=== PATIENT | female | born 1935 | race Caucasian/White ===

== ENCOUNTER 2016-11-07 13:00 | Emergency (ER) | payer MEDICARE, OTHER ==
[~2016-11-07] VITALS: Ht 162.6 cm; Wt 63.5 kg
[~2016-11-07 13:00] MED LIST: ACET-461 PO; ACHYD1T PO; ACTOS15 MG; ASP81CT; ASP81CT PO; ASP81TEC PO; ASPI-892 PO; ATOR10TA; ATOR80TA75; ATOR80TA76 PO; ATR20T PO; CANA100T PO; CLOP75TA PO; CYCL10TA9 PO; DCS100C PO; DICL100G13 TOP; DICL100G18 TP; DOCU-143 PO; DOCU100T7; EST.625T; ESTR0.755 PO; ESTR1.5T4; ESTR42.52 VG; FENO135C PO; FISH1CAP15 PO; HYDR-3720; HYDR-3816; IBP800T PO; INUL2.5T PO; LEVO500T69 PO; LOPE2TAB17 PO; LORA-794; MELA3TAB52 PO; METF500T4 PO; METR500T PO; MTF500T PO; MTP25TSR; NAPR220T66 PO; OMG1KC PO; ONDA4TAB8 PO; ONDAN4ODT PO; OXYB30GE TD; OXYC-197 PO; OXYC-471; PANT20TA2 PO; PANT40TA3 PO; PHEN1SUP3 PR; PNT40TEC PO; PRED20TA PO; PRM25T PO; PSYL575P4 PO; SIMV20TA3 PO; SMV20T PO; TEMA30CA PO; TEMA30CA6 PO; TRAM50TA2 PO; TYLENOL RAPID REL PO; VNL37.5T PO; ZOLP10TA5
--- OUTSIDE RECORDS SUMMARY | 2016-11-07 13:06 | XMS REPORT | Continuity of Care Document ---
Author Author [facility] Organization [facility] Address Unknown Phone Unavailable Support Name Relationship Address Phone JAZMIN ROPER FACPS FAC Caregiver [address] [facility] [place] [address] [place] [address] ALBERTO NAZARIO MD Caregiver [address] [facility] [place] [address] ALLISON GLORIA MD Caregiver [address] [place] [address] MUNIR ROCHE MD Caregiver [address] [place] [address] MICHELET JOHNSON Next Of Kin [address] [place] [id number] Insurance Providers Payer Name Policy Number Subscriber Name Relationship Wps Medicare [id number] Mary Johnson 18 Self / Same As Patient [place] [employer] [id number] Mary Johnson 18 Self / Same As Patient Advance Directives Directive Response Recorded Date/Time Advance Directives Yes 11/05/14 10:00am Health Care Power of Director Of Digital Technology No 11/05/14 10:00am Organ Donor Yes 11/05/14 10:00am Resuscitation Status Full Code 11/05/14 10:00am Problems Medical Problems Problem Onset Date Status Dizziness Unknown Active Vertigo Unknown Active Medications Medication Dose Route Sig Days/Qty Instructions Order Date Discontinued Date Status Pioglitazone HCl 09/18/09 11/20/10 Discontinued Estrogens Conjugated 09/18/09 09/18/09 Discontinued Atorvastatin Calcium 09/18/09 09/18/09 Discontinued Zolpidem Tartrate 09/18/09 09/18/09 Discontinued Lorazepam 09/18/09 11/20/10 Discontinued Aspirin 81 Mg PO DAILY 09/18/09 10/24/11 Discontinued Estropipate 09/18/09 11/21/10 Discontinued Simvastatin 20 Mg PO DAILY 09/18/09 10/11/11 Discontinued Venlafaxine HCl 37.5 Mg PO BEDTIME 09/18/09 Active Temazepam 30 Mg PO BEDTIME 09/18/09 Active Clopidogrel Bisulfate 75 Mg PO DAILY 12/30/09 10/24/11 Discontinued Metoprolol Succinate 12/30/09 11/20/10 Discontinued Docusate Sodium 12/30/09 11/20/10 Discontinued Acetaminophen/Hydrocodone Bitart 12/30/09 11/20/10 Discontinued Aspirin DAILY 11/20/10 11/21/10 Discontinued Metformin HCl (Glucophage) 500 Mg PO TWICE A DAY 11/20/10 08/05/14 Discontinued Fish Oil 1,000 Mg PO TWICE A DAY 11/20/10 08/05/14 Discontinued Estropipate 1.5 Mg PO BEDTIME 11/21/10 10/03/13 Discontinued Simvastatin 20 Mg PO DAILY 01/07/11 10/17/11 Discontinued Promethazine HCl 1 Tab PO FOUR TIMES DAILY 20 Qty 01/07/11 10/11/11 Discontinued Levofloxacin 1 Each PO DAILY 10 Qty FOR INFECTION 01/14/11 10/11/11 Discontinued Fenofibrate 135 Mg PO DAILY 10/11/11 Active Atorvastatin Calcium 1 Each PO DAILY 10/11/11 10/03/13 Discontinued [Tylenol Rapid Rel] 1,000 Mg PO Q6 PRN 10/11/11 10/03/13 Discontinued Atorvastatin Calcium 1 Each PO DAILY 10/17/11 10/17/11 Discontinued Acetaminophen/Hydrocodone Bitart 1 Tab PO Q 4 HOURS NEEDED 04/26/13 Discontinued Ibuprofen 800 Mg PO Q 6 HRS NEEDED 10/19/11 04/26/13 Discontinued Docusate Sodium 100 Mg PO TWICE A DAY 10/19/11 Active Clopidogrel Bisulfate 75 Mg PO DAILY 10/26/11 11/05/14 Discontinued Aspirin 81 Mg PO DAILY 10/26/11 08/05/14 Discontinued Pantoprazole Sodium 1 Tab PO DAILY 30 Qty 12/30/11 04/26/13 Discontinued Ondansetron HCl 4 Mg PO EVERY 4HRS 10 Qty FOR NAUSEA AND VOMITING 04/26/13 Discontinued Levofloxacin 1 Each PO DAILY 10 Qty 12/30/11 04/26/13 Discontinued Loperamide HCl 0 PO DIRECTED 2 CAPS INITIALLY, THEN 1 CAP AFTER 10/03/13 Discontinued Estradiol 1 Gm VG TWICE WEEKLY 10/03/13 Active Oxybutynin Chloride TD NEEDED For LEAVING THE HOUSE 10/03/13 Active Starch 1 Supp.rect [place] DAILY PRN HEMORRHOIDS 10/03/13 Active Fish Oil/Dha/Epa 1,200 Mg PO TWICE A DAY 08/05/14 Active Aspirin 81 Mg PO DAILY 08/05/14 Active Atorvastatin Calcium 20 Mg PO DAILY NIGHT 08/05/14 Active Atorvastatin Calcium 40 Mg PO BEDTIME 08/05/14 Active Acetaminophen 1,000 Mg PO BEDTIME TAKES 2 (500MG) TABLETS 08/05/14 Active Diclofenac Sod 2 Gm TOP FOUR TIMES DAILY 08/05/14 Active Inulin 4 Tab.chew PO DAILY 08/05/14 Active Pantoprazole Sodium 40 Mg PO DAILY 90 Qty 11/05/14 Active Social History Social History Problem Response Recorded Date/Time Alcohol Use Denies Use 10/03/2013 1:20pm Recreational Drug Use No 10/03/2013 1:20pm Recent Foreign Travel No 11/05/2014 10:00am Smoking Status Never a Smoker 11/05/2014 10:00am Query Response Start Date Stop Date Smoking Status Never a Smoker Hospital Discharge Instructions No hospital discharge instructions. Plan of Care No plan of care. Functional Status No functional status results. Allergies, Adverse Reactions, Alerts Allergen Type Severity Reaction Status Last Updated Sulfa (Sulfonamide Antibiotics) ([id number]) Allergy Unknown Active 05/12 Immunizations Name Given Type Date of Pneumonia Vaccine 11/18/09 Historical Date of Influenza Vaccine 08/05/14 Historical Vital Signs Acute Vital Signs Vital Response Date/Time Temperature (Fahrenheit) 97.6 degrees F (97.6 - 99.5) Temperature (Calculated Celsius) 36.50796 degrees C (36.4 - 37.5) Temperature Source Tympanic Pulse Rate (adult) 72 bpm (60 - 90) Respiratory Rate 14 bpm (12 - 24) O2 Sat by Pulse Oximetry 94 % (88 - 100) Blood Pressure 124/63 mm Hg Pain Pain Intensity 0 Height (Feet) 5 feet Height (Inches) 3.00 inches Height (Calculated Centimeters) 160.850820 cm Weight (Pounds) 146 pounds Weight (Calculated Grams) 77785.487 gm Weight (Calculated Kilograms) 66.898163 kilograms Height 5 ft 3 in Weight 146 lb Body Mass Index 25.9 kg/m^2 Results No known relevant diagnostic tests, laboratory data and/or discharge summary. Procedures Procedure Status Date Provider(s) Esophagogastroduodenoscopy (EGD) with dilation completed 11/05/14 ALBERTO NAZARIO MD Encounters Encounter Location Date/Time Registered Surgical Day Care Via [facility] 11/05/14 9:50am Registered Clinic Via [facility] 10/31/14 6:08am
[2016-11-07] MEDS ORDERED: CHOL20003 PO (14:03)
[2016-11-07] MEDS ORDERED: Probiotic (14:03)
--- NOTE | 2016-11-07 14:34 | ED General ---
General Chief Complaint: Cough/Cold/Flu Symptoms Stated Complaint: CONGESTION, WELTS, CONFUSION Nursing Triage Note: Pt c/o sore throat, runny nose, headache, and congestion x 2 weeks. Pt also c/o itchy welts to arms and legs that started throughout the night last night. Nursing Sepsis Screen: No Definite Risk Source of Information: Patient Exam Limitations: No Limitations History of Present Illness Time Seen by Provider: 14:34 Initial Comments 81-year-old female patient presents to the emergency department complaints of nasal congestion, rhinorrhea, sore throat, and headache for 2 weeks. Also complains of welts to the bilateral upper and bilateral lower extremities beginning last night. Patient initially denied any new medications, changes in soaps, new foods, or new lotions. However reviewing medical reconciliation history patient is noted just started metronidazole. Patient states she does have 2-3 days left of the medication. States she is being treated for C. difficile that she may undergo bladder surgery as an outpatient. Timing/Duration: Other (URI x2 wks. Rash x12-16 hours.) Modifying Factors: worse with Other (worse with scratching) Allergies and Home Medications Allergies Coded Allergies: metronidazole (Verified Allergy, Intermediate, hives, 11/07/16) Sulfa (Sulfonamide Antibiotics) (Unverified Allergy, Unknown, 08/05/14) ciprofloxacin (Verified Allergy, Unknown, ITCHING, 09/03/15) Home Medications Acetaminophen 500 Mg Tablet 1,000 MG PO Q6H PRN PRN PAIN (Reported) TAKES 2 (500MG) TABLETS Atorvastatin Calcium 40 Mg Tablet 40 MG PO DAILY (Reported) Cholecalciferol (Vitamin D3) 2,000 Unit Capsule 2,000 UNIT PO BID (Reported) Diphenoxylate HCl/Atropine 1 Each Tablet 1 TAB PO QID PRN PRN DIARRHEA (Reported ) Docusate Sodium 100 Mg Capsule 100 MG PO BID (Reported) Estrogens Conjugated 30 Gm Cr 0.5 GM VG RAJAN,WE (Reported) Famotidine 20 Mg Tablet 20 MG PO BID (Reported) Insulin Aspart 100 Unit/1 Ml Susp 3 UNIT SQ BID WITH MEALS (Reported) TAKES WITH MORNING AND EVENING MEAL Lactobacillus Acidophilus 1 Each Capsule 1 CAP PO BID (Reported) Melatonin 3 Mg Tab.rapdis 6 MG PO HS (Reported) TAKES 2 (3MG) TABLETS Nitrofurantoin Monohyd/M-Cryst 100 Mg Capsule 7Days 100 MG PO BID (Reported) 7 DAY THERAPY FILLED 11-16-16 Phenazopyridine HCl 200 Mg Tablet 200 MG PO TID PRN PRN PAIN (Reported) Temazepam 30 Mg Capsule 30 MG PO HS (Reported) Tramadol HCl 50 Mg Tablet 50 MG PO Q6H PRN PRN PAIN (Reported) Constitutional: No chills, No diaphoresis, No dizziness, No fever, malaise EENTM: see HPI Respiratory: No cough, No dyspnea on exertion, No orthopnea, No short of breath , No stridor, No wheezing Cardiovascular: No chest pain, No edema, No palpitations, No syncope Gastrointestinal: No abdominal pain, No constipation, No diarrhea, No loss of appetite, No nausea, No vomiting Genitourinary: no symptoms reported Musculoskeletal: no symptoms reported Skin: see HPI rash Psychiatric/Neurological: See HPI HeadacheDenies Numbness, Denies Paresthesia , Denies Tingling, Denies Weakness Immunological/Allergic: see HPI All Other Systems Reviewed Negative Unless Noted: Yes (Negative excepted noted.) Past Qbalxam-Dbaezj-Bsgejd Hx Patient Social History Alcohol Use: Denies Use Recreational Drug Use: No Smoking Status: Former Smoker Former Smoker/When Quit: Oct 30, 1999 Recent Foreign Travel: No Contact w/Someone Who Travel: No Recent Infectious Disease Expo: No Physical Abuse Screen: No Sexual Abuse: No Immunizations Up To Date Tetanus Booster (TDap): Unknown PED Vaccines UTD: No Date of Pneumonia Vaccine: May 17, 2016 Date of Influenza Vaccine: Aug 17, 2016 Seasonal Allergies Seasonal Allergies: No Surgeries HX Surgeries: Yes (BACK, HAD TO HAVE 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) Surgeries: Appendectomy, Gallbladder, Hysterectomy Respiratory Hx Respiratory Disorders: Yes (IS TO HAVE A SLEEP STUDY) Respiratory Disorders: Pneumonia Cardiovascular Hx Cardiac Disorders: Yes (STENTS, 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) Neurological Hx Neurological Disorders: No Reproductive System Hx Reproductive Disorders: Yes Sexually Transmitted Disease: No HIV/AIDS: No Female Reproductive Disorders: Denies Genitourinary Hx Genitourinary Disorders: Yes Genitourinary Disorders: Bladder Infection Gastrointestinal Hx Gastrointestinal Disorders: Yes Gastrointestinal Disorders: Gastroesophageal Reflux, Chronic Constipation, Diverticulosis, Hemorrhoids, Polyps Musculoskeletal Hx Musculoskeletal Disorders: Yes Musculoskeletal Disorders: Arthritis, Chronic Back Pain Endocrine Hx Endocrine Disorders: Yes Endocrine Disorders: Diabetes, Non-Insulin dep HEENT HX ENT Disorders: Yes (GLASSES) Loss of Vision: Bilateral Hearing Impairment: Denies Cancer Hx Cancer: No Psychosocial Hx Psychiatric Problems: No (IN THE PAST) Behavioral Health Disorders: Depression Integumentary HX Skin/Integumentary Disorder: Yes (OCCASIONALLY) Skin/Integumentary Disorders: Psoriasis Blood Transfusions Hx Blood Disorders: Yes (ANEMIA-FROM HEMORRHOIDS) Adverse Reaction to a Blood Tr: No (HAS HAD BLOOD TRANSFUSION WITH NO DIFFICULTY) Family Medical History Significant Family History: No Pertinent Family Hx Family Medial History: Cancer of mouth Diabetes mellitus 19 FATHER Dysphasia G8 SISTER FH: thyroid cancer Myocardial infarction 19 FATHER Physical Exam Vital Signs Capillary Refill : Less Than 3 Seconds General Appearance: No Apparent Distress WD/WN HEENT: PERRL/EOMI TMs Normal Pharyngeal ErythemaNo Photophobia, Other ( positive rhinorrhea.) Neck: Full Range of Motion Normal Inspection Non Tender Supple Respiratory: Lungs Clear Normal Breath Sounds No Respiratory Distress Cardiovascular: Regular Rate, Rhythm No Murmur Normal Peripheral Pulses Gastrointestinal: Normal Bowel Sounds Non Tender SoftNo Distended Back: Normal Inspection Extremity: Normal Capillary Refill Non Tender No Calf Tenderness No Pedal Edema Other (positive wheals noted on the bilateral upper and bilateral lower extremities.) Neurologic/Psychiatric: Alert Oriented x3 No Motor/Sensory Deficits Normal Mood/Affect kier pleater II-XII Norm as Tested Skin: Normal Color Warm/DryNo Cool, No Cyanosis, No Diaphoresis, No Jaundice, No Mottled, No Pallor, No Petechia, Rash (positive wheals noted on the bilateral upper and bilateral lower extremities.) Progress/Results/Core Measures Results/Orders Lab Results My Orders Medications Given in ED Vital Signs/I&O Blood Pressure Mean: 89 Departure Communication Progress Notes Laboratory findings discussed with the patient. Patient is noted to have improvement in rash with the medications given in the emergency department. Patient is alert and oriented 3, no acute distress. Lungs are clear to auscultation. Vascular regular rate and rhythm. Proceed with discharge to home. Patient instructed to contact Dr. Loyola and follow-up as an outpatient for recheck. Patient instructed to stop the metronidazole immediately. All return precautions were discussed with the patient as described in the discharge instructions of this report. Patient voices understanding and agrees with the treatment plan. Impression Impression: Primary Impression: Urticaria due to drug allergy Additional Impression: C. difficile diarrhea Disposition: HOME, SELF-CARE Condition: Improved Departure-Patient Inst. Decision time for Depature: 15:48 Referrals: ALLISON LOYOLA MD (PCP/Family) Primary Care Physician Add. Discharge Instructions: All discharge instructions reviewed with patient and/or family. Voiced understanding. Medications as instructed. Claritin over the counter as directed for allergic reaction. Benadryl [id number] as directed for breakthrough rash or itching. Cool compresses. Stop metronidazole immediately. Drink plenty of fluids. Monitor blood sugars closely. Follow-up with Dr. Loyola as an outpatient for recheck. Discuss need for diabetic medication change. Return to the emergency department immediately for worsened hives, swelling, difficulty swallowing, difficulty breathing, vomiting, headache, or any other concerns. NATHAN BAUGH Nov 07, 2016 14:34 Decision time for Depature: 15:48 Referrals: ALLISON LOYOLA MD (PCP/Family) Primary Care Physician Add. Discharge Instructions: All discharge instructions reviewed with patient and/or family. Voiced understanding. Medications as instructed. Claritin over the counter as directed for allergic reaction. Benadryl [id number] as directed for breakthrough rash or itching. Cool compresses. Stop metronidazole immediately. Drink plenty of fluids. Monitor blood sugars closely. Follow-up with Dr. Loyola as an outpatient for recheck. Discuss need for diabetic medication change. Return to the emergency department immediately for worsened hives, swelling, difficulty swallowing, difficulty breathing, vomiting, headache, or any other concerns. Scripts Prednisone 20 Mg Tab20 Mg PO DAILY #3 TAB Ref 0 Prov:NATHAN BAUGH 11/07/16 Famotidine (Pepcid)20 Mg [id number] Mg PO BID #20 TAB Ref 0 Prov:NATHAN BAUGH 11/07/16 NATHAN BAUGH Nov 07, 2016 14:34
[2016-11-07] MEDS ORDERED: methylPREDNISolone 125 MG (Solu-MEDROL) VIAL IV STA (14:54)
[2016-11-07] MEDS ORDERED: NS IV 1000 ML 1,000 ML IV ONE (14:54)
[2016-11-07] MEDS ORDERED: diphenhydrAMINE 50 MG/ML INJ (BENADRYL) IV STA (14:54)
[2016-11-07] MEDS ORDERED: FAMOTIDINE 20MG/2ML IV (PEPCID) IV STA (14:54)
[2016-11-07] MEDS ORDERED: FAMO-119 PO (15:51)
[2016-11-07] MEDS ORDERED: PRD20T PO (15:51)
[2016-11-07 17:26] VITALS: BP 138/63
[2016-11-15] MEDS ORDERED: NOVALOG SQ (12:37)
[2016-11-15] MEDS ORDERED: ATOR40TA70 PO (12:37)
[2016-11-15] MEDS ORDERED: BIFI460C PO (12:37)
== END 2016-11-07 17:26 | disposition home or self-care (01) ==
LOC: EDUNIT# 13:00 → ER 13:01
DX: L50.0 Allergic urticaria (principal); E11.9 Type 2 diabetes mellitus without complications; Z79.82 Long term (current) use of aspirin; Z79.899 Other long term (current) drug therapy
CPT/HCPCS: 82962; 96374; 96375

== ENCOUNTER 2016-11-15 12:40 | Outpatient (CLI) | payer MEDICARE, OTHER ==
--- OUTSIDE RECORDS SUMMARY | 2016-11-14 05:42 | XMS REPORT | Continuity of Care Document ---
Author Author [facility] Organization [facility] Address Unknown Phone Unavailable Support Name Relationship Address Phone JAZMIN ROPER FACPS FAC Caregiver [address] [facility] [address] [place] [address] ALBERTO NAZARIO MD Caregiver [address] [facility] [place] [address] ALLISON GLORIA MD Caregiver [address] [place] [address] MUNIR ROCHE MD Caregiver [address] [place] [address] MICHELET JOHNOSN Next Of Kin [address] [place] [id number] Insurance Providers Payer Name Policy Number Subscriber Name Relationship Wps Medicare [id number] Mary Johnson 18 Self / Same As Patient [place] [employer] [id number] Mary Johnson 18 Self / Same As Patient Advance Directives Directive Response Recorded Date/Time Advance Directives Yes 11/05/14 10:00am Health Care Power of Cane Flume Watcher No 11/05/14 10:00am Organ Donor Yes 11/05/14 [...] THE HOUSE 10/03/13 Active Starch 1 Supp.rect [place] DAILY PRN HEMORRHOIDS 10/03/13 Active Fish Oil/Dha/Epa [...] Reaction Status Last Updated Sulfa (Sulfonamide Antibiotics) ([id number]) Allergy Unknown Active 05/12 Immunizations Name Given Type Date of Pneumonia Vaccine 11/18/09 Historical Date of Influenza Vaccine 08/05/14 Historical Vital Signs Acute Vital Signs Vital Response Date/Time Temperature (Fahrenheit) 97.6 degrees F (97.6 - 99.5) Temperature (Calculated Celsius) 36.88289 degrees C (36.4 - 37.5) Temperature Source Tympanic Pulse Rate (adult) 72 bpm (60 - 90) Respiratory Rate 14 bpm (12 - 24) O2 Sat by Pulse Oximetry 94 % (88 - 100) Blood Pressure 124/63 mm Hg Pain Pain Intensity 0 Height (Feet) 5 feet Height (Inches) 3.00 inches Height (Calculated Centimeters) 160.873422 cm Weight (Pounds) 146 pounds Weight (Calculated Grams) 20301.487 gm Weight (Calculated Kilograms) 66.091971 kilograms Height 5 ft 3 in Weight 146 lb Body Mass Index 25.9 kg/m^2 Results No known relevant diagnostic tests, laboratory data and/or discharge summary. Procedures Procedure Status Date Provider(s) Esophagogastroduodenoscopy (EGD) with dilation completed 11/05/14 ALBERTO NAZARIO MD Encounters Encounter Location Date/Time Registered Surgical Day Care [facility] 11/05/14 9:50am Registered Clinic [facility] 10/31/14 6:08am
[~2016-11-15] VITALS: Ht 162.6 cm; Wt 63.8 kg
[~2016-11-15 12:40] MED LIST changes: +ATOR40TA70 PO; +BIFI460C PO; +CHOL20003 PO; +FAMO-119 PO; +NOVALOG SQ; +PRD20T PO; +Probiotic
--- OUTSIDE RECORDS SUMMARY | 2016-11-15 12:43 | XMS REPORT | Continuity of Care Document ---
Author Author [facility] Organization [facility] Address Unknown Phone Unavailable Support Name Relationship Address Phone JAZMIN ROPER FACPS FAC Caregiver [address] [facility] [place] [address] [place] [address] ALBERTO NAZARIO MD Caregiver [address] [facility] [place] [address] ALLISON GLORIA MD Caregiver [address] [facility] [address] MUNIR ROCHE MD Caregiver [address] [place] [address] MICHELET JOHNSON Next Of Kin [address] [place] [id number] Insurance Providers Payer Name Policy Number Subscriber Name Relationship Wps Medicare [id number] Mary Johnson 18 Self / Same As Patient [place] [employer] [id number] Mary Johnson 18 Self / Same As Patient Advance Directives Directive Response Recorded Date/Time Advance Directives Yes 11/05/14 10:00am Health Care Power of Heavy Cleaner No 11/05/14 10:00am Organ Donor Yes 11/05/14 [...] THE HOUSE 10/03/13 Active Starch 1 Supp.rect [place] DAILY PRN HEMORRHOIDS 10/03/13 Active Fish Oil/Dha/Epa [...] Reaction Status Last Updated Sulfa (Sulfonamide Antibiotics) ([id number]) Allergy Unknown Active 05/12 Immunizations Name Given Type Date of Pneumonia Vaccine 11/18/09 Historical Date of Influenza Vaccine 08/05/14 Historical Vital Signs Acute Vital Signs Vital Response Date/Time Temperature (Fahrenheit) 97.6 degrees F (97.6 - 99.5) Temperature (Calculated Celsius) 36.28340 degrees C (36.4 - 37.5) Temperature Source Tympanic Pulse Rate (adult) 72 bpm (60 - 90) Respiratory Rate 14 bpm (12 - 24) O2 Sat by Pulse Oximetry 94 % (88 - 100) Blood Pressure 124/63 mm Hg Pain Pain Intensity 0 Height (Feet) 5 feet Height (Inches) 3.00 inches Height (Calculated Centimeters) 160.915945 cm Weight (Pounds) 146 pounds Weight (Calculated Grams) 03687.487 gm Weight (Calculated Kilograms) 66.568825 kilograms Height 5 ft 3 in Weight 146 lb Body Mass Index 25.9 kg/m^2 Results No known relevant diagnostic tests, laboratory data and/or discharge summary. Procedures Procedure Status Date Provider(s) Esophagogastroduodenoscopy (EGD) with dilation completed 11/05/14 ALBERTO NAZARIO MD Encounters Encounter Location Date/Time Registered Surgical Day Care [facility] 11/05/14 9:50am Registered Clinic [facility] 10/31/14 6:08am
[2016-11-16] MEDS ORDERED: PHEN-640 PO (08:43)
[2016-11-16] MEDS ORDERED: NITR-68 PO (08:43)
== END 2016-11-15 12:53 ==
LOC: PREOP 12:40
PROVIDERS: ATTEND Urology
DX: Z01.818 Encounter for other preprocedural examination (principal); D49.4 Neoplasm of unspecified behavior of bladder

== ENCOUNTER 2016-11-16 05:58 | Day surgery (SDC) | payer MEDICARE, OTHER ==
[~2016-11-16] VITALS: Ht 162.6 cm; Wt 63.8 kg
--- OUTSIDE RECORDS SUMMARY | 2016-11-16 06:02 | XMS REPORT | Continuity of Care Document ---
Author Author [facility] Organization [facility] Address Unknown Phone Unavailable Care Team Providers Care Nurses Superintendent Name Role Phone ALLISON GLORIA MD PCP Insurance Providers Payer Name Policy Number Subscriber Name Relationship [employer] Medicare [id number] Mary Johnson A 18 Self / Same As Patient [employer] [id number] Mary Johnson A 18 Self / Same As Patient Advance Directives Directive Response Recorded Date/Time Advance Directives No 11/15/16 12:32pm Health Care Power of Cigar Making Supervisor No 11/15/16 12:32pm Organ Donor No 11/15/16 12:32pm Resuscitation Status Full Code 11/15/16 12:32pm Problems Active Problems Medical Problem Onset Date Status Abdominal pain Unknown Acute C. difficile diarrhea Unknown Acute Diarrhea Unknown Acute Dizziness Unknown Acute Lesion of bladder Unknown Acute Muscle strain of left upper back Unknown Acute Muscle strain of left upper back Unknown Acute Nausea vomiting and diarrhea Unknown Acute Urinary tract infection Unknown Acute Urticaria due to drug allergy Unknown Acute Vertigo Unknown Acute anemia, symptomatic hemorrhoids Unknown Acute Medications Current Home Medications Medication Dose Units Route Directions Days/Qty Instructions Start Date Docusate Sodium 100 Mg 100 Mg Oral Twice A Day 10/19/11 Aspirin 81 Mg 81 Mg Oral Daily 08/05/14 Acetaminophen 500 Mg 1,000 Mg Oral Every 6 Hours as needed for Pain TAKES 2 (500MG) TABLETS 08/05/14 Tramadol Hcl 50 Mg 50 Mg Oral Twice A Day as needed for Pain Pantoprazole Sodium 40 Mg 40 Mg Oral Daily 09/03/15 Temazepam 30 Mg 30 Mg Oral Bedtime as needed for Sleep 09/03/15 Melatonin 3 Mg 12 Mg Oral Bedtime as needed for Insomnia TAKES 4 (3MG) TABLETS 09/03/15 Cholecalciferol (Vitamin D3) 2,000 Unit 2,000 Unit Oral Daily Famotidine 20 Mg 20 Mg Oral Twice A Day 20 11/07/16 Atorvastatin Calcium 40 Mg 40 Mg Oral Daily 11/15/16 Bifidobacter. Bifidum/B.longum 460 Mg 460 Mg Oral Daily 11/15/16 [Novalog] 3 Units Sub-Q Twice A Day 11/15/16 Past Home Medications Medication Directions Ordered Status Pioglitazone Hcl 15 Mg Tablet, 09/18/09 Discontinued Estrogens Conjugated 0.625 Mg Tablet, 09/18/09 Discontinued Atorvastatin Calcium 10 Mg Tablet, 09/18/09 Discontinued Zolpidem Tartrate 10 Mg Tablet, 09/18/09 Discontinued Lorazepam 0.5 Mg Tablet, 09/18/09 Discontinued Aspirin 81 Mg Tabec, 81 Mg Oral Daily 09/18/09 Discontinued Estropipate 1.5 Mg Tablet, 09/18/09 Discontinued Simvastatin 20 Mg Tab, 20 Mg Oral Daily 09/18/09 Discontinued Venlafaxine Hcl 37.5 Mg Tablet, 37.5 Mg Oral Bedtime 09/18/09 Discontinued Temazepam 30 Mg Capsule, 30 Mg Oral Bedtime 09/18/09 Discontinued Clopidogrel Bisulfate 75 Mg Tablet, 75 Mg Oral Daily 12/30/09 Discontinued Metoprolol Succinate (Metoprolol Er 25MG) 25 Mg Tab, 12/30/09 Discontinued Docusate Sodium 100 Mg Tablet, 12/30/09 Discontinued Acetaminophen/Hydrocodone Bitart 1 Ea Tab, 12/30/09 Discontinued Aspirin 81 Mg Chew, Daily 11/20/10 Discontinued Metformin Hcl (Glucophage) 500 Mg Tablet, 500 Mg Oral Twice A Day 11/20/10 Discontinued Fish Oil 1,000 Mg Cap, 1000 Mg Oral Twice A Day 11/20/10 Discontinued Estropipate 0.75 Mg Tablet, 1.5 Mg Oral Bedtime 11/21/10 Discontinued Simvastatin 20 Mg Tablet, 20 Mg Oral Daily 01/07/11 Discontinued Promethazine Hcl 25 Mg Tablet, 1 Tab Oral Four Times Daily 01/07/11 Discontinued Levofloxacin 500 Mg Tab, 1 Each Oral Daily 01/14/11 Discontinued Fenofibrate 135 Mg Capsule.dr, 135 Mg Oral Daily 10/11/11 Discontinued Atorvastatin Calcium 20 Mg Tablet, 1 Each Oral Daily 10/11/11 Discontinued [Tylenol Rapid Rel] , 1000 Mg Oral Every 6 Hours as needed 10/11/11 Discontinued Atorvastatin Calcium 20 Mg Tablet, 1 Each Oral Daily 10/17/11 Discontinued Acetaminophen/Hydrocodone Bitart 1 Tab Tablet, 1 Tab Oral Q 4 Hours As Needed 10/19/11 Discontinued Ibuprofen 800 Mg Tab, 800 Mg Oral Q 6 Hrs As Needed 10/19/11 Discontinued Clopidogrel Bisulfate 75 Mg Tablet, 75 Mg Oral Daily 10/26/11 Discontinued Aspirin 81 Mg Chew, 81 Mg Oral Daily 10/26/11 Discontinued Pantoprazole Sodium 40 Mg Tablet.dr, 1 Tab Oral Daily 12/30/11 Discontinued Ondansetron Hcl 4 Mg Tab, 4 Mg Oral Every 4HRS 12/30/11 Discontinued Levofloxacin 500 Mg Tab, 1 Each Oral Daily 12/30/11 Discontinued Loperamide Hcl 2 Mg Tablet, 0 Oral As Directed 04/26/13 Discontinued Estradiol 42.5 Gm Cream.appl, 1 Gm Vaginal Twice Weekly 10/03/13 Discontinued Oxybutynin Chloride 30 Gm Gel.packet, Transderm As Needed for Leaving The House 10/03/13 Discontinued Starch 1 Ea Supp, 1 Supp.rect Rectal Daily as needed for Hemorrhoids Discontinued Fish Oil/Dha/Epa 1 Each Capsule, 1200 Mg Oral Twice A Day 08/05/14 Discontinued Atorvastatin Calcium 20 Mg Tablet, 20 Mg Oral Daily 08/05/14 Discontinued Atorvastatin Calcium 20 Mg Tablet, 40 Mg Oral Bedtime 08/05/14 Discontinued Diclofenac Sod 100 Gm Gel, 2 Gm Topically Four Times Daily 08/05/14 Discontinued Inulin 2.5 Gm Tab.chew, 4 Tab.chew Oral Daily 08/05/14 Discontinued Pantoprazole Sodium 20 Mg Tablet.dr, 40 Mg Oral Daily 11/05/14 Discontinued Atorvastatin Calcium 80 Mg Tablet, 80 03/23/15 Discontinued Hydrocodone Bit/Acetaminophen 1 Tab Tablet, 03/23/15 Discontinued Tramadol Hcl 50 Mg Tablet, 50 Mg Oral Every 4HRS as needed for Pain 03/23/15 Discontinued Cyclobenzaprine Hcl (Flexeril) 10 Mg Tablet, 0.5-1 Each Oral Every 8HRS as needed for Spasms 03/23/15 Discontinued Prednisone 20 Mg Tablet, 40 Mg Oral Daily 03/23/15 Discontinued Tramadol Hcl 50 Mg Tablet, 50 Mg Oral Every 4HRS as needed for Pain 03/23/15 Discontinued Diclofenac Sodium 100 Gm Gel..gram., Topical Daily as needed for Pain 09/03 Discontinued Metformin Hcl 500 Mg Tablet, 500 Mg Oral Twice A Day 09/03/15 Discontinued Oxycodone Hcl/Acetaminophen 1 Each Tablet, 1-2 Each Oral Every 6 Hours Discontinued Atorvastatin Calcium 80 Mg Tablet, 80 Mg Oral Daily 10/08/15 Discontinued Diclofenac Sodium 100 Gm Gel..gram., Topical Four Times Daily as needed for Pain 10/08/15 Discontinued Docusate Sodium 100 Mg Capsule, 100 Mg Oral Twice A Day 10/10/15 Discontinued Oxycodone Hcl/Acetaminophen 1 Each Tablet, as needed for Prn 11/08/15 Discontinued Naproxen Sodium 220 Mg Tablet, 220 Mg Oral Twice A Day as needed for Pain Discontinued Psyllium Seed (With Sugar) 822 Gm Powder, 2 Tbs Oral Daily as needed for Constipation 11/13/15 Discontinued Metronidazole 500 Mg Tablet, 500 Mg Oral Every 8HRS 11/16/15 Discontinued Canagliflozin 100 Mg Tablet, 100 Mg Oral Daily 10/27/16 Discontinued Ondansetron 4 Mg Tab.rapdis, 4 Mg Oral Every 4HRS as needed for Nausea/ Vomiting 10/28/16 Discontinued [Probiotic] , 11/07/16 Discontinued Prednisone 20 Mg Tab, 20 Mg Oral Daily 11/07/16 Discontinued Social History Social History Problem Response Recorded Date/Time Alcohol Use Denies Use 05/19/2016 2:24pm Recreational Drug Use No 05/19/2016 2:24pm Recent Foreign Travel No 11/15/2016 12:30pm Recent Infectious Disease Exposure No 11/15/2016 12:30pm Sexually Transmitted Disease No 11/15/2016 12:32pm HIV/AIDS No 11/15/2016 12:32pm Smoking Status Former Smoker 11/15/2016 12:32pm Do you dip or chew tobacco? No 11/13/2015 3:00pm Recent Hopitalizations EGD 10/14/16, CDIFF 11/15/2016 12:32pm Sexually Transmitted Disease No 11/15/2016 12:32pm Query Response Start Date Stop Date Smoking Status Former Smoker 10/30/1999 Hospital Discharge Instructions No hospital discharge instructions. Plan of Care Discharge Date 11/15/16 12:53pm Prescriptions See Medication Section Functional Status No functional status results. Allergies, Adverse Reactions, Alerts Allergen Type Severity Reaction Status Last Updated Sulfa (Sulfonamide Antibiotics) ([id number]) Allergy Unknown Active 05/12 ciprofloxacin ([id number]) Allergy Unknown ITCHING Active 09/03/15 metronidazole ([id number]) Allergy Intermediate hives Active 11/07/16 Immunizations No immunization records. Vital Signs Acute Vital Signs Vital Response Date/Time Temperature (Fahrenheit) 98.4 degrees F (97.6 - 99.5) 11/07/2016 5:26pm Temperature (Calculated Celsius) 36.88483 degrees C (36.4 - 37.5) 11/07/2016 5:26pm Temperature Source Temporal 11/07/2016 5:26pm Pulse Rate (adult) 84 bpm (60 - 90) 11/07/2016 5:26pm Respiratory Rate 18 bpm (12 - 24) 11/07/2016 5:26pm O2 Sat by Pulse Oximetry 95 % (88 - 100) 11/07/2016 5:26pm Blood Pressure 138/63 mm Hg 11/07/2016 5:26pm Blood Pressure Mean 89 mm Hg 11/07/2016 1:13pm Pain Numeric Pain Scale 4 11/07/2016 5:26pm Pain Intensity 0 10/17/2016 1:15pm Height (Feet) 5 feet 11/15/2016 12:30pm Height (Inches) 4.00 inches 11/15/2016 12:30pm Height (Calculated Centimeters) 162.064876 cm 11/15/2016 12:30pm Weight (Pounds) 140 pounds 11/15/2016 12:30pm Weight (Ounces) 9.6 oz 11/15/2016 12:30pm Weight (Calculated Grams) 10252.09 gm 11/15/2016 12:30pm Weight (Calculated Kilograms) 63.992279 kilograms 11/15/2016 12:30pm Calculated BMI 24.1 11/15/2016 12:30pm Capillary Refill Capillary Refill Less Than 3 Seconds 11/07/2016 1:13pm Results Laboratory Results Test Name Result Units Flags Reference Collection Date/Time Result Date/ Time Comments Glucometer 138 MG/DL H 70-110 10/17/2016 10:40am 10/17/2016 10:49am Pending Laboratory Results Test Name Collection Date/Time Pending Microbiology Results Procedure Source Collection Date/Time Procedures Procedure Status Date Provider(s) EGD BIOPSY SINGLE/MULTIPLE Completed 10/17/16 DIANE PORTILLO MD Encounters Encounter Location Arrival/Admit Date Discharge/Depart Date Attending Provider Registered Clinic [facility] 11/15/16 12:40pm MUNIR ROCHE MD Departed Emergency Room [facility] 11/07/16 1:01pm 11/07 5:26pm NATHAN BAUGH Departed Emergency Room [facility] 10/28/16 10:56am 12:25pm LOPEZ KEE APRN Registered Recurring [facility] 10/28/16 9:43am JOYCE MONAE APRN Departed Emergency Room [facility] 10/27/16 11:12am 2:53pm GRIFFIN FAYE Departed [facility] 10/17/16 9:52am 1:20pm DIANE PORTILLO MD
--- OUTSIDE RECORDS SUMMARY | 2016-11-16 06:03 | XMS REPORT | Continuity of Care Document ---
Author Author [facility] Organization [facility] Address Unknown Phone Unavailable Care Team Providers Care Employment Educational Coord Name Role Phone ALLISON GLORIA MD PCP Insurance Providers Payer Name Policy Number Subscriber Name Relationship Wps Medicare [id number] Mary Johnson A 18 Self / Same As Patient [employer] [id number] Mary Johnson A 18 Self / Same As Patient Advance Directives Directive Response Recorded Date/Time Advance Directives No 11/15/16 12:32pm Health Care Power of Branch Director No 11/15/16 12:32pm Organ Donor No 11/15/16 [...] Reaction Status Last Updated Sulfa (Sulfonamide Antibiotics) ([id number]) Allergy Unknown Active 05/12 ciprofloxacin ([id number]) Allergy Unknown ITCHING Active 09/03/15 metronidazole ([id number]) Allergy Intermediate hives Active 11/07/16 Immunizations No immunization records. Vital Signs Acute Vital Signs Vital Response Date/Time Temperature (Fahrenheit) 98.4 degrees F (97.6 - 99.5) 11/07/2016 5:26pm Temperature (Calculated Celsius) 36.32465 degrees C (36.4 - 37.5) 11/07/2016 5:26pm [...] 4.00 inches 11/15/2016 12:30pm Height (Calculated Centimeters) 162.420550 cm 11/15/2016 12:30pm Weight (Pounds) 140 pounds 11/15/2016 12:30pm Weight (Ounces) 9.6 oz 11/15/2016 12:30pm Weight (Calculated Grams) 32020.09 gm 11/15/2016 12:30pm Weight (Calculated Kilograms) 63.495204 kilograms 11/15/2016 12:30pm Calculated BMI 24.1 11/15/2016 [...] Discharge/Depart Date Attending Provider Registered Clinic [facility] 11/15/16 12:40pm MUNIR ROCHE MD Departed Emergency Room [facility] 11/07/16 1:01pm 11/07 5:26pm NATHAN BAUGH Departed Emergency Room [facility] 10/28/16 10:56am 12:25pm LOPEZ KEE APRN Registered Recurring [facility] 10/28/16 9:43am JOYCE MONAE APRN Departed Emergency Room [facility] 10/27/16 11:12am 2:53pm GRIFFIN FAYE Departed [facility] Day [facility] 10/17/16 9:52am 1:20pm DIANE PORTILLO MD
[2016-11-16 06:30] VITALS: BP 125/79
[2016-11-16] MEDS ORDERED: ONDANSETRON 4 MG/2 ML (SDV) Z0FRAN ONE (06:59)
[2016-11-16] MEDS ORDERED: LACTATED RINGERS 1,000 ML IV ONE (06:59)
[2016-11-16] MEDS ORDERED: LIDOCAINE PF 2% 10 ML (XYLOCAINE) AMP ONE (06:59)
[2016-11-16] MEDS ORDERED: proPOfol 200 MG/20 ML (DIPRIVAN) VIAL IV ONE (06:59)
[2016-11-16] MEDS ORDERED: SEVOFLURANE (ULTANE) 15 ML INHAL SOLN ONE (06:59)
[2016-11-16] MEDS ORDERED: fentaNYL INJECTION 100 MCG/2 ML AMP ONE (07:00)
[2016-11-16] MEDS ORDERED: LACTATED RINGERS 1,000 ML IV PRN (07:00)
[2016-11-16] MEDS ORDERED: FAMOTIDINE 20MG/2ML IV (PEPCID) IV ONE (07:00)
--- NOTE | 2016-11-16 07:04 | Progress Note-Pre Operative ---
Pre-Operative Progress Note H&P Reviewed The H&P was reviewed, patient examined and no changes noted. Date H&P Reviewed: Nov 16, 2016 Time H&P Reviewed: 07:04 Pre-Operative Diagnosis: Bladder Tumor MUNIR ROCHE MD Nov 16, 2016 7:04 am
--- NOTE | 2016-11-16 07:05 | Progress Note-Post Operative ---
Post-Operative Progess Note Pre-Operative Diagnosis Bladder Tumor (small) Post-Operative Diagnosis same Post-Op Procedure Note Date of Procedure: Nov 16, 2016 Name of Procedure: TURBT Anesthesia Type General Specimen(s) collected bladder tumor chips and base MUNIR ROCHE MD Nov 16, 2016 7:05 am
--- NOTE | 2016-11-16 07:06 | Discharge Inst-Urology ---
Discharge Inst-Urology Discharge Medications New, Converted, or Re-newed RX: RX on Chart Patient Instructions/Follow Up Plan Please make appointment to been seen in office in 2 weeks. Increase oral fluids for 48 hours and then as needed. Diet and Activity as tolerated. If questions or concerns contact your physician Or seek help at emergency department. MUNIR ROCHE MD Nov 16, 2016 7:06 am
[2016-11-16] MEDS ORDERED: ROCURONIUM 50 MG/5 ML (ZEMURON) VIAL IV ONE (07:09)
[2016-11-16] MEDS ORDERED: cefTRIAXone 1 GM/NS 50 ML IVPB IV ONE ×2 (07:15)
[2016-11-16] MEDS ORDERED: GLYCOPYRROLATE 0.2 MG/ML (ROBINUL) 2 ML VIAL ONE (07:38)
[2016-11-16] MEDS ORDERED: NEOSTIGMINE (BLOXIVERZ ) 1 MG/1ML 10 ML VIAL ONE (07:38)
[2016-11-16] MEDS ORDERED: morphine INJ 10 MG/ML 1ML (SYR OR VIAL) IVP PRN (08:15)
[2016-11-16] MEDS ORDERED: MEPERIDINE (DEMEROL) INJ 50 MG/ML IVP PRN (08:15)
[2016-11-16] MEDS ORDERED: ONDANSETRON 4 MG/2 ML (SDV) Z0FRAN IVP PRN (08:15)
[2016-11-16] MEDS ORDERED: morphine INJ 10 MG/ML 1ML (SYR OR VIAL) ONE (08:17)
[2016-11-16] MEDS ORDERED: PHEN-640 PO (08:43)
[2016-11-16] MEDS ORDERED: NITR-68 PO (08:43)
[2016-11-16 09:05] VITALS: BP 157/72
[2016-11-16] MEDS ORDERED: KETOROLAC 30 MG/ML VIAL IVP ONE (09:30)
[2016-11-16 09:35] VITALS: BP 153/63
[2016-11-16 10:05] VITALS: BP 137/55
[2016-11-16 11:05] VITALS: BP 141/60
[2016-11-16 12:20] VITALS: BP 145/84
--- NOTE | 2016-11-16 12:51 | OPERATIVE REPORT ---
PROCEDURE PHYSICIAN: MUNIR ROCHE DATE OF PROCEDURE: 11/16/2016 PREOPERATIVE DIAGNOSIS: Bladder tumor. POSTOPERATIVE DIAGNOSIS: Bladder tumor. OPERATION PERFORMED: Transurethral resection of bladder tumor. SURGEON: Lula. ANESTHESIA: General. COMPLICATIONS: None. PROCEDURE: Under satisfactory general anesthesia, the patient in lithotomy position, the genitalia were prepped and draped in usual sterile fashion. Cystoscope was introduced in the bladder. The area and that was visualized at the office to be medium to large in the right posterior wall was much improved and much smaller, hopefully indicated above just inflammatory changes and no active cancer. I went ahead and resected all the abnormal areas incorporating deeper cuts. Bleeders were cauterized and hemostasis was complete. There was no need for catheter. The rest of the bladder looked healthy and normal. The bladder was evacuated and resectoscope was removed. The patient tolerated the procedure and anesthesia well and was sent to recovery room in stable condition. Job ID: [id number] Dictated Date: 11/16/2016 07:59:24 Green Marketer Date: 11/16/2016 12:48:07 / [email or web address]
[2016-11-17] MEDS ORDERED: EST30C VG (09:22)
[2016-11-17] MEDS ORDERED: DIPH1TAB PO (09:22)
[2016-11-17] MEDS ORDERED: CANA100T PO (09:22)
[2016-11-17] MEDS ORDERED: PHEN-640 PO (09:22)
[2016-11-17] MEDS ORDERED: NITR-65 PO (09:22)
[2016-11-17] MEDS ORDERED: LACT1CAP62 PO (09:32)
[2016-11-17] MEDS ORDERED: FAMO-119 PO (09:32)
[2016-11-17] MEDS ORDERED: INSU100V16 SQ (09:38)
== END 2016-11-16 12:30 | disposition home or self-care (01) ==
LOC: SDC 05:58
PROVIDERS: ATTEND Urology
DX: D49.4 Neoplasm of unspecified behavior of bladder (principal); E11.9 Type 2 diabetes mellitus without complications; Z11.2 Encounter for screening for other bacterial diseases
CPT/HCPCS: 82962; 87081; 93005

== ENCOUNTER 2016-11-16 16:54 | Observation (INO) | payer MEDICARE, OTHER ==
[~2016-11-16] VITALS: Ht 162.6 cm; Wt 67.4 kg
[~2016-11-16 16:54] MED LIST changes: +NITR-68 PO; +PHEN-640 PO
--- OUTSIDE RECORDS SUMMARY | 2016-11-16 17:00 | XMS REPORT | Continuity of Care Document ---
Author Author [facility] Organization [facility] Address Unknown Phone Unavailable Care Team Providers Care Relationship Counselor Name Role Phone ALLISON GLORIA MD PCP Insurance Providers Payer Name Policy Number Subscriber Name Relationship Wps Medicare [id number] Mary Johnson A 18 Self / Same As Patient [place] [employer] [id number] Mary Johnson A 18 Self / Same As Patient Advance Directives Directive Response Recorded Date/Time Advance Directives No 11/15/16 12:32pm Health Care Power of Network Specialist No 11/15/16 12:32pm Organ Donor No 11/15/16 [...] Reaction Status Last Updated Sulfa (Sulfonamide Antibiotics) ([id number]) Allergy Unknown Active 05/12 ciprofloxacin ([id number]) Allergy Unknown ITCHING Active 09/03/15 metronidazole ([id number]) Allergy Intermediate hives Active 11/07/16 Immunizations No immunization records. Vital Signs Acute Vital Signs Vital Response Date/Time Temperature (Fahrenheit) 98.4 degrees F (97.6 - 99.5) 11/07/2016 5:26pm Temperature (Calculated Celsius) 36.97478 degrees C (36.4 - 37.5) 11/07/2016 5:26pm [...] 4.00 inches 11/15/2016 12:30pm Height (Calculated Centimeters) 162.943856 cm 11/15/2016 12:30pm Weight (Pounds) 140 pounds 11/15/2016 12:30pm Weight (Ounces) 9.6 oz 11/15/2016 12:30pm Weight (Calculated Grams) 64440.09 gm 11/15/2016 12:30pm Weight (Calculated Kilograms) 63.529429 kilograms 11/15/2016 12:30pm Calculated BMI 24.1 11/15/2016 [...] Discharge/Depart Date Attending Provider Registered Clinic [facility] 11/15/16 12:40pm MUNIR ROCHE MD Departed Emergency Room [facility] 11/07/16 1:01pm 11/07 5:26pm NATHAN BAUGH Departed Emergency Room [facility] 10/28/16 10:56am 12:25pm LOPEZ KEE APRN Registered Recurring [facility] 10/28/16 9:43am JOYCE MONAE APRN Departed Emergency Room [facility] 10/27/16 11:12am 2:53pm GRIFFIN FAYE Departed Surgical Day Care [facility] 10/17/16 9:52am 1:20pm DIANE PORTILLO MD
--- NOTE | 2016-11-16 17:47 | ED GU-Female ---
General Chief Complaint: -Female Stated Complaint: UNABLE TO URINATE Nursing Triage Note: pt had bladder surgery this a.m. pt reports she did not urinate after surgery et hasn't been able to since. c/o severe bladder pain. Nursing Sepsis Screen: No Definite Risk Source: patient Exam Limitations: no limitations History of Present Illness Time seen by provider: 17:37 Initial Comments Here with increasing abdominal pain since bladder surgery earlier today. States that she has not been able to urinate. Requesting in and out catheter per instructions from Dr. Cotton. States that she usually has urinary retention after general anesthesia and she had general anesthesia today. Denies fever or chills. Denies nausea or vomiting. Timing/Duration: this morning Severity/Quality: moderate, severe Location: suprapubic Radiation: other (generalized abdomen) Activities at Onset: none Modifying Factors: Worsens With Breathing, Worsens With Movement Associated Symptoms: abdominal painNo nausea/vomiting Allergies and Home Medications Allergies Coded Allergies: metronidazole (Verified Allergy, Intermediate, hives, 11/07/16) Sulfa (Sulfonamide Antibiotics) (Unverified Allergy, Unknown, 08/05/14) ciprofloxacin (Verified Allergy, Unknown, ITCHING, 09/03/15) Home Medications 3 UNITS SQ BID (Reported) Acetaminophen 500 Mg Tablet 1,000 MG PO Q6H PRN PRN PAIN (Reported) TAKES 2 (500MG) TABLETS Atorvastatin Calcium 40 Mg Tablet 40 MG PO DAILY (Reported) Bifidobacter. Bifidum/B.longum 460 Mg Capsule 460 MG PO DAILY (Reported) Cholecalciferol (Vitamin D3) 2,000 Unit Capsule 2,000 UNIT PO DAILY (Reported) Docusate Sodium 100 Mg Capsule 100 MG PO BID (Reported) Famotidine 20 Mg Tablet #20 20 MG PO BID Prescribed by: NATHAN BAUGH on 11/07/16 1551 Melatonin 3 Mg Tab.rapdis 12 MG PO HS PRN PRN INSOMNIA (Reported) TAKES 4 (3MG) TABLETS Nitrofurantoin Macrocrystal 100 Mg Capsule 7Days 100 MG PO BID Prescribed by: GINGER MCKEE on 11/16/16 0843 Pantoprazole Sodium 40 Mg Tablet.dr 40 MG PO DAILY (Reported) Phenazopyridine HCl 200 Mg Tablet #15 1 TAB PO TID Prescribed by: GINGER MCKEE on 11/16/16 0843 Temazepam 30 Mg Capsule 30 MG PO HS PRN PRN SLEEP (Reported) Tramadol HCl 50 Mg Tablet 50 MG PO BID PRN PRN PAIN (Reported) Constitutional: see HPINo chills, No fever Respiratory: no symptoms reported Cardiovascular: no symptoms reported Gastrointestinal: abdominal painNo nausea, No vomiting Genitourinary: denies pain, other (retention) : No Musculoskeletal: no symptoms reported Skin: no symptoms reported All Other Systemes Reviewed Negative Unless Noted: Yes Past Iuwgzjg-Jwixjc-Hzwqmv Hx Patient Social History Alcohol Use: Denies Use Recreational Drug Use: No Smoking Status: Never a Smoker Former Smoker/When Quit: Oct 30, 1999 Recent Foreign Travel: No Contact w/Someone Who Travel: No Recent Infectious Disease Expo: No Immunizations Up To Date Tetanus Booster (TDap): Unknown PED Vaccines UTD: No Date of Pneumonia Vaccine: May 17, 2016 Date of Influenza Vaccine: Aug 17, 2016 Seasonal Allergies Seasonal Allergies: No Surgeries HX Surgeries: Yes (BACK, HAD TO HAVE 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) Surgeries: Appendectomy, Gallbladder, Hysterectomy Respiratory Hx Respiratory Disorders: Yes (IS TO HAVE A SLEEP STUDY) Respiratory Disorders: Pneumonia Cardiovascular Hx Cardiac Disorders: Yes (STENTS, 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) Neurological Hx Neurological Disorders: No Reproductive System Hx Reproductive Disorders: Yes Sexually Transmitted Disease: No HIV/AIDS: No Female Reproductive Disorders: Denies Genitourinary Hx Genitourinary Disorders: Yes Genitourinary Disorders: Bladder Infection Gastrointestinal Hx Gastrointestinal Disorders: Yes Gastrointestinal Disorders: Gastroesophageal Reflux, Chronic Constipation, Diverticulosis, Hemorrhoids, Polyps Musculoskeletal Hx Musculoskeletal Disorders: Yes Musculoskeletal Disorders: Arthritis, Chronic Back Pain Endocrine Hx Endocrine Disorders: Yes Endocrine Disorders: Diabetes, Non-Insulin dep HEENT HX ENT Disorders: Yes (GLASSES) Loss of Vision: Bilateral Hearing Impairment: Denies Cancer Hx Cancer: No Psychosocial Hx Psychiatric Problems: No (IN THE PAST) Behavioral Health Disorders: Depression Integumentary HX Skin/Integumentary Disorder: Yes (OCCASIONALLY) Skin/Integumentary Disorders: Psoriasis Blood Transfusions Hx Blood Disorders: Yes (ANEMIA-FROM HEMORRHOIDS) Adverse Reaction to a Blood Tr: No (HAS HAD BLOOD TRANSFUSION WITH NO DIFFICULTY) Reviewed Nursing Assessment Reviewed/Agree w Nursing PMH: Yes Family Medical History Significant Family History: No Pertinent Family Hx Family Medial History: Cancer of mouth Diabetes mellitus 19 FATHER Dysphasia G8 SISTER FH: thyroid cancer Myocardial infarction 19 FATHER Physical Exam Vital Signs Vital Sign - Last 12Hours 11/16/16 17:26 Temp 98.2 Pulse 69 Resp 18 B/P 145/62 Pulse Ox 97 O2 Delivery Room Air Capillary Refill : Less Than 3 Seconds General Appearance: WD/WN moderate distress (abdominal pain) HEENT: PERRL/EOMI pharynx normal Neck: full range of motion supple Cardiovascular: regular rate, rhythm no murmur Respiratory: lungs clear normal breath sounds Gastrointestinal: soft distendedNo guarding, No rebound, tenderness Back: normal inspection no CVA tenderness no vertebral tenderness Extremities: non-tender normal inspection Neurologic/Psychiatric: alert oriented x 3 Skin: normal color warm/dry other (scattered areas of red patches noted to the scalp, neck, upper torso and upper arms bilateral. Patient states these are not itchy.) Progress/Results/Core Measures Results/Orders Lab Results Laboratory Tests Test 11/16/16 18:00 11/16/16 18:14 Range/Units Urine Amorphous Sediment MOD SUSSY URATES H /LPF Urine Bacteria FEW H /HPF Urine Bilirubin NEGATIVE NEGATIVE Urine Casts NONE /LPF Urine Clarity SLIGHTLY CLOUDY Urine Color YELLOW Urine Crystals PRESENT H /LPF Urine Culture Indicated YES Urine Glucose (UA) NEGATIVE NEGATIVE Urine Ketones NEGATIVE NEGATIVE Urine Leukocyte Esterase 2+ H NEGATIVE Urine Mucus NEGATIVE /LPF Urine Nitrite NEGATIVE NEGATIVE Urine Protein 2+ H NEGATIVE Urine RBC 5-10 H /HPF Urine RBC (Auto) 5+ H NEGATIVE Urine Specific [place] 1.010 L 1.016-1.022 Urine Squamous Epithelial Cells 0-2 /HPF Urine Urobilinogen NORMAL NORMAL MG/DL Urine WBC 5-10 H /HPF Urine pH 5 5-9 Alanine Aminotransferase (ALT/SGPT) 44 0-55 U/L Albumin 3.9 3.2-4.5 G/DL Alkaline Phosphatase 93 40-136 U/L Anion Gap 12 5-14 MMOL/L Aspartate Amino Transf (AST/SGOT) 47 H 5-34 U/L BUN/Creatinine Ratio 12 Basophils # (Auto) 0.0 0.0-0.1 10^3/uL Basophils (%) (Auto) 0 0-10 % Blood Urea Nitrogen 15 7-18 MG/DL Calcium Level 9.3 8.5-10.1 MG/DL Carbon Dioxide Level 25 21-32 MMOL/L Chloride Level 100 98-107 MMOL/L Creatinine 1.21 0.60-1.30 MG/DL Eosinophils # (Auto) 0.2 0.0-0.3 10^3/uL Eosinophils (%) (Auto) 2 0-10 % Estimat Glomerular Filtration Rate 43 Glucose Level 135 H 70-105 MG/DL Hematocrit 44 35-52 % Hemoglobin 14.5 11.5-16.0 G/DL Lymphocytes # (Auto) 1.6 1.0-4.0 X 10^3 Lymphocytes (%) (Auto) 12 12-44 % Mean Corpuscular Hemoglobin 31 25-34 PG Mean Corpuscular Hemoglobin Concent 33 32-36 G/DL Mean Corpuscular Volume 93 80-99 FL Mean Platelet Volume 9.0 7.4-10.4 FL Monocytes # (Auto) 0.8 0.0-1.0 X 10^3 Monocytes (%) (Auto) 6 0-12 % Neutrophils # (Auto) 10.5 H 1.8-7.8 X 10^3 Neutrophils (%) (Auto) 80 H 42-75 % Platelet Count 298 130-400 10^3/uL Potassium Level 4.5 3.6-5.0 MMOL/L Red Blood Count 4.69 4.35-5.85 10^6/uL Red Cell Distribution Width 12.9 10.0-14.5 % Sodium Level 137 135-145 MMOL/L Total Bilirubin 0.5 0.1-1.0 MG/DL Total Protein 6.6 6.4-8.2 G/DL White Blood Count 13.1 H 4.3-11.0 10^3/uL My Orders Orders-MALLORY TORRES MD Ua Culture If Indicated (11/16/16 17:46) Cbc With Automated Diff (11/16/16 18:02) Comprehensive Metabolic Panel (11/16/16 18:02) Saline Lock/Iv-Start (11/16/16 18:02) Ct Abdomen/Pelvis W (11/16/16 18:05) Ns Iv 500 Ml (Sodium Chloride 0.9%) (11/16/16 18:06) Iohexol Injection (Omnipaque 350 Mg/Ml 1 (11/16/16 18:15) Ns (Ivpb) (Sodium Chloride 0.9% Ivpb Bag (11/16/16 18:15) Urine Culture (11/16/16 18:00) Fentanyl Injection (Sublimaze Injection (11/16/16 19:14) Ceftriaxone Injection (Rocephin Injectio (11/16/16 19:15) Catheter(Urinary) Insert & Ass 03,15 (11/16/16 19:17) Medications Given in ED Current Medications Medications Dose Ordered Sig/Miri Route Start Time Stop Time Status Last Admin Dose Admin Ceftriaxone Sodium/Sodium Chloride 50 ml @ 100 mls/hr ONCE ONCE IV 11/16/16 19:15 11/16/16 19:44 DC 11/16/16 19:40 100 MLS/HR Iohexol 100 ml ONCE ONCE IV 11/16/16 18:15 11/16/16 18:16 DC 11/16/16 18:49 75 ML Sodium Chloride 500 ml @ 0 mls/hr Q0M ONCE IV 11/16/16 18:06 11/16/16 18:07 DC 11/16/16 19:00 0 MLS/HR Sodium Chloride 100 ml 100 ml ONCE ONCE IV 11/16/16 18:15 11/16/16 18:16 DC 11/16/16 18:49 80 ML Vital Signs/I&O Vital Sign - Last 12Hours 11/16/16 17:26 Temp 98.2 Pulse 69 Resp 18 B/P 145/62 Pulse Ox 97 O2 Delivery Room Air Blood Pressure Mean: 89 Progress Note : Progress Note Seen and evaluated. Straight catheter urine in and out with approximately 400 of yellow urine obtained. UA ordered. I did discuss the case with Dr. Cotton at 1743. He recommended that in and out catheter. 180 every discussed the case with Dr. Cotton. Due to persistent pain, we will get labs and CT abdomen and pelvis with contrast. Normal saline 500 mL bolus ordered. Monitor patient. CT abdomen pelvis results noted. I did discuss this with Dr. Cotton at 1904. Patient and family are uncomfortable with going home. Will admit , observation status. Pain meds as needed. We will give 1 g of Rocephin IV now for bacteria noted in urine. This will be continued per Dr. Cotton as needed. Patient was also noted to have some red splotches and has history of different allergies. Decadron 10 mg IV given. Red splotches noted prior to any administration of medications in the ER. Patient and family agree to admission. Diagnostic Imaging Diagonstic Imaging: CT Plain Films/CT/US/NM/MRI: abdomen, pelvis Comments NAME: BORIS GARCIA [facility] REC#: [id number] PT STATUS: REG ER : 1935 PHYSICIAN: MALLORY TORRES MD ADMIT DATE: 11/16/16/ER Signed Date of Exam: 11/16/16 CT ABDOMEN/PELVIS W PROCEDURE: CT abdomen and pelvis with contrast. TECHNIQUE: Multiple contiguous axial images were obtained through the abdomen and pelvis after administration of intravenous contrast. INDICATION: 81-year-old female presents to the ER with bladder surgery with tumor removal. Patient is now unable to urinate. COMPARISONS: 10/27/2006 FINDINGS: Lung bases are clear. Cardiac contour is normal. Liver shows uniform attenuation. There is grade 3 fatty change. There is no intraparenchymal mass or ductal dilatation. The gallbladder is surgically absent. Spleen and GE junction are normal. The stomach contains food stuff and is mildly distended. There is no significant mucosal thickening. The duodenal sweep is unremarkable. Pancreas shows some fatty replacement but sharp margins. Adrenals are normal. Kidneys show age-appropriate cortical thinning. There is symmetrical perfusion and excretion of contrast. Both ureters are seen through their course with no evidence of hydroureter or ureteral calculus. Partially filled bladder shows some luminal irregularity and stranding along the anterior wall possibly a sequela of the recent surgery. Small amount of extra cystic fluid is seen near the dome of the bladder. This measures approximately 4.8 cm in maximum dimension. There is diffuse stranding in the suprapubic pelvis. This is felt to be sequela of the recent surgery. Nonopacified loops of small bowel appear unremarkable. Few shotty benign-appearing central mesenteric nodes are present. Large bowel contains a large quantity of fecal material throughout its course up to the splenic flexure. The descending colon is unremarkable. Trace amount of free pelvic fluid is seen. Nonaneurysmal calcifications are seen in the aorta extending to the iliac and femoral arteries. There is some calcific atherosclerosis seen at the origin of the celiac artery. The SMA origin is widely patent. There is few calcifications at the origin of both renal arteries. Additional nonemergent findings as described above. IMPRESSION: 1. There is diffuse pelvic fat stranding superior to the dome of the bladder. There is a small fluid collection with a maximum dimension of 4.8 cm which slightly indents the dome of the bladder. The anterior wall of the bladder is irregular and thickened with a small pocket of gas and there is diffuse stranding subjacent to the rectus abdominis. These are felt to be sequela of the recent surgery with bladder tumor removal. The thickening of the anterior bladder wall is felt to be a sequela of the recent surgery. Small pockets of gas are seen adjacent to the anterior wall of the bladder. 2. Trace amount of free pelvic fluid seen. 3. Grade 3 fatty change of the liver 4. Fecal colon with a large quantity of fecal material in the ascending and transverse colon. Additional nonemergent findings as described above. Dictated by: Dictated on workstation # [id number] Dict: 11/16/161911 Trans: 11/16/161934 [facility] [id number] Interpreted by: LINDSAY STARR MD Electronically signed by:LINDSAY STARR MD 11/16/161937 Departure Communication Time/Spoke to Admitting Phy: 19:04 Impression Impression: Primary Impression: Postoperative pain Additional Impression: Urinary retention Disposition: ADMITTED INPATIENT Condition: Stable Decision to Admit Reason: Admit from ER (General) Decision to Admit/Date: Nov 16, 2016 Time/Decision to Admit Time: 19:04 Departure-Patient Inst. Referrals: ALLISON GLORIA MD (PCP/Family) Primary Care Physician MALLORY TORRES MD Nov 16, 2016 17:47
[2016-11-16] MEDS ORDERED: NS IV 500 ML 500 ML IV ONE (18:06)
[2016-11-16 18:13] LABS: BILIRUBIN,URINE NEGATIVE (NEGATIVE); KETONES,URINE NEGATIVE (NEGATIVE); LEUKOCYTE ESTERASE ,URINE 2+ (NEGATIVE); NITRITE,URINE NEGATIVE (NEGATIVE); PH,URINE 5 (5-9); PROTEIN,URINE 2+ (NEGATIVE); UROBILINOGEN,URINE NORMAL (NORMAL)
[2016-11-16] MEDS ORDERED: NS 100 ML (IVPB) BAG IV ONE (18:15)
[2016-11-16] MEDS ORDERED: IOHEXOL 350 MG/ML 100 ML (OMNIPAQUE 350) VIAL IV ONE (18:15)
[2016-11-16 18:21] LABS: BASOPHILS % (AUTO) 0 % (0-10); EOSINOPHILS # (AUTO) 0.2 10^3/uL (0.0-0.3); EOSINOPHILS % (AUTO) 2 % (0-10); LYMPHOCYTES # (AUTO) 1.6 X 10^3 (1.0-4.0); LYMPHOCYTES % (AUTO) 12 % (12-44); MEAN CORPUSCULAR HEMOGLOBIN 31 PG (25-34); MEAN CORPUSCULAR HGB CONC 33 G/DL (32-36); MEAN CORPUSCULAR VOLUME 93 FL (80-99); MONOCYTES # (AUTO) 0.8 X 10^3 (0.0-1.0); MONOCYTES % (AUTO) 6 % (0-12); NEUTROPHILS # (AUTO) 10.5 X 10^3 (1.8-7.8); NEUTROPHILS % (AUTO) 80 % (42-75); PLATELET COUNT 298 10^3/uL (130-400); RED BLOOD COUNT 4.69 10^6/uL (4.35-5.85); RED CELL DISTRIBUTION WIDTH 12.9 % (10.0-14.5); WHITE BLOOD COUNT 13.1 10^3/uL (4.3-11.0)
[2016-11-16 18:40] LABS: POTASSIUM 4.5 MMOL/L (3.6-5.0)
[2016-11-16 18:40] LABS: SQUAMOUS EPITHELIAL CELL,UR 0-2 /HPF
[2016-11-16 18:41] LABS: ALBUMIN 3.9 G/DL (3.2-4.5); BILIRUBIN,TOTAL 0.5 MG/DL (0.1-1.0); CALCIUM 9.3 MG/DL (8.5-10.1); CREATININE SERUM 1.21 MG/DL (0.60-1.30); TOTAL PROTEIN 6.6 G/DL (6.4-8.2)
[2016-11-16] MEDS ORDERED: fentaNYL INJECTION 100 MCG/2 ML AMP IVP STA (19:14)
[2016-11-16] MEDS ORDERED: cefTRIAXone INJECTION 1,000 MG in NORMAL SALINE (BAXTER MINI) 50 ML IV ONE (19:15)
--- NOTE | 2016-11-16 19:27 | Diagnostic Imaging Report ---
PROCEDURE: CT abdomen and pelvis with contrast. TECHNIQUE: Multiple contiguous axial images were obtained through the abdomen and pelvis after administration of intravenous contrast. INDICATION: 81-year-old female presents to the ER with bladder surgery with tumor removal. Patient is now unable to urinate. COMPARISONS: 10/27/2006 FINDINGS: Lung bases are clear. Cardiac contour is normal. Liver shows uniform attenuation. There is grade 3 fatty change. There is no intraparenchymal mass or ductal dilatation. The gallbladder is surgically absent. Spleen and GE junction are normal. The stomach contains food stuff and is mildly distended. There is no significant mucosal thickening. The duodenal sweep is unremarkable. Pancreas shows some fatty replacement but sharp margins. Adrenals are normal. Kidneys show age-appropriate cortical thinning. There is symmetrical perfusion and excretion of contrast. Both ureters are seen through their course with no evidence of hydroureter or ureteral calculus. Partially filled bladder shows some luminal irregularity and stranding along the anterior wall possibly a sequela of the recent surgery. Small amount of extra cystic fluid is seen near the dome of the bladder. This measures approximately 4.8 cm in maximum dimension. There is diffuse stranding in the suprapubic pelvis. This is felt to be sequela of the recent surgery. Nonopacified loops of small bowel appear unremarkable. Few shotty benign-appearing central mesenteric nodes are present. Large bowel contains a large quantity of fecal material throughout its course up to the splenic flexure. The descending colon is unremarkable. Trace amount of free pelvic fluid is seen. Nonaneurysmal calcifications are seen in the aorta extending to the iliac and femoral arteries. There is some calcific atherosclerosis seen at the origin of the celiac artery. The SMA origin is widely patent. There is few calcifications at the origin of both renal arteries. Additional nonemergent findings as described above. IMPRESSION: 1. There is diffuse pelvic fat stranding superior to the dome of the bladder. There is a small fluid collection with a maximum dimension of 4.8 cm which slightly indents the dome of the bladder. The anterior wall of the bladder is irregular and thickened with a small pocket of gas and there is diffuse stranding subjacent to the rectus abdominis. These are felt to be sequela of the recent surgery with bladder tumor removal. The thickening of the anterior bladder wall is felt to be a sequela of the recent surgery. Small pockets of gas are seen adjacent to the anterior wall of the bladder. 2. Trace amount of free pelvic fluid seen. 3. Grade 3 fatty change of the liver 4. Fecal colon with a large quantity of fecal material in the ascending and transverse colon. Additional nonemergent findings as described above. Dictated by: Dictated on workstation # [id number]
[2016-11-16] MEDS ORDERED: DEXAMETHASONE PF 10 MG/ML (DECADRON) VIAL IV STA (19:57)
[2016-11-16 20:50] VITALS: BP 139/72
[2016-11-16] MEDS ORDERED: fentaNYL INJECTION 100 MCG/2 ML AMP IV PRN (21:30)
[2016-11-16] MEDS ORDERED: NS IV 1000 ML 1,000 ML IV SCH (21:30)
[2016-11-16] MEDS ORDERED: RT-ALBUTEROL/IPRATROPIUM 3 ML (DUONEB) VIAL INH PRN (23:30)
[2016-11-17] VITALS: BP 144/72
[2016-11-17 04:00] VITALS: BP 144/90
[2016-11-17] MEDS: inSUlin (REGULAR) HUMAN 1 UNIT/0.01 ML (CHARGE PER UNIT) SC SCH ×5 (06:00→21:59)
[2016-11-17 06:09] LABS: BASOPHILS % (AUTO) 0 % (0-10); EOSINOPHILS % (AUTO) 0 % (0-10); LYMPHOCYTES # (AUTO) 1.1 X 10^3 (1.0-4.0); LYMPHOCYTES % (AUTO) 10 % (12-44); MEAN CORPUSCULAR HEMOGLOBIN 31 PG (25-34); MEAN CORPUSCULAR HGB CONC 33 G/DL (32-36); MEAN CORPUSCULAR VOLUME 92 FL (80-99); MEAN PLATELET VOLUME 9.7 FL (7.4-10.4); MONOCYTES # (AUTO) 0.1 X 10^3 (0.0-1.0); MONOCYTES % (AUTO) 1 % (0-12); NEUTROPHILS # (AUTO) 9.7 X 10^3 (1.8-7.8); NEUTROPHILS % (AUTO) 90 % (42-75); PLATELET COUNT 275 10^3/uL (130-400); RED BLOOD COUNT 4.27 10^6/uL (4.35-5.85); RED CELL DISTRIBUTION WIDTH 12.6 % (10.0-14.5); WHITE BLOOD COUNT 10.9 10^3/uL (4.3-11.0)
[2016-11-17 06:37] LABS: ALBUMIN 3.4 G/DL (3.2-4.5); BILIRUBIN,TOTAL 0.3 MG/DL (0.1-1.0); CALCIUM 8.9 MG/DL (8.5-10.1); CREATININE SERUM 1.12 MG/DL (0.60-1.30); POTASSIUM 4.3 MMOL/L (3.6-5.0); TOTAL PROTEIN 5.8 G/DL (6.4-8.2)
[2016-11-17 08:00] VITALS: BP 164/70
[2016-11-17] MEDS ORDERED: CATHETER FLUSH 10 ML SYR IV PRN (08:00)
[2016-11-17] MEDS ORDERED: CANA100T PO (09:22)
[2016-11-17] MEDS ORDERED: DIPH1TAB PO (09:22)
[2016-11-17] MEDS ORDERED: EST30C VG (09:22)
[2016-11-17] MEDS ORDERED: PHEN-640 PO (09:22)
[2016-11-17] MEDS ORDERED: NITR-65 PO (09:22)
[2016-11-17] MEDS ORDERED: FAMO-119 PO (09:32)
[2016-11-17] MEDS ORDERED: LACT1CAP62 PO (09:32)
[2016-11-17] MEDS ORDERED: INSU100V16 SQ (09:38)
--- NOTE | 2016-11-17 10:50 | HISTORY AND PHYSICAL ---
Violet Johnson 17. CHIEF COMPLAINT: Abdominal pain and urinary retention. PRESENT HISTORY: 81-year-old white lady who underwent an uneventful transurethral resection of bladder tumor the morning of her admission. She called my office complaining of inability to void which is usual for after general anesthetic, and some abdominal pain and discomfort. She presented to the emergency room. I asked Dr. Carvajal to straight catheter her and they recovered 400 mL of clear june urine. She continues to have some pelvic discomfort, especially over the suprapubic area. We will obtain a CT scan of the abdomen and pelvis and I do not see any intrapericardial extravasation except some reactive fluid and stranding around the area of resection, which is expected after this kind of surgeries. She looks good. She has no complaints besides some tenderness in the suprapubic area. ABDOMEN: Soft a very mild tenderness on deep palpation and suprapubic area. No rebound. The rest of the physical exam and history unchanged from the preoperative history and physical. IMPRESSION: Urinary retention and abdominal pain after a transurethral resection of the bladder tumor. PLAN: To keep her comfortable and leave the Griffith catheter in. Just in case. Keep her n.p.o. after midnight and we will recheck again in the morning. We will probably leave the catheter for a few days and then remove it maybe in 4 or 5 days. The plan was fully explained to the patient. Job ID: [id number] Dictated Date: 11/16/2016 22:07:00 Synoptic Meteorologist Date: 11/17/2016 10:45:33/abhijeet
--- NOTE | 2016-11-17 11:48 | Progress Note-Urology ---
Progress Note-Urology Progress Notes/Assess & Plan Progress/Assessment & Plan Feeling, looking and doing much better. Abdomen soft much less tender. Urine clear. Observe one more day. Final Diagnosis Abdominal pain. MUNIR ROCHE MD Nov 17, 2016 11:48 am
[2016-11-17] MEDS ORDERED: cefTRIAXone INJECTION 1,000 MG in NORMAL SALINE (BAXTER MINI) 50 ML IV NR (12:00)
[2016-11-17] MEDS ORDERED: ACETAMINOPHEN 500 MG TAB (TYLENOL) ONE (12:13)
[2016-11-17 13:00] VITALS: BP 149/66
[2016-11-17 16:00] VITALS: BP 153/69
[2016-11-17 19:22] VITALS: BP 152/75
[2016-11-18] VITALS: BP 133/66
[2016-11-18 04:00] VITALS: BP 108/71
[2016-11-18] MEDS: inSUlin (REGULAR) HUMAN 1 UNIT/0.01 ML (CHARGE PER UNIT) SC SCH ×2 (05:50→09:30)
[2016-11-18 08:00] VITALS: BP 165/78
--- NOTE | 2016-11-18 09:43 | Progress Note-Urology ---
Progress Note-Urology Progress Notes/Assess & Plan Progress/Assessment & Plan doing great, home with instructions, path no cancer Final Diagnosis abdominal pain MUNIR ROCHE MD Nov 18, 2016 9:43 am
--- NOTE | 2016-11-18 09:45 | Discharge Inst-Urology ---
Discharge Inst-Urology Discharge Medications New, Converted, or Re-newed RX: RX given to Patient/Fam Patient Instructions/Follow Up Plan DC on leg bag day time and large bag night time with instructions Office Monday 9am to DC Griffith and keep F/U appointment with me Keep bowels soft and moving Increase oral fluids for 48 hours and then as needed. Diet and Activity as tolerated. If questions or concerns contact your physician Or seek help at emergency department. MUNIR ROCHE MD Nov 18, 2016 9:45 am
[2016-11-18 10:25] VITALS: BP 165/78
== END 2016-11-18 09:43 | disposition home or self-care (01) ==
LOC: EDUNIT# 16:54 → ER 16:55 → 4TH 20:06 → UNDOADMOB 20:06 → 4TH 20:45 → UNDODISOB 11-18 09:43
PROVIDERS: ADMIT Urology; ATTEND Urology
DX: R33.9 Retention of urine, unspecified (principal)
CPT/HCPCS: 36415; 51701; 51702; 74177; 80053; 81000; 82962; 85025; 87081; 87088; 93005; 96361; 96365; 96375; G0378

== ENCOUNTER 2016-11-28 14:37 | Outpatient (RCR) | payer MEDICARE, OTHER ==
[~2016-11-28 14:37] MED LIST changes: -CHLO473M4 MM; -HYDR-3816 PO; -HYDR-757 PO; -PANT40TA3
== END 2017-01-26 | disposition home or self-care (01) ==
LOC: LAB 14:37
PROVIDERS: ATTEND Nurse Practitioner Family
DX: R19.7 Diarrhea, unspecified (principal); R11.10 Vomiting, unspecified
CPT/HCPCS: 36415; 84436; 84443

== ENCOUNTER → 2016-11-28 | Outpatient (CLI) | payer MEDICARE, OTHER ==
[~2016-11-28] MED LIST changes: +CHLO473M4 MM; +DIPH1TAB PO; +EST30C VG; +HYDR-3816 PO; +HYDR-757 PO; +INSU100V16 SQ; +LACT1CAP62 PO; +NITR-65 PO; +PANT40TA3
--- OUTSIDE RECORDS SUMMARY | 2016-11-28 14:30 | XMS REPORT | Continuity of Care Document ---
Author Author [facility] Organization [facility] Address Unknown Phone Unavailable Care Team Providers Care Manager Rental Name Role Phone ALLISON GLORIA MD PCP Insurance Providers Payer Name Policy Number Subscriber Name Relationship W[employer] [id number] Mary Johnson A 18 Self / Same As Patient [employer] [id number] Mary Johnson A 18 Self / Same As Patient Advance Directives Directive Response Recorded Date/Time Advance Directives No 11/15/16 12:32pm Health Care Power of Patient Attendant No 11/15/16 12:32pm Organ Donor No 11/15/16 [...] Reaction Status Last Updated Sulfa (Sulfonamide Antibiotics) ([id number]) Allergy Unknown Active 05/12 ciprofloxacin ([id number]) Allergy Unknown ITCHING Active 09/03/15 metronidazole ([id number]) Allergy Intermediate hives Active 11/07/16 Immunizations No immunization records. Vital Signs Acute Vital Signs Vital Response Date/Time Temperature (Fahrenheit) 98.4 degrees F (97.6 - 99.5) 11/07/2016 5:26pm Temperature (Calculated Celsius) 36.86146 degrees C (36.4 - 37.5) 11/07/2016 5:26pm [...] 4.00 inches 11/15/2016 12:30pm Height (Calculated Centimeters) 162.204784 cm 11/15/2016 12:30pm Weight (Pounds) 140 pounds 11/15/2016 12:30pm Weight (Ounces) 9.6 oz 11/15/2016 12:30pm Weight (Calculated Grams) 17224.09 gm 11/15/2016 12:30pm Weight (Calculated Kilograms) 63.257480 kilograms 11/15/2016 12:30pm Calculated BMI 24.1 11/15/2016 [...] Discharge/Depart Date Attending Provider Registered Clinic [facility] 11/15/16 12:40pm MUNIR ROCHE MD Departed Emergency Room [facility] 11/07/16 1:01pm 11/07 5:26pm NATHAN BAUGH Departed Emergency Room [facility] 10/28/16 10:56am 12:25pm LOPEZ KEE APRN Registered Recurring [facility] 10/28/16 9:43am JOYCE MONAE APRN Departed Emergency Room [facility] 10/27/16 11:12am 2:53pm GRIFFIN FAYE Departed [facility] 10/17/16 9:52am 1:20pm DIANE PORTILLO MD
== END ==
LOC: LAB 14:24
PROVIDERS: ATTEND Family Medicine
DX: E04.0 Nontoxic diffuse goiter (principal)

== ENCOUNTER → 2016-12-05 | Outpatient (CLI) | payer MEDICARE, OTHER ==
[~2016-12-05] MED LIST changes: +CHLO473M4 MM; +HYDR-3816 PO; +HYDR-757 PO; +PANT40TA3
--- OUTSIDE RECORDS SUMMARY | 2016-12-05 13:43 | XMS REPORT | Continuity of Care Document ---
Author Author [facility] Organization [facility] Address Unknown Phone Unavailable Care Team Providers Care Butadiene Convertor Operator Name Role Phone ALLISON GLORIA MD PCP Insurance Providers Payer Name Policy Number Subscriber Name Relationship [employer] [id number] Mary Johnson A 18 Self / Same As Patient [employer] [id number] Mary Johnson A 18 Self / Same As Patient Advance Directives Directive Response Recorded Date/Time Advance Directives No 11/15/16 12:32pm Health Care Power of Mat Worker No 11/15/16 12:32pm Organ Donor No 11/15/16 [...] Reaction Status Last Updated Sulfa (Sulfonamide Antibiotics) ([id number]) Allergy Unknown Active 05/12 ciprofloxacin ([id number]) Allergy Unknown ITCHING Active 09/03/15 metronidazole ([id number]) Allergy Intermediate hives Active 11/07/16 Immunizations No immunization records. Vital Signs Acute Vital Signs Vital Response Date/Time Temperature (Fahrenheit) 98.4 degrees F (97.6 - 99.5) 11/07/2016 5:26pm Temperature (Calculated Celsius) 36.29562 degrees C (36.4 - 37.5) 11/07/2016 5:26pm [...] 4.00 inches 11/15/2016 12:30pm Height (Calculated Centimeters) 162.653190 cm 11/15/2016 12:30pm Weight (Pounds) 140 pounds 11/15/2016 12:30pm Weight (Ounces) 9.6 oz 11/15/2016 12:30pm Weight (Calculated Grams) 82000.09 gm 11/15/2016 12:30pm Weight (Calculated Kilograms) 63.030073 kilograms 11/15/2016 12:30pm Calculated BMI 24.1 11/15/2016 [...] Discharge/Depart Date Attending Provider Registered Clinic [facility] 11/15/16 12:40pm MUNIR ROCHE MD Departed Emergency Room [facility] 11/07/16 1:01pm 11/07 5:26pm NATHAN BAUGH Departed Emergency Room [facility] 10/28/16 10:56am 12:25pm LOPEZ KEE APRN Registered Recurring [facility] 10/28/16 9:43am JOYCE MONAE APRN Departed Emergency Room [facility] 10/27/16 11:12am 2:53pm GRIFFIN FAYE Departed [facility] 10/17/16 9:52am 1:20pm DIANE PORTILLO MD
--- NOTE | 2016-12-05 15:17 | Diagnostic Imaging Report ---
PROCEDURE: US Thyroid. TECHNIQUE: Multiple real-time grayscale images were obtained of the thyroid in various projections. INDICATION: Goiter on physical exam. COMPARISON: None. DISCUSSION: The thyroid gland is borderline enlarged. The right thyroid measures 4.4 x 1.9 x 1.5 cm. The left thyroid measures 4.5 x 1.6 x 2.0 cm. There are multiple bilateral complex, mixed solid and cystic nodules present measuring up to 2 cm on the right and 2.1 cm on the left. Nodules are indeterminate, though given their symmetrical appearance, findings are most consistent with multinodular goiter. No microcalcifications or internal color Doppler blood flow is identified. Recommend one-year sonographic followup. IMPRESSION: 1. Multinodular goiter as described. Dictated by: Dictated on workstation # [id number]
== END ==
LOC: RAD 13:39
PROVIDERS: ATTEND Family Medicine
DX: E04.0 Nontoxic diffuse goiter (principal)
CPT/HCPCS: 76536

== ENCOUNTER 2017-02-22 20:08 | Emergency (ER) | payer MEDICARE, OTHER ==
[~2017-02-22] VITALS: Ht 162.6 cm; Wt 63.5 kg
[~2017-02-22 20:08] MED LIST changes: -CHLO473M4 MM; -HYDR-3816 PO; -HYDR-757 PO; -PANT40TA3
[2017-02-22] MEDS ORDERED: HYDR-3816 PO (21:09)
[2017-02-22] MEDS ORDERED: PANT40TA3 (21:09)
--- NOTE | 2017-02-22 21:26 | ED EENT ---
History of Present Illness General Chief Complaint: Dental Problems/Pain Stated Complaint: LEFT SIDE FACE PAIN Nursing Triage Note: Pt c/o severe jaw pain that radiates into temporal area. Sx started on Monday evening and patient has declined to be seen till now r/t rainy weather. Pt has a cap on posterior lower back molar. Source: patient Exam Limitations: no limitations History of Present Illness Time seen by provider: 21:24 Initial Comments To ER with pain and left side of the face. Is been going on for 3 days now. She has a filling in one of the lower molars. Denies any swelling. Denies any fevers. She is able to chew as long she puts the food on the right side of her mouth. She cannot tell if the pain is from the upper or lower jaw. Timing/Duration: abrupt Severity: moderate Location: mouth, facial, dental Allergies and Home Medications Allergies Coded Allergies: metronidazole (Verified Allergy, Intermediate, hives, 11/07/16) Sulfa (Sulfonamide Antibiotics) (Unverified Allergy, Unknown, 08/05/14) ciprofloxacin (Verified Allergy, Unknown, ITCHING, 09/03/15) Home Medications Acetaminophen 500 Mg Tablet, 1,000 MG PO Q6H PRN for PAIN, (Reported) TAKES 2 (500MG) TABLETS Atorvastatin Calcium 40 Mg Tablet, 40 MG PO DAILY, (Reported) Cholecalciferol (Vitamin D3) 2,000 Unit Capsule, 2,000 UNIT PO BID, (Reported) Diphenoxylate HCl/Atropine 1 Each Tablet, 1 TAB PO QID PRN for DIARRHEA, ( Reported) Docusate Sodium 100 Mg Capsule, 100 MG PO BID, (Reported) Estrogens Conjugated 30 Gm Cr, 0.5 GM VG RAJAN,WE, (Reported) Famotidine 20 Mg Tablet, 20 MG PO BID, (Reported) Hydrocodone/Acetaminophen 1 Each Tablet, 1 EACH PO, (Reported) Insulin Aspart 100 Unit/1 Ml Susp, 3 UNIT SQ BID WITH MEALS, (Reported) TAKES WITH MORNING AND EVENING MEAL Lactobacillus Acidophilus 1 Each Capsule, 1 CAP PO BID, (Reported) Melatonin 3 Mg Tab.rapdis, 6 MG PO HS, (Reported) TAKES 2 (3MG) TABLETS Pantoprazole Sodium 40 Mg Tablet., #90 (Reported) Temazepam 30 Mg Capsule, 30 MG PO HS, (Reported) Review of Systems Constitutional: see HPI, No chills Eyes: No Symptoms Reported Ears: No Symptoms Reported Nose: no symptoms reported Mouth: see HPI, pain, denies swelling Throat: no symptoms reported Respiratory: no symptoms reported Cardiovascular: no symptoms reported Musculoskeletal: no symptoms reported Skin: no symptoms reported Neurological: No Symptoms Reported Past Qokjenb-Lauyok-Cvsnua Hx Patient Social History Alcohol Use: Denies Use Recreational Drug Use: No Type Used: Cigarettes Former Smoker/When Quit: Oct 30, 1999 2nd Hand Smoke Exposure: No Recent Foreign Travel: No Contact w/Someone Who Travel: No Recent Infectious Disease Expo: No Immunizations Up To Date Tetanus Booster (TDap): Unknown PED Vaccines UTD: No Date of Pneumonia Vaccine: May 17, 2016 Date of Influenza Vaccine: Aug 17, 2016 Seasonal Allergies Seasonal Allergies: No Surgeries HX Surgeries: Yes (BACK, HAD TO HAVE 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) Surgeries: Appendectomy, Bladder Surgery, Gallbladder, Hysterectomy Respiratory Hx Respiratory Disorders: Yes (IS TO HAVE A SLEEP STUDY) Respiratory Disorders: Pneumonia Cardiovascular Hx Cardiac Disorders: Yes (STENTS, 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) Neurological Hx Neurological Disorders: No Reproductive System Hx Reproductive Disorders: Yes Sexually Transmitted Disease: No HIV/AIDS: No Female Reproductive Disorders: Denies Genitourinary Hx Genitourinary Disorders: Yes Genitourinary Disorders: Bladder Infection Gastrointestinal Hx Gastrointestinal Disorders: Yes Gastrointestinal Disorders: Gastroesophageal Reflux, Chronic Constipation, Diverticulosis, Hemorrhoids, Polyps Musculoskeletal Hx Musculoskeletal Disorders: Yes Musculoskeletal Disorders: Arthritis, Chronic Back Pain Endocrine Hx Endocrine Disorders: Yes Endocrine Disorders: Diabetes, Non-Insulin dep HEENT HX ENT Disorders: Yes (GLASSES) Loss of Vision: Bilateral Hearing Impairment: Denies Cancer Hx Cancer: No Psychosocial Hx Psychiatric Problems: No (IN THE PAST) Behavioral Health Disorders: Depression Integumentary HX Skin/Integumentary Disorder: Yes (OCCASIONALLY) Skin/Integumentary Disorders: Psoriasis Blood Transfusions Hx Blood Disorders: Yes (ANEMIA-FROM HEMORRHOIDS) Adverse Reaction to a Blood Tr: No (HAS HAD BLOOD TRANSFUSION WITH NO DIFFICULTY) Family Medical History Significant Family History: No Pertinent Family Hx Family Medial History: Cancer of mouth Diabetes mellitus 19 FATHER Dysphasia G8 SISTER FH: thyroid cancer Myocardial infarction 19 FATHER Physical Exam Vital Signs Vital Sign - Last 12Hours 02/22/17 20:43 Temp 98.9 Pulse 82 Resp 20 B/P (MAP) 185/97 Pulse Ox 96 O2 Delivery Room Air General Appearance: WD/WN, no apparent distress Eyes: bilateral eye EOMI, bilateral eye PERRL, bilateral eye normal inspection Ears: bilateral ear TM normal, bilateral ear auricle normal, bilateral ear canal normal, bilateral ear other (left external ear canal and tympanic membrane appears normal. There is no mastoiditis. There is no tenderness to palpation over the temporal artery) Mouth/Throat: normal mouth inspection, pharynx normal Neck: non-tender, full range of motion Respiratory: no respiratory distress, no accessory muscle use Gastrointestinal: non tender, soft Neurologic/Psychiatric: alert, normal mood/affect, oriented x 3 Skin: normal color, warm/dry No fluctuant dental abscess Progress/Results/Core Measures Results/Orders Lab Results Laboratory Tests Test 02/22/17 21:10 Range/Units White Blood Count 10.6 4.3-11.0 10^3/uL Red Blood Count 4.55 4.35-5.85 10^6/uL Hemoglobin 13.3 11.5-16.0 G/DL Hematocrit 40 35-52 % Mean Corpuscular Volume 89 80-99 FL Mean Corpuscular Hemoglobin 29 25-34 PG Mean Corpuscular Hemoglobin Concent 33 32-36 G/DL Red Cell Distribution Width 13.2 10.0-14.5 % Platelet Count 294 130-400 10^3/uL Mean Platelet Volume 9.3 7.4-10.4 FL Neutrophils (%) (Auto) 63 42-75 % Lymphocytes (%) (Auto) 27 12-44 % Monocytes (%) (Auto) 7 0-12 % Eosinophils (%) (Auto) 3 0-10 % Basophils (%) (Auto) 0 0-10 % Neutrophils # (Auto) 6.7 1.8-7.8 X 10^3 Lymphocytes # (Auto) 2.8 1.0-4.0 X 10^3 Monocytes # (Auto) 0.7 0.0-1.0 X 10^3 Eosinophils # (Auto) 0.3 0.0-0.3 10^3/uL Basophils # (Auto) 0.0 0.0-0.1 10^3/uL Erythrocyte Sedimentation Rate 10 0-30 MM/HR Sodium Level 140 135-145 MMOL/L Potassium Level 4.0 3.6-5.0 MMOL/L Chloride Level 106 98-107 MMOL/L Carbon Dioxide Level 22 21-32 MMOL/L Anion Gap 12 5-14 MMOL/L Blood Urea Nitrogen 16 7-18 MG/DL Creatinine 1.13 0.60-1.30 MG/DL Estimat Glomerular Filtration Rate 46 BUN/Creatinine Ratio 14 Glucose Level 160 H 70-105 MG/DL Calcium Level 10.0 8.5-10.1 MG/DL My Orders Orders - LOPEZ KEE APRN Saline Lock/Iv-Start (02/22/17 21:19) Cbc With Automated Diff (02/22/17 21:19) Basic Metabolic Panel (02/22/17 21:19) Ct Maxillofacial W (02/22/17 21:19) Erythrocyte Sedimentation Rate (02/22/17 21:19) Ns Iv 500 Ml (Sodium Chloride 0.9%) (02/22/17 21:45) Iohexol Injection (Omnipaque 350 Mg/Ml 1 (02/22/17 22:00) Ns (Ivpb) (Sodium Chloride 0.9% Ivpb Bag (02/22/17 22:00) Ketorolac Injection (Toradol Injection) (02/22/17 22:00) Vital Signs/I&O Vital Sign - Last 12Hours 02/22/17 20:43 Temp 98.9 Pulse 82 Resp 20 B/P (MAP) 185/97 Pulse Ox 96 O2 Delivery Room Air Blood Pressure Mean: 126 Departure Communication Progress Notes 4-given the patient's recurrent Clostridium difficile infections and absence of any palpable infection I will withhold antibiotics pending CT report. We'll refer her to her dentist, Dr. Brady. Impression Impression: Primary Impression: Pain, dental Additional Impression: Dental caries Disposition: HOME, SELF-CARE Condition: Stable Departure-Patient Inst. Decision time for Depature: 22:05 Referrals: ALLISON GLORIA MD (PCP/Family) Primary Care Physician Add. Discharge Instructions: 1. Follow-up with your dentist. Call tomorrow to make an appointment 2. Return to ER for any swelling or fevers 3. All discharge instructions reviewed with patient and/or family. Voiced understanding. Scripts Hydrocodone/Acetaminophen (Ames 5-325 Tablet) 1 Each Tablet 1 EACH PO Q4H Y for PAIN-MODERATE TO SEVERE, #10 TAB Prov: LOPEZ KEE APRN 02/22/17 Chlorhexidine Gluconate (Peridex) 473 Ml Mouthwash 30 ML MM BID, #473 ML Prov: LOPEZ KEE APRN 02/22/17 Images Mouth/Nose 1 - Tenderness LOPEZ KEE APRN Feb 22, 2017 21:26
[2017-02-22 21:29] LABS: BASOPHILS % (AUTO) 0 % (0-10); EOSINOPHILS # (AUTO) 0.3 10^3/uL (0.0-0.3); EOSINOPHILS % (AUTO) 3 % (0-10); LYMPHOCYTES # (AUTO) 2.8 X 10^3 (1.0-4.0); LYMPHOCYTES % (AUTO) 27 % (12-44); MEAN CORPUSCULAR HEMOGLOBIN 29 PG (25-34); MEAN CORPUSCULAR HGB CONC 33 G/DL (32-36); MEAN CORPUSCULAR VOLUME 89 FL (80-99); MEAN PLATELET VOLUME 9.3 FL (7.4-10.4); MONOCYTES # (AUTO) 0.7 X 10^3 (0.0-1.0); MONOCYTES % (AUTO) 7 % (0-12); NEUTROPHILS # (AUTO) 6.7 X 10^3 (1.8-7.8); NEUTROPHILS % (AUTO) 63 % (42-75); PLATELET COUNT 294 10^3/uL (130-400); RED BLOOD COUNT 4.55 10^6/uL (4.35-5.85); RED CELL DISTRIBUTION WIDTH 13.2 % (10.0-14.5); WHITE BLOOD COUNT 10.6 10^3/uL (4.3-11.0)
[2017-02-22 21:44] LABS: CREATININE SERUM 1.13 MG/DL (0.60-1.30)
[2017-02-22] MEDS ORDERED: NS IV 500 ML 500 ML IV SCH (21:45)
[2017-02-22 21:47] LABS: ERYTHROCYTE SEDIMENTATION RATE 10 MM/HR (0-30)
[2017-02-22] MEDS ORDERED: IOHEXOL 350 MG/ML 100 ML (OMNIPAQUE 350) VIAL IV ONE (22:00)
[2017-02-22] MEDS ORDERED: NS 100 ML (IVPB) BAG IV ONE (22:00)
[2017-02-22] MEDS ORDERED: KETOROLAC 30 MG/ML VIAL IVP ONE (22:00)
[2017-02-22] MEDS ORDERED: CHLO473M4 MM (22:06)
[2017-02-22] MEDS ORDERED: HYDR-757 PO (22:06)
[2017-02-22] MEDS ORDERED: RX-HYDROCODONE/APAP 5/325 MG #4 TAB PK PO PRN (22:15)
[2017-02-22 23:30] VITALS: BP 170/73
--- NOTE | 2017-02-23 06:03 | Diagnostic Imaging Report ---
Clinical indication: Patient with left-sided face pain x2 days. No history of surgery. EXAM: Axial maxillofacial CT scan performed with 40 cc of Omnipaque 350 IV contrast with coronal reformations. COMPARISON: None. FINDINGS: There is no abnormal IV contrast enhancement seen on this exam. PARANASAL SINUSES: FRONTAL: There is minimal mucosal thickening in the frontal recess region. ETHMOID: Unremarkable. MAXILLARY: There is small amount of mucosal thickening on the floor of the right maxillary sinus and minimal mucosal thickening on the floor of the left maxillary sinus. SPHENOID: Unremarkable. OTHER PARANASAL SINUS FINDINGS: The ostiomeatal unit regions are patent bilaterally. NASAL SEPTUM: There is roughly 4 mm leftward nasal septal deviation. VISUALIZED TEMPORAL BONE STRUCTURES: Unremarkable. BONY STRUCTURES: There are degenerative changes with subchondral cystic changes and spurring of the left TMJ region. There is chronic calcification also seen adjacent to the left TMJ. There is degenerative spurring of the right TMJ. There is no acute fracture or dislocation of the maxillofacial structures. There is degenerative disease of the cervical spine. EXTRACRANIAL SOFT TISSUE/ ORBITS: Unremarkable. There is atherosclerotic disease of the bilateral cavernous carotid arteries. The visualized intracranial structures show no other significant abnormality. IMPRESSION: 1: Mild paranasal sinus disease. 2: Mild leftward nasal septal deviation. 3: Bilateral TMJ disease. Dictated by: Dictated on workstation # [id number]
== END 2017-02-22 23:30 | disposition home or self-care (01) ==
LOC: EDUNIT# 20:08 → ER 20:10
DX: K08.9 Disorder of teeth and supporting structures, unspecified (principal); K02.9 Dental caries, unspecified; E11.9 Type 2 diabetes mellitus without complications; Z79.4 Long term (current) use of insulin
CPT/HCPCS: 36415; 70487; 80048; 85025; 85652; 96374

== ENCOUNTER 2017-03-17 05:50 | Outpatient (CLI) | payer MEDICARE, OTHER ==
[~2017-03-17] VITALS: Ht 162.6 cm; Wt 63.8 kg
[~2017-03-17 05:50] MED LIST changes: +CHLO473M4 MM; +HYDR-3816 PO; +HYDR-757 PO; +PANT40TA3
[2017-03-17] MEDS ORDERED: TRAM50TA2 PO (11:25)
== END 2017-03-17 11:28 ==
LOC: PREOP 05:50
PROVIDERS: ATTEND Surgery
DX: Z01.818 Encounter for other preprocedural examination (principal); K25.9 Gastric ulcer, unspecified as acute or chronic, without hemorrhage or perforation

== ENCOUNTER 2017-03-20 08:41 | Day surgery (SDC) | payer MEDICARE, OTHER ==
[~2017-03-20] VITALS: Ht 162.6 cm; Wt 63.8 kg
[2017-03-20] MEDS ORDERED: NS IV 500 ML 500 ML IV PRN ×2 (08:50→09:00)
[2017-03-20] MEDS ORDERED: FLUMAZENIL (ROMAZICON) 0.1 MG/ML 5 ML VIAL INJ PRN ×2 (09:00→12:15)
[2017-03-20] MEDS ORDERED: HURRICAINE EXT TUBE (BENZOCAINE) XX PRN (09:00)
[2017-03-20] MEDS ORDERED: NALOXONE 0.4 MG/ML 1 ML (NARCAN) VIAL IVP PRN ×2 (09:00→12:15)
[2017-03-20] MEDS ORDERED: NS IV 500 ML 500 ML ONE (09:06)
[2017-03-20 09:18] VITALS: BP 146/70
--- NOTE | 2017-03-20 09:54 | Conscious Sedation/ASA ---
Conscious Sedation Pre-Proced Time Reviewed: 08:59 ASA Class: 2 Airway Mallampati Classification: (brevig mission appropriate class) I. II. III, IV Lungs Heart ASA score ASA 1: a normal healthy patient ASA 2: a patient with a mild systemic disease (mid diabetes, controlled hypertension, obesity ASA 3: a patient with a severe systemic disease that limits activity (angina , COPD, prior Myocardial infarction) ASA 4: a patient with an incapacitating disease that is a constant threat to life (CHF, renal failure) ASA 5: a moribund patient not expected to survive 24 hrs. (ruptured aneurysm) ASA 6: a declared brain patient whose organs are being harvested. For emergent operations, add the letter E after the classification Grade 2 Sedation Plan: Discussed options with patient/fam Note The patient is an appropriate candidate to undergo the planned procedure, sedation, and anesthesia. The patient immediately re-assessed prior to indication. DIANE PORTILLO MD March 20, 2017 9:53 am
--- NOTE | 2017-03-20 10:13 | Conscious Sedation/ASA ---
Conscious Sedation Pre-Proced Time Reviewed: 08:59 ASA Class: 2 Airway Mallampati Classification: (chitina appropriate class) I. II. III, IV Lungs Heart ASA score ASA 1: a normal healthy patient ASA 2: a patient with a mild systemic disease (mid diabetes, controlled hypertension, obesity ASA 3: a patient with a severe systemic disease that limits activity (angina , COPD, prior Myocardial infarction) ASA 4: a patient with an incapacitating disease that is a constant threat to life (CHF, renal failure) ASA 5: a moribund patient not expected to survive 24 hrs. (ruptured aneurysm) ASA 6: a declared brain patient whose organs are being harvested. For emergent operations, add the letter E after the classification Grade 2 Sedation Plan: Discussed options with patient/fam Note The patient is an appropriate candidate to undergo the planned procedure, sedation, and anesthesia. The patient immediately re-assessed prior to indication. DIANE PORTILLO MD March 20, 2017 10:12 am
[2017-03-20] MEDS ORDERED: MIDAZOLAM 2 MG/2 ML (VERSED) VIAL ONE ×2 (10:17)
[2017-03-20] MEDS ORDERED: fentaNYL INJECTION 100 MCG/2 ML AMP ONE (10:17)
[2017-03-20] MEDS ORDERED: HURRICAINE EXT TUBE (BENZOCAINE) ONE (10:17)
[2017-03-20] MEDS: MIDAZOLAM 2 MG/2 ML (VERSED) VIAL IVP PRN ×2 (10:25→10:28)
--- NOTE | 2017-03-20 10:34 | Endoscopy Procedure Report ---
Endoscopy Report Date: March 20, 2017 Preoperative Diagnosis: gastric ulcers Study Performed: Upper Endoscopy Procedure Instrument: Endoscope DIANE PORTILLO MD March 20, 2017 10:34 am
--- NOTE | 2017-03-20 10:35 | Discharge Inst-Simple/Standard ---
Discharge Inst-Standard Discharge Medications New, Converted or Re-Newed RX: Other Patient Instructions/Follow Up Plan of Care/Instructions/FU: follow-up when necessary Activity as Tolerated: Yes Discharge Diet: ADA Diet DIANE PORTILLO MD March 20, 2017 10:35 am
[2017-03-20 11:05] VITALS: BP 132/72
--- NOTE | 2017-03-20 11:17 | OPERATIVE REPORT ---
DATE OF SERVICE: 03/20/2017 PROCEDURE: Upper GI endoscope. INDICATIONS FOR PROCEDURE: In 09/2016, this lady was found to have severe esophagitis and multiple gastric ulcers. She returns today for a followup endoscopy, mainly to assess the response to proton pump inhibitors. Informed consent was obtained after reviewing the procedure in detail. DESCRIPTION OF PROCEDURE: She was placed in left lateral decubitus position and her vital signs were monitored. Conscious sedation was achieved using Versed and fentanyl. The flexible gastroscope was then introduced down the esophagus, past the stomach into the proximal duodenum. FINDINGS: ESOPHAGUS: 1. Quite tortuous which is normal anatomic variation. 2. Previously seen esophagitis has much improved. STOMACH: 1. Multiple scars consistent with healing of previous antral ulcers. 2. In addition, 2 shallow erosions were found at the antrum. 3. Duodenum normal. She tolerated the procedure well and was taken back to nursing area in stable condition. IMPRESSION: Previous gastric ulcers and severe esophagitis, marked improvement with therapy. To continue proton pump inhibitors. Job ID: [id number] DocumentID: [id number] Dictated Date: 03/20/2017 10:32:23 Accounting Professional Date: 03/20/2017 11:16:09 Dictated By: DIANE PORTILLO MD MTDD
[2017-03-20 11:35] VITALS: BP 128/76
[2017-03-20 11:50] VITALS: BP 128/76
[2017-03-20] MEDS ORDERED: fentaNYL INJECTION 100 MCG/2 ML AMP IVP PRN (12:15)
== END 2017-03-20 11:50 | disposition home or self-care (01) ==
LOC: ENDO 08:41
PROVIDERS: ATTEND Surgery
DX: K20.9 Esophagitis, unspecified (principal); K25.9 Gastric ulcer, unspecified as acute or chronic, without hemorrhage or perforation; I10 Essential (primary) hypertension; E11.9 Type 2 diabetes mellitus without complications; I25.10 Atherosclerotic heart disease of native coronary artery without angina pectoris; F32.9 Major depressive disorder, single episode, unspecified
CPT/HCPCS: 82962

== ENCOUNTER 2017-04-27 22:59 | Emergency (ER) | payer MEDICARE, OTHER ==
[~2017-04-27] VITALS: Ht 162.6 cm; Wt 63.8 kg
[2017-04-27] MEDS ORDERED: NS IV 1000 ML 1,000 ML ONE (23:21)
[2017-04-27] MEDS ORDERED: ONDANSETRON 4 MG/2 ML (SDV) Z0FRAN ONE (23:21)
[2017-04-27 23:35] LABS: BASOPHILS % (AUTO) 0 % (0-10); EOSINOPHILS # (AUTO) 0.2 10^3/uL (0.0-0.3); EOSINOPHILS % (AUTO) 1 % (0-10); LYMPHOCYTES # (AUTO) 1.2 X 10^3 (1.0-4.0); LYMPHOCYTES % (AUTO) 10 % (12-44); MEAN CORPUSCULAR HEMOGLOBIN 29 PG (25-34); MEAN CORPUSCULAR HGB CONC 33 G/DL (32-36); MEAN CORPUSCULAR VOLUME 89 FL (80-99); MEAN PLATELET VOLUME 9.4 FL (7.4-10.4); MONOCYTES # (AUTO) 0.9 X 10^3 (0.0-1.0); MONOCYTES % (AUTO) 7 % (0-12); NEUTROPHILS # (AUTO) 9.8 X 10^3 (1.8-7.8); NEUTROPHILS % (AUTO) 81 % (42-75); PLATELET COUNT 292 10^3/uL (130-400); RED BLOOD COUNT 4.86 10^6/uL (4.35-5.85); RED CELL DISTRIBUTION WIDTH 13.6 % (10.0-14.5); WHITE BLOOD COUNT 12.1 10^3/uL (4.3-11.0)
[2017-04-27 23:51] LABS: ALBUMIN 4.2 GM/DL (3.2-4.5); BILIRUBIN,TOTAL 0.4 MG/DL (0.1-1.0); CREATININE SERUM 0.99 MG/DL (0.60-1.30); MAGNESIUM 1.8 MG/DL (1.8-2.4); TOTAL PROTEIN 7.3 GM/DL (6.4-8.2)
[2017-04-28] MEDS ORDERED: fentaNYL INJECTION 100 MCG/2 ML AMP IVP ONE
[2017-04-28] MEDS ORDERED: FAMOTIDINE 20MG/2ML IV (PEPCID) IVP ONE
--- OUTSIDE RECORDS SUMMARY | 2017-04-28 00:46 | XMS REPORT | Continuity of Care Document ---
Author Author [facility] Organization [facility] Address Unknown Phone Unavailable Allergies Active Description Code Type Severity Reaction Onset Reported/Identified Relationship to Patient Clinical Status Yes metronidazole [id number] Drug Allergy Moderate hives 03/20/2017 Yes ciprofloxacin [id number] Drug Allergy Unknown ITCHING 03/20/2017 Yes Sulfa (Sulfonamide Antibiotics) [id number] Drug Allergy Unknown N/A 03/20/2017 Medications Problems Date Dx Coded Attending Type Code Diagnosis Diagnosed By 09/15/2010 Ot 455.0 09/15/2010 Ot 455.5 09/15/2010 Ot 569.0 11/23/2010 Ot 250.00 11/23/2010 Ot 272.4 11/23/2010 Ot 300.4 11/23/2010 Ot 401.9 11/23/2010 Ot 414.01 11/23/2010 Ot 447.9 11/23/2010 Ot 786.59 11/23/2010 Ot V15.82 11/23/2010 Ot V45.82 11/23/2010 Ot V58.63 11/23/2010 Ot V58.66 11/23/2010 Ot V58.69 01/07/2011 Ot 276.50 01/07/2011 Ot 787.03 01/07/2011 Ot 787.91 01/14/2011 Ot 490 01/14/2011 Ot 786.2 10/19/2011 Ot 599.0 URIN TRACT INFECTION NOS 10/19/2011 Ot 618.2 UTEROVAG PROLAPS-INCOMPL 10/19/2011 Ot 618.6 VAGINAL ENTEROCELE 10/19/2011 Ot 625.6 FEM STRESS INCONTINENCE 10/19/2011 Ot 788.20 RETENTION OF URINE NOS 10/26/2011 Ot 250.00 DIAB RAMSES WO COMPL, TYPE II OR UNSPEC TY 10/26/2011 Ot 272.4 HYPERLIPIDEMIA NEC/NOS 10/26/2011 Ot 276.50 VOLUME DEPLETION, UNSPECIFIED 10/26/2011 Ot 311 DEPRESSIVE DISORDER NEC 10/26/2011 Ot 558.9 NONINF GASTROENTERIT NEC 10/26/2011 Ot 788.20 RETENTION OF URINE NOS 10/26/2011 Ot 997.5 SURG COMPL-URINARY TRACT 10/26/2011 Ot E878.8 ABN REACT-SURG PROC NEC 12/30/2011 Ot 535.60 DUODENITIS, WITHOUT MENTION OF HEMORRHAG 12/30/2011 Ot 571.8 CHRONIC LIVER DIS NEC 12/30/2011 Ot 599.0 URIN TRACT INFECTION NOS 12/30/2011 Ot 789.09 ABDOMINAL PAIN, OTHER SPECIFIED SITE 12/30/2011 Ot V58.69 OTH MED,LT,CURRENT USE 10/03/2013 JUDITH HINES MD Ot 250.00 DIAB RAMSES WO COMPL, TYPE II OR UNSPEC TY 10/03/2013 JUDITH HINES MD Ot 780.4 DIZZINESS AND GIDDINESS 10/03/2013 JUDITH HINES MD Ot V58.69 OTH MED,LT,CURRENT USE 01/22/2014 ALBERTO NAZARIO MD Ot 455.0 INT HEMORRHOID W/O COMPL 01/22/2014 ALBERTO NAZARIO MD Ot 455.3 EXT HEMORRHOID W/O COMPL 01/22/2014 ALBERTO NAZARIO MD Ot 562.10 DIVERTICULOSIS COLON (W/O MENT OF HEMORR 01/22/2014 ALBERTO NAZARIO MD Ot V12.72 PERSONAL HISTORY OF COLONIC POLYPS 08/05/2014 JACQUELIN RAHMAN FACC, JAZMIN FACP CCDS Ot 250.00 DIAB RAMSES WO COMPL, TYPE II OR UNSPEC TY 08/05/2014 JACQUELIN RAHMAN FACC, JAZMIN FACP CCDS Ot 272.4 HYPERLIPIDEMIA NEC/NOS 08/05/2014 JACQUELIN RAHMAN FACC, JAZMIN FACP CCDS Ot 300.4 DYSTHYMIC DISORDER 08/05/2014 JAZMIN ROPER MD, FACC FACP CCDS Ot 414.01 CORONARY ATHEROSCLEROSIS OF [place] CORON 08/05/2014 JAZMIN ROPER MD, FACCP CCDS Ot 414.4 CORONARY ATHEROSCLEROSIS DUE TO [place] 08/05/2014 JAZMIN ROPER MD, FACC FACP CCDS Ot 786.09 RESPIRATORY ABNORM NEC 08/05/2014 JAZMIN ROPER MD, FACC FACP CCDS Ot 786.59 CHEST PAIN NEC 08/05/2014 JAZMIN ROPER MD, FACC FACP CCDS Ot V45.82 PERCUTANEOUS TRANSLUM CORON ANGIOPLASTY 08/05/2014 JACQUELIN RAHMAN FACC, ALI FACP CCDS Ot V58.63 LONG-TERM(CURRENT)USE OF ANTIPLATELET/AN 08/05/2014 JACQUELIN RAHMAN FACC, ALI FACP CCDS Ot V58.69 OTH MED,LT,CURRENT USE 11/05/2014 ALBERTO NAZARIO MD Ot 530.11 REFLUX ESOPHAGITIS 11/05/2014 ALBERTO NAZARIO MD Ot 535.50 UNSP GASTRITIS GASTRODUODENITIS W/O ME 11/05/2014 ALBERTO NAZARIO MD Ot 553.3 DIAPHRAGMATIC HERNIA 03/23/2015 NATHAN URIAS Ot 847.1 SPRAIN THORACIC REGION 03/23/2015 NATHAN URIAS Ot 959.19 OTH INJURY OF OTHER SITES OF TRUNK 03/23/2015 NATHAN URIAS Ot E000.8 OTHER EXTERNAL CAUSE STATUS 03/23/2015 NATHAN URIAS Ot E013.9 OTHER HOUSEHOLD MAINTENANCE 03/23/2015 NATHAN URIAS Ot E849.0 ACCIDENT IN HOME 03/23/2015 NATHAN URIAS Ot E928.9 ACCIDENT NOS 04/22/2015 FAIZAN RAHMAN, ALLISON R Ot 593.2 04/22/2015 FAIZAN RAHMAN, ALLISON R Ot 722.52 08/18/2015 Ot 433.10 08/18/2015 Ot V76.12 08/18/2015 Ot 285.9 08/18/2015 Ot 618.6 08/18/2015 Ot 625.6 08/18/2015 Ot V72.63 08/18/2015 Ot V74.8 08/18/2015 Ot 599.0 08/18/2015 NEEMA HENSLEY CELERY WRAPPER Ot 414.00 08/18/2015 NEEMA HENSLEY CELERY WRAPPER Ot 786.09 08/18/2015 KAYLEIGH RAHMAN, FELIBERTO Chow Ot 724.9 08/18/2015 ALBERTO NAZARIO MD Ot V72.84 08/18/2015 ALLISON GLORIA MD R Ot 611.72 08/18/2015 ALLISON GLORIA MD R Ot V76.12 08/18/2015 ALBERTO NAZARIO MD Ot V72.84 08/18/2015 ALLISON GLORIA MD R Ot 593.2 08/18/2015 ALLISON GLORIA MD R Ot 722.52 08/20/2015 JACQUELIN RAHMAN FACC, ALI FACP CCDS Ot E11.9 08/20/2015 JACQUELIN RAHMAN FACC, ALI FACP CCDS Ot E78.5 08/20/2015 JACQUELIN RAHMAN FACC, ALI FACP CCDS Ot I25.10 08/20/2015 JACQUELIN RAHMAN FACC, ALI FACP CCDS Ot I65.29 08/20/2015 JACQUELIN RAHMAN FACC, ALI FACP CCDS Ot I73.9 08/20/2015 JACQUELIN RAHMAN FACC, ALI FACP CCDS Ot I77.9 08/20/2015 JACQUELIN RAHAMN FACC, ALI FACP CCDS Ot M54.9 08/20/2015 JACQUELIN RAHMAN FACC, ALI FACP CCDS Ot R06.09 08/20/2015 JACQEULIN RAHMAN FACC, ALI FACP CCDS Ot R53.83 09/01/2015 ALLISON GLORIA MD R Ot R11.10 09/01/2015 ALLISON GLORIA MD R Ot R19.7 09/07/2015 ALLISON GLORIA MD R Ot D50.0 IRON DEFICIENCY ANEMIA SECONDARY TO BLOO 09/07/2015 ALLISON GLORIA MD Ot E11.9 TYPE 2 DIABETES MELLITUS WITHOUT COMPLIC 09/07/2015 ALLISON GLORIA MD R Ot E78.0 PURE HYPERCHOLESTEROLEMIA 09/07/2015 ALLISON GLORIA MD R Ot I25.10 ATHSCL HEART DISEASE OF [place] CORONARY 09/07/2015 ALLISON GLORIA MD R Ot J18.9 PNEUMONIA, UNSPECIFIED ORGANISM 09/07/2015 ALLISON GLORIA MD R Ot K21.9 GASTRO-ESOPHAGEAL REFLUX DISEASE WITHOUT 09/07/2015 ALLISON GLORIA MD R Ot K44.9 DIAPHRAGMATIC HERNIA WITHOUT OBSTRUCTION 09/07/2015 ALLISON GLORIA MD Ot K57.32 DVTRCLI OF LG INT W/O PERFORATION OR ABS 09/07/2015 ALLISON GLORIA MD Ot K64.2 THIRD DEGREE HEMORRHOIDS 09/07/2015 ALLISON GLORIA MD R Ot T45.515A ADVERSE EFFECT OF ANTICOAGULANTS, INITIA 09/07/2015 ALLISON GLORIA MD R Ot Z23 ENCOUNTER FOR IMMUNIZATION 09/07/2015 FAIZAN RAHMAN, ALLISON R Ot Z86.79 PERSONAL HISTORY OF OTHER DISEASES OF TH 09/07/2015 ALLISON GLORIA MD R Ot Z87.891 PERSONAL HISTORY OF NICOTINE DEPENDENCE 09/07/2015 ALLISON GLORIA MD R Ot Z95.820 PERIPHERAL VASCULAR ANGIOPLASTY STATUS W 09/11/2015 JACQUELIN RAHMAN FACC, ALI FACP CCDS Ot E11.9 09/11/2015 JACQUELIN RAHMAN FACC, ALI FACP CCDS Ot E78.5 09/11/2015 JACQUELIN RAHMAN FACC, ALI FACP CCDS Ot I25.10 09/11/2015 JACQUELIN RAHMAN FACC, ALI FACP CCDS Ot I65.29 09/11/2015 JACQUELIN RAHMAN FACC, ALI FACP CCDS Ot I73.9 09/11/2015 JACQUELIN RAHMAN FACC, ALI FACP CCDS Ot I77.9 09/11/2015 JACQUELIN RAHMAN FACC, ALI FACP CCDS Ot M54.9 09/11/2015 JACQUELIN RAHMAN FACC, ALI FACP CCDS Ot R06.09 09/11/2015 JACQUELIN RAHMAN FACC, ALI FACP CCDS Ot R53.83 09/21/2015 JACQUELIN RAHMAN FACC, ALI FACP CCDS Ot E11.9 09/21/2015 JACQUELIN RAHMAN FACC, ALI FACP CCDS Ot E78.5 09/21/2015 JACQUELIN RAHMAN FACC, ALI FACP CCDS Ot I25.10 09/21/2015 JACQUELIN RAHMAN FACC, ALI FACP CCDS Ot I65.29 09/21/2015 JACQUELIN RAHMAN FACC, ALI FACP CCDS Ot I73.9 09/21/2015 JACQUELIN RAHMAN FACC, ALI FACP CCDS Ot I77.9 09/21/2015 JACQUELIN RAHMAN FACC, ALI FACP CCDS Ot M54.9 09/21/2015 JACQUELIN RAHMAN FACC, ALI FACP CCDS Ot R06.09 09/21/2015 JACQUELIN RAHMAN FACC, ALI FACP CCDS Ot R53.83 09/28/2015 FAIZAN RAHMAN, ALLISON R Ot R11.10 09/28/2015 ALLISON GLORIA MD R Ot R19.7 10/07/2015 ALLISON GLORIA MD R Ot D50.0 10/12/2015 ALLISON GLORIA MD R Ot D50.0 10/12/2015 ALBERTO NAZARIO MD, Ot E11.9 TYPE 2 DIABETES MELLITUS WITHOUT COMPLIC 10/12/2015 ALBERTO NAZARIO MD Ot E78.0 PURE HYPERCHOLESTEROLEMIA 10/12/2015 ALBERTO NAZARIO MD Ot I10 ESSENTIAL (PRIMARY) HYPERTENSION 10/12/2015 ALBERTO NAZARIO MD Ot I25.10 ATHSCL HEART DISEASE OF [place] CORONARY 10/12/2015 ALBERTO NAZARIO MD, Ot K21.9 GASTRO-ESOPHAGEAL REFLUX DISEASE WITHOUT 10/12/2015 ALBERTO NAZARIO MD, Ot K64.2 THIRD DEGREE HEMORRHOIDS 10/12/2015 ALBERTO NAZARIO MD Ot R09.02 HYPOXEMIA 10/12/2015 ALBERTO NAZARIO MD, Ot R33.9 RETENTION OF URINE, UNSPECIFIED 10/12/2015 ALBERTO NAZARIO MD, Ot Z87.891 PERSONAL HISTORY OF NICOTINE DEPENDENCE 10/29/2015 ALBERTO NAZARIO MD, Ot K64.2 10/29/2015 ALBERTO NAZARIO MD Ot Z01.812 10/29/2015 ALBERTO NAZARIO MD, Ot Z11.2 11/08/2015 LIA RAHMAN, CARLTON Padilla Ot K57.90 DVRTCLOS OF INTEST, PART UNSP, W/O PERF 11/08/2015 LIA RAHMAN, CARLTON Padilla Ot R10.31 RIGHT LOWER QUADRANT PAIN 11/16/2015 ALLISON GLORIA MD Ot A04.7 ENTEROCOLITIS DUE TO CLOSTRIDIUM DIFFICI 11/16/2015 ALLISON GLORIA MD R Ot E11.9 TYPE 2 DIABETES MELLITUS WITHOUT COMPLIC 11/16/2015 ALLISON GLORIA MD R Ot E86.9 VOLUME DEPLETION, UNSPECIFIED 11/16/2015 ALLISON GLORIA MD Ot 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, SINGLE EPISOD 11/16/2015 ALLISON GLORIA MD Ot I10 ESSENTIAL (PRIMARY) HYPERTENSION 11/16/2015 ALLISON GLORIA MD Ot K21.9 GASTRO-ESOPHAGEAL REFLUX DISEASE WITHOUT 11/16/2015 ALLISON GLORIA MD Ot Z23 ENCOUNTER FOR IMMUNIZATION 11/19/2015 SEGLIE MD, ALLISON R Ot R11.10 11/19/2015 FAIZAN RAHMAN, ALLISON R Ot R19.7 11/29/2015 FAIZAN RAHMAN, ALLISON R Ot R11.10 VOMITING, UNSPECIFIED 11/29/2015 FAIZAN RAHMAN, ALLISON R Ot R19.7 DIARRHEA, UNSPECIFIED 02/28/2016 FAIZAN RAHMAN, ALLISON R Ot R11.10 VOMITING, UNSPECIFIED 02/28/2016 FAIZAN RAHMAN, ALLISON R Ot R19.7 DIARRHEA, UNSPECIFIED 03/30/2016 FAIZAN RAHMAN, ALLISON R Ot R11.10 VOMITING, UNSPECIFIED 03/30/2016 FAIZAN RAHMAN, ALLISON R Ot R19.7 DIARRHEA, UNSPECIFIED 05/19/2016 DONNY RAHMAN, JUDITH Longoria Ot K59.00 CONSTIPATION, UNSPECIFIED 05/20/2016 DONNY RAHMAN, JUDITH Longoria Ot K59.00 CONSTIPATION, UNSPECIFIED 05/30/2016 FAIZAN RAHMAN, ALLISON R Ot R11.10 VOMITING, UNSPECIFIED 05/30/2016 FAIZAN RAHMAN, ALLISON R Ot R19.7 DIARRHEA, UNSPECIFIED 10/11/2016 Ot V76.12 OTH SCREEN MAMMO-MALIGN NEOPLASM OF [place] 10/11/2016 Ot 285.9 ANEMIA NOS 10/11/2016 Ot 618.6 VAGINAL ENTEROCELE 10/11/2016 Ot 625.6 FEM STRESS INCONTINENCE 10/11/2016 Ot V72.63 PRE-PROCEDURAL LABORATORY EXAMINATION 10/11/2016 Ot V74.8 SCREEN-BACTERIAL DIS NEC 10/11/2016 Ot 599.0 URIN TRACT INFECTION NOS 10/11/2016 NEEMA HENSLEY CELERY WRAPPER Ot 414.00 CORON ATHEROSCLER NOS TYPE VESSEL, NATIV 10/11/2016 NEEMA HENSLEY CELERY WRAPPER Ot 786.09 RESPIRATORY ABNORM NEC 10/11/2016 KAYLEIGH RAHMAN, FELIBERTO Chow Ot 724.9 BACK DISORDER NOS 10/11/2016 ALBERTO NAZARIO MD Ot V72.84 EXAM PRE-OPERATIVE NOS 10/11/2016 FAIZAN RAHMAN, ALLISON Pan Ot 611.72 LUMP OR MASS IN BREAST 10/11/2016 FAIZAN RAHMAN, ALLISON R Ot V76.12 OTH SCREEN MAMMO-MALIGN NEOPLASM OF [place] 10/11/2016 ALBERTO NAZARIO MD Ot V72.84 EXAM PRE-OPERATIVE NOS 10/11/2016 FAIZAN RAHMAN, ALLISON R Ot 593.2 CYST OF KIDNEY, ACQUIRED 10/11/2016 FAIZAN RAHMAN, ALLISON R Ot 722.52 LUMB/LUMBOSAC DISC DEGEN 10/11/2016 JACQUELIN NORWOODC, ALI FACP CCDS Ot E11.9 TYPE 2 DIABETES MELLITUS WITHOUT COMPLIC 10/11/2016 JACQUELIN RAHMAN FACC, ALI FACP CCDS Ot E78.5 HYPERLIPIDEMIA, UNSPECIFIED 10/11/2016 JACQUELIN NORWOODC, ALI FACP CCDS Ot I25.10 ATHSCL HEART DISEASE OF [place] CORONARY 10/11/2016 JACQUELIN RAHMAN FACC, ALI FACP CCDS Ot I65.29 OCCLUSION AND STENOSIS OF UNSPECIFIED CA 10/11/2016 JACQUELIN RAHMAN FACC, ALI FACP CCDS Ot I73.9 PERIPHERAL VASCULAR DISEASE, UNSPECIFIED 10/11/2016 JACQUELIN NORWOODC, ALI FACP CCDS Ot I77.9 DISORDER OF ARTERIES AND ARTERIOLES, UNS 10/11/2016 JACQUELIN RAHMAN FACC, ALI FACP CCDS Ot M54.9 DORSALGIA, UNSPECIFIED 10/11/2016 JACQUELIN RAHMAN FACC, ALI FACP CCDS Ot R06.09 OTHER FORMS OF DYSPNEA 10/11/2016 JACQUELIN RAHMAN FACC, ALI FACP CCDS Ot R53.83 OTHER FATIGUE 10/11/2016 JACQUELIN RAHMAN FACC, ALI FACP CCDS Ot E11.9 TYPE 2 DIABETES MELLITUS WITHOUT COMPLIC 10/11/2016 JACQUELIN RAHMAN FACC, ALI FACP CCDS Ot E78.5 HYPERLIPIDEMIA, UNSPECIFIED 10/11/2016 JACQUELIN RAHMAN FACC, ALI FACP CCDS Ot I25.10 ATHSCL HEART DISEASE OF [place] CORONARY 10/11/2016 JACQUELIN RAHMAN FACC, ALI FACP CCDS Ot I65.29 OCCLUSION AND STENOSIS OF UNSPECIFIED CA 10/11/2016 JACQUELIN RAHMAN FACC, ALI FACP CCDS Ot I73.9 PERIPHERAL VASCULAR DISEASE, UNSPECIFIED 10/11/2016 JACQUELIN RAHMAN FACC, ALI FACP CCDS Ot I77.9 DISORDER OF ARTERIES AND ARTERIOLES, UNS 10/11/2016 JACQUELIN RAHMAN FACC, ALI FACP CCDS Ot M54.9 DORSALGIA, UNSPECIFIED 10/11/2016 JACQUELIN MD FACC, ALI FACP CCDS Ot R06.09 OTHER FORMS OF DYSPNEA 10/11/2016 JACQUELIN RAHMAN FACC, ALI FACP CCDS Ot R53.83 OTHER FATIGUE 10/11/2016 FAIZAN RAHMAN, ALLISON R Ot R11.10 VOMITING, UNSPECIFIED 10/11/2016 FAIZAN RAHMAN, ALLISON R Ot R19.7 DIARRHEA, UNSPECIFIED 10/11/2016 FAIZAN RAHMAN, ALLISON R Ot D50.0 IRON DEFICIENCY ANEMIA SECONDARY TO BLOO 10/11/2016 ALBERTO NAZARIO MD Ot K64.2 THIRD DEGREE HEMORRHOIDS 10/11/2016 ALBERTO NAZARIO MD Ot Z01.812 ENCOUNTER FOR PREPROCEDURAL LABORATORY E 10/11/2016 ALBERTO NAZARIO MD, Ot Z11.2 ENCOUNTER FOR SCREENING FOR OTHER BACTER 10/11/2016 Ot R11.10 VOMITING, UNSPECIFIED 10/11/2016 Ot R19.7 DIARRHEA, UNSPECIFIED 10/12/2016 JACQUELIN RAHMAN FACC, ALI FACP CCDS Ot E78.4 OTHER HYPERLIPIDEMIA 10/12/2016 JACQUELIN RAHMAN FACC, ALI FACP CCDS Ot I25.10 ATHSCL HEART DISEASE OF [place] CORONARY 10/12/2016 JACQUELIN RAHMAN FACC, ALI FACP CCDS Ot 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 10/12/2016 JACQUELIN RAHMAN FACC, ALI FACP CCDS Ot K21.9 GASTRO-ESOPHAGEAL REFLUX DISEASE WITHOUT 10/12/2016 JACQUELIN RAHMAN FACC, ALI FACP CCDS Ot R53.83 OTHER FATIGUE 10/14/2016 LINDSEY ARHMAN, DIANE Alejo Ot R10.13 EPIGASTRIC PAIN 10/14/2016 LINDSEY RAHMAN, DIANE Alejo Ot Z01.818 ENCOUNTER FOR OTHER PREPROCEDURAL EXAMIN 10/17/2016 LINDSEY RAHMAN, DIANE Alejo Ot E11.9 TYPE 2 DIABETES MELLITUS WITHOUT COMPLIC 10/17/2016 DIANE PORTILLO MD Ot K20.9 ESOPHAGITIS, UNSPECIFIED 10/17/2016 DIANE PORTILLO MD Ot K25.9 GASTRIC ULCER, UNSP ACUTE OR CHRONIC, 10/18/2016 DIANE PORTILLO MD Ot E11.9 TYPE 2 DIABETES MELLITUS WITHOUT COMPLIC 10/18/2016 DIANE PORTILLO MD Ot K20.9 ESOPHAGITIS, UNSPECIFIED 10/18/2016 LINDSEY RAHMAN, DIANE Alejo Ot K25.9 GASTRIC ULCER, UNSP ACUTE OR CHRONIC, 10/27/2016 LINDSEY RAHMAN, DIANE Alejo Ot E11.9 TYPE 2 DIABETES MELLITUS WITHOUT COMPLIC 10/27/2016 LINDSEY RAHMAN, DIANE Alejo Ot K20.9 ESOPHAGITIS, UNSPECIFIED 10/27/2016 LINDSEY RAHMAN, DIANE Alejo Ot K25.9 GASTRIC ULCER, UNSP ACUTE OR CHRONIC, 10/27/2016 YUNIER, GRIFFIN CELERY WRAPPER Ot E11.9 TYPE 2 DIABETES MELLITUS WITHOUT COMPLIC 10/27/2016 YUNIER, GRIFFIN CELERY WRAPPER Ot K76.0 FATTY (CHANGE OF) LIVER, NOT ELSEWHERE C 10/27/2016 YUNIER, GRIFFNI CELERY WRAPPER Ot N32.9 BLADDER DISORDER, UNSPECIFIED 10/27/2016 YUNIER, GRIFFIN CELERY WRAPPER Ot R19.7 DIARRHEA, UNSPECIFIED 10/27/2016 YUNIER, GRIFFIN CELERY WRAPPER Ot Z79.82 [employer] MECH[employer]IC (CURRENT) USE OF ASPIRIN 10/27/2016 YUNIER, GRIFFIN CELERY WRAPPER Ot Z79.84 AIR[employer] MECHANIC (CURRENT) USE OF ORAL HYPOGLYC 10/27/2016 YUNIER, GRIFFIN CELERY WRAPPER Ot Z79.899 OTHER ASSISTED (CURRENT) DRUG THERAPY 10/28/2016 YUNIER, GRIFFIN CELERY WRAPPER Ot E11.9 TYPE 2 DIABETES MELLITUS WITHOUT COMPLIC 10/28/2016 YUNIER, GRIFFIN CELERY WRAPPER Ot K76.0 FATTY (CHANGE OF) LIVER, NOT ELSEWHERE C 10/28/2016 YUNIER, GRIFFIN CELERY WRAPPER Ot N32.9 BLADDER DISORDER, UNSPECIFIED 10/28/2016 YUNIER, GRIFFIN CELERY WRAPPER Ot R19.7 DIARRHEA, UNSPECIFIED 10/28/2016 YUNIER, GRIFFIN CELERY WRAPPER Ot Z79.82 ASSISTED (CURRENT) USE OF ASPIRIN 10/28/2016 YUNIER, GRIFFIN CELERY WRAPPER Ot Z79.84 [employer] MECHANIC (CURRENT) USE OF ORAL HYPOGLYC 10/28/2016 YUNIER, GRIFFIN CELERY WRAPPER Ot Z79.899 OTHER AIR[employer] PL[employer] MECHANIC (CURRENT) DRUG THERAPY 10/28/2016 LOPEZ KEE LAST INSERTER Ot E11.9 TYPE 2 DIABETES MELLITUS WITHOUT COMPLIC 10/28/2016 LOPEZ KEE LAST INSERTER Ot N32.9 BLADDER DISORDER, UNSPECIFIED 10/28/2016 LOPEZ KEE LAST INSERTER Ot R11.2 NAUSEA WITH VOMITING, UNSPECIFIED 10/28/2016 LOPEZ KEE APRN Ot R19.7 DIARRHEA, UNSPECIFIED 10/28/2016 LOPEZ KEE LAST INSERTER Ot Z79.82 AIR[employer] MECHANIC (CURRENT) USE OF ASPIRIN 10/28/2016 LOPEZ KEE LAST INSERTER Ot Z79.84 AIR[employer] MECHANIC (CURRENT) USE OF ORAL HYPOGLYC 10/28/2016 LOPEZ KEE LAST INSERTER Ot Z79.899 OTHER ASSISTED (CURRENT) DRUG THERAPY 10/30/2016 GRIFFIN FAYE CELERY WRAPPER Ot E11.9 TYPE 2 DIABETES MELLITUS WITHOUT COMPLIC 10/30/2016 YUNIER GRIFFIN CELERY WRAPPER Ot K76.0 FATTY (CHANGE OF) LIVER, NOT ELSEWHERE C 10/30/2016 YUNIER GRIFFIN CELERY WRAPPER Ot N32.9 BLADDER DISORDER, UNSPECIFIED 10/30/2016 YUNIER GRIFFIN CELERY WRAPPER Ot R19.7 DIARRHEA, UNSPECIFIED 10/30/2016 YUNIER GRIFFIN CELERY WRAPPER Ot Z79.82 AIR[employer] MECHANIC (CURRENT) USE OF ASPIRIN 10/30/2016 YUNIER GRIFFIN CELERY WRAPPER Ot Z79.84 ASSISTED (CURRENT) USE OF ORAL HYPOGLYC 10/30/2016 GRIFFIN FAYE CELERY WRAPPER Ot Z79.899 OTHER ASSISTED (CURRENT) DRUG THERAPY 11/01/2016 LOPEZ KEE APRN Ot E11.9 TYPE 2 DIABETES MELLITUS WITHOUT COMPLIC 11/01/2016 LOPEZ KEE LAST INSERTER Ot N32.9 BLADDER DISORDER, UNSPECIFIED 11/01/2016 LOPEZ KEE LAST INSERTER Ot R11.2 NAUSEA WITH VOMITING, UNSPECIFIED 11/01/2016 LOPEZ KEE LAST INSERTER Ot R19.7 DIARRHEA, UNSPECIFIED 11/01/2016 LOPEZ KEE LAST INSERTER Ot Z79.82 AIR[employer] MECHANIC (CURRENT) USE OF ASPIRIN 11/01/2016 LOPEZ KEE LAST INSERTER Ot Z79.84 [employer] MECHANIC (CURRENT) USE OF ORAL HYPOGLYC 11/01/2016 LOPEZ KEE LAST INSERTER Ot Z79.899 OTHER AIR[employer] PL[employer] MECHANIC (CURRENT) DRUG THERAPY 11/07/2016 JACQUELIN RAHMAN FACC, JAZMIN NORWOODP CCDS Ot E78.4 OTHER HYPERLIPIDEMIA 11/07/2016 JACQUELIN RAHMAN FACC, JAZMIN NORWOODP CCDS Ot I25.10 ATHSCL HEART DISEASE OF [place] CORONARY 11/07/2016 JACQUELIN RAHMAN FACC, JAZMIN NORWOODP CCDS Ot 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 11/07/2016 JACQUELIN RAHMAN [facility], JAZMIN BLANCHARD CCDS Ot K21.9 GASTRO-ESOPHAGEAL REFLUX DISEASE WITHOUT 11/07/2016 JACQUELIN RAHMAN FACC, JAZMIN BLANCHARD CCDS Ot R53.83 OTHER FATIGUE 11/07/2016 Ot R11.10 VOMITING, UNSPECIFIED 11/07/2016 Ot R19.7 DIARRHEA, UNSPECIFIED 11/07/2016 TRESSA URIASEN L Ot E11.9 TYPE 2 DIABETES MELLITUS WITHOUT COMPLIC 11/07/2016 TRESSA URIASEN L Ot 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 11/07/2016 TRESSA URIASEN L Ot L50.9 URTICARIA, UNSPECIFIED 11/07/2016 TRESSA URIASEN L Ot Z79.82 [employer] MECH[employer]IC (CURRENT) USE OF ASPIRIN 11/07/2016 TRESSA URIASEN L Ot Z79.899 OTHER ASSISTED (CURRENT) DRUG THERAPY 11/15/2016 TRESSA URIASEN L Ot 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 11/15/2016 TRESSA URIASEN L Ot L50.9 URTICARIA, UNSPECIFIED 11/15/2016 TRESSA URIASEN L Ot E11.9 TYPE 2 DIABETES MELLITUS WITHOUT COMPLIC 11/15/2016 TRESSA URIASEN L Ot 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 11/15/2016 TRESSA URIASEN L Ot L50.9 URTICARIA, UNSPECIFIED 11/15/2016 TRESSA URIASEN L Ot Z79.82 AIR[employer] MECHANIC (CURRENT) USE OF ASPIRIN 11/15/2016 TRESSA URIASEN L Ot Z79.899 OTHER ASSISTED (CURRENT) DRUG THERAPY 11/15/2016 MUNIR ROCHE MD Ot 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 11/15/2016 MUNIR ROCHE MD Ot Z01.818 ENCOUNTER FOR OTHER PREPROCEDURAL EXAMIN 11/16/2016 MUNIR ROCHE MD Ot 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 11/16/2016 MUNIR ROCHE MD Ot E11.9 TYPE 2 DIABETES MELLITUS WITHOUT COMPLIC 11/16/2016 MUNIR ROCHE MD Ot Z11.2 ENCOUNTER FOR SCREENING FOR OTHER BACTER 11/17/2016 NATHAN URIAS Ot E11.9 TYPE 2 DIABETES MELLITUS WITHOUT COMPLIC 11/17/2016 NATHAN URIAS Ot 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 11/17/2016 NATHAN URIAS Ot L50.9 URTICARIA, UNSPECIFIED 11/17/2016 NATHAN URIAS Ot Z79.82 [employer] (CURRENT) USE OF ASPIRIN 11/17/2016 NATHAN URIAS Ot Z79.899 OTHER [employer] (CURRENT) DRUG THERAPY 11/17/2016 MUNIR ROCHE MD Ot 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 11/17/2016 MUNIR ROCHE MD Ot E11.9 TYPE 2 DIABETES MELLITUS WITHOUT COMPLIC 11/17/2016 MUNIR ROCHE MD Ot Z11.2 ENCOUNTER FOR SCREENING FOR OTHER BACTER 11/18/2016 MUNIR ROCHE MD Ot 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 11/18/2016 MUNIR ROCHE MD Ot E11.9 TYPE 2 DIABETES MELLITUS WITHOUT COMPLIC 11/18/2016 MUNIR ROCHE MD Ot Z11.2 ENCOUNTER FOR SCREENING FOR OTHER BACTER 11/18/2016 MUNIR ROCHE MD Ot R33.9 RETENTION OF URINE, UNSPECIFIED 11/21/2016 MUNIR ROCHE MD Ot 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 11/21/2016 MUNIR ROCHE MD Ot E11.9 TYPE 2 DIABETES MELLITUS WITHOUT COMPLIC 11/21/2016 MUNIR ROCHE MD Ot Z11.2 ENCOUNTER FOR SCREENING FOR OTHER BACTER 11/28/2016 ALLISON GLORIA MD R Ot E04.0 NONTOXIC DIFFUSE GOITER 11/30/2016 CHANDNI GLORIA MDYD R Ot R11.10 VOMITING, UNSPECIFIED 11/30/2016 CHANDNI GLORIA MDYD R Ot R19.7 DIARRHEA, UNSPECIFIED 12/21/2016 MUNIR ROCHE MD Ot 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 12/21/2016 MUNIR ROCHE MD Ot E11.9 TYPE 2 DIABETES MELLITUS WITHOUT COMPLIC 12/21/2016 UMNIR ROCHE MD Ot Z11.2 ENCOUNTER FOR SCREENING FOR OTHER BACTER 12/21/2016 JOYCE MONAE LAST INSERTER Ot R11.10 VOMITING, UNSPECIFIED 12/21/2016 JOYCE MONAE LAST INSERTER Ot R19.7 DIARRHEA, UNSPECIFIED 12/27/2016 FAIZAN RAHMAN, ALLISON R Ot E04.0 NONTOXIC DIFFUSE GOITER 01/26/2017 JOYCE MONAE LAST INSERTER Ot R11.10 VOMITING, UNSPECIFIED 01/26/2017 JOYCE MONAE LAST INSERTER Ot R19.7 DIARRHEA, UNSPECIFIED 01/28/2017 FAIZAN RAHMAN, ALLISON R Ot R11.10 VOMITING, UNSPECIFIED 01/28/2017 FAIZAN RAHMAN, ALLISON R Ot R19.7 DIARRHEA, UNSPECIFIED 02/22/2017 LOPEZ KEE APRN Ot E11.9 TYPE 2 DIABETES MELLITUS WITHOUT COMPLIC 02/22/2017 LOPEZ KEE APRN Ot K02.9 DENTAL CARIES, UNSPECIFIED 02/22/2017 LOPEZ KEE APRN Ot K08.9 DISORDER OF TEETH AND SUPPORTING STRUCTU 02/22/2017 LOPEZ KEE APRN Ot Z79.4 ASSISTED (CURRENT) USE OF INSULIN 02/23/2017 LOPEZ KEE APRN Ot E11.9 TYPE 2 DIABETES MELLITUS WITHOUT COMPLIC 02/23/2017 LOPEZ KEE APRN Ot K02.9 DENTAL CARIES, UNSPECIFIED 02/23/2017 LOPEZ KEE APRN Ot K08.9 DISORDER OF TEETH AND SUPPORTING STRUCTU 02/23/2017 LOPEZ KEE APRN Ot Z79.4 ASSISTED (CURRENT) USE OF INSULIN 03/01/2017 LOPEZ KEE APRN Ot E11.9 TYPE 2 DIABETES MELLITUS WITHOUT COMPLIC 03/01/2017 LOPEZ KEE APRN Ot K02.9 DENTAL CARIES, UNSPECIFIED 03/01/2017 LOPEZ KEE APRN Ot K08.9 DISORDER OF TEETH AND SUPPORTING STRUCTU 03/01/2017 LOPEZ KEE APRN Ot Z79.4 [employer] (CURRENT) USE OF INSULIN 03/17/2017 Ot R11.10 VOMITING, UNSPECIFIED 03/17/2017 Ot R19.7 DIARRHEA, UNSPECIFIED 03/17/2017 JOYCE MONAE LAST INSERTER Ot R11.10 VOMITING, UNSPECIFIED 03/17/2017 JOYCE MONAE LAST INSERTER Ot R19.7 DIARRHEA, UNSPECIFIED 03/17/2017 Ot 285.9 ANEMIA NOS 03/17/2017 Ot 618.6 VAGINAL ENTEROCELE 03/17/2017 Ot 625.6 FEM STRESS INCONTINENCE 03/17/2017 Ot V72.63 PRE-PROCEDURAL LABORATORY EXAMINATION 03/17/2017 Ot V74.8 SCREEN-BACTERIAL DIS NEC 03/17/2017 Ot 599.0 URIN TRACT INFECTION NOS 03/17/2017 NEEMA HENSLEY CELERY WRAPPER Ot 414.00 CORON ATHEROSCLER NOS TYPE VESSEL, NATIV 03/17/2017 NEEMA HENSLEY CELERY WRAPPER Ot 786.09 RESPIRATORY ABNORM NEC 03/17/2017 KAYLEIGH RAHMAN, FELIBERTO Chow Ot 724.9 BACK DISORDER NOS 03/17/2017 ARAVIND RAHMAN, ALBERTO Ot V72.84 EXAM PRE-OPERATIVE NOS 03/17/2017 FAIZAN RAHMAN, ALLISON Pan Ot 611.72 LUMP OR MASS IN BREAST 03/17/2017 ALLISON GLORIA MD R Ot V76.12 OTH SCREEN MAMMO-MALIGN NEOPLASM OF [place] 03/17/2017 ALBERTO NAZARIO MD Ot V72.84 EXAM PRE-OPERATIVE NOS 03/17/2017 ALLISON GLORIA MD R Ot 593.2 CYST OF KIDNEY, ACQUIRED 03/17/2017 ALLISON GLORIA MD R Ot 722.52 LUMB/LUMBOSAC DISC DEGEN 03/17/2017 JACQUELIN RAHMAN FACC, JAZMIN FACP CCDS Ot E11.9 TYPE 2 DIABETES MELLITUS WITHOUT COMPLIC 03/17/2017 JACQUELIN RAHMAN FACC, JAZMIN FACP CCDS Ot E78.5 HYPERLIPIDEMIA, UNSPECIFIED 03/17/2017 JACQUELIN RAHMAN FACC, JAZMIN FACP CCDS Ot I25.10 ATHSCL HEART DISEASE OF [place] CORONARY 03/17/2017 JACQUELIN RAHMAN FACC, ALI FACP CCDS Ot I65.29 OCCLUSION AND STENOSIS OF UNSPECIFIED CA 03/17/2017 JACQUELIN RAHMAN FACC, ALI FACP CCDS Ot I73.9 PERIPHERAL VASCULAR DISEASE, UNSPECIFIED 03/17/2017 JACQUELIN RAHMAN FACC, JAZMIN FACP CCDS Ot I77.9 DISORDER OF ARTERIES AND ARTERIOLES, UNS 03/17/2017 JAZMIN ROPER MD, FACC FACP CCDS Ot M54.9 DORSALGIA, UNSPECIFIED 03/17/2017 JACQUELIN RAHMAN FACC, JAZMIN FACP CCDS Ot R06.09 OTHER FORMS OF DYSPNEA 03/17/2017 JACQUELIN MD FACC, ALI FACP CCDS Ot R53.83 OTHER FATIGUE 03/17/2017 JACQUELIN RAHMAN FACC, ALI FACP CCDS Ot E11.9 TYPE 2 DIABETES MELLITUS WITHOUT COMPLIC 03/17/2017 JACQUELIN RAHMAN FACC, ALI FACP CCDS Ot E78.5 HYPERLIPIDEMIA, UNSPECIFIED 03/17/2017 JACQUELIN RAHMAN FACC, ALI FACP CCDS Ot I25.10 ATHSCL HEART DISEASE OF [place] CORONARY 03/17/2017 JACQUELIN RAHMAN FACC, ALI FACP CCDS Ot I65.29 OCCLUSION AND STENOSIS OF UNSPECIFIED CA 03/17/2017 JACQUELIN RAHMAN FACC, ALI FACP CCDS Ot I73.9 PERIPHERAL VASCULAR DISEASE, UNSPECIFIED 03/17/2017 JACQUELIN RAHMAN FACC, ALI FACP CCDS Ot I77.9 DISORDER OF ARTERIES AND ARTERIOLES, UNS 03/17/2017 JACQUELIN RAHMAN FACC, ALI FACP CCDS Ot M54.9 DORSALGIA, UNSPECIFIED 03/17/2017 JACQUELIN RAHMAN FACC, ALI FACP CCDS Ot R06.09 OTHER FORMS OF DYSPNEA 03/17/2017 JACQUELIN RAHMAN FACC, ALI FACP CCDS Ot R53.83 OTHER FATIGUE 03/17/2017 ALLISON GLORIA MD R Ot R11.10 VOMITING, UNSPECIFIED 03/17/2017 ALLISON GLORIA MD R Ot R19.7 DIARRHEA, UNSPECIFIED 03/17/2017 ALLISON GLORIA MD R Ot D50.0 IRON DEFICIENCY ANEMIA SECONDARY TO BLOO 03/17/2017 ALBERTO NAZARIO MD Ot K64.2 THIRD DEGREE HEMORRHOIDS 03/17/2017 ALBERTO NAZARIO MD Ot Z01.812 ENCOUNTER FOR PREPROCEDURAL LABORATORY E 03/17/2017 ALBERTO NAZARIO MD Ot Z11.2 ENCOUNTER FOR SCREENING FOR OTHER BACTER 03/17/2017 Ot R11.10 VOMITING, UNSPECIFIED 03/17/2017 Ot R19.7 DIARRHEA, UNSPECIFIED 03/17/2017 JACQUELIN RAHMAN FACC, ALI FACP CCDS Ot E78.4 OTHER HYPERLIPIDEMIA 03/17/2017 JACQUELIN RAHMAN FACC, ALI FACP CCDS Ot I25.10 ATHSCL HEART DISEASE OF [place] CORONARY 03/17/2017 JACQUELIN RAHMAN FACC, ALI FACP CCDS Ot 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 03/17/2017 JACQUELIN RAHMAN FAC, ALI CUCOP CCDS Ot K21.9 GASTRO-ESOPHAGEAL REFLUX DISEASE WITHOUT 03/17/2017 JACQUELIN RAHMAN FACEllen, ALI FACP CCDS Ot R53.83 OTHER FATIGUE 03/17/2017 LINDSEY RAHMAN, DIANE Alejo Ot R10.13 EPIGASTRIC PAIN 03/17/2017 LINDSEY RAHMAN, DIANE Alejo Ot Z01.818 ENCOUNTER FOR OTHER PREPROCEDURAL EXAMIN 03/17/2017 FAIZAN RAHMAN, ALLISON R Ot E04.0 NONTOXIC DIFFUSE GOITER 03/17/2017 FAIZAN RAHMAN, ALLISON R Ot E04.0 NONTOXIC DIFFUSE GOITER 03/20/2017 Ot R11.10 VOMITING, UNSPECIFIED 03/20/2017 Ot R19.7 DIARRHEA, UNSPECIFIED 03/20/2017 JOYCE MONAE LAST INSERTER Ot R11.10 VOMITING, UNSPECIFIED 03/20/2017 JOYCE MONAE LAST INSERTER Ot R19.7 DIARRHEA, UNSPECIFIED 03/20/2017 DIANE PORTILLO MD Ot E11.9 TYPE 2 DIABETES MELLITUS WITHOUT COMPLIC 03/20/2017 DIANE PORTILLO MD Ot 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, SINGLE EPISOD 03/20/2017 DIANE PORTILLO MD Ot I10 ESSENTIAL (PRIMARY) HYPERTENSION 03/20/2017 DIANE PORTILLO MD Ot I25.10 ATHSCL HEART DISEASE OF [place] CORONARY 03/20/2017 DIANE PORTILLO MD Ot K20.9 ESOPHAGITIS, UNSPECIFIED 03/20/2017 DIANE PORTILLO MD Ot K25.9 GASTRIC ULCER, UNSP ACUTE OR CHRONIC, 03/22/2017 DIANE PORTILLO MD Ot E11.9 TYPE 2 DIABETES MELLITUS WITHOUT COMPLIC 03/22/2017 DIANE PORTILLO MD Ot 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, SINGLE EPISOD 03/22/2017 DIANE PORTILLO MD Ot I10 ESSENTIAL (PRIMARY) HYPERTENSION 03/22/2017 DIANE PORTILLO MD Ot I25.10 ATHSCL HEART DISEASE OF [place] CORONARY 03/22/2017 DIANE PORTILLO MD Ot K20.9 ESOPHAGITIS, UNSPECIFIED 03/22/2017 DIANE PORTILLO MD Ot K25.9 GASTRIC ULCER, UNSP ACUTE OR CHRONIC, 03/26/2017 IDANE PORTILLO MD, Ot E11.9 TYPE 2 DIABETES MELLITUS WITHOUT COMPLIC 03/26/2017 DIANE PORTILLO MD, Ot 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, SINGLE EPISOD 03/26/2017 DIANE PORTILLO MD, Ot I10 ESSENTIAL (PRIMARY) HYPERTENSION 03/26/2017 DIANE PORTILLO MD, Ot I25.10 ATHSCL HEART DISEASE OF [place] CORONARY 03/26/2017 DIANE PORTILLO MD, Ot K20.9 ESOPHAGITIS, UNSPECIFIED 03/26/2017 DIANE PORTILLO MD, Ot K25.9 GASTRIC ULCER, UNSP ACUTE OR CHRONIC, Procedures Code Description Performed By Performed On 59.79 URIN INCONTIN REPAIR NEC 10/17/2011 70.24 VAGINAL BIOPSY 70.50 CYSTOCEL/RECTOCEL REPAIR 10/17/2011 70.8 VAGINAL VAULT OBLITERAT 10/17/2011 [id number] EXCISION OF HEMORRHOIDAL PLEXUS, OPEN AP 10/08/2015 Results Test Result Range Capillary blood glucose measurement by glucometer (mass/volume) - 10/17/16 10: 40 Capillary blood glucose measurement by glucometer (mass/volume) 138 mg/dL 70-110 Complete blood count (CBC) with automated white blood cell (WBC) differential - 10/27/16 11:25 Blood leukocytes automated count (number/volume) 8.1 10*3/ uL 4.3-11.0 Blood erythrocytes automated count (number/volume) 4.24 10*6 /uL 4.35-5.85 Venous blood hemoglobin measurement (mass/volume) 13.1 g/dL 11.5-16.0 Blood hematocrit (volume fraction) 40 % 35-52 Automated erythrocyte mean corpuscular volume 93 [foz_us] 80-99 Automated erythrocyte mean corpuscular hemoglobin (mass per erythrocyte) 31 pg 25-34 Automated erythrocyte mean corpuscular hemoglobin concentration measurement ( mass/volume) 33 g/dL 32-36 Automated erythrocyte distribution width ratio 13.6 % 10.0-14.5 Automated blood platelet count (count/volume) 277 10*3/uL 130-400 Automated blood platelet mean volume measurement 9.4 [foz_us ] 7.4-10.4 Automated blood neutrophils/100 leukocytes 74 % 42-75 Automated blood lymphocytes/100 leukocytes 18 % 12-44 Blood monocytes/100 leukocytes 5 % 0-12 Automated blood eosinophils/100 leukocytes 3 % 0-10 Automated blood basophils/100 leukocytes 0 % 0-10 Blood neutrophils automated count (number/volume) 6.0 10*3 1.8-7.8 Blood lymphocytes automated count (number/volume) 1.4 10*3 1.0-4.0 Blood monocytes automated count (number/volume) 0.4 10*3 0.0-1.0 Automated eosinophil count 0.3 10*3/uL 0.0-0.3 Automated blood basophil count (count/volume) 0.0 10*3/uL 0.0-0.1 Comprehensive metabolic panel - 10/27/16 11:25 Serum or plasma sodium measurement (moles/volume) 138 mmol/ L 135-145 Serum or plasma potassium measurement (moles/volume) 3.6 mmol/L 3.6-5.0 Serum or plasma chloride measurement (moles/volume) 103 mmol /L 98-107 Carbon dioxide 25 mmol/L 21-32 Serum or plasma anion gap determination (moles/volume) 10 mmol/L 5-14 Serum or plasma urea nitrogen measurement (mass/volume) 15 mg/dL 7-18 Serum or plasma creatinine measurement (mass/volume) 0.95 mg /dL 0.60-1.30 Serum or plasma urea nitrogen/creatinine mass ratio 16 NRG Serum or plasma creatinine measurement with calculation of estimated glomerular filtration rate 56 NRG Serum or plasma glucose measurement (mass/volume) 255 mg/dL 70-105 Serum or plasma calcium measurement (mass/volume) 9.6 mg/dL 8.5-10.1 Serum or plasma total bilirubin measurement (mass/volume) 0.3 mg/dL 0.1-1.0 Serum or plasma alkaline phosphatase measurement (enzymatic activity/volume) 88 U/L 40-136 Serum or plasma aspartate aminotransferase measurement (enzymatic activity/ volume) 35 U/L 5-34 Serum or plasma alanine aminotransferase measurement (enzymatic activity/volume ) 33 U/L 0-55 Serum or plasma protein measurement (mass/volume) 6.2 g/dL 6.4-8.2 Serum or plasma albumin measurement (mass/volume) 3.9 g/dL 3.2-4.5 Serum or plasma amylase measurement (enzymatic activity/volume) - 10/27/16 11: 25 Serum or plasma amylase measurement (enzymatic activity/volume) 44 U/L 25-125 Lipase - 10/27/16 11:25 Lipase 82 U/L 8-78 Complete urinalysis with reflex to culture - 10/27/16 11:25 Urine color determination YELLOW NRG Urine clarity determination SLIGHTLY CLOUDY NRG Urine pH measurement by test strip 5 5- 9 Specific gravity of urine by test strip 1.015 1.016-1.022 Urine protein assay by test strip, semi-quantitative 1+ NEGATIVE Urine glucose detection by automated test strip 4+ NEGATIVE Erythrocytes detection in urine sediment by light microscopy 1+ NEGATIVE Urine ketones detection by automated test strip NEGATIVE NEGATIVE Urine nitrite detection by test strip NEGATIVE NEGATIVE Urine total bilirubin detection by test strip NEGATIVE NEGATIVE Urine urobilinogen measurement by automated test strip (mass/volume) NORMAL NORMAL Urine leukocyte esterase detection by dipstick 2+ NEGATIVE Automated urine sediment erythrocyte count by microscopy (number/high power field) RARE NRG Automated urine sediment leukocyte count by microscopy (number/high power field ) [HPF] NRG Bacteria detection in urine sediment by light microscopy NEGATIVE NRG Squamous epithelial cells detection in urine sediment by light microscopy 2-5 NRG Crystals detection in urine sediment by light microscopy NONE NRG Casts detection in urine sediment by light microscopy NONE NRG Mucus detection in urine sediment by light microscopy NEGATIVE NRG Complete urinalysis with reflex to culture YES NRG Bacterial urine culture - 10/27/16 11:25 Bacterial urine culture NG NRG Clostridium difficile detection - 10/28/16 10:00 C DIFF MOLECULAR RESULT Positive for toxigenic C diff by DNA amplification NRG CALL POSITIVES (F1 HELP) CALLED TO GRIFFIN/ED AT 1508, 2015/KD NRG C DIFFICILE AG + TOXIN A/B. - 10/28/16 10:00 RESULTS INDETERMINANT; MOLECULAR TEST TO FOLLOW NRG Stool bacteria identification by culture - 10/28/16 10:00 FREE TEXT EXTERNAL NO GROWTH OF NORMAL ENTERIC PARTHA NRG QUANTITY OF GROWTH Abundant Growth NRG Stool bacteria identification by culture [id number] NRG NEGATIVE FOR 0157 NEGATIVE FOR E COLI 0157 NRG NEGATIVE FOR CAMPY NEGATIVE FOR CAMPYLOBACTER NRG NEGATIVE FOR SHIGELLA NEGATIVE FOR SHIGELLA NRG NEGATIVE FOR SALMONELLA NEGATIVE FOR SALMONELLA NRG Complete blood count (CBC) with automated white blood cell (WBC) differential - 10/28/16 11:00 Blood leukocytes automated count (number/volume) 8.8 10*3/ uL 4.3-11.0 Blood erythrocytes automated count (number/volume) 4.38 10*6 /uL 4.35-5.85 Venous blood hemoglobin measurement (mass/volume) 13.5 g/dL 11.5-16.0 Blood hematocrit (volume fraction) 41 % 35-52 Automated erythrocyte mean corpuscular volume 93 [foz_us] 80-99 Automated erythrocyte mean corpuscular hemoglobin (mass per erythrocyte) 31 pg 25-34 Automated erythrocyte mean corpuscular hemoglobin concentration measurement ( mass/volume) 33 g/dL 32-36 Automated erythrocyte distribution width ratio 13.5 % 10.0-14.5 Automated blood platelet count (count/volume) 292 10*3/uL 130-400 Automated blood platelet mean volume measurement 8.9 [foz_us ] 7.4-10.4 Automated blood neutrophils/100 leukocytes 68 % 42-75 Automated blood lymphocytes/100 leukocytes 23 % 12-44 Blood monocytes/100 leukocytes 6 % 0-12 Automated blood eosinophils/100 leukocytes 3 % 0-10 Automated blood basophils/100 leukocytes 0 % 0-10 Blood neutrophils automated count (number/volume) 6.0 10*3 1.8-7.8 Blood lymphocytes automated count (number/volume) 2.1 10*3 1.0-4.0 Blood monocytes automated count (number/volume) 0.5 10*3 0.0-1.0 Automated eosinophil count 0.3 10*3/uL 0.0-0.3 Automated blood basophil count (count/volume) 0.0 10*3/uL 0.0-0.1 Comprehensive metabolic panel - 10/28/16 11:00 Serum or plasma sodium measurement (moles/volume) 143 mmol/ L 135-145 Serum or plasma potassium measurement (moles/volume) 3.9 mmol/L 3.6-5.0 Serum or plasma chloride measurement (moles/volume) 107 mmol /L 98-107 Carbon dioxide 22 mmol/L 21-32 Serum or plasma anion gap determination (moles/volume) 14 mmol/L 5-14 Serum or plasma urea nitrogen measurement (mass/volume) 11 mg/dL 7-18 Serum or plasma creatinine measurement (mass/volume) 0.90 mg /dL 0.60-1.30 Serum or plasma urea nitrogen/creatinine mass ratio 12 NRG Serum or plasma creatinine measurement with calculation of estimated glomerular filtration rate 60 NRG Serum or plasma glucose measurement (mass/volume) 137 mg/dL 70-105 Serum or plasma calcium measurement (mass/volume) 9.8 mg/dL 8.5-10.1 Serum or plasma total bilirubin measurement (mass/volume) 0.6 mg/dL 0.1-1.0 Serum or plasma alkaline phosphatase measurement (enzymatic activity/volume) 98 U/L 40-136 Serum or plasma aspartate aminotransferase measurement (enzymatic activity/ volume) 36 U/L 5-34 Serum or plasma alanine aminotransferase measurement (enzymatic activity/volume ) 32 U/L 0-55 Serum or plasma protein measurement (mass/volume) 6.6 g/dL 6.4-8.2 Serum or plasma albumin measurement (mass/volume) 4.1 g/dL 3.2-4.5 Lipase - 10/28/16 11:00 Lipase 31 U/L 8-78 Complete urinalysis with reflex to culture - 10/28/16 12:04 Urine color determination YELLOW NRG Urine clarity determination CLEAR NRG Urine pH measurement by test strip 6.5 5 -9 Specific gravity of urine by test strip 1.010 1.016-1.022 Urine protein assay by test strip, semi-quantitative 1+ NEGATIVE Urine glucose detection by automated test strip 4+ NEGATIVE Erythrocytes detection in urine sediment by light microscopy 1+ NEGATIVE Urine ketones detection by automated test strip 1+ NEGATIVE Urine nitrite detection by test strip POSITIVE NEGATIVE Urine total bilirubin detection by test strip NEGATIVE NEGATIVE Urine urobilinogen measurement by automated test strip (mass/volume) NORMAL NORMAL Urine leukocyte esterase detection by dipstick 2+ NEGATIVE Automated urine sediment erythrocyte count by microscopy (number/high power field) [HPF] NRG Automated urine sediment leukocyte count by microscopy (number/high power field ) [HPF] NRG Bacteria detection in urine sediment by light microscopy NEGATIVE NRG Squamous epithelial cells detection in urine sediment by light microscopy RARE NRG Crystals detection in urine sediment by light microscopy NONE NRG Casts detection in urine sediment by light microscopy NONE NRG Mucus detection in urine sediment by light microscopy NEGATIVE NRG Complete urinalysis with reflex to culture YES NRG Bacterial urine culture - 10/28/16 12:04 Bacterial urine culture NG NRG Capillary blood glucose measurement by glucometer (mass/volume) - 11/07/16 16: 13 Capillary blood glucose measurement by glucometer (mass/volume) 101 mg/dL 70-110 Methicillin resistant Staphylococcus aureus (MRSA) screening culture - 06:14 Methicillin resistant Staphylococcus aureus (MRSA) screening culture NEG NRG Capillary blood glucose measurement by glucometer (mass/volume) - 11/16/16 06: 36 Capillary blood glucose measurement by glucometer (mass/volume) 150 mg/dL 70-110 Capillary blood glucose measurement by glucometer (mass/volume) - 11/16/16 08: 16 Capillary blood glucose measurement by glucometer (mass/volume) 119 mg/dL 70-110 Complete urinalysis with reflex to culture - 11/16/16 18:00 Urine color determination YELLOW NRG Urine clarity determination SLIGHTLY CLOUDY NRG Urine pH measurement by test strip 5 5- 9 Specific gravity of urine by test strip 1.010 1.016-1.022 Urine protein assay by test strip, semi-quantitative 2+ NEGATIVE Urine glucose detection by automated test strip NEGATIVE NEGATIVE Erythrocytes detection in urine sediment by light microscopy 5+ NEGATIVE Urine ketones detection by automated test strip NEGATIVE NEGATIVE Urine nitrite detection by test strip NEGATIVE NEGATIVE Urine total bilirubin detection by test strip NEGATIVE NEGATIVE Urine urobilinogen measurement by automated test strip (mass/volume) NORMAL NORMAL Urine leukocyte esterase detection by dipstick 2+ NEGATIVE Automated urine sediment erythrocyte count by microscopy (number/high power field) [HPF] NRG Automated urine sediment leukocyte count by microscopy (number/high power field ) [HPF] NRG Bacteria detection in urine sediment by light microscopy FEW NRG Squamous epithelial cells detection in urine sediment by light microscopy 0-2 NRG Crystals detection in urine sediment by light microscopy PRESENT NRG Casts detection in urine sediment by light microscopy NONE NRG Mucus detection in urine sediment by light microscopy NEGATIVE NRG Complete urinalysis with reflex to culture YES NRG Amorphous sediment detection in urine sediment by light microscopy MOD SUSSY URATES NRG Bacterial urine culture - 11/16/16 18:00 Bacterial urine culture NG NRG Complete blood count (CBC) with automated white blood cell (WBC) differential - 11/16/16 18:14 Blood leukocytes automated count (number/volume) 13.1 10*3/ uL 4.3-11.0 Blood erythrocytes automated count (number/volume) 4.69 10*6 /uL 4.35-5.85 Venous blood hemoglobin measurement (mass/volume) 14.5 g/dL 11.5-16.0 Blood hematocrit (volume fraction) 44 % 35-52 Automated erythrocyte mean corpuscular volume 93 [foz_us] 80-99 Automated erythrocyte mean corpuscular hemoglobin (mass per erythrocyte) 31 pg 25-34 Automated erythrocyte mean corpuscular hemoglobin concentration measurement ( mass/volume) 33 g/dL 32-36 Automated erythrocyte distribution width ratio 12.9 % 10.0-14.5 Automated blood platelet count (count/volume) 298 10*3/uL 130-400 Automated blood platelet mean volume measurement 9.0 [foz_us ] 7.4-10.4 Automated blood neutrophils/100 leukocytes 80 % 42-75 Automated blood lymphocytes/100 leukocytes 12 % 12-44 Blood monocytes/100 leukocytes 6 % 0-12 Automated blood eosinophils/100 leukocytes 2 % 0-10 Automated blood basophils/100 leukocytes 0 % 0-10 Blood neutrophils automated count (number/volume) 10.5 10*3 1.8-7.8 Blood lymphocytes automated count (number/volume) 1.6 10*3 1.0-4.0 Blood monocytes automated count (number/volume) 0.8 10*3 0.0-1.0 Automated eosinophil count 0.2 10*3/uL 0.0-0.3 Automated blood basophil count (count/volume) 0.0 10*3/uL 0.0-0.1 Comprehensive metabolic panel - 11/16/16 18:14 Serum or plasma sodium measurement (moles/volume) 137 mmol/ L 135-145 Serum or plasma potassium measurement (moles/volume) 4.5 mmol/L 3.6-5.0 Serum or plasma chloride measurement (moles/volume) 100 mmol /L 98-107 Carbon dioxide 25 mmol/L 21-32 Serum or plasma anion gap determination (moles/volume) 12 mmol/L 5-14 Serum or plasma urea nitrogen measurement (mass/volume) 15 mg/dL 7-18 Serum or plasma creatinine measurement (mass/volume) 1.21 mg /dL 0.60-1.30 Serum or plasma urea nitrogen/creatinine mass ratio 12 NRG Serum or plasma creatinine measurement with calculation of estimated glomerular filtration rate 43 NRG Serum or plasma glucose measurement (mass/volume) 135 mg/dL 70-105 Serum or plasma calcium measurement (mass/volume) 9.3 mg/dL 8.5-10.1 Serum or plasma total bilirubin measurement (mass/volume) 0.5 mg/dL 0.1-1.0 Serum or plasma alkaline phosphatase measurement (enzymatic activity/volume) 93 U/L 40-136 Serum or plasma aspartate aminotransferase measurement (enzymatic activity/ volume) 47 U/L 5-34 Serum or plasma alanine aminotransferase measurement (enzymatic activity/volume ) 44 U/L 0-55 Serum or plasma protein measurement (mass/volume) 6.6 g/dL 6.4-8.2 Serum or plasma albumin measurement (mass/volume) 3.9 g/dL 3.2-4.5 Complete blood count (CBC) with automated white blood cell (WBC) differential - 11/17/16 05:32 Blood leukocytes automated count (number/volume) 10.9 10*3/ uL 4.3-11.0 Blood erythrocytes automated count (number/volume) 4.27 10*6 /uL 4.35-5.85 Venous blood hemoglobin measurement (mass/volume) 13.1 g/dL 11.5-16.0 Blood hematocrit (volume fraction) 39 % 35-52 Automated erythrocyte mean corpuscular volume 92 [foz_us] 80-99 Automated erythrocyte mean corpuscular hemoglobin (mass per erythrocyte) 31 pg 25-34 Automated erythrocyte mean corpuscular hemoglobin concentration measurement ( mass/volume) 33 g/dL 32-36 Automated erythrocyte distribution width ratio 12.6 % 10.0-14.5 Automated blood platelet count (count/volume) 275 10*3/uL 130-400 Automated blood platelet mean volume measurement 9.7 [foz_us ] 7.4-10.4 Automated blood neutrophils/100 leukocytes 90 % 42-75 Automated blood lymphocytes/100 leukocytes 10 % 12-44 Blood monocytes/100 leukocytes 1 % 0-12 Automated blood eosinophils/100 leukocytes 0 % 0-10 Automated blood basophils/100 leukocytes 0 % 0-10 Blood neutrophils automated count (number/volume) 9.7 10*3 1.8-7.8 Blood lymphocytes automated count (number/volume) 1.1 10*3 1.0-4.0 Blood monocytes automated count (number/volume) 0.1 10*3 0.0-1.0 Automated eosinophil count 0.0 10*3/uL 0.0-0.3 Automated blood basophil count (count/volume) 0.0 10*3/uL 0.0-0.1 Comprehensive metabolic panel - 11/17/16 05:32 Serum or plasma sodium measurement (moles/volume) 137 mmol/ L 135-145 Serum or plasma potassium measurement (moles/volume) 4.3 mmol/L 3.6-5.0 Serum or plasma chloride measurement (moles/volume) 104 mmol /L 98-107 Carbon dioxide 22 mmol/L 21-32 Serum or plasma anion gap determination (moles/volume) 11 mmol/L 5-14 Serum or plasma urea nitrogen measurement (mass/volume) 15 mg/dL 7-18 Serum or plasma creatinine measurement (mass/volume) 1.12 mg /dL 0.60-1.30 Serum or plasma urea nitrogen/creatinine mass ratio 13 NRG Serum or plasma creatinine measurement with calculation of estimated glomerular filtration rate 47 NRG Serum or plasma glucose measurement (mass/volume) 264 mg/dL 70-105 Serum or plasma calcium measurement (mass/volume) 8.9 mg/dL 8.5-10.1 Serum or plasma total bilirubin measurement (mass/volume) 0.3 mg/dL 0.1-1.0 Serum or plasma alkaline phosphatase measurement (enzymatic activity/volume) 86 U/L 40-136 Serum or plasma aspartate aminotransferase measurement (enzymatic activity/ volume) 28 U/L 5-34 Serum or plasma alanine aminotransferase measurement (enzymatic activity/volume ) 38 U/L 0-55 Serum or plasma protein measurement (mass/volume) 5.8 g/dL 6.4-8.2 Serum or plasma albumin measurement (mass/volume) 3.4 g/dL 3.2-4.5 Capillary blood glucose measurement by glucometer (mass/volume) - 11/17/16 11: 12 Capillary blood glucose measurement by glucometer (mass/volume) 241 mg/dL 70-110 Capillary blood glucose measurement by glucometer (mass/volume) - 11/17/16 16: 42 Capillary blood glucose measurement by glucometer (mass/volume) 244 mg/dL 70-110 Capillary blood glucose measurement by glucometer (mass/volume) - 11/17/16 21: 30 Capillary blood glucose measurement by glucometer (mass/volume) 220 mg/dL 70-110 Capillary blood glucose measurement by glucometer (mass/volume) - 11/18/16 05: 38 Capillary blood glucose measurement by glucometer (mass/volume) 189 mg/dL 70-110 Capillary blood glucose measurement by glucometer (mass/volume) - 11/18/16 09: 57 Capillary blood glucose measurement by glucometer (mass/volume) 156 mg/dL 70-110 THYROID STIMULATING HORMONE - 11/28/16 14:49 THYROID STIMULATING HORMONE 0.70 u[iU]/mL 0.35-4.94 Thyroxine (T4) measurement - 11/28/16 14:49 T4 (thyroxine) 13.9 % 5.5-12.0 Complete blood count (CBC) with automated white blood cell (WBC) differential - 02/22/17 21:10 Blood leukocytes automated count (number/volume) 10.6 10*3/ uL 4.3-11.0 Blood erythrocytes automated count (number/volume) 4.55 10*6 /uL 4.35-5.85 Venous blood hemoglobin measurement (mass/volume) 13.3 g/dL 11.5-16.0 Blood hematocrit (volume fraction) 40 % 35-52 Automated erythrocyte mean corpuscular volume 89 [foz_us] 80-99 Automated erythrocyte mean corpuscular hemoglobin (mass per erythrocyte) 29 pg 25-34 Automated erythrocyte mean corpuscular hemoglobin concentration measurement ( mass/volume) 33 g/dL 32-36 Automated erythrocyte distribution width ratio 13.2 % 10.0-14.5 Automated blood platelet count (count/volume) 294 10*3/uL 130-400 Automated blood platelet mean volume measurement 9.3 [foz_us ] 7.4-10.4 Automated blood neutrophils/100 leukocytes 63 % 42-75 Automated blood lymphocytes/100 leukocytes 27 % 12-44 Blood monocytes/100 leukocytes 7 % 0-12 Automated blood eosinophils/100 leukocytes 3 % 0-10 Automated blood basophils/100 leukocytes 0 % 0-10 Blood neutrophils automated count (number/volume) 6.7 10*3 1.8-7.8 Blood lymphocytes automated count (number/volume) 2.8 10*3 1.0-4.0 Blood monocytes automated count (number/volume) 0.7 10*3 0.0-1.0 Automated eosinophil count 0.3 10*3/uL 0.0-0.3 Automated blood basophil count (count/volume) 0.0 10*3/uL 0.0-0.1 Whole blood basic metabolic panel - 02/22/17 21:10 Serum or plasma sodium measurement (moles/volume) 140 mmol/ L 135-145 Serum or plasma potassium measurement (moles/volume) 4.0 mmol/L 3.6-5.0 Serum or plasma chloride measurement (moles/volume) 106 mmol /L 98-107 Carbon dioxide 22 mmol/L 21-32 Serum or plasma anion gap determination (moles/volume) 12 mmol/L 5-14 Serum or plasma urea nitrogen measurement (mass/volume) 16 mg/dL 7-18 Serum or plasma creatinine measurement (mass/volume) 1.13 mg /dL 0.60-1.30 Serum or plasma urea nitrogen/creatinine mass ratio 14 NRG Serum or plasma creatinine measurement with calculation of estimated glomerular filtration rate 46 NRG Serum or plasma glucose measurement (mass/volume) 160 mg/dL 70-105 Serum or plasma calcium measurement (mass/volume) 10.0 mg/ dL 8.5-10.1 Erythrocyte sedimentation rate by westergren method - 02/22/17 21:10 Erythrocyte sedimentation rate by westergren method 10 mm 0-30 Capillary blood glucose measurement by glucometer (mass/volume) - 03/20/17 09: 14 Capillary blood glucose measurement by glucometer (mass/volume) 134 mg/dL 70-110 Encounters ACCT No. Visit Date/Time Discharge Status Pt. Type Provider Facility Loc./Unit Complaint [id number] 03/20/2017 08:41:00 2016 11:50:00 DIS Outpatient DIANE PORTILLO MD [facility] ENDO ULCER [id number] 03/17/2017 05:50:00 2016 11:28:00 DIS Outpatient DIANE OPRTILLO MD [facility] PREOP ULCERS [id number] 02/22/2017 20:10:00 2016 23:30:00 DIS Emergency LOPEZ KEE LAST INSERTER [facility] ER LEFT SIDE FACE PAIN [id number] 11/28/2016 14:37:00 2016 00:01:00 DIS Outpatient JOYCE MONAE APRN [facility] LAB ACUTE DIARRHEA,VOMITING [id number] 11/16/2016 20:06:00 2016 10:25:00 DIS Inpatient MUNIR ROCHE MD [facility] 4TH POST OP PAIN,BLADDER LEAKAGE EXTRAPERITONEAL [id number] 11/16/2016 05:58:00 2016 12:30:00 DIS Outpatient MUNIR ROCHE MD [facility] BLADDER TUMOR [id number] 11/15/2016 12:40:00 2016 12:53:00 DIS Outpatient MUNIR ROCHE MD [facility] PREOP BLADDER TUMOR [id number] 11/07/2016 13:01:00 2016 17:26:00 DIS Emergency NATHAN URIAS [facility] ER CONGESTION, WELTS, CONFUSION [id number] 10/28/2016 10:56:00 2015 12:25:00 DIS Emergency LOPEZ KEE APRN [facility] ER DIARRHEA [id number] 10/27/2016 11:12:00 2015 14:53:00 DIS Emergency GRIFFIN FAYE [facility] ER DIARRHEA/WEAKNESS [id number] 10/17/2016 09:52:00 2015 13:20:00 DIS Outpatient LINDSEY RAHMAN, DIANE Alejo [facility] UPPER GASTRIC PAIN [id number] 05/19/2016 14:20:00 2015 17:21:00 DIS Emergency JUDITH HINES MD [facility] ER CONSTIPATION/ABD PAIN [id number] 11/13/2015 10:21:00 2015 08:50:00 DIS Inpatient FAIZAN RAHMAN, ALLISON Pan [facility] 4TH Volume Depletion,Vomiting,Diarrhea [id number] 11/08/2015 13:34:00 2015 16:55:00 DIS Emergency LIA RAHMAN, CARLTON Padilla [facility] ER POST OP/DIGESTION ISSUES/VOMITING [id number] 10/11/2015 08:25:00 2014 17:33:00 DIS Inpatient ALBERTO NAZARIO MD [facility] 4TH POST OP HYPOXIA [id number] 09/15/2015 10:36:00 2014 23:59:59 CLS Outpatient ALLISON GLORIA MD [facility] SDC ANEMIA BLOOD LOSS [id number] 09/03/2015 10:18:00 2014 09:00:00 DIS Inpatient ALLISON GLORIA MD [facility] 4TH ABD PAIN,FEVER,ANEMIA [id number] 09/01/2015 12:02:00 2014 23:59:59 CLS Outpatient ALLISON GLORIA MD [facility] RAD PESISTANT DIARRHEA AND VOMITTING [id number] 09/01/2015 11:26:00 2014 23:59:59 CLS Outpatient ALLISON GLORIA MD [facility] LAB PERSISTENT DIARRHEA,VOMITTING [id number] 08/21/2015 10:31:00 2014 23:59:59 CLS Outpatient JACQUELIN RAHMAN FACC, ALI FACP CCDS [facility] CARD CAD,FATIGUE [id number] 08/18/2015 12:05:00 2014 23:59:59 CLS Outpatient JACQUELIN RAHMAN FACEllen, ALI FACP CCDS [facility] CARD CAD,FATIGUE [id number] 04/02/2015 14:52:00 2014 23:59:59 CLS Outpatient ALLISON GLORIA MD [facility] RAD L MID/LOWER BACK PAIN [id number] 03/23/2015 14:00:00 2014 16:59:00 DIS Emergency NATHAN URIAS [facility] ER UPPER LEFT BACK PAIN [id number] 11/05/2014 09:50:00 2014 12:45:00 DIS Outpatient ALBERTO NAZARIO MD [facility] SDC REFLUX [id number] 10/31/2014 06:08:00 2014 23:59:59 CLS Outpatient ALBERTO NAZARIO MD [facility] PREOP REFLUX [id number] 08/05/2014 07:49:00 2013 16:55:00 DIS Outpatient JACQUELIN RAHMAN FACEllen, ALI FACP CCDS [facility] CATH EXERTIONAL DSYPNEA,CAD,DM [id number] 05/16/2014 11:19:00 2013 23:59:59 CLS Outpatient ALLISON GLORIA MD [facility] RAD SCREENING [id number] 01/22/2014 07:30:00 2013 12:00:00 DIS Outpatient ALBERTO NAZARIO MD [facility] SDC HISTORY OF POLYPS [id number] 01/15/2014 07:31:00 2013 23:59:59 CLS Outpatient ALBERTO NAZARIO MD [facility] PREOP HISTORY OF POLYPS [id number] 10/03/2013 13:09:00 2012 16:05:00 DIS Emergency DONNY RAHMAN, JUDITH Longoria [facility] ER WEAKNESS [id number] 05/06/2013 09:21:00 2012 23:59:59 CLS Outpatient NEEMA HENSLEY [facility] CARD CAD,DYSPNEA [id number] 04/18/2013 14:55:00 2012 23:59:59 CLS Outpatient KAYLEIGH RAHMAN, FELIBERTO Chow [facility] RAD LFT SI DSYFUNCTION [id number] 01/27/2017 00:10:00 PEN Preadmit JOYCE MONAE APRN [facility] LAB ACUTE DIARRHEA,VOMITING [id number] 12/05/2016 13:39:00 ACT Outpatient ALLISON GLORIA MD [facility] RAD GOITER DIFFUSE,NON TOXIC [id number] 11/28/2016 14:24:00 ACT Outpatient ALLISON GLORIA MD [facility] LAB GOITER DIFFUSE,NONTOXIC [id number] 10/13/2016 05:56:00 ACT Outpatient LINDSEY RAHMAN, DIANE Alejo [facility] PREOP UPPER GASTRIC PAIN [id number] 10/11/2016 07:58:00 ACT Outpatient JACQUELIN RAHMAN FACCJAZMIN FACP CCDS [facility] CARD CAD,CAROTID ARTERIAL DISEASE,HLP,GERD [id number] 11/30/2015 00:00:00 Document Registration [id number] 10/06/2015 08:41:00 ACT Outpatient ALBERTO NAZARIO MD [facility] PREOP HEMORRHOIDS [id number] 07/26/2012 15:08:00 Document Registration [id number] 12/30/2011 16:49:00 Document Registration [id number] 10/24/2011 21:30:00 Document Registration [id number] 10/17/2011 05:40:00 Document Registration [id number] 10/11/2011 12:19:00 Document Registration [id number] 08/30/2011 08:54:00 Document Registration [id number] 03/24/2011 12:50:00 Document Registration [id number] 01/14/2011 15:04:00 Document Registration [id number] 01/07/2011 10:59:00 Document Registration [id number] 11/20/2010 18:40:00 Document Registration [id number] 09/15/2010 07:20:00 Document Registration
[2017-04-28] MEDS ORDERED: NS 100 ML (IVPB) BAG IV ONE (01:00)
[2017-04-28] MEDS ORDERED: IOHEXOL 350 MG/ML 100 ML (OMNIPAQUE 350) VIAL IV ONE (01:00)
--- NOTE | 2017-04-28 01:08 | ED Abdominal Pain ---
General Chief Complaint: Abdominal/GI Problems Stated Complaint: VOMITTING/WEAKNESS Nursing Triage Note: c/o n/v Sepsis Screen: No Definite Risk Source of Information: Patient Exam Limitations: No Limitations History of Present Illness Time Seen By Provider: 23:03 Initial Comments This 82-year-old woman presents to the emergency room with complaints of abdominal pain and vomiting. She has not been feeling well all day. Around dinnertime at about 17:00 she began vomiting. Her pain extends from the umbilicus up through the lower chest. She rates the pain as 6/10. She reports having frequent mucousy soft stools but no diarrhea or constipation. She feels chilled but has no fever. Dr. Loyola is her primary care provider Dr. Tejeda is her social media director. Allergies and Home Medications Allergies Coded Allergies: metronidazole (Verified Allergy, Intermediate, hives, 03/17/17) Sulfa (Sulfonamide Antibiotics) (Verified Allergy, Unknown, 03/20/17) ciprofloxacin (Verified Allergy, Unknown, ITCHING, 03/17/17) Home Medications Acetaminophen 500 Mg Tablet, 1,000 MG PO Q6H PRN for PAIN, (Reported) TAKES 2 (500MG) TABLETS Atorvastatin Calcium 40 Mg Tablet, 40 MG PO DAILY, (Reported) Cholecalciferol (Vitamin D3) 2,000 Unit Capsule, 2,000 UNIT PO BID, (Reported) Estrogens Conjugated 30 Gm Cr, 0.5 GM VG RAJAN,WE, (Reported) Insulin Aspart 100 Unit/1 Ml Susp, 2 UNIT SQ BID WITH MEALS, (Reported) TAKES WITH MORNING AND EVENING MEAL Lactobacillus Acidophilus 1 Each Capsule, 1 CAP PO BID, (Reported) Melatonin 3 Mg Tab.rapdis, 6 MG PO HS, (Reported) TAKES 2 (3MG) TABLETS Pantoprazole Sodium 40 Mg Tablet., #90 (Reported) Temazepam 30 Mg Capsule, 30 MG PO HS, (Reported) Tramadol HCl 50 Mg Tablet, 50 MG PO PRN, (Reported) Review of Systems Constitutional: see HPI EENTM: No Symptoms Reported Respiratory: No Symptoms Reported Cardiovascular: See HPI Gastrointestinal: See HPI Genitourinary: No Symptoms Reported Musculoskeletal: no symptoms reported Skin: no symptoms reported Psychiatric/Neurological: No Symptoms Reported Endocrine: No Symptoms Reported Hematologic/Lymphatic: No Symptoms Reported Past Jledoqp-Qnkmqk-Etkcoy Hx Patient Social History Alcohol Use: Denies Use Recreational Drug Use: No Smoking Status: Former Smoker Type Used: Cigarettes Former Smoker/When Quit: Oct 30, 1999 2nd Hand Smoke Exposure: No Recent Foreign Travel: No Contact w/Someone Who Travel: No Recent Infectious Disease Expo: No Recent Hopitalizations: No Immunizations Up To Date Tetanus Booster (TDap): Unknown PED Vaccines UTD: No Date of Pneumonia Vaccine: May 17, 2016 Date of Influenza Vaccine: Aug 17, 2016 Seasonal Allergies Seasonal Allergies: No Surgeries HX Surgeries: Yes (BACK, HAD TO HAVE 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) Surgeries: Appendectomy, Bladder Surgery, Coronary Stent, Gallbladder, Hysterectomy, Vascular Surgery Respiratory Hx Respiratory Disorders: Yes (IS TO HAVE A SLEEP STUDY) Respiratory Disorders: Pneumonia Cardiovascular Hx Cardiac Disorders: Yes (STENTS, 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) Cardiac Disorders: Coronary Artery Disease, High Cholesterol, Hypertension, Peripheral Vascular Neurological Hx Neurological Disorders: No Reproductive System Hx Reproductive Disorders: Yes Sexually Transmitted Disease: No HIV/AIDS: No Female Reproductive Disorders: Denies Genitourinary Hx Genitourinary Disorders: Yes Genitourinary Disorders: Bladder Infection, UTI-Chronic Gastrointestinal Hx Gastrointestinal Disorders: Yes Gastrointestinal Disorders: Gastroesophageal Reflux, Chronic Constipation, Diverticulosis, Hemorrhoids, Polyps Musculoskeletal Hx Musculoskeletal Disorders: Yes Musculoskeletal Disorders: Arthritis, Chronic Back Pain Endocrine Hx Endocrine Disorders: Yes (multinodular goiter) Endocrine Disorders: Diabetes, Non-Insulin dep HEENT HX ENT Disorders: Yes (GLASSES) Loss of Vision: Bilateral Hearing Impairment: Denies Cancer Hx Cancer: No Psychosocial Hx Psychiatric Problems: No (IN THE PAST) Behavioral Health Disorders: Depression Integumentary HX Skin/Integumentary Disorder: Yes (OCCASIONALLY) Skin/Integumentary Disorders: Psoriasis Blood Transfusions Hx Blood Disorders: Yes (ANEMIA-FROM HEMORRHOIDS) Adverse Reaction to a Blood Tr: No (HAS HAD BLOOD TRANSFUSION WITH NO DIFFICULTY) Family Medical History Significant Family History: No Pertinent Family Hx Family Medial History: Cancer of mouth Diabetes mellitus 19 FATHER Dysphasia G8 SISTER FH: thyroid cancer Myocardial infarction 19 FATHER Physical Exam Vital Signs VS - Last 72 Hours, by Label 04/27/17 23:11 Temp 98.1 Pulse 85 Resp 27 B/P (MAP) 112/87 Pulse Ox 99 Capillary Refill : Less Than 3 Seconds General Appearance: WD/WN, mild distress HEENT: PERRL/EOMI, normal ENT inspection, pharynx normal Neck: normal inspection Respiratory: lungs clear, normal breath sounds, no respiratory distress, no accessory muscle use Cardiovascular: regular rate, rhythm, no edema, no murmur Gastrointestinal: normal bowel sounds, soft, tenderness (mid abdomen around the umbilicus extending up to the epigastric region) Extremities: normal inspection, no pedal edema Neurologic/Psychiatric: telemetry rn II-XII nml as tested, no motor/sensory deficits, alert, normal mood/affect, oriented x 3 Skin: normal color, warm/dry Progress/Results/Core Measures Results/Orders Lab Results Laboratory Tests Test 04/27/17 01:10 04/27/17 22:30 04/27/17 23:00 Range/Units Urine Color YELLOW Urine Clarity CLEAR Urine pH 6 5-9 Urine Specific [place] 1.005 L 1.016-1.022 Urine Protein 1+ H NEGATIVE Urine Glucose (UA) NEGATIVE NEGATIVE Urine Ketones NEGATIVE NEGATIVE Urine Nitrite NEGATIVE NEGATIVE Urine Bilirubin NEGATIVE NEGATIVE Urine Urobilinogen NORMAL NORMAL MG/DL Urine Leukocyte Esterase NEGATIVE NEGATIVE Urine RBC (Auto) NEGATIVE NEGATIVE Urine RBC NONE /HPF Urine WBC NONE /HPF Urine Squamous Epithelial Cells 5-10 /HPF Urine Crystals NONE /LPF Urine Bacteria NEGATIVE /HPF Urine Casts NONE /LPF Urine Mucus NEGATIVE /LPF Urine Culture Indicated NO Troponin I < 0.30 <0.30 NG/ML White Blood Count 12.1 H 4.3-11.0 10^3/uL Red Blood Count 4.86 4.35-5.85 10^6/uL Hemoglobin 14.3 11.5-16.0 G/DL Hematocrit 43 35-52 % Mean Corpuscular Volume 89 80-99 FL Mean Corpuscular Hemoglobin 29 25-34 PG Mean Corpuscular Hemoglobin Concent 33 32-36 G/DL Red Cell Distribution Width 13.6 10.0-14.5 % Platelet Count 292 130-400 10^3/uL Mean Platelet Volume 9.4 7.4-10.4 FL Neutrophils (%) (Auto) 81 H 42-75 % Lymphocytes (%) (Auto) 10 L 12-44 % Monocytes (%) (Auto) 7 0-12 % Eosinophils (%) (Auto) 1 0-10 % Basophils (%) (Auto) 0 0-10 % Neutrophils # (Auto) 9.8 H 1.8-7.8 X 10^3 Lymphocytes # (Auto) 1.2 1.0-4.0 X 10^3 Monocytes # (Auto) 0.9 0.0-1.0 X 10^3 Eosinophils # (Auto) 0.2 0.0-0.3 10^3/uL Basophils # (Auto) 0.0 0.0-0.1 10^3/uL Sodium Level 141 135-145 MMOL/L Potassium Level 4.0 3.6-5.0 MMOL/L Chloride Level 104 98-107 MMOL/L Carbon Dioxide Level 21 21-32 MMOL/L Anion Gap 16 H 5-14 MMOL/L Blood Urea Nitrogen 16 7-18 MG/DL Creatinine 0.99 0.60-1.30 MG/DL Estimat Glomerular Filtration Rate 54 BUN/Creatinine Ratio 16 Glucose Level 170 H 70-105 MG/DL Calcium Level 10.0 8.5-10.1 MG/DL Magnesium Level 1.8 1.8-2.4 MG/DL Total Bilirubin 0.4 0.1-1.0 MG/DL Aspartate Amino Transf (AST/SGOT) 42 H 5-34 U/L Alanine Aminotransferase (ALT/SGPT) 33 0-55 U/L Alkaline Phosphatase 114 40-136 U/L Total Protein 7.3 6.4-8.2 GM/DL Albumin 4.2 3.2-4.5 GM/DL Lipase 52 8-78 U/L My Orders Orders - NOLVIA GUTIERREZ MD Saline Lock/Iv-Start (04/27/17 23:02) Cbc With Automated Diff (04/27/17 23:02) Comprehensive Metabolic Panel (04/27/17 23:02) Ua Culture If Indicated (04/27/17 23:02) Lipase (04/27/17 23:03) Magnesium (04/27/17 23:03) Ondansetron Injection (Zofran Injectio (04/27/17 23:21) Ns Iv 1000 Ml (Sodium Chloride 0.9%) (04/27/17 23:21) Fentanyl Injection (Sublimaze Injection (04/28/17 00:00) Famotidine Injection (Pepcid Injection) (04/28/17 00:00) Ekg Tracing (04/27/17 23:54) Monitor-Rhythm Ecg Trace Only (04/27/17 23:54) Troponin I (04/27/17 23:54) Ct Chest/Abdomen/Pelvis W (04/28/17 00:10) Iohexol Injection (Omnipaque 350 Mg/Ml 1 (04/28/17 01:00) Ns (Ivpb) (Sodium Chloride 0.9% Ivpb Bag (04/28/17 01:00) Rx-Ondansetron Po (Rx-Zofran Po) (04/28/17 01:49) Medications Given in ED Current Medications Medications Dose Ordered Sig/Miri Route Start Time Stop Time Status Last Admin Dose Admin Famotidine 20 mg ONCE ONCE IVP 04/28/17 00:00 04/28/17 00:01 DC 04/28/17 00:03 20 MG Fentanyl Citrate 25 mcg ONCE ONCE IVP 04/28/17 00:00 04/28/17 00:01 DC 04/28/17 00:03 25 MCG Iohexol 100 ml ONCE ONCE IV 04/28/17 01:00 04/28/17 01:34 DC 04/28/17 00:53 100 ML Ondansetron HCl 4 mg STK-MED ONCE .ROUTE 04/27/17 23:21 04/27/17 23:26 DC 04/27/17 23:26 4 MG Sodium Chloride 80 ml ONCE ONCE IV 04/28/17 01:00 04/28/17 01:34 DC 04/28/17 00:53 80 ML Sodium Chloride 1,000 ml @ STK-MED ONCE .ROUTE 04/27/17 23:21 04/27/17 23:26 DC 04/27/17 23:27 0 MLS/HR Vital Signs/I&O Vital Sign - Last 12Hours 04/27/17 23:11 Temp 98.1 Pulse 85 Resp 27 B/P (MAP) 112/87 Pulse Ox 99 Blood Pressure Mean: 95 Progress Note #1: Time: 01:10 Progress Note Patient received Zofran for nausea. Abdominal pain was treated with fentanyl 25 g IV and Pepcid 20 mg IV. IV fluids are infusing. CT of the abdomen and pelvis was obtained and results are pending. UA results are also pending. Patient is feeling significantly improved at this time other than persistent chills. Progress Note #2: Time: 01:53 Progress Note Patient is feeling much better. There is no significant abnormality on the CT report. We discussed the lung lesion which was also present 2015. Patient is to follow-up with her primary care provider. Patient is being dismissed with a take-home packet of Zofran. ECG Initial ECG Impression Date: Apr 28, 2017 Initial ECG Impression Time: 00:06 Initial ECG Rate: 89 Initial ECG Rhythm: Normal Sinus Initial ECG Intervals: Normal Initial ECG Impression: Normal Comment Normal sinus rhythm with no ST elevation or depression. No abnormal intervals or axis deviation. Diagnostic Imaging Diagonstic Imaging: CT Plain Films/CT/US/NM/MRI: chest, abdomen, pelvis Comments CT chest, abdomen and pelvis viewed by me and [facility] report reviewed there is a right middle lobe 2 cm mass. This was compared with CT from 2015. A similar mass was present at that time. No other significant abnormalities within the chest. Abdomen showed fatty liver and status post cholecystectomy. There is a peripelvic renal cyst. No other acute abnormalities to explain her abdominal pain. Departure Impression Impression: Primary Impression: Nausea and vomiting Qualified Codes: R11.2 - Nausea with vomiting, unspecified Additional Impressions: Generalized abdominal pain Chest pain Qualified Codes: R07.9 - Chest pain, unspecified Lesion of lung Disposition: HOME, SELF-CARE Condition: Improved Departure-Patient Inst. Decision time for Depature: 01:50 Referrals: ALLISON LOYOLA MD (PCP/Family) Primary Care Physician Patient Instructions: Acute Abdomen (Belly Pain), Adult (DC) Add. Discharge Instructions: Drink plenty of clear liquids. Gradually advance your diet with small quantities of bland food as tolerated. You may dissolve Zofran (ondansetron) under the tongue every 4 hours as needed for nausea and vomiting. You may take Tylenol up to 1000 mg every 6 hours as needed for pain. Return to the emergency room if symptoms worsen. Please follow-up with your primary care provider to review results of the CT scan. In particular you should discuss the lung lesion identified in 2015 and again on your CT scan from today. All discharge instructions reviewed with patient and/or family. Voiced understanding. Copy Copies To 1: ALLISON LOYOLA MD, JOSHUA T MD Apr 28, 2017 01:08
[2017-04-28 01:20] LABS: BILIRUBIN,URINE NEGATIVE (NEGATIVE); KETONES,URINE NEGATIVE (NEGATIVE); LEUKOCYTE ESTERASE ,URINE NEGATIVE (NEGATIVE); NITRITE,URINE NEGATIVE (NEGATIVE); PH,URINE 6 (5-9); PROTEIN,URINE 1+ (NEGATIVE); UROBILINOGEN,URINE NORMAL (NORMAL)
[2017-04-28] MEDS ORDERED: RX-ONDANSETRON 4 MG ODT (ZOFRAN) PPK #4 SL STA (01:49)
[2017-04-28 02:03] VITALS: BP 123/63
--- NOTE | 2017-04-28 09:25 | Diagnostic Imaging Report ---
PROCEDURE: CT chest, abdomen, and pelvis with contrast. TECHNIQUE: Multiple contiguous axial images were obtained through the chest, abdomen, and pelvis after the administration of intravenous contrast. INDICATION: Nausea and vomiting. FINDINGS: CT chest: There is a 2.1 cm suspicious pulmonary nodule seen in the posterior upper aspect of the lateral segment of the right middle lobe. This is the abutting the major fissure and is very close to the lateral pleural surface. The appearance is concerning for neoplastic etiology. The same area in September 01, 2015 exam appears to have a nonspecific linear thickening which appears significantly worse at this time. It is uncertain if the pre-existing abnormality was neoplastic based on its morphology, however the current time nodule is suspicious for a neoplasm. There is no other pulmonary nodule, significant consolidation or mass identified. PET/CT evaluation is suggested. The mediastinum demonstrate no mass or significantly enlarged lymph node. No hilar lymphadenopathy. No axillary lymphadenopathy. There is a 1.5 cm hypodense nodule in the left thyroid lobe compared to 1.3 CM and 2015. This is probably a benign nodule suggested on thyroid ultrasound of 12/05/16. The heart size is normal. The thoracic aorta is normal in caliber. There is no pericardial or pleural effusion. The osseous structures demonstrate degenerative changes. CT abdomen and pelvis: There is a hepatic steatosis. The liver is also mildly enlarged. Cholecystectomy clips are present. The spleen isn't enlarged. The pancreas and the adrenals appear unremarkable. The kidneys have symmetric enhancement and contrast excretion. There is no hydronephrosis. The abdominal aorta is normal in caliber. No para-aortic significantly enlarged lymph nodes seen. There is no bowel obstruction. There is suggestion of prior hysterectomy. The supraumbilical aspect of the abdominal wall demonstrates a tiny fat-containing ventral hernia. There is no free fluid or fluid collection of significance in the abdomen. There is a compression fracture of L2 level that appears similar to 11/16/2016 suggestive of chronicity. IMPRESSION: CT chest: Suspicious 2.1 cm right middle lobe pulmonary nodule. Further evaluation with PET/CT is recommended. CT abdomen and pelvis: 1. Enlarged fatty liver with no focal mass. 2. Tiny supraumbilical fat-containing ventral hernia. The findings of a 2.1 cm pulmonary nodule was called to Dr. Judd at 7:30 AM. Based on the notes from Dr. Workman visit with the patient earlier this morning, Dr. Workman has noticed the mass that is also mentioned in the [facility] report and has discussed and informed the patient of this lesion. He recommended followup and further management of the mass with the primary care physician. Dictated by: Dictated on workstation # [id number]
== END 2017-04-28 02:02 | disposition home or self-care (01) ==
LOC: EDUNIT# 22:59 → ER 23:01
DX: R11.2 Nausea with vomiting, unspecified (principal); R10.84 Generalized abdominal pain; R07.9 Chest pain, unspecified; I25.10 Atherosclerotic heart disease of native coronary artery without angina pectoris; E78.00 Pure hypercholesterolemia, unspecified; I10 Essential (primary) hypertension; E11.9 Type 2 diabetes mellitus without complications; I73.9 Peripheral vascular disease, unspecified; K21.9 Gastro-esophageal reflux disease without esophagitis; Z79.4 Long term (current) use of insulin; Z95.820 Peripheral vascular angioplasty status with implants and grafts
CPT/HCPCS: 36415; 71260; 74177; 80053; 81000; 83690; 83735; 84484; 85025; 93041; 96361; 96374; 96375

== ENCOUNTER → 2018-01-02 | Outpatient (CLI) | payer MEDICARE, OTHER ==
[~2018-01-02] MED LIST changes: +HYDR-34 PO; -HYDR-3816 PO
== END ==
LOC: LAB 09:30
PROVIDERS: ATTEND Family Medicine
DX: E01.0 Iodine-deficiency related diffuse (endemic) goiter (principal)

== ENCOUNTER → 2018-01-11 | Outpatient (CLI) | payer MEDICARE, OTHER | LOC: CARD 12:46 | PROVIDERS: ATTEND Internal Medicine Cardiovascular Disease | DX: I25.10 Atherosclerotic heart disease of native coronary artery without angina pectoris (principal); E78.5 Hyperlipidemia, unspecified; E11.9 Type 2 diabetes mellitus without complications | CPT/HCPCS: 93306 ==

== ENCOUNTER → 2018-01-11 | Outpatient (CLI) | payer MEDICARE, OTHER ==
--- NOTE | 2018-01-11 16:08 | Diagnostic Imaging Report ---
PROCEDURE: US Thyroid. TECHNIQUE: Multiple real-time grayscale images were obtained of the thyroid in various projections. INDICATION: Multinodular goiter. FINDINGS: The previous thyroid ultrasound exam performed on 12/05/2016 noted that the thyroid gland was borderline enlarged and that there were multiple nodules in each lobe. This appearance is felt to be most likely secondary to a multinodular goiter. On this study, the thyroid gland remains at the upper limits of normal in size. The right lobe measures 4 x 1.8 x 1.5 cm while the left lobe is estimated to be 4.5 x 2.2 x 1.5 cm (normal gland size 4-5 x 2 x 2 cm or less). As on the previous study, there are multiple hypoechoic nodules within each lobe. Specifically, there is a 1.3 x 1.5 x 0.9 cm nodule in the inferior pole of the right lobe and a 1.4 x 1.4 x 0.9 cm nodule in the superior pole of the left lobe. Both of these nodules measure slightly smaller than on the prior exam. Conversely, there is a 2.1 x 2.7 x 2.0 cm nodule in the inferior pole of the left lobe. On the prior exam, this nodule measured 2.1 x 1.3 x 1.4 cm. In reviewing the images, I do feel that the nodule on today's exam is somewhat over measured when compared to the previous study. I am not convinced there has been a significant change in size of this nodule. Even so, I would recommend that a short-term (three-month) follow-up thyroid ultrasound exam be performed for further study. IMPRESSION: 1. There is a question that the nodule in the inferior pole of the left lobe of the thyroid is somewhat larger than on the prior exam. Recommendations as above. 2. The overall appearance of the thyroid gland has not changed adversely otherwise. Dictated by: Dictated on workstation # [id number]
== END ==
LOC: RAD 12:47
PROVIDERS: ATTEND Family Medicine
DX: E04.2 Nontoxic multinodular goiter (principal)
CPT/HCPCS: 36415; 76536; 84443

== ENCOUNTER 2018-01-16 23:52 | Inpatient (IN) | payer MEDICARE, OTHER ==
[~2018-01-16] VITALS: Ht 162.6 cm; Wt 67.6 kg
[~2018-01-16 23:52] MED LIST changes: -PANT40TA3
--- OUTSIDE RECORDS SUMMARY | 2018-01-17 00:08 | XMS REPORT | Continuity of Care Document ---
Author Author [facility] Organization [facility] Address Unknown Phone Unavailable Allergies Active Description Code Type Severity Reaction Onset Reported/Identified Relationship to Patient Clinical Status Yes metronidazole [id number] Drug Allergy Moderate hives 03/20/2017 Yes ciprofloxacin [id number] Drug Allergy Unknown ITCHING 03/20/2017 Yes Sulfa (Sulfonamide Antibiotics) [id number] Drug Allergy Unknown N/A 2016 Medications There is no data. Problems Date Dx Coded Attending Type Code [...] OF URINE NOS 10/26/2011 Ot 997.5 SURG COMPL- URINARY TRACT 10/26/2011 Ot E878.8 ABN REACT- SURG PROC NEC 12/30/2011 Ot 535.60 DUODENITIS, WITHOUT MENTION OF HEMORRHAG 12/30/2011 Ot 571.8 CHRONIC LIVER DIS NEC 12/30/2011 Ot 599.0 URIN TRACT INFECTION NOS 12/30/2011 Ot 789.09 ABDOMINAL PAIN, OTHER SPECIFIED SITE 12/30/2011 Ot V58.69 OTH MED,LT, CURRENT USE 10/03/2013 JUDITH HINES MD Ot 250.00 [...] FACP CCDS Ot 300.4 DYSTHYMIC DISORDER 08/05/2014 JACQUELIN RAHMAN FACC, JAZMIN FACP CCDS Ot 414.01 CORONARY ATHEROSCLEROSIS OF [place] CORON 08/05/2014 JAZMIN ROPER MD, FACC FACP CCDS Ot 414.4 CORONARY ATHEROSCLEROSIS DUE TO [place]CIF[place] 08/05/2014 JACQUELIN RAHMAN FACC, JAZMIN FACP CCDS Ot 786.09 RESPIRATORY ABNORM NEC 08/05/2014 JACQUELIN RAHMAN FACC, JAZMIN FACP CCDS Ot 786.59 CHEST PAIN NEC 08/05/2014 JAZMIN ROPER MD, FACC FACP CCDS Ot V45.82 PERCUTANEOUS TRANSLUM CORON ANGIOPLASTY 08/05/2014 JACQUELIN RAHMAN FACC, ALI FACP CCDS Ot V58.63 LONG-TERM(CURRENT)USE OF ANTIPLATELET/AN 08/05/2014 JACQUELIN RAHMAN FACC, ALI FACP CCDS Ot V58.69 OTH MED,LT,CURRENT USE 11/05/2014 ARAVIND RAHMAN, ALBERTO Ot 530.11 REFLUX ESOPHAGITIS 11/05/2014 ALBERTO NAZARIO [...] V74.8 08/18/2015 Ot 599.0 08/18/2015 NEEMA HENSLEY MANAGER PATHOLOGY Ot 414.00 08/18/2015 NEEMA HENSLEY MANAGER PATHOLOGY Ot 786.09 08/18/2015 KAYLEIGH RAHMAN, FELIBERTO Chow Ot 724.9 08/18/2015 ALBERTO NAZARIO MD Ot V72.84 08/18/2015 FAIZAN RAHMAN, ALLISON R Ot 611.72 08/18/2015 ALLISON GLORIA MD R Ot V76.12 08/18/2015 ALBERTO NAZARIO MD Ot V72.84 08/18/2015 ALLISON GLORIA MD R Ot 593.2 08/18/2015 FAIZAN RAHMAN ALLISON R Ot 722.52 08/20/2015 JACQUELIN RAHMAN FAC, ALI FACP CCDS Ot E11.9 08/20/2015 JACQUELIN RAHMAN FACC, ALI FACP CCDS Ot E78.5 08/20/2015 JACQUELIN RAHMAN FACC, ALI FACP CCDS Ot I25.10 08/20/2015 JACQUELIN RAHMAN FACC, ALI FACP CCDS Ot I65.29 08/20/2015 JACQUELIN RAHMAN FACC, ALI FACP CCDS Ot I73.9 08/20/2015 JACQUELIN RAHMAN FACC, ALI FACP CCDS Ot I77.9 08/20/2015 JACQUELIN RAHMAN FACC, ALI FACP CCDS Ot M54.9 08/20/2015 JACQUELIN RAHMAN FACC, ALI FACP CCDS Ot R06.09 08/20/2015 JACQUELIN RAHMAN FACC, ALI FACP CCDS Ot R53.83 09/01/2015 ALLISON GLORIA MD R Ot R11.10 09/01/2015 ALLISON GLORIA MD R Ot R19.7 09/07/2015 ALLISON GLORIA MD R Ot D50.0 IRON DEFICIENCY ANEMIA SECONDARY TO BLOO 09/07/2015 ALLISON GLORIA MD R Ot E11.9 TYPE 2 DIABETES MELLITUS WITHOUT COMPLIC 09/07/2015 ALLISON GLORIA MD R Ot E78.0 PURE HYPERCHOLESTEROLEMIA 09/07/2015 ALLISON GLORIA MD R Ot I25.10 ATHSCL HEART DISEASE OF [place] CORONARY 09/07/2015 ALLISON GLORIA MD R Ot J18.9 PNEUMONIA, UNSPECIFIED ORGANISM 09/07/2015 ALLISON GLORIA MD R Ot K21.9 GASTRO-ESOPHAGEAL REFLUX DISEASE WITHOUT 09/07/2015 ALLISON GLORIA MD R Ot K44.9 DIAPHRAGMATIC HERNIA WITHOUT OBSTRUCTION 09/07/2015 ALLISON GLORIA MD Ot K57.32 DVTRCLI OF LG INT W/O PERFORATION OR ABS 09/07/2015 ALLISON GLORIA MD R Ot K64.2 THIRD DEGREE HEMORRHOIDS 09/07/2015 ALLISON GLORIA MD R Ot T45.515A ADVERSE EFFECT OF ANTICOAGULANTS, INITIA 09/07/2015 FAIZAN RAHMAN, ALLISON R Ot Z23 ENCOUNTER FOR IMMUNIZATION 09/07/2015 [...] ALI FACP CCDS Ot R06.09 09/21/2015 JACQUELIN NORWOODC, ALI FACP CCDS Ot R53.83 09/28/2015 ALLISON GLORIA MD R Ot R11.10 09/28/2015 ALLISON GLORIA MD R Ot R19.7 10/07/2015 ALLISON GLORIA MD R Ot D50.0 10/12/2015 FAIZAN RAHMAN, ALLISON R Ot D50.0 10/12/2015 ALBERTO NAZARIO MD Ot E11.9 TYPE 2 DIABETES MELLITUS WITHOUT COMPLIC 10/12/2015 ALBERTO NAZARIO MD Ot E78.0 PURE HYPERCHOLESTEROLEMIA 10/12/2015 ALBERTO NAZARIO MD Ot I10 ESSENTIAL (PRIMARY) HYPERTENSION 10/12/2015 ALBERTO NAZARIO MD Ot I25.10 ATHSCL HEART DISEASE OF [place] CORONARY 10/12/2015 ALBERTO NAZARIO MD Ot K21.9 GASTRO-ESOPHAGEAL REFLUX DISEASE WITHOUT 10/12/2015 ALBERTO NAZARIO MD Ot K64.2 THIRD DEGREE HEMORRHOIDS 10/12/2015 ALBERTO NAZARIO MD Ot R09.02 HYPOXEMIA 10/12/2015 ALBERTO NAZARIO MD Ot R33.9 RETENTION OF URINE, UNSPECIFIED 10/12/2015 ALBERTO NAZARIO MD Ot Z87.891 PERSONAL HISTORY OF NICOTINE DEPENDENCE 10/29/2015 ALBERTO NAZARIO MD Ot K64.2 10/29/2015 ALBERTO NAZARIO MD Ot Z01.812 10/29/2015 ALBERTO NAZARIO MD, Ot Z11.2 11/08/2015 LIA RAHMAN, CARLTON Padilla Ot K57.90 DVRTCLOS OF INTEST, PART UNSP, W/O PERF 11/08/2015 LIA RAHMAN, CARLTON Padilla Ot R10.31 RIGHT LOWER QUADRANT PAIN 11/16/2015 FAIZAN RAHMAN, ALLISON R Ot A04.7 ENTEROCOLITIS DUE TO CLOSTRIDIUM DIFFICI 11/16/2015 FAIZAN RAHMAN, ALLISON R Ot E11.9 TYPE 2 DIABETES MELLITUS WITHOUT COMPLIC 11/16/2015 ALLISON GLORIA MD R Ot E86.9 VOLUME DEPLETION, UNSPECIFIED 11/16/2015 ALLISON GLORIA MD R Ot 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, SINGLE EPISOD 11/16/2015 ALLISON GLORIA MD R Ot I10 ESSENTIAL (PRIMARY) HYPERTENSION 11/16/2015 ALLISON GLORIA MD R Ot K21.9 GASTRO-ESOPHAGEAL REFLUX DISEASE WITHOUT 11/16/2015 ALLISON GLORIA MD R Ot Z23 ENCOUNTER FOR IMMUNIZATION 11/19/2015 FAIZAN RAHMAN, ALLISON R Ot R11.10 11/19/2015 FAIZAN RAHMAN, [...] Ot R11.10 VOMITING, UNSPECIFIED 05/30/2016 FAIZAN RAHMAN, ALILSON R Ot R19.7 DIARRHEA, UNSPECIFIED 10/11/2016 Ot V76.12 OTH SCREEN MAMMO-MALIGN NEOPLASM OF [place] 10/11/2016 Ot 285.9 ANEMIA NOS 10/11/2016 Ot 618.6 VAGINAL ENTEROCELE 10/11/2016 Ot 625.6 FEM STRESS INCONTINENCE 10/11/2016 Ot V72.63 PRE- PROCEDURAL LABORATORY EXAMINATION 10/11/2016 Ot V74.8 SCREEN- BACTERIAL DIS NEC 10/11/2016 Ot 599.0 URIN TRACT INFECTION NOS 10/11/2016 NEEMA HENSLEY MANAGER PATHOLOGY Ot 414.00 CORON ATHEROSCLER NOS TYPE VESSEL, NATIV 10/11/2016 NEEMA HENSLEY MANAGER PATHOLOGY Ot 786.09 RESPIRATORY ABNORM NEC 10/11/2016 KAYLEIGH RAHMAN, FELIBERTO Chow Ot 724.9 BACK DISORDER NOS 10/11/2016 ARAVIND RAHMAN, ALBERTO Ot V72.84 EXAM PRE-OPERATIVE NOS 10/11/2016 FAIZAN RAHMAN, ALLISON Pan Ot 611.72 LUMP OR MASS IN BREAST 10/11/2016 FAIZAN RAHMAN, ALLISON R Ot V76.12 OTH SCREEN MAMMO-MALIGN NEOPLASM OF [place] 10/11/2016 ANN NAZARIO MDAAKI Ot V72.84 EXAM PRE-OPERATIVE NOS 10/11/2016 FAIZAN RAHMAN, ALLISON Pan Ot 593.2 CYST OF KIDNEY, ACQUIRED 10/11/2016 FAIZAN RAHMAN, ALLISON Pan Ot 722.52 LUMB/LUMBOSAC DISC DEGEN 10/11/2016 JACQUELIN NORWOODC, ALI FACP CCDS Ot E11.9 TYPE 2 DIABETES MELLITUS WITHOUT COMPLIC 10/11/2016 JACQUELIN NORWOODC, ALI FACP CCDS Ot E78.5 HYPERLIPIDEMIA, UNSPECIFIED 10/11/2016 JACQUELIN NORWOODC, ALI FACP CCDS Ot I25.10 ATHSCL HEART DISEASE OF [place] CORONARY 10/11/2016 JACQUELIN RAHMAN FACC, ALI FACP [...] CCDS Ot I25.10 ATHSCL HEART DISEASE OF [place] CORONARY 10/11/2016 JACQUELIN NORWOODC, ALI FACP CCDS Ot I65.29 OCCLUSION AND [...] FOR PREPROCEDURAL LABORATORY E 10/11/2016 ALBERTO NAZARIO MD Ot Z11.2 ENCOUNTER FOR SCREENING FOR OTHER BACTER 10/11/2016 Ot R11.10 VOMITING, UNSPECIFIED 10/11/2016 Ot R19.7 DIARRHEA, UNSPECIFIED 10/12/2016 JACQUELIN RAHMAN FACC, ALI FACP CCDS Ot E78.4 OTHER HYPERLIPIDEMIA 10/12/2016 JACQUELIN RAHMAN FACC, ALI FACP CCDS Ot I25.10 ATHSCL HEART DISEASE OF [place] CORONARY 10/12/2016 JACQUELIN RAHMAN FACC, ALI FACP CCDS Ot 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 10/12/2016 JACQUELIN RAHMAN FACC, ALI FACP CCDS Ot K21.9 GASTRO-ESOPHAGEAL REFLUX DISEASE WITHOUT 10/12/2016 JACQUELIN RAHMAN FACC, ALI FACP CCDS Ot R53.83 OTHER FATIGUE 10/14/2016 LINDSEY RAHMAN, DIANE Alejo Ot R10.13 EPIGASTRIC PAIN 10/14/2016 LINDSEY RAHMAN, DIANE Alejo Ot Z01.818 ENCOUNTER FOR OTHER PREPROCEDURAL EXAMIN 10/17/2016 DIANE PORTILLO MD Ot E11.9 TYPE 2 DIABETES MELLITUS WITHOUT COMPLIC 10/17/2016 DIANE PORTILLO MD Ot K20.9 ESOPHAGITIS, UNSPECIFIED 10/17/2016 DIANE PORTILLO MD Ot K25.9 GASTRIC ULCER, UNSP ACUTE OR CHRONIC, 10/18/2016 DIANE PORTILLO MD Ot E11.9 TYPE 2 DIABETES MELLITUS WITHOUT COMPLIC 10/18/2016 LINDSEY RAHMAN, DIANE Alejo Ot K20.9 ESOPHAGITIS, UNSPECIFIED 10/18/2016 LINDSEY RAHMAN, DIANE M Ot K25.9 GASTRIC ULCER, UNSP ACUTE OR CHRONIC, 10/27/2016 LINDSEY RAHMAN, DIANE M Ot E11.9 TYPE 2 DIABETES MELLITUS WITHOUT COMPLIC 10/27/2016 LINDSEY RAHMAN, DIANE Alejo Ot K20.9 ESOPHAGITIS, UNSPECIFIED 10/27/2016 LINDSEY RAHMAN, DIANE M Ot K25.9 GASTRIC ULCER, UNSP ACUTE OR CHRONIC, 10/27/2016 YUNIER, GRIFFIN MANAGER PATHOLOGY Ot E11.9 TYPE 2 DIABETES MELLITUS WITHOUT COMPLIC 10/27/2016 YUNIER, GRIFFIN MANAGER PATHOLOGY Ot K76.0 FATTY (CHANGE OF) LIVER, NOT ELSEWHERE C 10/27/2016 YUNIER, GRIFFIN MANAGER PATHOLOGY Ot N32.9 BLADDER DISORDER, UNSPECIFIED 10/27/2016 YUNIER, GRIFFIN MANAGER PATHOLOGY Ot R19.7 DIARRHEA, UNSPECIFIED 10/27/2016 YUNIER, GRIFFIN MANAGER PATHOLOGY Ot Z79.82 SENIOR CARE (CURRENT) USE OF ASPIRIN 10/27/2016 YUNIER, GRIFFIN MANAGER PATHOLOGY Ot Z79.84 SYSTEMS TEST ENGINEER (CURRENT) USE OF ORAL HYPOGLYC 10/27/2016 YUNIER, GRIFFIN MANAGER PATHOLOGY Ot Z79.899 OTHER SYSTEMS TEST ENGINEER (CURRENT) DRUG THERAPY 10/28/2016 YUNIER, GRIFFIN MANAGER PATHOLOGY Ot E11.9 TYPE 2 DIABETES MELLITUS WITHOUT COMPLIC 10/28/2016 YUNIER, GRIFFIN MANAGER PATHOLOGY Ot K76.0 FATTY (CHANGE OF) LIVER, NOT ELSEWHERE C 10/28/2016 YUNIER, GRIFFIN MANAGER PATHOLOGY Ot N32.9 BLADDER DISORDER, UNSPECIFIED 10/28/2016 YUNIER, GRIFFIN MANAGER PATHOLOGY Ot R19.7 DIARRHEA, UNSPECIFIED 10/28/2016 YUNIER, GRIFFIN MANAGER PATHOLOGY Ot Z79.82 SENIOR CARE (CURRENT) USE OF ASPIRIN 10/28/2016 YUNIER, GRIFFIN MANAGER PATHOLOGY Ot Z79.84 SYSTEMS TEST ENGINEER (CURRENT) USE OF ORAL HYPOGLYC 10/28/2016 YUNIER, GRIFFIN MANAGER PATHOLOGY Ot Z79.899 OTHER SENIOR CARE (CURRENT) DRUG THERAPY 10/28/2016 LOPEZ KEE TREATING PLANT SUPERVISOR Ot E11.9 TYPE 2 DIABETES MELLITUS WITHOUT COMPLIC 10/28/2016 LOPEZ KEE APRN Ot N32.9 BLADDER DISORDER, UNSPECIFIED 10/28/2016 LOPEZ KEE T[employer]ATING PLANT SUPERVISOR Ot R11.2 NAUSEA WITH VOMITING, UNSPECIFIED 10/28/2016 LOPEZ KEE T[employer]ATING PLANT SUPERVISOR Ot R19.7 DIARRHEA, UNSPECIFIED 10/28/2016 LOPEZ KEE TREATING PLANT SUPERVISOR Ot Z79.82 SYSTEMS TEST ENGINEER (CURRENT) USE OF ASPIRIN 10/28/2016 LOPEZ KEE TREATING PLANT SUPERVISOR Ot Z79.84 SENIOR CARE (CURRENT) USE OF ORAL HYPOGLYC 10/28/2016 LOPEZ KEE TREATING PLANT SUPERVISOR Ot Z79.899 OTHER SYSTEMS TEST ENGINEER (CURRENT) DRUG THERAPY 10/30/2016 YUNIER GRIFFIN MANAGER PATHOLOGY Ot E11.9 TYPE 2 DIABETES MELLITUS WITHOUT COMPLIC 10/30/2016 YUNIER GRIFFIN MANAGER PATHOLOGY Ot K76.0 FATTY (CHANGE OF) LIVER, NOT ELSEWHERE C 10/30/2016 YUNIER GRIFFIN MANAGER PATHOLOGY Ot N32.9 BLADDER DISORDER, UNSPECIFIED 10/30/2016 YUNIER GRIFFIN MANAGER PATHOLOGY Ot R19.7 DIARRHEA, UNSPECIFIED 10/30/2016 YUNIER, GRIFFIN MANAGER PATHOLOGY Ot Z79.82 SYSTEMS TEST ENGINEER (CURRENT) USE OF ASPIRIN 10/30/2016 YUNIER GRIFFIN MANAGER PATHOLOGY Ot Z79.84 SYSTEMS TEST ENGINEER (CURRENT) USE OF ORAL HYPOGLYC 10/30/2016 YUNIER GRIFFIN MANAGER PATHOLOGY Ot Z79.899 OTHER SYSTEMS TEST ENGINEER (CURRENT) DRUG THERAPY 11/01/2016 LOPEZ KEE APRN Ot E11.9 TYPE 2 DIABETES MELLITUS WITHOUT COMPLIC 11/01/2016 LOPEZ KEE T[employer]ATING PLANT SUPERVISOR Ot N32.9 BLADDER DISORDER, UNSPECIFIED 11/01/2016 LOPEZ KEE TREATING PLANT SUPERVISOR Ot R11.2 NAUSEA WITH VOMITING, UNSPECIFIED 11/01/2016 LOPEZ KEE TREATING PLANT SUPERVISOR Ot R19.7 DIARRHEA, UNSPECIFIED 11/01/2016 LOPEZ KEE TREATING PLANT SUPERVISOR Ot Z79.82 SYSTEMS TEST ENGINEER (CURRENT) USE OF ASPIRIN 11/01/2016 LOPEZ KEE TREATING PLANT SUPERVISOR Ot Z79.84 SENIOR CARE (CURRENT) USE OF ORAL HYPOGLYC 11/01/2016 LOPEZ KEE TREATING PLANT SUPERVISOR Ot Z79.899 OTHER SENIOR CARE (CURRENT) DRUG THERAPY 11/07/2016 JACQUELIN RAHMAN FACC, JAZMIN FACP CCDS Ot E78.4 OTHER HYPERLIPIDEMIA 11/07/2016 JACQUELIN RAHMAN FACC, JAZMIN FACP CCDS Ot I25.10 ATHSCL HEART DISEASE OF [place] CORONARY 11/07/2016 JACQUELIN RAHMAN FACC, JAZMIN FACP CCDS Ot 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 11/07/2016 JACQUELIN RAHMAN [facility], ALI [facility] CCDS Ot K21.9 GASTRO-ESOPHAGEAL REFLUX DISEASE WITHOUT 11/07/2016 JAQCUELIN RAHMAN [facility], ALI [facility] CCDS Ot R53.83 OTHER FATIGUE 11/07/2016 Ot R11.10 VOMITING, UNSPECIFIED 11/07/2016 Ot R19.7 DIARRHEA, UNSPECIFIED 11/07/2016 NATHAN URIAS Ot E11.9 TYPE 2 DIABETES MELLITUS WITHOUT COMPLIC 11/07/2016 TRESSA URIASEN L Ot 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 11/07/2016 TRESSA URIASEN L Ot L50.9 URTICARIA, UNSPECIFIED 11/07/2016 NATHAN URIAS Ot Z79.82 SYSTEMS TEST ENGINEER (CURRENT) USE OF ASPIRIN 11/07/2016 NATHAN URIAS L Ot Z79.899 OTHER SENIOR CARE (CURRENT) DRUG THERAPY 11/15/2016 TRESSA URIASEN L Ot 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 11/15/2016 TRESSA URIASEN L Ot L50.9 URTICARIA, UNSPECIFIED 11/15/2016 NATHAN URIAS Ot E11.9 TYPE 2 DIABETES MELLITUS WITHOUT COMPLIC 11/15/2016 NATHAN URIAS L Ot 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 11/15/2016 NATHAN URIAS L Ot L50.9 URTICARIA, UNSPECIFIED 11/15/2016 NATHAN URIAS Ot Z79.82 SENIOR CARE (CURRENT) USE OF ASPIRIN 11/15/2016 NATHAN URIAS Ot Z79.899 OTHER SENIOR CARE (CURRENT) DRUG THERAPY 11/15/2016 MUNIR ROCHE MD [...] URTICARIA, UNSPECIFIED 11/17/2016 NATHAN URIAS Ot Z79.82 SENIOR CARE (CURRENT) USE OF ASPIRIN 11/17/2016 NATHAN URIAS Ot Z79.899 OTHER SENIOR CARE (CURRENT) DRUG THERAPY 11/17/2016 MUNIR ROCHE MD [...] R Ot E04.0 NONTOXIC DIFFUSE GOITER 11/30/2016 ALLISON GLORIA MD R Ot R11.10 VOMITING, UNSPECIFIED 11/30/2016 ALLISON GLORIA MD R Ot R19.7 DIARRHEA, UNSPECIFIED 12/21/2016 MUNIR ROCHE MD Ot 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 12/21/2016 MUNIR ROCHE MD Ot E11.9 TYPE 2 DIABETES MELLITUS WITHOUT COMPLIC 12/21/2016 MUNIR ROCHE MD Ot Z11.2 ENCOUNTER FOR SCREENING FOR OTHER BACTER 12/21/2016 DOV, JOYCE R TREATING PLANT SUPERVISOR Ot R11.10 VOMITING, UNSPECIFIED 12/21/2016 DOV JOYCE R TREATING PLANT SUPERVISOR Ot R19.7 DIARRHEA, UNSPECIFIED 12/27/2016 FAIZAN RAHMAN, ALLISON R Ot E04.0 NONTOXIC DIFFUSE GOITER 01/26/2017 JOYCE MONAE R TREATING PLANT SUPERVISOR Ot R11.10 VOMITING, UNSPECIFIED 01/26/2017 DOV, JOYCE R TREATING PLANT SUPERVISOR Ot R19.7 DIARRHEA, UNSPECIFIED 01/28/2017 FAIZAN RAHMAN, ALLISON R Ot R11.10 VOMITING, UNSPECIFIED 01/28/2017 FAIZAN RAHMAN, ALLISON R Ot R19.7 DIARRHEA, UNSPECIFIED 02/22/2017 LOPEZ KEE APRN Ot E11.9 TYPE 2 DIABETES MELLITUS WITHOUT COMPLIC 02/22/2017 LOPEZ KEE APRN Ot K02.9 DENTAL CARIES, UNSPECIFIED 02/22/2017 LOPEZ KEE APRN Ot K08.9 DISORDER OF TEETH AND SUPPORTING STRUCTU 02/22/2017 LOPEZ KEE T[employer]ATING PLANT SUPERVISOR Ot 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 02/23/2017 LOPEZ KEE TREATING PLANT SUPERVISOR Ot E11.9 TYPE 2 DIABETES MELLITUS WITHOUT COMPLIC 02/23/2017 LOPEZ KEE TREATING PLANT SUPERVISOR Ot K02.9 DENTAL CARIES, UNSPECIFIED 02/23/2017 LOPEZ KEE TREATING PLANT SUPERVISOR Ot K08.9 DISORDER OF TEETH AND SUPPORTING STRUCTU 02/23/2017 LOPEZ KEE TREATING PLANT SUPERVISOR Ot Z79.4 SENIOR CARE (CURRENT) USE OF INSULIN 03/01/2017 LOPEZ KEE TREATING PLANT SUPERVISOR Ot E11.9 TYPE 2 DIABETES MELLITUS WITHOUT COMPLIC 03/01/2017 LOPEZ KEE TREATING PLANT SUPERVISOR Ot K02.9 DENTAL CARIES, UNSPECIFIED 03/01/2017 LOPEZ KEE TREATING PLANT SUPERVISOR Ot K08.9 DISORDER OF TEETH AND SUPPORTING STRUCTU 03/01/2017 LOPEZ KEE TREATING PLANT SUPERVISOR Ot Z79.4 SENIOR CARE (CURRENT) USE OF INSULIN 03/17/2017 Ot R11.10 VOMITING, UNSPECIFIED 03/17/2017 Ot R19.7 DIARRHEA, UNSPECIFIED 03/17/2017 JOYCE MONAE R TREATING PLANT SUPERVISOR Ot R11.10 VOMITING, UNSPECIFIED 03/17/2017 JOYCE MONAE TREATING PLANT SUPERVISOR Ot R19.7 DIARRHEA, UNSPECIFIED 03/17/2017 LINDSEY RAHMAN, DIANE Alejo Ot K25.9 GASTRIC ULCER, UNSP ACUTE OR CHRONIC, 03/17/2017 LINDSEY RAHMAN, DIANE Alejo Ot Z01.818 ENCOUNTER FOR OTHER PREPROCEDURAL EXAMIN 03/17/2017 Ot 285.9 ANEMIA NOS 03/17/2017 Ot 618.6 VAGINAL ENTEROCELE 03/17/2017 Ot 625.6 FEM STRESS INCONTINENCE 03/17/2017 Ot V72.63 PRE- PROCEDURAL LABORATORY EXAMINATION 03/17/2017 Ot V74.8 SCREEN- BACTERIAL DIS NEC 03/17/2017 Ot 599.0 URIN TRACT INFECTION NOS 03/17/2017 NEEMA HENSLEY MANAGER PATHOLOGY Ot 414.00 CORON ATHEROSCLER NOS TYPE VESSEL, NATIV 03/17/2017 NEEMA HENSLEY MANAGER PATHOLOGY Ot 786.09 RESPIRATORY ABNORM NEC 03/17/2017 KAYLEIGH RAHMAN, FELIBERTO Chow Ot 724.9 BACK DISORDER NOS 03/17/2017 ARAVIND RAHMAN, LABERTO Ot V72.84 EXAM PRE-OPERATIVE NOS 03/17/2017 FAIZAN RAHMAN, ALLISON R Ot 611.72 LUMP OR MASS IN BREAST 03/17/2017 ALLISON GLORIA MD R Ot V76.12 OTH SCREEN MAMMO-MALIGN NEOPLASM OF [place] 03/17/2017 ARAVIND RAHMAN, ALBERTO Ot V72.84 EXAM PRE-OPERATIVE NOS 03/17/2017 ALLISON [...] CCDS Ot I25.10 ATHSCL HEART DISEASE OF [place] CORONARY 03/17/2017 JACQUELIN RAHMAN FACC, JAZMIN FACP CCDS Ot I65.29 OCCLUSION AND STENOSIS OF UNSPECIFIED CA 03/17/2017 JACQUELIN RAHMAN FACC, JAZMIN FACP CCDS Ot I73.9 PERIPHERAL VASCULAR DISEASE, UNSPECIFIED 03/17/2017 JACQUELIN RAHMAN FACC, ALI FACP CCDS Ot I77.9 DISORDER OF ARTERIES AND ARTERIOLES, UNS 03/17/2017 JACQUELIN NORWOOD, ALI FACP CCDS Ot M54.9 DORSALGIA, UNSPECIFIED 03/17/2017 JACQUELIN RAHMAN FACC, ALI FACP CCDS Ot R06.09 OTHER FORMS OF DYSPNEA 03/17/2017 JACQUELIN NORWOODC, ALI FACP CCDS Ot R53.83 OTHER FATIGUE 03/17/2017 JACQUELIN RAHMAN FACC, ALI FACP CCDS Ot E11.9 TYPE 2 DIABETES MELLITUS WITHOUT COMPLIC 03/17/2017 JACQUELIN RAHMAN FACC, ALI FACP CCDS Ot E78.5 HYPERLIPIDEMIA, UNSPECIFIED 03/17/2017 JACQUELIN NORWOODC, ALI FACP CCDS Ot I25.10 ATHSCL HEART DISEASE OF [place] CORONARY 03/17/2017 JACQUELIN RAHMAN FACC, ALI FACP [...] FACP CCDS Ot R53.83 OTHER FATIGUE 03/17/2017 FAIZAN RAHMAN, ALLISON R Ot R11.10 VOMITING, UNSPECIFIED 03/17/2017 ALLISON GLORIA MD R Ot R19.7 DIARRHEA, UNSPECIFIED 03/17/2017 FAIZAN RAHMAN ALLISON R Ot D50.0 IRON DEFICIENCY ANEMIA SECONDARY TO BLOO 03/17/2017 ALBERTO NAZARIO MD Ot K64.2 THIRD DEGREE HEMORRHOIDS 03/17/2017 ALBERTO NAZARIO MD Ot Z01.812 ENCOUNTER FOR PREPROCEDURAL LABORATORY E 03/17/2017 ALBERTO NAZAROI MD, Ot Z11.2 ENCOUNTER FOR SCREENING FOR OTHER BACTER 03/17/2017 Ot R11.10 VOMITING, UNSPECIFIED 03/17/2017 Ot R19.7 DIARRHEA, UNSPECIFIED 03/17/2017 JACQUELIN RAHMAN FACC, ALI FACP CCDS Ot E78.4 OTHER HYPERLIPIDEMIA 03/17/2017 JACQUELIN RAHMAN [facility], ALI FACP CCDS Ot I25.10 ATHSCL HEART DISEASE OF [place] CORONARY 03/17/2017 JACQUELIN RAHMAN [facility], ALI FACP CCDS Ot 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 03/17/2017 JACQUELIN RAHMAN FACEllen, ALI FACP CCDS Ot K21.9 GASTRO-ESOPHAGEAL REFLUX DISEASE WITHOUT 03/17/2017 JAC[facility]ELIN RAHMAN [facility], ALI FACP CCDS Ot R53.83 OTHER FATIGUE 03/17/2017 LINDSEY RAHMAN, DIANE Alejo Ot R10.13 EPIGASTRIC PAIN 03/17/2017 LINDSEY RAHMAN, DIANE Alejo Ot Z01.818 ENCOUNTER FOR OTHER PREPROCEDURAL EXAMIN 03/17/2017 FAIZAN RAHMAN, ALLISON R Ot E04.0 NONTOXIC DIFFUSE GOITER 03/17/2017 FAIZAN RAHMAN ALLISON R Ot E04.0 NONTOXIC DIFFUSE GOITER 03/20/2017 Ot R11.10 VOMITING, UNSPECIFIED 03/20/2017 Ot R19.7 DIARRHEA, UNSPECIFIED 03/20/2017 JOYCE MONAE R T[employer]ATING PLANT SUPERVISOR Ot R11.10 VOMITING, UNSPECIFIED 03/20/2017 JOYCE MONAE R TREATING PLANT SUPERVISOR Ot R19.7 DIARRHEA, UNSPECIFIED 03/20/2017 DIANE PORTILLO MD Ot E11.9 TYPE 2 DIABETES MELLITUS WITHOUT COMPLIC 03/20/2017 DIANE PORTILLO MD Ot 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, SINGLE EPISOD 03/20/2017 DIANE PORTILLO MD Ot I10 ESSENTIAL (PRIMARY) HYPERTENSION 03/20/2017 DIANE PORTILLO MD Ot I25.10 ATHSCL HEART DISEASE OF [place] CORONARY 03/20/2017 DIANE PORTILLO MD Ot K20.9 ESOPHAGITIS, UNSPECIFIED 03/20/2017 DIANE PORTILLO MD Ot K25.9 GASTRIC ULCER, UNSP ACUTE OR CHRONIC, 03/22/2017 DIANE PORTILLO MD Ot E11.9 TYPE 2 DIABETES MELLITUS WITHOUT COMPLIC 03/22/2017 DIANE PORTILLO MD Ot 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, SINGLE EPISOD 03/22/2017 DIANE PORTILLO MD Ot I10 ESSENTIAL (PRIMARY) HYPERTENSION 03/22/2017 DIANE PORTILLO MD Ot I25.10 ATHSCL HEART DISEASE OF [place] CORONARY 03/22/2017 LINDSEY RAHMAN, DIANE Alejo Ot K20.9 ESOPHAGITIS, UNSPECIFIED 03/22/2017 LINDSEY RAHMAN, DIANE Alejo Ot K25.9 GASTRIC ULCER, UNSP ACUTE OR CHRONIC, 03/26/2017 DIANE PORTILLO MD Ot E11.9 TYPE 2 DIABETES MELLITUS WITHOUT COMPLIC 03/26/2017 DIANE PORTILLO MD Ot 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, SINGLE EPISOD 03/26/2017 DIANE PORTILLO MD Ot I10 ESSENTIAL (PRIMARY) HYPERTENSION 03/26/2017 DIANE PORTILLO MD Ot I25.10 ATHSCL HEART DISEASE OF [place] CORONARY 03/26/2017 DIANE PORTILLO MD Ot K20.9 ESOPHAGITIS, UNSPECIFIED 03/26/2017 DIANE PORTILLO MD Ot K25.9 GASTRIC ULCER, UNSP ACUTE OR CHRONIC, 04/27/2017 Ot 599.0 URIN TRACT INFECTION NOS 04/27/2017 NEEMA HENSLEY MANAGER PATHOLOGY Ot 414.00 CORON ATHEROSCLER NOS TYPE VESSEL, NATIV 04/27/2017 NEEMA HENSLEY MANAGER PATHOLOGY Ot 786.09 RESPIRATORY ABNORM NEC 04/27/2017 KAYLEIGH RAHMAN, FELIBERTO P Ot 724.9 BACK DISORDER NOS 04/27/2017 ALBERTO NAZARIO MD Ot V72.84 EXAM PRE-OPERATIVE NOS 04/27/2017 ALLISON GLORIA MD R Ot 611.72 LUMP OR MASS IN BREAST 04/27/2017 ALLISON GLORIA MD R Ot V76.12 OTH SCREEN MAMMO-MALIGN NEOPLASM OF [place] 04/27/2017 ALBERTO NAZARIO MD Ot V72.84 EXAM PRE-OPERATIVE NOS 04/27/2017 ALLISON GLORIA MD R Ot 593.2 CYST OF KIDNEY, ACQUIRED 04/27/2017 ALLISON GLORIA MD R Ot 722.52 LUMB/LUMBOSAC DISC DEGEN 04/27/2017 JACQUELIN RAHMAN FACC, ALI FACP CCDS Ot E11.9 TYPE 2 DIABETES MELLITUS WITHOUT COMPLIC 04/27/2017 JACQUELIN RAHMAN FACC, ALI FACP CCDS Ot E78.5 HYPERLIPIDEMIA, UNSPECIFIED 04/27/2017 JACQUELIN RAHMAN FACC, ALI FACP CCDS Ot I25.10 ATHSCL HEART DISEASE OF [place] CORONARY 04/27/2017 JACQUELIN RAHMAN FACC, ALI FACP CCDS Ot I65.29 OCCLUSION AND STENOSIS OF UNSPECIFIED CA 04/27/2017 JACQUELIN RAHMAN FACC, ALI FACP CCDS Ot I73.9 PERIPHERAL VASCULAR DISEASE, UNSPECIFIED 04/27/2017 JACQUELIN RAHMAN FACC, ALI FACP CCDS Ot I77.9 DISORDER OF ARTERIES AND ARTERIOLES, UNS 04/27/2017 JACQUELIN RAHMAN FACC, ALI FACP CCDS Ot M54.9 DORSALGIA, UNSPECIFIED 04/27/2017 JACQUELIN RAHMAN FACC, ALI FACP CCDS Ot R06.09 OTHER FORMS OF DYSPNEA 04/27/2017 JACQUELIN RAHMAN FACC, ALI FACP CCDS Ot R53.83 OTHER FATIGUE 04/27/2017 JACQUELIN NORWOODC, ALI FACP CCDS Ot E11.9 TYPE 2 DIABETES MELLITUS WITHOUT COMPLIC 04/27/2017 JACQUELIN RAHMAN FACC, ALI FACP CCDS Ot E78.5 HYPERLIPIDEMIA, UNSPECIFIED 04/27/2017 JACQUELIN RAHMAN FACC, ALI FACP CCDS Ot I25.10 ATHSCL HEART DISEASE OF [place] CORONARY 04/27/2017 JACQUELIN RAHMAN FACC, ALI FACP CCDS Ot I65.29 OCCLUSION AND STENOSIS OF UNSPECIFIED CA 04/27/2017 JACQUELIN RAHMAN FACC, ALI FACP CCDS Ot I73.9 PERIPHERAL VASCULAR DISEASE, UNSPECIFIED 04/27/2017 JACQUELIN RAHMAN FACC, ALI FACP CCDS Ot I77.9 DISORDER OF ARTERIES AND ARTERIOLES, UNS 04/27/2017 JACQUELIN NORWOODC, ALI FACP CCDS Ot M54.9 DORSALGIA, UNSPECIFIED 04/27/2017 JACQUELIN RAHMAN FACC, ALI FACP CCDS Ot R06.09 OTHER FORMS OF DYSPNEA 04/27/2017 JACQUELIN NORWOODC, ALI FACP CCDS Ot R53.83 OTHER FATIGUE 04/27/2017 ALLISON GLORIA MD R Ot R11.10 VOMITING, UNSPECIFIED 04/27/2017 ALLISON GLORIA MD R Ot R19.7 DIARRHEA, UNSPECIFIED 04/27/2017 ALLISON GLORIA MD R Ot D50.0 IRON DEFICIENCY ANEMIA SECONDARY TO BLOO 04/27/2017 ALBERTO NAZARIO MD Ot K64.2 THIRD DEGREE HEMORRHOIDS 04/27/2017 ALBERTO NAZARIO MD Ot Z01.812 ENCOUNTER FOR PREPROCEDURAL LABORATORY E 04/27/2017 ARAVIND RAHMAN, ALBERTO Ot Z11.2 ENCOUNTER FOR SCREENING FOR OTHER BACTER 04/27/2017 Ot R11.10 VOMITING, UNSPECIFIED 04/27/2017 Ot R19.7 DIARRHEA, UNSPECIFIED 04/27/2017 JACQUELIN RAHMAN FAC, ALI FACP CCDS Ot E78.4 OTHER HYPERLIPIDEMIA 04/27/2017 JACQUELIN RAHMAN FAC, ALI FACP CCDS Ot I25.10 ATHSCL HEART DISEASE OF [place] CORONARY 04/27/2017 JACQUELIN RAHMAN FAC, ALI FACP CCDS Ot 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 04/27/2017 JACQUELIN RAHMAN FAC, ALI FACP CCDS Ot K21.9 GASTRO-ESOPHAGEAL REFLUX DISEASE WITHOUT 04/27/2017 JACQUELIN RAHMAN FAC, ALI FACP CCDS Ot R53.83 OTHER FATIGUE 04/27/2017 LINDSEY RAHMAN, DIANE Alejo Ot R10.13 EPIGASTRIC PAIN 04/27/2017 LINDSEY RAHMAN, DIANE Alejo Ot Z01.818 ENCOUNTER FOR OTHER PREPROCEDURAL EXAMIN 04/27/2017 ALLISON GLORIA MD R Ot E04.0 NONTOXIC DIFFUSE GOITER 04/27/2017 ALLISON GLORIA MD R Ot E04.0 NONTOXIC DIFFUSE GOITER 04/28/2017 NOLVIA GUTIERREZ MD Ot E11.9 TYPE 2 DIABETES MELLITUS WITHOUT COMPLIC 04/28/2017 NOLVIA GUTIERREZ MD Ot E78.00 PURE HYPERCHOLESTEROLEMIA, UNSPECIFIED 04/28/2017 NOLVIA GUTIERREZ MD Ot I10 ESSENTIAL (PRIMARY) HYPERTENSION 04/28/2017 NOLVIA GUTIERREZ MD Ot I25.10 ATHSCL HEART DISEASE OF [place] CORONARY 04/28/2017 NOLVIA GUTIERREZ MD Ot I73.9 PERIPHERAL VASCULAR DISEASE, UNSPECIFIED 04/28/2017 NOLVIA GUTIERREZ MD Ot K21.9 GASTRO-ESOPHAGEAL REFLUX DISEASE WITHOUT 04/28/2017 NOLVIA GUTIERREZ MD Ot R07.9 CHEST PAIN, UNSPECIFIED 04/28/2017 NOLVIA GUTIERREZ MD Ot R10.84 GENERALIZED ABDOMINAL PAIN 04/28/2017 NOLVIA GUTIERREZ MD Ot R11.2 NAUSEA WITH VOMITING, UNSPECIFIED 04/28/2017 NOLVIA GUTIERREZ MD Ot 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 04/28/2017 NOLVIA GUTIERREZ MD, Ot Z95.820 PERIPHERAL VASCULAR ANGIOPLASTY STATUS W 04/28/2017 NOLVIA GUTIERREZ MD Ot E11.9 TYPE 2 DIABETES MELLITUS WITHOUT COMPLIC 04/28/2017 NOLVIA GUTIERREZ MD Ot E78.00 PURE HYPERCHOLESTEROLEMIA, UNSPECIFIED 04/28/2017 NOLVIA GUTIERREZ MD Ot I10 ESSENTIAL (PRIMARY) HYPERTENSION 04/28/2017 NOLVIA GUTIERREZ MD Ot I25.10 ATHSCL HEART DISEASE OF [place] CORONARY 04/28/2017 NOLVIA GUTIERREZ MD Ot I73.9 PERIPHERAL VASCULAR DISEASE, UNSPECIFIED 04/28/2017 NOLVIA GUTIERREZ MD Ot K21.9 GASTRO-ESOPHAGEAL REFLUX DISEASE WITHOUT 04/28/2017 NOLVIA GUTIERREZ MD Ot R07.9 CHEST PAIN, UNSPECIFIED 04/28/2017 NOLVIA GUTIERREZ MD Ot R10.84 GENERALIZED ABDOMINAL PAIN 04/28/2017 NOLVIA GUTIERREZ MD Ot R11.2 NAUSEA WITH VOMITING, UNSPECIFIED 04/28/2017 NOLVIA GUTIERREZ MD, Ot 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 04/28/2017 NOLVIA GUTIERREZ MD Ot Z95.820 PERIPHERAL VASCULAR ANGIOPLASTY STATUS W 04/29/2017 ALLISON GLORIA MD R Ot R11.10 VOMITING, UNSPECIFIED 04/29/2017 ALLISON GLORIA MD R Ot R19.7 DIARRHEA, UNSPECIFIED 01/02/2018 Ot 599.0 URIN TRACT INFECTION NOS 01/02/2018 NEEMA HENSLEY MANAGER PATHOLOGY Ot 414.00 CORON ATHEROSCLER NOS TYPE VESSEL, NATIV 01/02/2018 NEEMA HENSLEY MANAGER PATHOLOGY Ot 786.09 RESPIRATORY ABNORM NEC 01/02/2018 KAYLEIGH RAHMAN, FELIBERTO P Ot 724.9 BACK DISORDER NOS 01/02/2018 ARAVIND RAHMAN, ALBERTO Ot V72.84 EXAM PRE-OPERATIVE NOS 01/02/2018 FAIZAN RAHMAN, ALLISON R Ot 611.72 LUMP OR MASS IN BREAST 01/02/2018 FAIZAN RAHMAN, ALLISON R Ot V76.12 OTH SCREEN MAMMO-MALIGN NEOPLASM OF JOESPH 01/02/2018 ARAVIND RAHMAN, ALBERTO Ot V72.84 EXAM PRE-OPERATIVE NOS 01/02/2018 FAIZAN RAHMAN, ALLISON R Ot 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.2 CYST OF KIDNEY, ACQUIRED 01/02/2018 FAIZAN RAHMAN, ALLISON R Ot 722.52 LUMB/LUMBOSAC DISC DEGEN 01/02/2018 JACQUELIN NORWOODC, ALI FACP CCDS Ot E11.9 TYPE 2 DIABETES MELLITUS WITHOUT COMPLIC 01/02/2018 JACQUELIN RAHMAN FACC, ALI FACP CCDS Ot E78.5 HYPERLIPIDEMIA, UNSPECIFIED 01/02/2018 JACQUELIN RAHMAN FACC, ALI FACP CCDS Ot I25.10 ATHSCL HEART DISEASE OF [place] CORONARY 01/02/2018 JACQUELIN NORWOODC, ALI FACP CCDS Ot I65.29 OCCLUSION AND STENOSIS OF UNSPECIFIED CA 01/02/2018 JACQUELIN RAHMAN FACC, ALI FACP CCDS Ot I73.9 PERIPHERAL VASCULAR DISEASE, UNSPECIFIED 01/02/2018 JACQUELIN RAHMAN FACC, ALI FACP CCDS Ot I77.9 DISORDER OF ARTERIES AND ARTERIOLES, UNS 01/02/2018 JACQUELIN RAHMAN FACC, ALI FACP CCDS Ot M54.9 DORSALGIA, UNSPECIFIED 01/02/2018 JACQUELIN RAHMAN FACC, ALI FACP CCDS Ot R06.09 OTHER FORMS OF DYSPNEA 01/02/2018 JACQUELIN RAHMAN FACC, ALI FACP CCDS Ot R53.83 OTHER FATIGUE 01/02/2018 JACQUELIN RAHMAN FACC, ALI FACP CCDS Ot E11.9 TYPE 2 DIABETES MELLITUS WITHOUT COMPLIC 01/02/2018 JACQUELIN NORWOODC, ALI FACP CCDS Ot E78.5 HYPERLIPIDEMIA, UNSPECIFIED 01/02/2018 JACQUELIN RAHMAN FACC, ALI FACP CCDS Ot I25.10 ATHSCL HEART DISEASE OF [place] CORONARY 01/02/2018 JACQUELIN RAHMAN FACC, ALI FACP CCDS Ot I65.29 OCCLUSION AND STENOSIS OF UNSPECIFIED CA 01/02/2018 JACQUELIN RAHMAN FACC, ALI FACP CCDS Ot I73.9 PERIPHERAL VASCULAR DISEASE, UNSPECIFIED 01/02/2018 JACQUELIN MD FACC, ALI FACP CCDS Ot I77.9 DISORDER OF ARTERIES AND ARTERIOLES, UNS 01/02/2018 JACQUELIN RAHMAN FACC, ALI FACP CCDS Ot M54.9 DORSALGIA, UNSPECIFIED 01/02/2018 JACQUELIN RAHMAN FACC, ALI FACP CCDS Ot R06.09 OTHER FORMS OF DYSPNEA 01/02/2018 JACQUELIN RAHMAN FACC, ALI FACP CCDS Ot R53.83 OTHER FATIGUE 01/02/2018 FAIZAN RAHMAN ALLISON R Ot R11.10 VOMITING, UNSPECIFIED 01/02/2018 CHANDNI GLORIA MDYD R Ot R19.7 DIARRHEA, UNSPECIFIED 01/02/2018 ALLISON GLORIA MD R Ot D50.0 IRON DEFICIENCY ANEMIA SECONDARY TO BLOO 01/02/2018 ALBERTO NAZARIO MD Ot K64.2 THIRD DEGREE HEMORRHOIDS 01/02/2018 ALBERTO NAZARIO MD, Ot Z01.812 ENCOUNTER FOR PREPROCEDURAL LABORATORY E 01/02/2018 ALBERTO NAZARIO MD, Ot Z11.2 ENCOUNTER FOR SCREENING FOR OTHER BACTER 01/02/2018 Ot R11.10 VOMITING, UNSPECIFIED 01/02/2018 Ot R19.7 DIARRHEA, UNSPECIFIED 01/02/2018 JACQUELIN RAHMAN FAC, ALI FACP CCDS Ot E78.4 OTHER HYPERLIPIDEMIA 01/02/2018 JACQUELIN RAHMAN FACC, ALI FACP CCDS Ot I25.10 ATHSCL HEART DISEASE OF [place] CORONARY 01/02/2018 JACQUELIN RAHMAN FACC, ALI FACP CCDS Ot 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 01/02/2018 JACQUELIN RAHMAN FACC, ALI FACP CCDS Ot K21.9 GASTRO-ESOPHAGEAL REFLUX DISEASE WITHOUT 01/02/2018 JACQUELIN RAHMAN FACC, ALI FACP CCDS Ot R53.83 OTHER FATIGUE 01/02/2018 DIANE PORTILLO MD Ot R10.13 EPIGASTRIC PAIN 01/02/2018 DIANE PORTILLO MD Ot Z01.818 ENCOUNTER FOR OTHER PREPROCEDURAL EXAMIN 01/02/2018 ALLISON GLORIA MD R Ot E04.0 NONTOXIC DIFFUSE GOITER 01/02/2018 ALLISON GLORIA MD R Ot E04.0 NONTOXIC DIFFUSE GOITER 01/02/2018 SEGLIE MD, ALLISON R Ot E01.0 IODINE-DEFICIENCY RELATED DIFFUSE (ENDEM 01/03/2018 FAIZAN RAHMAN, ALLISON R Ot E01.0 IODINE-DEFICIENCY RELATED DIFFUSE (ENDEM 01/04/2018 FAIZAN RAHMAN, ALLISON R Ot E01.0 IODINE-DEFICIENCY RELATED DIFFUSE (ENDEM 01/10/2018 FAIZAN RAHMAN, ALLISON R Ot E01.0 IODINE-DEFICIENCY RELATED DIFFUSE (ENDEM 01/11/2018 FAIZAN RAHMAN, ALLISON R Ot E01.0 IODINE-DEFICIENCY RELATED DIFFUSE (ENDEM 01/12/2018 FAIZAN RAHMAN, ALLISON R Ot E04.2 NONTOXIC MULTINODULAR GOITER 01/12/2018 JACQUELIN RAHMAN FACC, JAZMIN FACP CCDS Ot E11.9 TYPE 2 DIABETES MELLITUS WITHOUT COMPLIC 01/12/2018 JACQUELIN RAHMAN FACC, ALI FACP CCDS Ot E78.5 HYPERLIPIDEMIA, UNSPECIFIED 01/12/2018 JACQUELIN RAHMAN FACC, JAZMIN FACP CCDS Ot I25.10 ATHSCL HEART DISEASE OF [place] CORONARY Procedures Code Description Performed By Performed On 59.79 URIN INCONTIN REPAIR NEC 10/17/2011 70.24 VAGINAL BIOPSY 10/17/2011 70.50 CYSTOCEL/RECTOCEL REPAIR 10/17/2011 70.8 VAGINAL VAULT OBLITERAT 10/17/2011 [id number] EXCISION OF HEMORRHOIDAL PLEXUS, OPEN AP 10/08/2015 Results Test Result Range Capillary blood glucose measurement by glucometer (mass/volume) - 10/17/16 10: 40 Capillary blood glucose measurement by glucometer (mass/volume) 138 mg/dL 70-110 Complete blood count (CBC) with automated white blood cell (WBC) differential - 10/27/16 11:25 Blood leukocytes automated count (number/volume) 8.1 10*3/uL 4.3-11.0 Blood erythrocytes automated count (number/volume) 4.24 10*6/uL 4.35-5.85 Venous blood hemoglobin measurement (mass/volume) 13.1 [...] Automated blood platelet mean volume measurement 9.4 [foz_us] 7.4-10.4 Automated blood neutrophils/100 leukocytes 74 % [...] Serum or plasma sodium measurement (moles/volume) 138 mmol/L 135-145 Serum or plasma potassium measurement (moles/volume) 3.6 mmol/L 3.6-5.0 Serum or plasma chloride measurement (moles/volume) 103 mmol/L 98-107 Carbon dioxide 25 mmol/L 21-32 Serum or plasma anion gap determination (moles/volume) 10 mmol/L 5-14 Serum or plasma urea nitrogen measurement (mass/volume) 15 mg/dL 7-18 Serum or plasma creatinine measurement (mass/volume) 0.95 mg/dL 0.60-1.30 Serum or plasma urea nitrogen/creatinine mass [...] or plasma amylase measurement (enzymatic activity/volume) 44 U /L 25-125 Lipase - 10/27/16 11:25 Lipase 82 U/L 8-78 Complete urinalysis with reflex to culture - 10/27/16 11:25 Urine color determination YELLOW NRG Urine clarity determination SLIGHTLY CLOUDY NRG Urine pH measurement by test strip 5 5-9 Specific gravity of urine by test strip 1.015 1.016- 1.022 Urine protein assay by test strip, semi-quantitative [...] (F1 HELP) CALLED TO GRIFFIN/ED AT 1508, 10-28-2016/KD NRG C DIFFICILE AG + TOXIN A/B. - 10/28/16 10:00 RESULTS INDETERMINANT; MOLECULAR TEST TO FOLLOW NRG Stool bacteria identification by culture - 10/28/16 10:00 FREE TEXT EXTERNAL NO GROWTH OF NORMAL ENTERIC APRTHA NRG QUANTITY OF GROWTH Abundant Growth NRG Stool bacteria identification by culture [id number] NRG NEGATIVE FOR 0157 NEGATIVE FOR E COLI 0157 NRG NEGATIVE FOR CAMPY NEGATIVE FOR CAMPYLOBACTER NRG NEGATIVE FOR SHIGELLA NEGATIVE FOR SHIGELLA NRG NEGATIVE FOR SALMONELLA NEGATIVE FOR SALMONELLA NRG Complete blood count (CBC) with automated white blood cell (WBC) differential - 10/28/16 11:00 Blood leukocytes automated count (number/volume) 8.8 10*3/uL 4.3-11.0 Blood erythrocytes automated count (number/volume) 4.38 10*6/uL 4.35-5.85 Venous blood hemoglobin measurement (mass/volume) 13.5 [...] Automated blood platelet mean volume measurement 8.9 [foz_us] 7.4-10.4 Automated blood neutrophils/100 leukocytes 68 % [...] Serum or plasma sodium measurement (moles/volume) 143 mmol/L 135-145 Serum or plasma potassium measurement (moles/volume) 3.9 mmol/L 3.6-5.0 Serum or plasma chloride measurement (moles/volume) 107 mmol/L 98-107 Carbon dioxide 22 mmol/L 21-32 Serum or plasma anion gap determination (moles/volume) 14 mmol/L 5-14 Serum or plasma urea nitrogen measurement (mass/volume) 11 mg/dL 7-18 Serum or plasma creatinine measurement (mass/volume) 0.90 mg/dL 0.60-1.30 Serum or plasma urea nitrogen/creatinine mass [...] Urine pH measurement by test strip 6.5 5-9 Specific gravity of urine by test strip 1.010 1.016- 1.022 Urine protein assay by test strip, semi-quantitative [...] Urine pH measurement by test strip 5 5-9 Specific gravity of urine by test strip 1.010 1.016- 1.022 Urine protein assay by test strip, semi-quantitative [...] 18:14 Blood leukocytes automated count (number/volume) 13.1 10*3/uL 4.3-11.0 Blood erythrocytes automated count (number/volume) 4.69 10*6/uL 4.35-5.85 Venous blood hemoglobin measurement (mass/volume) 14.5 [...] Automated blood platelet mean volume measurement 9.0 [foz_us] 7.4-10.4 Automated blood neutrophils/100 leukocytes 80 % [...] Serum or plasma sodium measurement (moles/volume) 137 mmol/L 135-145 Serum or plasma potassium measurement (moles/volume) 4.5 mmol/L 3.6-5.0 Serum or plasma chloride measurement (moles/volume) 100 mmol/L 98-107 Carbon dioxide 25 mmol/L 21-32 Serum or plasma anion gap determination (moles/volume) 12 mmol/L 5-14 Serum or plasma urea nitrogen measurement (mass/volume) 15 mg/dL 7-18 Serum or plasma creatinine measurement (mass/volume) 1.21 mg/dL 0.60-1.30 Serum or plasma urea nitrogen/creatinine mass [...] 05:32 Blood leukocytes automated count (number/volume) 10.9 10*3/uL 4.3-11.0 Blood erythrocytes automated count (number/volume) 4.27 10*6/uL 4.35-5.85 Venous blood hemoglobin measurement (mass/volume) 13.1 [...] Automated blood platelet mean volume measurement 9.7 [foz_us] 7.4-10.4 Automated blood neutrophils/100 leukocytes 90 % [...] Serum or plasma sodium measurement (moles/volume) 137 mmol/L 135-145 Serum or plasma potassium measurement (moles/volume) 4.3 mmol/L 3.6-5.0 Serum or plasma chloride measurement (moles/volume) 104 mmol/L 98-107 Carbon dioxide 22 mmol/L 21-32 Serum or plasma anion gap determination (moles/volume) 11 mmol/L 5-14 Serum or plasma urea nitrogen measurement (mass/volume) 15 mg/dL 7-18 Serum or plasma creatinine measurement (mass/volume) 1.12 mg/dL 0.60-1.30 Serum or plasma urea nitrogen/creatinine mass [...] 21:10 Blood leukocytes automated count (number/volume) 10.6 10*3/uL 4.3-11.0 Blood erythrocytes automated count (number/volume) 4.55 10*6/uL 4.35-5.85 Venous blood hemoglobin measurement (mass/volume) 13.3 [...] Automated blood platelet mean volume measurement 9.3 [foz_us] 7.4-10.4 Automated blood neutrophils/100 leukocytes 63 % [...] Serum or plasma sodium measurement (moles/volume) 140 mmol/L 135-145 Serum or plasma potassium measurement (moles/volume) 4.0 mmol/L 3.6-5.0 Serum or plasma chloride measurement (moles/volume) 106 mmol/L 98-107 Carbon dioxide 22 mmol/L 21-32 Serum or plasma anion gap determination (moles/volume) 12 mmol/L 5-14 Serum or plasma urea nitrogen measurement (mass/volume) 16 mg/dL 7-18 Serum or plasma creatinine measurement (mass/volume) 1.13 mg/dL 0.60-1.30 Serum or plasma urea nitrogen/creatinine mass ratio 14 NRG Serum or plasma creatinine measurement with calculation of estimated glomerular filtration rate 46 NRG Serum or plasma glucose measurement (mass/volume) 160 mg/dL 70-105 Serum or plasma calcium measurement (mass/volume) 10.0 mg/dL 8.5-10.1 Erythrocyte sedimentation rate by westergren method - 02/22/17 21:10 Erythrocyte sedimentation rate by westergren method 10 mm 0-30 Capillary blood glucose measurement by glucometer (mass/volume) - 03/20/17 09: 14 Capillary blood glucose measurement by glucometer (mass/volume) 134 mg/dL 70-110 Complete urinalysis with reflex to culture - 04/27/17 01:10 Urine color determination YELLOW NRG Urine clarity determination CLEAR NRG Urine pH measurement by test strip 6 5-9 Specific gravity of urine by test strip 1.005 1.016- 1.022 Urine protein assay by test strip, semi-quantitative 1+ NEGATIVE Urine glucose detection by automated test strip NEGATIVE NEGATIVE Erythrocytes detection in urine sediment by light microscopy NEGATIVE NEGATIVE Urine ketones detection by automated test strip NEGATIVE NEGATIVE Urine nitrite detection by test strip NEGATIVE NEGATIVE Urine total bilirubin detection by test strip NEGATIVE NEGATIVE Urine urobilinogen measurement by automated test strip (mass/volume) NORMAL NORMAL Urine leukocyte esterase detection by dipstick NEGATIVE NEGATIVE Automated urine sediment erythrocyte count by microscopy (number/high power field) NONE NRG Automated urine sediment leukocyte count by microscopy (number/high power field ) NONE NRG Bacteria detection in urine sediment by light microscopy NEGATIVE NRG Squamous epithelial cells detection in urine sediment by light microscopy 5-10 NRG Crystals detection in urine sediment by light microscopy NONE NRG Casts detection in urine sediment by light microscopy NONE NRG Mucus detection in urine sediment by light microscopy NEGATIVE NRG Complete urinalysis with reflex to culture NO NRG Serum or plasma troponin i.cardiac measurement (mass/volume) - 04/27/17 22:30 Serum or plasma troponin i.cardiac measurement (mass/volume) < ng/ mL <0.30 Complete blood count (CBC) with automated white blood cell (WBC) differential - 04/27/17 23:00 Blood leukocytes automated count (number/volume) 12.1 10*3/uL 4.3-11.0 Blood erythrocytes automated count (number/volume) 4.86 10*6/uL 4.35-5.85 Venous blood hemoglobin measurement (mass/volume) 14.3 g/dL 11.5-16.0 Blood hematocrit (volume fraction) 43 % 35-52 Automated erythrocyte mean corpuscular volume 89 [foz_us] 80-99 Automated erythrocyte mean corpuscular hemoglobin (mass per erythrocyte) 29 pg 25-34 Automated erythrocyte mean corpuscular hemoglobin concentration measurement ( mass/volume) 33 g/dL 32-36 Automated erythrocyte distribution width ratio 13.6 % 10.0-14.5 Automated blood platelet count (count/volume) 292 10*3/uL 130-400 Automated blood platelet mean volume measurement 9.4 [foz_us] 7.4-10.4 Automated blood neutrophils/100 leukocytes 81 % 42-75 Automated blood lymphocytes/100 leukocytes 10 % 12-44 Blood monocytes/100 leukocytes 7 % 0-12 Automated blood eosinophils/100 leukocytes 1 % 0-10 Automated blood basophils/100 leukocytes 0 % 0-10 Blood neutrophils automated count (number/volume) 9.8 10*3 1.8-7.8 Blood lymphocytes automated count (number/volume) 1.2 10*3 1.0-4.0 Blood monocytes automated count (number/volume) 0.9 10*3 0.0-1.0 Automated eosinophil count 0.2 10*3/uL 0.0-0.3 Automated blood basophil count (count/volume) 0.0 10*3/uL 0.0-0.1 Comprehensive metabolic panel - 04/27/17 23:00 Serum or plasma sodium measurement (moles/volume) 141 mmol/L 135-145 Serum or plasma potassium measurement (moles/volume) 4.0 mmol/L 3.6-5.0 Serum or plasma chloride measurement (moles/volume) 104 mmol/L 98-107 Carbon dioxide 21 mmol/L 21-32 Serum or plasma anion gap determination (moles/volume) 16 mmol/L 5-14 Serum or plasma urea nitrogen measurement (mass/volume) 16 mg/dL 7-18 Serum or plasma creatinine measurement (mass/volume) 0.99 mg/dL 0.60-1.30 Serum or plasma urea nitrogen/creatinine mass ratio 16 NRG Serum or plasma creatinine measurement with calculation of estimated glomerular filtration rate 54 NRG Serum or plasma glucose measurement (mass/volume) 170 mg/dL 70-105 Serum or plasma calcium measurement (mass/volume) 10.0 mg/dL 8.5-10.1 Serum or plasma total bilirubin measurement (mass/volume) 0.4 mg/dL 0.1-1.0 Serum or plasma alkaline phosphatase measurement (enzymatic activity/volume) 114 U/L 40-136 Serum or plasma aspartate aminotransferase measurement (enzymatic activity/ volume) 42 U/L 5-34 Serum or plasma alanine aminotransferase measurement (enzymatic activity/volume ) 33 U/L 0-55 Serum or plasma protein measurement (mass/volume) 7.3 g/dL 6.4-8.2 Serum or plasma albumin measurement (mass/volume) 4.2 g/dL 3.2-4.5 Magnesium - 04/27/17 23:00 Magnesium 1.8 mg/dL 1.8-2.4 Lipase - 04/27/17 23:00 Lipase 52 U/L 8-78 THYROID STIMULATING HORMONE - 01/02/18 09:39 THYROID STIMULATING HORMONE 1.18 u[iU]/mL 0.35-4.94 Encounters ACCT No. Visit Date/Time Discharge Status Pt. Type Provider Facility Loc./Unit Complaint [id number] 01/11/2018 12:47:00 01/11/2018 23:59:59 CLS Outpatient FAIZAN RAHMAN, ALLISON [facility] RAD THYROMEGALY [id number] 01/11/2018 12:46:00 01/11/2018 23:59:59 CLS Outpatient JACQUELIN RAHMAN FACC, JAZMIN BLANCHARD CCDS [facility] CARD I25.10 CAD [id number] 01/02/2018 09:30:00 01/02/2018 23:59:59 CLS Outpatient ALLISON GLORIA MD [facility] LAB E01.0 [id number] 04/27/2017 23:01:00 04/28/2017 02:02:00 DIS Emergency BRENDA RAHMAN, NOLVIA Angulo [facility] ER VOMITTING/WEAKNESS [id number] 03/20/2017 08:41:00 03/20/2017 11:50:00 DIS Outpatient DIANE PORTILLO MD [facility] ENDO ULCER [id number] 03/17/2017 05:50:00 03/17/2017 11:28:00 DIS Outpatient DIANE PORTILLO MD [facility] PREOP ULCERS [id number] 02/22/2017 20:10:00 02/22/2017 23:30:00 DIS Emergency LOPEZ KEE [employer]PER[employer] [facility] ER LEFT SIDE FACE PAIN [id number] 01/27/2017 00:10:00 01/27/2017 23:59:59 CLS Preadmit JOYCE MONAE [employer]PER[employer] [facility] LAB ACUTE DIARRHEA,VOMITING [id number] 11/28/2016 14:37:00 01/26/2017 00:01:00 DIS Outpatient JOYCE MONEA [employer]PER[employer] [facility] LAB ACUTE DIARRHEA, VOMITING [id number] 12/05/2016 13:39:00 12/05/2016 23:59:59 CLS Outpatient ALLISON GLORIA MD [facility] RAD GOITER DIFFUSE,NON TOXIC [id number] 11/28/2016 14:24:00 11/28/2016 23:59:59 CLS Outpatient ALLISON GLORIA MD [facility] LAB GOITER DIFFUSE,NONTOXIC [id number] 11/16/2016 20:06:00 11/18/2016 10:25:00 DIS Inpatient MUNIR ROCHE MD [facility] 4TH POST OP PAIN,BLADDER LEAKAGE EXTRAPERITONEAL [id number] 11/16/2016 05:58:00 11/16/2016 12:30:00 DIS Outpatient MUNIR ROCHE MD [facility] BLADDER TUMOR [id number] 11/15/2016 12:40:00 11/15/2016 12:53:00 DIS Outpatient MUNIR ROCHE MD [facility] PREOP BLADDER TUMOR [id number] 11/07/2016 13:01:00 11/07/2016 17:26:00 DIS Emergency NATHAN URIAS [facility] ER CONGESTION, WELTS, CONFUSION [id number] 10/28/2016 10:56:00 10/28/2016 12:25:00 DIS Emergency LOPEZ KEE APRN [facility] ER DIARRHEA [id number] 10/27/2016 11:12:00 10/27/2016 14:53:00 DIS Emergency GRIFFIN FAYE [facility] ER DIARRHEA/WEAKNESS [id number] 10/17/2016 09:52:00 10/17/2016 13:20:00 DIS Outpatient DIANE PORTILLO MD [facility] UPPER GASTRIC PAIN [id number] 10/13/2016 05:56:00 10/13/2016 23:59:59 CLS Outpatient DIANE PORTILLO MD [facility] PREOP UPPER GASTRIC PAIN [id number] 10/11/2016 07:58:00 10/11/2016 23:59:59 CLS Outpatient JACQUELIN ARHMAN FACC, JAZMIN BLANCHARD CCDS [facility] CARD CAD,CAROTID ARTERIAL DISEASE,HLP,GERD [id number] 05/19/2016 14:20:00 05/19/2016 17:21:00 DIS Emergency JUDITH HINES MD [facility] ER CONSTIPATION/ABD PAIN [id number] 11/13/2015 10:21:00 11/16/2015 08:50:00 DIS Inpatient FAIZAN RAHMAN, ALLISON Pan [facility] 4TH Volume Depletion,Vomiting ,Diarrhea [id number] 11/08/2015 13:34:00 11/08/2015 16:55:00 DIS Emergency LIA RAHMAN, CARLTON Padilla [facility] ER POST OP/DIGESTION ISSUES/ VOMITING [id number] 10/11/2015 08:25:00 10/12/2015 17:33:00 DIS Inpatient ALBERTO NAZARIO MD [facility] 4TH POST OP HYPOXIA [id number] 10/06/2015 08:41:00 10/06/2015 23:59:59 CLS Outpatient ALBERTO NAZARIO MD [facility] PREOP HEMORRHOIDS [id number] 09/15/2015 10:36:00 09/15/2015 23:59:59 CLS Outpatient ALLISON GLORIA MD [facility] SDC ANEMIA BLOOD LOSS [id number] 09/03/2015 10:18:00 09/07/2015 09:00:00 DIS Inpatient ALLISON GLORIA MD [facility] 4TH ABD PAIN,FEVER,ANEMIA [id number] 09/01/2015 12:02:00 09/01/2015 23:59:59 CLS Outpatient ALLISON GLORIA MD [facility] RAD PESISTANT DIARRHEA AND VOMITTING [id number] 09/01/2015 11:26:00 09/01/2015 23:59:59 CLS Outpatient ALLISON GLORIA MD [facility] LAB PERSISTENT DIARRHEA, VOMITTING [id number] 08/21/2015 10:31:00 08/21/2015 23:59:59 CLS Outpatient JAZMIN ROEPR MD, FACC, FACP CCDS [facility] CARD CAD,FATIGUE [id number] 08/18/2015 12:05:00 08/18/2015 23:59:59 CLS Outpatient JAZMIN ROPER MD, FACC, FACP CCDS [facility] CARD CAD,FATIGUE [id number] 04/02/2015 14:52:00 04/02/2015 23:59:59 CLS Outpatient ALLISON GLORIA MD [facility] RAD L MID/LOWER BACK PAIN [id number] 03/23/2015 14:00:00 03/23/2015 16:59:00 DIS Emergency NATHAN URIAS [facility] ER UPPER LEFT BACK PAIN [id number] 11/05/2014 09:50:00 11/05/2014 12:45:00 DIS Outpatient ALBERTO NAZARIO MD [facility] SDC REFLUX [id number] 10/31/2014 06:08:00 10/31/2014 23:59:59 CLS Outpatient ALBERTO NAZARIO MD [facility] PREOP REFLUX [id number] 08/05/2014 07:49:00 08/05/2014 16:55:00 DIS Outpatient JACQUELIN RAHMAN FACC, JAZMIN BLANCHARD CCDS [facility] CATH EXERTIONAL DSYPNEA,CAD,DM [id number] 05/16/2014 11:19:00 05/16/2014 23:59:59 CLS Outpatient ALLISON GLORIA MD [facility] RAD SCREENING [id number] 01/22/2014 07:30:00 01/22/2014 12:00:00 DIS Outpatient ALBERTO NAZARIO MD [facility] HISTORY OF POLYPS [id number] 01/15/2014 07:31:00 01/15/2014 23:59:59 CLS Outpatient ALBERTO NAZARIO MD [facility] PREOP HISTORY OF POLYPS [id number] 10/03/2013 13:09:00 10/03/2013 16:05:00 DIS Emergency JUDITH HINES MD [facility] ER WEAKNESS [id number] 05/06/2013 09:21:00 05/06/2013 23:59:59 CLS Outpatient NEEMA HENSLEY [facility] CARD CAD,DYSPNEA [id number] 04/18/2013 14:55:00 04/18/2013 23:59:59 [facility] Out[facility] FELIBERTO VICTOR MD [facility] RAD LFT SI DSYFUNCTION [id number] 11/30/2015 00:00:00 Document Registration [id number] 07/26/2012 15:08:00 Document Registration [id number] 12/30/2011 16:49:00 Document Registration [id number] 10/24/2011 21:30:00 Document Registration [id number] 10/17/2011 05:40:00 Document Registration [id number] 10/11/2011 12:19:00 Document Registration [id number] 08/30/2011 08:54:00 Document Registration [id number] 03/24/2011 12:50:00 Document Registration [id number] 01/14/2011 15:04:00 Document Registration [id number] 01/07/2011 10:59:00 Document Registration [id number] 11/20/2010 18:40:00 Document Registration [id number] 09/15/2010 07:20:00 Document Registration [id number] 04/03/2015 05:24:06 ACT Document Registration
[2018-01-17] MEDS ORDERED: DOXY100C2 PO (00:25)
[2018-01-17] MEDS ORDERED: NS IV 1000 ML 1,000 ML IV SCH (00:39)
[2018-01-17] MEDS ORDERED: NS IV 1000 ML 1,000 ML IV ONE (00:43)
[2018-01-17] MEDS ORDERED: fentaNYL INJECTION 100 MCG/2 ML AMP IVP ONE (00:45)
[2018-01-17] MEDS ORDERED: ONDANSETRON 4 MG/2 ML (SDV) Z0FRAN IVP ONE (00:45)
--- NOTE | 2018-01-17 00:46 | ED Abdominal Pain ---
General Chief Complaint: Abdominal/GI Problems Stated Complaint: VOMITING,BACK PAIN,POSS FEVER Nursing Triage Note: Patient reports not feeling well today. 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 She's having no blood from the emesis. She says her pain is radiating into a back specialist left side. She says Monday, 5 days ago she was diagnosed with a urinary tract infection by Dr. Roche and he prescribed doxycycline for her. 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 She is not sure what her allergic response to all the antibiotics on her allergy list are. She is still having tremendous amount of burning when she urinates as well as pain all over her abdomen. She came to the ER tonight because she felt dehydrated from the vomiting. She has a history of coronary artery disease for which she is followed by Dr. Vázquez and has an appointment in a few weeks but she's not sure what for. She's had no objective fevers but she has had chills. Allergies and Home Medications Allergies Coded Allergies: metronidazole (Verified Allergy, Intermediate, hives, 03/17/17) Sulfa (Sulfonamide Antibiotics) (Verified Allergy, Unknown, 03/20/17) cephalexin (Verified Allergy, Unknown, 01/17/18) ciprofloxacin (Verified Allergy, Unknown, ITCHING, 03/17/17) codeine (Verified Allergy, Unknown, 01/17/18) metoprolol (Verified Allergy, Unknown, 01/17/18) nitrofurantoin (Verified Allergy, Unknown, 01/17/18) Home Medications Acetaminophen 500 Mg Tablet, 1,000 MG PO Q6H PRN for PAIN, (Reported) TAKES 2 (500MG) TABLETS Atorvastatin Calcium 40 Mg Tablet, 40 MG PO DAILY, (Reported) Cholecalciferol (Vitamin D3) 2,000 Unit Capsule, 2,000 UNIT PO BID, (Reported) Estrogens Conjugated 30 Gm Cr, 0.5 GM VG RAJAN,WE, (Reported) Insulin Aspart 100 Unit/1 Ml Susp, 2 UNIT SQ BID WITH MEALS, (Reported) TAKES WITH MORNING AND EVENING MEAL Lactobacillus Acidophilus 1 Each Capsule, 1 CAP PO BID, (Reported) Melatonin 3 Mg Tab.rapdis, 6 MG PO HS, (Reported) TAKES 2 (3MG) TABLETS Temazepam 30 Mg Capsule, 30 MG PO HS, (Reported) Tramadol HCl 50 Mg Tablet, 50 MG PO PRN, (Reported) Patient Home Medication List Home Medication List Reviewed: Yes Review of Systems Constitutional: chills, No diaphoresis, No fever, malaise EENTM: No Blurred Vision, No Double Vision Respiratory: Denies Cough, Denies Shortness of Air Cardiovascular: Denies Chest Pain, Denies Palpitations, Denies Syncope Gastrointestinal: Denies Constipated, Denies Diarrhea, Nausea, Vomiting Genitourinary: Burning, Denies Discharge, Denies Drainage Musculoskeletal: No back pain, No joint pain Skin: No change in color, No dryness, No pruritus, No rash Psychiatric/Neurological: Denies Headache, Denies Numbness Past [id number]-[id number] Hx Patient Social History Alcohol Use: Denies Use Recreational Drug Use: No Type Used: Cigarettes Former Smoker, Quit: Sep 30, 1996 2nd Hand Smoke Exposure: No Recent Foreign Travel: No Contact w/Someone Who Travel: No Recent Infectious Disease Expo: No Recent Hopitalizations: No Immunizations Up To Date Tetanus Booster (TDap): Unknown PED Vaccines UTD: No Date of Pneumonia Vaccine: May 17, 2016 Date of Influenza Vaccine: Aug 17, 2016 Seasonal Allergies Seasonal Allergies: No Surgeries History of Surgeries: Yes (BACK, HAD TO HAVE 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) Surgeries: Appendectomy, Bladder Surgery, Coronary Stent, Gallbladder, Hysterectomy, Vascular Surgery Respiratory History of Respiratory Disorde: Yes (IS TO HAVE A SLEEP STUDY) Respiratory Disorders: Pneumonia Currently Using CPAP: No Currently Using BIPAP: No Cardiovascular History of Cardiac Disorders: Yes (STENTS, 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) Genitourinary Disorders: Bladder Infection, UTI-Chronic Gastrointestinal History of Gastrointestinal Di: Yes Gastrointestinal Disorders: Gastroesophageal Reflux, Chronic Constipation, Diverticulosis, Hemorrhoids, Polyps Musculoskeletal History of Musculoskeletal Dis: Yes Musculoskeletal Disorders: Arthritis, Chronic Back Pain Endocrine History of Endocrine Disorders: Yes (multinodular goiter) Endocrine Disorders: Diabetes, Non-Insulin dep HEENT Loss of Vision: Bilateral Hearing Impairment: Denies Cancer History of Cancer: No Psychosocial History of Psychiatric Problem: No (IN THE PAST) Behavioral Health Disorders: Depression Integumentary History of Skin or Integumenta: Yes (OCCASIONALLY) Skin/Integumentary Disorders: Psoriasis Blood Transfusions 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) Adverse Reaction to a Blood Tr: No (HAS HAD BLOOD TRANSFUSION WITH NO DIFFICULTY) Family Medical History Significant Family History: No Pertinent Family Hx Family Medial History: Cancer of mouth Diabetes mellitus 19 FATHER Dysphasia G8 SISTER FH: thyroid cancer Myocardial infarction 19 FATHER Physical Exam Vital Signs VS - Last 72 Hours, by Label 01/17/18 00:15 Temp 98.2 Pulse 78 Resp 18 B/P (MAP) 132/59 (83) Pulse Ox 92 Capillary Refill : Less Than 3 Seconds General Appearance: WD/WN, mild distress HEENT: PERRL/EOMI, TMs normal, pharynx normal (oral pharynx is dry) Neck: non-tender, normal inspection Respiratory: chest non-tender, lungs clear, normal breath sounds, no respiratory distress, no accessory muscle use Cardiovascular: normal peripheral pulses, regular rate, rhythm, no edema Peripheral Pulses: 2+ Dorsalis Pedis (R), 2+ Left Dors-Pedis (L), 2+ Radial Pulses (R), 2+ Radial Pulses (L) Gastrointestinal: normal bowel sounds, soft, no organomegaly, tenderness ( especially epigastric but all 4 quadrants are tender) Extremities: normal range of motion, non-tender, normal inspection, no pedal edema, no calf tenderness, normal capillary refill Back: normal inspection, no vertebral tenderness, CVA tenderness (R), CVA tenderness (L) (left more than right) Neurologic/Psychiatric: alert, normal mood/affect, oriented x 3 Skin: normal color, warm/dry Focused Exam Evaluation Lactate Level Laboratory Tests 01/17/18 01:50: Lactic Acid Level 1.39 Lactic Acid Level Laboratory Tests Test 01/17/18 01:50 Lactic Acid Level 1.39 MMOL/L (0.50-2.00) Progress/Results/Core Measures Results/Orders Lab Results Laboratory Tests Test 01/17/18 00:20 01/17/18 01:50 01/17/18 01:55 Range/Units White Blood Count 20.2 H 4.3-11.0 10^3/uL Red Blood Count 3.92 L 4.35-5.85 10^6/uL Hemoglobin 11.5 11.5-16.0 G/DL Hematocrit 35 35-52 % Mean Corpuscular Volume 90 80-99 FL Mean Corpuscular Hemoglobin 29 25-34 PG Mean Corpuscular Hemoglobin Concent 33 32-36 G/DL Red Cell Distribution Width 13.7 10.0-14.5 % Platelet Count 304 130-400 10^3/uL Mean Platelet Volume 9.2 7.4-10.4 FL Neutrophils (%) (Auto) 83 H 42-75 % Lymphocytes (%) (Auto) 10 L 12-44 % Monocytes (%) (Auto) 6 0-12 % Eosinophils (%) (Auto) 1 0-10 % Basophils (%) (Auto) 0 0-10 % Neutrophils # (Auto) 16.7 H 1.8-7.8 X 10^3 Lymphocytes # (Auto) 2.0 1.0-4.0 X 10^3 Monocytes # (Auto) 1.2 H 0.0-1.0 X 10^3 Eosinophils # (Auto) 0.2 0.0-0.3 10^3/uL Basophils # (Auto) 0.0 0.0-0.1 10^3/uL Neutrophils % (Manual) 83 % Lymphocytes % (Manual) 10 % Monocytes % (Manual) 4 % Eosinophils % (Manual) 2 % Basophils % (Manual) 0 % Band Neutrophils 1 % Blood Morphology Comment NORMAL Sodium Level 135 135-145 MMOL/L Potassium Level 4.2 3.6-5.0 MMOL/L Chloride Level 104 98-107 MMOL/L Carbon Dioxide Level 18 L 21-32 MMOL/L Anion Gap 13 5-14 MMOL/L Blood Urea Nitrogen 19 H 7-18 MG/DL Creatinine 0.89 0.60-1.30 MG/DL Estimat Glomerular Filtration Rate > 60 BUN/Creatinine Ratio 21 Glucose Level 203 H 70-105 MG/DL Calcium Level 9.6 8.5-10.1 MG/DL Magnesium Level 1.5 L 1.8-2.4 MG/DL Total Bilirubin 0.8 0.1-1.0 MG/DL Aspartate Amino Transf (AST/SGOT) 73 H 5-34 U/L Alanine Aminotransferase (ALT/SGPT) 45 0-55 U/L Alkaline Phosphatase 107 40-136 U/L Total Protein 6.6 6.4-8.2 GM/DL Albumin 3.9 3.2-4.5 GM/DL Lactic Acid Level 1.39 0.50-2.00 MMOL/L Urine Color ORANGE Urine Clarity SLIGHTLY CLOUDY Urine pH 5 5-9 Urine Specific [place] 1.030 H 1.016-1.022 Urine Protein 2+ H NEGATIVE Urine Glucose (UA) NEGATIVE NEGATIVE Urine Ketones NEGATIVE NEGATIVE Urine Nitrite POSITIVE H NEGATIVE Urine Bilirubin 1+ H NEGATIVE Urine Urobilinogen 1 NORMAL MG/DL Urine Leukocyte Esterase 3+ H NEGATIVE Urine RBC (Auto) 2+ H NEGATIVE Urine RBC NONE /HPF Urine WBC >100 H /HPF Urine Squamous Epithelial Cells 10-25 H /HPF Urine Crystals NONE /LPF Urine Bacteria MODERATE H /HPF Urine Casts NONE /LPF Urine Mucus NEGATIVE /LPF Urine Culture Indicated YES My Orders Orders - ANURAG COVINGTON Ua Culture If Indicated (01/17/18 00:01) Ct Abdomen/Pelvis W Wo (01/17/18 00:39) Saline Lock/Iv-Start (01/17/18 00:39) Cbc With Automated Diff (01/17/18 00:39) Comprehensive Metabolic Panel (01/17/18 00:39) Lactic Acid Analyzer (01/17/18 00:39) Magnesium (01/17/18 00:39) Blood Culture (01/17/18 00:39) Saline Lock/Iv-Start (01/17/18 00:39) Ns Iv 1000 Ml (Sodium Chloride 0.9%) (01/17/18 00:39) Ondansetron Injection (Zofran Injectio (01/17/18 00:45) Fentanyl Injection (Sublimaze Injection (01/17/18 00:45) Ns Iv 1000 Ml (Sodium Chloride 0.9%) (01/17/18 00:43) Piperacillin Sodium/Tazobactam (Zosyn Vi (01/17/18 01:00) Manual Differential (01/17/18 00:20) Iohexol Injection (Omnipaque 350 Mg/Ml 1 (01/17/18 01:30) Ns (Ivpb) (Sodium Chloride 0.9%) (01/17/18 01:30) Piperacillin Sodium/Tazobactam (Zosyn Vi (01/17/18 01:53) Ns (Ivpb) (Sodium Chloride 0.9% Ivpb Bag (01/17/18 01:53) Urine Culture (01/17/18 01:55) Lipase (01/17/18 02:41) Medications Given in ED Current Medications Medications Dose Ordered Sig/Miri Route Start Time Stop Time Status Last Admin Dose Admin Fentanyl Citrate 50 mcg ONCE ONCE IVP 01/17/18 00:45 01/17/18 00:46 DC 01/17/18 01:00 50 MCG Iohexol 100 ml ONCE ONCE IV 01/17/18 01:30 01/17/18 01:31 DC 01/17/18 01:30 100 ML Ondansetron HCl 4 mg ONCE ONCE IVP 01/17/18 00:45 01/17/18 00:46 DC 01/17/18 01:00 4 MG Piperacillin Sod/ Tazobactam Sod 4.5 gm/Sodium Chloride 100 ml @ 200 mls/hr ONCE ONCE IV 01/17/18 01:00 01/17/18 01:29 DC 01/17/18 02:11 200 MLS/HR Sodium Chloride 250 ml ONCE ONCE IV 01/17/18 01:30 01/17/18 01:31 DC 01/17/18 01:31 80 ML Sodium Chloride 1,000 ml @ 0 mls/hr Q0M ONCE IV 01/17/18 00:43 01/17/18 00:44 DC 01/17/18 01:00 0 MLS/HR Vital Signs/I&O Vital Sign - Last 12Hours 01/17/18 00:15 Temp 98.2 Pulse 78 Resp 18 B/P (MAP) 132/59 (83) Pulse Ox 92 Blood Pressure Mean: 83 Progress Note : Time: 02:53 Progress Note Likely UTI versus pyelonephritis. CT imaging does demonstrate head of the pancreas with possible mild stranding so we'll add a lipase. More than likely this is reactionary to her recent vomiting. We have selected Zosyn even flexes on her allergy listed unlikely that these allergies are really she can't tell me what they cause. Diagnostic Imaging Diagonstic Imaging: CT (with and without contrast) Plain Films/CT/US/NM/MRI: abdomen, pelvis Comments Head and uncinate process of the pancreas appear edematous with questionable minimal surrounding mesenteric stranding, may suggest early pancreatitis. Please correlate with clinical laboratory findings. Mild wall thickening of the urinary bladder in the anterior right lateral aspect measuring up to 8 mm that may suggest muscle hypertrophy, postoperative changes versus cystitis. Correlate with clinical laboratory findings. Reviewed: Reviewed [place] Study (stat read), Reviewed by Me Departure Communication (Admissions) Time/Spoke to Admitting Phy: 00:[address] Hines: Discussed case lab imaging findings and plans to place inpatient on Zosyn given her many medical allergies and he agrees with this plan. Impression Impression: Primary Impression: Urinary tract infection Qualified Codes: N30.00 - Acute cystitis without hematuria Additional Impression: Pancreatitis Qualified Codes: K85.90 - Acute pancreatitis without necrosis or infection, unspecified Disposition: 09 ADMITTED INPATIENT Condition: Improved Admissions Decision to Admit Reason: Admit from ER (General) Decision to Admit/Date: Jan 17, 2018 Time/Decision to Admit Time: 00:50 Departure-Patient Inst. Referrals: ALLISON GLORIA MD (PCP/Family) Primary Care Physician Copy Copies To 1: JUDITH HINES MD; ALLISON GLORIA MD Copies To 2: MUNIR ROCHE MD, TITUS J Jan 17, 2018 00:46
[2018-01-17 00:49] LABS: BASOPHILS % (AUTO) 0 % (0-10); EOSINOPHILS # (AUTO) 0.2 10^3/uL (0.0-0.3); EOSINOPHILS % (AUTO) 1 % (0-10); HEMATOCRIT 35 % (35-52); HEMOGLOBIN 11.5 G/DL (11.5-16.0); LYMPHOCYTES % (AUTO) 10 % (12-44); MEAN CORPUSCULAR HEMOGLOBIN 29 PG (25-34); MEAN CORPUSCULAR HGB CONC 33 G/DL (32-36); MEAN CORPUSCULAR VOLUME 90 FL (80-99); MEAN PLATELET VOLUME 9.2 FL (7.4-10.4); MONOCYTES # (AUTO) 1.2 X 10^3 (0.0-1.0); MONOCYTES % (AUTO) 6 % (0-12); NEUTROPHILS # (AUTO) 16.7 X 10^3 (1.8-7.8); NEUTROPHILS % (AUTO) 83 % (42-75); PLATELET COUNT 304 10^3/uL (130-400); RED BLOOD COUNT 3.92 10^6/uL (4.35-5.85); RED CELL DISTRIBUTION WIDTH 13.7 % (10.0-14.5); WHITE BLOOD COUNT 20.2 10^3/uL (4.3-11.0)
[2018-01-17] MEDS ORDERED: PIPERACILLIN SODIUM/TAZOBACTAM 4.5 GM in NS (IVPB) 100 ML IV ONE ×2 (01:00→05:00)
[2018-01-17 01:02] LABS: ALANINE AMINOTRANSFERASE 45 U/L (0-55); ALBUMIN 3.9 GM/DL (3.2-4.5); ALKALINE PHOSPHATASE 107 U/L (40-136); BILIRUBIN,TOTAL 0.8 MG/DL (0.1-1.0); BUN/CREATININE RATIO 21; CALCIUM 9.6 MG/DL (8.5-10.1); CARBON DIOXIDE 18 MMOL/L (21-32); CHLORIDE 104 MMOL/L (98-107); CREATININE SERUM 0.89 MG/DL (0.60-1.30); GFR ESTIMATED > 60; GLUCOSE 203 MG/DL (70-105); MAGNESIUM 1.5 MG/DL (1.8-2.4); POTASSIUM 4.2 MMOL/L (3.6-5.0); SODIUM 135 MMOL/L (135-145); TOTAL PROTEIN 6.6 GM/DL (6.4-8.2)
[2018-01-17 01:03] LABS: BAND NEUTROPHILS 1 %; BASOPHILS % (MANUAL) 0 %; EOSINOPHILS % (MANUAL) 2 %; LYMPHOCYTES % (MANUAL) 10 %; MONOCYTES % (MANUAL) 4 %; NEUTROPHILS % (MANUAL) 83 %; RBC MORPH NORMAL
[2018-01-17] MEDS ORDERED: IOHEXOL 350 MG/ML 100 ML (OMNIPAQUE 350) VIAL IV ONE (01:30)
[2018-01-17] MEDS ORDERED: NS 250 ML (IVPB) BAG IV ONE (01:30)
[2018-01-17] MEDS ORDERED: NS (IVPB) 100 ML ONE (01:53)
[2018-01-17] MEDS ORDERED: PIPERACILLIN/TAZO 4.5 GM VIAL (ZOSYN) IV ONE (01:53)
[2018-01-17 02:07] LABS: GLUCOSE, URINE (UA) NEGATIVE (NEGATIVE); KETONES,URINE NEGATIVE (NEGATIVE); LEUKOCYTE ESTERASE ,URINE 3+ (NEGATIVE); NITRITE,URINE POSITIVE (NEGATIVE); PH,URINE 5 (5-9); PROTEIN,URINE 2+ (NEGATIVE); UROBILINOGEN,URINE 1 MG/DL (NORMAL)
[2018-01-17 02:08] LABS: BILIRUBIN,URINE 1+ (NEGATIVE)
[2018-01-17 02:10] LABS: CLARITY,URINE SLIGHTLY CLOUDY
[2018-01-17 02:16] LABS: COLOR,URINE ORANGE
[2018-01-17 02:17] LABS: BACTERIA,URINE MODERATE /HPF; WBC,URINE >100 /HPF
--- OUTSIDE RECORDS SUMMARY | 2018-01-17 03:19 | XMS REPORT | Continuity of Care Document ---
Author Author [facility] Organization [facility] Address Unknown Phone Unavailable Allergies Active Description Code Type Severity Reaction Onset Reported/Identified Relationship to Patient Clinical Status Yes metronidazole [id number] Drug Allergy Moderate hives 03/20/2017 Yes ciprofloxacin [id number] Drug Allergy Unknown ITCHING 03/20/2017 Yes Sulfa (Sulfonamide Antibiotics) [id number] Drug Allergy Unknown N/A 2016 Medications There [...] FACP CCDS Ot 414.01 CORONARY ATHEROSCLEROSIS OF [place] CORON 08/05/2014 JAZMIN ROPER MD, FACC FACP [...] V74.8 08/18/2015 Ot 599.0 08/18/2015 NEEMA HENSLEY CREDIT AND COLLECTIONS ANALYST Ot 414.00 08/18/2015 NEEMA HENSLEY CREDIT AND COLLECTIONS ANALYST Ot 786.09 08/18/2015 KAYLEIGH RAHMAN, FELIBERTO Chow [...] GLORIA MD R Ot R11.10 09/01/2015 ALLISON LGORIA MD R Ot R19.7 09/07/2015 ALLISON GLORIA MD R Ot D50.0 IRON DEFICIENCY ANEMIA SECONDARY TO BLOO 09/07/2015 ALLISON GLORIA MD R Ot E11.9 TYPE 2 DIABETES MELLITUS WITHOUT COMPLIC 09/07/2015 ALLISON GLORIA MD R Ot E78.0 PURE HYPERCHOLESTEROLEMIA 09/07/2015 ALLISON GLORIA MD R Ot I25.10 ATHSCL HEART DISEASE OF [place] CORONARY 09/07/2015 ALLISON GLORIA MD R Ot [...] MD Ot I25.10 ATHSCL HEART DISEASE OF [place] CORONARY 10/12/2015 ALBERTO NAZARIO MD Ot K21.9 [...] URIN TRACT INFECTION NOS 10/11/2016 NEEMA HENSLEY CREDIT AND COLLECTIONS ANALYST Ot 414.00 CORON ATHEROSCLER NOS TYPE VESSEL, NATIV 10/11/2016 NEEMA HENSLEY CREDIT AND COLLECTIONS ANALYST Ot 786.09 RESPIRATORY ABNORM NEC 10/11/2016 KAYLEIGH [...] CCDS Ot I25.10 ATHSCL HEART DISEASE OF [place] CORONARY 10/11/2016 JACQUELIN RAHMAN FACC, ALI FACP [...] CCDS Ot I25.10 ATHSCL HEART DISEASE OF [place] CORONARY 10/11/2016 JACQUELIN NORWOODC, ALI FACP CCDS [...] CCDS Ot I25.10 ATHSCL HEART DISEASE OF [place] CORONARY 10/12/2016 JACQUELIN RAHMAN FACC, ALI FACP [...] UNSP ACUTE OR CHRONIC, 10/27/2016 YUNIER, GRIFFIN CREDIT AND COLLECTIONS ANALYST Ot E11.9 TYPE 2 DIABETES MELLITUS WITHOUT COMPLIC 10/27/2016 YUNIER, GRIFFIN CREDIT AND COLLECTIONS ANALYST Ot K76.0 FATTY (CHANGE OF) LIVER, NOT ELSEWHERE C 10/27/2016 YUNIER, GRIFFIN CREDIT AND COLLECTIONS ANALYST Ot N32.9 BLADDER DISORDER, UNSPECIFIED 10/27/2016 YUNIER, GRIFFIN CREDIT AND COLLECTIONS ANALYST Ot R19.7 DIARRHEA, UNSPECIFIED 10/27/2016 YUNIER, GRIFFIN CREDIT AND COLLECTIONS ANALYST Ot Z79.82 CORRECTION (CURRENT) USE OF ASPIRIN 10/27/2016 YUNIER, GRIFFIN CREDIT AND COLLECTIONS ANALYST Ot Z79.84 FBI INVESTIGATOR (CURRENT) USE OF ORAL HYPOGLYC 10/27/2016 YUNIER, GRIFFIN CREDIT AND COLLECTIONS ANALYST Ot Z79.899 OTHER FBI INVESTIGATOR (CURRENT) DRUG THERAPY 10/28/2016 YUNIER, GRIFFIN CREDIT AND COLLECTIONS ANALYST Ot E11.9 TYPE 2 DIABETES MELLITUS WITHOUT COMPLIC 10/28/2016 YUNIER, GRIFFIN CREDIT AND COLLECTIONS ANALYST Ot K76.0 FATTY (CHANGE OF) LIVER, NOT ELSEWHERE C 10/28/2016 YUNIER, GRIFFIN CREDIT AND COLLECTIONS ANALYST Ot N32.9 BLADDER DISORDER, UNSPECIFIED 10/28/2016 YUNIER, GRIFFIN CREDIT AND COLLECTIONS ANALYST Ot R19.7 DIARRHEA, UNSPECIFIED 10/28/2016 YUNIER, GRIFFIN CREDIT AND COLLECTIONS ANALYST Ot Z79.82 CORRECTION (CURRENT) USE OF ASPIRIN 10/28/2016 YUNIER, GRIFFIN CREDIT AND COLLECTIONS ANALYST Ot Z79.84 FBI INVESTIGATOR (CURRENT) USE OF ORAL HYPOGLYC 10/28/2016 YUNIER, GRIFFIN CREDIT AND COLLECTIONS ANALYST Ot Z79.899 OTHER CORRECTION (CURRENT) DRUG THERAPY 10/28/2016 LOPEZ KEE TEACHER PHYSICALLY IMPAIRED Ot E11.9 TYPE 2 DIABETES MELLITUS WITHOUT COMPLIC 10/28/2016 LOPEZ KEE APRN Ot N32.9 BLADDER DISORDER, UNSPECIFIED 10/28/2016 LOPEZ KEE TEACHER PHYSICALLY IMPAIRED Ot R11.2 NAUSEA WITH VOMITING, UNSPECIFIED 10/28/2016 LOPEZ KEE TEACHER PHYSICALLY IMPAIRED Ot R19.7 DIARRHEA, UNSPECIFIED 10/28/2016 LOPEZ KEE TEACHER PHYSICALLY IMPAIRED Ot Z79.82 FBI INVESTIGATOR (CURRENT) USE OF ASPIRIN 10/28/2016 LOPEZ KEE TEACHER PHYSICALLY IMPAIRED Ot Z79.84 CORRECTION (CURRENT) USE OF ORAL HYPOGLYC 10/28/2016 LOPEZ KEE TEACHER PHYSICALLY IMPAIRED Ot Z79.899 OTHER FBI INVESTIGATOR (CURRENT) DRUG THERAPY 10/30/2016 YUNIER GRIFFIN CREDIT AND COLLECTIONS ANALYST Ot E11.9 TYPE 2 DIABETES MELLITUS WITHOUT COMPLIC 10/30/2016 YUNIER GRIFFIN CREDIT AND COLLECTIONS ANALYST Ot K76.0 FATTY (CHANGE OF) LIVER, NOT ELSEWHERE C 10/30/2016 YUNIER GRIFFIN CREDIT AND COLLECTIONS ANALYST Ot N32.9 BLADDER DISORDER, UNSPECIFIED 10/30/2016 YUNIER GRIFFIN CREDIT AND COLLECTIONS ANALYST Ot R19.7 DIARRHEA, UNSPECIFIED 10/30/2016 YUNIER, GRIFFIN CREDIT AND COLLECTIONS ANALYST Ot Z79.82 FBI INVESTIGATOR (CURRENT) USE OF ASPIRIN 10/30/2016 YUNIER GRIFFIN CREDIT AND COLLECTIONS ANALYST Ot Z79.84 FBI INVESTIGATOR (CURRENT) USE OF ORAL HYPOGLYC 10/30/2016 YUNIER GRIFFIN CREDIT AND COLLECTIONS ANALYST Ot Z79.899 OTHER FBI INVESTIGATOR (CURRENT) DRUG THERAPY 11/01/2016 LOPEZ KEE APRN Ot E11.9 TYPE 2 DIABETES MELLITUS WITHOUT COMPLIC 11/01/2016 LOPEZ KEE TEACHER PHYSICALLY IMPAIRED Ot N32.9 BLADDER DISORDER, UNSPECIFIED 11/01/2016 LOPEZ KEE TEACHER PHYSICALLY IMPAIRED Ot R11.2 NAUSEA WITH VOMITING, UNSPECIFIED 11/01/2016 LOPEZ KEE TEACHER PHYSICALLY IMPAIRED Ot R19.7 DIARRHEA, UNSPECIFIED 11/01/2016 LOPEZ KEE TEACHER PHYSICALLY IMPAIRED Ot Z79.82 FBI INVESTIGATOR (CURRENT) USE OF ASPIRIN 11/01/2016 LOPEZ KEE TEACHER PHYSICALLY IMPAIRED Ot Z79.84 CORRECTION (CURRENT) USE OF ORAL HYPOGLYC 11/01/2016 LOPEZ KEE TEACHER PHYSICALLY IMPAIRED Ot Z79.899 OTHER CORRECTION (CURRENT) DRUG THERAPY 11/07/2016 JACQUELIN RAHMAN FACC, JAZMIN FACP CCDS Ot E78.4 OTHER HYPERLIPIDEMIA 11/07/2016 JACQUELIN RAHMAN FACC, JAZMIN FACP CCDS Ot I25.10 ATHSCL HEART DISEASE OF [place] CORONARY 11/07/2016 JACQUELIN RAHMAN FACC, JAZMIN FACP CCDS Ot 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 11/07/2016 JACQUELIN RAHMAN 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 11/07/2016 TRESSA URIASEN L Ot L50.9 URTICARIA, UNSPECIFIED 11/07/2016 NATHAN URIAS Ot Z79.82 FBI INVESTIGATOR (CURRENT) USE OF ASPIRIN 11/07/2016 NATHAN URIAS L Ot Z79.899 OTHER CORRECTION (CURRENT) DRUG THERAPY 11/15/2016 TRESSA URIASEN L Ot 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 11/15/2016 TRESSA URIASEN L Ot L50.9 URTICARIA, UNSPECIFIED 11/15/2016 NATHAN URIAS Ot E11.9 TYPE 2 DIABETES MELLITUS WITHOUT COMPLIC 11/15/2016 NATHAN URIAS L Ot 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 11/15/2016 NATHAN URIAS L Ot L50.9 URTICARIA, UNSPECIFIED 11/15/2016 NATHAN URIAS Ot Z79.82 CORRECTION (CURRENT) USE OF ASPIRIN 11/15/2016 NATHAN URIAS Ot Z79.899 OTHER CORRECTION (CURRENT) DRUG THERAPY 11/15/2016 MUNIR ROCHE MD Ot 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 11/15/2016 MUNIR ROCHE MD Ot Z01.818 ENCOUNTER FOR OTHER PREPROCEDURAL EXAMIN 11/16/2016 MUNIR ROCHE MD Ot 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 11/16/2016 MUINR ROCHE MD Ot E11.9 TYPE 2 DIABETES MELLITUS WITHOUT COMPLIC 11/16/2016 MUNIR ROCHE MD Ot Z11.2 ENCOUNTER FOR SCREENING FOR OTHER BACTER 11/17/2016 NATHAN URIAS Ot E11.9 TYPE 2 DIABETES MELLITUS WITHOUT COMPLIC 11/17/2016 NATHAN URIAS Ot 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 11/17/2016 NATHAN URIAS Ot L50.9 URTICARIA, UNSPECIFIED 11/17/2016 NATHAN URIAS Ot Z79.82 CORRECTION (CURRENT) USE OF ASPIRIN 11/17/2016 NATHAN URIAS Ot Z79.899 OTHER CORRECTION (CURRENT) DRUG THERAPY 11/17/2016 MUNIR ROCHE MD [...] FOR OTHER BACTER 12/21/2016 DOV, JOYCE R TEACHER PHYSICALLY IMPAIRED Ot R11.10 VOMITING, UNSPECIFIED 12/21/2016 DOV JOYCE R TEACHER PHYSICALLY IMPAIRED Ot R19.7 DIARRHEA, UNSPECIFIED 12/27/2016 FAIZAN RAHMAN, ALLISON R Ot E04.0 NONTOXIC DIFFUSE GOITER 01/26/2017 JOYCE MONAE R TEACHER PHYSICALLY IMPAIRED Ot R11.10 VOMITING, UNSPECIFIED 01/26/2017 DOV, JOYCE R TEACHER PHYSICALLY IMPAIRED Ot R19.7 DIARRHEA, UNSPECIFIED 01/28/2017 FAIZAN RAHMAN, ALLISON R Ot R11.10 VOMITING, UNSPECIFIED 01/28/2017 FAIZAN RAHMAN, ALLISON R Ot R19.7 DIARRHEA, UNSPECIFIED 02/22/2017 LOPEZ KEE APRN Ot E11.9 TYPE 2 DIABETES MELLITUS WITHOUT COMPLIC 02/22/2017 LOPEZ KEE APRN Ot K02.9 DENTAL CARIES, UNSPECIFIED 02/22/2017 LOPEZ KEE APRN Ot K08.9 DISORDER OF TEETH AND SUPPORTING STRUCTU 02/22/2017 LOPEZ KEE TEACHER PHYSICALLY IMPAIRED Ot Z79.4 FBI INVESTIGATOR (CURRENT) USE OF INSULIN 02/23/2017 LOPEZ KEE TEACHER PHYSICALLY IMPAIRED Ot E11.9 TYPE 2 DIABETES MELLITUS WITHOUT COMPLIC 02/23/2017 LOPEZ KEE TEACHER PHYSICALLY IMPAIRED Ot K02.9 DENTAL CARIES, UNSPECIFIED 02/23/2017 LOPEZ KEE TEACHER PHYSICALLY IMPAIRED Ot K08.9 DISORDER OF TEETH AND SUPPORTING STRUCTU 02/23/2017 LOPEZ KEE TEACHER PHYSICALLY IMPAIRED Ot Z79.4 CORRECTION (CURRENT) USE OF INSULIN 03/01/2017 LOPEZ KEE TEACHER PHYSICALLY IMPAIRED Ot E11.9 TYPE 2 DIABETES MELLITUS WITHOUT COMPLIC 03/01/2017 LOPEZ KEE TEACHER PHYSICALLY IMPAIRED Ot K02.9 DENTAL CARIES, UNSPECIFIED 03/01/2017 LOPEZ KEE TEACHER PHYSICALLY IMPAIRED Ot K08.9 DISORDER OF TEETH AND SUPPORTING STRUCTU 03/01/2017 LOPEZ KEE TEACHER PHYSICALLY IMPAIRED Ot Z79.4 CORRECTION (CURRENT) USE OF INSULIN 03/17/2017 Ot R11.10 VOMITING, UNSPECIFIED 03/17/2017 Ot R19.7 DIARRHEA, UNSPECIFIED 03/17/2017 JOYCE MONAE R TEACHER PHYSICALLY IMPAIRED Ot R11.10 VOMITING, UNSPECIFIED 03/17/2017 JOYCE MONAE TEACHER PHYSICALLY IMPAIRED Ot R19.7 DIARRHEA, UNSPECIFIED 03/17/2017 LINDSEY RAHMAN, [...] URIN TRACT INFECTION NOS 03/17/2017 NEEMA HENSLEY CREDIT AND COLLECTIONS ANALYST Ot 414.00 CORON ATHEROSCLER NOS TYPE VESSEL, NATIV 03/17/2017 NEEMA HENSLEY CREDIT AND COLLECTIONS ANALYST Ot 786.09 RESPIRATORY ABNORM NEC 03/17/2017 KAYLEIGH [...] CCDS Ot I25.10 ATHSCL HEART DISEASE OF [place] CORONARY 03/17/2017 JACQUELIN RAHMAN FACC, JAZMIN FACP [...] CCDS Ot I25.10 ATHSCL HEART DISEASE OF [place] CORONARY 03/17/2017 JACQUELIN RAHMAN FACC, ALI FACP [...] FOR PREPROCEDURAL LABORATORY E 03/17/2017 ALBERTO NAZARIO MD, Ot Z11.2 ENCOUNTER FOR SCREENING FOR OTHER BACTER 03/17/2017 Ot R11.10 VOMITING, UNSPECIFIED 03/17/2017 Ot R19.7 DIARRHEA, UNSPECIFIED 03/17/2017 JACQUELIN RAHMAN FACC, ALI FACP CCDS Ot E78.4 OTHER HYPERLIPIDEMIA 03/17/2017 JACQUELIN RAHMAN [facility], ALI FACP CCDS Ot I25.10 ATHSCL HEART DISEASE OF [place] CORONARY 03/17/2017 JACQUELIN RAHMAN [facility], ALI FACP CCDS Ot 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 03/17/2017 JACQUELIN RAHMAN FACEllen, ALI FACP CCDS Ot K21.9 GASTRO-ESOPHAGEAL REFLUX DISEASE WITHOUT 03/17/[address] [facility] FACP CCDS Ot R53.83 OTHER FATIGUE 03/17/2017 LINDSEY RAHMAN, DIANE Alejo Ot R10.13 EPIGASTRIC PAIN 03/17/2017 LINDSEY RAHMAN, DIANE Alejo Ot Z01.818 ENCOUNTER FOR OTHER PREPROCEDURAL EXAMIN 03/17/2017 FAIZAN RAHMAN, ALLISON R Ot E04.0 NONTOXIC DIFFUSE GOITER 03/17/2017 FAIZAN RAHMAN ALLISON R Ot E04.0 NONTOXIC DIFFUSE GOITER 03/20/2017 Ot R11.10 VOMITING, UNSPECIFIED 03/20/2017 Ot R19.7 DIARRHEA, UNSPECIFIED 03/20/2017 JOYCE MONAE R TEACHER PHYSICALLY IMPAIRED Ot R11.10 VOMITING, UNSPECIFIED 03/20/2017 JOYCE MONAE R TEACHER PHYSICALLY IMPAIRED Ot R19.7 DIARRHEA, UNSPECIFIED 03/20/2017 DIANE PORTILLO MD Ot E11.9 TYPE 2 DIABETES MELLITUS WITHOUT COMPLIC 03/20/2017 DIANE PORTILLO MD Ot 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, SINGLE EPISOD 03/20/2017 DIANE PORTILLO MD Ot I10 ESSENTIAL (PRIMARY) HYPERTENSION 03/20/2017 DIANE PORTILLO MD Ot I25.10 ATHSCL HEART DISEASE OF [place] CORONARY 03/20/2017 DIANE PORTILLO MD Ot K20.9 ESOPHAGITIS, UNSPECIFIED 03/20/2017 DIANE PORTILLO MD Ot K25.9 GASTRIC ULCER, UNSP ACUTE OR CHRONIC, 03/22/2017 DIANE PORTILLO MD Ot E11.9 TYPE 2 DIABETES MELLITUS WITHOUT COMPLIC 03/22/2017 DIANE PORTILLO MD Ot 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, SINGLE EPISOD 03/22/2017 DIANE PORTILLO MD Ot I10 ESSENTIAL (PRIMARY) HYPERTENSION 03/22/2017 DIANE PORTILLO MD Ot I25.10 ATHSCL HEART DISEASE OF [place] CORONARY 03/22/2017 LINDSEY RAHMAN, DIANE Alejo Ot [...] MD Ot I25.10 ATHSCL HEART DISEASE OF [place] CORONARY 03/26/2017 DIANE PORTILLO MD Ot K20.9 ESOPHAGITIS, UNSPECIFIED 03/26/2017 DIANE PORTILLO MD Ot K25.9 GASTRIC ULCER, UNSP ACUTE OR CHRONIC, 04/27/2017 Ot 599.0 URIN TRACT INFECTION NOS 04/27/2017 NEEMA HESNLEY CREDIT AND COLLECTIONS ANALYST Ot 414.00 CORON ATHEROSCLER NOS TYPE VESSEL, NATIV 04/27/2017 NEEMA HENSLEY CREDIT AND COLLECTIONS ANALYST Ot 786.09 RESPIRATORY ABNORM NEC 04/27/2017 KAYLEIGH [...] CCDS Ot I25.10 ATHSCL HEART DISEASE OF [place] CORONARY 04/27/2017 JACQUELIN RAHMAN FACC, ALI FACP [...] CCDS Ot I25.10 ATHSCL HEART DISEASE OF [place] CORONARY 04/27/2017 JACQUELIN RAHMAN FACC, ALI FACP [...] CCDS Ot I25.10 ATHSCL HEART DISEASE OF [place] CORONARY 04/27/2017 JACQUELIN RAHMAN FAC, ALI FACP [...] MD Ot I25.10 ATHSCL HEART DISEASE OF [place] CORONARY 04/28/2017 NOLVIA GUTIERREZ MD Ot I73.9 PERIPHERAL VASCULAR DISEASE, UNSPECIFIED 04/28/2017 NOLVIA GUTIERREZ MD Ot K21.9 GASTRO-ESOPHAGEAL REFLUX DISEASE WITHOUT 04/28/2017 NOLVIA GUTIERREZ MD Ot R07.9 CHEST PAIN, UNSPECIFIED 04/28/2017 NOLVIA GUTIERREZ MD Ot R10.84 GENERALIZED ABDOMINAL PAIN 04/28/2017 NOLVIA GUTIERREZ MD Ot R11.2 NAUSEA WITH VOMITING, UNSPECIFIED 04/28/2017 NOLVIA GUTIERREZ MD Ot Z79.4 FBI INVESTIGATOR (CURRENT) USE OF INSULIN 04/28/2017 NOLVIA GUTIERREZ MD, Ot Z95.820 PERIPHERAL VASCULAR ANGIOPLASTY STATUS W 04/28/2017 NOLVIA GUTIERERZ MD Ot E11.9 TYPE 2 DIABETES MELLITUS WITHOUT COMPLIC 04/28/2017 NOLVIA GUTIERREZ MD Ot E78.00 PURE HYPERCHOLESTEROLEMIA, UNSPECIFIED 04/28/2017 NOLVIA GUTIERREZ MD Ot I10 ESSENTIAL (PRIMARY) HYPERTENSION 04/28/2017 NOLVIA GUTIERREZ MD Ot I25.10 ATHSCL HEART DISEASE OF [place] CORONARY 04/28/2017 NOLVIA GUTIERREZ MD Ot I73.9 PERIPHERAL VASCULAR DISEASE, UNSPECIFIED 04/28/2017 NOLVIA GUTIERREZ MD Ot K21.9 GASTRO-ESOPHAGEAL REFLUX DISEASE WITHOUT 04/28/2017 NOLVIA GUTIERREZ MD Ot R07.9 CHEST PAIN, UNSPECIFIED 04/28/2017 NOLVIA GUTIERREZ MD Ot R10.84 GENERALIZED ABDOMINAL PAIN 04/28/2017 NOLVIA GUTIERREZ MD Ot R11.2 NAUSEA WITH VOMITING, UNSPECIFIED 04/28/2017 NOLVIA GUTIERREZ MD, Ot Z79.4 FBI INVESTIGATOR (CURRENT) USE OF INSULIN 04/28/2017 NOLVIA GUTIERREZ MD Ot Z95.820 PERIPHERAL VASCULAR ANGIOPLASTY STATUS W 04/29/2017 ALLISON GLORIA MD R Ot R11.10 VOMITING, UNSPECIFIED 04/29/2017 ALLISON GLORIA MD R Ot R19.7 DIARRHEA, UNSPECIFIED 01/02/2018 Ot 599.0 URIN TRACT INFECTION NOS 01/02/2018 NEEMA HENSLEY CREDIT AND COLLECTIONS ANALYST Ot 414.00 CORON ATHEROSCLER NOS TYPE VESSEL, NATIV 01/02/2018 NEEMA HENSLEY CREDIT AND COLLECTIONS ANALYST Ot 786.09 RESPIRATORY ABNORM NEC 01/02/2018 KAYLEIGH [...] CCDS Ot I25.10 ATHSCL HEART DISEASE OF [place] CORONARY 01/02/2018 JACQUELIN NORWOODC, ALI FACP CCDS [...] CCDS Ot I25.10 ATHSCL HEART DISEASE OF [place] CORONARY 01/02/2018 JACQUELIN RAHMAN FACC, ALI FACP [...] CCDS Ot I25.10 ATHSCL HEART DISEASE OF [place] CORONARY 01/02/2018 JACQUELIN RAHMAN FACC, ALI FACP [...] CCDS Ot I25.10 ATHSCL HEART DISEASE OF [place] CORONARY Procedures Code Description Performed By Performed On 59.79 URIN INCONTIN REPAIR NEC 10/17/2011 70.24 VAGINAL BIOPSY 10/17/2011 70.50 CYSTOCEL/RECTOCEL REPAIR 10/17/2011 70.8 VAGINAL VAULT OBLITERAT 10/17/2011 [id number] EXCISION OF HEMORRHOIDAL PLEXUS, OPEN AP 10/08/2015 [...] Growth NRG Stool bacteria identification by culture [id number] NRG NEGATIVE FOR 0157 NEGATIVE FOR E [...] 09:39 THYROID STIMULATING HORMONE 1.18 u[iU]/mL 0.35-4.94 Complete blood count (CBC) with automated white blood cell (WBC) differential - 01/17/18 00:20 Blood leukocytes automated count (number/volume) 20.2 10*3/uL 4.3-11.0 Blood erythrocytes automated count (number/volume) 3.92 10*6/uL 4.35-5.85 Venous blood hemoglobin measurement (mass/volume) 11.5 g/dL 11.5-16.0 Blood hematocrit (volume fraction) 35 % 35-52 Automated erythrocyte mean corpuscular volume 90 [foz_us] 80-99 Automated erythrocyte mean corpuscular hemoglobin (mass per erythrocyte) 29 pg 25-34 Automated erythrocyte mean corpuscular hemoglobin concentration measurement ( mass/volume) 33 g/dL 32-36 Automated erythrocyte distribution width ratio 13.7 % 10.0-14.5 Automated blood platelet count (count/volume) 304 10*3/uL 130-400 Automated blood platelet mean volume measurement 9.2 [foz_us] 7.4-10.4 Automated blood neutrophils/100 leukocytes 83 % 42-75 Automated blood lymphocytes/100 leukocytes 10 % 12-44 Blood monocytes/100 leukocytes 6 % 0-12 Automated blood eosinophils/100 leukocytes 1 % 0-10 Automated blood basophils/100 leukocytes 0 % 0-10 Blood neutrophils automated count (number/volume) 16.7 10*3 1.8-7.8 Blood lymphocytes automated count (number/volume) 2.0 10*3 1.0-4.0 Blood monocytes automated count (number/volume) 1.2 10*3 0.0-1.0 Automated eosinophil count 0.2 10*3/uL 0.0-0.3 Automated blood basophil count (count/volume) 0.0 10*3/uL 0.0-0.1 Comprehensive metabolic panel - 01/17/18 00:20 Serum or plasma sodium measurement (moles/volume) 135 mmol/L 135-145 Serum or plasma potassium measurement (moles/volume) 4.2 mmol/L 3.6-5.0 Serum or plasma chloride measurement (moles/volume) 104 mmol/L 98-107 Carbon dioxide 18 mmol/L 21-32 Serum or plasma anion gap determination (moles/volume) 13 mmol/L 5-14 Serum or plasma urea nitrogen measurement (mass/volume) 19 mg/dL 7-18 Serum or plasma creatinine measurement (mass/volume) 0.89 mg/dL 0.60-1.30 Serum or plasma urea nitrogen/creatinine mass ratio 21 NRG Serum or plasma creatinine measurement with calculation of estimated glomerular filtration rate > NRG Serum or plasma glucose measurement (mass/volume) 203 mg/dL 70-105 Serum or plasma calcium measurement (mass/volume) 9.6 mg/dL 8.5-10.1 Serum or plasma total bilirubin measurement (mass/volume) 0.8 mg/dL 0.1-1.0 Serum or plasma alkaline phosphatase measurement (enzymatic activity/volume) 107 U/L 40-136 Serum or plasma aspartate aminotransferase measurement (enzymatic activity/ volume) 73 U/L 5-34 Serum or plasma alanine aminotransferase measurement (enzymatic activity/volume ) 45 U/L 0-55 Serum or plasma protein measurement (mass/volume) 6.6 g/dL 6.4-8.2 Serum or plasma albumin measurement (mass/volume) 3.9 g/dL 3.2-4.5 Magnesium - 01/17/18 00:20 Magnesium 1.5 mg/dL 1.8-2.4 Blood manual differential performed detection - 01/17/18 00:20 Blood monocytes/100 leukocytes 4 % NRG Manual blood segmented neutrophils/100 leukocytes 83 % NRG Blood band neutrophils/100 leukocytes 1 % NRG Manual blood lymphocytes/100 leukocytes 10 % NRG Manual eosinophils/100 leukocytes in nose 2 % NRG Manual blood basophils/100 leukocytes 0 % NRG Blood erythrocyte morphology finding identification NORMAL NRG Lipase - 01/17/18 00:20 Lipase 618 U/L 8-78 Blood lactic acid measurement (moles/volume) - 01/17/18 01:50 Blood lactic acid measurement (moles/volume) 1.39 mmol/L 0.50-2.00 Complete urinalysis with reflex to culture - 01/17/18 01:55 Urine color determination ORANGE NRG Urine clarity determination SLIGHTLY CLOUDY NRG Urine pH measurement by test strip 5 5-9 Specific gravity of urine by test strip 1.030 1.016- 1.022 Urine protein assay by test strip, semi-quantitative 2+ NEGATIVE Urine glucose detection by automated test strip NEGATIVE NEGATIVE Erythrocytes detection in urine sediment by light microscopy 2+ NEGATIVE Urine ketones detection by automated test strip NEGATIVE NEGATIVE Urine nitrite detection by test strip POSITIVE NEGATIVE Urine total bilirubin detection by test strip 1+ NEGATIVE Urine urobilinogen measurement by automated test strip (mass/volume) 1 mg/dL NORMAL Urine leukocyte esterase detection by dipstick 3+ NEGATIVE Automated urine sediment erythrocyte count by microscopy (number/high power field) NONE NRG Automated urine sediment leukocyte count by microscopy (number/high power field ) > [HPF] NRG Bacteria detection in urine sediment by light microscopy MODERATE NRG Squamous epithelial cells detection in urine sediment by light microscopy 10-25 NRG Crystals detection in urine sediment by light microscopy NONE NRG Casts detection in urine sediment by light microscopy NONE NRG Mucus detection in urine sediment by light microscopy NEGATIVE NRG Complete urinalysis with reflex to culture YES NRG Encounters ACCT No. Visit Date/Time Discharge Status Pt. Type Provider Facility Loc./Unit Complaint [id number] 01/11/2018 12:47:00 01/11/2018 23:59:59 CLS Outpatient ALLISON GLORIA MD [facility] RAD THYROMEGALY [id number] 01/11/2018 12:46:00 01/11/2018 23:59:59 CLS Outpatient JACQUELIN RAHMAN FACC, JAZMIN BLANCHARD CCDS [facility] CARD I25.10 CAD [id number] 01/02/2018 09:30:00 01/02/2018 23:59:59 CLS Outpatient ALLISON GLORIA MD [facility] LAB E01.0 [id number] 04/27/2017 23:01:00 04/28/2017 02:02:00 DIS Emergency BRENDA RAHMAN, NOLVIA T [facility] ER VOMITTING/WEAKNESS [id number] 03/20/2017 08:41:00 03/20/2017 11:50:00 DIS Outpatient DIANE PORTILLO MD [facility] ENDO ULCER [id number] 03/17/2017 05:50:00 03/17/2017 11:28:00 DIS Outpatient DIANE PORTILLO MD [facility] PREOP ULCERS [id number] 02/22/2017 20:10:00 02/22/2017 23:30:00 DIS Emergency LOPEZ KEE TEACHER PHYSICALLY IMPAIRED [facility] ER LEFT SIDE FACE PAIN [id number] 01/27/2017 00:10:00 01/27/2017 23:59:59 CLS Preadmit JOYCE MONAE TEACHER PHYSICALLY IMPAIRED [facility] LAB ACUTE DIARRHEA,VOMITING [id number] 11/28/2016 14:37:00 01/26/2017 00:01:00 DIS Outpatient JOYCE MONAE TEACHER PHYSICALLY IMPAIRED [facility] LAB ACUTE DIARRHEA, VOMITING [id number] 12/05/2016 13:39:00 12/05/2016 23:59:59 CLS Outpatient ALLISON GLORIA MD [facility] RAD GOITER DIFFUSE,NON TOXIC [id number] 11/28/2016 14:24:00 11/28/2016 23:59:59 CLS Outpatient ALLISON GLORIA MD [facility] LAB GOITER DIFFUSE,NONTOXIC [id number] 11/16/2016 20:06:00 11/18/2016 10:25:00 DIS Inpatient MUNIR ROCHE MD [facility] 4TH POST OP PAIN,BLADDER LEAKAGE EXTRAPERITONEAL [id number] 11/16/2016 05:58:00 11/16/2016 12:30:00 DIS Outpatient MUNIR ROCHE MD [facility] BLADDER TUMOR [id number] 11/15/2016 12:40:00 11/15/2016 12:53:00 DIS Outpatient MUNIR ROCHE MD [facility] PREOP BLADDER TUMOR [id number] 11/07/2016 13:01:00 11/07/2016 17:26:00 DIS Emergency NATHAN URIAS [facility] ER CONGESTION, WELTS, CONFUSION [id number] 10/28/2016 10:56:00 10/28/2016 12:25:00 DIS Emergency LOPEZ KEE APRN [facility] ER DIARRHEA [id number] 10/27/2016 11:12:00 10/27/2016 14:53:00 DIS Emergency GRIFFIN FAYE CREDIT AND COLLECTIONS ANALYST [facility] ER DIARRHEA/WEAKNESS [id number] 10/17/2016 09:52:00 10/17/2016 13:20:00 DIS Outpatient DIANE PORTILLO MD [facility] UPPER GASTRIC PAIN [id number] 10/13/2016 05:56:00 10/13/2016 23:59:59 CLS Outpatient DIANE PORTILLO MD [facility] PREOP UPPER GASTRIC PAIN [id number] 10/11/2016 07:58:00 10/11/2016 23:59:59 CLS Outpatient JACQUELIN RAHMAN FACC, JAZMIN BLANCHARD CCDS [facility] CARD CAD,CAROTID ARTERIAL DISEASE,HLP,GERD [id number] 05/19/2016 14:20:00 05/19/2016 17:21:00 DIS Emergency JUDITH HINES MD [facility] ER CONSTIPATION/ABD PAIN [id number] 11/13/2015 10:21:00 11/16/2015 08:50:00 DIS Inpatient ALLISON GLORIA MD [facility] 4TH Volume Depletion,Vomiting ,Diarrhea [id number] 11/08/2015 13:34:00 11/08/2015 16:55:00 DIS Emergency LIA RAHMAN, CARLTON Padilla [facility] ER POST OP/DIGESTION ISSUES/ VOMITING [id number] 10/11/2015 08:25:00 10/12/2015 17:33:00 DIS Inpatient ALBERTO NAZARIO MD [facility] 4TH POST OP HYPOXIA [id number] 10/06/2015 08:41:00 10/06/2015 23:59:59 CLS Outpatient ALBERTO NAZARIO MD [facility] PREOP HEMORRHOIDS [id number] 09/15/2015 10:36:00 09/15/2015 23:59:59 CLS Outpatient ALLISON GLORIA MD [facility] SDC ANEMIA BLOOD LOSS [id number] 09/03/2015 10:18:00 09/07/2015 09:00:00 DIS Inpatient ALLISON GLORIA MD [facility] 4TH ABD PAIN,FEVER,ANEMIA [id number] 09/01/2015 12:02:00 09/01/2015 23:59:59 CLS Outpatient ALLISON GLORIA MD [facility] RAD PESISTANT DIARRHEA AND VOMITTING [id number] 09/01/2015 11:26:00 09/01/2015 23:59:59 CLS Outpatient ALLISON GLORIA MD [facility] LAB PERSISTENT DIARRHEA, VOMITTING [id number] 08/21/2015 10:31:00 08/21/2015 23:59:59 CLS Outpatient JACQUELIN RAHMAN FACEllen, JAZMIN BLANCHARD CCDS [facility] CARD CAD,FATIGUE [id number] 08/18/2015 12:05:00 08/18/2015 23:59:59 CLS Outpatient JACQUELIN RAHMAN FACEllen, JAZMIN FACGeraldo CCDS [facility] CARD CAD,FATIGUE [id number] 04/02/2015 14:52:00 04/02/2015 23:59:59 CLS Outpatient ALLISON GLORIA MD [facility] RAD L MID/LOWER BACK PAIN [id number] 03/23/2015 14:00:00 03/23/2015 16:59:00 DIS Emergency NATHAN URIAS [facility] ER UPPER LEFT BACK PAIN [id number] 11/05/2014 09:50:00 11/05/2014 12:45:00 DIS Outpatient ALBERTO NAZARIO MD [facility] SDC REFLUX [id number] 10/31/2014 06:08:00 10/31/2014 23:59:59 CLS Outpatient ALBERTO NAZARIO MD [facility] PREOP REFLUX [id number] 08/05/2014 07:49:00 08/05/2014 16:55:00 DIS Outpatient JACQUELIN RAHMAN FACC, JAZMIN BLANCHARD CCDS [facility] CATH EXERTIONAL DSYPNEA,CAD,DM [id number] 05/16/2014 11:19:00 05/16/2014 23:59:59 CLS Outpatient ALLISON GLORIA MD [facility] RAD SCREENING [id number] 01/22/2014 07:30:00 01/22/2014 12:00:00 DIS Outpatient ALBERTO NAZARIO MD [facility] SDC HISTORY OF POLYPS [id number] 01/15/2014 07:31:00 01/15/2014 23:59:59 CLS Outpatient ALBERTO NAZARIO MD [facility] PREOP HISTORY OF POLYPS [id number] 10/03/2013 13:09:00 10/03/2013 16:05:00 DIS Emergency JUDITH HINES MD [facility] ER WEAKNESS [id number] 05/06/2013 09:21:00 05/06/2013 23:59:59 CLS Outpatient NEEMA HENSLEY [facility] CARD CAD,DYSPNEA [id number] 04/18/2013 14:55:00 04/18/2013 23:59:59 CLS Outpatient FELIBERTO VICTOR MD [facility] RAD LFT SI DSYFUNCTION [id number] 01/17/2018 00:49:00 Document Registration [id number] 11/30/2015 00:00:00 Document Registration [id number] 07/26/2012 15:08:00 Document Registration [id number] 12/30/2011 16:49:00 Document Registration [id number] 10/24/2011 21:30:00 Document Registration [id number] 10/17/2011 05:40:00 Document Registration [id number] 10/11/2011 12:19:00 Document Registration [id number] 08/30/2011 08:54:00 Document Registration [id number] 03/24/2011 12:50:00 Document Registration [id number] 01/14/2011 15:04:00 Document Registration [id number] 01/07/2011 10:59:00 Document Registration [id number] 11/20/2010 18:40:00 Document Registration [id number] 09/15/2010 07:20:00 Document Registration [id number] 04/03/2015 05:24:06 ACT Document Registration
[2018-01-17] MEDS ORDERED: NS W/KCL 20 MEQ/L 1,000 ML IV ONE ×2 (03:38→04:15)
[2018-01-17] MEDS: NS W/KCL 20 MEQ/L 1,000 ML IV SCH ×3 (03:40→20:06)
[2018-01-17] MEDS ORDERED: fentaNYL INJECTION 100 MCG/2 ML AMP ONE (03:48)
[2018-01-17] MEDS: fentaNYL INJECTION 100 MCG/2 ML AMP IVP PRN ×4 (03:50→18:24)
[2018-01-17 04:21] VITALS: BP 137/71
[2018-01-17] MEDS ORDERED: CATHETER FLUSH 10 ML SYR IV PRN (05:00)
[2018-01-17] MEDS: CATHETER FLUSH 10 ML SYR IV SCH ×3 (05:02→22:08)
[2018-01-17] MEDS: PIPERACILLIN SODIUM/TAZOBACTAM 4.5 GM in NS (IVPB) 100 ML IV SCH ×3 (06:43→22:14)
[2018-01-17 07:04] LABS: BASOPHILS % (AUTO) 0 % (0-10); EOSINOPHILS % (AUTO) 0 % (0-10); HEMATOCRIT 34 % (35-52); LYMPHOCYTES # (AUTO) 1.6 X 10^3 (1.0-4.0); LYMPHOCYTES % (AUTO) 9 % (12-44); MEAN CORPUSCULAR HEMOGLOBIN 29 PG (25-34); MEAN CORPUSCULAR HGB CONC 32 G/DL (32-36); MEAN CORPUSCULAR VOLUME 91 FL (80-99); MEAN PLATELET VOLUME 8.8 FL (7.4-10.4); MONOCYTES % (AUTO) 6 % (0-12); NEUTROPHILS # (AUTO) 15.4 X 10^3 (1.8-7.8); NEUTROPHILS % (AUTO) 85 % (42-75); PLATELET COUNT 268 10^3/uL (130-400); RED BLOOD COUNT 3.75 10^6/uL (4.35-5.85); RED CELL DISTRIBUTION WIDTH 13.8 % (10.0-14.5)
--- NOTE | 2018-01-17 07:13 | Diagnostic Imaging Report ---
PROCEDURE: CT abdomen and pelvis with and without contrast. TECHNIQUE: Precontrast acquisitions were acquired through the abdomen and pelvis. Multiple contiguous axial images were obtained through the abdomen and pelvis after the administration of intravenous contrast. INDICATION: Nausea and vomiting. Difficulty voiding. History of cholecystectomy, appendectomy, hysterectomy, bowel and bladder surgery. COMPARISON: 04/28/2017. FINDINGS: Lung bases are clear. There is hepatic steatosis with mild hepatomegaly. Gallbladder is absent. Bile ducts are not dilated. The head and uncinate process of pancreas are somewhat full compared with the body and tail of the pancreas. There is also mild hazy pancreatic edema in the mesenteric fat. Pancreatic duct is not dilated. Spleen appears normal. Adrenal glands are normal. The kidneys are normal. There is normal enhancement of the abdominal organs and vessels following IV contrast. Aorta is atherosclerotic without aneurysm. Stomach and small bowel are not distended. The colon shows normal stool and gas pattern. There is no evidence of diverticulitis. Uterus is absent. There are no pelvic masses. Bladder shows mild thickening of bladder wall in the rather uniform fashion more prominent anteriorly. There is no intra-abdominal adenopathy. No free fluid. IMPRESSION: 1. Fullness in the head and uncinate process of pancreas with some peripancreatic edema. These findings likely represent early pancreatitis. Underlying pancreatic mass cannot be excluded. This is a new finding since 04/28/2017. Followup is indicated. 2. Hepatomegaly with hepatic steatosis. 3. Mild diffuse thickening of the bladder wall likely postsurgical in nature. These findings are concordant with the preliminary report. Dictated by: Dictated on workstation # [id number]
[2018-01-17 07:34] LABS: BUN/CREATININE RATIO 18; CALCIUM 8.8 MG/DL (8.5-10.1); CARBON DIOXIDE 22 MMOL/L (21-32); CHLORIDE 107 MMOL/L (98-107); CREATININE SERUM 0.78 MG/DL (0.60-1.30); GFR ESTIMATED > 60; GLUCOSE 215 MG/DL (70-105); POTASSIUM 4.5 MMOL/L (3.6-5.0); SODIUM 136 MMOL/L (135-145)
[2018-01-17 08:00] VITALS: BP 179/84
[2018-01-17] MEDS ORDERED: MELA10CA2 PO (08:50)
[2018-01-17] MEDS ORDERED: INSU100I14 SQ (08:50)
[2018-01-17] MEDS ORDERED: DIPH25CA79 PO (08:50)
[2018-01-17] MEDS ORDERED: ACET-168 PO (08:50)
[2018-01-17] MEDS ORDERED: inSUlin (REGULAR) HUMAN 1 UNIT/0.01 ML (CHARGE PER UNIT) SC SCH (11:00)
--- NOTE | 2018-01-17 11:19 | History & Physical-Hospitalist ---
History of Present Illness HPI/Chief Complaint Pt is an 83yoCF with a PMH of recurrent UTIs, c diff, CAD, and IDDMII who presented to the ER with CC of abd pain, back pain,and vomiting. She states this was prescribed on 01/12. It was not filled until 01/15. She took two pills but developed nausea and vomiting with it. Her pain worsened and she was unable to keep anything down so presented to the ER. She reports she still does not feel well. She ate yogurt this morning and her abd pain worsened. She still has back pain and well and was reluctant to answer further questions due to this as the answers "are in my chart." Date Seen 01/17/18 Time Seen by Provider: 11:00 Attending Physician Richard Judd MD PCP Raul Loyola MD Referring Physician Date of Admission Jan 17, 2018 at 2:55 am Home Medications & Allergies Home Medications Reviewed patient Home Medication Reconciliation performed by pharmacy medication reconciliations advanced manufacturing technician and/or nursing. Patients Allergies have been reviewed. Allergies Allergies Coded Allergies metronidazole (Verified Allergy, Intermediate, hives, 03/17/17) Sulfa (Sulfonamide Antibiotics) (Verified Allergy, Unknown, 03/20/17) cephalexin (Verified Allergy, Unknown, 01/17/18) ciprofloxacin (Verified Allergy, Unknown, ITCHING, 03/17/17) codeine (Verified Allergy, Unknown, 01/17/18) metoprolol (Verified Allergy, Unknown, 01/17/18) nitrofurantoin (Verified Allergy, Unknown, 01/17/18) Past Izdlrxn-Ngpaze-Zojkec Hx Past Med/Social Hx: Reviewed Nursing Past Med/Soc Hx Patient Social History Employed/Student: retired Alcohol Use: Denies Use Recreational Drug Use: No Smoking Status: Never a Smoker Former Smoker, Quit: Sep 30, 1996 Type Used: Cigarettes 2nd Hand Smoke Exposure: No Physical Abuse Screen: No Sexual Abuse: No Recent Foreign Travel: No Contact w/other who traveled: No Recent Hopitalizations: No Recent Infectious Disease Expo: No Immunizations Up To Date Tetanus Booster (TDap): Unknown Pediatric: No Date of Pneumonia Vaccine: May 17, 2016 Date of Influenza Vaccine: Sep 29, 2017 Seasonal Allergies Seasonal Allergies: No Past Medical History Surgeries: Appendectomy, Bladder Surgery, Coronary Stent, Gallbladder, Hysterectomy, Vascular Surgery Currently Using CPAP: No Currently Using BIPAP: No Cardiac: Coronary Artery Disease, High Cholesterol, Hypertension, Peripheral Vascular Reproductive: Yes Sexually Transmitted Disease: No HIV/AIDS: No Female Reproductive Disorders: Denies Genitourinary: Bladder Infection, UTI-Chronic Gastrointestinal: Gastroesophageal Reflux, Chronic Constipation, Diverticulosis , Hemorrhoids, Pancreatitis, Polyps Musculoskeletal: Arthritis, Chronic Back Pain Endocrine: Diabetes, Insulin dep Loss of Vision: Bilateral Hearing Impairment: Denies Psychosocial: Depression Skin/Integumentary: Psoriasis 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) Adverse Reaction to Blood Boyle: No (HAS HAD BLOOD TRANSFUSION WITH NO DIFFICULTY) Family History Cancer of mouth Diabetes mellitus 19 FATHER Dysphasia G8 SISTER FH: thyroid cancer Myocardial infarction 19 FATHER Cancer Review of Systems Constitutional: No chills, No fever EENTM: No blurred vision, No double vision, No nose congestion, No throat pain Respiratory: No cough, No dyspnea on exertion, No short of breath Cardiovascular: No chest pain, No edema, No palpitations Gastrointestinal: see HPI, abdominal pain, No constipation, No diarrhea, No hematemesis, No melena, nausea, vomiting Genitourinary: No dysuria, No frequency Musculoskeletal: back pain (chronic), No joint pain, No muscle pain Skin: No lesions, No rash Psychiatric/Neurological: Denies Headache, Denies Numbness, Denies Tingling Physical Exam Physical Exam Vital Signs Vital Signs - First Documented 01/17/18 01/17/18 01/17/18 00:15 03:26 04:08 Temp 98.2 Pulse 78 Resp 18 B/P (MAP) 132/59 (83) Pulse Ox 92 O2 Delivery Room Air O2 Flow Rate 2.00 Capillary Refill : Less Than 3 Seconds General Appearance: No Apparent Distress, WD/WN, Chronically ill HEENT: PERRL/EOMI, Moist Mucous Membranes Neck: Non Tender, Supple Respiratory: Lungs Clear, No Respiratory Distress Cardiovascular: Regular Rate, Rhythm, No Murmur Gastrointestinal: Normal Bowel Sounds, Soft, Tenderness (diffuse mild tenderness, somewhat worse in epigastrium but no tenderness to palpation from stethoscope during auscultation) Extremity: Normal Capillary Refill, No Calf Tenderness, No Pedal Edema Neurologic/Psychiatric: Alert, Oriented x3, No Motor/Sensory Deficits, Normal Mood/Affect Skin: Normal Color, Warm/Dry Results Results/Procedures Labs Laboratory Tests 01/19/18 08:48 Patient resulted labs reviewed. Imaging: Reviewed Imaging Films, Reviewed Imaging Report Imaging Date of Exam: 01/17/18 CT ABDOMEN/PELVIS W WO PROCEDURE: CT abdomen and pelvis with and without contrast. TECHNIQUE: Precontrast acquisitions were acquired through the abdomen and pelvis. Multiple contiguous axial images were obtained through the abdomen and pelvis after the administration of intravenous contrast. INDICATION: Nausea and vomiting. Difficulty voiding. History of cholecystectomy, appendectomy, hysterectomy, bowel and bladder surgery. COMPARISON: 04/28/2017. FINDINGS: Lung bases are clear. There is hepatic steatosis with mild hepatomegaly. Gallbladder is absent. Bile ducts are not dilated. The head and uncinate process of pancreas are somewhat full compared with the body and tail of the pancreas. There is also mild hazy pancreatic edema in the mesenteric fat. Pancreatic duct is not dilated. Spleen appears normal. Adrenal glands are normal. The kidneys are normal. There is normal enhancement of the abdominal organs and vessels following IV contrast. Aorta is atherosclerotic without aneurysm. Stomach and small bowel are not distended. The colon shows normal stool and gas pattern. There is no evidence of diverticulitis. Uterus is absent. There are no pelvic masses. Bladder shows mild thickening of bladder wall in the rather uniform fashion more prominent anteriorly. There is no intra-abdominal adenopathy. No free fluid. IMPRESSION: 1. Fullness in the head and uncinate process of pancreas with some peripancreatic edema. These findings likely represent early pancreatitis. Underlying pancreatic mass cannot be excluded. This is a new finding since 04/28/2017. Followup is indicated. 2. Hepatomegaly with hepatic steatosis. 3. Mild diffuse thickening of the bladder wall likely postsurgical in nature. Assessment/Plan Admission Diagnosis Sepsis from pyelonephritis Admission Status: Inpatient Order (span 2 midnights) Reason for Inpatient Admission: failed outpatient antibiotics Diagnosis/Problems Diagnosis/Problems (1) Sepsis Status: Resolved Assessment & Plan: UA consistent with UTI Tachycardia and leukocytosis noted Will start on Zosyn given allergies as he is unable to clarify reactions No hypotension or lactic acidosis so no 30cc/kg bolus needed Await cultures that were drawn in ER Qualifiers: Sepsis type: sepsis due to unspecified organism Qualified Codes: A41.9 - Sepsis, unspecified organism (2) Pyelonephritis Status: Acute Assessment & Plan: Abx as above (3) Pancreatitis Status: Resolved Assessment & Plan: very mild or finding may be reactive from vomiting Will keep NPO except sips for bowel rest and continue IVF Qualifiers: Chronicity: acute Pancreatitis type: unspecified pancreatitis type Acute pancreatitis complication: no infection or necrosis Qualified Codes: K85.90 - Acute pancreatitis without necrosis or infection, unspecified (4) Insulin dependent diabetes mellitus Status: Chronic Assessment & Plan: Will start SSI Takes prandial insulin at home but will hold while she is taking poor PO intake Clinical Quality Measures DVT/VTE Risk/Contraindication: Risk Factor Score Per Nursin RFS Level Per Nursing on Admit: 3=High COLIN PENALOZA MD Jan 17, 2018 11:19
[2018-01-17 12:00] VITALS: BP 162/73
[2018-01-17] MEDS: ACETAMINOPHEN 500 MG TAB (TYLENOL) PO PRN (12:47)
--- NOTE | 2018-01-17 15:00 | Occupational Therapy Eval ---
OT Evaluation-General/PLF Medical Diagnosis Admission Date Jan 17, 2018 at 02:55 Medical Diagnosis: sepsis, pyelonephritis, pancreatitis Onset Date: Jan 16, 2018 Therapy Diagnosis Therapy Diagnosis: decr self care, weakness, decr funct mobility Height/Weight Height (Feet): 5 Height (Inches): 4.00 Weight (Pounds): 149 Weight (Ounces): 0.0 Precautions Precautions/Isolations: Fall Prevention, Standard Precautions Safety Interventions: None Referral Physician: Kelsi Referral Reason: Evaluation/Treatment Medical History Pertinent Medical History: Arthritis, CAD, DM, Diverticulitis, GERD, HTN, PVD Additional Medical History Back surgery. Coronary stent. Pneumonia. Bypass in legs. Bladder tumor removal 2017. Chronic UTI. Chronic constipation. Chronic back pain. Goiter Current History Admitted with abdominal pain, vomiting. Sepsis from UTI. Reviewed History: Yes Social History Current Living Status: Spouse ADL-Prior Level of Function ADL PLOF Comments Pt reported that she was previously able to manage all of her basic ADLs as well as tasks around the house. 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 OT Current Status Subjective Pt seen in room, up in bed, agreeable to OT. Described pain in lower abdomen but said that it was intermittent and pain meds helped. Appearance Alert, cooperative. very warm to touch. Mental Status/Objective Attachments: Central Line, IV, Oxygen Current Hand Dominance: Right Upper Extremity ROM Grossly WFL bilat Upper Extremity Strength Grossly 4/5 bilat ADL-Treatment ADL-Current Pt said that she has been able to drink water but not eat anything. She needed miin assist to get up to EOB, CGA to stand and pivot transfer to [facility] [facility] beside bed. She was a little wobbly at times. She was able to get her pants up and down , CGA for standing, but needed a little help to get clean briefs on over feet. She managed hygiene with SBA. She transferred back to EOB with CGA and was able to get her feet into bed without help. O2 in place, SCDs left off per pt request , 4 rails up, all needs met. Functional [place] Measure 0=Not Assessed/NA 4=Minimal Assistance 1=Total Assistance 5=Supervision or Setup 2=Maximal Assistance 6=Modified [place] 3=Moderate Assistance 7=Complete IndependenceIRFPAI Quality Coding Scale 6 Independent with activity with or without an assistive device 5 Patient requires set up or clean up by helper. Patient completes activity by themselves 4 Supervision or touching assist (CGA). Sandy provide cues , steadying assist 3 The helper provides less than half the effort to complete the activity 2 The helper provides more than half the effort to complete the activity 1 Dependent. The helper does all the effort to complete an activity 7 Patient refused to complete or attempt activity 9 The patient did not perform the activity before the current illness or injury 88 Not attempted due to Medical conditions or safety concerns Toileting (FIM): 4 Transfers (B, C, W/C) (FIM): 4 Toilet/Commode Transfer (FIM): 4 Education OT Patient Education: Modified ADL techniques, Purpose of tx/functional activities, Rehab process, Transfer techniques Teaching Recipient: Patient Teaching Methods: Demonstration Response to Teaching: Return Demonstration OT Dolly Pusher Goals Dolly Pusher Goals Time Frame: Jan 24, 2018 Grooming(FIM): 5 Bathing(FIM): 5 Upper Body Dressing(FIM): 5 Lower Body Dressing(FIM): 5 Toileting(FIM): 6 Toilet/Commode Transfer(FIM): 6 Shower Transfer(FIM): 5 Additional Goals: 1-Demonstrate ADL Tasks, 2-Verbalize Understanding, 3- ImproveStrength/Rosanna 1=Demonstrate adherence to instructed precautions during ADL tasks. 2=Patient will verbalize/demonstrate understanding of assistive devices/ modifications for ADL. 3=Patient will improve strength/tolerance for activity to enable patient to perform ADL's. OT Education/Plan Problem List/Assessment Assessment: Decreased Activ Tolerance, Decreased UE Strength, Dependent Transfers, Impaired Funct Balance, Impaired Self-Care Skills Pt would benefit from skilled OT to increase her independence in basic self care to allow her to safely return home and to decrease caregiver burden Discharge Recommendations Plan/Recommendations: Continue POC Treatment Plan/Plan of Care Treatment,Training & Education: Yes Patient would benefit from OT for education, treatment and training to promote independence in ADL's, mobility, safety and/or upper extremity function for ADL' s. Plan of Care: ADL Retraining, Functional Mobility, UE Funct Exercise/Act Treatment Duration: Jan 24, 2018 Frequency: 5 times per week Estimated Hrs Per Day: .25 hour per day (.25 to .5) Agreement: Yes Rehab Potential: Good Time/GCodes Start Time: 14:10 Stop Time: 14:25 Total Time Billed (hr/min): 15 Billed Treatment Time visit, 15 minutes evaluation moderate intensity MARLEY BURGER OT Jan 17, 2018 15:00
--- NOTE | 2018-01-17 15:19 | Physical Therapy Evaluation ---
PT Evaluation-General Medical Diagnosis Admission Date Jan 17, 2018 at 02:55 Medical Diagnosis: sepsis, pyelonephritis, pancreatitis Onset Date: Jan 16, 2018 Therapy Diagnosis Therapy Diagnosis: impaired mobility, strength, endurance Height/Weight Height (Feet): 5 Height (Inches): 4.00 Weight (Pounds): 149 Weight (Ounces): 0.0 Precautions Precautions/Isolations: Fall Prevention, Standard Precautions Weight Bear Status Right Lower Extremity: Right Weight Bearing/Tolerated Left Lower Extremity: Left Weight Bearing/Tolerated Referral Physician: Marii Dolan MD Reason for Referral: Evaluation/Treatment Medical History Pertinent Medical History: Arthritis, CAD, DM, Diverticulitis, GERD, HTN, PVD Additional Medical History high cholesterol, bladder infection, UTI-chronic, chronic constipation, hemorrhoids, pancreatitis, polyps, chronic back pain, depression, psoriasis, surg (appendectomy, bladder, coronary stent, gallbladder, hysterectomy, vascular ) Current History patient went to ER with abdominal pain, back pain, vomiting -> pyelonephritis and pancreatitis Reviewed History: Yes Social History Home: Single Level Current Living Status: Spouse Entry Into Home: Stairs Without Railing PT Steps Into Home: 1 Prior/Core FIM Prior Level of Function Functional [place] Measure 0=Not Assessed/NA 4=Minimal Assistance 1=Total Assistance 5=Supervision or Setup 2=Maximal Assistance 6=Modified [place] 3=Moderate Assistance 7=Complete [place] Bed Mobility: 7 Transfers (B,C,W/C) (FIM): 7 Gait: 7 PT Evaluation-Current Subjective Patient in bed pre tx, agrees to PT, has pain of 7/10 in her back and abdomen. She states she has had pain meds and her pain is much better than it was. Pt/Family Goals "to get stronger, I am weak" Objective Patient Orientation: Person, Place, Situation Attachments: Oxygen, IV 2L of O2 nasal canula ROM/Strength ROM Lower Extremities WNL Strength Lower Extremities 4/5 gross bilateral lower extremities Neuromuscular (Tone, Coordination, Reflexes) NT Sensory Vision: Wears Glasses Hearing: Functional Hand Dominance: Right Sensation Right Lower Extremit: Intact Sensation Left Lower Extremity: Intact Transfers Functional [place] Measure 0=Not Assessed/NA 4=Minimal Assistance 1=Total Assistance 5=Supervision or Setup 2=Maximal Assistance 6=Modified [place] 3=Moderate Assistance 7=Complete [place] Transfers (B, C, W/C) (FIM): 3 Scootin Rollin Supine to/from Sit: 3 Sit to/from Stand: 4 bed t/f WC(FIM only if WC use): 4 CGA for sit to stand and transfers. Supine to sit SBA but mod assist for sit to supine because patient needs assist with both legs. Gait Mode of Locomotion: Walk Anticipated Mode of Locomotion: Walk Gait (FIM): 1 Distance: 40' Gait Level of Assist: 4 Gait Persons Needed: 1 Gait Assistive Device: FWW Comments/Gait Description Patient was unsteady initially but it resolved quickly, slow ambulation Balance Sitting Static: Normal Sitting Dynamic: Fair Standing Static: Fair Standing Dynamic: Fair Treatment supine exercises x15 (AP, HS) Assessment/Needs Patient has impaired mobility, strength, endurance. She needs assist getting legs back into bed. Rehab Potential: Fair PT Short Term Goals Short Term Goals Time Frame: Jan 24, 2018 Transfers (B,C,W/C) (FIM): 5 Gait (FIM): 5 Gait Distance Comment: 150' Gait Level of Assist: 5 Gait Assistive Device: FWW PT Plan Problem List Problem List: Activity Tolerance, Functional Strength, Safety, Balance, Gait, Transfer, Bed Mobility Treatment/Plan Treatment Plan: Continue Plan of Care Treatment Plan: Bed Mobility, Education, Functional Activity Rosanna, Functional Strength, Gait, Safety, Therapeutic Exercise, Transfers Treatment Duration: Jan 24, 2018 Frequency: 6 times per week Estimated Hrs Per Day: .25 hour per day (15-30') Patient and/or Family Agrees t: Yes Safety Risks/Education Patient Education: Gait Training, Transfer Techniques, Correct Positioning, Safety Issues Teaching Recipient: Patient Teaching Methods: Demonstration, Discussion Response to Teaching: Reinforcement Needed Discharge Recommendations Plan Patient will perform bed mobility and transfer training, balance and endurance training, functional strengthening, stair training, gait training, and education , to improve functional mobility and independence at home. Therapy D/C Recommendations: Home w/ Family Support Time/GCodes Time In: 1455 Time Out: 1515 Total Billed Treatment Time: 20 Total Billed Treatment 1 visit MAXIME 20' KATIE HARRIS PT Jan 17, 2018 15:19
[2018-01-17 16:00] VITALS: BP 161/70
[2018-01-17] MEDS: inSUlin ASPART (NovoLOG) 1 UNIT/0.01 ML (CHARGE PER UNIT) SC SCH ×2 (16:22→20:52)
[2018-01-17] MEDS: LACTOBACILLUS Acidoph/Bulgar (LACTINEX/FLORANEX) TAB PO SCH (17:02)
[2018-01-17 19:30] VITALS: BP 189/77
[2018-01-17] MEDS: ONDANSETRON 4 MG/2 ML (SDV) Z0FRAN IV PRN (20:08)
[2018-01-17 21:00] VITALS: BP 180/79
[2018-01-17] MEDS ORDERED: amLODIPine 5 MG (NORVASC) TAB PO ONE (21:15)
[2018-01-18 00:23] VITALS: BP 178/77
[2018-01-18] MEDS: fentaNYL INJECTION 100 MCG/2 ML AMP IVP PRN ×5 (03:31→22:19)
[2018-01-18] MEDS: ONDANSETRON 4 MG/2 ML (SDV) Z0FRAN IV PRN ×3 (03:33→16:20)
[2018-01-18 04:04] VITALS: BP 145/64
[2018-01-18] MEDS: CATHETER FLUSH 10 ML SYR IV SCH ×3 (05:13→21:14)
[2018-01-18] MEDS: inSUlin ASPART (NovoLOG) 1 UNIT/0.01 ML (CHARGE PER UNIT) SC SCH ×4 (05:14→21:14)
[2018-01-18] MEDS: LACTOBACILLUS Acidoph/Bulgar (LACTINEX/FLORANEX) TAB PO SCH ×3 (05:14→16:20)
[2018-01-18] MEDS: NS W/KCL 20 MEQ/L 1,000 ML IV SCH ×2 (05:57→16:23)
[2018-01-18] MEDS: PIPERACILLIN SODIUM/TAZOBACTAM 4.5 GM in NS (IVPB) 100 ML IV SCH ×3 (05:58→22:17)
[2018-01-18 08:00] VITALS: BP 132/58
--- NOTE | 2018-01-18 10:32 | Physical Therapy Daily Note ---
PT Daily Note-Current Subjective Agreeable to PT. Reports she is NPO as eating makes her sick. Reports feeling tired today. No pain reported. Pain Location: No Pain Reported Mental Status Patient Orientation: Person, Place, Time, Situation Attachments: Oxygen, IV Transfers Functional [place] Measure 0=Not Assessed/NA 4=Minimal Assistance 1=Total Assistance 5=Supervision or Setup 2=Maximal Assistance 6=Modified [place] 3=Moderate Assistance 7=Complete IndependenceIRFPAI Quality Coding Scale 6 Independent with activity with or without an assistive device 5 Patient requires set up or clean up by helper. Patient completes activity by themselves 4 Supervision or touching assist (CGA). [place] provide cues , steadying assist 3 The helper provides less than half the effort to complete the activity 2 The helper provides more than half the effort to complete the activity 1 Dependent. The helper does all the effort to complete an activity 7 Patient refused to complete or attempt activity 9 The patient did not perform the activity before the current illness or injury 88 Not attempted due to Medical conditions or safety concerns Transfers (B, C, W/C) (FIM): 4 Supine to/from Sit: 4 Sit to/from Stand: 4 toilet transfer with CGA; CGA for all transfers for safety. Pt did toilet and was indep with liliya care; stood at sink with SBA. Weight Bearing Right Lower Extremity: Right Weight Bearing/Tolerated Left Lower Extremity: Left Weight Bearing/Tolerated Gait Training Gait (FIM): 2 Distance (FIM): 5=647-41 ft Distance: 125 ft Gait Level of Assist: 4 (CGA for safety and skilled cues for posture and use of walker) Gait Assistive Device: FWW Treatments Bed mobility, gait and toileting. Pt in bed post treatment with needs met. Assessment Current Status: Good Progress Tired. limited functional actiity tolerance but seems to be improved from yesterday. PT Short Term Goals Short Term Goals Time Frame: Jan 24, 2018 Transfers (B,C,W/C) (FIM): 5 Gait (FIM): 5 Gait Distance Comment: 150' Gait Level of Assist: 5 Gait Assistive Device: FWW PT Plan Problem List Problem List: Activity Tolerance, Functional Strength, Safety, Gait, Transfer, Bed Mobility Treatment/Plan Treatment Plan: Continue Plan of Care Treatment Plan: Bed Mobility, Education, Functional Activity Rosanna, Functional Strength, Gait, Safety, Therapeutic Exercise, Transfers Treatment Duration: Jan 24, 2018 Frequency: 6 times per week Estimated Hrs Per Day: .25 hour per day (15-30') Patient and/or Family Agrees t: Yes Safety Risks/Education Patient Education: Safety Issues Teaching Recipient: Patient Teaching Methods: Discussion Response to Teaching: Reinforcement Needed Time/GCodes Time In: 930 Time Out: 1000 Total Billed Treatment Time: 30 Total Billed Treatment visit FA 30 BAL WILSON PT Jan 18, 2018 10:32
[2018-01-18 15:45] VITALS: BP 143/66
--- NOTE | 2018-01-18 16:05 | Progress Note-Hospitalist ---
Subjective HPI/CC On Admission Date Seen by Provider: Jan 18, 2018 Time Seen by Provider: 11:40 Pt is an 83yoCF with a PMH of recurrent UTIs, c diff, CAD, and IDDMII who presented to the ER with CC of abd pain, back pain,and vomiting. She states this was prescribed on 01/12. It was not filled until 01/15. She took two pills but developed nausea and vomiting with it. Her pain worsened and she was unable to keep anything down so presented to the ER. She reports she still does not feel well. She ate yogurt this morning and her abd pain worsened. She still has back pain and well and was reluctant to answer further questions due to this as the answers "are in my chart. Subjective/Events-last exam Pt reports she had some abd pain but would like to eat. Otherwise no complaints. Focused Exam Evaluation Lactate Level Laboratory Tests 01/17/18 01:50: Lactic Acid Level 1.39 Objective Exam Vital Signs Vital Signs Date Time Temp Pulse Resp B/P (MAP) Pulse Ox O2 Delivery O2 Flow Rate FiO2 01/17/18 00:15 98.2 78 18 132/59 (83) 92 01/17/18 03:26 2.00 01/17/18 04:08 Room Air Capillary Refill : Less Than 3 Seconds General Appearance: No Apparent Distress, WD/WN Respiratory: Lungs Clear, No Accessory Muscle Use, No Respiratory Distress Cardiovascular: Regular Rate, Rhythm, No Murmur Gastrointestinal: Normal Bowel Sounds, Non Tender, Soft, No Guarding Extremity: No Calf Tenderness, No Pedal Edema Neurologic/Psychiatric: Alert, Oriented x3 Results/Procedures Lab Patient resulted labs reviewed. Imaging: Reviewed Imaging Films, Reviewed Imaging Report Assessment/Plan Assessment and Plan Assess & Plan/Chief Complaint Pyelonephritis Diagnosis/Problems Diagnosis/Problems (1) Sepsis Status: Acute Assessment & Plan: UA consistent with UTI WBC trending down, afebrile Continue Zosyn today- will transition to oral Augmentin tomorrow per sensitivities Blood cultures NGTD Qualifiers: Sepsis type: sepsis due to unspecified organism Qualified Codes: A41.9 - Sepsis, unspecified organism (2) Pyelonephritis Status: Acute Assessment & Plan: Abx as above (3) Pancreatitis Status: Acute Assessment & Plan: very mild or finding may be reactive from vomiting ADAT- tolerated lunch well Qualifiers: Chronicity: acute Pancreatitis type: unspecified pancreatitis type Acute pancreatitis complication: no infection or necrosis Qualified Codes: K85.90 - Acute pancreatitis without necrosis or infection, unspecified (4) Insulin dependent diabetes mellitus Assessment & Plan: Cont SSI Resume Home Novolog with meals (5) Prophylactic measure Assessment & Plan: ADAT NS +20KCL at 100ml/hr Clinical Quality Measures DVT/VTE Risk/Contraindication: Risk Factor Score Per Nursin RFS Level Per Nursing on Admit: 3=High COLIN PENALOZA MD Jan 18, 2018 4:05 pm
--- NOTE | 2018-01-18 16:19 | Occupational Ther Daily Note ---
OT Current Status-Daily Note Subjective Pt seen in room, up in bed, agreeable to OT. No pain mentioned. Mental Status/Objective Functional [place] Measure 0=Not Assessed/NA 4=Minimal Assistance 1=Total Assistance 5=Supervision or Setup 2=Maximal Assistance 6=Modified [place] 3=Moderate Assistance 7=Complete [place] Other Treatment Pt education on three different UE exercises that she can do on her own to strengthen arms to help with transfers and to increase activity tolerance. Exercises focused on shoulders and elbows, as needed to help with getting up and down. She was able to follow verbal and visual instructions and do 10 reps of each exercise. She also recalled two that she was encouraged to do on her own. Pt left up in bed, all needs met. O2 in place Education OT Patient Education: Exercise program, Purpose of tx/functional activities Teaching Recipient: Patient Teaching Methods: Demonstration, Discussion Response to Teaching: Return Demonstration, Reinforcement Needed OT Short Term Goals Short Term Goals Transfers (B,C,W/C) (FIM): 5 1=Demonstrate adherence to instructed precautions during ADL tasks. 2=Patient will verbalize/demonstrate understanding of assistive devices/ modifications for ADL. 3=Patient will improve strength/tolerance for activity to enable patient to perform ADL's. OT Associate Accountant Goals Associate Accountant Goals Time Frame: Jan 24, 2018 Grooming(FIM): 5 Bathing(FIM): 5 Upper Body Dressing(FIM): 5 Lower Body Dressing(FIM): 5 Toileting(FIM): 6 Toilet/Commode Transfer(FIM): 6 Shower Transfer(FIM): 5 Additional Goals: 1-Demonstrate ADL Tasks, 2-Verbalize Understanding, 3- ImproveStrength/Rosanna 1=Demonstrate adherence to instructed precautions during ADL tasks. 2=Patient will verbalize/demonstrate understanding of assistive devices/ modifications for ADL. 3=Patient will improve strength/tolerance for activity to enable patient to perform ADL's. OT Education/Plan Problem List/Assessment Pt would benefit from skilled OT to increase her independence in basic self care to allow her to safely return home and to decrease caregiver burden Discharge Recommendations Plan/Recommendations: Continue POC Treatment Plan/Plan of Care Patient would benefit from OT for education, treatment and training to promote independence in ADL's, mobility, safety and/or upper extremity function for ADL' s. Plan of Care: ADL Retraining, Functional Mobility, UE Funct Exercise/Act Treatment Duration: Jan 24, 2018 Frequency: 5 times per week Estimated Hrs Per Day: .25 hour per day (.25 to .5) Agreement: Yes Rehab Potential: Fair Time/GCodes Start Time: 15:25 Stop Time: 15:35 Total Time Billed (hr/min): 10 Billed Treatment Time visit, 10 minutes exercise MARLEY BURGER OT Jan 18, 2018 16:19
[2018-01-18] MEDS: ACETAMINOPHEN 500 MG TAB (TYLENOL) PO PRN (16:20)
[2018-01-18] MEDS: ENOXAPARIN 40 MG/0.4 ML (LOVENOX) SYR SC SCH (16:26)
[2018-01-18] MEDS ORDERED: MELATONIN 3 MG TABLET PO SCH (21:00)
[2018-01-18] MEDS: inSUlin ASPART (NovoLOG) 1 UNIT/0.01 ML (CHARGE PER UNIT) SQ SCH (21:14)
[2018-01-19] VITALS: BP 137/73
[2018-01-19] MEDS: fentaNYL INJECTION 100 MCG/2 ML AMP IVP PRN ×2 (02:56→09:38)
[2018-01-19] MEDS: NS W/KCL 20 MEQ/L 1,000 ML IV SCH ×2 (02:58→09:36)
[2018-01-19] MEDS: ACETAMINOPHEN 500 MG TAB (TYLENOL) PO PRN ×2 (03:40→17:25)
[2018-01-19] MEDS: LACTOBACILLUS Acidoph/Bulgar (LACTINEX/FLORANEX) TAB PO SCH ×3 (06:45→17:25)
[2018-01-19] MEDS: inSUlin ASPART (NovoLOG) 1 UNIT/0.01 ML (CHARGE PER UNIT) SC SCH ×3 (06:45→17:26)
[2018-01-19] MEDS: PIPERACILLIN SODIUM/TAZOBACTAM 4.5 GM in NS (IVPB) 100 ML IV SCH (06:45)
[2018-01-19] MEDS: CATHETER FLUSH 10 ML SYR IV SCH (06:45)
[2018-01-19 08:00] VITALS: BP 148/70
[2018-01-19] MEDS ORDERED: PANTOPRAZOLE 40 MG (PROTONIX) TAB PO SCH (09:00)
[2018-01-19 09:11] LABS: BASOPHILS % (AUTO) 0 % (0-10); EOSINOPHILS # (AUTO) 0.1 10^3/uL (0.0-0.3); EOSINOPHILS % (AUTO) 1 % (0-10); HEMATOCRIT 30 % (35-52); HEMOGLOBIN 9.4 G/DL (11.5-16.0); LYMPHOCYTES # (AUTO) 1.2 X 10^3 (1.0-4.0); LYMPHOCYTES % (AUTO) 11 % (12-44); MEAN CORPUSCULAR HEMOGLOBIN 29 PG (25-34); MEAN CORPUSCULAR HGB CONC 32 G/DL (32-36); MEAN CORPUSCULAR VOLUME 91 FL (80-99); MEAN PLATELET VOLUME 9.2 FL (7.4-10.4); MONOCYTES # (AUTO) 0.5 X 10^3 (0.0-1.0); MONOCYTES % (AUTO) 5 % (0-12); NEUTROPHILS # (AUTO) 8.7 X 10^3 (1.8-7.8); NEUTROPHILS % (AUTO) 83 % (42-75); PLATELET COUNT 215 10^3/uL (130-400); RED BLOOD COUNT 3.25 10^6/uL (4.35-5.85); RED CELL DISTRIBUTION WIDTH 14.4 % (10.0-14.5); WHITE BLOOD COUNT 10.5 10^3/uL (4.3-11.0)
[2018-01-19] MEDS: inSUlin ASPART (NovoLOG) 1 UNIT/0.01 ML (CHARGE PER UNIT) SQ SCH (09:18)
[2018-01-19 09:20] LABS: CREATININE SERUM 0.92 MG/DL (0.60-1.30)
--- NOTE | 2018-01-19 10:24 | Physical Therapy Daily Note ---
PT Daily Note-Current Subjective Agrees to PT. Likely going home today. Mental Status Patient Orientation: Person, Place, Time, Situation Transfers Functional [place] Measure 0=Not Assessed/NA 4=Minimal Assistance 1=Total Assistance 5=Supervision or Setup 2=Maximal Assistance 6=Modified [place] 3=Moderate Assistance 7=Complete IndependenceIRFPAI Quality Coding Scale 6 Independent with activity with or without an assistive device 5 Patient requires set up or clean up by helper. Patient completes activity by themselves 4 Supervision or touching assist (CGA). [place] provide cues , steadying assist 3 The helper provides less than half the effort to complete the activity 2 The helper provides more than half the effort to complete the activity 1 Dependent. The helper does all the effort to complete an activity 7 Patient refused to complete or attempt activity 9 The patient did not perform the activity before the current illness or injury 88 Not attempted due to Medical conditions or safety concerns Transfers (B, C, W/C) (FIM): 6 Supine to/from Sit: 6 Sit to/from Stand: 6 slow with transfers butr able to complete without assist. Weight Bearing Right Lower Extremity: Right Weight Bearing/Tolerated Left Lower Extremity: Left Weight Bearing/Tolerated Gait Training Gait (FIM): 5 Distance (FIM): 3=150 ft Gait Level of Assist: 5 Gait Assistive Device: FWW slow gait and forward flexed at hips but no noted LOB. Assessment Current Status: Good Progress slow with mobiltiy but more steady today compared to yesterday. Progressing. PT Short Term Goals Short Term Goals Time Frame: Jan 24, 2018 Transfers (B,C,W/C) (FIM): 5 Gait (FIM): 5 Gait Distance Comment: 150' Gait Level of Assist: 5 Gait Assistive Device: FWW PT Plan Problem List Problem List: Activity Tolerance, Functional Strength Treatment/Plan Treatment Plan: Continue Plan of Care (vs dc today) Treatment Plan: Bed Mobility, Education, Functional Activity Rosanna, Functional Strength, Gait, Safety, Therapeutic Exercise, Transfers Treatment Duration: Jan 24, 2018 Frequency: 6 times per week Estimated Hrs Per Day: .25 hour per day (15-30') Patient and/or Family Agrees t: Yes Safety Risks/Education Patient Education: Safety Issues Teaching Recipient: Patient Teaching Methods: Discussion Response to Teaching: Verbalize Understanding Discharge Recommendations Therapy D/C Recommendations: Physical Therapy Home Care Time/GCodes Time In: 1010 Time Out: 1025 Total Billed Treatment Time: 15 Total Billed Treatment visit GT 15 BAL WILSON PT Jan 19, 2018 10:24
--- NOTE | 2018-01-19 10:44 | D/C HH Face to Face Order ---
D/C Face to Face Orders Instructions for Patient Patient Instructions/FollowUp: Please continue to take your medications as written. It is important to finsh your antibiotic even if you begin to feel better. Please follow up with your PCP Dr Loyola next week and with Dr Cotton as scheduled. Physician to follow Patient: Dr Loyola Discharge Diet for Home: ADA Diet Patient Data-Allergies,Ht & Wt Patient Allergies: Coded Allergies: metronidazole (Verified Allergy, Intermediate, hives, 03/17/17) Sulfa (Sulfonamide Antibiotics) (Verified Allergy, Unknown, 03/20/17) cephalexin (Verified Allergy, Unknown, 01/17/18) ciprofloxacin (Verified Allergy, Unknown, ITCHING, 03/17/17) codeine (Verified Allergy, Unknown, 01/17/18) metoprolol (Verified Allergy, Unknown, 01/17/18) nitrofurantoin (Verified Allergy, Unknown, 01/17/18) Height (Feet): 5 Height (Inches): 4.00 Weight (Pounds): 149 Weight (Ounces): 0.0 Home Health Need/Face to Face Date of Face to Face: Jan 19, 2018 Clinical Findings: Generalized weakness and fatigue I have seen Pt [id number]: Yes Discharged To: Home Diagnosis/Conditions: Pyelonephritis, pancreatiis Problems/Diagnosis/Condition: Patient is Homebound due to: Muscle weakness Homebound Status Due to the above stated illness, injury or surgical procedure (medical condition or diagnosis) and associated clinical findings, the patient is homebound because of his/her inability to leave home except with aid of a supportive device and/or person AND leaving the home requires a considerable and taxing effort or is medically contraindicated. Pt req the following assistanc: Aid of another person, Walker Home Health Nursing Orders Home Health Services Order: Nursing Services, Physical Therapy-Evaluate & Treat Home Health Infusion Therapy Line Start Date: Jan 17, 2018 Line Start Time: 0020 Line Type: Peripheral IV Site Location: Forearm Therapy Orders Therapy Orders: Physical Therapy, PT to assess for OT Therapy Specific Orders: Eval assistive deivces, Teach enviro modifications/ safety, Increase strength/endurance Certify Stmt I certify that this patient is under my care and that I, a nurse practitioner or a physician; a accounts receivable assistant working with me, had a face to face encounter that - meets the physician face to face encounter requirements with this patient as dated. COLIN PENALOZA MD Jan 19, 2018 10:44 am
[2018-01-19] MEDS ORDERED: AMOX-358 PO (10:47)
--- NOTE | 2018-01-19 11:57 | Occ Therapy Progress Note ---
Therapy Progress Note Attempted therapy at 1139. Pt resting in bed, states she is going home today. Pt politely declined therapy at this time, states "I think I just want to rest until I go home." Pt has no questions or concerns regarding ADLs or home safety. Pt resting in bed with needs met. 1, visit TA RUIZ OT Jan 19, 2018 11:57
--- NOTE | 2018-01-19 12:36 | Progress Note-Hospitalist ---
Subjective HPI/CC On Admission Date Seen by Provider: Jan 19, 2018 Time Seen by Provider: 09:15 Pt is an 83yoCF with a PMH of recurrent UTIs, c diff, CAD, and IDDMII who presented to the ER with CC of abd pain, back pain,and vomiting. She states this was prescribed on 01/12. It was not filled until 01/15. She took two pills but developed nausea and vomiting with it. Her pain worsened and she was unable to keep anything down so presented to the ER. She reports she still does not feel well. She ate yogurt this morning and her abd pain worsened. She still has back pain and well and was reluctant to answer further questions due to this as the answers "are in my chart. Subjective/Events-last exam Pt reports doing well. Ate dinner without issue. Had some abd pain this morning but doing well now. Discussed plan for discharge with patient who requested another day of admission as she needed her pain treated earlier today. Focused Exam Evaluation Lactate Level Laboratory Tests 01/17/18 01:50: Lactic Acid Level 1.39 Objective Exam Vital Signs Vital Signs Date Time Temp Pulse Resp B/P (MAP) Pulse Ox O2 Delivery O2 Flow Rate FiO2 01/17/18 00:15 98.2 78 18 132/59 (83) 92 01/17/18 03:26 2.00 01/17/18 04:08 Room Air Capillary Refill : Less Than 3 Seconds General Appearance: No Apparent Distress, WD/WN Respiratory: Lungs Clear, No Accessory Muscle Use, No Respiratory Distress Cardiovascular: Regular Rate, Rhythm, No Murmur Gastrointestinal: Normal Bowel Sounds, Non Tender, Soft Extremity: Non Tender, No Calf Tenderness, No Pedal Edema Neurologic/Psychiatric: Alert, Oriented x3, Other Results/Procedures Lab Laboratory Tests 01/19/18 08:48 Patient resulted labs reviewed. Imaging: Reviewed Imaging Films, Reviewed Imaging Report Assessment/Plan Assessment and Plan Assess & Plan/Chief Complaint Pyelonephritis Diagnosis/Problems Diagnosis/Problems (1) Sepsis Status: Resolved Assessment & Plan: UA consistent with UTI Leukocytosis resolved Afebrile for 48 hours Will transition to Augmentin to complete course Blood cultures NGTD Qualifiers: Sepsis type: sepsis due to unspecified organism Qualified Codes: A41.9 - Sepsis, unspecified organism (2) Pyelonephritis Status: Acute Assessment & Plan: Abx as above (3) Pancreatitis Status: Resolved Assessment & Plan: very mild or finding may be reactive from vomiting ADAT- tolerated PO intake well yesterday and ate 100% of breakfast today Qualifiers: Chronicity: acute Pancreatitis type: unspecified pancreatitis type Acute pancreatitis complication: no infection or necrosis Qualified Codes: K85.90 - Acute pancreatitis without necrosis or infection, unspecified (4) Insulin dependent diabetes mellitus Status: Chronic Assessment & Plan: Cont SSI Cont home Novolog with meals (5) Discharge planning issues Status: Acute Assessment & Plan: Called and discussed DC plans with who is out of town and will not be back until 7pm or later tonight He feels she needs 24 hour care upon arrival home and he is unable to provide that PT/OT have evaluated and she is ambulating with walker well Will arrange for home health to continue therapy She has been afebrile for over 48 hours, leukocytosis has resolved, and she tolerating 100% of meals Culture and sensitivities are back and she can be transitioned to appropriate oral antibiotics Discussed the risks with both patient and her about continued hospital stay when not indicated but adamant that she not be discharge Offered ability to appeal discharge and he would like to begin process I discussed this with MIKE, Ms Johnson's RN, and Nurse Flatbed Stitcher of the fourth floor to inform them of process Called back with updated plan for appealing discharge and social work involvement He will not be back to hospital until tomorrow afternoon Total time spent 1207 to 1243. (6) Prophylactic measure Assessment & Plan: Lovenox [place] diet Clinical Quality Measures DVT/VTE Risk/Contraindication: Risk Factor Score Per Nursin RFS Level Per Nursing on Admit: 3=High Copy Copies To 1: ALLISON GLORIA MD, KATELYN M MD Jan 19, 2018 12:36 pm
[2018-01-19 15:45] VITALS: BP 161/70
[2018-01-19] MEDS ORDERED: AUGMENTIN 875 MG TAB (AMOXICILLIN/CLAVULANATE) PO SCH (17:00)
[2018-01-19] MEDS: ENOXAPARIN 40 MG/0.4 ML (LOVENOX) SYR SC SCH (17:25)
[2018-01-19 19:00] VITALS: BP 161/70
--- NOTE | 2018-01-19 19:18 | Discharge Summary-Hospitalist ---
Diagnosis/Chief Complaint Date of Admission Jan 17, 2018 at 2:55 am Date of Discharge Discharge Date: Jan 19, 2018 Admission Diagnosis Sepsis from pyelonephritis Discharge Diagnosis Pyelonephritis (1) Sepsis Status: Resolved Assessment & Plan: UA consistent with UTI Continue on Augmentin to complete course Discussed importance of taking it until it's finished even if she feels better Advised probiotic and yogurt with antibiotic Advised to follow up next week with Dr Loyola. (2) Pyelonephritis Status: Acute Assessment & Plan: Abx as above (3) Pancreatitis Status: Resolved Assessment & Plan: Resolved, tolerated 100% of breakfast (4) Insulin dependent diabetes mellitus Status: Chronic Assessment & Plan: Continue home prandial insulin Discharge Summary Discharge Physical Exam Allergies: Coded Allergies: metronidazole (Verified Allergy, Intermediate, hives, 03/17/17) Sulfa (Sulfonamide Antibiotics) (Verified Allergy, Unknown, 03/20/17) cephalexin (Verified Allergy, Unknown, 01/17/18) ciprofloxacin (Verified Allergy, Unknown, ITCHING, 03/17/17) codeine (Verified Allergy, Unknown, 01/17/18) metoprolol (Verified Allergy, Unknown, 01/17/18) nitrofurantoin (Verified Allergy, Unknown, 01/17/18) Vitals & I&Os Vital Signs Date Time Temp Pulse Resp B/P (MAP) Pulse Ox O2 Delivery O2 Flow Rate FiO2 01/19/18 15:45 99.8 87 18 161/70 (100) 92 Nasal Cannula 2.00 General Appearance: Alert, Oriented X3 Respiratory: Clear to Auscultation, Normal Air Movement Cardiovascular: Regular Rate, No Murmurs Abdominal: Normal Bowel Sounds, Soft, No Tenderness Neuro: Normal Speech Psych/Mental Status: Mental Status NL Hospital Course Pt is an 83yoCM with a PMH of recurrent UTIs who presented to the ER for nausea , vomiting, and back pain and was found to have sepsis from pyelonephritis. She was treated with Zosyn given her allergies and improved. Urine cultures were obtained and grew e coli and enterococcus which were sensitive to Augmentin. She was discharged home on this to complete her course. She was found to have an elevated lipase and possibly mild pancreatitis. She was treated with bowel rest for one day and then resumed a soft bland diet and did well. She was eating 100% of her meals at discharge. At [place] she was afebrile for 48 hours, her leukocytosis had resolved, and she felt well and was originally requesting discharge. Her expressed desire to appeal discharge as he did not feel comfortable bringing her home tonight because he had to work until 7pm. Patient expressed desire to appeal the discharge after she talked with her about his concerns. I reassured that she had Home Health set up to facilitate getting her home and making sure she did well. Her arrived later in the day and she requested discharge. At this time I am unsure if she ever started the appeal but she stated "I feel well and would like to go home." to me this evening. Her was at bedside and comfortable with this plan. I answered all questions and discussed return precautions for fever unresponsive to tylenol or ibuprofen, poor oral intake, feeling worse, confusion, or if she thought her symptoms were getting worse. Labs (last 24 hrs) Laboratory Tests 01/18/18 20:31: Glucometer 186H 01/19/18 06:11: Glucometer 137H 01/19/18 08:48: White Blood Count 10.5, Red Blood Count 3.25L, Hemoglobin 9.4L, Hematocrit 30L, Mean Corpuscular Volume 91, Mean Corpuscular Hemoglobin 29, Mean Corpuscular Hemoglobin Concent 32, Red Cell Distribution Width 14.4, Platelet Count 215, Mean Platelet Volume 9.2, Neutrophils (%) (Auto) 83H, Lymphocytes (%) (Auto) 11L , Monocytes (%) (Auto) 5, Eosinophils (%) (Auto) 1, Basophils (%) (Auto) 0, Neutrophils # (Auto) 8.7H, Lymphocytes # (Auto) 1.2, Monocytes # (Auto) 0.5, Eosinophils # (Auto) 0.1, Basophils # (Auto) 0.0, Sodium Level 138, Potassium Level 4.0, Chloride Level 109H, Carbon Dioxide Level 24, Anion Gap 5, Blood Urea Nitrogen 13, Creatinine 0.92, Estimat Glomerular Filtration Rate 58, BUN/ Creatinine Ratio 14, Glucose Level 208H, Calcium Level 9.0 01/19/18 11:32: Glucometer 107 01/19/18 15:49: Glucometer 156H Microbiology 01/17/18 Blood Culture - Preliminary, Resulted No growth 01/17/18 Urine Culture - Final, Complete Escherichia coli Enterococcus faecalis Patient resulted labs reviewed. Pending Labs Laboratory Tests 01/19/18 11:32: Glucometer 107 01/19/18 15:49: Glucometer 156 Discussion & Recommendations Discharge Planning: >30 minutes discharge planning Discharge Home Medications: Active Scripts Active Augmentin 875-125 Tablet (Amoxicillin/Potassium Clav) 1 Each Tablet 1 Each PO BID Reported Benadryl (Diphenhydramine HCl) 25 Mg Capsule 50 Mg PO HS Novolog Flexpen (Insulin Aspart) 300 Units/3 Ml Solution 3 Units SQ BID Melatonin 10 Mg Capsule 10 Mg PO HS Acetaminophen Extra Strength (Acetaminophen) 500 Mg Tablet 1,000 Mg PO Q6H PRN Doxycycline Hyclate 100 Mg Capsule 100 Mg PO DAILY 10 Days 10 DAY THEARPY FILLED 01-15-18 Tramadol HCl 50 Mg Tablet 50 Mg PO Q6H PRN Pantoprazole Sodium 40 Mg Tablet.dr 40 Mg PO DAILY Probiotic (Lactobacillus Acidophilus) 1 Each Capsule 1 Cap PO HS Atorvastatin Calcium 40 Mg Tablet 40 Mg PO DAILY Vitamin D3 (Cholecalciferol (Vitamin D3)) 2,000 Unit Capsule 2,000 Unit PO BID Temazepam 30 Mg Capsule 30 Mg PO HS Instructions to patient/family Please see electronic discharge instructions given to patient. Clinical Quality Measures DVT/VTE Risk/Contraindication: Risk Factor Score Per Nursin RFS Level Per Nursing on Admit: 3=High Copy Copies To 1: ALLISON LOYOLA MD Problem Qualifiers (1) Sepsis: Sepsis type: sepsis due to unspecified organism Qualified Codes: A41.9 - Sepsis, unspecified organism (2) Pancreatitis: Chronicity: acute Pancreatitis type: unspecified pancreatitis type Acute pancreatitis complication: no infection or necrosis Qualified Codes: K85.90 - Acute pancreatitis without necrosis or infection, unspecified COLIN PENALOZA MD Jan 19, 2018 7:17 pm
== END 2018-01-19 19:00 | disposition home health service (06) | DRG 871 ==
LOC: EDUNIT# 23:52 → ER 23:55 → 4TH 01-17 02:55
PROVIDERS: ADMIT Internal Medicine; ATTEND Internal Medicine
DX: A41.9 Sepsis, unspecified organism (principal); N10 Acute pyelonephritis; K85.90 Acute pancreatitis without necrosis or infection, unspecified; E11.51 Type 2 diabetes mellitus with diabetic peripheral angiopathy without gangrene; I25.10 Atherosclerotic heart disease of native coronary artery without angina pectoris; I10 Essential (primary) hypertension; E78.00 Pure hypercholesterolemia, unspecified; K21.9 Gastro-esophageal reflux disease without esophagitis; F32.9 Major depressive disorder, single episode, unspecified; M19.91 Primary osteoarthritis, unspecified site; Z79.4 Long term (current) use of insulin; Z87.891 Personal history of nicotine dependence; Z95.5 Presence of coronary angioplasty implant and graft; Z95.828 Presence of other vascular implants and grafts; Z87.19 Personal history of other diseases of the digestive system; Z86.010 Personal history of colon polyps
CPT/HCPCS: 36415; 74178; 80048; 80053; 81000; 82962; 83605; 83690; 83735; 85007; 85025; 85027; 87040; 87077; 87088; 87186; 94664; 94761; 96361; 96365; 96375

== ENCOUNTER 2018-01-21 14:30 | Emergency (ER) | payer MEDICARE, OTHER ==
[~2018-01-21] VITALS: Ht 162.6 cm; Wt 67.6 kg
[~2018-01-21 14:30] MED LIST changes: +ACET-168 PO; +AMOX-358 PO; +DIPH25CA79 PO; +DOXY100C2 PO; +INSU100I14 SQ; +MELA10CA2 PO
[2018-01-21 15:58] LABS: BILIRUBIN,URINE NEGATIVE (NEGATIVE); CLARITY,URINE CLEAR; COLOR,URINE YELLOW; GLUCOSE, URINE (UA) NEGATIVE (NEGATIVE); KETONES,URINE NEGATIVE (NEGATIVE); LEUKOCYTE ESTERASE ,URINE 1+ (NEGATIVE); NITRITE,URINE NEGATIVE (NEGATIVE); PH,URINE 5 (5-9); PROTEIN,URINE 2+ (NEGATIVE); UROBILINOGEN,URINE NORMAL (NORMAL)
[2018-01-21 16:15] LABS: RBC,URINE RARE /HPF
[2018-01-21 16:16] LABS: BACTERIA,URINE NEGATIVE /HPF; WBC,URINE 0-2 /HPF
[2018-01-21] MEDS ORDERED: IOHEXOL 350 MG/ML 100 ML (OMNIPAQUE 350) VIAL IV ONE (16:30)
[2018-01-21] MEDS ORDERED: CATHETER FLUSH 10 ML SYR IV PRN (16:30)
[2018-01-21] MEDS ORDERED: NS 250 ML (IVPB) BAG IV ONE (16:30)
[2018-01-21 17:01] LABS: BASOPHILS % (AUTO) 0 % (0-10); EOSINOPHILS # (AUTO) 0.1 10^3/uL (0.0-0.3); EOSINOPHILS % (AUTO) 1 % (0-10); HEMATOCRIT 32 % (35-52); HEMOGLOBIN 10.5 G/DL (11.5-16.0); LYMPHOCYTES # (AUTO) 1.5 X 10^3 (1.0-4.0); LYMPHOCYTES % (AUTO) 14 % (12-44); MEAN CORPUSCULAR HEMOGLOBIN 29 PG (25-34); MEAN CORPUSCULAR HGB CONC 33 G/DL (32-36); MEAN CORPUSCULAR VOLUME 88 FL (80-99); MEAN PLATELET VOLUME 10.1 FL (7.4-10.4); MONOCYTES # (AUTO) 0.8 X 10^3 (0.0-1.0); MONOCYTES % (AUTO) 7 % (0-12); NEUTROPHILS # (AUTO) 8.9 X 10^3 (1.8-7.8); NEUTROPHILS % (AUTO) 79 % (42-75); PLATELET COUNT 291 10^3/uL (130-400); RED BLOOD COUNT 3.59 10^6/uL (4.35-5.85); RED CELL DISTRIBUTION WIDTH 14.9 % (10.0-14.5); WHITE BLOOD COUNT 11.3 10^3/uL (4.3-11.0)
[2018-01-21 17:09] LABS: INR 1.1 (0.8-1.4); PROTHROMBIN TIME PATIENT 13.9 SEC (12.2-14.7)
[2018-01-21 17:21] LABS: ALANINE AMINOTRANSFERASE 111 U/L (0-55); ALBUMIN 3.6 GM/DL (3.2-4.5); ALKALINE PHOSPHATASE 150 U/L (40-136); AMYLASE 75 U/L (25-125); BILIRUBIN,TOTAL 0.9 MG/DL (0.1-1.0); BUN/CREATININE RATIO 15; CALCIUM 10.1 MG/DL (8.5-10.1); CARBON DIOXIDE 25 MMOL/L (21-32); CHLORIDE 102 MMOL/L (98-107); CREATININE SERUM 0.81 MG/DL (0.60-1.30); GFR ESTIMATED > 60; GLUCOSE 121 MG/DL (70-105); LIPASE 272 U/L (8-78); MAGNESIUM 1.4 MG/DL (1.8-2.4); POTASSIUM 3.4 MMOL/L (3.6-5.0); SODIUM 138 MMOL/L (135-145); TOTAL PROTEIN 6.8 GM/DL (6.4-8.2)
--- NOTE | 2018-01-21 17:54 | Diagnostic Imaging Report ---
INDICATION: Pancreatitis. EXAMINATION: Two views of the abdomen were obtained. FINDINGS: Lung bases are clear. Bowel gas pattern is nonspecific. Surgical clips are seen in the right upper quadrant. There are degenerative changes in the spine. IMPRESSION: Nonspecific bowel gas pattern. Dictated by: Dictated on workstation # [id number]
--- NOTE | 2018-01-21 17:56 | Diagnostic Imaging Report ---
INDICATION: Pancreatitis and nausea. Comparison is made with prior examination from 09/05/15. FINDINGS: The heart size is normal. There is a 2.5 cm mass in the right midlung. There is no pleural effusion or pneumothorax. Mediastinum is unremarkable. IMPRESSION: 1. 2.5 cm mass in the right midlung. This was present on the prior CT from 04/28/17. PET scan or biopsy should be considered if this has not already been performed. 2. No other acute cardiopulmonary abnormality. Dictated by: Dictated on workstation # [id number]
--- NOTE | 2018-01-21 18:09 | Diagnostic Imaging Report ---
PROCEDURE: CT abdomen and pelvis with contrast. TECHNIQUE: Multiple contiguous axial images were obtained through the abdomen and pelvis after administration of intravenous contrast. INDICATION: Abdominal pain with nausea and vomiting. Comparison is made with prior examination from 01/17/18. FINDINGS: There are coronary artery calcifications. There are small bilateral pleural effusions. There is minimal right basilar infiltrate. Diffuse fatty infiltration of the liver. The gallbladder is surgically absent. There is no biliary ductal dilatation. Spleen is normal. Some unchanged fullness and edema in the pancreatic head without significant surrounding peripancreatic inflammatory change. The adrenal glands are unremarkable. The kidneys are normal. The abdominal aorta is nonaneurysmal. The bowel gas pattern is nonspecific. There is no free air. There is no ascites. Bladder is normal. There is no pelvic mass or adenopathy. There are degenerative changes in the spine. IMPRESSION: 1. Unchanged fullness and edema in the pancreatic head. This is nonspecific; however, mild pancreatitis cannot be excluded. This is unchanged. 2. Diffuse fatty infiltration of the liver. 3. Mild bladder wall thickening which is also unchanged. 4. Small bilateral pleural effusions and minimal patchy infiltrate in the right lung base. 5. Coronary artery calcifications. Dictated by: Dictated on workstation # [id number]
[2018-01-21] MEDS ORDERED: ONDANSETRON 4 MG (ZOFRAN) ORAL DISSOLVE TAB PO ONE ×2 (18:30→18:45)
[2018-01-21] MEDS ORDERED: ONDA4TAB8 PO (18:38)
[2018-01-21] MEDS ORDERED: HYDR-3990 PO (18:38)
--- NOTE | 2018-01-21 18:39 | ED GI ---
General Chief Complaint: Abdominal/GI Problems Stated Complaint: CANT EAT,FEVER Nursing Triage Note: TO ROOM PATIENT REPORT THEY DISCHARGED HER FROM HOSPITAL 2 DAYS AGO WAS IN WITH DX OF PANCREATITIS. CON'T TO HAVE PAIN WITH NAUSEA UNABLE TO EAT. Sepsis Screen: No Definite Risk Allergies and Home Medications Allergies Coded Allergies: metronidazole (Verified Allergy, Intermediate, hives, 03/17/17) Sulfa (Sulfonamide Antibiotics) (Verified Allergy, Unknown, 03/20/17) cephalexin (Verified Allergy, Unknown, 01/17/18) ciprofloxacin (Verified Allergy, Unknown, ITCHING, 03/17/17) codeine (Verified Allergy, Unknown, 01/17/18) metoprolol (Verified Allergy, Unknown, 01/17/18) nitrofurantoin (Verified Allergy, Unknown, 01/17/18) Home Medications Acetaminophen 500 Mg Tablet, 1,000 MG PO Q6H PRN for PAIN-MILD, (Reported) Amoxicillin/Potassium Clav 1 Each Tablet, 1 EACH PO BID Prescribed by: COLIN PENALOZA on 01/19/18 1047 Atorvastatin Calcium 40 Mg Tablet, 40 MG PO DAILY, (Reported) Cholecalciferol (Vitamin D3) 2,000 Unit Capsule, 2,000 UNIT PO BID, (Reported) Diphenhydramine HCl 25 Mg Capsule, 50 MG PO HS, (Reported) Insulin Aspart 300 Units/3 Ml Solution, 3 UNITS SQ BID, (Reported) Lactobacillus Acidophilus 1 Each Capsule, 1 CAP PO HS, (Reported) Melatonin 10 Mg Capsule, 10 MG PO HS, (Reported) Pantoprazole Sodium 40 Mg Tablet.dr, 40 MG PO DAILY, (Reported) Temazepam 30 Mg Capsule, 30 MG PO HS, (Reported) Tramadol HCl 50 Mg Tablet, 50 MG PO Q6H PRN for PAIN-MODERATE, (Reported) Past Mrakyos-Zaeqos-Rgyoth Hx Patient Social History Type Used: Cigarettes Former Smoker, Quit: Sep 30, 1996 2nd Hand Smoke Exposure: No Recent Foreign Travel: No Contact w/Someone Who Travel: No Recent Infectious Disease Expo: No Recent Hopitalizations: No Immunizations Up To Date Tetanus Booster (TDap): Unknown PED Vaccines UTD: No Date of Pneumonia Vaccine: May 17, 2016 Date of Influenza Vaccine: Sep 29, 2017 Seasonal Allergies Seasonal Allergies: No Surgeries History of Surgeries: Yes (BACK, HAD TO HAVE 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) Surgeries: Appendectomy, Bladder Surgery, Coronary Stent, Gallbladder, Hysterectomy, Vascular Surgery Respiratory History of Respiratory Disorde: Yes Respiratory Disorders: Pneumonia Currently Using CPAP: No Currently Using BIPAP: No Cardiovascular History of Cardiac Disorders: Yes (STENTS, 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 Cotton) Genitourinary Disorders: Bladder Infection, UTI-Chronic Gastrointestinal History of Gastrointestinal Di: Yes Gastrointestinal Disorders: Gastroesophageal Reflux, Chronic Constipation, Diverticulosis, Hemorrhoids, Pancreatitis, Polyps Musculoskeletal History of Musculoskeletal Dis: Yes Musculoskeletal Disorders: Arthritis, Chronic Back Pain Endocrine History of Endocrine Disorders: Yes (multinodular goiter) Endocrine Disorders: Diabetes, Insulin dep HEENT Loss of Vision: Bilateral Hearing Impairment: Denies Cancer History of Cancer: No Psychosocial History of Psychiatric Problem: No (IN THE PAST) Behavioral Health Disorders: Depression Integumentary History of Skin or Integumenta: Yes (OCCASIONALLY) Skin/Integumentary Disorders: Psoriasis Blood Transfusions 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) Adverse Reaction to a Blood Tr: No (HAS HAD BLOOD TRANSFUSION WITH NO DIFFICULTY) Family Medical History Significant Family History: Cancer Family Medial History: Cancer of mouth Diabetes mellitus 19 FATHER Dysphasia G8 SISTER FH: thyroid cancer Myocardial infarction 19 FATHER Physical Exam Vital Signs VS - Last 72 Hours, by Label 01/21/18 15:04 Temp 98.3 Pulse 78 B/P (MAP) 136/56 (82) Pulse Ox 98 O2 Delivery Room Air Capillary Refill : Less Than 3 Seconds Focused Exam Evaluation Lactate Level Laboratory Tests 01/21/18 16:43: Lactic Acid Level 1.62 Lactic Acid Level Laboratory Tests Test 01/21/18 16:43 Lactic Acid Level 1.62 MMOL/L (0.50-2.00) Progress/Results/Core Measures Results/Orders Lab Results Laboratory Tests Test 01/21/18 15:50 01/21/18 16:43 Range/Units Urine Color YELLOW Urine Clarity CLEAR Urine pH 5 5-9 Urine Specific [place] 1.010 L 1.016-1.022 Urine Protein 2+ H NEGATIVE Urine Glucose (UA) NEGATIVE NEGATIVE Urine Ketones NEGATIVE NEGATIVE Urine Nitrite NEGATIVE NEGATIVE Urine Bilirubin NEGATIVE NEGATIVE Urine Urobilinogen NORMAL NORMAL MG/DL Urine Leukocyte Esterase 1+ H NEGATIVE Urine RBC (Auto) 1+ H NEGATIVE Urine RBC RARE /HPF Urine WBC 0-2 /HPF Urine Squamous Epithelial Cells 10-25 H /HPF Urine Crystals NONE /LPF Urine Bacteria NEGATIVE /HPF Urine Casts NONE /LPF Urine Mucus NEGATIVE /LPF Urine Culture Indicated NO White Blood Count 11.3 H 4.3-11.0 10^3/uL Red Blood Count 3.59 L 4.35-5.85 10^6/uL Hemoglobin 10.5 L 11.5-16.0 G/DL Hematocrit 32 L 35-52 % Mean Corpuscular Volume 88 80-99 FL Mean Corpuscular Hemoglobin 29 25-34 PG Mean Corpuscular Hemoglobin Concent 33 32-36 G/DL Red Cell Distribution Width 14.9 H 10.0-14.5 % Platelet Count 291 130-400 10^3/uL Mean Platelet Volume 10.1 7.4-10.4 FL Neutrophils (%) (Auto) 79 H 42-75 % Lymphocytes (%) (Auto) 14 12-44 % Monocytes (%) (Auto) 7 0-12 % Eosinophils (%) (Auto) 1 0-10 % Basophils (%) (Auto) 0 0-10 % Neutrophils # (Auto) 8.9 H 1.8-7.8 X 10^3 Lymphocytes # (Auto) 1.5 1.0-4.0 X 10^3 Monocytes # (Auto) 0.8 0.0-1.0 X 10^3 Eosinophils # (Auto) 0.1 0.0-0.3 10^3/uL Basophils # (Auto) 0.0 0.0-0.1 10^3/uL Prothrombin Time 13.9 12.2-14.7 SEC INR Comment 1.1 0.8-1.4 Activated Partial Thromboplast Time 32 24-35 SEC Sodium Level 138 135-145 MMOL/L Potassium Level 3.4 L 3.6-5.0 MMOL/L Chloride Level 102 98-107 MMOL/L Carbon Dioxide Level 25 21-32 MMOL/L Anion Gap 11 5-14 MMOL/L Blood Urea Nitrogen 12 7-18 MG/DL Creatinine 0.81 0.60-1.30 MG/DL Estimat Glomerular Filtration Rate > 60 BUN/Creatinine Ratio 15 Glucose Level 121 H 70-105 MG/DL Lactic Acid Level 1.62 0.50-2.00 MMOL/L Calcium Level 10.1 8.5-10.1 MG/DL Magnesium Level 1.4 L 1.8-2.4 MG/DL Total Bilirubin 0.9 0.1-1.0 MG/DL Aspartate Amino Transf (AST/SGOT) 37 H 5-34 U/L Alanine Aminotransferase (ALT/SGPT) 111 H 0-55 U/L Alkaline Phosphatase 150 H 40-136 U/L Total Protein 6.8 6.4-8.2 GM/DL Albumin 3.6 3.2-4.5 GM/DL Amylase Level 75 25-125 U/L Lipase 272 H 8-78 U/L My Orders Orders - BRET ZUÑIGA DO Saline Lock/Iv-Start (01/21/18 15:17) Cbc With Automated Diff (01/21/18 15:17) Comprehensive Metabolic Panel (01/21/18 15:17) Lactic Acid Analyzer (01/21/18 15:17) Magnesium (01/21/18 15:17) Protime With Inr (01/21/18 15:17) Partial Thromboplastin Time (01/21/18 15:17) Ua Culture If Indicated (01/21/18 15:17) Blood Culture (01/21/18 15:17) Amylase (01/21/18 15:20) Lipase (01/21/18 15:20) Ct Abdomen/Pelvis W (01/21/18 16:21) Chest Pa/Lat (2 View) (01/21/18 16:21) Abdomen, Flat & Upright/Decub (01/21/18 16:21) Iohexol Injection (Omnipaque 350 Mg/Ml 1 (01/21/18 16:30) Sodium Chloride Flush (Catheter Flush Sy (01/21/18 16:30) Ns (Ivpb) (Sodium Chloride 0.9%) (01/21/18 16:30) Pharmacy Communication (Pharmacy Communi (01/21/18 16:26) Ondansetron Oral Dissolve Tab (Zofran (01/21/18 18:30) Medications Given in ED Current Medications Medications Dose Ordered Sig/Miri Route Start Time Stop Time Status Last Admin Dose Admin Iohexol 100 ml ONCE ONCE IV 01/21/18 16:30 01/21/18 16:31 DC 01/21/18 17:50 100 ML Sodium Chloride 10 ml NEEDED PRN IV 01/21/18 16:30 01/21/18 17:51 10 ML Sodium Chloride 250 ml ONCE ONCE IV 01/21/18 16:30 01/21/18 16:31 DC 01/21/18 17:50 80 ML Vital Signs/I&O Vital Sign - Last 12Hours 01/21/18 15:04 Temp 98.3 Pulse 78 B/P (MAP) 136/56 (82) Pulse Ox 98 O2 Delivery Room Air Blood Pressure Mean: 82 Departure Impression Impression: Primary Impression: Urinary tract infection Additional Impressions: Pancreatitis Pulmonary nodule, right Disposition: 01 HOME, SELF-CARE Condition: Improved Departure-Patient Inst. Referrals: ALLISON GLORIA MD (PCP/Family) Primary Care Physician Patient Instructions: Pancreatitis (DC), Urinary Tract Infection, Adult (DC) Add. Discharge Instructions: TAKE YOUR REGULAR MEDICATIONS PRESCRIBED TAKE AUGMENTIN PRESCRIBED TAKE ACIDOPHILUS 2 PILLS 4 TIMES A DAY WHILE ON ANTIBIOTICS CLEAR LIQUIDS--WATER, BROTH, JELLO, GATORADE WHEN YOUR NAUSEA IS BETTER, ADD BRATS DIET TO CLEAR LIQUIDS--BANANAS, RICE, APPLESAUCE, TOAST, SALTINES FOLLOW UP WITH DR. GLORIA IN 2-3 DAYS FOR FURTHER CARE All discharge instructions reviewed with patient and/or family. Voiced understanding. Scripts Hydrocodone/Ibuprofen (Hydrocodone-Ibuprofen 5-200 mg) 1 Each Tablet 1 EACH PO Q 4 HOURS for Pain, #20 TAB Prov: BRET ZUÑIGA DO 01/21/18 Ondansetron (Zofran Odt) 4 Mg Tab.rapdis 4 MG PO Q4H for Nausea/Vomiting, #10 TAB Prov: BRET ZUÑIGA DO 01/21/18 BRET ZUÑIGA DO Jan 21, 2018 18:39
[2018-01-21] MEDS ORDERED: HYDROcodone/APAP 5 MG/325 MG (LORTAB) TAB PO ONE (18:45)
[2018-01-21 18:54] VITALS: BP 136/62
== END 2018-01-21 18:53 | disposition home or self-care (01) ==
LOC: EDUNIT# 14:30 → ER 14:31
DX: N39.0 Urinary tract infection, site not specified (principal); K85.90 Acute pancreatitis without necrosis or infection, unspecified; R91.1 Solitary pulmonary nodule; I25.10 Atherosclerotic heart disease of native coronary artery without angina pectoris; E78.00 Pure hypercholesterolemia, unspecified; I10 Essential (primary) hypertension; I73.9 Peripheral vascular disease, unspecified; F32.9 Major depressive disorder, single episode, unspecified; K21.9 Gastro-esophageal reflux disease without esophagitis; E11.9 Type 2 diabetes mellitus without complications; Z86.010 Personal history of colon polyps; Z95.820 Peripheral vascular angioplasty status with implants and grafts; Z82.49 Family history of ischemic heart disease and other diseases of the circulatory system; Z80.8 Family history of malignant neoplasm of other organs or systems; Z87.448 Personal history of other diseases of urinary system; Z87.19 Personal history of other diseases of the digestive system; Z88.2 Allergy status to sulfonamides; Z88.1 Allergy status to other antibiotic agents; Z88.5 Allergy status to narcotic agent; Z88.8 Allergy status to other drugs, medicaments and biological substances; Z79.4 Long term (current) use of insulin; Z87.891 Personal history of nicotine dependence; Z90.49 Acquired absence of other specified parts of digestive tract; Z95.5 Presence of coronary angioplasty implant and graft; Z90.710 Acquired absence of both cervix and uterus; Z87.01 Personal history of pneumonia (recurrent)
CPT/HCPCS: 36415; 71046; 74019; 74177; 80053; 81000; 82150; 83605; 83690; 83735; 85025; 85610; 85730; 87040

== ENCOUNTER 2018-01-29 14:39 | Outpatient (CLI) | payer MEDICARE, OTHER ==
[~2018-01-29] VITALS: Ht 162.6 cm; Wt 67.6 kg
[~2018-01-29 14:39] MED LIST changes: +HYDR-3990 PO
[2018-01-29 15:05] VITALS: BP 165/119
[2018-01-29] MEDS ORDERED: NS IV 500 ML 500 ML IV SCH (15:30)
[2018-01-29] MEDS ORDERED: MELA3TAB PO (15:43)
[2018-01-29] MEDS ORDERED: ASPI-586 PO (15:46)
[2018-01-29 16:00] VITALS: BP 134/70
[2018-01-29 16:15] VITALS: BP 150/66
[2018-01-29] MEDS ORDERED: HYDR25SU8 RC (16:30)
[2018-01-29] MEDS ORDERED: DIPH1TAB25 PO (16:30)
[2018-01-29] MEDS ORDERED: DOCU100C37 PO (16:30)
[2018-01-29 18:10] VITALS: BP 152/57
[2018-01-29 18:28] LABS: HEMOGLOBIN 12.4 G/DL (11.5-16.0)
[2018-01-29 18:30] VITALS: BP 152/57
[2018-01-29 18:40] VITALS: BP 152/57
== END 2018-01-29 18:30 | disposition home or self-care (01) ==
LOC: SDC 14:39
PROVIDERS: ATTEND Family Medicine
DX: D63.8 Anemia in other chronic diseases classified elsewhere (principal); R53.83 Other fatigue
CPT/HCPCS: 36415; 36430; 85014; 85018; 86850; 86900; 86901; 86920

== ENCOUNTER 2018-05-01 08:04 | Day surgery (SDC) | payer MEDICARE, OTHER ==
[~2018-05-01] VITALS: Ht 162.6 cm; Wt 60.8 kg
[2018-05-01] VITALS (12 sets, daily range): BP systolic 115–157; BP diastolic 64–80
[~2018-05-01 08:04] MED LIST changes: +ASPI-586 PO; +DIPH1TAB25 PO; +DOCU100C37 PO; +HYDR25SU8 RC; +MELA3TAB PO; -METF500T4 PO; +METF500T5 PO
[2018-05-01] MEDS ORDERED: LIDOCAINE 1% INJ 20 ML 20 ML VIAL ONE (08:14)
[2018-05-01] MEDS ORDERED: NS IV 1000 ML 1,000 ML ONE (08:14)
[2018-05-01] MEDS ORDERED: HEParin (CATH LAB) 2,000 ML IV ONE (08:14)
[2018-05-01] MEDS ORDERED: NS IV 1000 ML 1,000 ML IV SCH ×2 (08:45→10:24)
[2018-05-01 09:00] LABS: HEMOGLOBIN 12.4 G/DL (11.5-16.0); MEAN PLATELET VOLUME 8.7 FL (7.4-10.4); RED BLOOD COUNT 4.12 10^6/uL (4.35-5.85); RED CELL DISTRIBUTION WIDTH 13.8 % (10.0-14.5); WHITE BLOOD COUNT 9.1 10^3/uL (4.3-11.0)
[2018-05-01 09:14] LABS: INR 1.1 (0.8-1.4); PROTHROMBIN TIME PATIENT 13.8 SEC (12.2-14.7)
[2018-05-01] MEDS ORDERED: MELA10CA2 PO (09:19)
[2018-05-01] MEDS ORDERED: MIDAZOLAM 5 MG/5 ML (VERSED) VIAL ONE (09:20)
[2018-05-01] MEDS ORDERED: fentaNYL INJECTION 100 MCG/2 ML AMP ONE (09:20)
[2018-05-01] MEDS ORDERED: diphenhydrAMINE 50 MG/ML INJ (BENADRYL) ONE (09:20)
[2018-05-01 09:21] LABS: ALBUMIN 4.1 GM/DL (3.2-4.5); BILIRUBIN,TOTAL 0.4 MG/DL (0.1-1.0); CREATININE SERUM 1.02 MG/DL (0.60-1.30); POTASSIUM 3.9 MMOL/L (3.6-5.0); TOTAL PROTEIN 6.7 GM/DL (6.4-8.2)
[2018-05-01] MEDS ORDERED: LACT1CAP62 PO (09:21)
[2018-05-01] MEDS ORDERED: SIME80TA16 PO (09:21)
[2018-05-01] MEDS ORDERED: CRAN500C4 PO (09:24)
[2018-05-01] MEDS ORDERED: DIPH25CA6 PO (09:25)
[2018-05-01] MEDS ORDERED: POLY17PO6 PO (09:26)
[2018-05-01] MEDS ORDERED: DOCU100C37 PO (09:26)
[2018-05-01] MEDS ORDERED: PYRI100T2 PO (09:27)
[2018-05-01] MEDS ORDERED: INSU100V SQ (09:29)
[2018-05-01] MEDS ORDERED: HYDR25SU8 RC (09:30)
--- NOTE | 2018-05-01 09:44 | Cardiac Procedure Note-CS/ASA ---
Pre-Procedure Note Pre-Op Procedure Note H&P Reviewed The H&P was reviewed, patient examined and no changes noted. Date H&P Reviewed: May 01, 2018 Time H&P Reviewed: 09:43 Conscious Sedation Pre-Proced Time Reviewed: 09:43 ASA Class: 3 Airway Mallampati Classification: (resighini appropriate class) I. II. III, IV Lungs Heart ASA score ASA 1: a normal healthy patient ASA 2: a patient with a mild systemic disease (mid diabetes, controlled hypertension, obesity ASA 3: a patient with a severe systemic disease that limits activity (angina , COPD, prior Myocardial infarction) ASA 4: a patient with an incapacitating disease that is a constant threat to life (CHF, renal failure) ASA 5: a moribund patient not expected to survive 24 hrs. (ruptured aneurysm) ASA 6: a declared brain patient whose organs are being harvested. For emergent operations, add the letter E after the classification Grade 2 Sedation Plan: Analgesia, Amnesia, Plan communicated to team members, Discussed options with patient/fam, Discussed risks with patient/fam Note The patient is an appropriate candidate to undergo the planned procedure, sedation, and anesthesia. The patient immediately re-assessed prior to indication. JAZMIN ROPER MD FACP FAC CCDS May 01, 2018 09:44
--- NOTE | 2018-05-01 10:29 | Discharge Inst-Cardiology ---
Discharge Inst-Cardiac Discharge Medications Continued Medications: Acetaminophen (Acetaminophen Extra Strength) 500 Mg Tablet 1000 MG PO Q6H PRN for PAIN-MILD, TAB Aspirin (Aspir 81) 81 Mg Tablet.dr 81 MG PO DAILY, TAB Atorvastatin Calcium (Atorvastatin Calcium) 40 Mg Tablet 40 MG PO DAILY, TAB Cholecalciferol (Vitamin D3) (Vitamin D3) 2,000 Unit Capsule 2000 UNIT PO BID, CAP Cranberry Extract (Cranberry) 500 Mg Capsule 500 MG PO BID, CAP Diphenhydramine HCl (Diphenhydramine HCl) 25 Mg Capsule 25 MG PO HS for SLEEP, CAP Docusate Sodium (Docusate Sodium) 100 Mg Capsule 100 MG PO PRN PRN for CONSTIPATION-1ST LINE, CAP Hydrocortisone Acetate (Anucort-Hc) 25 Mg Supp.rect 25 MG RC BID PRN for CONSTIPATION-3RD LINE, SUPP.RECT Insulin Lispro (Humalog) 100 Unit/1 Ml Vial 5 UNIT SQ ACHS, VIAL Lactobacillus Acidophilus (Probiotic) 1 Each Capsule 1 EACH PO BID, CAP Melatonin (Melatonin) 10 Mg Capsule 10 MG PO HS, CAP Pantoprazole Sodium (Pantoprazole Sodium) 40 Mg Tablet.dr 40 MG PO DAILY, TAB Polyethylene Glycol 3350 (Miralax) 17 Gm Powd.pack 17 GM PO PRN for Constipation, EACH Pyridoxine HCl (Vitamin B-6) 100 Mg Tablet 100 MG PO DAILY, TAB Temazepam (Temazepam) 30 Mg Capsule 30 MG PO HS, CAP Tramadol HCl (Tramadol HCl) 50 Mg Tablet 50 MG PO Q6H PRN for PAIN-MODERATE, TAB JAZMIN ROPER MD FACP FAC CCDS May 01, 2018 10:29
--- NOTE | 2018-05-01 10:29 | Discharge Inst-Post CATH ---
Discharge Inst-CATH Post Cardiac Cath D/C Inst Follow Up/Plan F/u with Dr Tejeda in 1-2 weeks CARDIAC CATH DISCHARGE INSTRUCTIONS *Hold Metformin for 48 hours post heart cath. ACTIVITY * Go Home directly and rest. * Limit activity of the leg (or wrist if it was used) for 7 days including aerobics, swimming, jogging, bicycling, etc. * Restrict stair-climbing for 7 days if possible, if not, climb up with your non -cath leg, then bring together on the same step. * Avoid lifting, pushing, pulling or excessive movement of the affected extremity for 7 days. * Customary sexual activity may be resumed after 2 days-use caution not to use a position that strains or causes pain to the affected extremity. * No driving for 24 hours. * NO SMOKING. * Avoid straining for bowel movements for 7 days. * Gentle walking on level ground is allowed. * Returning to work will depend on the type of procedure and the results. Your doctor will discuss this with you. CALL YOUR DOCTOR FOR ANY OF THE FOLLOWING: *If bleeding from the puncture site occurs- Apply gentle pressure to site with clean cloth and call your doctor or EMS. * If a knot or lump forms under the skin, increases in size, or causes pain. * If bruising appears to be worsening or moving further down your leg instead of disappearing. * Temperature above 101 F. CARE OF YOUR GROIN INCISION; * Bruising or purple discoloration of the skin near the puncture site is common. * You may shower only, no bathtub bathing for 5 days. Be careful to avoid slipping as your leg may feel stiff. * If a closure device was used on your femoral artery, please see the attached guide regarding care of the device and your leg. * REMOVE the dressing from your groin the next day after your procedure in the shower. CARE OF YOUR WRIST INCISION; * Bruising or purple discoloration of the skin near the puncture site is common. * You may shower. * DO NOT submerge wrist. * Remove dressing in 24 hours. JAZMIN TEJEDA MD [facility] CCDS May 01, 2018 10:29
[2018-05-01] MEDS ORDERED: PATIENT MAY USE OWN MEDS, ALL PO SCH (10:30)
--- NOTE | 2018-05-01 11:39 | OPERATIVE REPORT ---
DATE OF SERVICE: 05/01/2018 PERIPHERAL ANGIOGRAPHY REPORT The patient is an 83-year-old lady who has a history of peripheral arterial disease and has peripheral arterial disease risk factors. She notes symptoms consistent with leg claudication. Leg claudication occurs at walking half a block. Accordingly, abdominal aortic and peripheral angiography was recommended and carried out today after having obtained an informed consent. DESCRIPTION OF PROCEDURE: She was brought to the cardiac catheterization laboratory in a fasting state. The right groin was prepared and draped in usual sterile fashion. Lidocaine 1% was used for local anesthesia. Modified Seldinger technique was used to advance a 5-Indonesian sheath into the right femoral artery. A 5-Indonesian pigtail catheter used for abdominal aortic angiography with the pigtail placed at the level of L1. Subsequently, the pigtail was pulled back down to the level of the aortoiliac bifurcation and bilateral leg artery angiography was performed with runoff down to the level of the ankles. She tolerated the procedure well. At the end of the procedure, she was transferred to the holding area for manual sheath removal. ABDOMINAL AORTIC ANGIOGRAPHY: Abdominal aortic angiography did not indicate any abdominal aortic aneurysm or dissection. Abdominal aortic calcification is seen in the lower abdominal aorta. This is diffused. Renal arteries are identified and are intact without any significant stenoses. The mesenteric vessels, to the extent visualized, do not exhibit significant disease. The aortoiliac bifurcation is intact and there is mild to moderate amount of calcification. BILATERAL LEG ARTERY ANGIOGRAPHY: Bilateral leg artery angiography indicates a diffuse proximal calcification within the iliac and femoral arteries. The common iliac arteries, the external iliac arteries, the internal iliac arteries, the common and deep femoral arteries, and the superficial femoral arteries do not exhibit any significant stenoses in either side. The right popliteal artery exhibits 40% to 50% stenosis. There is a 3-vessel runoff on both sides. CONCLUSIONS: 1. Atherosclerosis of the abdominal aorta without abdominal aortic aneurysm, dissection or stenosis. 2. Intact bilateral renal arteries without significant stenosis. 3. Intact arterial circulation to both lower limbs with mild to moderate diffuse disease. DISCUSSION AND RECOMMENDATIONS: Based on the results of this study, it appears appropriate to continue a conservative approach. Focus of cardiovascular management is on risk factor modification. Outpatient followup is advised. Job ID: [id number] DocumentID: [id number] Dictated Date: 05/01/2018 10:18:18 Rigging Foreman Date: 05/01/2018 11:38:38 Dictated By: JAZMIN ROPER MD, MA, FACP, FACC,
== END 2018-05-01 15:55 | disposition home or self-care (01) ==
LOC: CATH 08:04 → SURG 10:56 → CATH 15:55
PROVIDERS: ATTEND Internal Medicine Cardiovascular Disease
DX: I70.213 Atherosclerosis of native arteries of extremities with intermittent claudication, bilateral legs (principal); I70.0 Atherosclerosis of aorta; I25.10 Atherosclerotic heart disease of native coronary artery without angina pectoris; E78.5 Hyperlipidemia, unspecified; E11.9 Type 2 diabetes mellitus without complications; Z79.82 Long term (current) use of aspirin; Z79.4 Long term (current) use of insulin; Z79.899 Other long term (current) drug therapy; Z87.891 Personal history of nicotine dependence
CPT/HCPCS: 36415; 75625; 75716; 80053; 80061; 85027; 85610; 85730; 87081

== ENCOUNTER → 2018-11-20 | Outpatient (CLI) | payer MEDICARE, OTHER ==
[~2018-11-20] MED LIST changes: +CRAN500C4 PO; +DIPH25CA6 PO; +HYDR-4226 PO; -HYDR-757 PO; +INSU100V SQ; +METF-397 PO; -METF500T5 PO; -OXYC-197 PO; +OXYC1TAB87 PO; +POLY17PO6 PO; +PYRI100T2 PO; +SIME80TA16 PO
[2018-11-20 14:58] LABS: BILIRUBIN,URINE NEGATIVE (NEGATIVE); CLARITY,URINE SLIGHTLY CLOUDY; COLOR,URINE YELLOW; GLUCOSE, URINE (UA) NEGATIVE (NEGATIVE); KETONES,URINE NEGATIVE (NEGATIVE); LEUKOCYTE ESTERASE ,URINE 3+ (NEGATIVE); NITRITE,URINE NEGATIVE (NEGATIVE); PH,URINE 5 (5-9); PROTEIN,URINE 2+ (NEGATIVE); UROBILINOGEN,URINE NORMAL (NORMAL)
[2018-11-20 15:06] LABS: BACTERIA,URINE FEW /HPF; RBC,URINE RARE /HPF; WBC,URINE TNTC /HPF
== END ==
LOC: LAB 14:33
PROVIDERS: ATTEND Urology
DX: N39.0 Urinary tract infection, site not specified (principal)
CPT/HCPCS: 81000; 87077; 87088

== ENCOUNTER → 2018-11-29 | Outpatient (CLI) | payer MEDICARE, OTHER ==
[~2018-11-29] VITALS: Ht 162.6 cm; Wt 65.8 kg
[~2018-11-29] MED LIST changes: +CATHETER FLUSH 10 ML SYR IV PRN; +REGADENOSON 0.4 MG/5 ML SYR (LEXISCAN) IV ONE
[2018-11-29 07:19] LABS: ALBUMIN 3.9 GM/DL (3.2-4.5); BILIRUBIN,TOTAL 0.3 MG/DL (0.1-1.0); CALCIUM 10.2 MG/DL (8.5-10.1); CREATININE SERUM 1.07 MG/DL (0.60-1.30); POTASSIUM 4.3 MMOL/L (3.6-5.0); TOTAL PROTEIN 6.9 GM/DL (6.4-8.2)
[2018-11-29 07:23] LABS: BASOPHILS % (AUTO) 0 % (0-10); EOSINOPHILS # (AUTO) 0.3 10^3/uL (0.0-0.3); EOSINOPHILS % (AUTO) 3 % (0-10); HEMATOCRIT 37 % (35-52); HEMOGLOBIN 11.7 G/DL (11.5-16.0); LYMPHOCYTES # (AUTO) 1.9 X 10^3 (1.0-4.0); LYMPHOCYTES % (AUTO) 21 % (12-44); MEAN CORPUSCULAR HEMOGLOBIN 28 PG (25-34); MEAN CORPUSCULAR HGB CONC 32 G/DL (32-36); MEAN CORPUSCULAR VOLUME 89 FL (80-99); MONOCYTES # (AUTO) 0.6 X 10^3 (0.0-1.0); MONOCYTES % (AUTO) 7 % (0-12); NEUTROPHILS # (AUTO) 6.5 X 10^3 (1.8-7.8); NEUTROPHILS % (AUTO) 69 % (42-75); PLATELET COUNT 302 10^3/uL (130-400); RED CELL DISTRIBUTION WIDTH 13.8 % (10.0-14.5); WHITE BLOOD COUNT 9.3 10^3/uL (4.3-11.0)
[2018-11-29 07:58] LABS: ERYTHROCYTE SEDIMENTATION RATE 42 MM/HR (0-30)
== END ==
LOC: CARD 06:42
PROVIDERS: ATTEND Internal Medicine Cardiovascular Disease
DX: I25.10 Atherosclerotic heart disease of native coronary artery without angina pectoris (principal); I77.89 Other specified disorders of arteries and arterioles; R53.83 Other fatigue; E78.5 Hyperlipidemia, unspecified; I73.9 Peripheral vascular disease, unspecified; R06.02 Shortness of breath
CPT/HCPCS: 36415; 78452; 80053; 80061; 83735; 84443; 85025; 85652; 93017

== ENCOUNTER → 2019-04-23 | Outpatient (CLI) | payer MEDICARE, OTHER ==
[~2019-04-23] MED LIST changes: -CATHETER FLUSH 10 ML SYR IV PRN; -REGADENOSON 0.4 MG/5 ML SYR (LEXISCAN) IV ONE
--- NOTE | 2019-04-23 17:37 | Diagnostic Imaging Report ---
INDICATION: Chest pain. Time of exam 3:46 p.m. COMPARISON: Correlation is made with prior chest from 01/21/2018. FINDINGS: There is an enlarging masslike density in the right midlung when compared with prior exam. This now measures approximate 4 cm compared with 2.5 cm. Left lung is clear. No effusion or pneumothorax is seen. IMPRESSION: Enlarging right lung mass when compared with examination from 01/21/2018. Dictated by: Dictated on workstation # [id number]
== END ==
LOC: RAD 15:28
PROVIDERS: ATTEND Family Medicine
DX: R91.8 Other nonspecific abnormal finding of lung field (principal); E11.9 Type 2 diabetes mellitus without complications; R07.9 Chest pain, unspecified
CPT/HCPCS: 71046

== ENCOUNTER → 2019-05-06 | Outpatient (CLI) | payer MEDICARE, OTHER ==
[~2019-05-06] MED LIST changes: +RT-ALBUTEROL SULF 2.5 MG/3 ML PRE-MIX VIAL INH ONE
== END ==
LOC: RT 13:07
PROVIDERS: ATTEND Internal Medicine Critical Care Medicine
DX: R06.02 Shortness of breath (principal); R91.8 Other nonspecific abnormal finding of lung field
CPT/HCPCS: 94060; 94729

== ENCOUNTER → 2019-05-07 | Outpatient (CLI) | payer MEDICARE, OTHER ==
[~2019-05-07] MED LIST changes: +HOLD METFORMIN - RECEIVED CONTRAST 20 ML VIAL IV SCH; +IOHEXOL 350 MG/ML 100 ML (OMNIPAQUE 350) VIAL IV ONE; +NS 100 ML (IVPB) BAG IV ONE; -RT-ALBUTEROL SULF 2.5 MG/3 ML PRE-MIX VIAL INH ONE
[2019-05-07 10:03] LABS: CREATININE SERUM 0.89 MG/DL (0.60-1.30)
--- NOTE | 2019-05-07 11:34 | Diagnostic Imaging Report ---
PROCEDURE: CT chest, abdomen, and pelvis with contrast. TECHNIQUE: Multiple contiguous axial images were obtained through the chest, abdomen, and pelvis after the administration of intravenous contrast. Auto Exposure Controls were utilized during the CT exam to meet ALARA standards for radiation dose reduction. INDICATION: Abnormal chest x-ray, lung mass. COMPARISON: 01/21/2018. FINDINGS: In the region of the previously seen right middle lobe lung nodule, there is now a 4.8 x 3.7 cm mass extending to the right hilum. Mediastinal lymph nodes are nonenlarged with the largest being the subcarinal node that measures 9 mm. No axillary or supraclavicular lymphadenopathy. Left thyroid nodule is stable. Heart size is normal. No pericardial effusion. Aorta is normal in caliber. No central pulmonary embolism. There is no edema or pneumonia. There is an 8 mm groundglass nodule in the left lower lobe (series 2, image 29). Lungs are mildly emphysematous. There is hepatic steatosis. Gallbladder is absent. No suspicious liver lesions are seen. No biliary ductal dilation. There is pneumobilia, likely related to prior sphincterotomy. Pancreas, spleen and adrenal glands are normal. Kidneys enhance symmetrically without focal lesion. No hydronephrosis. Urinary bladder is normal. There is no pelvic mass. There are no dilated loops of large or small bowel. No abdominal or pelvic lymphadenopathy. There is a large duodenal diverticulum. The abdominal aorta is normal in caliber. Surgical clips are seen in the right groin. There are no suspicious osseous lesions. There is a hemisacralized right L5. IMPRESSION: 1. Increase in size of the right lung mass now measuring 4.8 x 3.7 cm and invading the right middle lobe bronchus. 2. No metastatic disease identified. 3. Small groundglass nodule in the left lower lobe may represent a lesion in the low-grade adenocarcinoma spectrum and should continue to be followed. This would be very unusual to represent metastatic disease. 4. Hepatic steatosis. Dictated by: Dictated on workstation # [id number]
== END ==
LOC: RAD 09:25
PROVIDERS: ATTEND Internal Medicine Critical Care Medicine
DX: K76.0 Fatty (change of) liver, not elsewhere classified (principal); R91.8 Other nonspecific abnormal finding of lung field; Z98.890 Other specified postprocedural states; Z90.49 Acquired absence of other specified parts of digestive tract
CPT/HCPCS: 36415; 71260; 74177; 82565; 84520

== ENCOUNTER → 2019-05-14 | Outpatient (CLI) | payer MEDICARE, OTHER ==
[~2019-05-14] MED LIST changes: -HOLD METFORMIN - RECEIVED CONTRAST 20 ML VIAL IV SCH; -IOHEXOL 350 MG/ML 100 ML (OMNIPAQUE 350) VIAL IV ONE; -NS 100 ML (IVPB) BAG IV ONE
--- NOTE | 2019-05-14 13:32 | Diagnostic Imaging Report ---
INDICATION: Right middle lobe lung mass. TECHNIQUE: Serum blood glucose level at the time of injection was 171 mg/dL. The patient was administered 12.5 mCi F-18 FDG intravenously in the right antecubital region and PET imaging was performed from the top of skull to mid thighs. Noncontrast CT was also performed for attenuation correction and anatomic correlation. COMPARISON: No prior PET studies are available for comparison. Comparison is made with recent CT study of the chest, abdomen and pelvis performed on 05/07/2019. FINDINGS: There is symmetric activity throughout the brain. Soft tissues of the neck are unremarkable. Intensely hypermetabolic mass involving the right middle lobe is noted with SUVmax of approximately 22. The mass abuts the right hilum. No separate site of hilar or mediastinal hypermetabolism is seen. No other pulmonary parenchymal hypermetabolism is identified. Imaging through the abdomen and pelvis demonstrates physiologic activity within the GI and tracts. No suspicious site of hypermetabolism is identified. 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 This does abut the right hilum. No other areas of metastatic disease are seen. Dictated by: Dictated on workstation # [id number]
== END ==
LOC: RAD 05-07 07:31
PROVIDERS: ATTEND Internal Medicine Critical Care Medicine
DX: R91.8 Other nonspecific abnormal finding of lung field (principal); R06.02 Shortness of breath; R05 Cough

== ENCOUNTER 2019-05-15 07:53 | Day surgery (SDC) | payer MEDICARE, OTHER ==
[2019-05-15] VITALS (10 sets, daily range): BP systolic 128–146; BP diastolic 53–66
[~2019-05-15] VITALS: Ht 162.6 cm; Wt 65.8 kg
[2019-05-15] MEDS ORDERED: LIDOCAINE PF 1% 2 ML AMP IJ ONE (07:54)
[2019-05-15] MEDS ORDERED: LIDOCAINE PF 2% 5 ML (XYLOCAINE) VIAL INJ ONE (07:54)
[2019-05-15] MEDS ORDERED: LACTATED RINGERS 1,000 ML IV ONE (08:38)
[2019-05-15] MEDS ORDERED: LACTATED RINGERS 1,000 ML IV STA (09:06)
[2019-05-15] MEDS ORDERED: GLYCOPYRROLATE 0.2 MG/ML (ROBINUL) 2 ML VIAL ONE (10:01)
[2019-05-15] MEDS ORDERED: proPOfol 200 MG/20 ML (DIPRIVAN) VIAL IV ONE (10:01)
[2019-05-15] MEDS ORDERED: fentaNYL INJECTION 100 MCG/2 ML AMP ONE (10:01)
[2019-05-15] MEDS ORDERED: LIDOCAINE PF 2% 5 ML (XYLOCAINE) VIAL ONE (10:02)
[2019-05-15] MEDS ORDERED: ROCURONIUM 10 MG/ML 5 ML SYRINGE IV ONE (10:02)
[2019-05-15] MEDS ORDERED: NEOSTIGMINE 3 MG/3 ML VIAL ONE (10:02)
[2019-05-15] MEDS ORDERED: ONDANSETRON 4 MG/2 ML (SDV) Z0FRAN ONE (10:02)
[2019-05-15] MEDS ORDERED: SEVOFLURANE (ULTANE) 15 ML INHAL SOLN ONE (10:02)
--- NOTE | 2019-05-15 11:08 | Pulmonary Procedures ---
Pulmonary Procedures Date of Procedure Date of Service: May 15, 2019 Bronch Bronchoscopy with Fluoroscopy Bilateral bronchial washes, mainstem gisella brush x 2, RML BAL, using fleuroscopy RML transbronchial bushes, and transbronchial forcep bx obtained. EBUS was used to US the mediastinum however no enlarged lymph nodes were seen to bx. Preop DX: Lung mass PostOP DX: same -- No endobronchial lesions noted Complications: None Pt was sedated per anesthesia. Bronchoscopy was advanced through the ET tube and an anatomical undertaken down to the segmental bronchi bilaterally. No endobronchial lesions noted. Bronchoscopy with Fluoroscopy Bilateral bronchial washes, mainstem gisella brush x 2, RML BAL, using fleuroscopy RML transbronchial bushes, and transbronchial forcep bx obtained. EBUS was used to US the mediastinum however no enlarged lymph nodes were seen to bx. . Pt tolerated procedure well. No complications noted. CHELI CASE DO May 15, 2019 11:08
[2019-05-15] MEDS ORDERED: ONDANSETRON 4 MG/2 ML (SDV) Z0FRAN IVP PRN (11:15)
[2019-05-15] MEDS ORDERED: morphine INJ 10 MG/ML 1ML (SYR OR VIAL) IVP ONE (11:15)
--- NOTE | 2019-05-15 11:26 | Diagnostic Imaging Report ---
INDICATION: Right lung mass. Patient status post bronchoscopy. Time of exam: 11:10 AM Correlation is made with prior study of 04/23/2019. Right-sided mass is again noted. No pneumothorax is seen status post bronchoscopy. There is no effusion. IMPRESSION: No evidence of pneumothorax. Dictated by: Dictated on workstation # [id number]
--- NOTE | 2019-05-15 11:35 | Diagnostic Imaging Report ---
Indication: Fluoroscopy during bronchoscopy. Fluoroscopy was provided for Dr. Knapp during bronchoscopy. 55 seconds of fluoroscopy was utilized. Impression: Fluoroscopy during bronchoscopy. Dictated by: Dictated on workstation # [id number]
--- NOTE | 2019-05-15 15:28 | Anesthesia-General Post-Op ---
General Patient Condition Mental Status/LOC: Same as Preop Cardiovascular: Satisfactory Nausea/Vomiting: Absent Respiratory: Satisfactory Pain: Controlled Complications: Absent Post Op Complications Complications None Follow Up Care/Instructions Patient Instructions None needed. Anesthesia/Patient Condition Patient Condition Patient is doing well, no complaints, stable vital signs, no apparent adverse anesthesia problems. No complications reported per nursing. CELIO LR CRNA May 15, 2019 15:28
== END 2019-05-15 12:56 | disposition home or self-care (01) ==
LOC: ENDO 07:53
PROVIDERS: ATTEND Internal Medicine Critical Care Medicine
DX: C34.2 Malignant neoplasm of middle lobe, bronchus or lung (principal); R06.02 Shortness of breath; Z88.5 Allergy status to narcotic agent; Z88.1 Allergy status to other antibiotic agents; Z88.2 Allergy status to sulfonamides; Z79.899 Other long term (current) drug therapy; Z79.4 Long term (current) use of insulin; Z79.82 Long term (current) use of aspirin; Z87.891 Personal history of nicotine dependence
CPT/HCPCS: 71045; 82962; 87015; 87070; 87101; 87116; 87205; 87206

== ENCOUNTER 2019-08-25 12:04 | Emergency (ER) | payer MEDICARE, OTHER ==
[~2019-08-25] VITALS: Ht 160 cm; Wt 54.5 kg
[2019-08-25] MEDS ORDERED: NS IV 1000 ML 1,000 ML IV SCH ×2 (12:20→13:17)
[2019-08-25 13:01] LABS: BASOPHILS % (AUTO) 0 % (0-10); EOSINOPHILS # (AUTO) 0.2 10^3/uL (0.0-0.3); EOSINOPHILS % (AUTO) 2 % (0-10); HEMATOCRIT 39 % (35-52); HEMOGLOBIN 11.6 G/DL (11.5-16.0); LYMPHOCYTES # (AUTO) 0.5 X 10^3 (1.0-4.0); LYMPHOCYTES % (AUTO) 7 % (12-44); MEAN CORPUSCULAR HEMOGLOBIN 27 PG (25-34); MEAN CORPUSCULAR HGB CONC 30 G/DL (32-36); MEAN CORPUSCULAR VOLUME 89 FL (80-99); MEAN PLATELET VOLUME 8.9 FL (7.4-10.4); MONOCYTES # (AUTO) 0.4 X 10^3 (0.0-1.0); MONOCYTES % (AUTO) 6 % (0-12); NEUTROPHILS % (AUTO) 84 % (42-75); PLATELET COUNT 302 10^3/uL (130-400); RED CELL DISTRIBUTION WIDTH 17.4 % (10.0-14.5); WHITE BLOOD COUNT 7.1 10^3/uL (4.3-11.0)
--- NOTE | 2019-08-25 13:06 | ED GU-Female ---
General Chief Complaint: - Urinary Stated Complaint: BURNING WITH URINATION/SHAKY Nursing Triage Note: ARRIVED TO TRIAGE WITH COMPLAINTS OF BURNING WITH URINATION, WEAKNESS, AND DIZZINESS. STATES SHE JUST FINISHED HER 2 WEEKS OF CHEMO FOR LUNG CA. Nursing Sepsis Screen: No Definite Risk History of Present Illness Date Seen by Provider: Aug 25, 2019 Time Seen by Provider: 12:40 Initial Comments 84 Year old Female presents for weakness and UTI symptoms. She is finishing 2 weeks of radiation for lung cancer, she has not taken Chemo or surgery for her lung mass. She did take Tylenol 650 mg 2 hours [employer]. She has chronic UTIs and thought the radiation was causing her symptoms. Timing/Duration: week, getting worse Severity/Quality: mild Location: unknown Radiation: RLQ, LLQ Prior Genitourinary Problems: similar symptoms Modifying Factors: Improves With Analgesics, Improves With Lying down, Improves With Resting Associated Symptoms: abdominal pain; No diaphoresis; dysuria; No fever/chills, No loss of bladder control, No lower back pain, No mass, No nausea/vomiting, No nocturia; polyuria; No swelling, No syncope; urinary frequency Allergies and Home Medications Allergies Coded Allergies: metronidazole (Verified Allergy, Intermediate, hives, 03/17/17) Sulfa (Sulfonamide Antibiotics) (Verified Allergy, Unknown, 03/20/17) cephalexin (Verified Allergy, Unknown, 01/17/18) ciprofloxacin (Verified Allergy, Unknown, ITCHING, 03/17/17) codeine (Verified Allergy, Unknown, 01/17/18) metoprolol (Verified Allergy, Unknown, 01/17/18) nitrofurantoin (Verified Allergy, Unknown, 01/17/18) Home Medications Acetaminophen 500 Mg Tablet, 1,000 MG PO Q6H PRN for PAIN-MILD, (Reported) Atorvastatin Calcium 40 Mg Tablet, 40 MG PO DAILY, (Reported) Cholecalciferol (Vitamin D3) 2,000 Unit Capsule, 2,000 UNIT PO BID, (Reported) Cranberry Extract 500 Mg Capsule, 500 MG PO BID, (Reported) Diphenhydramine HCl 25 Mg Capsule, 25 MG PO HS, (Reported) Docusate Sodium 100 Mg Capsule, 100 MG PO PRN PRN for CONSTIPATION-1ST LINE, (Reported) Doxycycline Hyclate 100 Mg Tablet, 100 MG PO BID Prescribed by: GRIFFIN FAYE on 08/25/19 1555 Hydrocortisone Acetate 25 Mg Supp.rect, 25 MG RC BID PRN for CONSTIPATION-3RD LINE, (Reported) Insulin Lispro 100 Unit/1 Ml Vial, 5 UNIT SQ ACHS, (Reported) Lactobacillus Acidophilus 1 Each Capsule, 1 EACH PO BID, (Reported) Melatonin 10 Mg Capsule, 10 MG PO HS, (Reported) Pantoprazole Sodium 40 Mg Tablet.dr, 40 MG PO DAILY, (Reported) Polyethylene Glycol 3350 17 Gm Powd.pack, 17 GM PO PRN, (Reported) Pyridoxine HCl 100 Mg Tablet, 100 MG PO DAILY, (Reported) Temazepam 30 Mg Capsule, 30 MG PO HS, (Reported) Tramadol HCl 50 Mg Tablet, 50 MG PO Q6H PRN for PAIN-MODERATE, (Reported) Patient Home Medication List Home Medication List Reviewed: Yes Review of Systems Review of Systems Constitutional: no symptoms reported, see HPI; No fever; malaise, weakness Genitourinary: see HPI, dysuria, frequency; denies flank pain, denies hematuria, denies incontinence, denies urgency All Other Systemes Reviewed Negative Unless Noted: Yes Past Lkqrjfy-Xmdrbt-Vhcpnu Hx Past Med/Social Hx: Reviewed Nursing Past Med/Soc Hx Patient Social History Type Used: Cigarettes Former Smoker, Quit: May 01, 1998 2nd Hand Smoke Exposure: No Recent Foreign Travel: No Contact w/Someone Who Travel: No Recent Infectious Disease Expo: No Recent Hopitalizations: No Immunizations Up To Date Tetanus Booster (TDap): Unknown PED Vaccines UTD: No Date of Pneumonia Vaccine: May 17, 2016 Date of Influenza Vaccine: Sep 29, 2017 Seasonal Allergies Seasonal Allergies: No Past Medical History Surgeries: Yes Appendectomy, Bladder Surgery, Cardiac, Coronary Stent, Gallbladder, Hys terectomy, Vascular Surgery Respiratory: No Pneumonia Currently Using CPAP: No Currently Using BIPAP: No Cardiac: Yes (STENTS, 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) Coronary Artery Disease, High Cholesterol, Hypertension, Peripheral Vascular Neurological: No Reproductive Disorders: Yes Female Reproductive Disorders: Denies Sexually Transmitted Disease: No HIV/AIDS: No Genitourinary: Yes (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 0.0oz. 65.500161my; 21.00 BMI Method:Stated General Appearance: WD/WN, no apparent distress HEENT: PERRL/EOMI, normal ENT inspection, TMs normal, pharynx normal, other (oromucosa pink and moist) Neck: non-tender, full range of motion, supple, normal inspection Cardiovascular: normal peripheral pulses, regular rate, rhythm Respiratory: chest non-tender, lungs clear, normal breath sounds Gastrointestinal: normal bowel sounds, soft; No distended, No guarding, No rebound; tenderness (bilateral lower quadrants); No hernia, No mass Neurologic/Psychiatric: no motor/sensory deficits, alert, normal mood/affect, oriented x 3 Skin: normal color, warm/dry; No cyanosis, No diaphoresis, No rash Lymphatic: no adenopathy Focused Exam Lactate Level 08/25/19 12:54: Lactic Acid Level 3.64*H 08/25/19 14:55: Lactic Acid Level 2.18*H Lactic Acid Level Progress/Results/Core Measures Suspected Sepsis Recent Fever Within 48 Hours: No Infection Criteria Present: Suspected New Infection New/Unexplained Altered Menta: No Sepsis Screen: No Definite Risk Within 3hrs of presentation: Admin fluids, Blood cultures prior to ABX's, Focus exam, Lactate level SIRS Temperature: Pulse: 118 Respiratory Rate: 16 Laboratory Tests 08/25/19 12:26: White Blood Count 7.1 Blood Pressure 149 /86 Mean: 107 08/25/19 12:54: Lactic Acid Level 3.64*H 08/25/19 14:55: Lactic Acid Level 2.18*H Laboratory Tests 08/25/19 12:26: Creatinine 1.05, Platelet Count 302, Total Bilirubin 0.3 Results/Orders Lab Results Laboratory Tests Test 08/25/19 12:26 08/25/19 12:54 08/25/19 13:29 08/25/19 14:55 Range/Units White Blood Count 7.1 4.3-11.0 10^3/uL Red Blood Count 4.35 4.35-5.85 10^6/uL Hemoglobin 11.6 11.5-16.0 G/DL Hematocrit 39 35-52 % Mean Corpuscular Volume 89 80-99 FL Mean Corpuscular Hemoglobin 27 25-34 PG Mean Corpuscular Hemoglobin Concent 30 L 32-36 G/DL Red Cell Distribution Width 17.4 H 10.0-14.5 % Platelet Count 302 130-400 10^3/uL Mean Platelet Volume 8.9 7.4-10.4 FL Neutrophils (%) (Auto) 84 H 42-75 % Lymphocytes (%) (Auto) 7 L 12-44 % Monocytes (%) (Auto) 6 0-12 % Eosinophils (%) (Auto) 2 0-10 % Basophils (%) (Auto) 0 0-10 % Neutrophils # (Auto) 6.0 1.8-7.8 X 10^3 Lymphocytes # (Auto) 0.5 L 1.0-4.0 X 10^3 Monocytes # (Auto) 0.4 0.0-1.0 X 10^3 Eosinophils # (Auto) 0.2 0.0-0.3 10^3/uL Basophils # (Auto) 0.0 0.0-0.1 10^3/uL Neutrophils % (Manual) 82 % Lymphocytes % (Manual) 4 % Monocytes % (Manual) 8 % Band Neutrophils 6 % Blood Morphology Comment NORMAL Sodium Level 138 135-145 MMOL/L Potassium Level 4.1 3.6-5.0 MMOL/L Chloride Level 102 98-107 MMOL/L Carbon Dioxide Level 18 L 21-32 MMOL/L Anion Gap 18 H 5-14 MMOL/L Blood Urea Nitrogen 13 7-18 MG/DL Creatinine 1.05 0.60-1.30 MG/DL Estimat Glomerular Filtration Rate 50 BUN/Creatinine Ratio 12 Glucose Level 317 H 70-105 MG/DL Calcium Level 9.8 8.5-10.1 MG/DL Corrected Calcium 9.8 8.5-10.1 MG/DL Total Bilirubin 0.3 0.1-1.0 MG/DL Aspartate Amino Transf (AST/SGOT) 25 5-34 U/L Alanine Aminotransferase (ALT/SGPT) 19 0-55 U/L Alkaline Phosphatase 111 40-136 U/L Total Protein 7.2 6.4-8.2 GM/DL Albumin 4.0 3.2-4.5 GM/DL Lactic Acid Level 3.64 *H 2.18 *H 0.50-2.00 MMOL/L Urine Color Y Urine Clarity SL CLOUDY Urine pH 5 5-9 Urine Specific [place] 1.020 1.016-1.022 Urine Protein 2+ H NEGATIVE Urine Glucose (UA) 4+ H NEGATIVE Urine Ketones NEGATIVE NEGATIVE Urine Nitrite POSITIVE H NEGATIVE Urine Bilirubin NEGATIVE NEGATIVE Urine Urobilinogen NORMAL NORMAL MG/DL Urine Leukocyte Esterase 3+ H NEGATIVE Urine RBC (Auto) 2+ H NEGATIVE Urine RBC NONE /HPF Urine WBC TNTC H /HPF Urine Squamous Epithelial Cells RARE /HPF Urine Crystals NONE /LPF Urine Bacteria LARGE H /HPF Urine Casts NONE /LPF Urine Mucus SMALL H /LPF Urine Culture Indicated YES My Orders Orders - GRIFFIN FAYE Ua Culture If Indicated (08/25/19 12:05) Cbc With Automated Diff (08/25/19 12:20) Comprehensive Metabolic Panel (08/25/19 12:20) Ed Iv/Invasive Line Start (08/25/19 12:20) Ns Iv 1000 Ml (Sodium Chloride 0.9%) (08/25/19 12:20) Blood Culture (08/25/19 12:49) Lactic Acid Analyzer (08/25/19 12:49) Manual Differential (08/25/19 12:26) Ed Iv/Invasive Line Start (08/25/19 13:17) Ns Iv 1000 Ml (Sodium Chloride 0.9%) (08/25/19 13:17) Urine Culture (08/25/19 13:29) Doxycycline Hyclate Tablet (Vibramycin T (08/25/19 15:55) Vital Signs/I&O 08/25/19 08/25/19 12:15 16:10 Temp 36.9 36.9 Pulse 118 87 Resp 16 16 B/P (MAP) 149/86 (107) 150/74 (107) Pulse Ox 95 95 O2 Delivery Room Air Room Air Capillary Refill : Less Than 3 Seconds Blood Pressure Mean: 107 Progress Note : Time: 12:40 Progress Note Patient seen and evaluated. IV fluids normal saline 1 L, check labs and UA, will continue to monitor heart rate. 1315 UTI noted on UA. Will give second liter of NS per IV. HR 80-90. 1400 Patient up to bathroom, no weakness ambulating. Continues to remain afebrile. 1415 Will give Doxycycline IV. Taking Ice chips and water 1600 Nurse Reports she didn't see order for Doxy, patient requesting discharge, as she is feeling better. Will give Doxy PO. Discharge instructions and return precautions reviewed with the patient. All questions answered Departure Impression Primary Impression: Urinary tract infection Qualified Codes: N30.01 - Acute cystitis with hematuria Disposition: HOME, SELF-CARE Condition: Against Medical Advice Departure-Patient Inst. Decision time for Depature: 15:00 Referrals: ALLISON GLORIA MD (PCP/Family) Primary Care Physician Patient Instructions: Urinary Tract Infection, Adult (DC) Add. Discharge Instructions: Increase water intake, 16 ounces every 2 hours while awake. Eat 1 cup of yogurt daily. Follow-up with Dr. Gloria in 2-3 days, sooner if symptoms are worsening. May take ibuprofen 600 mg alternating with Tylenol 650 mg every 4 hours for pain or fever. Take antibiotics as prescribed. Use your cane for ambulation until your not feeling weak or fatigued. Return to the emergency department for new, urgent health care needs. All discharge instructions reviewed with patient and/or family. Voiced understanding. Scripts Doxycycline Hyclate (Doxycycline Hyclate) 100 Mg Tablet 100 MG PO BID, #20 TAB 0 Refills Prov: GRIFFIN FAYE 08/25/19 Copy Copies To 1: ALLISON GLORIA MD, AMY ARNP Aug 25, 2019 13:06
[2019-08-25 13:19] LABS: BILIRUBIN,TOTAL 0.3 MG/DL (0.1-1.0); CALCIUM 9.8 MG/DL (8.5-10.1); CREATININE SERUM 1.05 MG/DL (0.60-1.30); POTASSIUM 4.1 MMOL/L (3.6-5.0); TOTAL PROTEIN 7.2 GM/DL (6.4-8.2)
[2019-08-25 13:24] LABS: BAND NEUTROPHILS 6 %; LYMPHOCYTES % (MANUAL) 4 %; MONOCYTES % (MANUAL) 8 %; NEUTROPHILS % (MANUAL) 82 %; RBC MORPH NORMAL
[2019-08-25 14:00] LABS: BILIRUBIN,URINE NEGATIVE (NEGATIVE); GLUCOSE, URINE (UA) 4+ (NEGATIVE); KETONES,URINE NEGATIVE (NEGATIVE); LEUKOCYTE ESTERASE ,URINE 3+ (NEGATIVE); NITRITE,URINE POSITIVE (NEGATIVE); PH,URINE 5 (5-9); PROTEIN,URINE 2+ (NEGATIVE)
[2019-08-25 14:04] LABS: BACTERIA,URINE LARGE /HPF; CLARITY,URINE SL CLOUDY; COLOR,URINE Y; WBC,URINE TNTC /HPF
[2019-08-25 14:05] LABS: SQUAMOUS EPITHELIAL CELL,UR RARE /HPF
[2019-08-25] MEDS ORDERED: DOXYCYCLINE INJECTION 100 MG in NS (IVPB) 100 ML IV ONE (14:45)
[2019-08-25] MEDS ORDERED: DOXYCYCLINE 100 MG (VIBRAMYCIN) TABLET PO STA (15:55)
[2019-08-25] MEDS ORDERED: DOXY100T2 PO (15:55)
[2019-08-25 16:10] VITALS: BP 150/74
== END 2019-08-25 16:10 | disposition home or self-care (01) ==
LOC: EDUNIT# 12:04 → ER 12:05
DX: N39.0 Urinary tract infection, site not specified (principal); C34.90 Malignant neoplasm of unspecified part of unspecified bronchus or lung; C79.9 Secondary malignant neoplasm of unspecified site; I10 Essential (primary) hypertension; E11.9 Type 2 diabetes mellitus without complications; F32.9 Major depressive disorder, single episode, unspecified; D64.9 Anemia, unspecified; E78.00 Pure hypercholesterolemia, unspecified; I25.10 Atherosclerotic heart disease of native coronary artery without angina pectoris; Z95.5 Presence of coronary angioplasty implant and graft; Z90.710 Acquired absence of both cervix and uterus; Z88.2 Allergy status to sulfonamides; Z88.1 Allergy status to other antibiotic agents; Z88.5 Allergy status to narcotic agent; Z88.8 Allergy status to other drugs, medicaments and biological substances; Z79.4 Long term (current) use of insulin; Z87.891 Personal history of nicotine dependence; Z90.49 Acquired absence of other specified parts of digestive tract; Z82.49 Family history of ischemic heart disease and other diseases of the circulatory system; Z85.850 Personal history of malignant neoplasm of thyroid; Z85.818 Personal history of malignant neoplasm of other sites of lip, oral cavity, and pharynx
CPT/HCPCS: 36415; 80053; 81000; 83605; 85007; 85027; 87040; 87077; 87088; 87186; 96360

== ENCOUNTER → 2019-08-29 | Outpatient (RCR) | payer MEDICARE, OTHER ==
[2019-05-31 10:40] LABS: BASOPHILS % (AUTO) 0 % (0-10); EOSINOPHILS # (AUTO) 0.3 10^3/uL (0.0-0.3); EOSINOPHILS % (AUTO) 2 % (0-10); HEMATOCRIT 38 % (35-52); HEMOGLOBIN 11.7 G/DL (11.5-16.0); LYMPHOCYTES # (AUTO) 1.3 X 10^3 (1.0-4.0); LYMPHOCYTES % (AUTO) 12 % (12-44); MEAN CORPUSCULAR HEMOGLOBIN 27 PG (25-34); MEAN CORPUSCULAR HGB CONC 31 G/DL (32-36); MEAN CORPUSCULAR VOLUME 87 FL (80-99); MEAN PLATELET VOLUME 8.9 FL (7.4-10.4); MONOCYTES # (AUTO) 0.6 X 10^3 (0.0-1.0); MONOCYTES % (AUTO) 6 % (0-12); NEUTROPHILS # (AUTO) 8.9 X 10^3 (1.8-7.8); NEUTROPHILS % (AUTO) 80 % (42-75); PLATELET COUNT 340 10^3/uL (130-400); RED CELL DISTRIBUTION WIDTH 14.7 % (10.0-14.5)
[2019-05-31 11:00] LABS: ALBUMIN 4.1 GM/DL (3.2-4.5); BILIRUBIN,TOTAL 0.3 MG/DL (0.1-1.0); CALCIUM 10.6 MG/DL (8.5-10.1); CREATININE SERUM 0.92 MG/DL (0.60-1.30); POTASSIUM 4.1 MMOL/L (3.6-5.0); TOTAL PROTEIN 7.4 GM/DL (6.4-8.2)
[2019-07-23 15:45] LABS: BASOPHILS % (AUTO) 0 % (0-10); EOSINOPHILS # (AUTO) 0.2 10^3/uL (0.0-0.3); EOSINOPHILS % (AUTO) 2 % (0-10); HEMATOCRIT 35 % (35-52); HEMOGLOBIN 10.6 G/DL (11.5-16.0); LYMPHOCYTES # (AUTO) 0.8 X 10^3 (1.0-4.0); LYMPHOCYTES % (AUTO) 8 % (12-44); MEAN CORPUSCULAR HGB CONC 30 G/DL (32-36); MEAN CORPUSCULAR VOLUME 84 FL (80-99); MEAN PLATELET VOLUME 8.4 FL (7.4-10.4); MONOCYTES # (AUTO) 0.6 X 10^3 (0.0-1.0); MONOCYTES % (AUTO) 7 % (0-12); NEUTROPHILS # (AUTO) 7.8 X 10^3 (1.8-7.8); NEUTROPHILS % (AUTO) 83 % (42-75); PLATELET COUNT 444 10^3/uL (130-400); RED CELL DISTRIBUTION WIDTH 14.8 % (10.0-14.5); WHITE BLOOD COUNT 9.3 10^3/uL (4.3-11.0)
[2019-07-23 15:46] LABS: MEAN CORPUSCULAR HEMOGLOBIN 25 PG (25-34)
[2019-07-23 16:02] LABS: ALANINE AMINOTRANSFERASE 12 U/L (0-55); ALBUMIN 3.9 GM/DL (3.2-4.5); ALKALINE PHOSPHATASE 124 U/L (40-136); BILIRUBIN,TOTAL 0.3 MG/DL (0.1-1.0); BUN/CREATININE RATIO 19; CALCIUM 10.5 MG/DL (8.5-10.1); CARBON DIOXIDE 26 MMOL/L (21-32); CHLORIDE 99 MMOL/L (98-107); CREATININE SERUM 0.88 MG/DL (0.60-1.30); GFR ESTIMATED > 60; GLUCOSE 140 MG/DL (70-105); POTASSIUM 4.3 MMOL/L (3.6-5.0); SODIUM 136 MMOL/L (135-145); TOTAL PROTEIN 7.8 GM/DL (6.4-8.2)
[2019-08-07 15:03] LABS: BASOPHILS % (AUTO) 0 % (0-10); EOSINOPHILS # (AUTO) 0.2 10^3/uL (0.0-0.3); EOSINOPHILS % (AUTO) 2 % (0-10); HEMATOCRIT 35 % (35-52); HEMOGLOBIN 10.6 G/DL (11.5-16.0); LYMPHOCYTES # (AUTO) 0.6 X 10^3 (1.0-4.0); LYMPHOCYTES % (AUTO) 7 % (12-44); MEAN CORPUSCULAR HEMOGLOBIN 26 PG (25-34); MEAN CORPUSCULAR HGB CONC 31 G/DL (32-36); MEAN CORPUSCULAR VOLUME 87 FL (80-99); MEAN PLATELET VOLUME 8.3 FL (7.4-10.4); MONOCYTES # (AUTO) 0.5 X 10^3 (0.0-1.0); MONOCYTES % (AUTO) 5 % (0-12); NEUTROPHILS % (AUTO) 86 % (42-75); PLATELET COUNT 284 10^3/uL (130-400); RED CELL DISTRIBUTION WIDTH 16.5 % (10.0-14.5); WHITE BLOOD COUNT 9.2 10^3/uL (4.3-11.0)
[2019-08-07 15:21] LABS: ALANINE AMINOTRANSFERASE 18 U/L (0-55); ALBUMIN 3.8 GM/DL (3.2-4.5); ALKALINE PHOSPHATASE 108 U/L (40-136); BILIRUBIN,TOTAL 0.2 MG/DL (0.1-1.0); BUN/CREATININE RATIO 19; CALCIUM 10.2 MG/DL (8.5-10.1); CARBON DIOXIDE 25 MMOL/L (21-32); CHLORIDE 101 MMOL/L (98-107); CREATININE SERUM 0.81 MG/DL (0.60-1.30); GFR ESTIMATED > 60; GLUCOSE 142 MG/DL (70-105); POTASSIUM 4.2 MMOL/L (3.6-5.0); SODIUM 138 MMOL/L (135-145)
[2019-08-14 14:27] LABS: BASOPHILS % (AUTO) 0 % (0-10); EOSINOPHILS # (AUTO) 0.2 10^3/uL (0.0-0.3); EOSINOPHILS % (AUTO) 3 % (0-10); HEMATOCRIT 36 % (35-52); HEMOGLOBIN 10.9 G/DL (11.5-16.0); LYMPHOCYTES # (AUTO) 0.5 X 10^3 (1.0-4.0); LYMPHOCYTES % (AUTO) 6 % (12-44); MEAN CORPUSCULAR HEMOGLOBIN 27 PG (25-34); MEAN CORPUSCULAR HGB CONC 31 G/DL (32-36); MEAN CORPUSCULAR VOLUME 86 FL (80-99); MEAN PLATELET VOLUME 8.4 FL (7.4-10.4); MONOCYTES # (AUTO) 0.5 X 10^3 (0.0-1.0); MONOCYTES % (AUTO) 6 % (0-12); NEUTROPHILS # (AUTO) 7.2 X 10^3 (1.8-7.8); NEUTROPHILS % (AUTO) 85 % (42-75); PLATELET COUNT 268 10^3/uL (130-400); RED CELL DISTRIBUTION WIDTH 17.5 % (10.0-14.5); WHITE BLOOD COUNT 8.5 10^3/uL (4.3-11.0)
[2019-08-14 14:54] LABS: ALANINE AMINOTRANSFERASE 25 U/L (0-55); ALBUMIN 3.7 GM/DL (3.2-4.5); ALKALINE PHOSPHATASE 105 U/L (40-136); BILIRUBIN,TOTAL 0.2 MG/DL (0.1-1.0); BUN/CREATININE RATIO 20; CALCIUM 9.3 MG/DL (8.5-10.1); CARBON DIOXIDE 22 MMOL/L (21-32); CHLORIDE 105 MMOL/L (98-107); CREATININE SERUM 0.82 MG/DL (0.60-1.30); GFR ESTIMATED > 60; GLUCOSE 251 MG/DL (70-105); POTASSIUM 4.2 MMOL/L (3.6-5.0); SODIUM 138 MMOL/L (135-145); TOTAL PROTEIN 6.8 GM/DL (6.4-8.2)
[~2019-08-29] MED LIST changes: +DOXY100T2 PO
[2019-08-29 15:10] LABS: BASOPHILS % (AUTO) 0 % (0-10); EOSINOPHILS # (AUTO) 0.2 10^3/uL (0.0-0.3); EOSINOPHILS % (AUTO) 3 % (0-10); HEMATOCRIT 36 % (35-52); HEMOGLOBIN 11.1 G/DL (11.5-16.0); LYMPHOCYTES # (AUTO) 0.7 X 10^3 (1.0-4.0); LYMPHOCYTES % (AUTO) 9 % (12-44); MEAN CORPUSCULAR HEMOGLOBIN 27 PG (25-34); MEAN CORPUSCULAR HGB CONC 31 G/DL (32-36); MEAN CORPUSCULAR VOLUME 87 FL (80-99); MEAN PLATELET VOLUME 8.3 FL (7.4-10.4); MONOCYTES # (AUTO) 0.5 X 10^3 (0.0-1.0); MONOCYTES % (AUTO) 7 % (0-12); NEUTROPHILS # (AUTO) 6.1 X 10^3 (1.8-7.8); NEUTROPHILS % (AUTO) 81 % (42-75); PLATELET COUNT 298 10^3/uL (130-400); RED CELL DISTRIBUTION WIDTH 17.5 % (10.0-14.5); WHITE BLOOD COUNT 7.5 10^3/uL (4.3-11.0)
[2019-08-29 15:28] LABS: ALANINE AMINOTRANSFERASE 19 U/L (0-55); ALBUMIN 3.8 GM/DL (3.2-4.5); ALKALINE PHOSPHATASE 111 U/L (40-136); BILIRUBIN,TOTAL 0.2 MG/DL (0.1-1.0); BUN/CREATININE RATIO 25; CALCIUM 9.6 MG/DL (8.5-10.1); CARBON DIOXIDE 21 MMOL/L (21-32); CHLORIDE 102 MMOL/L (98-107); CREATININE SERUM 0.81 MG/DL (0.60-1.30); GFR ESTIMATED > 60; GLUCOSE 172 MG/DL (70-105); POTASSIUM 4.2 MMOL/L (3.6-5.0); SODIUM 135 MMOL/L (135-145); TOTAL PROTEIN 7.1 GM/DL (6.4-8.2)
== END | disposition home or self-care (01) ==
LOC: ONC 05-31 08:38
PROVIDERS: ATTEND Internal Medicine Hematology & Oncology
DX: Z51.0 Encounter for antineoplastic radiation therapy (principal); C34.2 Malignant neoplasm of middle lobe, bronchus or lung; Z88.5 Allergy status to narcotic agent; Z88.1 Allergy status to other antibiotic agents; Z88.2 Allergy status to sulfonamides; Z79.899 Other long term (current) drug therapy; Z79.4 Long term (current) use of insulin; Z79.82 Long term (current) use of aspirin; Z87.891 Personal history of nicotine dependence
CPT/HCPCS: 36415; 77290; 77295; 77300; 77307; 77334; 77336; 77417; 80053; 82378; 84443; 85025; 99204; 99213; 99214

== ENCOUNTER → 2019-09-23 | Outpatient (CLI) | payer MEDICARE, OTHER ==
[~2019-09-23] MED LIST changes: +BARIUM SUSPENSION 2.1% (VANILLA SILQ) 450 ML PO ONE; +CATHETER FLUSH 10 ML SYR IV PRN; +HOLD METFORMIN - RECEIVED CONTRAST 20 ML VIAL IV SCH; +IOHEXOL 350 MG/ML 100 ML (OMNIPAQUE 350) VIAL IV ONE; +NS 100 ML (IVPB) BAG IV ONE
--- NOTE | 2019-09-23 13:22 | Diagnostic Imaging Report ---
PROCEDURE: CT chest and abdomen with contrast. TECHNIQUE: Multiple contiguous axial images were obtained through the chest and abdomen after the administration of intravenous contrast. Auto Exposure Controls were utilized during the CT exam to meet ALARA standards for radiation dose reduction. INDICATION: Lung cancer. FINDINGS: The previous CT chest and abdomen exam of 05/07/2019 noted a 4.8 x 3.7 cm mass adjacent to the right hilum. On this exam, the mass has decreased in size and now measures 4.3 x 2.1 cm. On the prior exam, there was a faint 0.5 x 0.7 cm parenchymal density in the left infrahilar region. That finding is again evident and no different. This finding is of uncertain etiology but stable in appearance since the prior exam which suggests that it is not related to an aggressive neoplastic process. The lungs are otherwise generally clear. There is no evidence for failure, pneumonia or for pleural effusion to indicate an acute abnormality. The heart size is stable and within normal limits. Extensive coronary calcifications are again noted. The aorta is not abnormally dilated and there is no sign of a dissection. There is no defect within the pulmonary arteries to indicate a pulmonary embolus. The pulmonary arteries were not well opacified. There is no mediastinal or hilar adenopathy. The low density lesions in the left lobe of the thyroid seen previously are again evident and unchanged. There is no obvious breast mass. The sections through the abdomen again show fatty metamorphosis of the liver. There is no focal mass involving the liver. The spleen, pancreas, adrenals, kidneys, aorta and inferior vena cava show no sign of an acute abnormality. As seen on the prior exam, the gallbladder is surgically absent. The stomach is partially filled with oral contrast and consequently difficult to assess. The reconstructed sagittal images again show compression deformities involving L2 and L3. These seem similar to the prior exam. There is no acute bony abnormality noted. IMPRESSION: 1. The appearance of the chest has improved since the prior exam as the mass in the right hilar region has diminished in size. 2. The faint parenchymal density in the left infrahilar region seen on the prior study is again evident and no different. 3. There is no acute cardiopulmonary abnormality identified. 4. The abdomen is stable compared to the prior exam. There is no evidence for an acute abnormality or for neoplastic disease. Dictated by: Dictated on workstation # [id number]
== END ==
LOC: RAD 11:48
PROVIDERS: ATTEND Internal Medicine Hematology & Oncology
DX: C34.90 Malignant neoplasm of unspecified part of unspecified bronchus or lung (principal)
CPT/HCPCS: 71260; 74160

== ENCOUNTER 2019-10-12 17:57 | Emergency (ER) | payer MEDICARE, OTHER ==
[~2019-10-12] VITALS: Ht 162.5 cm; Wt 61.0 kg
[~2019-10-12 17:57] MED LIST changes: -BARIUM SUSPENSION 2.1% (VANILLA SILQ) 450 ML PO ONE; -CATHETER FLUSH 10 ML SYR IV PRN; -HOLD METFORMIN - RECEIVED CONTRAST 20 ML VIAL IV SCH; -IOHEXOL 350 MG/ML 100 ML (OMNIPAQUE 350) VIAL IV ONE; -NS 100 ML (IVPB) BAG IV ONE
--- NOTE | 2019-10-12 18:44 | Diagnostic Imaging Report ---
HISTORY: Fall, low back pain, history of lung cancer. TECHNIQUE: Three views of the lumbar spine. COMPARISON: CT of the chest and abdomen from 09/23/2019. FINDINGS: There is diffuse osteopenia. There are severe degenerative changes at L3-L4, L4-L5 and L5-S1. There is mild right convex curvature of the lumbar spine. There is compression deformity of L2 at the superior endplate which is stable since the prior exam. No new fractures are identified. There is aortic atherosclerosis. There is transitional anatomy at the lumbosacral junction. IMPRESSION: 1. Advanced degenerative changes in the lower lumbar spine. No acute fracture is seen. There is chronic compression deformity of L2. 2. Transitional anatomy at the lumbosacral junction. Dictated by: Dictated on workstation # [id number]
[2019-10-12] MEDS ORDERED: HYDROcodone/APAP 5 MG/325 MG (LORTAB) TAB PO ONE (18:45)
--- NOTE | 2019-10-12 18:46 | Diagnostic Imaging Report ---
HISTORY: Fall, low back pain and bilateral hip pain. TECHNIQUE: Frontal view of the pelvis. Frontal and lateral views of the bilateral hips COMPARISON: CT from 01/21/2018 FINDINGS: There is diffuse osteopenia. There is transitional anatomy at the lumbosacral junction. The femoral heads are well-seated in the acetabula bilaterally. No acute fracture is seen. IMPRESSION: 1. No acute osseous abnormality is seen in the pelvis or bilateral hips. Dictated by: Dictated on workstation # [id number]
[2019-10-12 18:53] LABS: BILIRUBIN,URINE NEGATIVE (NEGATIVE); CLARITY,URINE TURBID; COLOR,URINE YELLOW; GLUCOSE, URINE (UA) NEGATIVE (NEGATIVE); KETONES,URINE NEGATIVE (NEGATIVE); LEUKOCYTE ESTERASE ,URINE 2+ (NEGATIVE); NITRITE,URINE POSITIVE (NEGATIVE); PROTEIN,URINE TRACE (NEGATIVE)
--- NOTE | 2019-10-12 18:56 | ED Hip Pain/Injury ---
General Chief Complaint: Hip/Pelvic Problems Stated Complaint: FALL - BILAT HIP / LEG PAIN Nursing Triage Note: PT TO ED W/ C/O LOWER BACK ET BILAT HIP PAIN ONSET X2-3 DAYS AGO AFTER FALLING AT HOME. REPORTS SHE TRIPPED OVER HER DOG. ALSO REPORTS SHE IS CURRENTLY BEING TREATED FOR LUNG CA History of Present Illness Date Seen by Provider: Oct 12, 2019 Time Seen by Provider: 18:10 Initial Comments 84-year-old female presents for bilateral hip and low back pain. She reports that 3 days ago she fell, tripping over her dog. She denies any head injury or loss of consciousness at the time of the fall. She ambulates with a cane regularly. She has known degenerative disc disease of the lumbar spine. She denies any previous history of surgeries. She is currently being treated for lung cancer. Timing/Duration: intermittent Severity: mild Location: hip (R), hip (L), other (low back) Method of Injury: fell Associated Symptoms: denies symptoms Allergies and Home Medications Allergies Coded Allergies: metronidazole (Verified Allergy, Intermediate, hives, 03/17/17) Sulfa (Sulfonamide Antibiotics) (Verified Allergy, Unknown, 03/20/17) cephalexin (Verified Allergy, Unknown, 01/17/18) ciprofloxacin (Verified Allergy, Unknown, ITCHING, 03/17/17) codeine (Verified Allergy, Unknown, 01/17/18) metoprolol (Verified Allergy, Unknown, 01/17/18) nitrofurantoin (Verified Allergy, Unknown, 01/17/18) Home Medications Acetaminophen 500 Mg Tablet, 1,000 MG PO Q6H PRN for PAIN-MILD, (Reported) Atorvastatin Calcium 40 Mg Tablet, 40 MG PO DAILY, (Reported) Cholecalciferol (Vitamin D3) 2,000 Unit Capsule, 2,000 UNIT PO BID, (Reported) Cranberry Extract 500 Mg Capsule, 500 MG PO BID, (Reported) Diphenhydramine HCl 25 Mg Capsule, 25 MG PO HS, (Reported) Docusate Sodium 100 Mg Capsule, 100 MG PO PRN PRN for CONSTIPATION-1ST LINE, (Reported) Doxycycline Hyclate 100 Mg Tablet, 100 MG PO BID Prescribed by: GRIFFIN FAYE on 08/25/19 6633 Hydrocortisone Acetate 25 Mg Supp.rect, 25 MG RC BID PRN for CONSTIPATION-3RD LINE, (Reported) Insulin Lispro 100 Unit/1 Ml Vial, 5 UNIT SQ ACHS, (Reported) Lactobacillus Acidophilus 1 Each Capsule, 1 EACH PO BID, (Reported) Melatonin 10 Mg Capsule, 10 MG PO HS, (Reported) Pantoprazole Sodium 40 Mg Tablet.dr, 40 MG PO DAILY, (Reported) Polyethylene Glycol 3350 17 Gm Powd.pack, 17 GM PO PRN, (Reported) Pyridoxine HCl 100 Mg Tablet, 100 MG PO DAILY, (Reported) Temazepam 30 Mg Capsule, 30 MG PO HS, (Reported) Tramadol HCl 50 Mg Tablet, 50 MG PO Q6H PRN for PAIN-MODERATE, (Reported) Patient Home Medication List Home Medication List Reviewed: Yes Review of Systems Constitutional: no symptoms reported, see HPI Musculoskeletal: see HPI, back pain, joint pain (bilateral hips) All Other Systems Reviewed Negative Unless Noted: Yes Past Kcvuzzo-Fwxtry-Zuvyhf Hx Past Med/Social Hx: Reviewed Nursing Past Med/Soc Hx Patient Social History Alcohol Use: Denies Use Recreational Drug Use: No Smoking Status: Never a Smoker Type Used: Cigarettes Former Smoker, Quit: May 01, 1998 2nd Hand Smoke Exposure: No Recent Foreign Travel: No Contact w/Someone Who Travel: No Recent Infectious Disease Expo: No Recent Hopitalizations: No Immunizations Up To Date Tetanus Booster (TDap): Unknown PED Vaccines UTD: No Date of Pneumonia Vaccine: May 17, 2016 Date of Influenza Vaccine: Sep 29, 2017 Seasonal Allergies Seasonal Allergies: No Past Medical History Surgeries: Yes Appendectomy, Bladder Surgery, Cardiac, Coronary Stent, Gallbladder, Hysterectomy, Vascular Surgery Respiratory: No Pneumonia Currently Using CPAP: No Currently Using BIPAP: No Cardiac: Yes (STENTS, 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) Coronary Artery Disease, High Cholesterol, Hypertension, Peripheral Vascular Neurological: No Reproductive Disorders: Yes Female Reproductive Disorders: Denies Sexually Transmitted Disease: No HIV/AIDS: No Genitourinary: Yes (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 0.0oz. 65.882648pp; 23.00 BMI Method:Stated General Appearance: No Apparent Distress, WD/WN Neck: Full Range of Motion, Normal Inspection, Non Tender, Supple Cardiovascular: Regular Rate, Rhythm, No Edema Respiratory: Chest Non Tender, Lungs Clear Gastrointestinal: Normal Bowel Sounds, Non Tender, Soft Back: Decreased Range of Motion (secondary to pain), Muscle Spasm, Vertebral Tenderness Extremity: Normal Capillary Refill, Normal Inspection, Normal Range of Motion, Pelvis Stable, Other (tenderness on the left greater trochanter. Full range of motion bilateral hips.) Neurologic/Psychiatric: Alert, Oriented x3, No Motor/Sensory Deficits, Normal Mood/Affect Skin: Normal Color, Warm/Dry Progress/Results/Core Measures Results/Orders Lab Results Laboratory Tests Test 10/12/19 18:48 Range/Units Urine Color YELLOW Urine Clarity TURBID Urine pH 5.0 5-9 Urine Specific [place] >=1.030 1.016-1.022 Urine Protein TRACE NEGATIVE Urine Glucose (UA) NEGATIVE NEGATIVE Urine Ketones NEGATIVE NEGATIVE Urine Nitrite POSITIVE NEGATIVE Urine Bilirubin NEGATIVE NEGATIVE Urine Urobilinogen 0.2 < = 1.0 MG/DL Urine Leukocyte Esterase 2+ H NEGATIVE Urine RBC (Auto) 1+ H NEGATIVE Urine RBC NONE /HPF Urine WBC TNTC H /HPF Urine Squamous Epithelial Cells NONE /HPF Urine Crystals NONE /LPF Urine Bacteria LARGE H /HPF Urine Casts NONE /LPF Urine Mucus NEGATIVE /LPF Urine Culture Indicated YES My Orders Orders - GRIFFIN FAYE Lumbar Spine - 2-3 Views (10/12/19 18:13) Pelvis/Robin Hips 5> Views (10/12/19 18:13) Hydrocodone/Apap 5/325 Tablet (Lortab 5 (10/12/19 18:45) Amoxicillin/Clavulanate Tablet (Augmenti (10/12/19 19:29) Medications Given in ED Current Medications Medications Dose Ordered Sig/Miri Route Start Time Stop Time Status Last Admin Dose Admin Acetaminophen/ Hydrocodone Bitart 1 tab ONCE ONCE PO 10/12/19 18:45 10/12/19 18:46 DC 10/12/19 19:12 1 TAB Vital Signs/I&O 10/12/19 18:00 Temp 36.4 Pulse 121 Resp 20 B/P (MAP) 120/80 (93) Pulse Ox 97 O2 Delivery Room Air Blood Pressure Mean: 93 POS Departure Impression Primary Impression: UTI (urinary tract infection) Qualified Codes: N30.01 - Acute cystitis with hematuria Additional Impression: Fall Qualified Codes: W19.XXXA - Unspecified fall, initial encounter Disposition: HOME, SELF-CARE Condition: Improved Departure-Patient Inst. Decision time for Depature: 19:30 Referrals: ALLISON GLORIA MD (PCP/Family) Primary Care Physician Patient Instructions: Urinary Tract Infection, Adult (DC), Preventing Falls Add. Discharge Instructions: Take antibiotic as prescribed. Use the hydrocodone one tablet every 6-8 hours as needed for severe pain. Follow-up with your primary care provider if symptoms are not improving or worsen. Use ice to your hips and low back every 2-3 hours as needed for pain. Increase water intake, 16 ounces every 2 hours while awake. Empty your bladder every 2 hours while awake. Return to the emergency department for new, urgent health care problems. All discharge instructions reviewed with patient and/or family. Voiced understanding. Scripts Hydrocodone Bit/Acetaminophen (Hydrocodone/Acetaminophen 5/325mg Tablet) 1 Tab Tab 1 EACH PO Q6-8hours PRN for PAIN-MODERATE MDD 10, #12 TAB 0 Refills Prov: GRIFFIN FAYE 10/12/19 Amoxicillin/Potassium Clav (Augmentin 875-125 Tablet) 1 Each Tablet 1 EACH PO BID, #20 TAB 0 Refills Prov: GRIFFIN FAYE 10/12/19 GRIFFIN FAYE Oct 12, 2019 18:55 POS
[2019-10-12 19:04] LABS: BACTERIA,URINE LARGE /HPF; WBC,URINE TNTC /HPF
[2019-10-12] MEDS ORDERED: AUGMENTIN 875 MG TAB (AMOXICILLIN/CLAVULANATE) PO STA (19:29)
[2019-10-12] MEDS ORDERED: RX-HYDROCODONE/APAP 5/325 MG #4 TAB PK PO PRN (19:30)
[2019-10-12] MEDS ORDERED: AMOX-358 PO (19:34)
[2019-10-12] MEDS ORDERED: ACHD5005 PO (19:35)
[2019-10-12 19:43] VITALS: BP 124/84
== END 2019-10-12 19:43 | disposition home or self-care (01) ==
LOC: EDUNIT# 17:57 → ER 17:59
DX: M25.551 Pain in right hip (principal); M25.552 Pain in left hip; M54.5 Low back pain; N39.0 Urinary tract infection, site not specified; I10 Essential (primary) hypertension; E11.9 Type 2 diabetes mellitus without complications; F32.9 Major depressive disorder, single episode, unspecified; E78.00 Pure hypercholesterolemia, unspecified; I25.10 Atherosclerotic heart disease of native coronary artery without angina pectoris; Z88.2 Allergy status to sulfonamides; Z85.118 Personal history of other malignant neoplasm of bronchus and lung; Z88.1 Allergy status to other antibiotic agents; Z88.5 Allergy status to narcotic agent; Z88.8 Allergy status to other drugs, medicaments and biological substances; Z79.4 Long term (current) use of insulin; Z87.891 Personal history of nicotine dependence; Z90.49 Acquired absence of other specified parts of digestive tract; Z95.5 Presence of coronary angioplasty implant and graft; Z90.710 Acquired absence of both cervix and uterus; Z82.49 Family history of ischemic heart disease and other diseases of the circulatory system; Z80.8 Family history of malignant neoplasm of other organs or systems; W01.0XXA Fall on same level from slipping, tripping and stumbling without subsequent striking against object, initial encounter
CPT/HCPCS: 72100; 73523; 81000; 87077; 87088; 87186

== ENCOUNTER 2019-11-05 15:34 | Emergency (ER) | payer MEDICARE, OTHER ==
[~2019-11-05] VITALS: Ht 162 cm; Wt 63.5 kg
[~2019-11-05 15:34] MED LIST changes: +ACHD5005 PO; +TRM50T PO
[2019-11-05 15:58] VITALS: BP 146/72
--- NOTE | 2019-11-05 17:07 | NUR ---
PT STATES SHE WANTS TO LEAVE AND WILL FOLLOW UP WITH DR MIJARES.
== END 2019-11-05 17:07 | disposition left against medical advice (07) ==
LOC: EDUNIT# 15:34 → ER 15:35
DX: R73.9 Hyperglycemia, unspecified (principal)
CPT/HCPCS: 82962

== ENCOUNTER → 2019-11-06 | Outpatient (CLI) | payer MEDICARE, OTHER ==
[~2019-11-06] MED LIST changes: +GADOBUTROL 7.5 MMOL/7.5 ML (GADAVIST) VIAL IV ONE
--- NOTE | 2019-11-06 11:08 | Diagnostic Imaging Report ---
PROCEDURE: MR imaging of the brain with and without contrast. TECHNIQUE: Multiplanar, multisequence MR imaging of the brain was performed with and without contrast. INDICATION: Lung cancer with nausea and vomiting. FINDINGS: The ventricles and sulci are prominent, consistent with cerebral atrophy. Periventricular and subcortical white matter signal abnormalities are noted, consistent with chronic microvascular ischemia. No diffusion restriction is identified. The normal expected flow-voids within the carotid siphons are seen. No acute intra-axial or extra-axial hemorrhage is detected. No enhancing lesion is identified to suggest metastatic disease. The corpus callosum is unremarkable. The sella and parasellar structures are unremarkable. IMPRESSION: Cerebral atrophy and chronic microvascular ischemia. No acute intracranial process is identified. No finding to suggest intracranial metastatic disease is detected. Dictated by: Dictated on workstation # [id number]
== END ==
LOC: RAD 09:32
PROVIDERS: ATTEND Internal Medicine Hematology & Oncology
DX: C34.01 Malignant neoplasm of right main bronchus (principal); R29.898 Other symptoms and signs involving the musculoskeletal system; R11.2 Nausea with vomiting, unspecified; G31.9 Degenerative disease of nervous system, unspecified
CPT/HCPCS: 70553

== ENCOUNTER 2019-11-11 13:05 | Outpatient (RCR) | payer MEDICARE, OTHER ==
[2019-09-16 15:21] LABS: BASOPHILS % (AUTO) 1 % (0-10); EOSINOPHILS # (AUTO) 0.3 10^3/uL (0.0-0.3); EOSINOPHILS % (AUTO) 5 % (0-10); HEMATOCRIT 34 % (35-52); HEMOGLOBIN 10.9 G/DL (11.5-16.0); LYMPHOCYTES # (AUTO) 0.8 X 10^3 (1.0-4.0); LYMPHOCYTES % (AUTO) 13 % (12-44); MEAN CORPUSCULAR HEMOGLOBIN 27 PG (25-34); MEAN CORPUSCULAR HGB CONC 32 G/DL (32-36); MEAN CORPUSCULAR VOLUME 85 FL (80-99); MEAN PLATELET VOLUME 8.6 FL (7.4-10.4); MONOCYTES # (AUTO) 0.5 X 10^3 (0.0-1.0); MONOCYTES % (AUTO) 7 % (0-12); NEUTROPHILS # (AUTO) 4.7 X 10^3 (1.8-7.8); NEUTROPHILS % (AUTO) 74 % (42-75); PLATELET COUNT 342 10^3/uL (130-400); RED CELL DISTRIBUTION WIDTH 16.1 % (10.0-14.5); WHITE BLOOD COUNT 6.3 10^3/uL (4.3-11.0)
[2019-09-16 15:43] LABS: ALBUMIN 3.9 GM/DL (3.2-4.5); BILIRUBIN,TOTAL 0.3 MG/DL (0.1-1.0); CALCIUM 10.4 MG/DL (8.5-10.1); CREATININE SERUM 0.93 MG/DL (0.60-1.30); POTASSIUM 4.2 MMOL/L (3.6-5.0); TOTAL PROTEIN 6.9 GM/DL (6.4-8.2)
[2019-10-21 14:56] LABS: BASOPHILS % (AUTO) 0 % (0-10); EOSINOPHILS # (AUTO) 0.6 10^3/uL (0.0-0.3); EOSINOPHILS % (AUTO) 6 % (0-10); HEMATOCRIT 32 % (35-52); HEMOGLOBIN 9.9 G/DL (11.5-16.0); LYMPHOCYTES # (AUTO) 0.8 X 10^3 (1.0-4.0); LYMPHOCYTES % (AUTO) 8 % (12-44); MEAN CORPUSCULAR HEMOGLOBIN 27 PG (25-34); MEAN CORPUSCULAR HGB CONC 31 G/DL (32-36); MEAN CORPUSCULAR VOLUME 86 FL (80-99); MEAN PLATELET VOLUME 9.1 FL (7.4-10.4); MONOCYTES # (AUTO) 0.5 X 10^3 (0.0-1.0); MONOCYTES % (AUTO) 6 % (0-12); NEUTROPHILS # (AUTO) 7.4 X 10^3 (1.8-7.8); NEUTROPHILS % (AUTO) 80 % (42-75); PLATELET COUNT 338 10^3/uL (130-400); RED CELL DISTRIBUTION WIDTH 15.1 % (10.0-14.5); WHITE BLOOD COUNT 9.3 10^3/uL (4.3-11.0)
[2019-10-21 15:13] LABS: ALBUMIN 3.7 GM/DL (3.2-4.5); BILIRUBIN,TOTAL 0.2 MG/DL (0.1-1.0); CALCIUM 9.9 MG/DL (8.5-10.1); CREATININE SERUM 0.99 MG/DL (0.60-1.30); POTASSIUM 4.6 MMOL/L (3.6-5.0); TOTAL PROTEIN 6.9 GM/DL (6.4-8.2)
[~2019-11-11 13:05] MED LIST changes: +DIPH25CA48 PO; -DIPH25CA6 PO; -GADOBUTROL 7.5 MMOL/7.5 ML (GADAVIST) VIAL IV ONE; -MELA3TAB PO; +MELA3TAB65 PO; -PYRI100T2 PO; +PYRI100T4 PO
== END 2019-12-15 | disposition home or self-care (01) ==
LOC: ONC 13:05
PROVIDERS: ATTEND Internal Medicine Hematology & Oncology
DX: C34.01 Malignant neoplasm of right main bronchus (principal); K76.0 Fatty (change of) liver, not elsewhere classified; R91.1 Solitary pulmonary nodule; I25.10 Atherosclerotic heart disease of native coronary artery without angina pectoris; E78.5 Hyperlipidemia, unspecified; E11.9 Type 2 diabetes mellitus without complications; Z88.5 Allergy status to narcotic agent; Z88.1 Allergy status to other antibiotic agents; Z88.2 Allergy status to sulfonamides; Z79.899 Other long term (current) drug therapy; Z79.4 Long term (current) use of insulin; Z79.82 Long term (current) use of aspirin; Z87.891 Personal history of nicotine dependence
CPT/HCPCS: 36415; 80053; 84443; 85025; 99213

== ENCOUNTER 2019-12-23 04:07 | Observation (INO) | payer MEDICARE, OTHER ==
[~2019-12-23] VITALS: Ht 162 cm; Wt 60.7 kg
[~2019-12-23 04:07] MED LIST changes: +PYRI100T10 PO; -PYRI100T4 PO
[2019-12-23] MEDS ORDERED: NS IV 1000 ML 1,000 ML IV SCH (04:19)
--- NOTE | 2019-12-23 04:26 | ED Fall/Injury ---
General Chief Complaint: General Problems/Pain Stated Complaint: FALL/WEAK Nursing Triage Note: fell from bed, generalized weakness x2 days Source: patient, EMS Exam Limitations: no limitations History of Present Illness Date Seen by Provider: Dec 23, 2019 Time Seen by Provider: 04:11 Initial Comments Patient presents to ER by EMS from home with chief complaint she's gotten out of bed to go to the bathroom and said her legs or having pain in both of her hips and so she fell. She is having a hard time getting up but EMS is able to easily assist her up and walk to the bathroom and then walker out to the ambulance. Patient is not having any fevers or chills but she does have some mild dysuria. She denies shortness of breath or new cough. She has a history of metastatic lung cancer treated by an oncologist out of [place] who comes to [place]. She denies any pain at this time. She is on blood thinners. She denies loss of consciousness. She said she only laid on the floor for less than half an hour. Sulfa and Keflex causes nausea. Flagyl and Cipro causes itching. Allergies and Home Medications Allergies Coded Allergies: metronidazole (Verified Allergy, Intermediate, hives, 03/17/17) Sulfa (Sulfonamide Antibiotics) (Verified Allergy, Unknown, 03/20/17) cephalexin (Verified Allergy, Unknown, 01/17/18) ciprofloxacin (Verified Allergy, Unknown, ITCHING, 03/17/17) codeine (Verified Allergy, Unknown, 01/17/18) metoprolol (Verified Allergy, Unknown, 01/17/18) nitrofurantoin (Verified Allergy, Unknown, 01/17/18) Home Medications Acetaminophen 500 Mg Tablet, 1,000 MG PO Q6H PRN for PAIN-MILD, (Reported) Amoxicillin/Potassium Clav 1 Each Tablet, 1 EACH PO BID Prescribed by: GRIFFIN FAYE on 10/12/191933 Atorvastatin Calcium 40 Mg Tablet, 40 MG PO DAILY, (Reported) Cholecalciferol (Vitamin D3) 2,000 Unit Capsule, 2,000 UNIT PO BID, (Reported) Cranberry Extract 500 Mg Capsule, 500 MG PO BID, (Reported) Diphenhydramine HCl 25 Mg Capsule, 25 MG PO HS, (Reported) Docusate Sodium 100 Mg Capsule, 100 MG PO PRN PRN for CONSTIPATION-1ST LINE, (Reported) Doxycycline Hyclate 100 Mg Tablet, 100 MG PO BID Prescribed by: GRIFFIN FAYE on 08/25/19 1555 Hydrocodone Bit/Acetaminophen 1 Tab Tab, 1 EACH PO Q6-8hours PRN for PAIN- MODERATE Prescribed by: GRIFFIN FAYE on 10/12/19 1935 Hydrocortisone Acetate 25 Mg Supp.rect, 25 MG RC BID PRN for CONSTIPATION-3RD LINE, (Reported) Insulin Lispro 100 Unit/1 Ml Vial, 5 UNIT SQ ACHS, (Reported) Lactobacillus Acidophilus 1 Each Capsule, 1 EACH PO BID, (Reported) Melatonin 10 Mg Capsule, 10 MG PO HS, (Reported) Pantoprazole Sodium 40 Mg Tablet.dr, 40 MG PO DAILY, (Reported) Polyethylene Glycol 3350 17 Gm Powd.pack, 17 GM PO PRN, (Reported) Pyridoxine HCl 100 Mg Tablet, 100 MG PO DAILY, (Reported) Temazepam 30 Mg Capsule, 30 MG PO HS, (Reported) Tramadol HCl 50 Mg Tablet, 50 MG PO Q6H PRN for PAIN-MODERATE, (Reported) Patient Home Medication List Home Medication List Reviewed: Yes Review of Systems Review of Systems Constitutional: No chills, No diaphoresis Eyes: Denies Blindness, Denies Blurred Vision Ears, Nose, Mouth, Throat: denies ear pain, denies ear discharge Respiratory: cough; No phlegm, No short of breath Cardiovascular: No chest pain, No edema; Hx of Intervention, vascular heart diseas Gastrointestinal: No abdominal pain, No constipation, No nausea Genitourinary: No discharge; dysuria Musculoskeletal: see HPI; No back pain; joint pain (bilateral hips) Skin: No pruritus, No rash Past Bikxrah-Ghcelr-Mlkwqd Hx Patient Social History Alcohol Use: Denies Use Recreational Drug Use: No Smoking Status: Former Smoker Type Used: Cigarettes Former Smoker, Quit: May 01, 1998 2nd Hand Smoke Exposure: No Recent Foreign Travel: No Contact w/Someone Who Travel: No Recent Infectious Disease Expo: No Recent Hopitalizations: No Physical Abuse: No Sexual Abuse: No Mistreated: No Fear: No Immunizations Up To Date Tetanus Booster (TDap): Unknown PED Vaccines UTD: No Date of Pneumonia Vaccine: May 17, 2016 Date of Influenza Vaccine: Sep 29, 2017 Seasonal Allergies Seasonal Allergies: No Past Medical History Surgeries: Yes Appendectomy, Bladder Surgery, Cardiac, Coronary Stent, Gallbladder, Hysterectomy, Vascular Surgery Respiratory: No Pneumonia Currently Using CPAP: No Currently Using BIPAP: No Cardiac: Yes (STENTS, 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) Coronary Artery Disease, High Cholesterol, Hypertension, Peripheral Vascular Neurological: No : No Reproductive Disorders: Yes Female Reproductive Disorders: Denies 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 0.0oz. 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-XII nml as tested, no motor/sensory deficits, alert, normal mood/affect, oriented x 3 Skin: normal color, warm/dry Progress/Results/Core Measures Results/Orders Lab Results Laboratory Tests Test 12/23/19 04:25 12/23/19 04:51 Range/Units White Blood Count 8.2 4.3-11.0 10^3/uL Red Blood Count 4.36 4.35-5.85 10^6/uL Hemoglobin 11.3 L 11.5-16.0 G/DL Hematocrit 36 35-52 % Mean Corpuscular Volume 83 80-99 FL Mean Corpuscular Hemoglobin 26 25-34 PG Mean Corpuscular Hemoglobin Concent 31 L 32-36 G/DL Red Cell Distribution Width 15.7 H 10.0-14.5 % Platelet Count 326 130-400 10^3/uL Mean Platelet Volume 8.3 7.4-10.4 FL Neutrophils (%) (Auto) 77 H 42-75 % Lymphocytes (%) (Auto) 13 12-44 % Monocytes (%) (Auto) 8 0-12 % Eosinophils (%) (Auto) 2 0-10 % Basophils (%) (Auto) 0 0-10 % Neutrophils # (Auto) 6.3 1.8-7.8 X 10^3 Lymphocytes # (Auto) 1.1 1.0-4.0 X 10^3 Monocytes # (Auto) 0.6 0.0-1.0 X 10^3 Eosinophils # (Auto) 0.2 0.0-0.3 10^3/uL Basophils # (Auto) 0.0 0.0-0.1 10^3/uL Sodium Level 139 135-145 MMOL/L Potassium Level 3.7 3.6-5.0 MMOL/L Chloride Level 100 98-107 MMOL/L Carbon Dioxide Level 23 21-32 MMOL/L Anion Gap 16 H 5-14 MMOL/L Blood Urea Nitrogen 15 7-18 MG/DL Creatinine 0.98 0.60-1.30 MG/DL Estimat Glomerular Filtration Rate 54 BUN/Creatinine Ratio 15 Glucose Level 176 H 70-105 MG/DL Calcium Level 10.8 H 8.5-10.1 MG/DL Corrected Calcium 10.7 H 8.5-10.1 MG/DL Total Bilirubin 0.3 0.1-1.0 MG/DL Aspartate Amino Transf (AST/SGOT) 16 5-34 U/L Alanine Aminotransferase (ALT/SGPT) 25 0-55 U/L Alkaline Phosphatase 127 40-136 U/L Total Protein 7.5 6.4-8.2 GM/DL Albumin 4.1 3.2-4.5 GM/DL Urine Color YELLOW Urine Clarity CLEAR Urine pH 7.0 5-9 Urine Specific [place] <=1.005 1.016-1.022 Urine Protein NEGATIVE NEGATIVE Urine Glucose (UA) NEGATIVE NEGATIVE Urine Ketones NEGATIVE NEGATIVE Urine Nitrite NEGATIVE NEGATIVE Urine Bilirubin NEGATIVE NEGATIVE Urine Urobilinogen 0.2 < = 1.0 MG/DL Urine Leukocyte Esterase 3+ H NEGATIVE Urine RBC (Auto) TRACE-I NEGATIVE Urine RBC NONE /HPF Urine WBC >100 H /HPF Urine Squamous Epithelial Cells 2-5 /HPF Urine Crystals NONE /LPF Urine Bacteria LARGE H /HPF Urine Casts NONE /LPF Urine Mucus NEGATIVE /LPF Urine Culture Indicated YES My Orders Orders - ANURAG COVINGTON Ed Iv/Invasive Line Start (12/23/19 04:19) Ns Iv 1000 Ml (Sodium Chloride 0.9%) (12/23/19 04:19) Chest 1 View, Ap/Pa Only (12/23/19 04:19) Pelvis/Robin Hips 5> Views (12/23/19 04:19) Ct Head/Cervical Spine Wo (12/23/19 04:19) Cbc With Automated Diff (12/23/19 04:19) Comprehensive Metabolic Panel (12/23/19 04:19) Ua Culture If Indicated (12/23/19 04:19) Urine Culture (12/23/19 04:51) Ceftriaxone For Iv Use (Rocephin For I (12/23/19 06:15) Vital Signs/I&O 12/23/19 04:10 Temp 36.9 Pulse 98 Resp 23 B/P (MAP) 148/77 (100) Pulse Ox 98 O2 Delivery Room Air Blood Pressure Mean: 100 Progress Progress Note #1: Time: 04:35 Progress Note We will get some x-rays of her hips. She doesn't history of metastatic cancer so pathologic fractures a possibility however she was walking on them for EMS. Chest x-ray looking for pneumonia. Urinalysis she's having some dysuria and some basic labs. CT of the head and spine for possible fracture or intracranial hemorrhage. She doesn't want anything for pain right now. Not having any nausea or fever. Progress Note #2: Time: 05:38 Progress Note Discussed the imaging results with patient and her , Cheikh. Since she has a stated allergy to Keflex that his nausea we will give her some Rocephin and Zofran as necessary. We have offered her outpatient therapy but since she still tachycardic and having a lot of physical debility she would like to try and stay in the hospital first. Plan to consult social and political studies professor about placement as well as physical therapy for an evaluation for potential acute rehabilitation unit versus rehabilitation home. The patient is still tachycardic around 105. Some IV fluids may be beneficial. Diagnostic Imaging Diagonstic Imaging: Xray Plain Films/CT/US/NM/MRI: chest (on the) Comments Stable right lung mass as compared to April 2019. Scarring. Insignificant effusion. Reviewed: Reviewed by Me Diagonstic Imaging: Xray Plain Films/CT/US/NM/MRI: pelvis (bilateral hips), hip Comments Stable, no acute findings as compared to September 2019 pelvis x-ray. Reviewed: Reviewed by Me Diagonstic Imaging: CT (without IV contrast) Plain Films/CT/US/NM/MRI: c-spine, head Comments No acute cranial hemorrhage, mass effect, midline shift or tumor. No calvarial fracture. C-spine without acute fracture or subluxation. Reviewed: Reviewed Night Sammy Study, Reviewed by Ny Departure Communication (Admissions) Time/Spoke to Admitting Phy: 05:59 Discussed case and need for physical therapy evaluate for possible placement for physical debilitation with Dr. Henning and he agrees with [facility]. Impression Primary Impression: Urinary tract infection Qualified Codes: N30.00 - Acute cystitis without hematuria Additional Impressions: Fall Qualified Codes: W19.XXXA - Unspecified fall, initial encounter Bilateral hip pain Physical debility Disposition: ADMITTED INPATIENT Condition: Stable Admissions Decision to Admit Reason: Admit from ER (General) Decision to Admit/Date: Dec 23, 2019 Time/Decision to Admit Time: 05:39 Departure-Patient Inst. Referrals: SUN MIJARES MD (PCP/Family) Primary Care Physician ANURAG COVINGTON Dec 23, 2019 04:26
[2019-12-23 04:38] LABS: BASOPHILS % (AUTO) 0 % (0-10); EOSINOPHILS # (AUTO) 0.2 10^3/uL (0.0-0.3); EOSINOPHILS % (AUTO) 2 % (0-10); HEMATOCRIT 36 % (35-52); HEMOGLOBIN 11.3 G/DL (11.5-16.0); LYMPHOCYTES # (AUTO) 1.1 X 10^3 (1.0-4.0); LYMPHOCYTES % (AUTO) 13 % (12-44); MEAN CORPUSCULAR HEMOGLOBIN 26 PG (25-34); MEAN CORPUSCULAR HGB CONC 31 G/DL (32-36); MEAN CORPUSCULAR VOLUME 83 FL (80-99); MEAN PLATELET VOLUME 8.3 FL (7.4-10.4); MONOCYTES # (AUTO) 0.6 X 10^3 (0.0-1.0); MONOCYTES % (AUTO) 8 % (0-12); NEUTROPHILS # (AUTO) 6.3 X 10^3 (1.8-7.8); NEUTROPHILS % (AUTO) 77 % (42-75); PLATELET COUNT 326 10^3/uL (130-400); RED CELL DISTRIBUTION WIDTH 15.7 % (10.0-14.5); WHITE BLOOD COUNT 8.2 10^3/uL (4.3-11.0)
--- NOTE | 2019-12-23 04:51 | NUR ---
pt up to bsc with stand by assist.
[2019-12-23 04:55] LABS: ALBUMIN 4.1 GM/DL (3.2-4.5); BILIRUBIN,TOTAL 0.3 MG/DL (0.1-1.0); CALCIUM 10.8 MG/DL (8.5-10.1); CREATININE SERUM 0.98 MG/DL (0.60-1.30); POTASSIUM 3.7 MMOL/L (3.6-5.0); TOTAL PROTEIN 7.5 GM/DL (6.4-8.2)
[2019-12-23 04:58] LABS: BILIRUBIN,URINE NEGATIVE (NEGATIVE); CLARITY,URINE CLEAR; COLOR,URINE YELLOW; GLUCOSE, URINE (UA) NEGATIVE (NEGATIVE); KETONES,URINE NEGATIVE (NEGATIVE); LEUKOCYTE ESTERASE ,URINE 3+ (NEGATIVE); NITRITE,URINE NEGATIVE (NEGATIVE); PROTEIN,URINE NEGATIVE (NEGATIVE)
[2019-12-23 05:08] LABS: WBC,URINE >100 /HPF
[2019-12-23 05:09] LABS: BACTERIA,URINE LARGE /HPF
--- NOTE | 2019-12-23 05:32 | Diagnostic Imaging Report ---
INDICATION: Fall, pain COMPARISON: 05/15/2019 FINDINGS: Single frontal radiographic view of the chest was obtained and again demonstrates right hilar mass. It measures approximately 4.3 x 6 cm. Since the previous exam, there has been interval development of asymmetric partial volume loss on the right with elevation of the right hemidiaphragm. Left lung remains relatively clear. There is no large effusion or pneumothorax on either side. Heart size and pulmonary vasculature within normal limits. Osseous structures show no acute abnormalities. IMPRESSION: 1. Redemonstration of right hilar mass with interval development of partial right lung volume loss. Dictated by: Dictated on workstation # [id number]
--- NOTE | 2019-12-23 05:34 | Diagnostic Imaging Report ---
INDICATION: Fall. Hip pain. COMPARISON: None. FINDINGS: AP view of the pelvis and multiple dedicated dedicated radiographic views of the bilateral hips were obtained. There is no fracture, dislocation, bone destruction, or radiopaque foreign body. The visualized pelvic osseous structures and the SI joints demonstrate no acute fracture or dislocation. There is no bone destruction or radiopaque foreign body. The surrounding soft tissue structures are unremarkable. IMPRESSION: 1. No acute fracture or dislocation in the pelvis or either hip. Dictated by: Dictated on workstation # [id number]
--- NOTE | 2019-12-23 05:49 | NUR ---
pt up to commode with stand by assist
[2019-12-23] MEDS ORDERED: cefTRIAXone FOR IV USE 1,000 MG in WATER (STERILE) FOR INJECTION 10 ML IV ONE (06:15)
--- NOTE | 2019-12-23 06:20 | NUR ---
floor rn did not answer for report.
--- NOTE | 2019-12-23 06:24 | NUR ---
floor rn carmela stated she would call back for report.
--- NOTE | 2019-12-23 06:24 | Diagnostic Imaging Report ---
PROCEDURE: CT head and CT cervical spine without contrast. TECHNIQUE: Multiple contiguous axial images were obtained through the brain and cervical spine without the use of intravenous contrast. Sagittal and coronal reformations through the cervical spine were then performed. Auto Exposure Controls were utilized during the CT exam to meet ALARA standards for radiation dose reduction. All CT scans use one or more of the following dose optimizing techniques: automated exposure control, MA and/or KvP adjustment based on a patient size and exam type, or iterative reconstruction. INDICATION: Recent fall, head and neck injury. COMPARISON: None. CT head: FINDINGS: Age-related cerebral volume loss and microvascular changes are present. There is no focus of acute ischemia or hemorrhage. No extra-axial fluid collection is seen. There is no obvious skull fracture. There is some motion artifact obscuring detail. The paranasal sinuses and mastoids are clear. IMPRESSION: Limited examination due to motion. No obvious acute intracranial abnormalities. CT cervical spine: FINDINGS: Alignment of the cervical column is normal. There is no subluxation or fracture. Degenerative changes are seen throughout. There is no osseous lesion. Left thyroid nodule is present. IMPRESSION: 1. No traumatic malalignment or fracture. 2. Bonk-mx-unvatyhk multilevel degenerative disc disease and facet joint arthropathy. 3. Left thyroid nodule. See previously dictated ultrasound report. 4. Not mentioned above, carotid artery calcifications. Dictated by: Dictated on workstation # [id number]
--- NOTE | 2019-12-23 07:00 | NUR ---
BORIS GARCIA admitted to room 411-1, with an admitting diagnosis of UTI, on 12/23/19 from ED], accompanied by family and staff.BORIS GARCIA introduced to surroundings, call light, bed controls, phone, TV, temperature control, lights, meal times, smoking policy, visitor policy, side rail policy, bathrooms and showers. Patient Rights given to patient in the handbook. BROIS GARCIA verbalizes understanding that [facility] is not responsible for the loss or damage to any personal effects or valuables that are kept in the patients posession during their hospitalization. BORIS GARCIA verbalizes understanding of Interdisciplinary Patient Education. Patient and/or family were informed about the Rapid Response Team and its purpose.
[2019-12-23] MEDS ORDERED: NS W/KCL 20 MEQ/L 1,000 ML IV SCH (07:30)
[2019-12-23] MEDS ORDERED: CATHETER FLUSH 10 ML SYR IV PRN (07:30)
[2019-12-23 08:00] VITALS: BP 132/61
[2019-12-23] MEDS: inSUlin ASPART (NovoLOG) 1 UNIT/0.01 ML (CHARGE PER UNIT) SC SCH ×2 (08:34→10:51)
--- NOTE | 2019-12-23 09:00 | Physical Therapy Evaluation ---
PT Evaluation-General Medical Diagnosis Admission Date Dec 23, 2019 at 06:21 Medical Diagnosis: Fall Onset Date: Dec 23, 2019 Therapy Diagnosis Therapy Diagnosis: Weakness, deconditioning Height/Weight Height (Feet): 5 Height (Inches): 4.00 Weight (Pounds): 145 Weight (Ounces): 0.0 Precautions Precautions/Isolations: Fall Prevention, Standard Precautions Weight Bear Status Right Lower Extremity: Right Weight Bearing/Tolerated Left Lower Extremity: Left Weight Bearing/Tolerated Referral Physician: Juvencio Reason for Referral: Evaluation/Treatment Medical History Pertinent Medical History: Arthritis, CAD, DM, Diverticulitis, GERD, HTN, PVD Additional Medical History Lung cancer, depression, psoriasis Current History Patient presented to ER via EMS following her legs feeling weak and "giving out on her" leading to a fall. Reviewed History: Yes Social History Home: Single Level (Ranch Style) Current Living Status: Spouse Entry Into Home: Stairs With Railing PT Steps Into Home: 1 PT Steps Inside Home: 2 (2 steps down to bedroomn, no rail) Prior Prior Level of Function SCALE: Activities may be completed with or without assistive devices. 0-Qwytsfwrmm-rflealj completes the activity by him/herself with no assistance from a helper. 5-Set-up or Clean-up Assistance-helper sets up or cleans up; patient completes activity. [place] assists only prior to or following the activity. 4-Supervision or Touching Assistance-helper provides verbal cues and/or touching/steadying and/or contact guard assistance as patient completes activ ity. Assistance may be provided throughout the activity or intermittently. 3-Partial/Moderate Assistance-helper does LESS THAN HALF the effort. [place] lifts, holds or supports trunk or limbs, but provides less than half the effort. 2-Substantial/Maximal Assistance-helper does MORE THAN HALF the effort. [place] lifts or holds trunk or limbs and provides more than half the effort. 5-Ffvzqzvwu-nujndm does ALL the effort. Patient does none of the effort to complete the activity. Or, the assistance of 2 or more helpers is required for the patient to complete the activity. If activity was not attempted, code reason: 7-Patient Refused. 9-Not Applicable-not attempted and the patient did not perform the activity before the current illness, exacerbation or injury. 10-Not Attempted due to Environmental Limitations-(lack of equipment, weather restraints, etc.). 88-Not Attempted due to Medical Conditions or Safety Concerns. Bed Mobility: 6 Transfers (B,C,W/C): 6 Gait: 6 Stairs: 6 Indoor Mobility (Ambulation): Independent Stairs: Independent Prior Devices Use: Walker, Other-see list below Prior Device Use: Cane Uses cane within the house and the walker outside of the home. PT Evaluation-Current Subjective Patient is agreeable to therapy at this time. No complaints of pain at rest. Pain Numeric Pain Scale: 0-No Pain Pt/Family Goals none stated Objective Patient Orientation: Person, Place, Situation ROM/Strength ROM Lower Extremities WNL BLE Strength Lower Extremities 3+ / 5 gross BLE Integumentary/Posture Integumentary See nursing notes. Bowel Incontinence: No Bladder Incontinence: No Sensory Vision: Functional Hearing: Functional Sensation Right Lower Extremit: Intact Sensation Left Lower Extremity: Intact Transfers Roll Left to Right (QC): 6 Lying to Sitting/Side of Bed(Q: 6 Sit to Stand (QC): 3 Chair/Kdq-uz-Aczqn Xfer(QC): 3 Toilet Transfer: 3 Patient ambulated to the restroom, Patient IND with toileting hygiene. Gait Does the Patient Walk?: Yes Mode of Locomotion: Walk Anticipated Mode of Locomotion: Walk Walk 10 feet (QC): 4 Walk 50 ft with 2 Turns(QC): 4 Distance: 100' Gait Assistive Device: FWW Comments/Gait Description Patient is unsteady during ambulation and standing. Patient fatigues quickly during ambulation. Wheelchair Training Does the Pt Use a Wheelchair?: No Balance Sitting Static: Good Sitting Dynamic: Good Standing Static: Fair Standing Dynamic: Fair Assessment/Needs When standing and while walking patient was unsteady. At initiation of walking patient had a self corrected LOB. Patient will benefit from skilled services to aide in maximizing her LOF. Rehab Potential: Fair PT Residential Goals Channel Sales Manager Goals PT Channel Sales Manager Goals Time Frame: Jan 03, 2020 Roll Left & Right (QC): 6 Sit to Lying (QC): 6 Lying-Sitting on Side/Bed(QC): 6 Sit to Stand (QC): 6 Chair/Efy-fi-Snxac Xfer(QC): 6 Toilet Transfer (QC): 6 Does the Patient Walk: Yes Walk 10 feet (QC): 6 Walk 50ft with 2 Turns (QC): 6 Walk 150 ft (QC): 6 PT Plan Problem List Problem List: Activity Tolerance, Functional Strength, Safety, Balance, Gait, Transfer, Bed Mobility, ROM Treatment/Plan Treatment Plan: Continue Plan of Care Treatment Plan: Bed Mobility, Education, Functional Activity Rosanna, Functional Strength, Gait, Safety, Therapeutic Exercise, Transfers, Other Treatment Duration: Jan 03, 2020 Frequency: 6 times per week Estimated Hrs Per Day: .25 hour per day Patient and/or Family Agrees t: Yes Safety Risks/Education Patient Education: Gait Training, Transfer Techniques, Correct Positioning, Safety Issues Teaching Recipient: Patient Teaching Methods: Demonstration, Discussion Response to Teaching: Reinforcement Needed Discharge Recommendations Plan Patient will undergo strength, endurance, balance, and gait training to maximize her LOF. Therapy Discharge Recommendati: Home & Family Time/GCodes Time In: 838 Time Out: 852 Total Billed Treatment Time: 14 Total Billed Treatment 1 visit EVL 14 KATIE HARRIS PT Dec 23, 2019 09:00
--- NOTE | 2019-12-23 10:00 | NUR ---
report given to [facility]. patient transferred at this time
--- NOTE | 2019-12-23 10:15 | NUR ---
IRF Evaluation Order received to evaluate patient for the ARU. Chart review complete and findings discussed with Dr. Adhikari - patient accepted. Met with patient to discuss details specific to rehabilitation program. Patient agreeable to required therapy regimen and admission. Thank you for this referral.
--- NOTE | 2019-12-23 10:23 | Short Stay Summary-Hospitalist ---
BOBY,YVES,MED STUDENT 12/23/19 1023: History of Present Illness HPI/Chief Complaint Patient is an 84 y/o female with history of metastatic lung cancer who presents with a urinary tract infection and weakness. She reports dysuria, urinary urgency, fever, and chills began 2 days ago. Nothing seems to make the symptoms worse. She has been taking Tylenol as needed which helps. She also reports increased falls over the past 3 weeks, and most recently fell yesterday. She denies associated dizziness or lightheadedness. She believes she is falling because she is unsteady on her feet. She uses a cane most of the time at home. Her lung cancer has metastasized to local lymph nodes only. She follows with an oncologist at [facility], and she is currently being treated with radiation. She declined any surgical intervention. Date Seen 12/23/19 Time Seen by a Provider: 09:05 Attending Physician Bree Henning MD PCP Regan Castle MD Referring Physician Date of Admission Dec 23, 2019 at 06:21 Home Medications & Allergies Home Medications Reviewed patient Home Medication Reconciliation performed by pharmacy medication reconciliations chemistry laboratory technician and/or nursing. Patients Allergies have been reviewed. Allergies Allergies Coded Allergies metronidazole (Verified Allergy, Intermediate, hives, 03/17/17) Sulfa (Sulfonamide Antibiotics) (Verified Allergy, Unknown, 03/20/17) cephalexin (Verified Allergy, Unknown, 01/17/18) ciprofloxacin (Verified Allergy, Unknown, ITCHING, 03/17/17) codeine (Verified Allergy, Unknown, 01/17/18) metoprolol (Verified Allergy, Unknown, 01/17/18) nitrofurantoin (Verified Allergy, Unknown, 01/17/18) Past Taxwbon-Ykptnq-Qjnawl Hx Patient Social History Alcohol Use: Denies Use Recreational Drug Use: No Smoking Status: Former Smoker (quit 20 years ago, 50 pack year history) Former Smoker, Quit: May 01, 1998 Type Used: Cigarettes 2nd Hand Smoke Exposure: No Recent Foreign Travel: No Contact w/other who traveled: No Recent Hopitalizations: No Recent Infectious Disease Expo: No Immunizations Up To Date Tetanus Booster (TDap): Unknown Pediatric: No Date of Pneumonia Vaccine: May 17, 2016 Date of Influenza Vaccine: Sep 29, 2017 Seasonal Allergies Seasonal Allergies: No Past Medical History Surgeries: Appendectomy, Bladder Surgery, Cardiac, Coronary Stent, Gallbladder, Hysterectomy, Vascular Surgery Currently Using CPAP: No Currently Using BIPAP: No Cardiac: Coronary Artery Disease, High Cholesterol, Hypertension, Peripheral Vascular : No Reproductive: Yes Sexually Transmitted Disease: No HIV/AIDS: No Female Reproductive Disorders: Denies Menopausal Genitourinary: Bladder Infection Gastrointestinal: Ulcer Musculoskeletal: Arthritis, Chronic Back Pain Endocrine: Diabetes, Insulin dep Loss of Vision: Bilateral Hearing Impairment: Denies Cancer: Lung Psychosocial: Depression Skin/Integumentary: Psoriasis 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) Adverse Reaction to Blood Boyle: No (HAS HAD BLOOD TRANSFUSION WITH NO DIFFICULTY) Family History Cancer of mouth Diabetes mellitus 19 FATHER Dysphasia G8 SISTER FH: thyroid cancer Myocardial infarction 19 FATHER Cancer Review of Systems Constitutional: chills, fever, weakness EENTM: hearing loss, throat pain Respiratory: cough, short of breath Cardiovascular: chest pain; No edema Gastrointestinal: abdominal pain; No diarrhea Genitourinary: dysuria, other (urgency) Musculoskeletal: back pain, joint pain Skin: No lesions, No rash Psychiatric/Neurological: Denies Headache, Denies Numbness Physical Exam Physical Exam Vital Signs Vital Signs - First Documented 12/23/19 04:10 Temp 36.9 Pulse 98 Resp 23 B/P (MAP) 148/77 (100) Pulse Ox 98 O2 Delivery Room Air Capillary Refill : Less Than 3 Seconds Height, Weight, BMI Height: 5'4.00" Weight: 145lbs. 0.0oz. 65.815186or; 24.00 BMI Method:Stated General Appearance: No Apparent Distress, WD/WN HEENT: Pharynx Normal, Moist Mucous Membranes Neck: Non Tender, Supple Respiratory: Chest Non Tender, Lungs Clear, Normal Breath Sounds, No Accessory Muscle Use, No Respiratory Distress Cardiovascular: No Edema, No Murmur, Tachycardia (regular rhythm) Gastrointestinal: Soft; No Distended; Tenderness (suprapubic) Extremity: No Calf Tenderness, No Pedal Edema Neurologic/Psychiatric: Alert, Normal Mood/Affect Skin: Normal Color, Warm/Dry Lymphatic: No Adenopathy Results Results/Procedures Labs Laboratory Tests 12/23/19 04:25 Patient resulted labs reviewed. Imaging: Reviewed Imaging Films, Reviewed Imaging Report Short Stay Diagnosis Discharge Diagnosis-Short Stay Admission Diagnosis UTI Debility Final Discharge Diagnosis UTI Debility Conclusion Plan UTI - IV ceftriaxone - Culture and sensitivity - IV fluids if not taking in much PO - Tylenol as needed Debility - PT/OT - Speech therapy -- recommend cognitive assessment - Will discharge to inpatient rehab Clinical Quality Measures DVT/VTE Risk/Contraindication: Risk Factor Score Per Nursin RFS Level Per Nursing on Admit: 2=Moderate COLIN DOLAN MD 12/23/192112: Past Jqzkufq-Qvarmu-Ovwibm Hx Past Med/Social Hx: Reviewed Nursing Past Med/Soc Hx Family History Cancer of mouth Diabetes mellitus 19 FATHER Dysphasia G8 SISTER FH: thyroid cancer Myocardial infarction 19 FATHER Short Stay Diagnosis Conclusion Plan Pt was admitted due to UTI and overall debility. She was start on IV abx and improved. Despite this she was still quite weak and IRU consult was placed. They graciously accepted her to IRU for intensive therapy. She was discharged in stable condition to complete antibiotic course there. I did discuss this with Jonathan Rivas APRN for her PCP Dr Castle. Diagnosis/Problems Diagnosis/Problems (1) Metastatic lung carcinoma (2) Physical debility (3) Urinary tract infection Status: Acute Qualifiers: Qualified Codes: N30.00 - Acute cystitis without hematuria Supervisory-Addendum Brief Verification & Attestation Participated in pt care: history, MDM, physical Personally performed: exam, history, MDM, supervision of care Care discussed with: Medical Student Procedures: n/a Results interpretation: Verified all documentation Verification and Attestation of Medical Student E/M Service A medical student performed and documented this service in my presence. I reviewed and verified all information documented by the medical student and made modifications to such information, when appropriate. I personally performed the physical exam and medical decision making. Colin Dolan, Dec 23, 2019,21:12 YVES LANDIS,MED STUDENT Dec 23, 2019 10:23 COLIN DOLAN MD Dec 23, 2019 21:13
[2019-12-23 10:30] VITALS: BP 132/61
== END 2019-12-23 10:30 ==
LOC: EDUNIT# 04:07 → ER 04:09 → 4TH 06:21
PROVIDERS: ADMIT Internal Medicine; ATTEND Internal Medicine
DX: N30.00 Acute cystitis without hematuria (principal); C34.90 Malignant neoplasm of unspecified part of unspecified bronchus or lung; C79.9 Secondary malignant neoplasm of unspecified site; M25.552 Pain in left hip; M25.551 Pain in right hip; I25.10 Atherosclerotic heart disease of native coronary artery without angina pectoris; E78.00 Pure hypercholesterolemia, unspecified; I10 Essential (primary) hypertension; M19.90 Unspecified osteoarthritis, unspecified site; G89.29 Other chronic pain; M54.9 Dorsalgia, unspecified; E11.9 Type 2 diabetes mellitus without complications; F32.9 Major depressive disorder, single episode, unspecified; W19.XXXA Unspecified fall, initial encounter; Z79.899 Other long term (current) drug therapy; Z88.1 Allergy status to other antibiotic agents; Z88.2 Allergy status to sulfonamides; Z88.5 Allergy status to narcotic agent; Z79.891 Long term (current) use of opiate analgesic; Z79.4 Long term (current) use of insulin; Z87.891 Personal history of nicotine dependence; Z90.89 Acquired absence of other organs; Z90.710 Acquired absence of both cervix and uterus; Z88.8 Allergy status to other drugs, medicaments and biological substances; Z80.8 Family history of malignant neoplasm of other organs or systems
CPT/HCPCS: 36415; 70450; 71045; 72125; 73523; 80053; 81000; 82962; 85025; 87088; G0378

== ENCOUNTER 2019-12-23 10:39 | Inpatient (IN) | payer MEDICARE, OTHER ==
[~2019-12-23] VITALS: Ht 162.5 cm; Wt 6.0 kg
--- NOTE | 2019-12-23 10:45 | NUR ---
BORIS GARCIA admitted to room 227-1, with an admitting diagnosis of UTI and debility on 12/23/19 from via 4th floor, accompanied by staff. BORIS GARCIA introduced to surroundings, call light, bed controls, phone, TV, temperature control, lights, meal times, smoking policy, visitor policy, side rail policy, bathrooms and showers. Patient Rights given to patient in the handbook. BORIS GARCIA verbalizes understanding that [facility] is not responsible for the loss or damage to any personal effects or valuables that are kept in the patients posession during their hospitalization. The following Patient Care Plans were discussed with the patient: Discharge Planning, Impaired mobility,Activity Intolerance, and UTI. BORIS GARCIA verbalizes understanding of Interdisciplinary Patient Education. Patient and/or family were informed about the Rapid Response Team and its purpose. Patient received Patient Rights Booklet, which includes Privacy Act Statement and Data Collection Information Summary.
--- NOTE | 2019-12-23 10:45 | NUR ---
Boris Alex admitted to room 227, with an admitting diagnosis of UTI, physical debility , on 12/23/19 from 4th med/surg floor via wheelchair, accompanied by staff.BORIS GARCIA introduced to surroundings, call light, bed controls, phone, TV, temperature control, lights, meal times, smoking policy, visitor policy, side rail policy, bathrooms and showers. Patient Rights given to patient in the handbook.BORIS GARCIA verbalizes understanding that [facility] is not responsible for the loss or damage to any personal effects or valuables that are kept in the patients posession during their hospitalization. The Patient's Care Plans were discussed with the patient as well as discharge planning. BORIS GARCIA verbalizes understanding of Interdisciplinary Patient Education. Patient and/or family were informed about the Rapid Response Team and its purpose.
[2019-12-23] MEDS ORDERED: CALCIUM CARBONATE 500 MG (TUMS) TAB.CHEW PO PRN (11:15)
[2019-12-23] MEDS ORDERED: FLEET ENEMA ADULT 1 EA BTL PR PRN (11:15)
[2019-12-23] MEDS ORDERED: ALPRAZolam 0.25 MG (XANAX) TAB PO PRN (11:15)
[2019-12-23] MEDS ORDERED: MELATONIN 3 MG TABLET PO PRN (11:15)
[2019-12-23] MEDS ORDERED: ONDANSETRON 4 MG/2 ML (SDV) Z0FRAN IV PRN (11:15)
[2019-12-23] MEDS ORDERED: BISACODYL 10 MG SUPP (DULCOLAX) PR PRN (11:15)
[2019-12-23] MEDS ORDERED: LACTULOSE SYRUP 10GM/15ML (ENULOSE) 30ML UDC PO PRN (11:15)
[2019-12-23] MEDS ORDERED: LOPERAMIDE 2 MG (IMODIUM) TABLET PO PRN (11:15)
[2019-12-23] MEDS ORDERED: ONDANSETRON 4 MG (ZOFRAN) ORAL DISSOLVE TAB PO PRN (11:15)
[2019-12-23] MEDS ORDERED: DOCUSATE SODIUM 100 MG (COLACE) CAP PO PRN ×2 (11:15→17:15)
[2019-12-23] MEDS ORDERED: diphenhydrAMINE 25 MG TAB (BENADRYL) PO PRN (11:15)
[2019-12-23 11:47] VITALS: BP 138/67
[2019-12-23] MEDS: ENOXAPARIN 40 MG/0.4 ML (LOVENOX) SYR SC SCH (11:59)
--- NOTE | 2019-12-23 12:13 | Occupational Therapy Eval ---
OT Evaluation-General/PLF Medical Diagnosis Admission Date Dec 23, 2019 at 11:16 Medical Diagnosis: UTI, physical debility Onset Date: Dec 23, 2019 Therapy Diagnosis Therapy Diagnosis: impaired ADLs/functional mobility Height/Weight Height (Feet): 5 Height (Inches): 4.00 Weight (Pounds): 145 Weight (Ounces): 0.0 Precautions Precautions/Isolations: Standard Precautions Referral Physician: Onofre Referral Reason: Activity Tolerance, Self Care, Evaluation/Treatment, Strengthening/ROM Medical History Pertinent Medical History: Arthritis, CAD, DM, Diverticulitis, GERD, HTN, PVD Additional Medical History metastatic lung cancer, appendectomy, bladder surgery, coronary stents, hysterectomy, high cholesterol, depression Current History Pt presents with weakness and UTI, with increased falls over the last 3 weeks with her most recent fall being yesterday. She transferred from [facility] to ARU on 12/23/2019 for continued medication management and skilled therapy services. Reviewed History: Yes Social History Home: Single Level Current Living Status: Spouse Entry Into Home: Stairs With Railing Steps Into Home: 1 (with rail) Steps Inside Home: 2 (in bedroom, no rail) ADL-Prior Level of Function SCALE: Activities may be completed with or without assistive devices. 1-Nfdtnthuac-jejqrhp completes the activity by him/herself with no assistance from a helper. 5-Set-up or Clean-up Assistance-helper sets up or cleans up; patient completes activity. [place] assists only prior to or following the activity. 4-Supervision or Touching Assistance-helper provides verbal cues and/or touching/steadying and/or contact guard assistance as patient completes activity. Assistance may be provided throughout the activity or intermittently. 3-Partial/Moderate Assistance-helper does LESS THAN HALF the effort. [place] lifts, holds or supports trunk or limbs, but provides less than half the effort. 2-Substantial/Maximal Assistance-helper does MORE THAN HALF the effort. [place] lifts or holds trunk or limbs and provides more than half the effort. 0-Alwisizjb-zdrowl does ALL the effort. Patient does none of the effort to complete the activity. Or, the assistance of 2 or more helpers is required for the patient to complete the activity. If activity was not attempted, code reason: 7-Patient Refused. 9-Not Applicable-not attempted and the patient did not perform the activity before the current illness, exacerbation or injury. 10-Not Attempted due to Environmental Limitations-(lack of equipment, weather restraints, etc.). 88-Not Attempted due to Medical Conditions or Safety Concerns. ADL PLOF Comments Pt reports being independent with all ADLs prior to hospitalization, she shares the cooking duty with her , and her daughter cleans the house. She uses a walker when she is out of the house and a cane when she is inside. She has both a walkin shower and a tub/shower but she primarily uses the walkin. Self Care: Independent Functional Cognition: Independent DME/Equipment: Shower, Tub/Shower OT Current Status Subjective Pt sitting upright in recliner post PT session. She agreed to OT evaluation and tx on this date. When asked if she is having any pain, she reports only when she stands up in her knees and ankles. She did not verbalize a pain rating. Mental Status/Objective Patient Orientation: Person, Place, Time, Situation Attachments: IV Current Glasses/Contacts: Yes Hearing Aids: No Dentures/Partials: No Hand Dominance: Right Upper Extremity ROM WFL, BUE shoulder flexion to approx 140 degrees, she is able to bend elbows and touch the back of her head. Upper Extremity Coordination WFL Upper Extremity Sensation pt denied tingling/numbness BUEs Upper Extremity Strength grossly 3+/5 MMT ADL-Treatment Oral Hygiene (QC): 4 (Pt completed sitting in w/c at sink. She needed assistance opening the toothbrush package, and min cues throughout task due to pt attempting to put the toothpaste lid back on upside down. Pt also reached for hot water faucet, asking "is this cold", OT corrected pt. Later in session, pt again reached forward for hot water faucet instead of cold.) Other Treatments Pt seated upright in w/c in her room following PT. She provided information about PLOF and home set up. OT educated pt on the purpose and benefits of OT. Pt verbalized understanding. Pt completed ROM screen, stating she feels like her biggest problem when she is moving her arms is when she moves them below waist level, indicating this is when she feels most unsteady. Pt then taken to the sink where she completed oral hygiene with SBA for min cues, and she brushed her hair with set up of hair brush. Pt then reported she would like to sit in the recliner, she transferred to the recliner with Min A sit to stand, and CGA from w/c to recliner using FWW. OT managed IV pole for pt during transfer. Post OT session, pt upright in recliner, call light in reach and all needs met. Education OT Patient Education: Correct positioning, Energy conservation, Modified ADL techniques, Progress toward Goal/Update tx plan, Purpose of tx/functional activities, Rehab process, Transfer techniques Teaching Recipient: Patient Teaching Methods: Discussion Response to Teaching: Verbalize Understanding OT Short Term Goals Short Term Goals Time Frame: Jan 01, 2020 Toileting hygiene: 4 Shower/bathe self: 4 Upper body dressin Lower body dressin Putting on/taking off footwear: 4 OT Patient Service Coordinator Goals Fpc Goals Time Frame: Jan 10, 2020 Eating (QC): 6 Oral Hygiene (QC): 6 Toileting Hygiene (QC): 6 Shower/Bathe Self (QC): 6 Upper Body Dressing (QC): 6 Lower Body Dressing (QC): 6 On/Off Footwear (QC): 6 Additional Goals: 1-Demonstrate ADL Tasks, 2-Verbalize Understanding, 3-ImproveStrength/Rosanna 1=Demonstrate adherence to instructed precautions during ADL tasks. 2=Patient will verbalize/demonstrate understanding of assistive devices/modifications for ADL. 3=Patient will improve strength/tolerance for activity to enable patient to per form ADL's. OT Education/Plan Problem List/Assessment Assessment: Decreased Activ Tolerance, Decreased UE Strength, Impaired Funct Balance, Impaired I ADL's, Impaired Self-Care Skills Discharge Recommendations Plan/Recommendations: Continue POC Therapy Discharge Recommendati: Post Acute OT Treatment Plan/Plan of Care Treatment,Training & Education: Yes Patient would benefit from OT for education, treatment and training to promote independence in ADL's, mobility, safety and/or upper extremity function for ADL's. Plan of Care: ADL Retraining, Caregiver Training, Functional Mobility, Group Exercise/Act as Ind, UE Funct Exercise/Act Treatment Duration: Jan 10, 2020 Frequency: At least 5 of 7 days/Wk (IRF) Estimated Hrs Per Day: 1.5 hours per day Agreement: Yes Rehab Potential: Good Time/GCodes Start Time: 11:25 Stop Time: 12:00 Total Time Billed (hr/min): 35 Billed Treatment Time 1, EVM (25'), ADL (10') GERDA WELLS OT Dec 23, 2019 12:13
--- NOTE | 2019-12-23 12:14 | Physical Therapy Evaluation ---
PT Evaluation-General Medical Diagnosis Admission Date Dec 23, 2019 at 11:16 Medical Diagnosis: debility Onset Date: Dec 23, 2019 Therapy Diagnosis Therapy Diagnosis: weakness; abn gait Height/Weight Height (Feet): 5 Height (Inches): 4.00 Weight (Pounds): 145 Weight (Ounces): 0.0 Precautions Precautions/Isolations: Standard Precautions Referral Physician: Onofre Reason for Referral: Evaluation/Treatment Medical History Pertinent Medical History: Arthritis, CAD, DM, Diverticulitis, GERD, HTN, PVD Additional Medical History History of metastatic lung CA Current History Pt has history of 2 recent falls at home, most recently yesterday. Also found to have an UTI. Pt transferred to ARU from acute floor for continued medical management and skilled therapy services. Reviewed History: Yes Social History Home: Single Level Current Living Status: Spouse Entry Into Home: Stairs With Railing PT Steps Into Home: 2 Prior Prior Level of Function SCALE: Activities may be completed with or without assistive devices. 8-Chrityybuu-vwzjsul completes the activity by him/herself with no assistance from a helper. 5-Set-up or Clean-up Assistance-helper sets up or cleans up; patient completes activity. [place] assists only prior to or following the activity. 4-Supervision or Touching Assistance-helper provides verbal cues and/or touching/steadying and/or contact guard assistance as patient completes activity. Assistance may be provided throughout the activity or intermittently. 3-Partial/Moderate Assistance-helper does LESS THAN HALF the effort. [place] lifts, holds or supports trunk or limbs, but provides less than half the effort. 2-Substantial/Maximal Assistance-helper does MORE THAN HALF the effort. [place] lifts or holds trunk or limbs and provides more than half the effort. 7-Yrsjyrjes-hvefxw does ALL the effort. Patient does none of the effort to com plete the activity. Or, the assistance of 2 or more helpers is required for the patient to complete the activity. If activity was not attempted, code reason: 7-Patient Refused. 9-Not Applicable-not attempted and the patient did not perform the activity before the current illness, exacerbation or injury. 10-Not Attempted due to Environmental Limitations-(lack of equipment, weather restraints, etc.). 88-Not Attempted due to Medical Conditions or Safety Concerns. Bed Mobility: 6 Transfers (B,C,W/C): 6 Gait: 6 Stairs: 4 Indoor Mobility (Ambulation): Independent Stairs: Needed Some Help Prior Devices Use: Walker Pt reports she rarely leaves her home. Reports she is mod indep within her home. PT Evaluation-Current Subjective Pt agreeable to PT. No complaints. Post treatment, reports she feels tired. Pain Numeric Pain Scale: 0-No Pain Objective Patient Orientation: Person, Place, Time, Situation Attachments: IV ROM/Strength ROM Lower Extremities WNL Strength Lower Extremities B LE strength is grossly 4-/5. Integumentary/Posture Integumentary Refer to nursing notes for full assessment. Bowel Incontinence: No Bladder Incontinence: No Posture rounded shoulders and forward head; tends to stand slightly forward flexed at hips. Neuromuscular (Tone, Coordination, Reflexes) intact and functional Sensory Vision: Wears Glasses Hearing: Functional Hand Dominance: Right Sensation Right Lower Extremit: Intact Sensation Left Lower Extremity: Intact Transfers Roll Left to Right (QC): 4 Sit to Lying (QC): 3 (min assist with legs) Lying to Sitting/Side of Bed(Q: 3 Sit to Stand (QC): 3 (min assist with cues for sequencing and assist to stand.) Chair/Xue-ko-Taddk Xfer(QC): 4 Toilet Transfer: 3 Car Transfer (QC): 3 (assist with legs with skilled cues to sequence. ) Gait Does the Patient Walk?: Yes Mode of Locomotion: Walk Anticipated Mode of Locomotion: Walk Walk 10 feet (QC): 4 Walk 50 ft with 2 Turns(QC): 3 (min assist for safety) Walk 150 ft (QC): 88 (unable to walk this distance. ) Walking 10ft/uneven surface-QC: 3 (min assist for safety and balance) Gait Assistive Device: FWW Comments/Gait Description slow gait forward flexed at hips; decreased step length with decreased heel strike/toe off; slow abebe; unsteady requiring min assist at times. Wheelchair Training Does the Pt Use a Wheelchair?: No Stairs #of Steps: 1 1 Step (curb) (QC): 3 (min assist to step up and down) 4 Steps (QC): 88 12 Steps (QC): 88 Walking Assistive Device: Walker Balance Sitting Static: Normal Sitting Dynamic: Normal Standing Static: Fair Standing Dynamic: Fair Picking up an Object (QC): 88 Treatment Functional transfer training with multiple reps and varied surfaces; min assist with cues for sequencing; gait training to focus on posture and step length. Assessment/Needs Pt presents with gross functional weakness and impaired functional balance that limits bed mobility, transfers and gait; she requires physical and verbal assist with all mobility and takes extra time to complete. She was mod indep at her PLOF. She will benefit from skilled PT to address these deficits to allow her to return home as before. Rehab Potential: Good PT Short Term Goals Short Term Goals Time Frame: Dec 30, 2019 Sit to lyin Lying to sitting on side of be: 5 Sit to stand: 4 Walk 10 feet: 4 Walk 50 feet with two turns: 4 Walk 150 feet: 4 PT Debt And Budget Counselor Goals Debt And Budget Counselor Goals PT Skilled Nursing Goals Time Frame: Jan 06, 2020 Roll Left & Right (QC): 6 Sit to Lying (QC): 6 Lying-Sitting on Side/Bed(QC): 6 Sit to Stand (QC): 6 Chair/Iqe-um-Xiupi Xfer(QC): 6 Toilet Transfer (QC): 6 Car Transfer (QC): 5 Does the Patient Walk: Yes Walk 10 feet (QC): 6 Walk 50ft with 2 Turns (QC): 6 Walk 150 ft (QC): 6 Walking 10ft on Uneven Surface: 5 1 Step (curb) (QC): 5 4 Steps (QC): 4 12 Steps (QC): 9 Picking up an Object (QC): 9 Does the Pt use WC or Scooter?: No PT Plan Problem List Problem List: Activity Tolerance, Functional Strength, Safety, Balance, Gait, Transfer, Bed Mobility Treatment/Plan Treatment Plan: Continue Plan of Care Treatment Plan: Bed Mobility, Education, Functional Activity Rosanna, Functional Strength, Group Therapy, Gait, Safety, Therapeutic Exercise, Transfers Treatment Duration: Jan 06, 2020 Frequency: At least 5 of 7 days/Wk (IRF) Estimated Hrs Per Day: 1.5 hours per day Patient and/or Family Agrees t: Yes Safety Risks/Education Patient Education: Transfer Techniques, Safety Issues Teaching Recipient: Patient Teaching Methods: Discussion Response to Teaching: Reinforcement Needed Discharge Recommendations Therapy Discharge Recommendati: Post Acute PT Time/GCodes Time In: 1045 Time Out: 1125 Total Billed Treatment Time: 40 Total Billed Treatment visit EVM 15 FA 25 BAL WILSON PT Dec 23, 2019 12:14
--- NOTE | 2019-12-23 12:49 | Physical Therapy Daily Note ---
PT Daily Note-Current Subjective Pt agreeable to PT session. Pain Numeric Pain Scale: 0-No Pain Comment: not while at rest, up on feet back and legs hurt Appearance Upon arrival, pt sitting up in recliner finishing lunch with present. At end of session, pt sitting up in w/c in group session. Mental Status Patient Orientation: Person, Place, Time, Eyes Open, Situation Attachments: IV Transfers SCALE: Activities may be completed with or without assistive devices. 7-Cugmjhehwi-hpokseg completes the activity by him/herself with no assistance from a helper. 5-Set-up or Clean-up Assistance-helper sets up or cleans up; patient completes activity. [place] assists only prior to or following the activity. 4-Supervision or Touching Assistance-helper provides verbal cues and/or touching/steadying and/or contact guard assistance as patient completes activity. Assistance may be provided throughout the activity or intermittently. 3-Partial/Moderate Assistance-helper does LESS THAN HALF the effort. [place] lifts, holds or supports trunk or limbs, but provides less than half the effort. 2-Substantial/Maximal Assistance-helper does MORE THAN HALF the effort. [place] lifts or holds trunk or limbs and provides more than half the effort. 9-Hchrdvjrq-vrlsav does ALL the effort. Patient does none of the effort to complete the activity. Or, the assistance of 2 or more helpers is required for the patient to complete the activity. If activity was not attempted, code reason: 7-Patient Refused. 9-Not Applicable-not attempted and the patient did not perform the activity before the current illness, exacerbation or injury. 10-Not Attempted due to Environmental Limitations-(lack of equipment, weather restraints, etc.). 88-Not Attempted due to Medical Conditions or Safety Concerns. Sit to Stand (QC): 4 skilled verb inst required for safety and hand placement during transitions. x3 attempts to stand without physical assist Gait Training Does the Patient Walk?: Yes Distance: 82 Walk 10 feet (QC): 4 Walk 50 ft with 2 Turns(QC): 4 Gait Persons Needed: 2 (therapist providing CGA with gait belt, aide following with w/c and IV pole) Gait Assistive Device: FWW slow gait with decreased step length and height, increased pain in back and legs, no LOB, min A verb inst required for posture and positioning of walker Treatments education, safety, transfers, gait, balance, strength, activity tolerance, functional mobility Assessment Pt fatigues with activity, increased pain in LE's and back with activity PT Short Term Goals Short Term Goals Time Frame: Dec 30, 2019 Sit to lyin Lying to sitting on side of be: 5 Sit to stand: 4 Walk 10 feet: 4 Walk 50 feet with two turns: 4 Walk 150 feet: 4 PT Halfway Goals Injection Wax Molder Goals PT Halfway Goals Time Frame: Jan 06, 2020 Roll Left & Right (QC): 6 Sit to Lying (QC): 6 Lying-Sitting on Side/Bed(QC): 6 Sit to Stand (QC): 6 Chair/Gqb-hq-Wbfvy Xfer(QC): 6 Toilet Transfer (QC): 6 Car Transfer (QC): 5 Does the Patient Walk: Yes Walk 10 feet (QC): 6 Walk 50ft with 2 Turns (QC): 6 Walk 150 ft (QC): 6 Walking 10ft on Uneven Surface: 5 1 Step (curb) (QC): 5 4 Steps (QC): 4 12 Steps (QC): 9 Picking up an Object (QC): 9 Does the Pt use WC or Scooter?: No PT Plan Treatment/Plan Treatment Plan: Continue Plan of Care Treatment Plan: Bed Mobility, Education, Functional Activity Rosanna, Functional Strength, Group Therapy, Gait, Safety, Therapeutic Exercise, Transfers Treatment Duration: Jan 06, 2020 Frequency: At least 5 of 7 days/Wk (IRF) Estimated Hrs Per Day: 1.5 hours per day Patient and/or Family Agrees t: Yes Safety Risks/Education Patient Education: Gait Training, Transfer Techniques, Safety Issues Teaching Recipient: Patient, Family Teaching Methods: Demonstration, Discussion Response to Teaching: Verbalize Understanding, Return Demonstration Time/GCodes Time In: 1240 Time Out: 1300 Total Billed Treatment Time: 20 Total Billed Treatment 1 visit, GT x20 min AARON CUEVAS THREAD PULLING MACHINE ATTENDANT Dec 23, 2019 12:49
--- NOTE | 2019-12-23 14:15 | NUR ---
Pt is [employer]. provided prayer and Communion. Addendum: 12/24/19 at 1356 by LOPEZ QUINTANA Pt did not receive Communion.
--- NOTE | 2019-12-23 14:26 | Therapy Group Daily Note ---
Therapy Daily Group Note Patient Education Topic Other List Below (TRF techniques and safety) Exercises LE Seated Exercise, UE Exercise Session Ratio (pt:therapist): 4:1 Goal of Session: Safety with Transfers Goal Met for this Session: Yes Pt Benefit of Group: Increased Functional Safety, Increased Functional Strength, Socialization Other/Notes Pt. participated in group PT OT session this date. Pt. was assisted via w/c to and from group. Pts introduced themselves and socialized briefly before exercise and TRF technique education was demonstrated and shared. Bed mobility for rolling, scooting up in bed , side to sit , sit to stand , vehicle TRFs and tub TRFs were all demonstrated and discussed with pts sharing and contributing appropriately. Pts. also participated in seated U&L extremity therex. Pt. to room after group with assist to bed, sep[place] at hand. Start Time: 13:00 Stop Time: 14:10 Total Billed Treatment Time: 70 Total Billed Treatment 1,GRP CHOLO VALENTINE SEASONAL WAREHOUSE ASSOCIATE Dec 23, 2019 14:26
--- NOTE | 2019-12-23 15:02 | Occupational Ther Daily Note ---
OT Current Status-Daily Note Subjective No pain reported. Appearance Pt. in dining area after group therapy. Requests to use bathroom. Mental Status/Objective Patient Orientation: Person, Place ADL-Treatment Therapy Code Descriptions/Definitions Functional [place] Measure: 0=Not Assessed/NA 4=Minimal Assistance 1=Total Assistance 5=Supervision or Setup 2=Maximal Assistance 6=Modified [place] 3=Moderate Assistance 7=Complete IndependenceSCALE: Activities may be completed with or without assistive devices. 4-Orltpgupzy-lyxzzrv completes the activity by him/herself with no assistance from a helper. 5-Set-up or Clean-up Assistance-helper sets up or cleans up; patient completes activity. [place] assists only prior to or following the activity. 4-Supervision or Touching Assistance-helper provides verbal cues and/or touching/steadying and/or contact guard assistance as patient completes activity. Assistance may be provided throughout the activity or intermittently. 3-Partial/Moderate Assistance-helper does LESS THAN HALF the effort. [place] lifts, holds or supports trunk or limbs, but provides less than half the effort. 2-Substantial/Maximal Assistance-helper does MORE THAN HALF the effort. [place] lifts or holds trunk or limbs and provides more than half the effort. 2-Qricfidef-mobevw does ALL the effort. Patient does none of the effort to complete the activity. Or, the assistance of 2 or more helpers is required for the patient to complete the activity. If activity was not attempted, code reason: 7-Patient Refused. 9-Not Applicable-not attempted and the patient did not perform the activity before the current illness, exacerbation or injury. 10-Not Attempted due to Environmental Limitations-(lack of equipment, weather restraints, etc.). 88-Not Attempted due to Medical Conditions or Safety Concerns. Oral Hygiene (QC): 4 (SBA standing at sink.) On/Off Footwear: 4 (SBA to doff/don slipper socks.) Toileting Hygiene (QC): 4 (CGA) Toilet Transfer (QC): 3 (Min assist.) Other Treatment After toileting task, pt. ambulated to sink to complete oral care. Then pt. ambulated with CGA/Min assist to dining area. Pt. sat and practiced doffing/donning slipper socks. Required SBA and cues. Pt. ambulated back to room. Transferred to bed with min assist. All needs met in room. Education OT Patient Education: Correct positioning, Modified ADL techniques, Progress toward Goal/Update tx plan, Purpose of tx/functional activities, Reviewed precautions, Rehab process, Transfer techniques Teaching Recipient: Patient Teaching Methods: Demonstration, Discussion Response to Teaching: Verbalize Understanding, Return Demonstration OT Short Term Goals Short Term Goals Time Frame: Jan 01, 2020 Toileting hygiene: 4 Shower/bathe self: 4 Upper body dressin Lower body dressin Putting on/taking off footwear: 4 OT Usp Goals Usp Goals Time Frame: Jan 10, 2020 Eating (QC): 6 Oral Hygiene (QC): 6 Toileting Hygiene (QC): 6 Shower/Bathe Self (QC): 6 Upper Body Dressing (QC): 6 Lower Body Dressing (QC): 6 On/Off Footwear (QC): 6 Additional Goals: 1-Demonstrate ADL Tasks, 2-Verbalize Understanding, 3- ImproveStrength/Rosanna 1=Demonstrate adherence to instructed precautions during ADL tasks. 2=Patient will verbalize/demonstrate understanding of assistive devices/modifications for ADL. 3=Patient will improve strength/tolerance for activity to enable patient to perform ADL's. OT Education/Plan Problem List/Assessment Assessment: Decreased Activ Tolerance, Decreased UE Strength, Dependent Transfers, Impaired Bed Mobility, Impaired Funct Balance, Impaired I ADL's, Impaired Self-Care Skills Discharge Recommendations Plan/Recommendations: Continue POC Therapy Discharge Recommendati: Home & Family, Post Acute OT Treatment Plan/Plan of Care Treatment,Training & Education: Yes Patient would benefit from OT for education, treatment and training to promote independence in ADL's, mobility, safety and/or upper extremity function for ADL's. Plan of Care: ADL Retraining, Caregiver Training, Functional Mobility, Group Exercise/Act as Ind, UE Funct Exercise/Act Treatment Duration: Jan 10, 2020 Frequency: At least 5 of 7 days/Wk (IRF) Estimated Hrs Per Day: 1.5 hours per day Agreement: Yes Rehab Potential: Good Time/GCodes Start Time: 14:00 Stop Time: 14:30 Total Time Billed (hr/min): 30 Billed Treatment Time 1, ADL x 15minutes, FA x 15minutes PAULA SOLER OT Dec 23, 2019 15:02
[2019-12-23 16:00] VITALS: BP 119/71
[2019-12-23] MEDS ORDERED: HYDROcodone/APAP 5 MG/325 MG (LORTAB) TAB PO PRN (17:15)
[2019-12-23] MEDS ORDERED: HYDROCORTISONE 25 MG SUPPOSITORY (ANUSOL HC) RC PRN (17:15)
[2019-12-23] MEDS ORDERED: polyethylene glycoL POWDER 17 GM (MIRALAX) PACK PO SCH (17:15)
[2019-12-23] MEDS ORDERED: PATIENT MAY USE OWN MED,SINGLE MED PO SCH (17:30)
[2019-12-23 18:00] VITALS: BP 120/78
--- NOTE | 2019-12-23 19:28 | NUR ---
bedside report received from YULI FALCON, assume care of pt
[2019-12-23] MEDS: diphenhydrAMINE 25 MG TAB (BENADRYL) PO SCH (20:34)
[2019-12-23] MEDS: LACTOBACILLUS ACIDOPHILUS (PROBIOTIC) CAPSULE PO SCH (20:34)
--- NOTE | 2019-12-23 20:34 | NUR ---
pt refused Katt rodgers [employer] wants to wait on Restoril & melatonin, if can not sleep will call for meds, up with 1 person assist & walker
[2019-12-23] MEDS: VITAMIN D3 25 MCG (1,000 UNITS) TABLET PO SCH (20:36)
[2019-12-23] MEDS: inSUlin ASPART (NovoLOG) 1 UNIT/0.01 ML (CHARGE PER UNIT) SC SCH (20:41)
[2019-12-23] MEDS: SENNA W/DOCUSATE (SENOKOT S) TABLET PO SCH (20:46)
[2019-12-23] MEDS: DOCUSATE SODIUM 100 MG (COLACE) CAP PO SCH (20:46)
[2019-12-23] MEDS: polyethylene glycoL POWDER 17 GM (MIRALAX) PACK PO SCH (20:46)
[2019-12-23] MEDS: MELATONIN 3 MG TABLET PO SCH (21:00)
[2019-12-23] MEDS: TEMAZEPAM 15 MG (RESTORIL) CAP PO SCH (21:00)
--- NOTE | 2019-12-23 21:23 | PM&R Post Admission Assessment ---
PM&R HP Date of Visit: Dec 23, 2019 Time of Visit: 11:30 History of Present Illness CC: UTI with falls and h/o metastatic lung cancer HPI: (Hospital course per Dr Dolan: Patient is an 84 y/o female with history of metastatic lung cancer who presents with a urinary tract infection and weakness. She reports dysuria, urinary urgency, fever, and chills began 2 days ago. Nothing seems to make the symptoms worse. She has been taking Tylenol as needed which helps. She also reports increased falls over the past 3 weeks, and most recently fell yesterday. She denies associated dizziness or lightheadedness. She believes she is falling because she is unsteady on her feet. She uses a cane most of the time at home. Her lung cancer has metastasized to local lymph nodes only. She follows with an oncologist at [facility], and she is currently being treated with radiation. She declined any surgical intervention). Patient has tolerated Rocephin empirically. Difficult to obtain a details history from the patient. No family at bedside. Patient denies any significant pain at this [facility] time. Past Gmgnkaw-Uspmhm-Kgnkbg Hx Past Med/Social Hx: Reviewed Nursing Past Med/Soc Hx, Reviewed and Corrections made Patient Social History Marrital Status: Employed/Student: retired Alcohol Use: Denies Use Recreational Drug Use: No Smoking Status: Never a Smoker Former Smoker, Quit: May 01, 1998 Type Used: Cigarettes 2nd Hand Smoke Exposure: No Physical Abuse Screen: No Sexual Abuse: No Recent Foreign Travel: No Contact w/other who traveled: No Recent Hopitalizations: No Recent Infectious Disease Expo: No Immunizations Up To Date Tetanus Booster (TDap): Unknown Pediatric: No Date of Pneumonia Vaccine: May 17, 2016 Date of Influenza Vaccine: Sep 29, 2017 Seasonal Allergies Seasonal Allergies: No Past Medical History Surgeries: Appendectomy, Bladder Surgery, Cardiac, Coronary Stent, Gallbladder, Hysterectomy, Vascular Surgery Currently Using CPAP: No Currently Using BIPAP: No Cardiac: Coronary Artery Disease, High Cholesterol, Hypertension, Peripheral Vascular Reproductive: Yes Sexually Transmitted Disease: No HIV/AIDS: No Female Reproductive Disorders: Denies Menopausal Genitourinary: Bladder Infection Gastrointestinal: Ulcer Musculoskeletal: Arthritis, Chronic Back Pain Endocrine: Diabetes, Insulin dep Loss of Vision: Bilateral Hearing Impairment: Denies Cancer: Lung Did You Recieve Any Treatments: Yes What Type of Treatment Did You: Radiation Psychosocial: Depression Skin/Integumentary: Psoriasis 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) Adverse Reaction to Blood Boyle: No (HAS HAD BLOOD TRANSFUSION WITH NO DIFFICULTY) Family History Cancer of mouth Diabetes mellitus 19 FATHER Dysphasia G8 SISTER FH: thyroid cancer Myocardial infarction 19 FATHER Cancer Prior Level of Function Bed Mobility: 6 Transfers: 6 Gait: 6 Stairs: 4 Indoor Mobility (Ambulation): Independent Stairs: Needed Some Help Prior Devices Use: Walker Self Care: Independent Functional Cognition: Independent Current Level of Fuctioning Roll Left to Right: 4 Sit to Lyin (min assist with legs) Lying to Sitting/Side of Bed: 3 Sit to Stand: 4 Chair/Rrk-ut-Htwpa Xfer: 4 Car Transfer: 3 (assist with legs with skilled cues to sequence. ) Does the Patient Walk: Yes Mode of Locomotion: Walk Anticipated Mode of Locomotion: Walk Walk 10 feet: 4 Walk 50 ft with 2 Turns: 4 Walk 150 ft: 88 (unable to walk this distance. ) Walking 10ft on uneven surface: 3 (min assist for safety and balance) Gait Assistive Device: FWW Does the Pt Use a Wheelchair: No #of Steps: 1 1 Step (curb): 3 (min assist to step up and down) 4 Steps: 88 Walking Assistive Device: Walker 12 Steps: 88 Picking up an Object: 88 Oral Hygiene: 4 (SBA standing at sink.) On/Off Footwear: 4 (SBA to doff/don slipper socks.) Toileting Hygiene: 4 (CGA) Toilet Transfer: 3 (Min assist.) PM&R Allergy/Meds/Data Review Allergies Coded Allergies: metronidazole (Verified Allergy, Intermediate, hives, 03/17/17) Sulfa (Sulfonamide Antibiotics) (Verified Allergy, Unknown, 03/20/17) cephalexin (Verified Allergy, Unknown, 01/17/18) ciprofloxacin (Verified Allergy, Unknown, ITCHING, 03/17/17) codeine (Verified Allergy, Unknown, 01/17/18) metoprolol (Verified Allergy, Unknown, 01/17/18) nitrofurantoin (Verified Allergy, Unknown, 01/17/18) Home Medications Scheduled Atorvastatin Calcium (Atorvastatin Calcium), 40 MG PO DAILY, (Reported) Cholecalciferol (Vitamin D3) (Vitamin D3), 2,000 UNIT PO BID, (Reported) Cranberry Extract (Cranberry), 500 MG PO BID, (Reported) Diphenhydramine HCl (Diphenhydramine HCl), 25 MG PO HS, (Reported) Insulin Lispro (Humalog), 5 UNIT SQ ACHS, (Reported) Lactobacillus Acidophilus (Probiotic), 1 EACH PO BID, (Reported) Melatonin (Melatonin), 10 MG PO HS, (Reported) Pantoprazole Sodium (Pantoprazole Sodium), 40 MG PO DAILY, (Reported) Polyethylene Glycol 3350 (Miralax), 17 GM PO PRN, (Reported) Pyridoxine HCl (Vitamin B-6), 100 MG PO DAILY, (Reported) Temazepam (Temazepam), 30 MG PO HS, (Reported) Scheduled PRN Acetaminophen (Acetaminophen Extra Strength), 1,000 MG PO Q6H PRN for PAIN-MILD, (Reported) Docusate Sodium (Docusate Sodium), 100 MG PO PRN PRN for CONSTIPATION-1ST LINE, (Reported) Hydrocodone Bit/Acetaminophen (Hydrocodone/Acetaminophen 5/325mg Tablet), 1 EACH PO Q6-8hours PRN for PAIN-MODERATE Hydrocortisone Acetate (Anucort-Hc), 25 MG RC BID PRN for CONSTIPATION-3RD LINE, (Reported) Tramadol HCl (Tramadol HCl), 50 MG PO Q6H PRN for PAIN-MODERATE, (Reported) Discontinued Medications Amoxicillin/Potassium Clav (Augmentin 875-125 Tablet), 1 EACH PO BID Doxycycline Hyclate (Doxycycline Hyclate), 100 MG PO BID Current Medications Current Medications Reviewed Laboratory Data Laboratory Tests 12/23/19 11:56: Glucometer 252H 12/23/19 15:38: Glucometer 190H 12/23/19 20:41: Glucometer 185H Review of Systems Constitutional: see HPI, malaise, weakness Respiratory: dyspnea on exertion Cardiovascular: no symptoms reported Gastrointestinal: no symptoms reported Genitourinary: frequency Musculoskeletal: no symptoms reported Skin: no symptoms reported Psychiatric/Neurological: Depressed All Other Systems Reviewed Negative Unless Noted: Yes Physical Exam Physical Exam Vital Signs Vital Signs - First Documented 12/23/19 11:47 Temp 36.2 Pulse 102 Resp 18 B/P (MAP) 138/67 Pulse Ox 98 O2 Delivery Room Air Capillary Refill : Less Than 3 Seconds Height, Weight, BMI Height: 5'4.00" Weight: 145lbs. 0.0oz. [id number]; 22.87 BMI Method:Stated General Appearance: No Apparent Distress, WD/WN, Chronically ill Eyes: Bilateral Eye Normal Inspection, Bilateral Eye PERRL HEENT: PERRL/EOMI, Normal ENT Inspection, Pharynx Normal Neck: Full Range of Motion, Normal Inspection, Non Tender, Supple, Carotid Bruit Respiratory: Chest Non Tender, Lungs Clear, No Accessory Muscle Use, No Respiratory Distress, Decreased Breath Sounds Cardiovascular: Regular Rate, Rhythm, No Edema, No Gallop, No JVD, No Murmur, Normal Peripheral Pulses Gastrointestinal: Normal Bowel Sounds, No Organomegaly, No Pulsatile Mass, Non Tender, Soft Back: Normal Inspection, No CVA Tenderness, No Vertebral Tenderness Extremity: Normal Capillary Refill, Normal Inspection, Normal Range of Motion, Non Tender, No Calf Tenderness, No Pedal Edema Neurologic/Psychiatric: Alert, Oriented x3, No Motor/Sensory Deficits, Normal 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, 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 Norm as Tested, Disoriented (subtle poor recall) Skin: Normal Color, Warm/Dry Lymphatic: No Adenopathy PM&R Medical Assessment & Plan REHAB/MEDICAL ASSESSMENT AND PLAN: REHAB IMPAIRMENT GROUP: Debility with falls in lung cancer patient ETIOLOGIC DIAGNOSIS: Debility with falls in lung cancer patient The comorbidities that impact the patients function and/or functional outcome by: Advanced age, cancer mets from lung cancer, poor recall, fall risk REHAB PLAN: The patient is being admitted to our comprehensive inpatient rehabilitation facility and can tolerate the intensity of service consisting of at least: 180 minutes of therapy a day, 5 out of 7 days a week Rehab treatment will consist of: PT OT ST will all focus on regaining ADL's and prevent falls in order to return home with her The patient/family has a good understanding of our discharge process and will benefit from an interdisciplinary inpatient rehabilitation program. The patient has potential to make improvement and is in need of at least two of the following multidisciplinary therapies including but not limited to physical, occupational, speech, and prosthetics and orthotics. Additionally the patient will need services from respiratory, nutritional services, wound care, psychology, etc. (Customize this to each patient). Given the patients complex condition and risk of further medical complications, rehabilitation services cannot be safely or effectively provided at a lower level of care such as a fci facility. BARRIERS TO DISCHARGE: Lung cancer mets continue to progress ESTIMATED LOS: 7 days DISPOSITION: Home with RELEVANT CHANGES SINCE PREADMISSION SCREENING: I have compared the patients medical and functional status at the time of the preadmission screening and there are: no changes PROGNOSIS: Good REHABILITATION GOALS: 1. PT OT ST will all focus on regaining ADL's and prevent falls in order to return home with her All the above goals were reviewed with the patient and he/she is in agreement. By signing this document, I acknowledge that I have personally performed a full physical examination on this patient within 24 hours of admission to this inpatient rehabilitation facility and have determined the patient to be able to tolerate the above course of treatment at an intensive level for a reasonable period of time. I will be completing a detailed individualized Plan of Care for this patient by day #4 of the patients stay based upon the Preadmission Screen, the Post-Admission Evaluation, and the therapy evaluations. Admission Dx/Comorbidities: (1) Physical debility ICD Codes: R53.81 - Other malaise (2) Urinary tract infection Status: Acute (3) Metastatic lung carcinoma ICD Codes: C78.00 - Secondary malignant neoplasm of unspecified lung (4) Dyspnea ICD Codes: R06.00 - Dyspnea, unspecified (5) Insulin dependent diabetes mellitus Status: Chronic ICD Codes: E11.9 - Type 2 diabetes mellitus without complications; Z79.4 - FDC (current) use of insulin (6) Dizziness Status: Acute (7) Fall Status: Acute ICD Codes: W19.XXXA - Unspecified fall, initial encounter Assessment/Plan Assessment and Plan Assess & Plan/Chief Complaint Assessment: Fall Debility Poor recall Lung cancer with mets DM insulin dependent UTI acute on chronic Plan: Fall prevention IRF protocol UTI treatment Insulin HELADIO MODI DO Dec 23, 2019 21:23
[2019-12-24 06:00] VITALS: BP 146/75
[2019-12-24] MEDS: inSUlin ASPART (NovoLOG) 1 UNIT/0.01 ML (CHARGE PER UNIT) SC SCH ×4 (06:34→21:28)
[2019-12-24 07:19] LABS: BASOPHILS % (AUTO) 0 % (0-10); EOSINOPHILS # (AUTO) 0.2 10^3/uL (0.0-0.3); EOSINOPHILS % (AUTO) 2 % (0-10); HEMATOCRIT 32 % (35-52); HEMOGLOBIN 9.9 G/DL (11.5-16.0); LYMPHOCYTES % (AUTO) 12 % (12-44); MEAN CORPUSCULAR HEMOGLOBIN 26 PG (25-34); MEAN CORPUSCULAR HGB CONC 31 G/DL (32-36); MEAN CORPUSCULAR VOLUME 85 FL (80-99); MEAN PLATELET VOLUME 8.9 FL (7.4-10.4); MONOCYTES # (AUTO) 0.5 X 10^3 (0.0-1.0); MONOCYTES % (AUTO) 6 % (0-12); NEUTROPHILS # (AUTO) 6.5 X 10^3 (1.8-7.8); NEUTROPHILS % (AUTO) 80 % (42-75); PLATELET COUNT 341 10^3/uL (130-400); RED CELL DISTRIBUTION WIDTH 15.6 % (10.0-14.5); WHITE BLOOD COUNT 8.2 10^3/uL (4.3-11.0)
[2019-12-24 07:39] LABS: ALANINE AMINOTRANSFERASE 18 U/L (0-55); ALBUMIN 3.5 GM/DL (3.2-4.5); ALKALINE PHOSPHATASE 97 U/L (40-136); BILIRUBIN,TOTAL 0.3 MG/DL (0.1-1.0); BUN/CREATININE RATIO 14; CALCIUM 9.9 MG/DL (8.5-10.1); CARBON DIOXIDE 21 MMOL/L (21-32); CHLORIDE 106 MMOL/L (98-107); CREATININE SERUM 0.81 MG/DL (0.60-1.30); GFR ESTIMATED > 60; GLUCOSE 188 MG/DL (70-105); SODIUM 139 MMOL/L (135-145); TOTAL PROTEIN 6.3 GM/DL (6.4-8.2)
[2019-12-24 07:52] LABS: ATYPICAL LYMPHOCYTES 2 %; BAND NEUTROPHILS 1 %; LYMPHOCYTES % (MANUAL) 13 %; MONOCYTES % (MANUAL) 7 %; NEUTROPHILS % (MANUAL) 77 %; POLYCHROMASIA SLIGHT
[2019-12-24 07:53] LABS: ANISOCYTOSIS SLIGHT; BURR CELLS SLIGHT; POIKILOCYTOSIS SLIGHT
--- NOTE | 2019-12-24 08:00 | NUR ---
DENIES PAIN. STATES SLEPT GOOD, BUT STILL VERY TIRED. AT BEDSIDE STATES SHE SLEEPS A LOT AT HOME. ADMITS TO CONTINUED URINARY BURNING AND FREQUENCY. STARTING ON OMNICEF TODAY. NO OTHER COMPLAINTS OF PAIN.
--- NOTE | 2019-12-24 08:07 | Physical Therapy Daily Note ---
PT Daily Note-Current Subjective Pt agreeable to PT session both session. Pain Numeric Pain Scale: 0-No Pain Comment: both sessions Appearance Pt in bed upon arrival, easily awakened, Requesting and assisted to restroom, SBA for liliya care. At end of session, pt fatigued and requesting and assisted to lay down in bed, nursing and present, call light, phone and bedside table within reach. 2nd session: pt in bed upon arrival, easily awakened, at end of session, pt requesting and assisted to restroom, call light cord in hand with inst to pull and await assistance before getting up, pt verb agreement and understanding Mental Status Patient Orientation: Person, Place, Time, Eyes Open, Situation Attachments: Saline Lock Transfers SCALE: Activities may be completed with or without assistive devices. 9-Rvpcjbxekj-jvkfctn completes the activity by him/herself with no assistance from a helper. 5-Set-up or Clean-up Assistance-helper sets up or cleans up; patient completes activity. Greer assists only prior to or following the activity. 4-Supervision or Touching Assistance-helper provides verbal cues and/or touching/steadying and/or contact guard assistance as patient completes activity. Assistance may be provided throughout the activity or intermittently. 3-Partial/Moderate Assistance-helper does LESS THAN HALF the effort. Greer lifts, holds or supports trunk or limbs, but provides less than half the effort. 2-Substantial/Maximal Assistance-helper does MORE THAN HALF the effort. Greer lifts or holds trunk or limbs and provides more than half the effort. 0-Gfkhxhgru-wvgfki does ALL the effort. Patient does none of the effort to complete the activity. Or, the assistance of 2 or more helpers is required for the patient to complete the activity. If activity was not attempted, code reason: 7-Patient Refused. 9-Not Applicable-not attempted and the patient did not perform the activity before the current illness, exacerbation or injury. 10-Not Attempted due to Environmental Limitations-(lack of equipment, weather restraints, etc.). 88-Not Attempted due to Medical Conditions or Safety Concerns. Sit to Lying (QC): 4 Lying to Sitting/Side of Bed(Q: 4 (HOB elevated and use of bedrail) Sit to Stand (QC): 4 (max skilled verb inst for safety and had placement) Toilet Transfer (QC): 4 (max skilled verb inst for safety and hand placement) Gait Training Does the Patient Walk?: Yes Distance: 90, 80, 80. 90 Walk 10 feet (QC): 4 Walk 50 ft with 2 Turns(QC): 4 Gait Persons Needed: 1 Gait Assistive Device: FWW easily fatigues, follow with w/c, slow pace, decreased step height and length Exercises Supine Ex: Bridging, Ankle pumps (20), Glut sets, Heel Slides (20), Knee to c hest (2x10), Straight leg raise (2 x10), Hip abd/add (20) Supine Reps: 20 (requiring rest breaks after each ex and 1/2 through reps on some) Seated Therapy Exercises: Ankle pumps (20), Long arc quads (20), Hip flexion (20), Hip abd/add (20) Standing: Hip Abduction (10), Hamstring curls (10), Heel/toe raises (10), 3 way Ex=Flex, Abd, Ext (10 each), Marching (10), Mini squats (0), Sit to Stand (10) Standing Reps: 10 (in // bars with BUE support, pt requiring sitting rest breaks after each 1-2 ex's performed due to fatigue) NuStep Minutes: 5 (x2, rest break required due to fatigue) NuStep Workload: 1 (seat arms 7) Treatments education, safety, bed mobility, transfers, gait, toileting, liliya care, activity tolerance, functional mobility, strength, balance. 2nd session: education, safety, bed mobility, transfers, gait, toileting, activity tolerance, functional mobility Assessment Current Status: Fair Progress pt fatigues easily and quickly requiring several rest breaks throughout tx session. PT Short Term Goals Short Term Goals Time Frame: Dec 30, 2019 Sit to lyin Lying to sitting on side of be: 5 Sit to stand: 4 Walk 10 feet: 4 Walk 50 feet with two turns: 4 Walk 150 feet: 4 PT Coil Connector Repairer Goals Care Home Goals PT Care Home Goals Time Frame: Jan 06, 2020 Roll Left & Right (QC): 6 Sit to Lying (QC): 6 Lying-Sitting on Side/Bed(QC): 6 Sit to Stand (QC): 6 Chair/Bvn-jk-Lswnq Xfer(QC): 6 Toilet Transfer (QC): 6 Car Transfer (QC): 5 Does the Patient Walk: Yes Walk 10 feet (QC): 6 Walk 50ft with 2 Turns (QC): 6 Walk 150 ft (QC): 6 Walking 10ft on Uneven Surface: 5 1 Step (curb) (QC): 5 4 Steps (QC): 4 12 Steps (QC): 9 Picking up an Object (QC): 9 Does the Pt use WC or Scooter?: No PT Plan Treatment/Plan Treatment Plan: Continue Plan of Care Treatment Plan: Bed Mobility, Education, Functional Activity Rosanna, Functional Strength, Group Therapy, Gait, Safety, Therapeutic Exercise, Transfers Treatment Duration: Jan 06, 2020 Frequency: At least 5 of 7 days/Wk (IRF) Estimated Hrs Per Day: 1.5 hours per day Patient and/or Family Agrees t: Yes Safety Risks/Education Patient Education: Gait Training, Transfer Techniques, Safety Issues Teaching Recipient: Patient Teaching Methods: Demonstration, Discussion Response to Teaching: Verbalize Understanding, Return Demonstration, Reinforcement Needed Time/GCodes Time In: 750 (2nd session: 1108) Time Out: 905 (2nd session: 1125) Total Billed Treatment Time: 75 (2nd session: 17 min) Total Billed Treatment 1 visit, FA x15 min, EX x35 min, GT x25 min. 2nd session 1 visit, EX x17 min AARON CUEVAS PTA Dec 24, 2019 08:07
--- NOTE | 2019-12-24 08:51 | PM&R Progress Note ---
Subjective HPI/CC On Admission Date Seen by Provider: Dec 24, 2019 Time Seen by Provider: 09:00 Subjective/Events-last exam Cefdinir maintained for UTI awaiting culture Lung Cancer with meds precludes any energy or activity during the day most of the time per Pt denies any significant pain Overall feels pretty good but weak Fall risk prevention will be aggressively treated Conferred with RN Reviewed therapy notes Checked meds and labs Review of Systems General: Fatigue Neurological: Confusion Objective Exam Vital Signs Vital Signs Date Time Temp Pulse Resp B/P (MAP) Pulse Ox O2 Delivery O2 Flow Rate FiO2 12/25/19 05:40 36.8 90 18 134/63 (86) 95 Room Air Capillary Refill : Less Than 3 SecondsLess Than 3 Seconds General Appearance: No Apparent Distress, WD/WN, Chronically ill HEENT: PERRL/EOMI, Normal ENT Inspection, Pharynx Normal Neck: Full Range of Motion, Normal Inspection, Non Tender, Supple, Carotid Bruit Respiratory: Chest Non Tender, Lungs Clear, No Accessory Muscle Use, No Respiratory Distress, Decreased Breath Sounds Cardiovascular: Regular Rate, Rhythm, No Edema, No Gallop, No JVD, No Murmur, Normal Peripheral Pulses Gastrointestinal: Normal Bowel Sounds, No Organomegaly, No Pulsatile Mass, Non Tender, Soft Back: Normal Inspection, No CVA Tenderness, No Vertebral Tenderness Extremity: Normal Capillary Refill, Normal Inspection, Normal Range of Motion, Non Tender, No Calf Tenderness, No Pedal Edema Neurologic/Psychiatric: Alert, Oriented x3, No Motor/Sensory Deficits, Normal 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 FIM Transfers Therapy Code Descriptions/Definitions Functional Williams Measure: 0=Not Assessed/NA 4=Minimal Assistance 1=Total Assistance 5=Supervision or Setup 2=Maximal Assistance 6=Modified Williams 3=Moderate Assistance 7=Complete IndependenceSCALE: Activities may be completed with or without assistive devices. 3-Ptkxecuyzj-htsjdjs completes the activity by him/herself with no assistance from a helper. 5-Set-up or Clean-up Assistance-helper sets up or cleans up; patient completes a ctivity. Orlinda assists only prior to or following the activity. 4-Supervision or Touching Assistance-helper provides verbal cues and/or touching/steadying and/or contact guard assistance as patient completes activity. Assistance may be provided throughout the activity or intermittently. 3-Partial/Moderate Assistance-helper does LESS THAN HALF the effort. Orlinda lifts, holds or supports trunk or limbs, but provides less than half the effort. 2-Substantial/Maximal Assistance-helper does MORE THAN HALF the effort. Orlinda lifts or holds trunk or limbs and provides more than half the effort. 7-Bdsrtiapj-npbmph does ALL the effort. Patient does none of the effort to complete the activity. Or, the assistance of 2 or more helpers is required for the patient to complete the activity. If activity was not attempted, code reason: 7-Patient Refused. 9-Not Applicable-not attempted and the patient did not perform the activity before the current illness, exacerbation or injury. 10-Not Attempted due to Environmental Limitations-(lack of equipment, weather restraints, etc.). 88-Not Attempted due to Medical Conditions or Safety Concerns. Roll Left to Right (QC): 4 Sit to Lying (QC): 3 (min assist with legs) Sit to Stand (QC): 4 Chair/Wks-ny-Zboru Xfer(QC): 4 Car Transfer (QC): 3 (assist with legs with skilled cues to sequence. ) Gait Training Does the Patient Walk?: Yes Distance: 82 Walk 10 feet (QC): 4 Walk 50 ft with 2 Turns(QC): 4 Walk 150 ft (QC): 88 (unable to walk this distance. ) Walking 10ft/uneven surface-QC: 3 (min assist for safety and balance) Gait Persons Needed: 2 (therapist providing CGA with gait belt, aide following with w/c and IV pole) Gait Assistive Device: FWW Wheelchair Training Does the Pt Use a Wheelchair?: No Stair Training #of Steps: 1 1 Step (curb) (QC): 3 (min assist to step up and down) 4 Steps (QC): 88 12 Steps (QC): 88 Balance Picking up an Object (QC): 88 ADL-Treatment Oral Hygiene (QC): 4 (SBA standing at sink.) On/Off Footwear (QC): 4 (SBA to doff/don slipper socks.) Toileting Hygiene (QC): 4 (CGA) Toilet Transfer (QC): 3 (Min assist.) Assessment/Plan Assessment and Plan Assess & Plan/Chief Complaint Assessment: Fall Debility Poor recall Lung cancer with mets DM insulin dependent UTI acute on chronic Plan: Fall prevention IRF protocol UTI treatment and await UCX Insulin (1) Physical debility (2) Urinary tract infection Status: Acute (3) Metastatic lung carcinoma (4) Dyspnea (5) Insulin dependent diabetes mellitus Status: Chronic (6) Dizziness Status: Acute (7) Fall Status: Acute HELADIO MODI DO Dec 24, 2019 08:51
--- NOTE | 2019-12-24 08:52 | Individualized Plan of Care ---
Individualized Plan of Care Rehab Nursing IPOC Order Admission Date Dec 23, 2019 at 11:16 Current Orders Orders Transfer - Bed/Room/Location (12/23/19 10:45) Admission Order(Inpt,Obs,Sdc) (12/23/19 11:12) Vital Signs: Per Unit Policy ( 08,16,00 (12/23/19 11:12) [place] Hose 09,21 (12/23/19 11:12) Sequential Compression Device Q4H (12/23/19 11:12) Park Activities Coordinator-Inpt Rehab Con (12/23/19 11:12) Rehab Nursing Orders-Ipoc (12/23/19 11:12) Physical Therapy Rehab Orders (12/23/19 11:12) Occupational Therapy Rehab Ord (12/23/19 11:12) Speech Therapy Rehab Orders (12/23/19 11:12) Cbc With Automated Diff (12/24/19 06:00) Comprehensive Metabolic Panel (12/24/19 06:00) Intake & Output 06,14,22 (12/23/19 11:12) Precautions (Aru) (12/23/19 11:12) Weekly Weight WEEK (12/23/19 11:12) Rehab-Intensity Of Therapy (12/23/19 11:12) Initiate Admission Nursing Pro .admission (12/23/19 11:12) Alprazolam Tablet (Xanax Tablet) (12/23/19 11:15) Calcium Carbonate Chew Tablet (Antacid C (12/23/19 11:15) Diphenhydramine Tablet (Benadryl Tablet) (12/23/19 11:15) Docusate Sodium Capsule (Colace Capsule) (12/23/19 21:00) Docusate Sodium Capsule (Colace Capsule) (12/23/19 11:15) Bisacodyl Suppository (Dulcolax Supposit (12/23/19 11:15) Lactulose Oral Solution (Enulose Oral So (12/23/19 11:15) Na Phos/Na Biphos Enema (Fleet Enema Kerwin (12/23/19 11:15) Loperamide Tablet (Imodium Tablet) (12/23/19 11:15) Enoxaparin Injection (Lovenox Injection) (12/23/19 11:15) Melatonin Tablet (Melatonin Tablet) (12/23/19 11:15) Polyethylene Glycol Powder Pkt (Miralax (12/23/19 21:00) Ondansetron Injection (Zofran Injectio (12/23/19 11:15) Ondansetron Oral Dissolve Tab (Zofran (12/23/19 11:15) Senna S Tablet (Senokot S Tablet) (12/23/19 21:00) Initiate Admission Nursing Pro .admission (12/23/19 11:12) General/Regular (12/23/19 Lunch) Cho 60g/M 1snack (16-2000 [place]) (12/23/19 Lunch) Patient Visit (12/23/19 ) Pt Eval Moderate Complexity (12/23/19 ) Functional Activities, Ea 15 (12/23/19 ) Patient Visit (12/23/19 ) Gait Training, Ea 15 Min (12/23/19 ) Patient Visit (12/23/19 ) Therapeutic, Group (12/23/19 ) Accucheck Achs ACHS (12/23/19 17:05) Insulin Aspart (Novolog) (Novolog (Charg (12/23/19 21:00) Acetaminophen Tablet (Tylenol Tablet) (12/23/19 17:15) Atorvastatin Tablet (Lipitor) (12/24/19 09:00) Docusate Sodium Capsule (Colace Capsule) (12/23/19 17:15) Hydrocodone/Apap 5/325 Tablet (Lortab 5 (12/23/19 17:15) Hydrocortisone Suppository (Anusol-Hc Gaines (12/23/19 17:15) Pantoprazole Tablet (Protonix Tablet) (12/24/19 09:00) Polyethylene Glycol Powder Pkt (Miralax (12/23/19 17:15) Tramadol Tablet (Ultram Tablet) (12/23/19 17:15) Cholecalciferol Capsule/Tablet (Vitamin (12/23/19 21:00) Diphenhydramine Tablet (Benadryl Tablet) (12/23/19 21:00) Lactobacillus Acidophilus Cap (Acidophil (12/23/19 21:00) Melatonin Tablet (Melatonin Tablet) (12/23/19 21:00) Pyridoxine Tablet (Vitamin B-6 Tablet) (12/24/19 09:00) Temazepam Capsule (Restoril Capsule) (12/23/19 21:00) Patient May Use Own Med,Single (Patient (12/23/19 17:30) (Nf) Cranberry Extract (Cranberry) (12/24/19 09:00) Cefdinir Capsule (Omnicef Capsule) (12/24/19 09:00) Manual Differential (12/24/19 06:45) Patient Visit (12/24/19 ) Speech Sound Lang Comp (12/24/19 ) Patient Visit (12/24/19 ) Gait Training, Ea 15 Min (12/24/19 ) Exercise Therap, Ea 15 Min (12/24/19 ) Functional Activities, Ea 15 (12/24/19 ) Rehab Nursing Orders: Ongoing Assess. of Cognitive Status, Ongoing Assess. of Function Status, Bladder Management, Bladder Scan, Bowel Training, Disease Management & Educaiton, DVT Prophylaxis, Fall Prevention, Fluid/Electrolyte/Nutrition Mgmt, Infection Prevention, Medication Management & Education, Management of Risks & Complications, Pain Management, Patient/Family Support, Safety Management Intensity of Therapy to be met Patient to be seen: Min.3h per day/5 of 7d PT IPOC Problem List: Activity Tolerance, Functional Strength, Safety, Balance, Gait, Transfer, Bed Mobility Treatment Plan: Continue Plan of Care Bed Mobility, Education, Functional Activity Rosanna, Functional Strength, Group Therapy, Gait, Safety, Therapeutic Exercise, Transfers Treatment Duration: Jan 06, 2020 Frequency: At least 5 of 7 days/Wk (IRF) Estimated Hrs Per Day: 1.5 hours per day OT IPOC Problems: Decreased Activ Tolerance, Decreased UE Strength, Dependent Transfers, Impaired Bed Mobility, Impaired Funct Balance, Impaired I ADL's, Impaired Self-Care Skills OT Treatment, Training and Edu: Yes Plan of Care: ADL Retraining, Caregiver Training, Functional Mobility, Group Exercise/Act as Ind, UE Funct Exercise/Act Treatment Duration: Jan 10, 2020 Frequency: At least 5 of 7 days/Wk (IRF) Estimated Hrs Per Day: 1.[address] IPOC Speech Therapy Treatment Plan: Continue Plan of Care Treatment Duration: Dec 24, 2019 Frequency: Modified Program (IRF) Estimated Hrs Per Day: Other Park Activities Coordinator/Case Mgmt Park Activities Coordinator/Case Managemen: Discharge Planning Dietitian/Stunner Animal Dietitian/Stunner Animal to monitor nutritional status and make changes and/or recommendations as needed and work with speech pathology on dietary upgrades as the occur. Physician IPOC Medical Issues being managed closely and that require the 24 hour availability of a physician: Lung cancer with mets and UTI at high risk for decompensation Medical Issues: Bowel/Bladder Function, DVT Prophylaxis, Falls Precautions, Fluid/Electrolyte/Nutrition Balance, Infection Protection, Pain Management Brief Synthesis of Preadmission Screen, Post-Admission Evaluation, and Therapy Evaluations: PT OT ST will work on fall prevention and building stamina and increasing success at home with Medical Prognosis: Good Anticipated Length of Stay: 7 days HELADIO MODI DO Dec 24, 2019 08:52
[2019-12-24] MEDS: PYRIDOXINE (VITAMIN B-6) 50 MG TABLET PO SCH (09:03)
[2019-12-24] MEDS: CEFDINIR 300 MG (OMNICEF) CAP PO SCH ×2 (09:03→21:21)
[2019-12-24] MEDS: VITAMIN D3 25 MCG (1,000 UNITS) TABLET PO SCH ×2 (09:03→21:21)
[2019-12-24] MEDS: LACTOBACILLUS ACIDOPHILUS (PROBIOTIC) CAPSULE PO SCH ×2 (09:04→21:21)
[2019-12-24] MEDS: polyethylene glycoL POWDER 17 GM (MIRALAX) PACK PO SCH ×2 (09:05→20:05)
[2019-12-24] MEDS: DOCUSATE SODIUM 100 MG (COLACE) CAP PO SCH ×2 (09:05→20:05)
[2019-12-24] MEDS: PANTOPRAZOLE 40 MG (PROTONIX) TAB PO SCH (09:05)
[2019-12-24] MEDS: SENNA W/DOCUSATE (SENOKOT S) TABLET PO SCH ×2 (09:14→20:06)
--- NOTE | 2019-12-24 11:11 | Occupational Ther Daily Note ---
OT Current Status-Daily Note Subjective Pt resting in bed, states she is tired, but agrees to therapy. Pt has no c/o pain. ADL-Treatment Therapy Code Descriptions/Definitions Functional [place] Measure: 0=Not Assessed/NA 4=Minimal Assistance 1=Total Assistance 5=Supervision or Setup 2=Maximal Assistance 6=Modified [place] 3=Moderate Assistance 7=Complete IndependenceSCALE: Activities may be completed with or without assistive devices. 8-Xisyvaucfy-zmtlnzy completes the activity by him/herself with no assistance from a helper. 5-Set-up or Clean-up Assistance-helper sets up or cleans up; patient completes activity. [place] assists only prior to or following the activity. 4-Supervision or Touching Assistance-helper provides verbal cues and/or touching/steadying and/or contact guard assistance as patient completes activity. Assistance may be provided throughout the activity or intermittently. 3-Partial/Moderate Assistance-helper does LESS THAN HALF the effort. [place] lifts, holds or supports trunk or limbs, but provides less than half the effort. 2-Substantial/Maximal Assistance-helper does MORE THAN HALF the effort. [place] lifts or holds trunk or limbs and provides more than half the effort. 6-Mdhbmxcqj-xfwczq does ALL the effort. Patient does none of the effort to complete the activity. Or, the assistance of 2 or more helpers is required for the patient to complete the activity. If activity was not attempted, code reason: 7-Patient Refused. 9-Not Applicable-not attempted and the patient did not perform the activity before the current illness, exacerbation or injury. 10-Not Attempted due to Environmental Limitations-(lack of equipment, weather restraints, etc.). 88-Not Attempted due to Medical Conditions or Safety Concerns. Oral Hygiene (QC): 5 (Pt completed grooming tasks (oral hygiene and brushing hair) with set up while seated at sink.) Shower/Bathe Self (QC): 4 (Pt transferred to shower with min assist for safety using grab bars for balance. Seated bathing completed using hand held shower. Pt able to wash/dry all areas. Stood with CGA for balance while washing buttocks. ) Upper Body Dressing (QC): 4 (Pt completed UE dressing with SBA while seated.) Lower Body Dressing (QC): 3 (Pt able to thread left LE into Depends, but requires assist for right LE. Stood with CGA for balance while completing pant hike.) On/Off Footwear: 3 (Pt able to doff/don socks, but requires assist for RAHUL hose.) Toileting Hygiene (QC): 4 (CGA for balance during clothing management) Toilet Transfer (QC): 4 (CGA using grab bars for balance. Skilled cues for transfer technique and safety) Pt has decreased activity tolerance and requires occasional rest breaks throughout treatment. Pt returned to bed, resting with needs met after session. Education OT Patient Education: Safety issues Teaching Recipient: Patient Teaching Methods: Discussion Response to Teaching: Reinforcement Needed OT Short Term Goals Short Term Goals Time Frame: Jan 01, 2020 Toileting hygiene: 4 Shower/bathe self: 4 Upper body dressin Lower body dressin Putting on/taking off footwear: 4 OT Sand Technician Goals Alf Goals Time Frame: Jan 10, 2020 Eating (QC): 6 Oral Hygiene (QC): 6 Toileting Hygiene (QC): 6 Shower/Bathe Self (QC): 6 Upper Body Dressing (QC): 6 Lower Body Dressing (QC): 6 On/Off Footwear (QC): 6 Additional Goals: 1-Demonstrate ADL Tasks, 2-Verbalize Understanding, 3- ImproveStrength/Rosanna 1=Demonstrate adherence to instructed precautions during ADL tasks. 2=Patient will verbalize/demonstrate understanding of assistive device s/modifications for ADL. 3=Patient will improve strength/tolerance for activity to enable patient to perform ADL's. OT Education/Plan Discharge Recommendations Plan/Recommendations: Continue POC Treatment Plan/Plan of Care Patient would benefit from OT for education, treatment and training to promote independence in ADL's, mobility, safety and/or upper extremity function for ADL's. Plan of Care: ADL Retraining, Caregiver Training, Functional Mobility, Group Exercise/Act as Ind, UE Funct Exercise/Act Treatment Duration: Jan 10, 2020 Frequency: At least 5 of 7 days/Wk (IRF) Estimated Hrs Per Day: 1.5 hours per day Agreement: Yes Rehab Potential: Good Time/GCodes Start Time: 09:30 Stop Time: 10:40 Total Time Billed (hr/min): 70 Billed Treatment Time 1 visit, ADLx5(70minutes) TA RUIZ OT Dec 24, 2019 11:11
[2019-12-24] MEDS: ENOXAPARIN 40 MG/0.4 ML (LOVENOX) SYR SC SCH (11:15)
--- NOTE | 2019-12-24 11:50 | Occupational Ther Daily Note ---
OT Current Status-Daily Note Subjective t, sitting in bathroom. Pt agrees to therapy. No c/o pain. Mental Status/Objective Patient Orientation: Person, Place, Time, Situation ADL-Treatment Therapy Code Descriptions/Definitions Functional [place] Measure: 0=Not Assessed/NA 4=Minimal Assistance 1=Total Assistance 5=Supervision or Setup 2=Maximal Assistance 6=Modified [place] 3=Moderate Assistance 7=Complete IndependenceSCALE: Activities may be completed with or without assistive devices. 3-Hmwsdjtlqt-baaqddn completes the activity by him/herself with no assistance from a helper. 5-Set-up or Clean-up Assistance-helper sets up or cleans up; patient completes activity. [place] assists only prior to or following the activity. 4-Supervision or Touching Assistance-helper provides verbal cues and/or touching/steadying and/or contact guard assistance as patient completes activity. Assistance may be provided throughout the activity or intermittently. 3-Partial/Moderate Assistance-helper does LESS THAN HALF the effort. [place] lifts, holds or supports trunk or limbs, but provides less than half the effort. 2-Substantial/Maximal Assistance-helper does MORE THAN HALF the effort. [place] lifts or holds trunk or limbs and provides more than half the effort. 0-Wsbyslnup-ofgqkn does ALL the effort. Patient does none of the effort to complete the activity. Or, the assistance of 2 or more helpers is required for the patient to complete the activity. If activity was not attempted, code reason: 7-Patient Refused. 9-Not Applicable-not attempted and the patient did not perform the activity before the current illness, exacerbation or injury. 10-Not Attempted due to Environmental Limitations-(lack of equipment, weather restraints, etc.). 88-Not Attempted due to Medical Conditions or Safety Concerns. Toileting Hygiene (QC): 4 (Pt completed hygiene sitting on toilet and SBA to complete clothing manipulation in standing.) Toilet Transfer (QC): 4 (SBA for toilet transfer using FWW and grabbar.) Pt ambulated to sink and complete handwashing after toileting with SBA using FWW for stability. After therapy, DELIMER in room and took over care. All needs met in room. OT Short Term Goals Short Term Goals Time Frame: Jan 01, 2020 Toileting hygiene: 4 Shower/bathe self: 4 Upper body dressin Lower body dressin Putting on/taking off footwear: 4 OT Prison Goals Beverage Server Goals Time Frame: Jan 10, 2020 Eating (QC): 6 Oral Hygiene (QC): 6 Toileting Hygiene (QC): 6 Shower/Bathe Self (QC): 6 Upper Body Dressing (QC): 6 Lower Body Dressing (QC): 6 On/Off Footwear (QC): 6 Additional Goals: 1-Demonstrate ADL Tasks, 2-Verbalize Understanding, 3- ImproveStrength/Rosanna 1=Demonstrate adherence to instructed precautions during ADL tasks. 2=Patient will verbalize/demonstrate understanding of assistive devices/modifications for ADL. 3=Patient will improve strength/tolerance for activity to enable patient to perform ADL's. OT Education/Plan Problem List/Assessment Assessment: Decreased Activ Tolerance, Decreased UE Strength, Impaired Self- Care Skills Discharge Recommendations Plan/Recommendations: Continue POC Treatment Plan/Plan of Care Patient would benefit from OT for education, treatment and training to promote independence in ADL's, mobility, safety and/or upper extremity function for ADL's. Plan of Care: ADL Retraining, Caregiver Training, Functional Mobility, Group Exercise/Act as Ind, UE Funct Exercise/Act Treatment Duration: Jan 10, 2020 Frequency: At least 5 of 7 days/Wk (IRF) Estimated Hrs Per Day: 1.5 hours per day Agreement: Yes Rehab Potential: Good Time/GCodes Start Time: 11:20 Stop Time: 11:30 Total Time Billed (hr/min): 10 Billed Treatment Time 1 visit-ADL 1 (10 min) BAL RESENDEZ Dec 24, 2019 11:50
--- NOTE | 2019-12-24 12:44 | Occupational Ther Daily Note ---
OT Current Status-Daily Note Subjective Pt in bed, agrees to therapy. No reports of pain. ADL-Treatment Pt supine to sit with SBA. Scoots to EOB with SBA. Sit to stand and transfer to chair with supervision using FWW, cues for safety. When meal tray was placed in front of pt, she was able to manage containers and feed self without assist. Pt sitting in chair eating lunch with other needs met after session. Therapy Code Descriptions/Definitions Functional [place] Measure: 0=Not Assessed/NA 4=Minimal Assistance 1=Total Assistance 5=Supervision or Setup 2=Maximal Assistance 6=Modified [place] 3=Moderate Assistance 7=Complete IndependenceSCALE: Activities may be completed with or without assistive devices. 3-Scpeavazii-fxbucor completes the activity by him/herself with no assistance from a helper. 5-Set-up or Clean-up Assistance-helper sets up or cleans up; patient completes activity. [place] assists only prior to or following the activity. 4-Supervision or Touching Assistance-helper provides verbal cues and/or touching/steadying and/or contact guard assistance as patient completes activity. Assistance may be provided throughout the activity or intermittently. 3-Partial/Moderate Assistance-helper does LESS THAN HALF the effort. [place] lifts, holds or supports trunk or limbs, but provides less than half the effort. 2-Substantial/Maximal Assistance-helper does MORE THAN HALF the effort. [place] lifts or holds trunk or limbs and provides more than half the effort. 3-Zvcctfoke-rhvgky does ALL the effort. Patient does none of the effort to complete the activity. Or, the assistance of 2 or more helpers is required for the patient to complete the activity. If activity was not attempted, code reason: 7-Patient Refused. 9-Not Applicable-not attempted and the patient did not perform the activity before the current illness, exacerbation or injury. 10-Not Attempted due to Environmental Limitations-(lack of equipment, weather restraints, etc.). 88-Not Attempted due to Medical Conditions or Safety Concerns. Eating (QC): 6 OT Short Term Goals Short Term Goals Time Frame: Jan 01, 2020 Toileting hygiene: 4 Shower/bathe self: 4 Upper body dressin Lower body dressin Putting on/taking off footwear: 4 OT Roll Builder Goals [place] Goals Time Frame: Jan 10, 2020 Eating (QC): 6 Oral Hygiene (QC): 6 Toileting Hygiene (QC): 6 Shower/Bathe Self (QC): 6 Upper Body Dressing (QC): 6 Lower Body Dressing (QC): 6 On/Off Footwear (QC): 6 Additional Goals: 1-Demonstrate ADL Tasks, 2-Verbalize Understanding, 3- ImproveStrength/Rosanna 1=Demonstrate adherence to instructed precautions during ADL tasks. 2=Patient will verbalize/demonstrate understanding of assistive devices/modifications for ADL. 3=Patient will improve strength/tolerance for activity to enable patient to perform ADL's. OT Education/Plan Discharge Recommendations Plan/Recommendations: Continue POC Treatment Plan/Plan of Care Patient would benefit from OT for education, treatment and training to promote independence in ADL's, mobility, safety and/or upper extremity function for A DL's. Plan of Care: ADL Retraining, Caregiver Training, Functional Mobility, Group Exercise/Act as Ind, UE Funct Exercise/Act Treatment Duration: Jan 10, 2020 Frequency: At least 5 of 7 days/Wk (IRF) Estimated Hrs Per Day: 1.5 hours per day Agreement: Yes Rehab Potential: Good Time/GCodes Start Time: 11:47 Stop Time: 11:57 Total Time Billed (hr/min): 10 Billed Treatment Time 1 visit, ADL(10minutes) TA RUIZ OT Dec 24, 2019 12:44
--- NOTE | 2019-12-24 13:56 | NUR ---
Pt sleeping during Communion rounds.
--- NOTE | 2019-12-24 14:46 | ST Cognitive Linguistic Eval ---
Speech Evaluation-General Medical Diagnosis debility Onset Date: Dec 23, 2019 Therapy Diagnosis Therapy Diagnosis: Cognitive-communication Precautions Precautions: None Referral Referring Physician: Dr. Adhikari Reason for Referral: Evaluation/Treatment Medical History Pertinent Medical History: Arthritis, CAD, DM, Diverticulitis, GERD, HTN, PVD Reviewed History: Yes Social History Current Living Status: Spouse Speech PLF-Current Status Prior Level of Function Patient reported having no deficits in cognition prior to hospital stay. Subjective Patient was alert, pleasant, and cooperative for all evaluation tasks. Patient reported that she was feeling very tired, however better than yesterday. Patient sat upright in her bed for the duration of the evaluation. Language Eval: Auditory Comprehends Simple Yes/No Ques: Functional Indent/Objects [place]: Functional Ident/Pics in [place]: Functional Follows 1-Step Commands: Functional Follows Complex Directions: Mild Follows General Conversations: Functional Language Eval: Verbal Language Completes Spontaneous Greeting: Functional Produces Auto, Serial Info: Functional Imitates Simple Words/Phrases: Functional Word Finding: Functional Requests Basic Needs: Functional States Basic Personal Info: Functional Expresses Complex Ideas: Functional Objective Cognitive Domain Attention: WNL Memory: WNL Problem Solving: Functional Executive Functions: WNL Visuospatial Skills: WNL Composite Severity Rating: WNL Clock Drawing Severity Rating: WNL Objective Formal/Standardized Tests [facility] Mental Status (UMS) Examination was administered. Results The patient was administered the SLUMS and scored 27/30 which falls within normal limits of cognitive functions. Oral Motor/Speech Production Within functional limits. Impression The patient is an 84-year-old woman who was admitted to the ILU s/p debility. The patient was administered the SLUMS and scored 27/30 which falls within normal limits of cognitive function. The patient was noted to require mild rep etition of the instructions, however answered correctly to each. The patient does not require skilled ST at this time as evidenced by functional skills in cognitive-communication and effectively communicating her wants/needs. Speech Patient Assess Expression of Ideas/Wants: Expression (4) Understanding Verbal Content: Usually Understands (3) Brief Interview-Mental Status: Yes Repetition of Three Words: Three (3) Temporal Orientation: Year: Correct (3) Temporal Orientation: Month: Accurate within 5 days(2) Temporal Orientation: Day: Correct (1) Recall : Wear to say "Sock": Yes, no cue required (2) Recall : Color: Yes, no cue required (2) Recall : Bed: No, could not recall (0) Memory/Recall Ability: Current season, That he or she is in a hsp/hsp unit Speech-Plan Patient/Family Goals Patient/Family Goals: Patient reports wishing to return home to prior level of independence and mobility. Treatment Plan Speech Therapy Treatment Plan: Discontinue ST Treatment Duration: Dec 24, 2019 Frequency: 1 time per week Estimated Hrs Per Day: .25 hour per day Rehab Potential: Good Barriers to Learning: Current medical status Pt/Family Agrees to Plan: Yes Safety Risks/Education Teaching Recipient: Patient Teaching Methods: Demonstration Response to Teaching: Verbalize Understanding Education Topics Provided: Evaluation tasks and areas of cognition being assessed Time Speech Therapy Time In: 11:30 Speech Therapy Time Out: 11:45 Total Billed Time: 15 Billed Treatment Time 1ANH BETHANIA ST Dec 24, 2019 14:46
[2019-12-24] MEDS: ACETAMINOPHEN 500 MG TAB (TYLENOL) PO PRN (16:30)
[2019-12-24 18:00] VITALS: BP 113/66
[2019-12-24] MEDS: diphenhydrAMINE 25 MG TAB (BENADRYL) PO SCH (21:21)
[2019-12-24] MEDS: TEMAZEPAM 15 MG (RESTORIL) CAP PO SCH (21:23)
[2019-12-24] MEDS: MELATONIN 3 MG TABLET PO SCH (21:28)
[2019-12-25 05:40] VITALS: BP 134/63
[2019-12-25] MEDS: inSUlin ASPART (NovoLOG) 1 UNIT/0.01 ML (CHARGE PER UNIT) SC SCH ×4 (06:16→21:16)
--- NOTE | 2019-12-25 09:11 | Physical Therapy Daily Note ---
PT Daily Note-Current Subjective Pt L sidelying in bed upon arrival. Pt agrees to PT. Pain Location: No Pain Reported Mental Status Patient Orientation: Person, Place, Situation Transfers SCALE: Activities may be completed with or without assistive devices. 3-Mqouglkdmi-fjwqelr completes the activity by him/herself with no assistance from a helper. 5-Set-up or Clean-up Assistance-helper sets up or cleans up; patient completes activity. Mcdonough assists only prior to or following the activity. 4-Supervision or Touching Assistance-helper provides verbal cues and/or touching/steadying and/or contact guard assistance as patient completes activity. Assistance may be provided throughout the activity or intermittently. 3-Partial/Moderate Assistance-helper does LESS THAN HALF the effort. Mcdonough lifts, holds or supports trunk or limbs, but provides less than half the effort. 2-Substantial/Maximal Assistance-helper does MORE THAN HALF the effort. Mcdonough lifts or holds trunk or limbs and provides more than half the effort. 5-Kzvgwitej-uwvisc does ALL the effort. Patient does none of the effort to complete the activity. Or, the assistance of 2 or more helpers is required for the patient to complete the activity. If activity was not attempted, code reason: 7-Patient Refused. 9-Not Applicable-not attempted and the patient did not perform the activity before the current illness, exacerbation or injury. 10-Not Attempted due to Environmental Limitations-(lack of equipment, weather restraints, etc.). 88-Not Attempted due to Medical Conditions or Safety Concerns. Roll Left & Right (QC): 5 Sit to Lying (QC): 5 Lying to Sitting/Side of Bed(Q: 5 Sit to Stand (QC): 5 Chair/Hzu-vg-Jkpst Xfer(QC): 5 Toilet Transfer (QC): 5 Weight Bearing Right Lower Extremity: Right Full Weight Bearing Left Lower Extremity: Left Full Weight Bearing Gait Training Does the Patient Walk?: Yes Distance: 90', 90', 60', 90' Walk 10 feet (QC): 5 Walk 50 ft with 2 Turns(QC): 5 Walk 150 ft (QC): 5 Gait Persons Needed: 1 Gait Assistive Device: FWW Pt fatigues quickly. Pt will sit everytime pt is asked if tired but does not demonstrate fatigue. Pt walks farther when not asked but follow with [facility]. Wheelchair Training Does the Pt Use a Wheelchair?: No Exercises Supine Ex: Ankle pumps, Quad Set, Glut sets, Hip abd/add Supine Reps: 10 Seated Therapy Exercises: Ankle pumps, Long arc quads, Hip flexion, Kicking activity Seated Reps: 10 NuStep Minutes: 7 NuStep Workload: 2 Treatments Pt rolls over to Supine & completes Supine Ex in bed. Pt then transfers to EOB then standing. Pt uses restroom followed by Assessment Current Status: Fair Progress Pt needs encouragement to continue to push self for more progress everyday. Pt sometimes self-limits, reporting feeling tired from start to finish. Pt reports inactive life style, sleeps a lot. PT Short Term Goals Short Term Goals Time Frame: Dec 30, 2019 Sit to lyin Lying to sitting on side of be: 5 Sit to stand: 4 Walk 10 feet: 4 Walk 50 feet with two turns: 4 Walk 150 feet: 4 PT Film Librarian Goals Film Librarian Goals PT Nursing Home Goals Time Frame: Jan 06, 2020 Roll Left & Right (QC): 6 Sit to Lying (QC): 6 Lying-Sitting on Side/Bed(QC): 6 Sit to Stand (QC): 6 Chair/Xmq-ha-Nfazf Xfer(QC): 6 Toilet Transfer (QC): 6 Car Transfer (QC): 5 Does the Patient Walk: Yes Walk 10 feet (QC): 6 Walk 50ft with 2 Turns (QC): 6 Walk 150 ft (QC): 6 Walking 10ft on Uneven Surface: 5 1 Step (curb) (QC): 5 4 Steps (QC): 4 12 Steps (QC): 9 Picking up an Object (QC): 9 Does the Pt use WC or Scooter?: No PT Plan Problem List Problem List: Activity Tolerance, Functional Strength, Gait, Transfer Treatment/Plan Treatment Plan: Continue Plan of Care Treatment Plan: Bed Mobility, Education, Functional Activity Rosanna, Functional Strength, Group Therapy, Gait, Safety, Therapeutic Exercise, Transfers Treatment Duration: Jan 06, 2020 Frequency: At least 5 of 7 days/Wk (IRF) Estimated Hrs Per Day: 1.5 hours per day Patient and/or Family Agrees t: Yes Safety Risks/Education Patient Education: Gait Training, Transfer Techniques, Correct Positioning, Safety Issues Teaching Recipient: Patient Teaching Methods: Discussion Response to Teaching: Verbalize Understanding Time/GCodes Time In: 800 Time Out: 900 Total Billed Treatment Time: 60 Total Billed Treatment 1, GT (20m), FA (15m) & EX x2 (25m) YVES WATSON APPLIANCE LINE ASSEMBLER Dec 25, 2019 09:11
[2019-12-25] MEDS: PANTOPRAZOLE 40 MG (PROTONIX) TAB PO SCH (09:20)
[2019-12-25] MEDS: LACTOBACILLUS ACIDOPHILUS (PROBIOTIC) CAPSULE PO SCH ×2 (09:20→20:00)
[2019-12-25] MEDS: CEFDINIR 300 MG (OMNICEF) CAP PO SCH ×2 (09:20→20:00)
[2019-12-25] MEDS: DOCUSATE SODIUM 100 MG (COLACE) CAP PO SCH ×2 (09:20→20:00)
[2019-12-25] MEDS: PYRIDOXINE (VITAMIN B-6) 50 MG TABLET PO SCH (09:20)
[2019-12-25] MEDS: VITAMIN D3 25 MCG (1,000 UNITS) TABLET PO SCH ×2 (09:20→20:00)
[2019-12-25] MEDS: polyethylene glycoL POWDER 17 GM (MIRALAX) PACK PO SCH ×2 (09:23→20:00)
[2019-12-25] MEDS: SENNA W/DOCUSATE (SENOKOT S) TABLET PO SCH ×2 (09:23→20:01)
--- NOTE | 2019-12-25 11:03 | Occupational Ther Daily Note ---
OT Current Status-Daily Note Subjective Pt in bed, states she is tired, but agrees to therapy. No reports of pain ADL-Treatment Pt supine to sit using bed rail. Pt performed gait to restroom with FWW. Transfer to walk in shower with SBA using grab bars, cues for safety. Pt doffed clothing without assist. Seated bathing completed using hand held shower. Pt able to wash/dry all areas with SBA for balance while standing to wash buttocks. Don pullover gown with set up. Pt able to thread bilateral LE into Depends. Stood with supervision for balance. Pt donned slip on shoes with set up. Grooming tasks completed standing at sink. Pt brushed teeth and combed hair with set up. Transfer to chair with FWW, no LOB noted. Therapy Code Descriptions/Definitions Functional [place] Measure: 0=Not Assessed/NA 4=Minimal Assistance 1=Total Assistance 5=Supervision or Setup 2=Maximal Assistance 6=Modified [place] 3=Moderate Assistance 7=Complete IndependenceSCALE: Activities may be completed with or without assistive devices. 2-Uobmwdklhs-vuykqgd completes the activity by him/herself with no assistance from a helper. 5-Set-up or Clean-up Assistance-helper sets up or cleans up; patient completes activity. Miracle assists only prior to or following the activity. 4-Supervision or Touching Assistance-helper provides verbal cues and/or touching/steadying and/or contact guard assistance as patient completes activity. Assistance may be provided throughout the activity or intermittently. 3-Partial/Moderate Assistance-helper does LESS THAN HALF the effort. Miracle lifts, holds or supports trunk or limbs, but provides less than half the effort. 2-Substantial/Maximal Assistance-helper does MORE THAN HALF the effort. Miracle lifts or holds trunk or limbs and provides more than half the effort. 0-Fpghrtnhr-lalxim does ALL the effort. Patient does none of the effort to complete the activity. Or, the assistance of 2 or more helpers is required for the patient to complete the activity. If activity was not attempted, code reason: 7-Patient Refused. 9-Not Applicable-not attempted and the patient did not perform the activity before the current illness, exacerbation or injury. 10-Not Attempted due to Environmental Limitations-(lack of equipment, weather restraints, etc.). 88-Not Attempted due to Medical Conditions or Safety Concerns. Oral Hygiene (QC): 5 Shower/Bathe Self (QC): 4 Upper Body Dressing (QC): 5 Lower Body Dressing (QC): 4 Other Treatment Pt completed bilateral UE exercises to increase strength needed for ADLs and transfers. Pt performed three exercises x10 reps with mild resistance (yellow) theraband. Rest breaks between exercises. Skilled cues for proper exercise technique. Pt transferred to bed and completed sit to supine with SBA. Pt resting in bed with needs met after session. Education OT Patient Education: Safety issues Teaching Recipient: Patient Teaching Methods: Discussion Response to Teaching: Verbalize Understanding OT Short Term Goals Short Term Goals Time Frame: Jan 01, 2020 Toileting hygiene: 4 Shower/bathe self: 4 Upper body dressin Lower body dressin Putting on/taking off footwear: 4 OT Custodial Goals Membership Assistant Goals Time Frame: Jan 10, 2020 Eating (QC): 6 Oral Hygiene (QC): 6 Toileting Hygiene (QC): 6 Shower/Bathe Self (QC): 6 Upper Body Dressing (QC): 6 Lower Body Dressing (QC): 6 On/Off Footwear (QC): 6 Additional Goals: 1-Demonstrate ADL Tasks, 2-Verbalize Understanding, 3-ImproveStrength/Rosanna 1=Demonstrate adherence to instructed precautions during ADL tasks. 2=Patient will verbalize/demonstrate understanding of assistive devices/modifications for ADL. 3=Patient will improve strength/tolerance for activity to enable patient to perform ADL's. OT Education/Plan Discharge Recommendations Plan/Recommendations: Continue POC Treatment Plan/Plan of Care Patient would benefit from OT for education, treatment and training to promote i ndependence in ADL's, mobility, safety and/or upper extremity function for ADL's. Plan of Care: ADL Retraining, Caregiver Training, Functional Mobility, Group Exercise/Act as Ind, UE Funct Exercise/Act Treatment Duration: Jan 10, 2020 Frequency: At least 5 of 7 days/Wk (IRF) Estimated Hrs Per Day: 1.5 hours per day Agreement: Yes Rehab Potential: Good Time/GCodes Start Time: 09:00 Stop Time: 10:00 Total Time Billed (hr/min): 60 Billed Treatment Time 1 visit, ADLx3(45minutes), EX(15minutes) TA RUIZ OT Dec 25, 2019 11:03
--- NOTE | 2019-12-25 11:22 | PM&R Progress Note ---
Subjective HPI/CC On Admission Date Seen by Provider: Dec 25, 2019 Time Seen by Provider: 10:00 Subjective/Events-last exam Set DC for 3-2-20 Urine culture still pending Sleeps a lot up to 4hrs at a time No complaints Bowels moved yesterday Speech therapy thinks she is doing well cognitively Fall risk prevention will be aggressively treated Conferred with RN Reviewed therapy notes Checked meds and labs Review of Systems General: Fatigue Neurological: Weakness Objective Exam Vital Signs Vital Signs Date Time Temp Pulse Resp B/P (MAP) Pulse Ox O2 Delivery O2 Flow Rate FiO2 12/26/19 18:00 37.0 101 20 123/70 (87) 93 Room Air Capillary Refill : Less Than 3 SecondsLess Than 3 Seconds General Appearance: No Apparent Distress, WD/WN, Chronically ill HEENT: PERRL/EOMI, Normal ENT Inspection, Pharynx Normal Neck: Full Range of Motion, Normal Inspection, Non Tender, Supple, Carotid Bruit Respiratory: Chest Non Tender, Lungs Clear, No Accessory Muscle Use, No Respiratory Distress, Decreased Breath Sounds Cardiovascular: Regular Rate, Rhythm, No Edema, No Gallop, No JVD, No Murmur, Normal Peripheral Pulses Gastrointestinal: Normal Bowel Sounds, No Organomegaly, No Pulsatile Mass, Non Tender, Soft Back: Normal Inspection, No CVA Tenderness, No Vertebral Tenderness Extremity: Normal Capillary Refill, Normal Inspection, Normal Range of Motion, Non Tender, No Calf Tenderness, No Pedal Edema Neurologic/Psychiatric: Alert, Oriented x3, No Motor/Sensory Deficits, Normal Mood/Affect, environmental health officer II-XII Norm as Tested, Disoriented (subtle poor recall) Skin: Normal Color, Warm/Dry Lymphatic: No Adenopathy Results/Procedures Lab Patient resulted labs reviewed. FIM Transfers Therapy Code Descriptions/Definitions Functional [place] Measure: 0=Not Assessed/NA 4=Minimal Assistance 1=Total Assistance 5=Supervision or Setup 2=Maximal Assistance 6=Modified [place] 3=Moderate Assistance 7=Complete IndependenceSCALE: Activities may be completed with or without assistive devices. 8-Kcyebqahjz-tvpvtqd completes the activity by him/herself with no assistance from a helper. 5-Set-up or Clean-up Assistance-helper sets up or cleans up; patient completes activity. Fenton assists only prior to or following the activity. 4-Supervision or Touching Assistance-helper provides verbal cues and/or touching/steadying and/or contact guard assistance as patient completes activity. Assistance may be provided throughout the activity or intermittently. 3-Partial/Moderate Assistance-helper does LESS THAN HALF the effort. Fenton lifts, holds or supports trunk or limbs, but provides less than half the effort. 2-Substantial/Maximal Assistance-helper does MORE THAN HALF the effort. Fenton lifts or holds trunk or limbs and provides more than half the effort. 7-Riequdnof-zxqroj does ALL the effort. Patient does none of the effort to complete the activity. Or, the assistance of 2 or more helpers is required for the patient to complete the activity. If activity was not attempted, code reason: 7-Patient Refused. 9-Not Applicable-not attempted and the patient did not perform the activity before the current illness, exacerbation or injury. 10-Not Attempted due to Environmental Limitations-(lack of equipment, weather restraints, etc.). 88-Not Attempted due to Medical Conditions or Safety Concerns. Roll Left to Right (QC): 5 Sit to Lying (QC): 5 Sit to Stand (QC): 5 Chair/Raz-io-Jsfqk Xfer(QC): 5 Car Transfer (QC): 3 (assist with legs with skilled cues to sequence. ) Gait Training Does the Patient Walk?: Yes Distance: 90', 90', 60', 90' Walk 10 feet (QC): 5 Walk 50 ft with 2 Turns(QC): 5 Walk 150 ft (QC): 5 Walking 10ft/uneven surface-QC: 3 (min assist for safety and balance) Gait Persons Needed: 1 Gait Assistive Device: FWW Wheelchair Training Does the Pt Use a Wheelchair?: No Stair Training #of Steps: 1 1 Step (curb) (QC): 3 (min assist to step up and down) 4 Steps (QC): 88 12 Steps (QC): 88 Balance Picking up an Object (QC): 88 ADL-Treatment Eating (QC): 6 Oral Hygiene (QC): 5 Shower/Bathe Self (QC): 4 Upper Body Dressing (QC): 5 Lower Body Dressing (QC): 4 On/Off Footwear (QC): 3 (Pt able to doff/don socks, but requires assist for RAHUL hose.) Toileting Hygiene (QC): 4 (Pt completed hygiene sitting on toilet and SBA to complete clothing manipulation in standing.) Toilet Transfer (QC): 4 (SBA for toilet transfer using FWW and grabbar.) Assessment/Plan Assessment and Plan Assess & Plan/Chief Complaint Assessment: Fall Debility Poor recall Lung cancer with mets DM insulin dependent UTI acute on chronic Plan: Fall prevention IRF protocol UTI treatment and await UCX Insulin (1) Physical debility (2) Urinary tract infection Status: Acute (3) Metastatic lung carcinoma (4) Dyspnea (5) Insulin dependent diabetes mellitus Status: Chronic (6) Dizziness Status: Acute (7) Fall Status: Acute HELADIO MODI DO Dec 25, 2019 11:22
[2019-12-25] MEDS: ENOXAPARIN 40 MG/0.4 ML (LOVENOX) SYR SC SCH (12:35)
--- NOTE | 2019-12-25 15:14 | Therapy Group Daily Note ---
Therapy Daily Group Note Patient Education Topic Exercises Exercises LE Seated Exercise, UE Exercise Session Ratio (pt:therapist): 3:1 Goal of Session: Education on ARU Expectations, UE/LE Strengthing Goal Met for this Session: Yes Pt Benefit of Group: Contributions to Others, F/U Use of Strategies @Home, Increased Functional Safety, Increased Functional Strength, Improved Cognition, Recognition of Peers, Socialization Other/Notes Pt ambulated using FWW to [facility] area for OT/PT group. Group consisted of introductions (name, place living, blessings of nature), socialization, pt led UE/LE seated exercises and benefits of exercise. Pt introduced self appropriately and actively listened to peers. Pt was able to lead one exercise for group then completed other exercises without difficulty during seated UE/LE exercises. Pt acknowledge understanding of educational topic by giving own personal stories and completed each exercise with good technique. After group, pt lying in bed with call light/phone in reach. All needs met in room. Start Time: 13:00 Stop Time: 14:15 Total Billed Treatment Time: 75 Total Billed Treatment 1, GRP (75m) YVES WATSON FLOORPERSON Dec 25, 2019 15:14
--- NOTE | 2019-12-25 15:26 | NUR ---
provided prayer, Communion and ashes.
[2019-12-25] MEDS: ACETAMINOPHEN 500 MG TAB (TYLENOL) PO PRN (15:40)
--- NOTE | 2019-12-25 16:24 | NUR ---
CM/SS ADMISSION Patient was admitted to ARU 12/23/19 from our hospital for debility. Comorbidities include, in part, metastatic lung CA and IDDM. Patient is undergoing cancer care through a [facility] oncologist, including radiation treatments, but she has declined surgical intervention to date. Prior to hospitalization she resided at home with her spouse, Cheikh Johnson, and she will return there upon discharge. She describes have increasing falls over about 3 weeks and was not able to describe any forewarning signs before falling. EMR reflects she had a CT scan about one month ago due to suspected TIA's, results not known/confirmed. Patient does not appear to have any cognition impairment and converses well. DME: JOSE German, shower chair. PCP: Dr. Regan Castle, [place] INSURED: Medicare, [facility]: [facility] CONTACTS: Patient has 4 children, 2 sons and 2 daughters. Her children reside in other states with the exception of Daisy listed below: Cheikh Johnson, [place], [place] [phone] Patient indicated understanding of the purpose and process of the weekly team conference.
--- NOTE | 2019-12-25 16:33 | NUR ---
SS WEEKLY TEAM CONFERENCE Reviewed conference Summary with patient. She is in agreement to continued stay with target discharge for Monday, December 30, 2019. Admission interview completed this date, will continue to follow patient progress as it pertains to post hospital care planning.
[2019-12-25 17:12] VITALS: BP 127/67
[2019-12-25] MEDS: diphenhydrAMINE 25 MG TAB (BENADRYL) PO SCH (20:00)
[2019-12-25] MEDS: TEMAZEPAM 15 MG (RESTORIL) CAP PO SCH (20:00)
[2019-12-25] MEDS: MELATONIN 3 MG TABLET PO SCH (20:00)
[2019-12-26 06:08] VITALS: BP 158/77
[2019-12-26] MEDS: inSUlin ASPART (NovoLOG) 1 UNIT/0.01 ML (CHARGE PER UNIT) SC SCH ×4 (07:32→20:53)
[2019-12-26] MEDS ORDERED: CHOL200012 PO (08:09)
[2019-12-26] MEDS ORDERED: CRAN500T2 PO (08:09)
[2019-12-26 09:34] VITALS: BP 132/70
[2019-12-26] MEDS: CEFDINIR 300 MG (OMNICEF) CAP PO SCH ×2 (09:40→20:21)
[2019-12-26] MEDS: LACTOBACILLUS ACIDOPHILUS (PROBIOTIC) CAPSULE PO SCH ×2 (09:40→20:21)
[2019-12-26] MEDS: PANTOPRAZOLE 40 MG (PROTONIX) TAB PO SCH (09:40)
[2019-12-26] MEDS: PYRIDOXINE (VITAMIN B-6) 50 MG TABLET PO SCH (09:40)
[2019-12-26] MEDS: DOCUSATE SODIUM 100 MG (COLACE) CAP PO SCH ×2 (09:41→20:28)
[2019-12-26] MEDS: polyethylene glycoL POWDER 17 GM (MIRALAX) PACK PO SCH ×2 (09:41→20:28)
[2019-12-26] MEDS: VITAMIN D3 25 MCG (1,000 UNITS) TABLET PO SCH ×2 (09:41→20:21)
[2019-12-26] MEDS: SENNA W/DOCUSATE (SENOKOT S) TABLET PO SCH ×2 (09:41→20:29)
--- NOTE | 2019-12-26 11:03 | Occupational Ther Daily Note ---
OT Current Status-Daily Note Subjective Pt sleeping in bed. Pt woke to name. Pt stated she was tired and didn't want to get up. EVLOZ encouraged pt and pt agrees to therapy. Mental Status/Objective Patient Orientation: Person, Place, Time, Situation ADL-Treatment Pt declined bathing or changing clothing. Therapy Code Descriptions/Definitions Functional [place] Measure: 0=Not Assessed/NA 4=Minimal Assistance 1=Total Assistance 5=Supervision or Setup 2=Maximal Assistance 6=Modified [place] 3=Moderate Assistance 7=Complete IndependenceSCALE: Activities may be completed with or without assistive devices. 3-Qsmbsmzkfa-wjqrgqa completes the activity by him/herself with no assistance from a helper. 5-Set-up or Clean-up Assistance-helper sets up or cleans up; patient completes activity. Burdett assists only prior to or following the activity. 4-Supervision or Touching Assistance-helper provides verbal cues and/or touching/steadying and/or contact guard assistance as patient completes activity. Assistance may be provided throughout the activity or intermittently. 3-Partial/Moderate Assistance-helper does LESS THAN HALF the effort. Burdett lifts, holds or supports trunk or limbs, but provides less than half the effort. 2-Substantial/Maximal Assistance-helper does MORE THAN HALF the effort. Burdett lifts or holds trunk or limbs and provides more than half the effort. 1-Uvotwhuod-gdaaqj does ALL the effort. Patient does none of the effort to complete the activity. Or, the assistance of 2 or more helpers is required for the patient to complete the activity. If activity was not attempted, code reason: 7-Patient Refused. 9-Not Applicable-not attempted and the patient did not perform the activity before the current illness, exacerbation or injury. 10-Not Attempted due to Environmental Limitations-(lack of equipment, weather restraints, etc.). 88-Not Attempted due to Medical Conditions or Safety Concerns. Other Treatment SBA to ambulated to therapy gym to complete B UE strengthening exercises to improve daily functional skills and activity tolerance. Arm bike completed for 15 min at 15 caballero resistance, no rest breaks. Resistive fine motor tasks to increase pinch and production associate strength for coordination and dexterity. Wrist strengthening with 1# wt for all planes, 3 sets 10 reps. PT took over care of pt in therapy gym. All needs met. OT Short Term Goals Short Term Goals Time Frame: Jan 01, 2020 Toileting hygiene: 4 Shower/bathe self: 4 Upper body dressin Lower body dressin Putting on/taking off footwear: 4 OT Pet Technologist Goals Retirement Goals Time Frame: Jan 10, 2020 Eating (QC): 6 Oral Hygiene (QC): 6 Toileting Hygiene (QC): 6 Shower/Bathe Self (QC): 6 Upper Body Dressing (QC): 6 Lower Body Dressing (QC): 6 On/Off Footwear (QC): 6 Additional Goals: 1-Demonstrate ADL Tasks, 2-Verbalize Understanding, 3- ImproveStrength/Rosanna 1=Demonstrate adherence to instructed precautions during ADL tasks. 2=Patient will verbalize/demonstrate understanding of assistive devices/modifications for ADL. 3=Patient will improve strength/tolerance for activity to enable patient to perform ADL's. OT Education/Plan Problem List/Assessment Assessment: Decreased Activ Tolerance, Decreased UE Strength Discharge Recommendations Plan/Recommendations: Continue POC Treatment Plan/Plan of Care Patient would benefit from OT for education, treatment and training to promote independence in ADL's, mobility, safety and/or upper extremity function for ADL's. Plan of Care: ADL Retraining, Caregiver Training, Functional Mobility, Group Exercise/Act as Ind, UE Funct Exercise/Act Treatment Duration: Jan 10, 2020 Frequency: At least 5 of 7 days/Wk (IRF) Estimated Hrs Per Day: 1.5 hours per day Agreement: Yes Rehab Potential: Good Time/GCodes Start Time: 10:00 Stop Time: 11:00 Total Time Billed (hr/min): 60 Billed Treatment Time 1 visit-EX 4 (60 min) BAL RESENDEZ Dec 26, 2019 11:03
--- NOTE | 2019-12-26 11:46 | PM&R Progress Note ---
Subjective HPI/CC On Admission Date Seen by Provider: Dec 26, 2019 Time Seen by Provider: 10:30 Subjective/Events-last exam Lung Cancer causes the pt to sleep a lot Urine culture reviewed Klebsiella and Omnicef covers Sugar 204 Will initiate Novalog 5 units before meals her home dose in addition to sliding scale Fall risk prevention will be aggressively treated Conferred with RN Reviewed therapy notes Checked meds and labs Review of Systems General: Fatigue Neurological: Weakness Objective Exam Vital Signs Vital Signs Date Time Temp Pulse Resp B/P (MAP) Pulse Ox O2 Delivery O2 Flow Rate FiO2 12/26/19 20:24 Room Air 12/26/19 18:00 37.0 101 20 123/70 (87) 93 Capillary Refill : Less Than 3 SecondsLess Than 3 Seconds General Appearance: No Apparent Distress, WD/WN, Chronically ill HEENT: PERRL/EOMI, Normal ENT Inspection, Pharynx Normal Neck: Full Range of Motion, Normal Inspection, Non Tender, Supple, Carotid Bruit Respiratory: Chest Non Tender, Lungs Clear, No Accessory Muscle Use, No Respiratory Distress, Decreased Breath Sounds Cardiovascular: Regular Rate, Rhythm, No Edema, No Gallop, No JVD, No Murmur, Normal Peripheral Pulses Gastrointestinal: Normal Bowel Sounds, No Organomegaly, No Pulsatile Mass, Non Tender, Soft Back: Normal Inspection, No CVA Tenderness, No Vertebral Tenderness Extremity: Normal Capillary Refill, Normal Inspection, Normal Range of Motion, Non Tender, No Calf Tenderness, No Pedal Edema Neurologic/Psychiatric: Alert, Oriented x3, No Motor/Sensory Deficits, Normal Mood/Affect, adobe layer helper II-XII Norm as Tested, Disoriented (subtle poor recall) Skin: Normal Color, Warm/Dry Lymphatic: No Adenopathy Results/Procedures Lab Patient resulted labs reviewed. FIM Transfers Therapy Code Descriptions/Definitions Functional [place] Measure: 0=Not Assessed/NA 4=Minimal Assistance 1=Total Assistance 5=Supervision or Setup 2=Maximal Assistance 6=Modified [place] 3=Moderate Assistance 7=Complete IndependenceSCALE: Activities may be completed with or without assistive devices. 1-Kqtkvwacnl-demnsnz completes the activity by him/herself with no assistance from a helper. 5-Set-up or Clean-up Assistance-helper sets up or cleans up; patient completes activity. [place] assists only prior to or following the activity. 4-Supervision or Touching Assistance-helper provides verbal cues and/or touching/steadying and/or contact guard assistance as patient completes activity. Assistance may be provided throughout the activity or intermittently. 3-Partial/Moderate Assistance-helper does LESS THAN HALF the effort. [place] lif ts, holds or supports trunk or limbs, but provides less than half the effort. 2-Substantial/Maximal Assistance-helper does MORE THAN HALF the effort. [place] lifts or holds trunk or limbs and provides more than half the effort. 7-Vzgqhzrcl-hoprjd does ALL the effort. Patient does none of the effort to complete the activity. Or, the assistance of 2 or more helpers is required for the patient to complete the activity. If activity was not attempted, code reason: 7-Patient Refused. 9-Not Applicable-not attempted and the patient did not perform the activity before the current illness, exacerbation or injury. 10-Not Attempted due to Environmental Limitations-(lack of equipment, weather restraints, etc.). 88-Not Attempted due to Medical Conditions or Safety Concerns. Roll Left to Right (QC): 5 Sit to Lying (QC): 5 Sit to Stand (QC): 5 Chair/Ypq-zj-Pouou Xfer(QC): 5 Car Transfer (QC): 3 (assist with legs with skilled cues to sequence. ) Gait Training Does the Patient Walk?: Yes Distance: 90', 90', 60', 90' Walk 10 feet (QC): 5 Walk 50 ft with 2 Turns(QC): 5 Walk 150 ft (QC): 5 Walking 10ft/uneven surface-QC: 3 (min assist for safety and balance) Gait Persons Needed: 1 Gait Assistive Device: FWW Wheelchair Training Does the Pt Use a Wheelchair?: No Stair Training #of Steps: 1 1 Step (curb) (QC): 3 (min assist to step up and down) 4 Steps (QC): 88 12 Steps (QC): 88 Balance Picking up an Object (QC): 88 ADL-Treatment Eating (QC): 6 Oral Hygiene (QC): 5 Shower/Bathe Self (QC): 4 Upper Body Dressing (QC): 5 Lower Body Dressing (QC): 4 On/Off Footwear (QC): 3 (Pt able to doff/don socks, but requires assist for RAHUL hose.) Toileting Hygiene (QC): 4 (Pt completed hygiene sitting on toilet and SBA to complete clothing manipulation in standing.) Toilet Transfer (QC): 4 (SBA for toilet transfer using FWW and grabbar.) Assessment/Plan Assessment and Plan Assess & Plan/Chief Complaint Assessment: Fall Debility Poor recall Lung cancer with mets DM insulin dependent UTI acute on chronic Plan: Fall prevention IRF protocol UTI treatment to maintain on Omnicef Insulin (1) Physical debility (2) Urinary tract infection Status: Acute (3) Metastatic lung carcinoma (4) Dyspnea (5) Insulin dependent diabetes mellitus Status: Chronic (6) Dizziness Status: Acute (7) Fall Status: Acute HELADIO MODI DO Dec 26, 2019 11:46
[2019-12-26 11:49] VITALS: BP 125/61
[2019-12-26] MEDS: ENOXAPARIN 40 MG/0.4 ML (LOVENOX) SYR SC SCH (11:49)
[2019-12-26 11:51] VITALS: BP 120/63
--- NOTE | 2019-12-26 12:01 | Physical Therapy Daily Note ---
PT Daily Note-Current Subjective Pt sitting in chair in Therapy Gym finishing with VELOZ upon arrival. Pt agrees to PT but reports felling fatigued. Pain Location Body Site: Head Pain Description: Ache Comment: Pt reports pain just behind R ear at end of Rx, Nurse notified. Mental Status Patient Orientation: Person, Place, Situation Attachments: Other-See Comments (Glasses) Transfers SCALE: Activities may be completed with or without assistive devices. 4-Sgzstxaxye-lrwiiva completes the activity by him/herself with no assistance from a helper. 5-Set-up or Clean-up Assistance-helper sets up or cleans up; patient completes activity. [place] assists only prior to or following the activity. 4-Supervision or Touching Assistance-helper provides verbal cues and/or touching/steadying and/or contact guard assistance as patient completes activity. Assistance may be provided throughout the activity or intermittently. 3-Partial/Moderate Assistance-helper does LESS THAN HALF the effort. [place] lifts, holds or supports trunk or limbs, but provides less than half the effort. 2-Substantial/Maximal Assistance-helper does MORE THAN HALF the effort. [place] lifts or holds trunk or limbs and provides more than half the effort. 7-Wtbcbhiqi-slnhjq does ALL the effort. Patient does none of the effort to co mplete the activity. Or, the assistance of 2 or more helpers is required for the patient to complete the activity. If activity was not attempted, code reason: 7-Patient Refused. 9-Not Applicable-not attempted and the patient did not perform the activity before the current illness, exacerbation or injury. 10-Not Attempted due to Environmental Limitations-(lack of equipment, weather restraints, etc.). 88-Not Attempted due to Medical Conditions or Safety Concerns. Sit to Stand (QC): 5 Toilet Transfer (QC): 5 Weight Bearing Right Lower Extremity: Right Full Weight Bearing Left Lower Extremity: Left Full Weight Bearing Gait Training Does the Patient Walk?: Yes Distance: 150' x2 Walk 10 feet (QC): 5 Walk 50 ft with 2 Turns(QC): 5 Walk 150 ft (QC): 5 Gait Persons Needed: 1 Gait Assistive Device: FWW Pt fatigues quickly and asks to take RB during ambulation. Wheelchair Training Does the Pt Use a Wheelchair?: No Stair Training Stair Training: Handrails/: uses walker #of Steps: 2 1 Step (curb) (QC): 5 Stairs: Pattern: Step to Pt completes single step using FWW. Exercises Seated Therapy Exercises: Ankle pumps, Long arc quads, Hip flexion, Kicking activity Seated Reps: 15 NuStep Minutes: 10 NuStep Workload: 3 Treatments Pt transfers to standing and ambulates to NuStep. Pt uses NuStep for 2m before needing to return to room to use restroom. Pt then ambulates in hallway back to Therapy Gym to finish time on NuStep for additional 8m at WL 3 (taking RB in middle for fatigue). Pt completes Seated EX and single step x2 with FWW before ambulating back to room at end of Rx. Pt lays Supine in bed to rest with all needs met, call light in hand. Assessment Current Status: Fair Progress Pt continually reports fatigue and asks to lay down during Rx. Pt will participate but fatigues quickly needing RB. PT Short Term Goals Short Term Goals Time Frame: Dec 30, 2019 Sit to lyin Lying to sitting on side of be: 5 Sit to stand: 4 Walk 10 feet: 4 Walk 50 feet with two turns: 4 Walk 150 feet: 4 PT Half-Way Goals Cut Off Machine Unloader Goals PT Cut Off Machine Unloader Goals Time Frame: Jan 06, 2020 Roll Left & Right (QC): 6 Sit to Lying (QC): 6 Lying-Sitting on Side/Bed(QC): 6 Sit to Stand (QC): 6 Chair/Bnu-ik-Rzvpo Xfer(QC): 6 Toilet Transfer (QC): 6 Car Transfer (QC): 5 Does the Patient Walk: Yes Walk 10 feet (QC): 6 Walk 50ft with 2 Turns (QC): 6 Walk 150 ft (QC): 6 Walking 10ft on Uneven Surface: 5 1 Step (curb) (QC): 5 4 Steps (QC): 4 12 Steps (QC): 9 Picking up an Object (QC): 9 Does the Pt use WC or Scooter?: No PT Plan Problem List Problem List: Activity Tolerance, Functional Strength, Transfer Treatment/Plan Treatment Plan: Continue Plan of Care Treatment Plan: Bed Mobility, Education, Functional Activity Rosanna, Functional Strength, Group Therapy, Gait, Safety, Therapeutic Exercise, Transfers Treatment Duration: Jan 06, 2020 Frequency: At least 5 of 7 days/Wk (IRF) Estimated Hrs Per Day: 1.5 hours per day Patient and/or Family Agrees t: Yes Safety Risks/Education Patient Education: Gait Training, Transfer Techniques, Correct Positioning, Safety Issues Teaching Recipient: Patient Teaching Methods: Discussion Response to Teaching: Verbalize Understanding Time/GCodes Time In: 1100 Time Out: 1200 Total Billed Treatment Time: 60 Total Billed Treatment 1, GT (20m), FA (10m) & EX x2 (30m) YVES WATSON PTA Dec 26, 2019 12:01
--- NOTE | 2019-12-26 14:27 | Occupational Ther Daily Note ---
OT Current Status-Daily Note Subjective Pt alert, lying in bed. Pt states that she just got back into bed, does agree to therapy. No c/o pain. Mental Status/Objective Patient Orientation: Person, Place, Time, Situation ADL-Treatment Therapy Code Descriptions/Definitions Functional [place] Measure: 0=Not Assessed/NA 4=Minimal Assistance 1=Total Assistance 5=Supervision or Setup 2=Maximal Assistance 6=Modified [place] 3=Moderate Assistance 7=Complete IndependenceSCALE: Activities may be completed with or without assistive devices. 1-Oivcnpwrjf-ecgwhlq completes the activity by him/herself with no assistance from a helper. 5-Set-up or Clean-up Assistance-helper sets up or cleans up; patient completes activity. [place] assists only prior to or following the activity. 4-Supervision or Touching Assistance-helper provides verbal cues and/or touching/steadying and/or contact guard assistance as patient completes activity. Assistance may be provided throughout the activity or intermittently. 3-Partial/Moderate Assistance-helper does LESS THAN HALF the effort. [place] lif ts, holds or supports trunk or limbs, but provides less than half the effort. 2-Substantial/Maximal Assistance-helper does MORE THAN HALF the effort. [place] lifts or holds trunk or limbs and provides more than half the effort. 8-Zqzqpcbaa-nttfhp does ALL the effort. Patient does none of the effort to complete the activity. Or, the assistance of 2 or more helpers is required for the patient to complete the activity. If activity was not attempted, code reason: 7-Patient Refused. 9-Not Applicable-not attempted and the patient did not perform the activity before the current illness, exacerbation or injury. 10-Not Attempted due to Environmental Limitations-(lack of equipment, weather restraints, etc.). 88-Not Attempted due to Medical Conditions or Safety Concerns. Other Treatment Pt ambulated using FWW to Count includes the [facility]. Pt completed B UE strengthening and fine motor tasks for daily functional tasks. 1# wt attached to wrists while manipulating small objects and placing them in designated areas. Pt tolerated activity. After therapy, pt lying in bed with call light/phone in reach. All needs met in room. OT Short Term Goals Short Term Goals Time Frame: Jan 01, 2020 Toileting hygiene: 4 Shower/bathe self: 4 Upper body dressin Lower body dressin Putting on/taking off footwear: 4 OT Loss Prevention Guard Goals Fdc Goals Time Frame: Jan 10, 2020 Eating (QC): 6 Oral Hygiene (QC): 6 Toileting Hygiene (QC): 6 Shower/Bathe Self (QC): 6 Upper Body Dressing (QC): 6 Lower Body Dressing (QC): 6 On/Off Footwear (QC): 6 Additional Goals: 1-Demonstrate ADL Tasks, 2-Verbalize Understanding, 3- ImproveStrength/Rosanna 1=Demonstrate adherence to instructed precautions during ADL tasks. 2=Patient will verbalize/demonstrate understanding of assistive devices/kayce fications for ADL. 3=Patient will improve strength/tolerance for activity to enable patient to perform ADL's. OT Education/Plan Problem List/Assessment Assessment: Decreased Activ Tolerance, Decreased UE Strength Discharge Recommendations Plan/Recommendations: Continue POC Treatment Plan/Plan of Care Patient would benefit from OT for education, treatment and training to promote independence in ADL's, mobility, safety and/or upper extremity function for ADL's. Plan of Care: ADL Retraining, Caregiver Training, Functional Mobility, Group Exercise/Act as Ind, UE Funct Exercise/Act Treatment Duration: Jan 10, 2020 Frequency: At least 5 of 7 days/Wk (IRF) Estimated Hrs Per Day: 1.5 hours per day Agreement: Yes Rehab Potential: Good Time/GCodes Start Time: 13:30 Stop Time: 14:00 Total Time Billed (hr/min): 30 Billed Treatment Time 1 visit-EX 2 (30 min) BAL RESENDEZ Dec 26, 2019 14:27
--- NOTE | 2019-12-26 15:46 | Physical Therapy Daily Note ---
PT Daily Note-Current Subjective Pt asleep Supine in bed. Pt declines needing to use restroom, stating just recently used. Pt agrees to Supine EX but reports fatigue. Pain Location: No Pain Reported Mental Status Patient Orientation: Person, Place, Situation Transfers SCALE: Activities may be completed with or without assistive devices. 1-Gfphfncsdw-xusxnuq completes the activity by him/herself with no assistance from a helper. 5-Set-up or Clean-up Assistance-helper sets up or cleans up; patient completes activity. [place] assists only prior to or following the activity. 4-Supervision or Touching Assistance-helper provides verbal cues and/or touching/steadying and/or contact guard assistance as patient completes activity. Assistance may be provided throughout the activity or intermittently. 3-Partial/Moderate Assistance-helper does LESS THAN HALF the effort. [place] lifts, holds or supports trunk or limbs, but provides less than half the effort. 2-Substantial/Maximal Assistance-helper does MORE THAN HALF the effort. [place] lifts or holds trunk or limbs and provides more than half the effort. 8-Kzrmfpxdb-ocnjau does ALL the effort. Patient does none of the effort to complete the activity. Or, the assistance of 2 or more helpers is required for the patient to complete the activity. If activity was not attempted, code reason: 7-Patient Refused. 9-Not Applicable-not attempted and the patient did not perform the activity before the current illness, exacerbation or injury. 10-Not Attempted due to Environmental Limitations-(lack of equipment, weather restraints, etc.). 88-Not Attempted due to Medical Conditions or Safety Concerns. Weight Bearing Right Lower Extremity: Right Full Weight Bearing Left Lower Extremity: Left Full Weight Bearing Wheelchair Training Does the Pt Use a Wheelchair?: No Exercises Supine Ex: Ankle pumps, Quad Set, Glut sets, Heel Slides, Short Arc Quads, Straight leg raise, Hip abd/add Supine Reps: 10 (10 reps/ 2 sets) Treatments Pt completes Supine Ex with RB as needed for fatigue. Pt resting in bed with all needs met, call light in hand. Assessment Current Status: Fair Progress Pt fatigues easily, limits participation in Rx. Pt reports was fatigued at home as well. PT Short Term Goals Short Term Goals Time Frame: Dec 30, 2019 Sit to lyin Lying to sitting on side of be: 5 Sit to stand: 4 Walk 10 feet: 4 Walk 50 feet with two turns: 4 Walk 150 feet: 4 PT Mcc Goals Machine Veneer Repairer Goals PT Machine Veneer Repairer Goals Time Frame: Jan 06, 2020 Roll Left & Right (QC): 6 Sit to Lying (QC): 6 Lying-Sitting on Side/Bed(QC): 6 Sit to Stand (QC): 6 Chair/Uyi-ro-Mmazl Xfer(QC): 6 Toilet Transfer (QC): 6 Car Transfer (QC): 5 Does the Patient Walk: Yes Walk 10 feet (QC): 6 Walk 50ft with 2 Turns (QC): 6 Walk 150 ft (QC): 6 Walking 10ft on Uneven Surface: 5 1 Step (curb) (QC): 5 4 Steps (QC): 4 12 Steps (QC): 9 Picking up an Object (QC): 9 Does the Pt use WC or Scooter?: No PT Plan Problem List Problem List: Activity Tolerance, Functional Strength Treatment/Plan Treatment Plan: Continue Plan of Care Treatment Plan: Bed Mobility, Education, Functional Activity Rosanna, Functional Strength, Group Therapy, Gait, Safety, Therapeutic Exercise, Transfers Treatment Duration: Jan 06, 2020 Frequency: At least 5 of 7 days/Wk (IRF) Estimated Hrs Per Day: 1.5 hours per day Patient and/or Family Agrees t: Yes Safety Risks/Education Patient Education: Correct Positioning, Safety Issues Teaching Recipient: Patient Teaching Methods: Discussion Response to Teaching: Verbalize Understanding Time/GCodes Time In: 1430 Time Out: 1500 Total Billed Treatment Time: 30 Total Billed Treatment 1, EX x2 (30m) YVES WATSON BOX PRESS OPERATOR Dec 26, 2019 15:46
[2019-12-26] MEDS ORDERED: inSUlin ASPART (NovoLOG) 1 UNIT/0.01 ML (CHARGE PER UNIT) SC SCH (16:00)
[2019-12-26 18:00] VITALS: BP 123/70
[2019-12-26] MEDS: TEMAZEPAM 15 MG (RESTORIL) CAP PO SCH (20:21)
[2019-12-26] MEDS: diphenhydrAMINE 25 MG TAB (BENADRYL) PO SCH (20:22)
[2019-12-26] MEDS: MELATONIN 3 MG TABLET PO SCH (20:28)
--- NOTE | 2019-12-26 20:30 | NUR ---
COMPLAIN HEADACHE AND MEDICATED WITH TYLENOL. OTHERWISE, DENIES PAIN. STATES URINARY BURNING IMPROVED. STATES ONLY TAKES SCHEDULED 5U OF NOVOLOG WITH BREAKFAST AND SUPPER AT HOME, INSTEAD OF ACHS SCHEDULED HERE. DR. MODI NOTIFIED AND SCHEDULE CHANGED TO BID.
[2019-12-26] MEDS: ACETAMINOPHEN 500 MG TAB (TYLENOL) PO PRN (20:35)
[2019-12-26] MEDS ORDERED: NON-FORMULARY MEDICATION 1 EA EA (Cranberry Extract (Cranberry) 500 MG) PO SCH (21:00)
[2019-12-26] MEDS ORDERED: NON-FORMULARY MEDICATION 1 EA EA (Cholecalciferol (Vitamin D3) (D3-2000) 50 MCG) PO SCH (21:00)
--- NOTE | 2019-12-26 23:00 | NUR ---
PULLED BATHROOM LIGHT THAT WAS FINISHED IN BATHROOM , BUT HAD NOT CALLED NURSE TO HELP HER INTO BATHROOM. EXPLAINED OF IMPORTANCE TO CALL NURSE AND SHE VOICED UNDERSTANDING. BED EXIT ALARM TURNED ON.
[2019-12-27 05:59] VITALS: BP 122/73
[2019-12-27] MEDS: inSUlin ASPART (NovoLOG) 1 UNIT/0.01 ML (CHARGE PER UNIT) SC SCH ×6 (06:50→22:52)
[2019-12-27] MEDS: CEFDINIR 300 MG (OMNICEF) CAP PO SCH ×2 (09:01→20:10)
[2019-12-27] MEDS: polyethylene glycoL POWDER 17 GM (MIRALAX) PACK PO SCH ×2 (09:01→20:12)
[2019-12-27] MEDS: VITAMIN D3 25 MCG (1,000 UNITS) TABLET PO SCH ×2 (09:01→20:10)
[2019-12-27] MEDS: SENNA W/DOCUSATE (SENOKOT S) TABLET PO SCH ×2 (09:01→20:12)
[2019-12-27] MEDS: PYRIDOXINE (VITAMIN B-6) 50 MG TABLET PO SCH (09:01)
[2019-12-27] MEDS: LACTOBACILLUS ACIDOPHILUS (PROBIOTIC) CAPSULE PO SCH ×2 (09:01→20:10)
[2019-12-27] MEDS: DOCUSATE SODIUM 100 MG (COLACE) CAP PO SCH ×2 (09:01→20:11)
[2019-12-27] MEDS: PANTOPRAZOLE 40 MG (PROTONIX) TAB PO SCH (09:01)
--- NOTE | 2019-12-27 09:07 | Physical Therapy Daily Note ---
PT Daily Note-Current Subjective Pt L sidelying in bed upon arrival. Pt reluctantly agrees to PT, stating she slept well but still feelings tired. Pain Location: No Pain Reported Mental Status Patient Orientation: Person, Place, Situation Attachments: Other-See Comments (Glasses) Transfers SCALE: Activities may be completed with or without assistive devices. 2-Qjmultpzvi-otysmiq completes the activity by him/herself with no assistance from a helper. 5-Set-up or Clean-up Assistance-helper sets up or cleans up; patient completes activity. [place] assists only prior to or following the activity. 4-Supervision or Touching Assistance-helper provides verbal cues and/or touching/steadying and/or contact guard assistance as patient completes activity. Assistance may be provided throughout the activity or intermittently. 3-Partial/Moderate Assistance-helper does LESS THAN HALF the effort. [place] lifts, holds or supports trunk or limbs, but provides less than half the effort. 2-Substantial/Maximal Assistance-helper does MORE THAN HALF the effort. [place] lifts or holds trunk or limbs and provides more than half the effort. 6-Ytcqvuaxy-bslzeu does ALL the effort. Patient does none of the effort to complete the activity. Or, the assistance of 2 or more helpers is required for the patient to complete the activity. If activity was not attempted, code reason: 7-Patient Refused. 9-Not Applicable-not attempted and the patient did not perform the activity before the current illness, exacerbation or injury. 10-Not Attempted due to Environmental Limitations-(lack of equipment, weather restraints, etc.). 88-Not Attempted due to Medical Conditions or Safety Concerns. Roll Left & Right (QC): 5 Sit to Lying (QC): 5 Lying to Sitting/Side of Bed(Q: 5 Sit to Stand (QC): 5 Weight Bearing Right Lower Extremity: Right Full Weight Bearing Left Lower Extremity: Left Full Weight Bearing Gait Training Does the Patient Walk?: Yes Distance: 150' x2 Walk 10 feet (QC): 5 Walk 50 ft with 2 Turns(QC): 5 Walk 150 ft (QC): 5 Gait Persons Needed: 1 Gait Assistive Device: FWW Pt walks with slow abebe but improved activity tolerance. Wheelchair Training Does the Pt Use a Wheelchair?: No Exercises Seated Therapy Exercises: Ankle pumps, Long arc quads, Hip flexion, Kicking activity Seated Reps: 20 NuStep Minutes: 10 NuStep Workload: 3 Treatments Pt transfers from recliner to standing then ambulates in hallway. Pt uses NuStep for 10m at WL 3, needing several RB. Pt completes Seated Ex then ambulates back to room. Pt reports fatigue and despite TIE WORKER advising OT would arrive shortly, pt wants to lay to rest. Pt has all needs met, call light in hand. Assessment Current Status: Fair Progress Pt fatigues easily and requests frequent RB. Pt reports inactively lifestyle, stating slept much of the day. PT Short Term Goals Short Term Goals Time Frame: Dec 30, 2019 Sit to lyin Lying to sitting on side of be: 5 Sit to stand: 4 Walk 10 feet: 4 Walk 50 feet with two turns: 4 Walk 150 feet: 4 PT Budget Officer Goals Fdc Goals PT Fdc Goals Time Frame: Jan 06, 2020 Roll Left & Right (QC): 6 Sit to Lying (QC): 6 Lying-Sitting on Side/Bed(QC): 6 Sit to Stand (QC): 6 Chair/Whl-db-Jculu Xfer(QC): 6 Toilet Transfer (QC): 6 Car Transfer (QC): 5 Does the Patient Walk: Yes Walk 10 feet (QC): 6 Walk 50ft with 2 Turns (QC): 6 Walk 150 ft (QC): 6 Walking 10ft on Uneven Surface: 5 1 Step (curb) (QC): 5 4 Steps (QC): 4 12 Steps (QC): 9 Picking up an Object (QC): 9 Does the Pt use WC or Scooter?: No PT Plan Problem List Problem List: Activity Tolerance, Functional Strength, Gait Treatment/Plan Treatment Plan: Continue Plan of Care Treatment Plan: Bed Mobility, Education, Functional Activity Rosanna, Functional Strength, Group Therapy, Gait, Safety, Therapeutic Exercise, Transfers Treatment Duration: Jan 06, 2020 Frequency: At least 5 of 7 days/Wk (IRF) Estimated Hrs Per Day: 1.5 hours per day Patient and/or Family Agrees t: Yes Safety Risks/Education Patient Education: Gait Training, Transfer Techniques, Correct Positioning, Safety Issues Teaching Recipient: Patient Teaching Methods: Discussion Response to Teaching: Verbalize Understanding Time/GCodes Time In: 800 Time Out: 900 Total Billed Treatment Time: 60 Total Billed Treatment 1, GT (20m), FA (10m) & EX x2 (30m) YVES WATSON PTA Dec 27, 2019 09:07
--- NOTE | 2019-12-27 09:34 | Occupational Ther Daily Note ---
OT Current Status-Daily Note Subjective Pt resting in bed, states she is tired this morning. Agrees to therapy. No reports of pain. ADL-Treatment Pt supine to sit without assist. Pt declined shower this morning, states she would like to complete later. Gait to restroom with FWW. Pt transferred to toilet with CGA for minor LOB while sitting. Pt able to complete toileting hygiene without assist. Pt changed Depends with set up. Stood at sink to wash hands, brush teeth, and comb hair. No LOB noted. Therapy Code Descriptions/Definitions Functional [place] Measure: 0=Not Assessed/NA 4=Minimal Assistance 1=Total Assistance 5=Supervision or Setup 2=Maximal Assistance 6=Modified [place] 3=Moderate Assistance 7=Complete IndependenceSCALE: Activities may be completed with or without assistive devices. 2-Xvtlzymdgh-pjzmeea completes the activity by him/herself with no assistance from a helper. 5-Set-up or Clean-up Assistance-helper sets up or cleans up; patient completes activity. [place] assists only prior to or following the activity. 4-Supervision or Touching Assistance-helper provides verbal cues and/or touching/steadying and/or contact guard assistance as patient completes activity. Assistance may be provided throughout the activity or intermittently. 3-Partial/Moderate Assistance-helper does LESS THAN HALF the effort. [place] lifts, holds or supports trunk or limbs, but provides less than half the effort. 2-Substantial/Maximal Assistance-helper does MORE THAN HALF the effort. [place] lifts or holds trunk or limbs and provides more than half the effort. 9-Ddfkkgvzb-udeysj does ALL the effort. Patient does none of the effort to complete the activity. Or, the assistance of 2 or more helpers is required for the patient to complete the activity. If activity was not attempted, code reason: 7-Patient Refused. 9-Not Applicable-not attempted and the patient did not perform the activity before the current illness, exacerbation or injury. 10-Not Attempted due to Environmental Limitations-(lack of equipment, weather restraints, etc.). 88-Not Attempted due to Medical Conditions or Safety Concerns. Oral Hygiene (QC): 5 Lower Body Dressing (QC): 4 Toileting Hygiene (QC): 4 Toilet Transfer (QC): 4 Other Treatment Gait to therapy gym with FWW. Seated rest break upon arrival to gym. Arm bike x10 minutes to increase overall strength and activity tolerance needed for functional task completion. Pt completed activity with minimal resistance and slow pace. Multiple short rest breaks taken during activity. Graded clothespin activity completed with bilateral UE to increase pst manager/pinch strength. Pt completed resistance pegs activity with bilateral UE with 1# weights in place to increase strength and coordination/manipulation skilled. Pt completed task with occasional rest breaks. Pt returned to room, resting in bed with needs met after session. OT Short Term Goals Short Term Goals Time Frame: Jan 01, 2020 Toileting hygiene: 4 Shower/bathe self: 4 Upper body dressin Lower body dressin Putting on/taking off footwear: 4 OT Snf Goals Prepared Foods Supervisor Goals Time Frame: Jan 10, 2020 Eating (QC): 6 Oral Hygiene (QC): 6 Toileting Hygiene (QC): 6 Shower/Bathe Self (QC): 6 Upper Body Dressing (QC): 6 Lower Body Dressing (QC): 6 On/Off Footwear (QC): 6 Additional Goals: 1-Demonstrate ADL Tasks, 2-Verbalize Understanding, 3- ImproveStrength/Rosanna 1=Demonstrate adherence to instructed precautions during ADL tasks. 2=Patient will verbalize/demonstrate understanding of assistive devices/modifications for ADL. 3=Patient will improve strength/tolerance for activity to enable patient to perform ADL's. OT Education/Plan Discharge Recommendations Plan/Recommendations: Continue POC Treatment Plan/Plan of Care Patient would benefit from OT for education, treatment and training to promote independence in ADL's, mobility, safety and/or upper extremity function for ADL's. Plan of Care: ADL Retraining, Caregiver Training, Functional Mobility, Group Exercise/Act as Ind, UE Funct Exercise/Act Treatment Duration: Jan 10, 2020 Frequency: At least 5 of 7 days/Wk (IRF) Estimated Hrs Per Day: 1.5 hours per day Agreement: Yes Rehab Potential: Good Time/GCodes Start Time: 09:00 Stop Time: 10:00 Total Time Billed (hr/min): 60 Billed Treatment Time 1 visit, ADL(20minutes), EXx3(40minutes) TA RUIZ OT Dec 27, 2019 09:34
--- NOTE | 2019-12-27 10:27 | NUR ---
provided prayer, Communion
[2019-12-27] MEDS: ENOXAPARIN 40 MG/0.4 ML (LOVENOX) SYR SC SCH (11:31)
[2019-12-27] MEDS: ACETAMINOPHEN 500 MG TAB (TYLENOL) PO PRN ×2 (12:02→20:10)
--- NOTE | 2019-12-27 12:06 | PM&R Progress Note ---
Subjective HPI/CC On Admission Date Seen by Provider: Dec 27, 2019 Time Seen by Provider: 06:00 Subjective/Events-last exam Lung Cancer drains her energy and she sleeps a lot here and at home Urine culture reviewed Klebsiella and Omnicef covers and she is tolerating well Sugars are reviewed Novolog taken BID at home and does not want to change it Fall risk prevention will be aggressively treated Conferred with RN Reviewed therapy notes Checked meds and labs Review of Systems General: Fatigue Musculoskeletal: leg pain Objective Exam Vital Signs Vital Signs Date Time Temp Pulse Resp B/P (MAP) Pulse Ox O2 Delivery O2 Flow Rate FiO2 12/27/19 08:58 101 18 95 Room Air 12/27/19 05:59 36.4 122/73 (89) Capillary Refill : Less Than 3 SecondsLess Than 3 Seconds General Appearance: No Apparent Distress, WD/WN, Chronically ill HEENT: PERRL/EOMI, Normal ENT Inspection, Pharynx Normal Neck: Full Range of Motion, Normal Inspection, Non Tender, Supple, Carotid Bruit Respiratory: Chest Non Tender, Lungs Clear, No Accessory Muscle Use, No Respiratory Distress, Decreased Breath Sounds Cardiovascular: Regular Rate, Rhythm, No Edema, No Gallop, No JVD, No Murmur, Normal Peripheral Pulses Gastrointestinal: Normal Bowel Sounds, No Organomegaly, No Pulsatile Mass, Non Tender, Soft Back: Normal Inspection, No CVA Tenderness, No Vertebral Tenderness Extremity: Normal Capillary Refill, Normal Inspection, Normal Range of Motion, Non Tender, No Calf Tenderness, No Pedal Edema Neurologic/Psychiatric: Alert, Oriented x3, No Motor/Sensory Deficits, Normal Mood/Affect, credit risk associate II-XII Norm as Tested, Disoriented (subtle poor recall) Skin: Normal Color, Warm/Dry Lymphatic: No Adenopathy Results/Procedures Lab Patient resulted labs reviewed. FIM Transfers Therapy Code Descriptions/Definitions Functional [place] Measure: 0=Not Assessed/NA 4=Minimal Assistance 1=Total Assistance 5=Supervision or Setup 2=Maximal Assistance 6=Modified [place] 3=Moderate Assistance 7=Complete IndependenceSCALE: Activities may be completed with or without assistive devices. 8-Dcuvcnrmen-esvnyhr completes the activity by him/herself with no assistance from a helper. 5-Set-up or Clean-up Assistance-helper sets up or cleans up; patient completes activity. [place] assists only prior to or following the activity. 4-Supervision or Touching Assistance-helper provides verbal cues and/or touching/steadying and/or contact guard assistance as patient completes act ivity. Assistance may be provided throughout the activity or intermittently. 3-Partial/Moderate Assistance-helper does LESS THAN HALF the effort. [place] lifts, holds or supports trunk or limbs, but provides less than half the effort. 2-Substantial/Maximal Assistance-helper does MORE THAN HALF the effort. [place] lifts or holds trunk or limbs and provides more than half the effort. 8-Uvdkthxtj-bpearw does ALL the effort. Patient does none of the effort to complete the activity. Or, the assistance of 2 or more helpers is required for the patient to complete the activity. If activity was not attempted, code reason: 7-Patient Refused. 9-Not Applicable-not attempted and the patient did not perform the activity before the current illness, exacerbation or injury. 10-Not Attempted due to Environmental Limitations-(lack of equipment, weather restraints, etc.). 88-Not Attempted due to Medical Conditions or Safety Concerns. Roll Left to Right (QC): 5 Sit to Lying (QC): 5 Sit to Stand (QC): 5 Chair/Rhg-rp-Adfny Xfer(QC): 5 Car Transfer (QC): 3 (assist with legs with skilled cues to sequence. ) Gait Training Does the Patient Walk?: Yes Distance: 150' x2 Walk 10 feet (QC): 5 Walk 50 ft with 2 Turns(QC): 5 Walk 150 ft (QC): 5 Walking 10ft/uneven surface-QC: 3 (min assist for safety and balance) Gait Persons Needed: 1 Gait Assistive Device: FWW Wheelchair Training Does the Pt Use a Wheelchair?: No Stair Training Stair Training: Handrails/: uses walker #of Steps: 2 1 Step (curb) (QC): 5 4 Steps (QC): 88 12 Steps (QC): 88 Stairs: Pattern: Step to Balance Picking up an Object (QC): 88 ADL-Treatment Eating (QC): 6 Oral Hygiene (QC): 5 Shower/Bathe Self (QC): 4 Upper Body Dressing (QC): 5 Lower Body Dressing (QC): 4 On/Off Footwear (QC): 3 (Pt able to doff/don socks, but requires assist for RAHUL hose.) Toileting Hygiene (QC): 4 Toilet Transfer (QC): 4 Assessment/Plan Assessment and Plan Assess & Plan/Chief Complaint Assessment: Fall Debility Poor recall Lung cancer with mets DM insulin dependent UTI acute on chronic Plan: Fall prevention IRF protocol UTI treatment to maintain on Omnicef Insulin Fatigue level managed (1) Physical debility (2) Urinary tract infection Status: Acute (3) Metastatic lung carcinoma (4) Dyspnea (5) Insulin dependent diabetes mellitus Status: Chronic (6) Dizziness Status: Acute (7) Fall Status: Acute HELADIO MODI DO Dec 27, 2019 12:05
--- NOTE | 2019-12-27 13:25 | NUR ---
CM/SS DISCHARGE PLANNING Patient anticipated discharge is 12/30/19. Reviewed EMR, observed patient during therapy session today. Regarding post hospital services, will explore whether HHC is warranted. Patient past and present daily routine is little activity and lots of resting/napping, reluctance to therapy sessions here. Recommend home with family, followup with PCP and oncologist. If HHC is not appropriate at this time, PCP could initiate it in the future if circumstances change. Followup Monday to finalize discharge.
--- NOTE | 2019-12-27 14:57 | Therapy Group Daily Note ---
Therapy Daily Group Note Patient Education Topic Home Safety, Exercises, Other List Below (safe home exercise ideas) Exercises LE Seated Exercise, UE Exercise Session Ratio (pt:therapist): 4:1 Goal of Session: Education on ARU Expectations, UE/LE Strengthing, Other (list) (demonstration of ways to exercise safely at home) Goal Met for this Session: Yes Pt Benefit of Group: F/U Use of Strategies @Home, Socialization Other/Notes Pt attended OT/PT group this pm. Pt ambulated to/from [facility] with FWW. Pt introduced herself to the group for socialization and participated in group disc ussion appropriately. Education was provided regarding ARU process and expectations. Pts were instructed in strategies for safe home exercise. Pt participated in UE/LE seated exercises as tolerated. Standing exercises were demonstrated as well. Pt had good participation in all aspects of group activity. Pt returned to room, resting in bed with needs met after session. Start Time: 13:00 Stop Time: 14:10 Total Billed Treatment Time: 70 Total Billed Treatment 1 visit, GRP(70minutes) TA RUIZ OT Dec 27, 2019 14:57
[2019-12-27 16:00] VITALS: BP 119/77
[2019-12-27] MEDS: diphenhydrAMINE 25 MG TAB (BENADRYL) PO SCH (20:09)
[2019-12-27] MEDS: MELATONIN 3 MG TABLET PO SCH (20:10)
[2019-12-27] MEDS: TEMAZEPAM 15 MG (RESTORIL) CAP PO SCH (20:10)
[2019-12-28 06:11] VITALS: BP 116/70
[2019-12-28] MEDS: inSUlin ASPART (NovoLOG) 1 UNIT/0.01 ML (CHARGE PER UNIT) SC SCH ×6 (06:28→20:13)
[2019-12-28] MEDS: PYRIDOXINE (VITAMIN B-6) 50 MG TABLET PO SCH (08:18)
[2019-12-28] MEDS: PANTOPRAZOLE 40 MG (PROTONIX) TAB PO SCH (08:19)
[2019-12-28] MEDS: CEFDINIR 300 MG (OMNICEF) CAP PO SCH ×2 (08:19→20:16)
[2019-12-28] MEDS: LACTOBACILLUS ACIDOPHILUS (PROBIOTIC) CAPSULE PO SCH ×2 (08:22→20:09)
[2019-12-28] MEDS: DOCUSATE SODIUM 100 MG (COLACE) CAP PO SCH ×2 (08:23→20:19)
[2019-12-28] MEDS: SENNA W/DOCUSATE (SENOKOT S) TABLET PO SCH ×2 (08:23→20:19)
[2019-12-28] MEDS: polyethylene glycoL POWDER 17 GM (MIRALAX) PACK PO SCH ×2 (08:23→20:19)
--- NOTE | 2019-12-28 09:00 | NUR ---
DENIES ANY URINARY BURNING NOW. REMAINS TACHY 90-100'S. DENIES ANY PAIN. STATES DOES FEEL STRONGER, BUT CONTINUES TO SLEEP FREQUENTLY.
[2019-12-28] MEDS: VITAMIN D3 25 MCG (1,000 UNITS) TABLET PO SCH ×2 (09:46→20:09)
--- NOTE | 2019-12-28 10:26 | Physical Therapy Daily Note ---
PT Daily Note-Current Subjective Pt sitting in recliner & Aide was anne esteves upon arrival. Pt agrees to walking for PT Rx. Pain Location: No Pain Reported Mental Status Patient Orientation: Person, Place, Situation Transfers SCALE: Activities may be completed with or without assistive devices. 7-Owxvcrkodu-oseqgio completes the activity by him/herself with no assistance from a helper. 5-Set-up or Clean-up Assistance-helper sets up or cleans up; patient completes activity. [place] assists only prior to or following the activity. 4-Supervision or Touching Assistance-helper provides verbal cues and/or touching/steadying and/or contact guard assistance as patient completes activity. Assistance may be provided throughout the activity or intermittently. 3-Partial/Moderate Assistance-helper does LESS THAN HALF the effort. [place] lifts, holds or supports trunk or limbs, but provides less than half the effort. 2-Substantial/Maximal Assistance-helper does MORE THAN HALF the effort. [place] lifts or holds trunk or limbs and provides more than half the effort. 9-Xxkqkglek-zukvts does ALL the effort. Patient does none of the effort to complete the activity. Or, the assistance of 2 or more helpers is required for the patient to complete the activity. If activity was not attempted, code reason: 7-Patient Refused. 9-Not Applicable-not attempted and the patient did not perform the activity before the current illness, exacerbation or injury. 10-Not Attempted due to Environmental Limitations-(lack of equipment, weather restraints, etc.). 88-Not Attempted due to Medical Conditions or Safety Concerns. Sit to Stand (QC): 5 Weight Bearing Right Lower Extremity: Right Full Weight Bearing Left Lower Extremity: Left Full Weight Bearing Gait Training Does the Patient Walk?: Yes Distance: 150', 90' Walk 10 feet (QC): 5 Walk 50 ft with 2 Turns(QC): 5 Walk 150 ft (QC): 5 Gait Persons Needed: 1 Gait Assistive Device: FWW Pt walks with slow abebe & needs VC to stay close to FWW. Pt still needs RB for fatigue. Wheelchair Training Does the Pt Use a Wheelchair?: No Exercises Seated Therapy Exercises: Ankle pumps, Long arc quads, Hip flexion, Kicking activity, Glut set Seated Reps: 10 Treatments Pt transfers from recliner to standing, declines needing to use restroom. Pt ambulates in hallway, taking RB as needed. Pt completes Seated Ex before returning to room to rest in recliner. Pt has all needs met, call light in hand. Assessment Current Status: Good Progress Pt still limited by fatigue. PT Short Term Goals Short Term Goals Time Frame: Dec 30, 2019 Sit to lyin Lying to sitting on side of be: 5 Sit to stand: 4 Walk 10 feet: 4 Walk 50 feet with two turns: 4 Walk 150 feet: 4 PT Jewelry Salesperson Goals Jewelry Salesperson Goals PT Custodial Goals Time Frame: Jan 06, 2020 Roll Left & Right (QC): 6 Sit to Lying (QC): 6 Lying-Sitting on Side/Bed(QC): 6 Sit to Stand (QC): 6 Chair/Fnv-je-Hdzaw Xfer(QC): 6 Toilet Transfer (QC): 6 Car Transfer (QC): 5 Does the Patient Walk: Yes Walk 10 feet (QC): 6 Walk 50ft with 2 Turns (QC): 6 Walk 150 ft (QC): 6 Walking 10ft on Uneven Surface: 5 1 Step (curb) (QC): 5 4 Steps (QC): 4 12 Steps (QC): 9 Picking up an Object (QC): 9 Does the Pt use WC or Scooter?: No PT Plan Problem List Problem List: Activity Tolerance, Functional Strength, Gait Treatment/Plan Treatment Plan: Continue Plan of Care Treatment Plan: Bed Mobility, Education, Functional Activity Rosanna, Functional Strength, Group Therapy, Gait, Safety, Therapeutic Exercise, Transfers Treatment Duration: Jan 06, 2020 Frequency: At least 5 of 7 days/Wk (IRF) Estimated Hrs Per Day: 1.5 hours per day Patient and/or Family Agrees t: Yes Safety Risks/Education Patient Education: Gait Training, Transfer Techniques, Correct Positioning, Safety Issues Teaching Recipient: Patient Teaching Methods: Discussion Response to Teaching: Verbalize Understanding Time/GCodes Time In: 950 Time Out: 1005 Total Billed Treatment Time: 15 Total Billed Treatment 1, GT (15m) YVES WATSON TURBINE INSPECTOR Dec 28, 2019 10:26
[2019-12-28] MEDS: ENOXAPARIN 40 MG/0.4 ML (LOVENOX) SYR SC SCH (11:45)
--- NOTE | 2019-12-28 14:03 | PM&R Progress Note ---
Subjective HPI/CC On Admission Date Seen by Provider: Dec 28, 2019 Time Seen by Provider: 06:00 Subjective/Events-last exam Sleeps a lot Omnicef tolerated well Sugars are reviewed Novolog taken BID at home and does not want to change it so we will manage as is Fall risk prevention will be aggressively treated Conferred with RN Reviewed therapy notes Checked meds and labs Review of Systems General: Fatigue Neurological: Weakness Objective Exam Vital Signs Vital Signs Date Time Temp Pulse Resp B/P (MAP) Pulse Ox O2 Delivery O2 Flow Rate FiO2 12/28/19 09:00 Room Air 12/28/19 06:11 36.4 93 16 116/70 (85) 95 Capillary Refill : Less Than 3 SecondsLess Than 3 Seconds General Appearance: No Apparent Distress, WD/WN, Chronically ill HEENT: PERRL/EOMI, Normal ENT Inspection, Pharynx Normal Neck: Full Range of Motion, Normal Inspection, Non Tender, Supple, Carotid Bruit Respiratory: Chest Non Tender, Lungs Clear, No Accessory Muscle Use, No Respiratory Distress, Decreased Breath Sounds Cardiovascular: Regular Rate, Rhythm, No Edema, No Gallop, No JVD, No Murmur, Normal Peripheral Pulses Gastrointestinal: Normal Bowel Sounds, No Organomegaly, No Pulsatile Mass, Non Tender, Soft Back: Normal Inspection, No CVA Tenderness, No Vertebral Tenderness Extremity: Normal Capillary Refill, Normal Inspection, Normal Range of Motion, Non Tender, No Calf Tenderness, No Pedal Edema Neurologic/Psychiatric: Alert, Oriented x3, No Motor/Sensory Deficits, Normal Mood/Affect, printing roller polisher II-XII Norm as Tested, Disoriented (subtle poor recall) Skin: Normal Color, Warm/Dry Lymphatic: No Adenopathy Results/Procedures Lab Patient resulted labs reviewed. FIM Transfers Therapy Code Descriptions/Definitions Functional [place] Measure: 0=Not Assessed/NA 4=Minimal Assistance 1=Total Assistance 5=Supervision or Setup 2=Maximal Assistance 6=Modified [place] 3=Moderate Assistance 7=Complete IndependenceSCALE: Activities may be completed with or without assistive devices. 8-Dnuupzfqqh-siuetmh completes the activity by him/herself with no assistance from a helper. 5-Set-up or Clean-up Assistance-helper sets up or cleans up; patient completes activity. [place] assists only prior to or following the activity. 4-Supervision or Touching Assistance-helper provides verbal cues and/or touching/steadying and/or contact guard assistance as patient completes activity. Assistance may be provided throughout the activity or intermittently. 3-Partial/Moderate Assistance-helper does LESS THAN HALF the effort. [place] lifts, holds or supports trunk or limbs, but provides less than half the effort. 2-Substantial/Maximal Assistance-helper does MORE THAN HALF the effort. [place] lifts or holds trunk or limbs and provides more than half the effort. 4-Ibbykcjnr-myewcv does ALL the effort. Patient does none of the effort to complete the activity. Or, the assistance of 2 or more helpers is required for the patient to complete the activity. If activity was not attempted, code reason: 7-Patient Refused. 9-Not Applicable-not attempted and the patient did not perform the activity before the current illness, exacerbation or injury. 10-Not Attempted due to Environmental Limitations-(lack of equipment, weather restraints, etc.). 88-Not Attempted due to Medical Conditions or Safety Concerns. Roll Left to Right (QC): 5 Sit to Lying (QC): 5 Sit to Stand (QC): 5 Chair/Gnq-it-Fscas Xfer(QC): 5 Car Transfer (QC): 3 (assist with legs with skilled cues to sequence. ) Gait Training Does the Patient Walk?: Yes Distance: 150', 90' Walk 10 feet (QC): 5 Walk 50 ft with 2 Turns(QC): 5 Walk 150 ft (QC): 5 Walking 10ft/uneven surface-QC: 3 (min assist for safety and balance) Gait Persons Needed: 1 Gait Assistive Device: FWW Wheelchair Training Does the Pt Use a Wheelchair?: No Stair Training Stair Training: Handrails/: uses walker #of Steps: 2 1 Step (curb) (QC): 5 4 Steps (QC): 88 12 Steps (QC): 88 Stairs: Pattern: Step to Balance Picking up an Object (QC): 88 ADL-Treatment Eating (QC): 6 Oral Hygiene (QC): 5 Shower/Bathe Self (QC): 4 Upper Body Dressing (QC): 5 Lower Body Dressing (QC): 4 On/Off Footwear (QC): 3 (Pt able to doff/don socks, but requires assist for RAHUL hose.) Toileting Hygiene (QC): 4 Toilet Transfer (QC): 4 Assessment/Plan Assessment and Plan Assess & Plan/Chief Complaint Assessment: Fall Debility Poor recall Lung cancer with mets DM insulin dependent UTI acute on chronic Low energy Plan: Fall prevention IRF protocol UTI treatment to maintain on Omnicef Insulin Fatigue level managed CA treatment per Oral (1) Physical debility (2) Urinary tract infection Status: Acute (3) Metastatic lung carcinoma (4) Dyspnea (5) Insulin dependent diabetes mellitus Status: Chronic (6) Dizziness Status: Acute (7) Fall Status: Acute HELADIO MODI DO Dec 28, 2019 14:02
[2019-12-28 16:00] VITALS: BP 119/73
--- NOTE | 2019-12-28 17:00 | NUR ---
STATES HAS BEEN CONFUSED AT HOME, BUT THINKING CLEARER HERE. BELIEVES SHE HAS BEEN TAKING TOO MANY MEDICINES AT HOME INCLUDING TRAMADOL, TYLENOL AND BENADRYL.
--- NOTE | 2019-12-28 19:23 | NUR ---
bedside report recieved from YAMILET FALCON, assume care of pt
[2019-12-28] MEDS: MELATONIN 3 MG TABLET PO SCH (20:09)
[2019-12-28] MEDS: diphenhydrAMINE 25 MG TAB (BENADRYL) PO SCH (20:10)
[2019-12-28] MEDS: ACETAMINOPHEN 500 MG TAB (TYLENOL) PO PRN (20:10)
--- NOTE | 2019-12-28 20:10 | NUR ---
pt refused Colace, miralax & Senokot, wanted to wait on Restoril to see if could fall asleep on own, c/o headache level 7/10 on numeric scale, Tylenol 1000mg given
--- NOTE | 2019-12-28 20:12 | NUR ---
fsbs 143, no ss insulin req
[2019-12-28] MEDS: TEMAZEPAM 15 MG (RESTORIL) CAP PO SCH (21:00)
--- NOTE | 2019-12-28 21:00 | NUR ---
resting quietly in bed, pain level 0/10 on CNPI SCALE
[2019-12-29 06:14] VITALS: BP 119/74
[2019-12-29] MEDS: inSUlin ASPART (NovoLOG) 1 UNIT/0.01 ML (CHARGE PER UNIT) SC SCH ×6 (06:29→20:47)
--- NOTE | 2019-12-29 08:00 | NUR ---
AND PATIENT BOTH FEEL PATIENT IS READY FOR DISCHARGE TOMORROW. IS BUILDING STEPS FOR THEIR BED WHICH SITS UP HIGH. DENIES PAIN. NO COMPLAINTS.
[2019-12-29] MEDS: PYRIDOXINE (VITAMIN B-6) 50 MG TABLET PO SCH (08:54)
[2019-12-29] MEDS: PANTOPRAZOLE 40 MG (PROTONIX) TAB PO SCH (08:54)
[2019-12-29] MEDS: DOCUSATE SODIUM 100 MG (COLACE) CAP PO SCH ×2 (08:56→21:00)
[2019-12-29] MEDS: polyethylene glycoL POWDER 17 GM (MIRALAX) PACK PO SCH ×2 (08:56→23:06)
[2019-12-29] MEDS: SENNA W/DOCUSATE (SENOKOT S) TABLET PO SCH ×2 (08:56→21:00)
[2019-12-29] MEDS: LACTOBACILLUS ACIDOPHILUS (PROBIOTIC) CAPSULE PO SCH ×2 (08:59→20:45)
[2019-12-29] MEDS: VITAMIN D3 25 MCG (1,000 UNITS) TABLET PO SCH ×2 (09:00→21:00)
[2019-12-29] MEDS: ENOXAPARIN 40 MG/0.4 ML (LOVENOX) SYR SC SCH (11:26)
[2019-12-29] MEDS ORDERED: diphenhydrAMINE 25 MG TAB (BENADRYL) PO PRN (12:45)
[2019-12-29] MEDS ORDERED: TEMAZEPAM 15 MG (RESTORIL) CAP PO PRN (12:45)
[2019-12-29] MEDS ORDERED: MELATONIN 3 MG TABLET PO PRN (12:45)
--- NOTE | 2019-12-29 13:00 | NUR ---
DISCUSSED WITH DR. MODI THAT 3 SLEEPING MEDS ARE ORDERED AT HS. MEDICATIONS CHANGED TO PRN. PATIENT WILL SIT UP IN CHAIR FOR 30 MINUTES, THEN WANTS TO GET BACK IN BED. WOULD LIKE TO PICK HER UP AT [id number] TOMORROW.
[2019-12-29] MEDS ORDERED: INSU100V SQ (13:56)
[2019-12-29] MEDS: ACETAMINOPHEN 500 MG TAB (TYLENOL) PO PRN (17:27)
[2019-12-29 18:37] VITALS: BP 114/70
--- NOTE | 2019-12-29 18:56 | PM&R Progress Note ---
Subjective HPI/CC On Admission Date Seen by Provider: Dec 29, 2019 Time Seen by Provider: 12:15 Subjective/Events-last exam Fall prevention focused Tolerating Omnicef DC planned for tomorrow on Overuse of sleeping meds are assumed to have occurred per Conferred with RN Reviewed therapy notes Checked meds and labs Review of Systems General: Fatigue Objective Exam Vital Signs Vital Signs Date Time Temp Pulse Resp B/P (MAP) Pulse Ox O2 Delivery O2 Flow Rate FiO2 12/29/19 18:37 37.4 102 20 114/70 (85) 92 Room Air Capillary Refill : Less Than 3 SecondsLess Than 3 Seconds General Appearance: No Apparent Distress, WD/WN, Chronically ill HEENT: PERRL/EOMI, Normal ENT Inspection, Pharynx Normal Neck: Full Range of Motion, Normal Inspection, Non Tender, Supple, Carotid Bruit Respiratory: Chest Non Tender, Lungs Clear, No Accessory Muscle Use, No Respiratory Distress, Decreased Breath Sounds Cardiovascular: Regular Rate, Rhythm, No Edema, No Gallop, No JVD, No Murmur, Normal Peripheral Pulses Gastrointestinal: Normal Bowel Sounds, No Organomegaly, No Pulsatile Mass, Non Tender, Soft Back: Normal Inspection, No CVA Tenderness, No Vertebral Tenderness Extremity: Normal Capillary Refill, Normal Inspection, Normal Range of Motion, Non Tender, No Calf Tenderness, No Pedal Edema Neurologic/Psychiatric: Alert, Oriented x3, No Motor/Sensory Deficits, Normal Mood/Affect, 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 FIM Transfers Therapy Code Descriptions/Definitions Functional [place] Measure: 0=Not Assessed/NA 4=Minimal Assistance 1=Total Assistance 5=Supervision or Setup 2=Maximal Assistance 6=Modified [place] 3=Moderate Assistance 7=Complete IndependenceSCALE: Activities may be completed with or without assistive devices. 0-Mwivvxediu-vqnnxjx completes the activity by him/herself with no assistance from a helper. 5-Set-up or Clean-up Assistance-helper sets up or cleans up; patient completes activity. [place] assists only prior to or following the activity. 4-Supervision or Touching Assistance-helper provides verbal cues and/or touching/steadying and/or contact guard assistance as patient completes activity. Assistance may be provided throughout the activity or intermittently. 3-Partial/Moderate Assistance-helper does LESS THAN HALF the effort. [place] lifts, holds or supports trunk or limbs, but provides less than half the effort. 2-Substantial/Maximal Assistance-helper does MORE THAN HALF the effort. [place] lifts or holds trunk or limbs and provides more than half the effort. 9-Enkfpmkau-robasu does ALL the effort. Patient does none of the effort to complete the activity. Or, the assistance of 2 or more helpers is required for the patient to complete the activity. If activity was not attempted, code reason: 7-Patient Refused. 9-Not Applicable-not attempted and the patient did not perform the activity before the current illness, exacerbation or injury. 10-Not Attempted due to Environmental Limitations-(lack of equipment, weather restraints, etc.). 88-Not Attempted due to Medical Conditions or Safety Concerns. Roll Left to Right (QC): 5 Sit to Lying (QC): 5 Sit to Stand (QC): 5 Chair/Qrg-cy-Ndyjw Xfer(QC): 5 Car Transfer (QC): 3 (assist with legs with skilled cues to sequence. ) Gait Training Does the Patient Walk?: Yes Distance: 150', 90' Walk 10 feet (QC): 5 Walk 50 ft with 2 Turns(QC): 5 Walk 150 ft (QC): 5 Walking 10ft/uneven surface-QC: 3 (min assist for safety and balance) Gait Persons Needed: 1 Gait Assistive Device: FWW Wheelchair Training Does the Pt Use a Wheelchair?: No Stair Training Stair Training: Handrails/: uses walker #of Steps: 2 1 Step (curb) (QC): 5 4 Steps (QC): 88 12 Steps (QC): 88 Stairs: Pattern: Step to Balance Picking up an Object (QC): 88 ADL-Treatment Eating (QC): 6 Oral Hygiene (QC): 5 Shower/Bathe Self (QC): 4 Upper Body Dressing (QC): 5 Lower Body Dressing (QC): 4 On/Off Footwear (QC): 3 (Pt able to doff/don socks, but requires assist for RAHUL hose.) Toileting Hygiene (QC): 4 Toilet Transfer (QC): 4 Assessment/Plan Assessment and Plan Assess & Plan/Chief Complaint Assessment: Fall Debility Poor recall Lung cancer with mets DM insulin dependent UTI acute on chronic Low energy Plan: Fall prevention IRF protocol UTI treatment to maintain on Omnicef Insulin Fatigue level managed CA treatment per [place] Limit hypnotics (1) Physical debility (2) Urinary tract infection Status: Acute (3) Metastatic lung carcinoma (4) Dyspnea (5) Insulin dependent diabetes mellitus Status: Chronic (6) Dizziness Status: Acute (7) Fall Status: Acute HELADIO MODI DO Dec 29, 2019 18:56
[2019-12-30 05:27] VITALS: BP 122/70
--- NOTE | 2019-12-30 07:20 | NUR ---
pt requested not to take her am insulin until after breakfast
[2019-12-30 07:45] LABS: BASOPHILS % (AUTO) 0 % (0-10); EOSINOPHILS # (AUTO) 0.3 10^3/uL (0.0-0.3); EOSINOPHILS % (AUTO) 3 % (0-10); HEMATOCRIT 31 % (35-52); HEMOGLOBIN 9.4 G/DL (11.5-16.0); LYMPHOCYTES # (AUTO) 0.9 X 10^3 (1.0-4.0); LYMPHOCYTES % (AUTO) 11 % (12-44); MEAN CORPUSCULAR HEMOGLOBIN 26 PG (25-34); MEAN CORPUSCULAR HGB CONC 31 G/DL (32-36); MEAN CORPUSCULAR VOLUME 85 FL (80-99); MEAN PLATELET VOLUME 8.9 FL (7.4-10.4); MONOCYTES # (AUTO) 0.8 X 10^3 (0.0-1.0); MONOCYTES % (AUTO) 10 % (0-12); NEUTROPHILS # (AUTO) 6.3 X 10^3 (1.8-7.8); NEUTROPHILS % (AUTO) 76 % (42-75); PLATELET COUNT 484 10^3/uL (130-400); RED CELL DISTRIBUTION WIDTH 15.7 % (10.0-14.5); WHITE BLOOD COUNT 8.4 10^3/uL (4.3-11.0)
[2019-12-30 08:08] LABS: ALANINE AMINOTRANSFERASE 27 U/L (0-55); ALBUMIN 3.4 GM/DL (3.2-4.5); ALKALINE PHOSPHATASE 104 U/L (40-136); BILIRUBIN,TOTAL 0.2 MG/DL (0.1-1.0); BUN/CREATININE RATIO 15; CALCIUM 9.6 MG/DL (8.5-10.1); CARBON DIOXIDE 22 MMOL/L (21-32); CHLORIDE 106 MMOL/L (98-107); CREATININE SERUM 0.84 MG/DL (0.60-1.30); GFR ESTIMATED > 60; GLUCOSE 181 MG/DL (70-105); SODIUM 140 MMOL/L (135-145); TOTAL PROTEIN 6.1 GM/DL (6.4-8.2)
[2019-12-30] MEDS: polyethylene glycoL POWDER 17 GM (MIRALAX) PACK PO SCH (09:00)
[2019-12-30] MEDS ORDERED: TEMA15CA PO (09:00)
[2019-12-30] MEDS: SENNA W/DOCUSATE (SENOKOT S) TABLET PO SCH (09:00)
[2019-12-30] MEDS: DOCUSATE SODIUM 100 MG (COLACE) CAP PO SCH (09:00)
--- NOTE | 2019-12-30 09:02 | Discharge Summary ---
Diagnosis/Chief Complaint Date of Admission Dec 23, 2019 at 11:16 Date of Discharge Discharge Date: Dec 30, 2019 Discharge Diagnosis Assessment: Fall Debility Poor recall Lung cancer with mets DM insulin dependent UTI acute on chronic Plan: Fall prevention IRF protocol UTI treatment completed Omnicef Insulin (1) Physical debility (2) Urinary tract infection Status: Acute (3) Metastatic lung carcinoma (4) Dyspnea (5) Insulin dependent diabetes mellitus Status: Chronic (6) Dizziness Status: Acute (7) Fall Status: Acute Discharge Summary Discharge Physical Examination Allergies: Coded Allergies: metronidazole (Verified Allergy, Intermediate, hives, 03/17/17) Sulfa (Sulfonamide Antibiotics) (Verified Allergy, Unknown, 03/20/17) cephalexin (Verified Allergy, Unknown, 01/17/18) ciprofloxacin (Verified Allergy, Unknown, ITCHING, 03/17/17) codeine (Verified Allergy, Unknown, 01/17/18) metoprolol (Verified Allergy, Unknown, 01/17/18) nitrofurantoin (Verified Allergy, Unknown, 01/17/18) Vitals & I&Os Vital Signs Date Time Temp Pulse Resp B/P (MAP) Pulse Ox O2 Delivery O2 Flow Rate FiO2 12/30/19 09:00 Room Air 12/30/19 05:27 36.2 94 16 122/70 (87) 95 General Appearance: Alert, Oriented X3, Cooperative Respiratory: Clear to Auscultation, Normal Air Movement Neuro: Normal Gait, Normal Speech, Strength at 5/5 X4 Ext Hospital Course Was the Problem List Reviewed?: Yes Hospital course: Pt had an uneventful hospital course for eight days, she was admitted after a fall, UTI and overall debilitated status from lung cancer treatment. She was resumed on all of her home medications including insulin and although she did participate in all therapy she sleeps a lot and no home health was needed at the time of discharge. We were able to focus on prevention of falls and Pt will be able to implement everything she learned along with the use of a walker at discharge home and her will provide care-taking responsibility. Labs (last 24 hrs) Laboratory Tests 12/23/19 11:56: Glucometer 252H 12/23/19 15:38: Glucometer 190H 12/23/19 20:41: Glucometer 185H 12/24/19 06:07: Glucometer 200H 12/24/19 06:45: White Blood Count 8.2, Red Blood Count 3.79L, Hemoglobin 9.9L, Hematocrit 32L, Mean Corpuscular Volume 85, Mean Corpuscular Hemoglobin 26, Mean Corpuscular Hemoglobin Concent 31L, Red Cell Distribution Width 15.6H, Platelet Count 341, Mean Platelet Volume 8.9, Neutrophils (%) (Auto) 80H, Lymphocytes (%) (Auto) 12, Monocytes (%) (Auto) 6, Eosinophils (%) (Auto) 2, Basophils (%) (Auto) 0, Neutrophils # (Auto) 6.5, Lymphocytes # (Auto) 1.0, Monocytes # (Auto) 0.5, Eosi nophils # (Auto) 0.2, Basophils # (Auto) 0.0, Neutrophils % (Manual) 77, Lymphocytes % (Manual) 13, Monocytes % (Manual) 7, Band Neutrophils 1, Atypical Lymphocytes 2, Polychromasia SLIGHT, Poikilocytosis SLIGHT, Anisocytosis SLIGHT, [place] Cells SLIGHT, Sodium Level 139, Potassium Level 4.0, Chloride Level 106, Carbon Dioxide Level 21, Anion Gap 12, Blood Urea Nitrogen 11, Creatinine 0.81, Estimat Glomerular Filtration Rate > 60, BUN/Creatinine Ratio 14, Glucose Level 188H, Calcium Level 9.9, Corrected Calcium 10.3H, Total Bilirubin 0.3, Aspartate Amino Transf (AST/SGOT) 19, Alanine Aminotransferase (ALT/SGPT) 18, Alkaline Phosphatase 97, Total Protein 6.3L, Albumin 3.5 12/24/19 11:06: Glucometer 190H 12/24/19 15:44: Glucometer 184H 12/24/19 21:07: Glucometer 250H 12/25/19 04:42: Glucometer 193H 12/25/19 11:05: Glucometer 161H 12/25/19 15:23: Glucometer 219H 12/25/19 20:24: Glucometer 218H 12/26/19 06:13: Glucometer 204H 12/26/19 10:51: Glucometer 227H 12/26/19 15:58: Glucometer 158H 12/26/19 20:41: Glucometer 196H 12/27/19 05:37: Glucometer 199H 12/27/19 11:00: Glucometer 199H 12/27/19 15:22: Glucometer 191H 12/27/19 20:35: Glucometer 213H 12/28/19 05:00: Glucometer 246H 12/28/19 11:09: Glucometer 255H 12/28/19 16:00: Glucometer 195H 12/28/19 20:09: Glucometer 143H 12/29/19 06:04: Glucometer 190H 12/29/19 10:40: Glucometer 212H 12/29/19 15:45: Glucometer 132H 12/29/19 20:41: Glucometer 187H 12/30/19 05:45: White Blood Count 8.4, Red Blood Count 3.59L, Hemoglobin 9.4L, Hematocrit 31L, Mean Corpuscular Volume 85, Mean Corpuscular Hemoglobin 26, Mean Corpuscular Hemoglobin Concent 31L, Red Cell Distribution Width 15.7H, Platelet Count 484H, Mean Platelet Volume 8.9, Neutrophils (%) (Auto) 76H, Lymphocytes (%) (Auto) 11L , Monocytes (%) (Auto) 10, Eosinophils (%) (Auto) 3, Basophils (%) (Auto) 0, N eutrophils # (Auto) 6.3, Lymphocytes # (Auto) 0.9L, Monocytes # (Auto) 0.8, Eosinophils # (Auto) 0.3, Basophils # (Auto) 0.0, Sodium Level 140, Potassium Level 4.0, Chloride Level 106, Carbon Dioxide Level 22, Anion Gap 12, Blood Urea Nitrogen 13, Creatinine 0.84, Estimat Glomerular Filtration Rate > 60, BUN/Creatinine Ratio 15, Glucose Level 181H, Calcium Level 9.6, Corrected Calcium 10.1, Total Bilirubin 0.2, Aspartate Amino Transf (AST/SGOT) 26, Alanine Aminotransferase (ALT/SGPT) 27, Alkaline Phosphatase 104, Total Protein 6.1L, Albumin 3.4 12/30/19 10:53: Glucometer 241H Pending Labs Laboratory Tests 12/23/19 11:56: Glucometer 252 12/23/19 15:38: Glucometer 190 12/23/19 20:41: Glucometer 185 12/24/19 06:07: Glucometer 200 12/24/19 06:45: White Blood Count 8.2, Red Blood Count 3.79, Hemoglobin 9.9, Hematocrit 32, Mean Corpuscular Volume 85, Mean Corpuscular Hemoglobin 26, Mean Corpuscular Hemoglobin Concent 31, Red Cell Distribution Width 15.6, Platelet Count 341, Mean Platelet Volume 8.9, Neutrophils (%) (Auto) 80, Lymphocytes (%) (Auto) 12, Monocytes (%) (Auto) 6, Eosinophils (%) (Auto) 2, Basophils (%) (Auto) 0, Neutrophils # (Auto) 6.5, Lymphocytes # (Auto) 1.0, Monocytes # (Auto) 0.5, Eosinophils # (Auto) 0.2, Basophils # (Auto) 0.0, Neutrophils % (Manual) 77, Lymphocytes % (Manual) 13, Monocytes % (Manual) 7, Band Neutrophils 1, Atypical Lymphocytes 2, Polychromasia SLIGHT, Poikilocytosis SLIGHT, Anisocytosis SLIGHT, [place] Cells SLIGHT, Sodium Level 139, Potassium Level 4.0, Chloride Level 106, Carbon Dioxide Level 21, Anion Gap 12, Blood Urea Nitrogen 11, Creatinine 0.81, Estimat Glomerular Filtration Rate > 60, BUN/Creatinine Ratio 14, Glucose Level 188, Calcium Level 9.9, Corrected Calcium 10.3, Total Bilirubin 0.3, Aspartate Amino Transf (AST/SGOT) 19, Alanine Aminotransferase (ALT/SGPT) 18, Alkaline Phosphatase 97, Total Protein 6.3, Albumin 3.5 12/24/19 11:06: Glucometer 190 12/24/19 15:44: Glucometer 184 12/24/19 21:07: Glucometer 250 12/25/19 04:42: Glucometer 193 12/25/19 11:05: Glucometer 161 12/25/19 15:23: Glucometer 219 12/25/19 20:24: Glucometer 218 12/26/19 06:13: Glucometer 204 12/26/19 10:51: Glucometer 227 12/26/19 15:58: Glucometer 158 12/26/19 20:41: Glucometer 196 12/27/19 05:37: Glucometer 199 12/27/19 11:00: Glucometer 199 12/27/19 15:22: Glucometer 191 12/27/19 20:35: Glucometer 213 12/28/19 05:00: Glucometer 246 12/28/19 11:09: Glucometer 255 12/28/19 16:00: Glucometer 195 12/28/19 20:09: Glucometer 143 12/29/19 06:04: Glucometer 190 12/29/19 10:40: Glucometer 212 12/29/19 15:45: Glucometer 132 12/29/19 20:41: Glucometer 187 12/30/19 05:45: White Blood Count 8.4, Red Blood Count 3.59, Hemoglobin 9.4, Hematocrit 31, Mean Corpuscular Volume 85, Mean Corpuscular Hemoglobin 26, Mean Corpuscular H emoglobin Concent 31, Red Cell Distribution Width 15.7, Platelet Count 484, Mean Platelet Volume 8.9, Neutrophils (%) (Auto) 76, Lymphocytes (%) (Auto) 11, Monocytes (%) (Auto) 10, Eosinophils (%) (Auto) 3, Basophils (%) (Auto) 0, Neutrophils # (Auto) 6.3, Lymphocytes # (Auto) 0.9, Monocytes # (Auto) 0.8, Eosinophils # (Auto) 0.3, Basophils # (Auto) 0.0, Sodium Level 140, Potassium Level 4.0, Chloride Level 106, Carbon Dioxide Level 22, Anion Gap 12, Blood Urea Nitrogen 13, Creatinine 0.84, Estimat Glomerular Filtration Rate > 60, BUN/Creatinine Ratio 15, Glucose Level 181, Calcium Level 9.6, Corrected Calcium 10.1, Total Bilirubin 0.2, Aspartate Amino Transf (AST/SGOT) 26, Alanine Aminotransferase (ALT/SGPT) 27, Alkaline Phosphatase 104, Total Protein 6.1, Albumin 3.4 12/30/19 10:53: Glucometer 241 Discharge Home Medications: Active Scripts Active Temazepam 15 Mg Capsule 30 Mg PO HS PRN 30 Days Humalog (Insulin Lispro) 100 Unit/1 Ml Vial 5 Unit SQ BIDAC 1 Days Reported Cranberry (Cranberry Extract) 500 Mg Tablet 500 Mg PO BID D3-2000 (Cholecalciferol (Vitamin D3)) 50 Mcg Capsule 50 Mcg PO BID Vitamin B-6 (Pyridoxine HCl) 100 Mg Tablet 100 Mg PO DAILY Miralax (Polyethylene Glycol 3350) 17 Gm Powd.pack 17 Gm PO DAILY PRN Docusate Sodium 100 Mg Capsule 100 Mg PO PRN PRN Diphenhydramine HCl 25 Mg Capsule 25 Mg PO HS Probiotic (Lactobacillus Acidophilus) 1 Each Capsule 1 Each PO BID Melatonin 10 Mg Capsule 10 Mg PO HS Acetaminophen Extra Strength (Acetaminophen) 500 Mg Tablet 1,000 Mg PO Q6H PRN Tramadol HCl 50 Mg Tablet 50 Mg PO Q6H PRN Pantoprazole Sodium 40 Mg Tablet.dr 40 Mg PO DAILY LAST FILLED 08-14-2019 #90 Atorvastatin Calcium 40 Mg Tablet 40 Mg PO DAILY LAST FILLED 08-08-2019 #90 Instructions to patient/family Please see electronic discharge instructions given to patient. Diagnosis/Problems Diagnosis/Problems (1) Physical debility (2) Urinary tract infection Status: Acute (3) Metastatic lung carcinoma (4) Dyspnea (5) Insulin dependent diabetes mellitus Status: Chronic (6) Dizziness Status: Acute (7) Fall Status: Acute Clinical Quality Measures DVT/VTE Risk/Contraindication: Risk Factor Score Per Nursin RFS Level Per Nursing on Admit: 4+=Very High HELADIO MODI DO Dec 30, 2019 09:02
[2019-12-30] MEDS: inSUlin ASPART (NovoLOG) 1 UNIT/0.01 ML (CHARGE PER UNIT) SC SCH ×3 (09:30→11:00)
[2019-12-30] MEDS: VITAMIN D3 25 MCG (1,000 UNITS) TABLET PO SCH (09:31)
[2019-12-30] MEDS: PANTOPRAZOLE 40 MG (PROTONIX) TAB PO SCH (09:31)
[2019-12-30] MEDS: PYRIDOXINE (VITAMIN B-6) 50 MG TABLET PO SCH (09:31)
[2019-12-30] MEDS: LACTOBACILLUS ACIDOPHILUS (PROBIOTIC) CAPSULE PO SCH (09:31)
--- NOTE | 2019-12-30 10:17 | NUR ---
provided prayer, Communion
[2019-12-30] MEDS: ENOXAPARIN 40 MG/0.4 ML (LOVENOX) SYR SC SCH (10:26)
--- NOTE | 2019-12-30 10:55 | Occupational Ther Daily Note ---
OT Current Status-Daily Note Subjective Pt seen in room, up in bed, agreeable to OT. No pain reported. Appearance Alert, cooperative ADL-Treatment Pt was able to transition from supine to sit EOB without help. Up from bed without help or cues, FWW. Walked SBA, FWW to bathroom. Cues for safety for shower transfer and SBA. Pt education to sit to take clothes off, for safety, but no LOB observed. Undressed with SBA for shower. Pt washed and dried all parts with SBA for standing, setup, use of shower bench, grab bars, hand held shower. Setup upper body dressing. Sat to don pants without help and SBA to pull them up. Shoes on with setup. Walked to sink, FWW to brush teeth, comb hair, SBA for safety but otherwise able to do tasks. SBA walking to toilet and toilet transfer. SBA clothing management, mod I hygiene. Pt educ to use grab bar for safety. Walked back to recliner with FWW, no LOB observed. Pt verbalized she needs occasional help with cutting tough food but is generally mod I with eating. Pt educ that she may want her to stand by when getting in and out of shower at home, with her verbal understanding. Pt left up in recliner, legs elevated, all needs met. Therapy Code Descriptions/Definitions Functional [place] Measure: 0=Not Assessed/NA 4=Minimal Assistance 1=Total Assistance 5=Supervision or Setup 2=Maximal Assistance 6=Modified [place] 3=Moderate Assistance 7=Complete IndependenceSCALE: Activities may be completed with or without assistive devices. 3-Efvgqncjez-nffjjfb completes the activity by him/herself with no assistance from a helper. 5-Set-up or Clean-up Assistance-helper sets up or cleans up; patient completes activity. [place] assists only prior to or following the activity. 4-Supervision or Touching Assistance-helper provides verbal cues and/or touching/steadying and/or contact guard assistance as patient completes activity. Assistance may be provided throughout the activity or intermittently. 3-Partial/Moderate Assistance-helper does LESS THAN HALF the effort. [place] lifts, holds or supports trunk or limbs, but provides less than half the effort. 2-Substantial/Maximal Assistance-helper does MORE THAN HALF the effort. [place] lifts or holds trunk or limbs and provides more than half the effort. 8-Roxyxkkok-pmdash does ALL the effort. Patient does none of the effort to complete the activity. Or, the assistance of 2 or more helpers is required for the patient to complete the activity. If activity was not attempted, code reason: 7-Patient Refused. 9-Not Applicable-not attempted and the patient did not perform the activity before the current illness, exacerbation or injury. 10-Not Attempted due to Environmental Limitations-(lack of equipment, weather restraints, etc.). 88-Not Attempted due to Medical Conditions or Safety Concerns. Shower/Bathe Self (QC): 6 Upper Body Dressing (QC): 5 (setup) Lower Body Dressing (QC): 4 (SBA for pulling pants up/down) On/Off Footwear: 4 (SBA taking shoes on/off. Pt educ to sit rather than stand to take shoes off, for safety) Toileting Hygiene (QC): 4 (SBA for clothing management) Toilet Transfer (QC): 4 (SBA, FWW, grab bar) Education OT Patient Education: Progress toward Goal/Update tx plan, Purpose of tx/f unctional activities, Safety issues, Transfer techniques Teaching Recipient: Patient Teaching Methods: Discussion Response to Teaching: Verbalize Understanding, Return Demonstration OT Short Term Goals Short Term Goals Time Frame: Jan 01, 2020 Toileting hygiene: 4 Shower/bathe self: 4 Upper body dressin Lower body dressin Putting on/taking off footwear: 4 OT Disc Pad Knockout Worker Goals Disc Pad Knockout Worker Goals Time Frame: Jan 10, 2020 Eating (QC): 6 (met) Oral Hygiene (QC): 6 (Not met) Toileting Hygiene (QC): 6 (Not met) Shower/Bathe Self (QC): 6 (Not met) Upper Body Dressing (QC): 6 (Not met) Lower Body Dressing (QC): 6 (Not met) On/Off Footwear (QC): 6 (Not met) Additional Goals: 1-Demonstrate ADL Tasks, 2-Verbalize Understanding, 3- ImproveStrength/Rosanna 1=Demonstrate adherence to instructed precautions during ADL tasks. 2=Patient will verbalize/demonstrate understanding of assistive devices/modifications for ADL. 3=Patient will improve strength/tolerance for activity to enable patient to perform ADL's. OT Education/Plan Discharge Recommendations Plan/Recommendations: Discharge/Goals Met (see tx plan for specifics) Treatment Plan/Plan of Care Patient would benefit from OT for education, treatment and training to promote independence in ADL's, mobility, safety and/or upper extremity function for ADL's. Plan of Care: ADL Retraining, Caregiver Training, Functional Mobility, Group Exercise/Act as Ind, UE Funct Exercise/Act Treatment Duration: Jan 10, 2020 Frequency: At least 5 of 7 days/Wk (IRF) Estimated Hrs Per Day: 1.5 hours per day Agreement: Yes Rehab Potential: Good Time/GCodes Start Time: 09:45 Stop Time: 10:32 Total Time Billed (hr/min): 47 Billed Treatment Time visit, 47 minutes ADL MARLEY BURGER OT Dec 30, 2019 10:55
--- NOTE | 2019-12-30 11:06 | Therapy Team Discharge Summary ---
Therapy Discharge Summary Discharge Recommendations Date of Discharge 12-30-2019 Therapy D/C Recommendations: Occupational Therapy Home Care Occupational Therapy Pt initially needed CGA for bathing, toileting and toilet transfer. Min assist lower body dressing, setup oral hygiene. After skilled OT, pt was able to manage feeding mod I and completed oral hygiene, setup upper body dressing, and bathing, lower body dressing, toileting and toilet transfer with SBA. Pt educ that she may want her standing by when she gets in/out of shower. See tx plan for goals met. Recommend home health OT. DC OT. Decreased Activ Tolerance, Decreased UE Strength PT Legal Director Goals Legal Director Goals PT Custodial Goals Time Frame: Jan 06, 2020 Roll Left to Right (QC): 6 Sit to Lying (QC): 6 Lying-Sitting on Side/Bed(QC): 6 Sit to Stand (QC): 6 Chair/Mgq-ap-Csmkj Xfer(QC): 6 Car Transfer (QC): 5 Does the Patient Walk: Yes Walk 10 feet (QC): 6 Walk 10ft-Uneven Surface(QC): 5 Walk 50ft with 2 Turns (QC): 6 Walk 150 ft (QC): 6 Does the Pt use WC or Scooter?: No 1 Step (curb) (QC): 5 4 Steps (QC): 4 12 Steps (QC): 9 Picking up an Object (QC): 9 OT Custodial Goals Legal Director Goals Time Frame: Jan 10, 2020 Eating (QC): 6 (met) Oral Hygiene (QC): 6 (Not met) Shower/Bathe Self (QC): 6 (Not met) Upper Body Dressing (QC): 6 (Not met) Lower Body Dressing (QC): 6 (Not met) On/Off Footwear (QC): 6 (Not met) Toileting Hygiene (QC): 6 (Not met) Toilet/Commode Transfer (QC): 6 Additional Goals: 1-Demonstrate ADL Tasks, 2-Verbalize Understanding, 3- ImproveStrength/Rosanna 1=Demonstrate adherence to instructed precautions during ADL tasks. 2=Patient will verbalize/demonstrate understanding of assistive devices/modifi cations for ADL. 3=Patient will improve strength/tolerance for activity to enable patient to perform ADL's. MARLEY BURGER OT Dec 30, 2019 11:06
--- NOTE | 2019-12-30 11:40 | NUR ---
CM/SS DISCHARGE IMM2 presented to patient, signature obtained, charted. She is ready to return home, no intention to appeal. Discussed post hospital care plan and options with patient, she does not want HHC or in-home services. Patient stated her spouse would be coming for her later this afternoon. Unit RN aware of discharge.
--- NOTE | 2019-12-30 12:26 | Physical Therapy Daily Note ---
PT Daily Note-Current Subjective Pt. agrees to Rx and feels she is dong well. Looks forward to getting home this afternoon Pain Location: No Pain Reported Mental Status Patient Orientation: Normal For Age Transfers SCALE: Activities may be completed with or without assistive devices. 8-Ngouemnatw-sfmzgfc completes the activity by him/herself with no assistance from a helper. 5-Set-up or Clean-up Assistance-helper sets up or cleans up; patient completes activity. [place] assists only prior to or following the activity. 4-Supervision or Touching Assistance-helper provides verbal cues and/or touching/steadying and/or contact guard assistance as patient completes activity. Assistance may be provided throughout the activity or intermittently. 3-Partial/Moderate Assistance-helper does LESS THAN HALF the effort. [place] lifts, holds or supports trunk or limbs, but provides less than half the effort. 2-Substantial/Maximal Assistance-helper does MORE THAN HALF the effort. [place] lifts or holds trunk or limbs and provides more than half the effort. 2-Vkkcijitr-wdtzri does ALL the effort. Patient does none of the effort to complete the activity. Or, the assistance of 2 or more helpers is required for the patient to complete the activity. If activity was not attempted, code reason: 7-Patient Refused. 9-Not Applicable-not attempted and the patient did not perform the activity before the current illness, exacerbation or injury. 10-Not Attempted due to Environmental Limitations-(lack of equipment, weather restraints, etc.). 88-Not Attempted due to Medical Conditions or Safety Concerns. Roll Left & Right (QC): 6 Sit to Lying (QC): 6 Lying to Sitting/Side of Bed(Q: 6 Sit to Stand (QC): 6 Chair/Vya-jm-Iymmi Xfer(QC): 6 Toilet Transfer (QC): 6 Car Transfer (QC): 6 Weight Bearing Right Lower Extremity: Right Full Weight Bearing Left Lower Extremity: Left Full Weight Bearing Gait Training Does the Patient Walk?: Yes Walk 10 feet (QC): 6 Walk 50 ft with 2 Turns(QC): 6 Walk 150 ft (QC): 6 Walking 10ft/uneven surface-QC: 6 Gait Persons Needed: 0 Gait Assistive Device: FWW Stair Training Stair Training: Handrails/: 2 handrails #of Steps: 4 1 Step (curb) (QC): 5 4 Steps (QC): 5 12 Steps (QC): 7 Stairs: Pattern: Reciprocal Balance Picking up an Object (QC): 88 Assessment Current Status: Good Progress meets goals PT Short Term Goals Short Term Goals Time Frame: Dec 30, 2019 Sit to lyin Lying to sitting on side of be: 5 Sit to stand: 4 Walk 10 feet: 4 Walk 50 feet with two turns: 4 Walk 150 feet: 4 PT Noise Tester Goals Custodial Goals PT Noise Tester Goals Time Frame: Jan 06, 2020 Roll Left & Right (QC): 6 Sit to Lying (QC): 6 Lying-Sitting on Side/Bed(QC): 6 Sit to Stand (QC): 6 Chair/Ilh-nu-Swbbh Xfer(QC): 6 Toilet Transfer (QC): 6 Car Transfer (QC): 5 Does the Patient Walk: Yes Walk 10 feet (QC): 6 Walk 50ft with 2 Turns (QC): 6 Walk 150 ft (QC): 6 Walking 10ft on Uneven Surface: 5 1 Step (curb) (QC): 5 4 Steps (QC): 4 12 Steps (QC): 9 Picking up an Object (QC): 9 Does the Pt use WC or Scooter?: No PT Plan Treatment/Plan Treatment Plan: Continue Plan of Care Treatment Plan: Bed Mobility, Education, Functional Activity Rosanna, Functional Strength, Group Therapy, Gait, Safety, Therapeutic Exercise, Transfers Treatment Duration: Jan 06, 2020 Frequency: At least 5 of 7 days/Wk (IRF) Estimated Hrs Per Day: 1.5 hours per day Patient and/or Family Agrees t: Yes Safety Risks/Education Patient Education: Gait Training, Transfer Techniques, Steps, Correct Positioning, Safety Issues Teaching Recipient: Patient Teaching Methods: Demonstration, Discussion Response to Teaching: Verbalize Understanding, Return Demonstration Time/GCodes Time In: 1200 Time Out: 1225 Total Billed Treatment Time: 25 Total Billed Treatment 1,FAJeanm CHOLO VALENTINE PTA Dec 30, 2019 12:26
== END 2019-12-30 14:40 | disposition home or self-care (01) | DRG 690 ==
PROVIDERS: ADMIT Internal Medicine; ATTEND Internal Medicine
DX: N39.0 Urinary tract infection, site not specified (principal); R29.6 Repeated falls; C34.91 Malignant neoplasm of unspecified part of right bronchus or lung; C77.1 Secondary and unspecified malignant neoplasm of intrathoracic lymph nodes; R53.1 Weakness; I25.10 Atherosclerotic heart disease of native coronary artery without angina pectoris; E78.00 Pure hypercholesterolemia, unspecified; I10 Essential (primary) hypertension; E11.9 Type 2 diabetes mellitus without complications; F32.9 Major depressive disorder, single episode, unspecified; H54.3 Unqualified visual loss, both eyes; Z87.891 Personal history of nicotine dependence; Z79.4 Long term (current) use of insulin; Z90.49 Acquired absence of other specified parts of digestive tract; Z90.710 Acquired absence of both cervix and uterus; Z95.5 Presence of coronary angioplasty implant and graft; B96.1 Klebsiella pneumoniae [K. pneumoniae] as the cause of diseases classified elsewhere
CPT/HCPCS: 36415; 80053; 82962; 85007; 85025; 85027

== ENCOUNTER → 2020-01-31 | Outpatient (CLI) | payer MEDICARE, OTHER ==
[~2020-01-31] MED LIST changes: +CHOL200012 PO; +CRAN500T2 PO; +MELA3TAB39 PO; -MELA3TAB65 PO; +TEMA15CA PO
[2020-01-31 19:30] LABS: BILIRUBIN,URINE NEGATIVE (NEGATIVE); CLARITY,URINE CLEAR; COLOR,URINE YELLOW; GLUCOSE, URINE (UA) NEGATIVE (NEGATIVE); KETONES,URINE NEGATIVE (NEGATIVE); LEUKOCYTE ESTERASE ,URINE 1+ (NEGATIVE); NITRITE,URINE POSITIVE (NEGATIVE); PROTEIN,URINE NEGATIVE (NEGATIVE)
[2020-01-31 19:44] LABS: BACTERIA,URINE LARGE /HPF; WBC,URINE 25-50 /HPF
== END ==
LOC: LABNPT 19:23
PROVIDERS: ATTEND Internal Medicine
DX: Z01.89 Encounter for other specified special examinations (principal)
CPT/HCPCS: 81000; 87077; 87088; 87186

== ENCOUNTER 2020-03-10 14:56 | Emergency (ER) | payer MEDICARE, OTHER ==
[~2020-03-10] VITALS: Ht 160 cm; Wt 52.0 kg
--- NOTE | 2020-03-10 15:05 | ED Dyspnea ---
General Stated Complaint: WEAK COUGH Source of Information: Patient Exam Limitations: No Limitations History of Present Illness Date Seen by Provider: March 10, 2020 Time Seen by Provider: 15:04 Initial Comments To ER by EMS from home with reports of cough and shortness of breath onset today. She has not left her home in over a month. She has a history of lung cancer and CHF. No fevers. Timing/Duration: 24 Hours Severity: Moderate Associated Symptoms: Cough Allergies and Home Medications Allergies Coded Allergies: metronidazole (Verified Allergy, Intermediate, hives, 03/17/17) Sulfa (Sulfonamide Antibiotics) (Verified Allergy, Unknown, 03/20/17) cephalexin (Verified Allergy, Unknown, 01/17/18) ciprofloxacin (Verified Allergy, Unknown, ITCHING, 03/17/17) codeine (Verified Allergy, Unknown, 01/17/18) metoprolol (Verified Allergy, Unknown, 01/17/18) nitrofurantoin (Verified Allergy, Unknown, 01/17/18) Home Medications Acetaminophen 500 Mg Tablet, 1,000 MG PO Q6H PRN for PAIN-MILD, (Reported) Amoxicillin 500 Mg Capsule, 500 MG PO TID Prescribed by: LOPEZ KEE on 03/10/20 1710 Atorvastatin Calcium 40 Mg Tablet, 40 MG PO DAILY, (Reported) LAST FILLED 08-08-2019 #90 Benzonatate 100 Mg Capsule, 100 MG PO TID Prescribed by: LOPEZ KEE on 03/10/20 1635 Cholecalciferol (Vitamin D3) 50 Mcg Capsule, 50 MCG PO BID, (Reported) Cranberry Extract 500 Mg Tablet, 500 MG PO BID, (Reported) Diphenhydramine HCl 25 Mg Capsule, 25 MG PO HS, (Reported) Docusate Sodium 100 Mg Capsule, 100 MG PO PRN PRN for CONSTIPATION-1ST LINE, (Reported) Insulin Lispro 100 Unit/1 Ml Vial, 5 UNIT SQ BIDAC Prescribed by: NOEMY MENDENHALL on 12/29/19 1356 Lactobacillus Acidophilus 1 Each Capsule, 1 EACH PO BID, (Reported) Melatonin 10 Mg Capsule, 10 MG PO HS, (Reported) Pantoprazole Sodium 40 Mg Tablet.dr, 40 MG PO DAILY, (Reported) LAST FILLED 08-14-2019 #90 Polyethylene Glycol 3350 17 Gm Powd.pack, 17 GM PO DAILY PRN for CONSTIPATION- 2ND LINE, (Reported) Pyridoxine HCl 100 Mg Tablet, 100 MG PO DAILY, (Reported) Temazepam 15 Mg Capsule, 30 MG PO HS PRN for insomnia Prescribed by: HELADIO MODI on 12/30/19 0900 Tramadol HCl 50 Mg Tablet, 50 MG PO Q6H PRN for PAIN-MODERATE, (Reported) Patient Home Medication List Home Medication List Reviewed: Yes Review of Systems Review of Systems Constitutional: see HPI EENTM: see HPI Respiratory: see HPI, cough, dyspnea on exertion Genitourinary: no symptoms reported Musculoskeletal: no symptoms reported Skin: no symptoms reported Psychiatric/Neurological: No Symptoms Reported Endocrine: No Symptoms Reported Past Aohwotv-Yxkygg-Axkfce Hx Patient Social History Type Used: Cigarettes Former Smoker, Quit: May 01, 1998 2nd Hand Smoke Exposure: No Recent Hopitalizations: No Immunizations Up To Date Tetanus Booster (TDap): Unknown PED Vaccines UTD: No Date of Pneumonia Vaccine: May 17, 2016 Date of Influenza Vaccine: Sep 29, 2017 Seasonal Allergies Seasonal Allergies: No Past Medical History Surgeries: Yes Appendectomy, Bladder Surgery, Cardiac, Coronary Stent, Gallbladder, Hysterectomy, Vascular Surgery Respiratory: No Pneumonia Currently Using CPAP: No Currently Using BIPAP: No Cardiac: Yes (STENTS, 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) Coronary Artery Disease, High Cholesterol, Hypertension, Peripheral Vascular Neurological: No Reproductive Disorders: Yes Female Reproductive Disorders: Denies TEST BAKER History: Menopausal Sexually Transmitted Disease: No HIV/AIDS: No Genitourinary: Yes (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 0.0oz. 65.044324oi; 22.87 BMI Method:Stated General Appearance: No Apparent Distress, WD/WN Neck: Full Range of Motion, Normal Inspection Respiratory: Normal Breath Sounds, No Accessory Muscle Use, No Respiratory Distress Cardiovascular: Regular Rate, Rhythm, Normal Peripheral Pulses Gastrointestinal: Normal Bowel Sounds, Non Tender, Soft Neurologic/Psychiatric: Alert, Oriented x3 Skin: Normal Color, Warm/Dry Progress/Results/Core Measures Results/Orders Lab Results Laboratory Tests Test 03/10/20 15:10 03/10/20 16:45 Range/Units White Blood Count 11.4 H 4.3-11.0 10^3/uL Red Blood Count 3.82 L 4.35-5.85 10^6/uL Hemoglobin 9.5 L 11.5-16.0 G/DL Hematocrit 32 L 35-52 % Mean Corpuscular Volume 83 80-99 FL Mean Corpuscular Hemoglobin 25 25-34 PG Mean Corpuscular Hemoglobin Concent 30 L 32-36 G/DL Red Cell Distribution Width 16.1 H 10.0-14.5 % Platelet Count 570 H 130-400 10^3/uL Mean Platelet Volume 9.3 7.4-10.4 FL Neutrophils (%) (Auto) 84 H 42-75 % Lymphocytes (%) (Auto) 8 L 12-44 % Monocytes (%) (Auto) 6 0-12 % Eosinophils (%) (Auto) 2 0-10 % Basophils (%) (Auto) 0 0-10 % Neutrophils # (Auto) 9.6 H 1.8-7.8 X 10^3 Lymphocytes # (Auto) 1.0 1.0-4.0 X 10^3 Monocytes # (Auto) 0.7 0.0-1.0 X 10^3 Eosinophils # (Auto) 0.2 0.0-0.3 10^3/uL Basophils # (Auto) 0.0 0.0-0.1 10^3/uL Sodium Level 137 135-145 MMOL/L Potassium Level 4.3 3.6-5.0 MMOL/L Chloride Level 98 98-107 MMOL/L Carbon Dioxide Level 23 21-32 MMOL/L Anion Gap 16 H 5-14 MMOL/L Blood Urea Nitrogen 14 7-18 MG/DL Creatinine 0.97 0.60-1.30 MG/DL Estimat Glomerular Filtration Rate 55 BUN/Creatinine Ratio 14 Glucose Level 241 H 70-105 MG/DL Calcium Level 10.6 H 8.5-10.1 MG/DL Corrected Calcium 10.5 H 8.5-10.1 MG/DL Total Bilirubin 0.4 0.1-1.0 MG/DL Aspartate Amino Transf (AST/SGOT) 21 5-34 U/L Alanine Aminotransferase (ALT/SGPT) 9 0-55 U/L Alkaline Phosphatase 119 40-136 U/L B-Type Natriuretic Peptide 13.9 <100.0 PG/ML Total Protein 8.1 6.4-8.2 GM/DL Albumin 4.1 3.2-4.5 GM/DL Urine Color YELLOW Urine Clarity CLEAR Urine pH 5.5 5-9 Urine Specific [place] 1.020 1.016-1.022 Urine Protein NEGATIVE NEGATIVE Urine Glucose (UA) TRACE H NEGATIVE Urine Ketones NEGATIVE NEGATIVE Urine Nitrite NEGATIVE NEGATIVE Urine Bilirubin NEGATIVE NEGATIVE Urine Urobilinogen 0.2 < = 1.0 MG/DL Urine Leukocyte Esterase 1+ H NEGATIVE Urine RBC (Auto) NEGATIVE NEGATIVE Urine RBC NONE /HPF Urine WBC 10-25 H /HPF Urine Crystals NONE /LPF Urine Bacteria FEW H /HPF Urine Casts NONE /LPF Urine Mucus NEGATIVE /LPF Urine Yeast FEW H /HPF Urine Culture Indicated YES My Orders Orders - LOPEZ KEE ROCKET [employer]OR TESTER Cbc With Automated Diff (03/10/20 14:58) Comprehensive Metabolic Panel (03/10/20 14:58) BNP (03/10/20 14:58) Chest 1 View, Ap/Pa Only (03/10/20 14:58) Ed Iv/Invasive Line Start (03/10/20 14:58) Albuterol/Ipra Inhalation Soln (Duoneb I (03/10/20 15:15) Svn Small Volume Nebulizer (03/10/20 15:02) Ua Culture If Indicated (03/10/20 15:10) Iohexol Injection (Omnipaque 350 Mg/Ml 1 (03/10/20 15:45) Received Contrast (Hold Metformin- Contr (03/10/20 15:45) Ns (Ivpb) (Sodium Chloride 0.9% Ivpb Bag (03/10/20 15:45) Urine Culture (03/10/20 16:45) Medications Given in ED Current Medications Medications Dose Ordered Sig/Miri Route Start Time Stop Time Status Last Admin Dose Admin Albuterol/ Ipratropium 3 ml ONCE ONCE INH 03/10/20 15:15 03/10/20 15:16 DC 03/10/20 15:15 3 ML Vital Signs/I&O 03/10/20 03/10/20 03/10/20 15:08 15:15 17:15 Temp 36.7 36.7 Pulse 99 99 Resp 20 20 B/P (MAP) 145/71 (95) 140/73 (95) Pulse Ox 97 97 O2 Delivery Room Air Non Rebreather Non Rebreather O2 Flow Rate 15.00 15.00 Departure Communication (Admissions) 1634-while in CT, the IV blew with injection of saline. Attempted restart of IV by CT staff. Patient refused, states she just wants to go home. We will have her sign refusal of services form. Impression Primary Impression: Cough Additional Impressions: Lung cancer Urinary tract infection Disposition: HOME, SELF-CARE Condition: Stable Departure-Patient Inst. Decision time for Depature: 16:35 Referrals: SUN MIJARES MD (PCP/Family) Primary Care Physician Patient Instructions: Lung Cancer (DC) Add. Discharge Instructions: 1. Medication as directed 2. Follow-up with your doctor this week 3. Return to ER for any worsening. Scripts Amoxicillin (Amoxicillin) 500 Mg Capsule 500 MG PO TID, #15 CAP Prov: LOPEZ KEE [employer]ET [employer]OR TESTER 03/10/20 Benzonatate (TESSALON PERLES) 100 Mg Capsule 100 MG PO TID, #10 CAP Prov: LOPEZ KEE [employer]ET [employer]OR TESTER 03/10/20 LOPEZ KEE [employer]ET [employer]OR TESTER March 10, 2020 15:05
[2020-03-10] MEDS ORDERED: RT-ALBUTEROL/IPRATROPIUM 3 ML (DUONEB) VIAL INH ONE (15:15)
[2020-03-10 15:24] LABS: BASOPHILS % (AUTO) 0 % (0-10); EOSINOPHILS # (AUTO) 0.2 10^3/uL (0.0-0.3); EOSINOPHILS % (AUTO) 2 % (0-10); HEMATOCRIT 32 % (35-52); HEMOGLOBIN 9.5 G/DL (11.5-16.0); LYMPHOCYTES % (AUTO) 8 % (12-44); MEAN CORPUSCULAR HEMOGLOBIN 25 PG (25-34); MEAN CORPUSCULAR HGB CONC 30 G/DL (32-36); MEAN CORPUSCULAR VOLUME 83 FL (80-99); MEAN PLATELET VOLUME 9.3 FL (7.4-10.4); MONOCYTES # (AUTO) 0.7 X 10^3 (0.0-1.0); MONOCYTES % (AUTO) 6 % (0-12); NEUTROPHILS # (AUTO) 9.6 X 10^3 (1.8-7.8); NEUTROPHILS % (AUTO) 84 % (42-75); PLATELET COUNT 570 10^3/uL (130-400); RED CELL DISTRIBUTION WIDTH 16.1 % (10.0-14.5); WHITE BLOOD COUNT 11.4 10^3/uL (4.3-11.0)
[2020-03-10 15:32] LABS: ALBUMIN 4.1 GM/DL (3.2-4.5)
[2020-03-10 15:33] LABS: POTASSIUM 4.3 MMOL/L (3.6-5.0)
[2020-03-10 15:34] LABS: CALCIUM 10.6 MG/DL (8.5-10.1)
[2020-03-10 15:35] LABS: TOTAL PROTEIN 8.1 GM/DL (6.4-8.2)
[2020-03-10 15:37] LABS: BILIRUBIN,TOTAL 0.4 MG/DL (0.1-1.0)
[2020-03-10 15:39] LABS: CREATININE SERUM 0.97 MG/DL (0.60-1.30)
--- NOTE | 2020-03-10 15:41 | Diagnostic Imaging Report ---
EXAMINATION: Chest 1 view HISTORY: Cough. History of lung cancer. COMPARISON: Chest radiograph on 12/23/2019. FINDINGS: Redemonstration of the consolidative mass in the right perihilar region, measuring 7.0 x 6.9 cm on today's exam, previously measuring 6.1 x 4.3 cm. A component of atelectasis may also be present, causing enlargement of the area of opacification. Subsegmental atelectasis is noted in the right midlung. There is also tenting of the right lung base related to volume loss and atelectasis. No evidence of pleural effusion or pneumothorax. The left hemithorax is well aerated. The cardiac silhouette is unremarkable. No acute osseous abnormalities. IMPRESSION: 1. Interval increase in size in the consolidative opacity in the right perihilar region, representing the patient's history of lung cancer. This may represent increase in size in the lung mass and/or increase in associated atelectasis. Increased volume loss is also noted in the right hemithorax. Dictated by: Dictated on workstation # [id number]
[2020-03-10] MEDS ORDERED: NS 100 ML (IVPB) BAG IV ONE (15:45)
[2020-03-10] MEDS ORDERED: IOHEXOL 350 MG/ML 100 ML (OMNIPAQUE 350) VIAL IV ONE (15:45)
[2020-03-10] MEDS ORDERED: HOLD METFORMIN - RECEIVED CONTRAST 20 ML VIAL IV SCH (15:45)
--- NOTE | 2020-03-10 16:34 | NUR ---
IV BLEW OUT WHILE PT WAS IN CT, CT STAFF TRIED TO RE-START THE IV AND WAS UNSUCCESSFUL AT WHICH POINT PT STATED THAT SHE JUST WANTED TO GO HOME.
[2020-03-10] MEDS ORDERED: BENZ100C18 PO (16:35)
[2020-03-10 16:56] LABS: BILIRUBIN,URINE NEGATIVE (NEGATIVE); CLARITY,URINE CLEAR; COLOR,URINE YELLOW; GLUCOSE, URINE (UA) TRACE (NEGATIVE); KETONES,URINE NEGATIVE (NEGATIVE); LEUKOCYTE ESTERASE ,URINE 1+ (NEGATIVE); NITRITE,URINE NEGATIVE (NEGATIVE); PH,URINE 5.5 (5-9); PROTEIN,URINE NEGATIVE (NEGATIVE)
[2020-03-10 17:05] LABS: BACTERIA,URINE FEW /HPF; YEAST,URINE FEW /HPF
[2020-03-10] MEDS ORDERED: AMOX500C2 PO (17:10)
[2020-03-10 17:15] VITALS: BP 140/73
--- OUTSIDE RECORDS SUMMARY | 2020-03-10 18:42 | XMS REPORT | Continuity of Care Document ---
Author Organization Unknown Address Unknown Phone Unavailable Allergies Active Description Code Type Severity Reaction Onset Reported/Identified Relationship to Patient Clinical Status Yes metronidazole [id number] Rob g Allergy Moderate hives 03/20/2017 Yes ciprofloxacin [id number] Rob g Allergy Unknown ITCHING 03/20/2017 Yes Sulfa (Sulfonamide Antibiotics) [id number] Drug Allergy Unknown N/A 017 Yes cephalexin [id number] Drug Allerg y Unknown N/A 01/17/2018 Yes codeine [id number] Drug Allergy Unknown N/A 01/17/2018 Yes metoprolol [id number] Drug Allerg y Unknown N/A 01/17/[id number] ug Allergy Unknown N/A 01/17/2018 Medications There is no data. Problems Date [...] URIN TRACT INFECTION NOS 10/19/2011 Ot 618.2 UTER OVAG PROLAPS- INCOMPL 10/19/2011 Ot 618.6 VAGI NAL ENTEROCELE 10/19/2011 Ot 625.6 FEM STRESS INCONTINENCE 10/19/2011 Ot 788.20 RET ENTION OF URINE NOS 10/26/2011 Ot 250.00 MAGDIEL B RAMSES WO COMPL, TYPE II OR UNSPEC TY 10/26/2011 Ot 272.4 HYPE RLIPIDEMIA NEC/NOS 10/26/2011 Ot 276.50 VOL UME DEPLETION, UNSPECIFIED 10/26/2011 Ot 311 DEPRES SIVE DISORDER NEC 10/26/2011 Ot 558.9 MAGDA NF GASTROENTERIT NEC 10/26/2011 Ot 788.20 RET ENTION OF URINE NOS 10/26/2011 Ot 997.5 SURG COMPL-URINARY TRACT 10/26/2011 Ot E878.8 ABN REACT-SURG PROC NEC 12/30/2011 Ot 535.60 DUO DENITIS, WITHOUT MENTION OF HEMORRHAG 12/30/2011 Ot 571.8 CERTIFIED PHARMACY TECHNICIAN JON LIVER DIS NEC 12/30/2011 Ot 599.0 URIN TRACT INFECTION NOS 12/30/2011 Ot 789.09 ABD OMINAL PAIN, OTHER SPECIFIED SITE 12/30/2011 Ot V58.69 OTH MED,LT,CURRENT USE 10/03/2013 JUDITH HINES MD Ot 250.00 DIAB RAMSES WO COMPL, TYPE II OR UNSPEC TY 10/03/2013 JUDITH HINES MD Ot 780 .4 DIZZINESS AND GIDDINESS 10/03/2013 JUDITH HINES MD Ot V58.69 OTH MED,LT,CURRENT USE 01/22/2014 ALBERTO NAZARIO MD Ot 455.0 INT HEMORRHOID W/O COMPL 01/22/2014 ALBERTO NAZARIO MD Ot 455.3 EXT HEMORRHOID W/O COMPL 01/22/2014 ABLERTO NAZARIO MD Ot 562.10 DIVERTICULOSIS COLON (W/O [...] 300.4 DYSTHYMIC DISORDER 08/05/2014 JACQUELIN RAHMAN FACC, ALI FACP CCDS Ot 414.01 CORONARY ATHEROSCLEROSIS OF [place] CORON 08/05/2014 JACQUELIN RAHMAN FACC, JAZMIN FACP CCDS Ot 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 2 04/22/2015 ALLISON GLORIA MD Ot 722. 52 08/18/2015 Ot 433.10 08/18/2015 Ot V76.12 08/18/2015 Ot 285.9 08/18/2015 Ot 618.6 08/18/2015 Ot 625.6 08/18/2015 Ot V72.63 08/18/2015 Ot V74.8 08/18/2015 Ot 599.0 08/18/2015 NEEMA HENSLEY [facility] LOCATION MANAGER Ot 414.00 08/18/2015 NEEMA HENSLEYP Ot 786.09 08/18/2015 KAYLEIGH RAHMAN, FELIBERTO P Ot 724.9 08/18/2015 ARAVIND RAHMAN, ANNAARICCO Ot V72.84 08/18/2015 FAIZAN RAHMAN, ALLISON R Ot 611. 72 08/18/2015 FAIZAN RAHMAN, ALLISON R Ot V76. 12 08/18/2015 ARAVIND RAHMAN, TAKAAKI Ot V72.84 08/18/2015 FAIZAN RAHMAN, ALLISON R Ot 593. 2 08/18/2015 FAIZAN RAHMAN, ALLISON R Ot 722. 52 08/20/2015 JACQUELIN RAHMAN FACC, ALI FACP CCDS [...] FACC, ALI FACP CCDS Ot R53.83 09/01/2015 FAIZAN RAHMAN, ALLISON R Ot R11. 10 09/01/2015 FAIZAN RAHMAN, ALLISON R Ot R19. 7 09/07/2015 FAIZAN RAHMAN ALLSION R Ot D50. 0 IRON DEFICIENCY ANEMIA SECONDARY TO BLOO 09/07/2015 FAIZAN RAHMAN ALLISON R Ot E11. 9 TYPE 2 DIABETES MELLITUS WITHOUT COMPLIC 09/07/2015 CHANDNI GLORIA MDYD R Ot E78. 0 PURE HYPERCHOLESTEROLEMIA 09/07/2015 FAIZAN RAHMAN ALLISON R Ot I25. 10 ATHSCL HEART DISEASE OF [place] CORONARY 09/07/2015 FAIZAN RAHMAN, ALLISON R Ot J18. 9 PNEUMONIA, UNSPECIFIED ORGANISM 09/07/2015 ALLISON GLORIA MD R Ot K21. 9 GASTRO-ESOPHAGEAL REFLUX DISEASE WITHOUT 09/07/2015 ALLISON GLORIA MD, Ot K44. 9 DIAPHRAGMATIC HERNIA WITHOUT OBSTRUCTION 09/07/2015 ALLISON GLORIA MD, Ot K57. 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 2 THIRD DEGREE HEMORRHOIDS 09/07/2015 ALLISON GLORIA MD, Ot T45.515A ADVERSE EFFECT OF ANTICOAGULANTS, INITIA 09/07/2015 ALLISON GLORIA MD, Ot Z23 ENCOUNTER FOR IMMUNIZATION 09/07/2015 ALLISON GLORIA MD, Ot Z86. 79 PERSONAL HISTORY OF OTHER DISEASES OF TH 09/07/2015 ALLISON GLORIA MD, Ot Z87.891 PERSONAL HISTORY OF NICOTINE DEPENDENCE 09/07/2015 ALLISON GLORIA MD, Ot Z95.820 PERIPHERAL VASCULAR ANGIOPLASTY STATUS W 09/11/2015 JACQUELIN NORWOODC, ALI FACP CCDS Ot E11.9 09/11/2015 JACQUELIN NORWOODC, ALI FACP CCDS Ot E78.5 09/11/2015 JACQUELIN NORWOODC, ALI FACP CCDS Ot I25.10 09/11/2015 JACQUELIN NORWOODC, ALI FACP CCDS Ot I65.29 09/11/2015 JACQUELIN NORWOODC, ALI FACP CCDS Ot I73.9 09/11/2015 JACQUELIN NORWOODC, ALI FACP CCDS Ot I77.9 09/11/2015 JACQUELIN NORWOODC, ALI FACP CCDS Ot M54.9 09/11/2015 JACQUELIN RAHMAN FACC, ALI FACP CCDS Ot R06.09 09/11/2015 JACQUELIN RAHMAN FACC, ALI FACP CCDS Ot R53.83 09/21/2015 JACQUELIN RAHMAN FACC, ALI FACP CCDS Ot E11.9 09/21/2015 JACQUELIN RAHMAN FACC, ALI FACP CCDS Ot E78.5 09/21/2015 JACQUELIN RAHMAN FACC, ALI FACP CCDS Ot I25.10 09/21/2015 JACQUELIN NORWOODC, ALI FACP CCDS Ot I65.29 09/21/2015 JACQUELIN RAHMAN FACC, ALI FACP CCDS Ot I73.9 09/21/2015 JACQUELIN NORWOODC, ALI FACP CCDS Ot I77.9 09/21/2015 JACQULEIN NORWOODC, ALI [facility] CCDS Ot M54.9 09/21/2015 JACQUELIN RAHMAN FAC, ALI FACP CCDS Ot R06.09 09/21/2015 JACQUELIN RAHMAN FAC, [facility] Ot R53.83 09/28/2015 FAIZAN RAHMAN, ALLISON R Ot R11. 10 09/28/2015 FAIZAN RAHMAN, ALLISON R Ot R19. 7 10/07/2015 FAIZAN RAHMAN, ALLISON R Ot D50. 0 10/12/2015 FAIZAN RAHMAN, ALLISON R Ot D50. 0 10/12/2015 ALBERTO NAZARIO MD Ot E11.9 TYPE 2 DIABETES MELLITUS WITHOUT COMPLIC 10/12/2015 ALBERTO NAZARIO MD Ot E78.0 PURE HYPERCHOLESTEROLEMIA 10/12/2015 ALBERTO NAZARIO MD Ot I10 ESSENTIAL (PRIMARY) HYPERTENSION 10/12/2015 ALBERTO NAZARIO MD Ot I25.10 ATHSCL HEART DISEASE OF [place] CORONARY 10/12/2015 ALBERTO NAZARIO MD Ot K21.9 GASTRO-ESOPHAGEAL REFLUX DISEASE WITHOUT 10/12/2015 ALBERTO NAZARIO MD Ot K64.2 THIRD DEGREE HEMORRHOIDS 10/12/2015 ALBERTO NAZARIO MD Ot R09.02 HYPOXEMIA 10/12/2015 ALBERTO NAZARIO MD Ot R33.9 RETENTION OF URINE, UNSPECIFIED 10/12/2015 ALBERTO NAZARIO MD Ot Z87.89 1 PERSONAL HISTORY OF NICOTINE DEPENDENCE 10/29/2015 ALBERTO NAZARIO MD Ot K64.2 10/29/2015 ALBERTO NAZARIO MD Ot Z01.81 2 10/29/2015 ALBERTO NAZARIO MD Ot Z11.2 11/08/2015 CARLTON FITZGERALD MD Ot K57. 90 DVRTCLOS OF INTEST, PART UNSP, W/O PERF 11/08/2015 CARLTON FITZGERALD MD Ot R10. 31 RIGHT LOWER QUADRANT PAIN 11/16/2015 ALLISON GLORIA MD R Ot A04. 7 ENTEROCOLITIS DUE TO CLOSTRIDIUM DIFFICI 11/16/2015 ALLISON GLORIA MD R Ot E11. 9 TYPE 2 DIABETES MELLITUS WITHOUT COMPLIC 11/16/2015 ALLISON GLORIA MD R Ot E86. 9 VOLUME DEPLETION, UNSPECIFIED 11/16/2015 FAIZAN RAHMAN, ALLISON R Ot F32. 9 MAJOR DEPRESSIVE DISORDER, SINGLE EPISOD 11/16/2015 FAIZAN RAHMAN, ALLISON R Ot I10 ESSENTIAL (PRIMARY) HYPERTENSION 11/16/2015 FAIZAN RAHMAN, ALLISON R Ot K21. 9 GASTRO-ESOPHAGEAL REFLUX DISEASE WITHOUT 11/16/2015 FAIZAN RAHMAN, ALLISON R Ot Z23 ENCOUNTER FOR IMMUNIZATION 11/19/2015 FAIZAN RAHMAN, ALLISON R Ot R11. 10 11/19/2015 FAIZAN RAHMAN, ALLISON R Ot R19. 7 11/29/2015 FAIZAN RAHMAN, ALLISON R Ot R11. 10 VOMITING, UNSPECIFIED 11/29/2015 FAIZAN RAHMAN, ALLISON R Ot R19. 7 DIARRHEA, UNSPECIFIED 02/28/2016 FAIZAN RAHMAN, ALLISON R Ot R11. 10 VOMITING, UNSPECIFIED 02/28/2016 FAIZAN RAHMAN, ALLISON R Ot R19. 7 DIARRHEA, UNSPECIFIED 03/30/2016 FAIZAN RAHMAN, ALLISON R Ot R11. 10 VOMITING, UNSPECIFIED 03/30/2016 FAIZAN RAHMAN, ALLISON R Ot R19. 7 DIARRHEA, UNSPECIFIED 05/19/2016 DONNY RAHMAN, JUDITH Longoria Ot K59.00 CONSTIPATION, UNSPECIFIED 05/20/2016 JUDITH HINES MD Ot K59.00 CONSTIPATION, UNSPECIFIED 05/30/2016 FAIZAN RAHMAN, ALLISON R Ot R11. 10 VOMITING, UNSPECIFIED 05/30/2016 FAIZAN RAHMAN, ALLISON R Ot R19. 7 DIARRHEA, UNSPECIFIED 10/11/2016 Ot V76.12 OTH SCREEN MAMMO- MALIGN NEOPLASM OF [place] 10/11/2016 Ot 285.9 ANEM IA NOS 10/11/2016 Ot 618.6 VAGI NAL ENTEROCELE 10/11/2016 Ot 625.6 FEM STRESS INCONTINENCE 10/11/2016 Ot V72.63 PRE -PROCEDURAL LABORATORY EXAMINATION 10/11/2016 Ot V74.8 SCRE EN-BACTERIAL DIS NEC 10/11/2016 Ot 599.0 URIN TRACT INFECTION NOS 10/11/2016 NEEMA HENSLEY [facility] LOCATION MANAGER Ot 414.00 CORON ATHEROSCLER NOS TYPE VESSEL, NATIV 10/11/2016 NEEMA HENSLEY [facility] LOCATION MANAGER Ot 786.09 RESPIRATORY ABNORM NEC 10/11/2016 KAYLEIGH RAHMAN, FELIBERTO P Ot 724.9 BACK DISORDER NOS 10/11/2016 ARAVIND RAHMAN, ALBERTO Ot V72.84 EXAM PRE-OPERATIVE NOS 10/11/2016 ALLISON GLORIA MD R Ot 611. 72 LUMP OR MASS IN BREAST 10/11/2016 ALLISON GLORIA MD R Ot V76. 12 OTH SCREEN MAMMO-MALIGN NEOPLASM OF [place] 10/11/2016 ALBERTO NAZARIO MD Ot V72.84 EXAM PRE-OPERATIVE NOS 10/11/2016 ALLISON GLORIA MD R Ot 593. 2 CYST OF KIDNEY, ACQUIRED 10/11/2016 ALLISON GLORIA MD R Ot 722. 52 LUMB/LUMBOSAC DISC DEGEN 10/11/2016 JACQUELIN RAHMAN FACC, JAZMIN FACP CCDS Ot E11.9 TYPE 2 DIABETES MELLITUS WITHOUT COMPLIC 10/11/2016 JACQUELIN RAHMAN FACC, ALI FACP CCDS Ot E78.5 HYPERLIPIDEMIA, UNSPECIFIED 10/11/2016 JACQUELIN RAHMAN FACC, ALI FACP CCDS Ot I25.10 ATHSCL HEART DISEASE OF [place] CORONARY 10/11/2016 JACQUELIN RAHMAN FACC, ALI FACP [...] CCDS Ot I25.10 ATHSCL HEART DISEASE OF [place] CORONARY 10/11/2016 JACQUELIN RAHMAN FACC, ALI FACP CCDS Ot I65.29 OCCLUSION AND STENOSIS OF UNSPECIFIED CA 10/11/2016 JACQUELIN RAHMAN FACC, ALI FACP CCDS Ot I73.9 PERIPHERAL VASCULAR DISEASE, UNSPECIFIED 10/11/2016 JACQUELIN RAHMAN FACC, ALI FACP CCDS Ot I77.9 DISORDER OF ARTERIES AND ARTERIOLES, UNS 10/11/2016 JACQUELIN RAHMAN FACC, ALI FACP CCDS Ot M54.9 DORSALGIA, UNSPECIFIED 10/11/2016 JACQUELIN NORWOODC, ALI FACP CCDS Ot R06.09 OTHER FORMS OF DYSPNEA 10/11/2016 JACQUELIN NORWOODC, ALI FACP CCDS Ot R53.83 OTHER FATIGUE 10/11/2016 FAIZAN RAHMAN, ALLISON R Ot R11. 10 VOMITING, UNSPECIFIED 10/11/2016 ALLISON GLORIA MD R Ot R19. 7 DIARRHEA, UNSPECIFIED 10/11/2016 CHANDNI GLORIA MDYD R Ot D50. 0 IRON DEFICIENCY ANEMIA SECONDARY TO BLOO 10/11/2016 ALBERTO NZAARIO MD Ot K64.2 THIRD DEGREE HEMORRHOIDS 10/11/2016 ALBERTO NAZARIO MD Ot Z01.81 2 ENCOUNTER FOR PREPROCEDURAL LABORATORY E 10/11/2016 ALBERTO NAZARIO MD Ot Z11.2 ENCOUNTER FOR SCREENING FOR OTHER BACTER 10/11/2016 Ot R11.10 VOM ITING, UNSPECIFIED 10/11/2016 Ot R19.7 DIAR ROGER, UNSPECIFIED 10/12/2016 JACQUELIN NORWOOD, ALI FACP CCDS Ot E78.4 OTHER HYPERLIPIDEMIA 10/12/2016 JACQUELIN RAHMAN FACC, ALI FACP CCDS Ot I25.10 ATHSCL HEART DISEASE OF [place] CORONARY 10/12/2016 JACQUELIN NORWOODC, ALI FACP CCDS Ot 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 10/12/2016 JACQUELIN RAHMAN FACC, ALI FACP CCDS Ot K21.9 GASTRO-ESOPHAGEAL REFLUX DISEASE WITHOUT 10/12/2016 JACQUELIN RAHMAN FACC, ALI FACP CCDS Ot R53.83 OTHER FATIGUE 10/14/2016 DIANE PORTILLO MD Ot R10.13 EPIGASTRIC PAIN 10/14/2016 DIANE PORTILLO MD Ot Z01.818 ENCOUNTER FOR OTHER PREPROCEDURAL EXAMIN 10/17/2016 PORTILLO MD, DIANE M Ot E11.9 TYPE 2 DIABETES MELLITUS WITHOUT COMPLIC 10/17/2016 LINDSEY RAHMAN, DIANE M Ot K20.9 ESOPHAGITIS, UNSPECIFIED 10/17/2016 LINDSEY RAHMAN, DIANE M Ot K25.9 GASTRIC ULCER, UNSP ACUTE OR CHRONIC, 10/18/2016 LINDSEY RAHMAN, DIANE M Ot E11.9 TYPE 2 DIABETES MELLITUS WITHOUT COMPLIC 10/18/2016 LINDSEY RAHMAN, DIANE M Ot K20.9 ESOPHAGITIS, UNSPECIFIED 10/18/2016 LINDSEY RAHMAN, DIANE M Ot K25.9 GASTRIC ULCER, UNSP ACUTE OR CHRONIC, 10/27/2016 LINDSEY RAHMAN, DIANE M Ot E11.9 TYPE 2 DIABETES MELLITUS WITHOUT COMPLIC 10/27/2016 LINDSEY RAHMAN, DIANE M Ot K20.9 ESOPHAGITIS, UNSPECIFIED 10/27/2016 LINDSEY RAHMAN, DIANE M Ot K25.9 GASTRIC ULCER, UNSP ACUTE OR CHRONIC, 10/27/2016 YUNIER, [facility]FFIN [facility] [facility] LOCATION MANAGER Ot E11.9 TYPE 2 DIABETES MELLITUS WITHOUT COMPLIC 10/27/2016 YUNIER, [employer] LOCATION MANAGER Ot K76.0 FATTY (CHANGE OF) LIVER, NOT ELSEWHERE C 10/27/2016 YUNIER, [employer] [facility] LOCATION MANAGER Ot N32.9 BLADDER DISORDER, UNSPECIFIED 10/27/2016 YUNIER, [facility] [facility] LOCATION MANAGER Ot R19.7 DIARRHEA, UNSPECIFIED 10/27/2016 YUNIER, [facility] LOCATION MANAGER Ot Z79.82 GANG HEMSTITCHING MACHINE OPERATOR (CURRENT) USE OF ASPIRIN 10/27/2016 YUNIER, [facility] LOCATION MANAGER Ot Z79.84 GANG HEMSTITCHING MACHINE OPERATOR (CURRENT) USE OF ORAL HYPOGLYC 10/27/2016 YUNIER [facility] LOCATION MANAGER Ot Z79.899 OTHER SNF (CURRENT) DRUG THERAPY 10/28/2016 YUNIER, [employer] [facility] [facility] LOCATION MANAGER Ot E11.9 TYPE 2 DIABETES MELLITUS WITHOUT COMPLIC 10/28/2016 YUNIER, [employer] [facility] [facility] LOCATION MANAGER Ot K76.0 FATTY (CHANGE OF) LIVER, NOT ELSEWHERE C 10/28/2016 YUNIER, [employer] [facility] LOCATION MANAGER Ot N32.9 BLADDER DISORDER, UNSPECIFIED 10/28/2016 YUNIER, [employer] [facility] [facility] LOCATION MANAGER Ot R19.7 DIARRHEA, UNSPECIFIED 10/28/2016 YUNIER, [employer] [facility] [facility] LOCATION MANAGER Ot Z79.82 SNF (CURRENT) USE OF ASPIRIN 10/28/2016 YUNIER, [facility] [facility] LOCATION MANAGER Ot Z79.84 GANG HEMSTITCHING MACHINE OPERATOR (CURRENT) USE OF ORAL HYPOGLYC 10/28/2016 GRIFFIN FAYE [facility] LOCATION MANAGER Ot Z79.899 OTHER GANG HEMSTITCHING MACHINE OPERATOR (CURRENT) DRUG THERAPY 10/28/2016 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 Ot E11 .9 TYPE 2 DIABETES MELLITUS WITHOUT COMPLIC 10/28/2016 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 Ot N32 .9 BLADDER DISORDER, UNSPECIFIED 10/28/2016 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 Ot R11 .2 NAUSEA WITH VOMITING, UNSPECIFIED 10/28/2016 OLPEZ KEE VEHICLE RETURN ASSOCIATE Ot R19 .7 DIARRHEA, UNSPECIFIED 10/28/2016 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 Ot Z79.82 GANG HEMSTITCHING MACHINE OPERATOR (CURRENT) USE OF ASPIRIN 10/28/2016 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 Ot Z79.84 SNF (CURRENT) USE OF ORAL HYPOGLYC 10/28/2016 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 Ot Z79.899 OTHER SNF (CURRENT) DRUG THERAPY 10/30/2016 GRIFFIN FAYE [facility] HOME LOCATION MANAGER Ot E11.9 TYPE 2 DIABETES MELLITUS WITHOUT COMPLIC 10/30/2016 GRIFFIN FAYE [employer] HOME LOCATION MANAGER Ot K76.0 FATTY (CHANGE OF) LIVER, NOT ELSEWHERE C 10/30/2016 YUNIER GRIFFIN [facility] [facility] LOCATION MANAGER Ot N32.9 BLADDER DISORDER, UNSPECIFIED 10/30/2016 GRIFFIN FAYE [employer]ERAL HOME LOCATION MANAGER Ot R19.7 DIARRHEA, UNSPECIFIED 10/30/2016 YUNIER GRIFFIN [facility] [facility] LOCATION MANAGER Ot Z79.82 SNF (CURRENT) USE OF ASPIRIN 10/30/2016 GRIFFIN FAYE [facility]ER[employer] HOME LOCATION MANAGER Ot Z79.84 GANG HEMSTITCHING MACHINE OPERATOR (CURRENT) USE OF ORAL HYPOGLYC 10/30/2016 GRIFFIN FAYE [employer]ERAL HOME LOCATION MANAGER Ot Z79.899 OTHER SNF (CURRENT) DRUG THERAPY 11/01/2016 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 Ot E11 .9 TYPE 2 DIABETES MELLITUS WITHOUT COMPLIC 11/01/2016 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 Ot N32 .9 BLADDER DISORDER, UNSPECIFIED 11/01/2016 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 Ot R11 .2 NAUSEA WITH VOMITING, UNSPECIFIED 11/01/2016 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 Ot R19 .7 DIARRHEA, UNSPECIFIED 11/01/2016 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 Ot Z79.82 GANG HEMSTITCHING MACHINE OPERATOR (CURRENT) USE OF ASPIRIN 11/01/2016 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 Ot Z79.84 GANG HEMSTITCHING MACHINE OPERATOR (CURRENT) USE OF ORAL HYPOGLYC 11/01/2016 KEELOPEZ TORRES Allison GUARDADO Ot Z79.899 OTHER SNF (CURRENT) DRUG THERAPY 11/07/2016 JACQUELIN RAHMAN [facility] FACP CCDS Ot E78.4 OTHER HYPERLIPIDEMIA 11/07/2016 JACQUELIN RAHMAN [facility], ALI FACP CCDS Ot I25.10 ATHSCL HEART DISEASE OF [place] CORONARY 11/07/2016 JACQUELIN RAHMAN [facility], ALI FACP CCDS Ot 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 11/07/2016 JACQUELIN RAHMAN [facility], ALI FACP CCDS Ot K21.9 GASTRO-ESOPHAGEAL REFLUX DISEASE WITHOUT 11/07/2016 JACQUELIN RAHMAN [facility], ALI FACP CCDS Ot R53.83 OTHER FATIGUE 11/07/2016 Ot R11.10 VOM ITING, UNSPECIFIED 11/07/2016 Ot R19.7 DIAR ROGER, UNSPECIFIED 11/07/2016 NATHAN URIAS Ot E11.9 TYPE 2 DIABETES MELLITUS WITHOUT COMPLIC 11/07/2016 TRESSA URIASEN L Ot 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 11/07/2016 TRESSA URIASEN L Ot L50.9 URTICARIA, UNSPECIFIED 11/07/2016 NATHAN URIAS Ot Z79.82 GANG HEMSTITCHING MACHINE OPERATOR (CURRENT) USE OF ASPIRIN 11/07/2016 NATHAN URIAS Ot Z79.899 OTHER GANG HEMSTITCHING MACHINE OPERATOR (CURRENT) DRUG THERAPY 11/15/2016 NATHAN URIAS Ot 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 11/15/2016 NATHAN URIAS Ot L50.9 URTICARIA, UNSPECIFIED 11/15/2016 NATHAN URIAS Ot E11.9 TYPE 2 DIABETES MELLITUS WITHOUT COMPLIC 11/15/2016 NATHAN URIAS Ot 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 11/15/2016 TRESSA URIASEN [place] Ot L50.9 URTICARIA, UNSPECIFIED 11/15/2016 NATHAN URIAS Ot Z79.82 GANG HEMSTITCHING MACHINE OPERATOR (CURRENT) USE OF ASPIRIN 11/15/2016 NATHAN URIAS L Ot Z79.899 OTHER SNF (CURRENT) DRUG THERAPY 11/15/2016 MUNIR ROCHE MD Ot 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 0 NONTOXIC DIFFUSE GOITER 11/30/2016 ALLISON GLORIA MD R Ot R11. 10 VOMITING, UNSPECIFIED 11/30/2016 FAIZAN RAHMAN, ALLISON R Ot R19. 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 0 NONTOXIC DIFFUSE GOITER 01/26/2017 JOYCE MONAE R VEHICLE RETURN ASSOCIATE Ot R11.10 VOMITING, UNSPECIFIED 01/26/2017 JOYCE MONAE VEHICLE RETURN ASSOCIATE Ot R19.7 DIARRHEA, UNSPECIFIED 01/28/2017 FAIZAN RAHMAN, ALLISON R Ot R11. 10 VOMITING, UNSPECIFIED 01/28/2017 FAIZAN RAHMAN, ALLISON R Ot R19. 7 DIARRHEA, UNSPECIFIED 02/22/2017 LOPEZ KEE APRN Ot E11 .9 TYPE 2 DIABETES MELLITUS WITHOUT COMPLIC 02/22/2017 LOPEZ KEE APRN Ot K02 .9 DENTAL CARIES, UNSPECIFIED 02/22/2017 LOPEZ KEE APRN Ot K08 .9 DISORDER OF TEETH AND SUPPORTING STRUCTU 02/22/2017 LOPEZ KEE APRN Ot Z79 .4 SNF (CURRENT) USE OF INSULIN 02/23/2017 LOPEZ KEE APRN Ot E11 .9 TYPE 2 DIABETES MELLITUS WITHOUT COMPLIC 02/23/2017 LOPEZ KEE APRN Ot K02 .9 DENTAL CARIES, UNSPECIFIED 02/23/2017 LOPEZ KEE APRN Ot K08 .9 DISORDER OF TEETH AND SUPPORTING STRUCTU 02/23/2017 LOPEZ KEE APRN Ot Z79 .4 SNF (CURRENT) USE OF INSULIN 03/01/2017 LOPEZ KEE APRN Ot E11 .9 TYPE 2 DIABETES MELLITUS WITHOUT COMPLIC 03/01/2017 LOPEZ KEE APRN Ot K02 .9 DENTAL CARIES, UNSPECIFIED 03/01/2017 LOPEZ KEE APRN Ot K08 .9 DISORDER OF TEETH AND SUPPORTING STRUCTU 03/01/2017 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 Ot Z79 .4 GANG HEMSTITCHING MACHINE OPERATOR (CURRENT) USE OF INSULIN 03/17/2017 Ot R11.10 VOM ITING, UNSPECIFIED 03/17/2017 Ot R19.7 DIAR ROGER, UNSPECIFIED 03/17/2017 JOYCE MONAE VEHICLE RETURN ASSOCIATE Ot R11.10 VOMITING, UNSPECIFIED 03/17/2017 JOYCE MONAE VEHICLE RETURN ASSOCIATE Ot R19.7 DIARRHEA, UNSPECIFIED 03/17/2017 LINDSEY RAHMAN, DIANE Alejo Ot K25.9 GASTRIC ULCER, UNSP ACUTE OR CHRONIC, 03/17/2017 LINDSEY RAHMAN, DIANE Alejo Ot Z01.818 ENCOUNTER FOR OTHER PREPROCEDURAL EXAMIN 03/17/2017 Ot 285.9 ANEM IA NOS 03/17/2017 Ot 618.6 VAGI NAL ENTEROCELE 03/17/2017 Ot 625.6 FEM STRESS INCONTINENCE 03/17/2017 Ot V72.63 PRE -PROCEDURAL LABORATORY EXAMINATION 03/17/2017 Ot V74.8 SCRE EN-BACTERIAL DIS NEC 03/17/2017 Ot 599.0 URIN TRACT INFECTION NOS 03/17/2017 NEEMA HENSLEY [employer] LOCATION MANAGER Ot 414.00 CORON ATHEROSCLER NOS TYPE VESSEL, NATIV 03/17/2017 NEEMA HENSLEY [employer]ER[employer] HOME LOCATION MANAGER Ot 786.09 RESPIRATORY ABNORM NEC 03/17/2017 KAYLEIGH RAHMAN, FELIBERTO Chow Ot 724.9 BACK DISORDER NOS 03/17/2017 ARAVIND RAHMAN, ALBERTO Ot V72.84 EXAM PRE-OPERATIVE NOS 03/17/2017 FAIZAN RAHMAN, ALLISON aPn Ot 611. 72 LUMP OR MASS IN BREAST 03/17/2017 ALLISON GLORIA MD Ot V76. 12 OTH SCREEN MAMMO-MALIGN NEOPLASM OF [place] 03/17/2017 ARAVIND RAHMAN, ALBERTO Ot V72.84 EXAM PRE-OPERATIVE NOS 03/17/2017 FAIZAN RAHMAN, ALLISON Pan Ot 593. 2 CYST OF KIDNEY, ACQUIRED 03/17/2017 ALLISON GLORIA MD Ot 722. 52 LUMB/LUMBOSAC DISC DEGEN 03/17/2017 JACQUELIN RAHMAN FACC, ALI FACP CCDS Ot E11.9 TYPE 2 DIABETES MELLITUS WITHOUT COMPLIC 03/17/2017 JACQUELIN RAHMAN FACC, ALI FACP CCDS Ot E78.5 HYPERLIPIDEMIA, UNSPECIFIED 03/17/2017 JACQUELIN RAHMAN FACC, ALI FACP CCDS Ot I25.10 ATHSCL HEART DISEASE OF [place] CORONARY 03/17/2017 JACQUELIN NORWOODC, ALI FACP CCDS Ot I65.29 OCCLUSION AND STENOSIS OF UNSPECIFIED CA 03/17/2017 JACQUELIN NORWOODC, ALI FACP CCDS Ot I73.9 PERIPHERAL VASCULAR DISEASE, UNSPECIFIED 03/17/2017 JACQUELIN NORWOODC, ALI FACP CCDS Ot I77.9 DISORDER OF ARTERIES AND ARTERIOLES, UNS 03/17/2017 JACQUELIN NORWOODC, ALI FACP CCDS Ot M54.9 DORSALGIA, UNSPECIFIED 03/17/2017 JACQUELIN RAHMAN FACC, ALI FACP CCDS Ot R06.09 OTHER FORMS OF DYSPNEA 03/17/2017 JACQUELIN NORWOODC, ALI FACP CCDS Ot R53.83 OTHER FATIGUE 03/17/2017 JACQUELIN RAHMAN FACC, ALI FACP CCDS Ot E11.9 TYPE 2 DIABETES MELLITUS WITHOUT COMPLIC 03/17/2017 JACQUELIN NORWOOD, ALI FACP CCDS Ot E78.5 HYPERLIPIDEMIA, UNSPECIFIED 03/17/2017 JACQUELIN NORWOOD, ALI FACP CCDS Ot I25.10 ATHSCL HEART DISEASE OF [place] CORONARY 03/17/2017 JACQUELIN NORWOOD, ALI FACP CCDS Ot I65.29 OCCLUSION AND STENOSIS OF UNSPECIFIED CA 03/17/2017 JACQUELIN NORWOOD, ALI FACP CCDS Ot I73.9 PERIPHERAL VASCULAR DISEASE, UNSPECIFIED 03/17/2017 JACQUELIN NORWOOD, ALI FACP CCDS Ot I77.9 DISORDER OF ARTERIES AND ARTERIOLES, UNS 03/17/2017 JACQUELIN NORWOOD, ALI FACP CCDS Ot M54.9 DORSALGIA, UNSPECIFIED 03/17/2017 JACQUELIN NORWOOD, ALI FACP CCDS Ot R06.09 OTHER FORMS OF DYSPNEA 03/17/2017 JACQUELIN RAHMAN FACC, ALI FACP CCDS Ot R53.83 OTHER FATIGUE 03/17/2017 FAIZAN RHAMAN, ALLISON R Ot R11. 10 VOMITING, UNSPECIFIED 03/17/2017 CHANDNI GLORIA MDYD R Ot R19. 7 DIARRHEA, UNSPECIFIED 03/17/2017 FAIZAN RAHMAN ALLISON R Ot D50. 0 IRON DEFICIENCY ANEMIA SECONDARY TO BLOO 03/17/2017 ALBERTO NAZARIO MD Ot K64.2 THIRD DEGREE HEMORRHOIDS 03/17/2017 ALBERTO NAZARIO MD Ot Z01.81 2 ENCOUNTER FOR PREPROCEDURAL LABORATORY E 03/17/2017 ALBERTO NAZARIO MD, Ot Z11.2 ENCOUNTER FOR SCREENING FOR OTHER BACTER 03/17/2017 Ot R11.10 VOM ITING, UNSPECIFIED 03/17/2017 Ot R19.7 DIAR ROGER, UNSPECIFIED 03/17/2017 JACQUELIN RAHMAN FAC, ALI FACP CCDS Ot E78.4 OTHER HYPERLIPIDEMIA 03/17/2017 JACQUELIN RAHMAN FACC, ALI FACP CCDS Ot I25.10 ATHSCL HEART DISEASE OF [place] CORONARY 03/17/2017 JACQUELIN RAHMAN FACC, ALI FACP CCDS Ot 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 03/17/2017 JACQUELIN RAHMAN FACC, ALI FACP CCDS Ot K21.9 GASTRO-ESOPHAGEAL REFLUX DISEASE WITHOUT 03/17/2017 JACQUELIN RAHMAN FAC, ALI FACP CCDS Ot R53.83 OTHER FATIGUE 03/17/2017 LINDSEY RAHMAN, DIANE Alejo Ot R10.13 EPIGASTRIC PAIN 03/17/2017 LINDSEY RAHMAN, DIANE Alejo Ot Z01.818 ENCOUNTER FOR OTHER PREPROCEDURAL EXAMIN 03/17/2017 FAIZAN RAHMAN, ALLISON R Ot E04. 0 NONTOXIC DIFFUSE GOITER 03/17/2017 ALLISON GLORIA MD R Ot E04. 0 NONTOXIC DIFFUSE GOITER 03/20/2017 Ot R11.10 VOM ITING, UNSPECIFIED 03/20/2017 Ot R19.7 DIAR ROGER, UNSPECIFIED 03/20/2017 JOYCE MONAE VEHICLE RETURN ASSOCIATE Ot R11.10 VOMITING, UNSPECIFIED 03/20/2017 JOYCE MONAE VEHICLE RETURN ASSOCIATE Ot R19.7 DIARRHEA, UNSPECIFIED 03/20/2017 DIANE PORTILLO MD Ot E11.9 TYPE 2 DIABETES MELLITUS WITHOUT COMPLIC 03/20/2017 LINDSEY RAHMAN, DIANE Alejo Ot 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, SINGLE EPISOD 03/20/2017 DIANE PORTILLO MD Ot I1 0 ESSENTIAL (PRIMARY) HYPERTENSION 03/20/2017 DIANE PORTILLO MD, Ot I25.10 ATHSCL HEART DISEASE OF [place] CORONARY 03/20/2017 KRISTA PORTILLO MDVIER M Ot K20.9 ESOPHAGITIS, UNSPECIFIED 03/20/2017 DIANE PORTILLO MD Ot K25.9 GASTRIC ULCER, UNSP ACUTE OR CHRONIC, 03/22/2017 DIANE PORTILLO MD Ot E11.9 TYPE 2 DIABETES MELLITUS WITHOUT COMPLIC 03/22/2017 DIANE PORTILLO MD Ot 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, SINGLE EPISOD 03/22/2017 DIANE PORTILLO MD Ot I1 0 ESSENTIAL (PRIMARY) HYPERTENSION 03/22/2017 DIANE PORTILLO MD Ot I25.10 ATHSCL HEART DISEASE OF [place] CORONARY 03/22/2017 DIANE PORTILLO MD Ot K20.9 ESOPHAGITIS, UNSPECIFIED 03/22/2017 DIANE PORTILLO MD Ot K25.9 GASTRIC ULCER, UNSP ACUTE OR CHRONIC, 03/26/2017 DIANE PORTILLO MD Ot E11.9 TYPE 2 DIABETES MELLITUS WITHOUT COMPLIC 03/26/2017 DIANE PORTILLO MD Ot 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, SINGLE EPISOD 03/26/2017 DIANE PORTILLO MD Ot I1 0 ESSENTIAL (PRIMARY) HYPERTENSION 03/26/2017 DIANE PORTILLO MD Ot I25.10 ATHSCL HEART DISEASE OF [place] CORONARY 03/26/2017 DIANE PORTILLO MD Ot K20.9 ESOPHAGITIS, UNSPECIFIED 03/26/2017 DIANE PORTILLO MD Ot K25.9 GASTRIC ULCER, UNSP ACUTE OR CHRONIC, 04/27/2017 Ot 599.0 URIN TRACT INFECTION NOS 04/27/2017 NEEMA HENSLEY [employer] LOCATION MANAGER Ot 414.00 CORON ATHEROSCLER NOS TYPE VESSEL, NATIV 04/27/2017 NEEMA HENSLEY [employer] LOCATION MANAGER Ot 786.09 RESPIRATORY ABNORM NEC 04/27/2017 KAYLEIGH RAHMAN, FELIBERTO P Ot 724.9 BACK DISORDER NOS 04/27/2017 ALBERTO NAZARIO MD Ot V72.84 EXAM PRE-OPERATIVE NOS 04/27/2017 FAIZAN RAHMAN, ALLISON R Ot 611. 72 LUMP OR MASS IN BREAST 04/27/2017 FAIZAN RAHMAN, ALLISON R Ot V76. 12 OTH SCREEN MAMMO-MALIGN NEOPLASM OF [place] 04/27/2017 ALBERTO NAZARIO MD Ot V72.84 EXAM PRE-OPERATIVE NOS 04/27/2017 FAIZAN RAHMAN, ALLISON R Ot 593. 2 CYST OF KIDNEY, ACQUIRED 04/27/2017 FAIZAN RAHMAN, ALLISON R Ot 722. 52 LUMB/LUMBOSAC DISC DEGEN 04/27/2017 JACQUELIN NORWOODC, ALI FACP CCDS Ot E11.9 TYPE 2 DIABETES MELLITUS WITHOUT COMPLIC 04/27/2017 JACQUELIN NORWOODC, ALI FACP CCDS Ot E78.5 HYPERLIPIDEMIA, UNSPECIFIED 04/27/2017 JACQUELIN NORWOODC, ALI FACP CCDS Ot I25.10 ATHSCL HEART DISEASE OF [place] CORONARY 04/27/2017 JACQUELIN RAHMAN FACC, ALI FACP CCDS Ot I65.29 OCCLUSION AND STENOSIS OF UNSPECIFIED CA 04/27/2017 JACQUELIN NORWOODC, ALI FACP CCDS Ot I73.9 PERIPHERAL VASCULAR DISEASE, UNSPECIFIED 04/27/2017 JACQUELIN NORWOODC, ALI FACP CCDS Ot I77.9 DISORDER OF ARTERIES AND ARTERIOLES, UNS 04/27/2017 JACQUELIN NORWOODC, ALI FACP CCDS Ot M54.9 DORSALGIA, UNSPECIFIED 04/27/2017 JACQUELIN NORWOODC, ALI FACP CCDS Ot R06.09 OTHER FORMS OF DYSPNEA 04/27/2017 JACQUELIN RAHMAN FACC, ALI FACP CCDS Ot R53.83 OTHER FATIGUE 04/27/2017 JACQUELIN RAHMAN FACC, ALI FACP CCDS Ot E11.9 TYPE 2 DIABETES MELLITUS WITHOUT COMPLIC 04/27/2017 JACQUELIN NORWOODC, ALI FACP CCDS Ot E78.5 HYPERLIPIDEMIA, UNSPECIFIED 04/27/2017 JACQUELIN NORWOODC, ALI FACP CCDS Ot I25.10 ATHSCL HEART DISEASE OF [place] CORONARY 04/27/2017 JACQUELIN NORWOODC, ALI FACP CCDS Ot I65.29 OCCLUSION AND STENOSIS OF UNSPECIFIED CA 04/27/2017 JACQUELIN RAHMAN FACC, ALI FACP CCDS Ot I73.9 PERIPHERAL VASCULAR DISEASE, UNSPECIFIED 04/27/2017 JACQUELIN NORWOODC, ALI FACP CCDS Ot I77.9 DISORDER OF ARTERIES AND ARTERIOLES, UNS 04/27/2017 JACQUELIN NORWOODC, ALI FACP CCDS Ot M54.9 DORSALGIA, UNSPECIFIED 04/27/2017 JACQUELIN NROWOODC, ALI FACP CCDS Ot R06.09 OTHER FORMS OF DYSPNEA 04/27/2017 JACQUELIN RAHMAN FACC, ALI FACP CCDS Ot R53.83 OTHER FATIGUE 04/27/2017 FAIZAN RAHMAN, ALLISON R Ot R11. 10 VOMITING, UNSPECIFIED 04/27/2017 FAIZAN RAHMAN, ALLISON R Ot R19. 7 DIARRHEA, UNSPECIFIED 04/27/2017 ALLISON GLORIA MD R Ot D50. 0 IRON DEFICIENCY ANEMIA SECONDARY TO BLOO 04/27/2017 ALBERTO NAZARIO MD Ot K64.2 THIRD DEGREE HEMORRHOIDS 04/27/2017 ABLERTO NAZARIO MD, Ot Z01.81 2 ENCOUNTER FOR PREPROCEDURAL LABORATORY E 04/27/2017 ALBERTO NAZARIO MD, Ot Z11.2 ENCOUNTER FOR SCREENING FOR OTHER BACTER 04/27/2017 Ot R11.10 VOM ITING, UNSPECIFIED 04/27/2017 Ot R19.7 DIAR ROGER, UNSPECIFIED 04/27/2017 JACQUELIN RAHMAN FACC, ALI FACP CCDS Ot E78.4 OTHER HYPERLIPIDEMIA 04/27/2017 JACQUELIN RAHMAN FACC, ALI FACP CCDS Ot I25.10 ATHSCL HEART DISEASE OF [place] CORONARY 04/27/2017 JACQUELIN RAHMAN FACC, ALI FACP CCDS Ot 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 04/27/2017 JACQUELIN RAHMAN FACC, ALI FACP CCDS Ot K21.9 GASTRO-ESOPHAGEAL REFLUX DISEASE WITHOUT 04/27/2017 JACQUELIN RAHMAN FACC, ALI FACP CCDS Ot R53.83 OTHER FATIGUE 04/27/2017 LINDSEY RAHMAN, DIANE Alejo Ot R10.13 EPIGASTRIC PAIN 04/27/2017 LINDSEY RAHMAN, DIANE Alejo Ot Z01.818 ENCOUNTER FOR OTHER PREPROCEDURAL EXAMIN 04/27/2017 ALLISON GLORIA MD R Ot E04. 0 NONTOXIC DIFFUSE GOITER 04/27/2017 ALLISON GLORIA MD Ot E04. 0 NONTOXIC DIFFUSE GOITER 04/28/2017 NOLVIA GUTIERREZ MD Ot E11.9 TYPE 2 DIABETES MELLITUS WITHOUT COMPLIC 04/28/2017 NOLVIA GUTIERREZ MD Ot E78.00 PURE HYPERCHOLESTEROLEMIA, UNSPECIFIED 04/28/2017 NOLVIA GUTIERREZ MD Ot I10 ESSENTIAL (PRIMARY) HYPERTENSION 04/28/2017 NOLVIA GUTIERREZ MD Ot I25.10 ATHSCL HEART DISEASE OF [place] CORONARY 04/28/2017 NOLVIA GUTIERREZ MD Ot I73.9 PERIPHERAL VASCULAR DISEASE, UNSPECIFIED 04/28/2017 NOLVIA GUTIERREZ MD Ot K21.9 GASTRO-ESOPHAGEAL REFLUX DISEASE WITHOUT 04/28/2017 NOLVIA GUTIERREZ MD Ot R07.9 CHEST PAIN, UNSPECIFIED 04/28/2017 NOLVIA GUTIERREZ MD Ot R10.84 GENERALIZED ABDOMINAL PAIN 04/28/2017 NOLVIA GUTIERREZ MD Ot R11.2 NAUSEA WITH VOMITING, UNSPECIFIED 04/28/2017 NOLVIA GUTIERREZ MD Ot Z79.4 SNF (CURRENT) USE OF INSULIN 04/28/2017 NOLVIA GUTIERREZ MD Ot Z95.820 PERIPHERAL VASCULAR ANGIOPLASTY STATUS W 04/28/2017 NOLVIA GUTIERREZ MD Ot E11.9 TYPE 2 DIABETES MELLITUS WITHOUT COMPLIC 04/28/2017 NOLVIA GUTIERREZ MD Ot E78.00 PURE HYPERCHOLESTEROLEMIA, UNSPECIFIED 04/28/2017 NOLVIA GUTIERREZ MD Ot I10 ESSENTIAL (PRIMARY) HYPERTENSION 04/28/2017 NOLVIA GUTIERREZ MD Ot I25.10 ATHSCL HEART DISEASE OF [place] CORONARY 04/28/2017 NOLVIA GUTIERREZ MD Ot I73.9 PERIPHERAL VASCULAR DISEASE, UNSPECIFIED 04/28/2017 NOLVIA GUTIERREZ MD Ot K21.9 GASTRO-ESOPHAGEAL REFLUX DISEASE WITHOUT 04/28/2017 NOLVIA GUTIERREZ MD Ot R07.9 CHEST PAIN, UNSPECIFIED 04/28/2017 NOLVIA GUTIERREZ MD Ot R10.84 GENERALIZED ABDOMINAL PAIN 04/28/2017 NOLVIA GUTIERREZ MD Ot R11.2 NAUSEA WITH VOMITING, UNSPECIFIED 04/28/2017 NOLVIA GUTIERREZ MD Ot Z79.4 GANG HEMSTITCHING MACHINE OPERATOR (CURRENT) USE OF INSULIN 04/28/2017 NOLVIA GUTIERREZ MD Ot Z95.820 PERIPHERAL VASCULAR ANGIOPLASTY STATUS W 04/29/2017 FAIZAN RAHMAN, ALLISON R Ot R11. 10 VOMITING, UNSPECIFIED 04/29/2017 CHANDNI GLORIA MDYD R Ot R19. 7 DIARRHEA, UNSPECIFIED 01/02/2018 Ot 599.0 URIN TRACT INFECTION NOS 01/02/2018 NEEMA HENSLEY [facility] LOCATION MANAGER Ot 414.00 CORON ATHEROSCLER NOS TYPE VESSEL, NATIV 01/02/2018 NEEMA HENSLEY [employer] LOCATION MANAGER Ot 786.09 RESPIRATORY ABNORM NEC 01/02/2018 KAYLEIGH RAHMAN, FELIBERTO Chow Ot 724.9 BACK DISORDER NOS 01/02/2018 ARAVIND RAHMAN, ALBERTO Ot V72.84 EXAM PRE-OPERATIVE NOS 01/02/2018 FAIZAN RAHMAN, ALLISON R Ot 611. 72 LUMP OR MASS IN BREAST 01/02/2018 ALLISON GLORIA MD R Ot V76. 12 OTH SCREEN MAMMO-MALIGN NEOPLASM OF [place] 01/02/2018 ALBERTO NAZARIO MD Ot V72.84 EXAM PRE-OPERATIVE NOS 01/02/2018 ALLISON GLORIA MD R Ot 593. 2 CYST OF KIDNEY, ACQUIRED 01/02/2018 ALLISON GLORIA MD R Ot 722. 52 LUMB/LUMBOSAC DISC DEGEN 01/02/2018 JACQUELIN RAHMAN FACC, ALI FACP CCDS Ot E11.9 TYPE 2 DIABETES MELLITUS WITHOUT COMPLIC 01/02/2018 JACQUELIN RAHMAN FACC, ALI FACP CCDS Ot E78.5 HYPERLIPIDEMIA, UNSPECIFIED 01/02/2018 JACQUELIN RAHMAN FACC, ALI FACP CCDS Ot I25.10 ATHSCL HEART DISEASE OF [place] CORONARY 01/02/2018 JACQUELIN RAHMAN FACC, ALI FACP [...] R53.83 OTHER FATIGUE 01/02/2018 JACQUELIN RAHMAN FACC, JAZMIN FACP CCDS Ot E11.9 TYPE 2 DIABETES MELLITUS WITHOUT COMPLIC 01/02/2018 JACQUELIN RAHMAN FACC, ALI FACP CCDS Ot E78.5 HYPERLIPIDEMIA, UNSPECIFIED 01/02/2018 JACQUELIN RAHMAN FACC, ALI FACP CCDS Ot I25.10 ATHSCL HEART DISEASE OF [place] CORONARY 01/02/2018 JACQUELIN RAHMAN FACC, ALI FACP CCDS Ot I65.29 OCCLUSION AND STENOSIS OF UNSPECIFIED CA 01/02/2018 JACQUELIN RAHMAN FACC, ALI FACP CCDS Ot I73.9 PERIPHERAL VASCULAR DISEASE, UNSPECIFIED 01/02/2018 AJCQUELIN RAHMAN FACC, ALI FACP CCDS Ot I77.9 DISORDER OF ARTERIES AND ARTERIOLES, UNS 01/02/2018 JACQUELIN RAHMAN FACC, ALI FACP CCDS Ot M54.9 DORSALGIA, UNSPECIFIED 01/02/2018 JACQUELIN RAHMAN FACC, ALI FACP CCDS Ot R06.09 OTHER FORMS OF DYSPNEA 01/02/2018 JACQUELIN RAHMAN FACC, ALI FACP CCDS Ot R53.83 OTHER FATIGUE 01/02/2018 FAIZAN RAHMAN, ALLISON R Ot R11. 10 VOMITING, UNSPECIFIED 01/02/2018 CHANDNI GLORIA MDYD R Ot R19. 7 DIARRHEA, UNSPECIFIED 01/02/2018 FAIZAN RAHMAN, ALLISON R Ot D50. 0 IRON DEFICIENCY ANEMIA SECONDARY TO BLOO 01/02/2018 ALBERTO NAZARIO MD Ot K64.2 THIRD DEGREE HEMORRHOIDS 01/02/2018 ALBERTO NAZARIO MD Ot Z01.81 2 ENCOUNTER FOR PREPROCEDURAL LABORATORY E 01/02/2018 ALBERTO NAZARIO MD Ot Z11.2 ENCOUNTER FOR SCREENING FOR OTHER BACTER 01/02/2018 Ot R11.10 VOM ITING, UNSPECIFIED 01/02/2018 Ot R19.7 DIAR ROGER, UNSPECIFIED 01/02/2018 JACQUELIN RAHMAN FACC, JAZMIN FACP CCDS Ot E78.4 OTHER HYPERLIPIDEMIA 01/02/2018 JACQUELIN RAHMAN FACC, ALI FACP CCDS Ot I25.10 ATHSCL HEART DISEASE OF [place] CORONARY 01/02/2018 JACQUELIN RAHMAN FACC, ALI FACP CCDS Ot 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 01/02/2018 JACQUELIN RAHMAN FACC, ALI FACP CCDS Ot K21.9 GASTRO-ESOPHAGEAL REFLUX DISEASE WITHOUT 01/02/2018 JACQUELIN RAHMAN FAC, ALI FACP CCDS Ot R53.83 OTHER FATIGUE 01/02/2018 LINDSEY RAHMAN, DIANE Alejo Ot R10.13 EPIGASTRIC PAIN 01/02/2018 LINDSEY RAHMAN, DIANE Alejo Ot Z01.818 ENCOUNTER FOR OTHER PREPROCEDURAL EXAMIN 01/02/2018 FAIZAN RAHMAN, ALLISON R Ot E04. 0 NONTOXIC DIFFUSE GOITER 01/02/2018 FAIZAN RAHMAN, ALLISON R Ot E04. 0 NONTOXIC DIFFUSE GOITER 01/02/2018 FAIZAN RAHMAN, ALLISON R Ot E01. 0 IODINE-DEFICIENCY RELATED DIFFUSE (ENDEM 01/03/2018 FAIZAN RAHMAN, LALISON R Ot E01. 0 IODINE-DEFICIENCY RELATED DIFFUSE (ENDEM 01/04/2018 FAIZAN RAHMAN, ALLISON R Ot E01. 0 IODINE-DEFICIENCY RELATED DIFFUSE (ENDEM 01/10/2018 FAIZAN RAHMAN, ALLISON R Ot E01. 0 IODINE-DEFICIENCY RELATED DIFFUSE (ENDEM 01/11/2018 FAIZAN RAHMAN, ALLISON R Ot E01. 0 IODINE-DEFICIENCY RELATED DIFFUSE (ENDEM 01/12/2018 FAIZAN RAHMAN, ALLISON R Ot E04. 2 NONTOXIC MULTINODULAR GOITER 01/12/2018 JACQUELIN RAHMAN [facility] FACP CCDS Ot E11.9 TYPE 2 DIABETES MELLITUS WITHOUT COMPLIC 01/12/2018 JACQUELIN RAHMAN [facility] FACP CCDS Ot E78.5 HYPERLIPIDEMIA, UNSPECIFIED 01/12/2018 JACQUELIN RAHMAN [facility] FACP CCDS Ot I25.10 ATHSCL HEART DISEASE OF [place] CORONARY 01/17/2018 Ot R11.10 VOM ITING, UNSPECIFIED 01/17/2018 Ot R19.7 DIAR ROGER, UNSPECIFIED 01/17/2018 JOYCE MONAE VEHICLE RETURN ASSOCIATE Ot R11.10 VOMITING, UNSPECIFIED 01/17/2018 JOYCE MONAE VEHICLE RETURN ASSOCIATE Ot R19.7 DIARRHEA, UNSPECIFIED 01/19/2018 JUDITH HINES MD Ot A41 .9 SEPSIS, UNSPECIFIED ORGANISM 01/19/2018 JUDITH HINES MD Ot E11.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 01/19/2018 JUDITH HINES MD Ot E78.00 PURE HYPERCHOLESTEROLEMIA, UNSPECIFIED 01/19/2018 JUDITH HINES MD Ot F32 .9 MAJOR DEPRESSIVE DISORDER, SINGLE EPISOD 01/19/2018 JUDITH HINES MD Ot I10 ESSENTIAL (PRIMARY) HYPERTENSION 01/19/2018 JUDITH HINES MD Ot I25.10 ATHSCL HEART DISEASE OF [place] CORONARY 01/19/2018 JUDITH HINES MD Ot K21 .9 GASTRO-ESOPHAGEAL REFLUX DISEASE WITHOUT 01/19/2018 JUDITH HINES MD Ot K85.90 ACUTE PANCREATITIS WITHOUT NECROSIS OR I 01/19/2018 JUDITH HINES MD Ot M19.91 PRIMARY OSTEOARTHRITIS, UNSPECIFIED SITE 01/19/2018 JUDITH HINES MD Ot N10 ACUTE PYELONEPHRITIS 01/19/2018 JUDITH HINES MD Ot Z79 .4 GANG HEMSTITCHING MACHINE OPERATOR (CURRENT) USE OF INSULIN 01/19/2018 JUDITH HINES MD Ot Z86.010 PERSONAL HISTORY OF COLONIC POLYPS 01/19/2018 JUDITH HINES MD Ot Z87.19 PERSONAL HISTORY OF OTHER DISEASES OF TH 01/19/2018 JUDITH HINES MD Ot Z87.891 PERSONAL HISTORY OF NICOTINE DEPENDENCE 01/19/2018 JUDITH HINES MD Ot Z95 .5 PRESENCE OF CORONARY ANGIOPLASTY IMPLANT 01/19/2018 JUDITH HINES MD Ot Z95.828 PRESENCE OF OTHER VASCULAR IMPLANTS AND 01/21/2018 ZARA DO, BRET K Ot E11.9 TYPE 2 DIABETES MELLITUS WITHOUT COMPLIC 01/21/2018 ZARA DO, BRET K Ot E78.00 PURE HYPERCHOLESTEROLEMIA, UNSPECIFIED 01/21/2018 ZARA DO, BRET K Ot 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, SINGLE EPISOD 01/21/2018 ZARA DO, BRET K Ot I10 ESSENTIAL (PRIMARY) HYPERTENSION 01/21/2018 ZARA DO, BRET K Ot I25.10 ATHSCL HEART DISEASE OF [place] CORONARY 01/21/2018 ZARA DO, BRET K Ot I73.9 PERIPHERAL VASCULAR DISEASE, UNSPECIFIED 01/21/2018 ZARA DO, BRET K Ot K21.9 GASTRO-ESOPHAGEAL REFLUX DISEASE WITHOUT 01/21/2018 ZARA DO, BRET K Ot K85.90 ACUTE PANCREATITIS WITHOUT NECROSIS OR I 01/21/2018 ZARA DO, BRET K Ot N39.0 URINARY TRACT INFECTION, SITE NOT SPECIF 01/21/2018 BRET ZUÑIGA DO Ot R11.0 NAUSEA 01/21/2018 BRET ZUÑIGA DO Ot R91.1 SOLITARY PULMONARY NODULE 01/21/2018 BRET ZUÑIGA DO Ot Z79.4 GANG HEMSTITCHING MACHINE OPERATOR (CURRENT) USE OF INSULIN 01/21/2018 BRET ZUÑIGA DO Ot Z80.8 FAMILY HISTORY OF MALIGNANT NEOPLASM OF 01/21/2018 BRET ZUÑIGA DO Ot Z82.49 FAMILY HX OF ISCHEM HEART DIS AND OTH DI 01/21/2018 BRET ZUÑIGA DO Ot Z86.010 PERSONAL HISTORY OF COLONIC POLYPS 01/21/2018 BRET ZUÑIGA DO Ot Z87.01 PERSONAL HISTORY OF PNEUMONIA (RECURRENT 01/21/2018 BRET ZUÑIGA DO Ot Z87.19 PERSONAL HISTORY OF OTHER DISEASES OF TH 01/21/2018 BRET ZUÑIGA DO Ot Z87.448 PERSONAL HISTORY OF OTHER DISEASES OF UR 01/21/2018 BRET ZUÑIGA DO Ot Z87.891 PERSONAL HISTORY OF NICOTINE DEPENDENCE 01/21/2018 BRET ZUÑIGA DO Ot Z88.1 ALLERGY STATUS TO OTHER ANTIBIOTIC AGENT 01/21/2018 BRET ZUÑIGA DO Ot Z88.2 ALLERGY STATUS TO SULFONAMIDES STATUS 01/21/2018 BRET ZUÑIGA DO Ot Z88.5 ALLERGY STATUS TO NARCOTIC AGENT STATUS 01/21/2018 BRET ZUÑIGA DO Ot Z88.8 ALLERGY STATUS TO OTH DRUG/MEDS/BIOL SUB 01/21/2018 BRET ZUÑIGA DO Ot Z90.49 ACQUIRED ABSENCE OF OTHER SPECIFIED PART 01/21/2018 BRET ZUÑIGA DO Ot Z90.710 ACQUIRED ABSENCE OF BOTH CERVIX AND UTER 01/21/2018 BRET ZUÑIGA DO Ot Z95.5 PRESENCE OF CORONARY ANGIOPLASTY IMPLANT 01/21/2018 BRET ZUÑIGA DO Ot Z95.820 PERIPHERAL VASCULAR ANGIOPLASTY STATUS W 01/23/2018 BRET ZUÑIGA DO Ot E11.9 TYPE 2 DIABETES MELLITUS WITHOUT COMPLIC 01/23/2018 BRET ZUÑIGA DO Ot E78.00 PURE HYPERCHOLESTEROLEMIA, UNSPECIFIED 01/23/2018 BRET ZUÑIGA DO Ot 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, SINGLE EPISOD 01/23/2018 BRET ZUÑIGA DO Ot I10 ESSENTIAL (PRIMARY) HYPERTENSION 01/23/2018 BRET ZUÑIGA DO Ot I25.10 ATHSCL HEART DISEASE OF [place] CORONARY 01/23/2018 BRET ZUÑIGA DO Ot I73.9 PERIPHERAL VASCULAR DISEASE, UNSPECIFIED 01/23/2018 BRET ZUÑIGA DO Ot K21.9 GASTRO-ESOPHAGEAL REFLUX DISEASE WITHOUT 01/23/2018 BRET ZUÑIGA DO Ot K85.90 ACUTE PANCREATITIS WITHOUT NECROSIS OR I 01/23/2018 BRET ZUÑIGA DO Ot N39.0 URINARY TRACT INFECTION, SITE NOT SPECIF 01/23/2018 BRET ZUÑIGA DO Ot R11.0 NAUSEA 01/23/2018 BRET ZUÑIGA DO Ot R91.1 SOLITARY PULMONARY NODULE 01/23/2018 BRET ZUÑIGA DO Ot Z79.4 SNF (CURRENT) USE OF INSULIN 01/23/2018 BRET ZUÑIGA DO Ot Z80.8 FAMILY HISTORY OF MALIGNANT NEOPLASM OF 01/23/2018 BRET ZUÑIGA DO Ot Z82.49 FAMILY HX OF ISCHEM HEART DIS AND OTH DI 01/23/2018 BRET ZUÑIGA DO Ot Z86.010 PERSONAL HISTORY OF COLONIC POLYPS 01/23/2018 BRET ZUÑIGA DO Ot Z87.01 PERSONAL HISTORY OF PNEUMONIA (RECURRENT 01/23/2018 BRET ZUÑIGA DO Ot Z87.19 PERSONAL HISTORY OF OTHER DISEASES OF TH 01/23/2018 BRET ZUÑIGA DO Ot Z87.448 PERSONAL HISTORY OF OTHER DISEASES OF UR 01/23/2018 BRET ZUÑIGA DO Ot Z87.891 PERSONAL HISTORY OF NICOTINE DEPENDENCE 01/23/2018 BRET ZUÑIGA DO Ot Z88.1 ALLERGY STATUS TO OTHER ANTIBIOTIC AGENT 01/23/2018 BRET ZUÑIGA DO Ot Z88.2 ALLERGY STATUS TO SULFONAMIDES STATUS 01/23/2018 BRET ZUÑIGA DO Ot Z88.5 ALLERGY STATUS TO NARCOTIC AGENT STATUS 01/23/2018 ZARA BRET KOHLER Ot Z88.8 ALLERGY STATUS TO OTH DRUG/MEDS/BIOL SUB 01/23/2018 BRET ZUÑIGA DO Ot Z90.49 ACQUIRED ABSENCE OF OTHER SPECIFIED PART 01/23/2018 BRET ZUÑIGA DO Ot Z90.710 ACQUIRED ABSENCE OF BOTH CERVIX AND UTER 01/23/2018 BRET ZUÑIGA DO Ot Z95.5 PRESENCE OF CORONARY ANGIOPLASTY IMPLANT 01/23/2018 BRET ZUÑIGA DO Ot Z95.820 PERIPHERAL VASCULAR ANGIOPLASTY STATUS W 01/29/2018 ALLISON GLORIA MD R Ot D63. 8 ANEMIA IN OTHER CHRONIC DISEASES CLASSIF 01/29/2018 ALLISON GLORIA MD R Ot R53. 83 OTHER FATIGUE 01/30/2018 ALLISON GLORIA MD R Ot D63. 8 ANEMIA IN OTHER CHRONIC DISEASES CLASSIF 01/30/2018 ALLISON GLORIA MD R Ot R53. 83 OTHER FATIGUE 01/31/2018 JACQUELIN RAHMAN FACC, ALI FACP CCDS Ot E11.9 TYPE 2 DIABETES MELLITUS WITHOUT COMPLIC 01/31/2018 JACQUELIN RAHMAN FACC, ALI FACP CCDS Ot E78.5 HYPERLIPIDEMIA, UNSPECIFIED 01/31/2018 JACQUELIN RAHMAN FACC, ALI FACP CCDS Ot I25.10 ATHSCL HEART DISEASE OF [place] CORONARY 02/16/2018 ALLISON GLORIA MD R Ot E01. 0 IODINE-DEFICIENCY RELATED DIFFUSE (ENDEM 02/16/2018 ALLISON GLORIA MD R Ot E04. 2 NONTOXIC MULTINODULAR GOITER 04/30/2018 NEEMA HENSLEY [employer] LOCATION MANAGER Ot 414.00 CORON ATHEROSCLER NOS TYPE VESSEL, NATIV 04/30/2018 NEEMA HENSLEY [employer] LOCATION MANAGER Ot 786.09 RESPIRATORY ABNORM NEC 04/30/2018 KAYLEIGH RAHMAN, FELIBERTO P Ot 724.9 BACK DISORDER NOS 04/30/2018 ALBERTO NAZARIO MD Ot V72.84 EXAM PRE-OPERATIVE NOS 04/30/2018 ALLISON GLORIA MD R Ot 611. 72 LUMP OR MASS IN BREAST 04/30/2018 ALLISON GLORIA MD R Ot V76. 12 OTH SCREEN MAMMO-MALIGN NEOPLASM OF [place] 04/30/2018 ALBERTO NAZARIO MD Ot V72.84 EXAM PRE-OPERATIVE NOS 04/30/2018 ALLISON GLORIA MD R Ot 593. 2 CYST OF KIDNEY, ACQUIRED 04/30/2018 ALLISON GLORIA MD R Ot 722. 52 LUMB/LUMBOSAC DISC DEGEN 04/30/2018 JACQUELIN RAHMAN FACC, ALI FACP CCDS Ot E11.9 TYPE 2 DIABETES MELLITUS WITHOUT COMPLIC 04/30/2018 JACQUELIN NORWOODC, ALI FACP CCDS Ot E78.5 HYPERLIPIDEMIA, UNSPECIFIED 04/30/2018 JACQUELIN RAHMAN FACC, ALI FACP CCDS Ot I25.10 ATHSCL HEART DISEASE OF [place] CORONARY 04/30/2018 JACQUELIN RAHMAN FACC, ALI FACP CCDS Ot I65.29 OCCLUSION AND STENOSIS OF UNSPECIFIED CA 04/30/2018 JACQUELIN RAHMAN FACC, ALI FACP CCDS Ot I73.9 PERIPHERAL VASCULAR DISEASE, UNSPECIFIED 04/30/2018 JACQUELIN RAHMAN FACC, ALI FACP CCDS Ot I77.9 DISORDER OF ARTERIES AND ARTERIOLES, UNS 04/30/2018 JACQUELIN NORWOODC, ALI FACP CCDS Ot M54.9 DORSALGIA, UNSPECIFIED 04/30/2018 JACQUELIN RAHMAN FACC, ALI FACP CCDS Ot R06.09 OTHER FORMS OF DYSPNEA 04/30/2018 JACQUELIN RAHMAN FACC, ALI FACP CCDS Ot R53.83 OTHER FATIGUE 04/30/2018 JACQUELIN RAHMAN FACC, ALI FACP CCDS Ot E11.9 TYPE 2 DIABETES MELLITUS WITHOUT COMPLIC 04/30/2018 JACQUELIN NORWOODC, ALI FACP CCDS Ot E78.5 HYPERLIPIDEMIA, UNSPECIFIED 04/30/2018 JACQUELIN NORWOODC, ALI FACP CCDS Ot I25.10 ATHSCL HEART DISEASE OF [place] CORONARY 04/30/2018 JACQUELIN NORWOODC, ALI FACP CCDS Ot I65.29 OCCLUSION AND STENOSIS OF UNSPECIFIED CA 04/30/2018 JACQUELIN RAHMAN FACC, ALI FACP CCDS Ot I73.9 PERIPHERAL VASCULAR DISEASE, UNSPECIFIED 04/30/2018 JACQUELIN NORWOOD, ALI FACP CCDS Ot I77.9 DISORDER OF ARTERIES AND ARTERIOLES, UNS 04/30/2018 JACQUELIN RAHMAN FACC, ALI FACP CCDS Ot M54.9 DORSALGIA, UNSPECIFIED 04/30/2018 JACQUELIN RAHMAN FACC, ALI FACP CCDS Ot R06.09 OTHER FORMS OF DYSPNEA 04/30/2018 JACQUELIN RAHMAN FACC, ALI FACP CCDS Ot R53.83 OTHER FATIGUE 04/30/2018 ALLISON GLORIA MD R Ot R11. 10 VOMITING, UNSPECIFIED 04/30/2018 SEGLIE MD, ALLISON R Ot R19. 7 DIARRHEA, UNSPECIFIED 04/30/2018 FAIZAN RAHMAN, ALLISON R Ot D50. 0 IRON DEFICIENCY ANEMIA SECONDARY TO BLOO 04/30/2018 ALBERTO NAZARIO MD Ot K64.2 THIRD DEGREE HEMORRHOIDS 04/30/2018 ALBERTO NAZARIO MD, Ot Z01.81 2 ENCOUNTER FOR PREPROCEDURAL LABORATORY E 04/30/2018 ALBERTO NAZARIO MD, Ot Z11.2 ENCOUNTER FOR SCREENING FOR OTHER BACTER 04/30/2018 Ot R11.10 VOM ITING, UNSPECIFIED 04/30/2018 Ot R19.7 DIAR ROGER, UNSPECIFIED 04/30/2018 JACQUELIN RAHMAN FACC, ALI FACP CCDS Ot E78.4 OTHER HYPERLIPIDEMIA 04/30/2018 JACQUELIN RAHMAN FACC, ALI FACP CCDS Ot I25.10 ATHSCL HEART DISEASE OF [place] CORONARY 04/30/2018 JACQUELIN RAHMAN FACC, ALI FACP CCDS Ot 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 04/30/2018 JACQUELIN RAHMAN FACC, ALI FACP CCDS Ot K21.9 GASTRO-ESOPHAGEAL REFLUX DISEASE WITHOUT 04/30/2018 JACQUELIN RAHMAN FACC, ALI FACP CCDS Ot R53.83 OTHER FATIGUE 04/30/2018 LINDSEY RAHMAN, DIANE Aleoj Ot R10.13 EPIGASTRIC PAIN 04/30/2018 LINDSEY RAHMAN, DIANE Alejo Ot Z01.818 ENCOUNTER FOR OTHER PREPROCEDURAL EXAMIN 04/30/2018 FAIZAN RAHMAN, ALLISON R Ot E04. 0 NONTOXIC DIFFUSE GOITER 04/30/2018 FAIZAN RAHMAN ALLISON R Ot E04. 0 NONTOXIC DIFFUSE GOITER 04/30/2018 JACQUELIN RAHMAN FACC, ALI FACP CCDS Ot E11.9 TYPE 2 DIABETES MELLITUS WITHOUT COMPLIC 04/30/2018 JACQUELIN RAHMAN FACC, ALI FACP CCDS Ot E78.5 HYPERLIPIDEMIA, UNSPECIFIED 04/30/2018 JACQUELIN RAHMAN FACC, ALI FACP CCDS Ot I25.10 ATHSCL HEART DISEASE OF [place] CORONARY 04/30/2018 ALLISON GLORIA MD R Ot E04. 2 NONTOXIC MULTINODULAR GOITER 04/30/2018 ALLISON GLORIA MD R Ot E01. 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 HEMSTITCHING MACHINE OPERATOR (CURRENT) USE OF INSULIN 05/01/2018 JACQUELIN RAHMAN FACC, ALI FACP CCDS Ot Z79.82 GANG HEMSTITCHING MACHINE OPERATOR (CURRENT) USE OF ASPIRIN 05/01/2018 JACQUELIN NORWOODC, ALI FACP CCDS Ot Z79.899 OTHER GANG HEMSTITCHING MACHINE OPERATOR (CURRENT) DRUG THERAPY 05/01/2018 JACQUELIN RAHMAN FACC, ALI FACP CCDS Ot Z87.891 PERSONAL HISTORY OF NICOTINE DEPENDENCE 05/04/2018 JACQUELIN NORWOODC, ALI FACP CCDS Ot E11.9 TYPE 2 DIABETES MELLITUS WITHOUT COMPLIC 05/04/2018 JACQUELIN NORWOODC, ALI FACP CCDS Ot E78.5 HYPERLIPIDEMIA, UNSPECIFIED 05/04/2018 JACQUELIN RAHMAN FACC, ALI FACP CCDS Ot I25.10 ATHSCL HEART DISEASE OF [place] CORONARY 05/04/2018 JACQUELIN RAHMAN FACC, ALI FACP CCDS Ot I70.0 ATHEROSCLEROSIS OF [place] 05/04/2018 JACQUELIN NORWOODC, ALI FACP CCDS Ot I70.213 ATHSCL [place] ARTERIES OF EXTRM W INTRMT 05/04/2018 JACQUELIN RAHMAN FACC, ALI FACP CCDS Ot Z79.4 SNF (CURRENT) USE OF INSULIN 05/04/2018 JACQUELIN NORWOODC, ALI FACP CCDS Ot Z79.82 SNF (CURRENT) USE OF ASPIRIN 05/04/2018 JACQUELIN NORWOODC, ALI FACP CCDS Ot Z79.899 OTHER SNF (CURRENT) DRUG THERAPY 05/04/2018 JACQUELIN NORWOODC, ALI FACP CCDS Ot Z87.891 PERSONAL HISTORY OF NICOTINE DEPENDENCE 11/20/2018 ALBERTO NAZARIO MD Ot V72.84 EXAM PRE-OPERATIVE NOS 11/20/2018 FAIZAN RAHMAN, ALLISON R Ot 611. 72 LUMP OR MASS IN BREAST 11/20/2018 ALLISON GLORIA MD R Ot V76. 12 OTH SCREEN MAMMO-MALIGN NEOPLASM OF [place] 11/20/2018 ALBERTO NAZARIO MD Ot V72.84 EXAM PRE-OPERATIVE NOS 11/20/2018 ALLISON GLORIA MD R Ot 593. 2 CYST OF KIDNEY, ACQUIRED 11/20/2018 ALLISON GLORIA MD R Ot 722. 52 LUMB/LUMBOSAC DISC DEGEN 11/20/2018 JACQUELIN RAHMAN FACC, JAZMIN FACP CCDS Ot E11.9 TYPE 2 DIABETES MELLITUS WITHOUT COMPLIC 11/20/2018 JACQUELIN RAHMAN FACC, ALI FACP CCDS Ot E78.5 HYPERLIPIDEMIA, UNSPECIFIED 11/20/2018 JACQUELIN RAHMAN FACC, ALI FACP CCDS Ot I25.10 ATHSCL HEART DISEASE OF [place] CORONARY 11/20/2018 JACQUELIN RAHMAN FACC, ALI FACP CCDS Ot I65.29 OCCLUSION AND STENOSIS OF UNSPECIFIED CA 11/20/2018 JACQUELIN RAHMAN FACC, ALI FACP CCDS Ot I73.9 PERIPHERAL VASCULAR DISEASE, UNSPECIFIED 11/20/2018 JACQUELIN RAHMAN FACC, ALI FACP CCDS Ot I77.9 DISORDER OF ARTERIES AND ARTERIOLES, UNS 11/20/2018 JACQUELIN RAHMAN FACC, ALI FACP CCDS Ot M54.9 DORSALGIA, UNSPECIFIED 11/20/2018 JACQUELIN RAHMAN FACC, ALI FACP CCDS Ot R06.09 OTHER FORMS OF DYSPNEA 11/20/2018 JACQUELIN RAHMAN FACC, ALI FACP CCDS Ot R53.83 OTHER FATIGUE 11/20/2018 JACQUELIN RAHMAN FACC, ALI FACP CCDS Ot E11.9 TYPE 2 DIABETES MELLITUS WITHOUT COMPLIC 11/20/2018 JACQUELIN RAHMAN FACC, ALI FACP CCDS Ot E78.5 HYPERLIPIDEMIA, UNSPECIFIED 11/20/2018 JACQUELIN RAHMAN FACC, ALI FACP CCDS Ot I25.10 ATHSCL HEART DISEASE OF [place] CORONARY 11/20/2018 JACQUELIN RAHMAN FACC, ALI FACP CCDS Ot I65.29 OCCLUSION AND STENOSIS OF UNSPECIFIED CA 11/20/2018 JACQUELIN RAHMAN FACC, ALI FACP CCDS Ot I73.9 PERIPHERAL VASCULAR DISEASE, UNSPECIFIED 11/20/2018 JACQUELIN RAHMAN FAC, ALI FACP CCDS Ot I77.9 DISORDER OF ARTERIES AND ARTERIOLES, UNS 11/20/2018 JACQUELIN RAHMAN FAC, ALI FACP CCDS Ot M54.9 DORSALGIA, UNSPECIFIED 11/20/2018 JACQUELIN RAHMAN FAC, ALI FACP CCDS Ot R06.09 OTHER FORMS OF DYSPNEA 11/20/2018 JACQUELIN RAHMAN FACC, ALI FACP CCDS Ot R53.83 OTHER FATIGUE 11/20/2018 ALLISON GLORIA MD R Ot R11. 10 VOMITING, UNSPECIFIED 11/20/2018 ALLISON GLORIA MD Ot R19. 7 DIARRHEA, UNSPECIFIED 11/20/2018 ALLISON GLORIA MD Ot D50. 0 IRON DEFICIENCY ANEMIA SECONDARY TO BLOO 11/20/2018 ALBERTO NAZARIO MD Ot K64.2 THIRD DEGREE HEMORRHOIDS 11/20/2018 ALBERTO NAZARIO MD Ot Z01.81 2 ENCOUNTER FOR PREPROCEDURAL LABORATORY E 11/20/2018 ALBERTO NAZARIO MD Ot Z11.2 ENCOUNTER FOR SCREENING FOR OTHER BACTER 11/20/2018 Ot R11.10 VOM ITING, UNSPECIFIED 11/20/2018 Ot R19.7 DIAR ROGER, UNSPECIFIED 11/20/2018 JACQUELIN RAHMAN [facility], ALI FACP CCDS Ot E78.4 OTHER HYPERLIPIDEMIA 11/20/2018 JACQUELIN RAHMAN [facility], ALI FACP CCDS Ot I25.10 ATHSCL HEART DISEASE OF [place] CORONARY 11/20/2018 JACQUELIN RAHMAN [facility], ALI FACP CCDS Ot 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 11/20/2018 JACQUELIN RAHMAN [facility], ALI FACP CCDS Ot K21.9 GASTRO-ESOPHAGEAL REFLUX DISEASE WITHOUT 11/20/2018 JACQUELIN NORWOOD, ALI FACP CCDS Ot R53.83 OTHER FATIGUE 11/20/2018 LINDSEY RAHMAN, DIANE Alejo Ot R10.13 EPIGASTRIC PAIN 11/20/2018 DIANE PORTILLO MD Ot Z01.818 ENCOUNTER FOR OTHER PREPROCEDURAL EXAMIN 11/20/2018 ALLISON GLORIA MD R Ot E04. 0 NONTOXIC DIFFUSE GOITER 11/20/2018 SEGLIE MD, ALLISON R Ot E04. 0 NONTOXIC DIFFUSE GOITER 11/20/2018 JACQUELIN RAHMAN FACC, ALI FACP CCDS Ot E11.9 TYPE 2 DIABETES MELLITUS WITHOUT COMPLIC 11/20/2018 JACQUELIN RAHMAN FACC, ALI FACP CCDS Ot E78.5 HYPERLIPIDEMIA, UNSPECIFIED 11/20/2018 JACQUELIN RAHMAN FACC, ALI FACP CCDS Ot I25.10 ATHSCL HEART DISEASE OF [place] CORONARY 11/20/2018 ALLISON GLORIA MD R Ot E04. 2 NONTOXIC MULTINODULAR GOITER 11/20/2018 FAIZAN RAHMAN, ALLISON R Ot E01. 0 IODINE-DEFICIENCY RELATED DIFFUSE (ENDEM 11/21/2018 MUNIR ROCHE MD Ot N39.0 URINARY TRACT INFECTION, SITE NOT SPECIF 11/21/2018 MUNIR ROCHE MD Ot N39.0 URINARY TRACT INFECTION, SITE NOT SPECIF 11/29/2018 JACQUELIN RAHMAN FACC, ALI FACP CCDS Ot E78.49 OTHER HYPERLIPIDEMIA 11/30/2018 JACQUELIN RAHMAN FACC, ALI FACP CCDS Ot E78.5 HYPERLIPIDEMIA, UNSPECIFIED 11/30/2018 JACQUELIN RAHMAN FACC, ALI FACP CCDS Ot I25.10 ATHSCL HEART DISEASE OF [place] CORONARY 11/30/2018 JACQUELIN RAHMAN FACC, ALI FACP CCDS Ot I73.9 PERIPHERAL VASCULAR DISEASE, UNSPECIFIED 11/30/2018 JACQUELIN RAHMAN FACC, ALI FACP CCDS Ot I77.89 OTHER SPECIFIED DISORDERS OF ARTERIES AN 11/30/2018 JACQUELIN RAHMAN FACC, ALI FACP CCDS Ot R06.02 SHORTNESS OF BREATH 11/30/2018 JACQUELIN RAHMAN FACC, ALI FACP CCDS Ot R53.83 OTHER FATIGUE 11/30/2018 JACQUELIN RAHMAN FACC, ALI FACP CCDS Ot E78.5 HYPERLIPIDEMIA, UNSPECIFIED 11/30/2018 JACQUELIN RAHMAN FACC, ALI FACP CCDS Ot I25.10 ATHSCL HEART DISEASE OF [place] CORONARY 11/30/2018 JACQUELIN RAHMAN FACC, ALI FACP CCDS Ot I73.9 PERIPHERAL VASCULAR DISEASE, UNSPECIFIED 11/30/2018 JACQUELIN RAHMAN FACC, ALI FACP CCDS Ot I77.89 OTHER SPECIFIED DISORDERS OF ARTERIES AN 11/30/2018 JACQUELIN RAHMAN FACC, ALI FACP CCDS Ot R06.02 SHORTNESS OF BREATH 11/30/2018 JACQUELIN RAHMAN [facility], ALI FACP CCDS Ot R53.83 OTHER FATIGUE 12/12/2018 KALEY RAHMAN, MUINR Samosn Ot N39.0 URINARY TRACT INFECTION, SITE NOT SPECIF 12/19/2018 JACQUELIN RAHMAN FAC, ALI FACP CCDS Ot E78.5 HYPERLIPIDEMIA, UNSPECIFIED 12/19/2018 JACQUELIN RAHMAN FAC, ALI FACP CCDS Ot I25.10 ATHSCL HEART DISEASE OF [place] CORONARY 12/19/2018 JACQUELIN RAHMAN [facility], ALI FACP CCDS Ot I73.9 PERIPHERAL VASCULAR DISEASE, UNSPECIFIED 12/19/2018 JACQUELIN RAHMAN FAC, ALI FACP CCDS Ot I77.89 OTHER SPECIFIED DISORDERS OF ARTERIES AN 12/19/2018 JACQUELIN RAHMAN [facility], ALI FACP CCDS Ot R06.02 SHORTNESS OF BREATH 12/19/2018 JACQUELIN RAHMAN [facility], ALI FACP CCDS Ot R53.83 OTHER FATIGUE 04/24/2019 FAIZAN RAHMAN, ALLISON R Ot E11. 9 TYPE 2 DIABETES MELLITUS WITHOUT COMPLIC 04/24/2019 FAIZAN RAHMAN ALLISON R Ot R07. 9 CHEST PAIN, UNSPECIFIED 04/24/2019 FAIZAN RAHMAN, ALLISON R Ot R91. 8 OTHER NONSPECIFIC ABNORMAL FINDING OF [place] 05/09/2019 CHELI CASE DO Ot K76. 0 FATTY (CHANGE OF) LIVER, NOT ELSEWHERE C 05/09/2019 CHELI CASE DO Ot R91. 8 OTHER NONSPECIFIC ABNORMAL FINDING OF [place] 05/09/2019 CHELI CASE DO Ot Z90. 49 ACQUIRED ABSENCE OF OTHER SPECIFIED PART 05/09/2019 CHELI CASE DO Ot Z98.890 OTHER SPECIFIED POSTPROCEDURAL STATES 05/10/2019 CHELI CASE DO Ot R06. 02 SHORTNESS OF BREATH 05/10/2019 CHELI CASE DO Ot R91. 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 02 SHORTNESS OF BREATH 05/15/2019 CHELI CASE DO Ot Z79. 4 GANG HEMSTITCHING MACHINE OPERATOR (CURRENT) USE OF INSULIN 05/15/2019 CHELI CASE DO Ot Z79. 82 GANG HEMSTITCHING MACHINE OPERATOR (CURRENT) USE OF ASPIRIN 05/15/2019 CHELI CASE DO Ot Z79.899 OTHER SNF (CURRENT) DRUG THERAPY 05/15/2019 CHELI CASE DO Ot Z87.891 PERSONAL HISTORY OF NICOTINE DEPENDENCE 05/15/2019 CHELI CASE DO Ot Z88. 1 ALLERGY STATUS TO OTHER ANTIBIOTIC AGENT 05/15/2019 CHELI CASE DO Ot Z88. 2 ALLERGY STATUS TO SULFONAMIDES STATUS 05/15/2019 CHELI CASE DO Ot Z88. 5 ALLERGY STATUS TO NARCOTIC AGENT STATUS 05/16/2019 CHELI CASE DO Ot R05 COUGH 05/16/2019 CHELI CASE DO Ot R06. 02 SHORTNESS OF BREATH 05/16/2019 CHELI CASE DO Ot R91. 8 OTHER NONSPECIFIC ABNORMAL FINDING OF [place] 05/20/2019 FAIZAN RAHMAN, ALLISON R Ot E11. 9 TYPE 2 DIABETES MELLITUS WITHOUT COMPLIC 05/20/2019 ALLISON GLORIA MD R Ot R07. 9 CHEST PAIN, UNSPECIFIED 05/20/2019 ALLISON GLORIA MD R Ot R91. 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 02 SHORTNESS OF BREATH 05/24/2019 CHELI CASE DO Ot Z79. 4 SNF (CURRENT) USE OF INSULIN 05/24/2019 CHELI CASE DO Ot Z79. 82 GANG HEMSTITCHING MACHINE OPERATOR (CURRENT) USE OF ASPIRIN 05/24/2019 CHELI CASE DO Ot Z79.899 OTHER SNF (CURRENT) DRUG THERAPY 05/24/2019 CHELI CASE DO Ot Z87.891 PERSONAL HISTORY OF NICOTINE DEPENDENCE 05/24/2019 CHELI CASE DO Ot Z88. 1 ALLERGY STATUS TO OTHER ANTIBIOTIC AGENT 05/24/2019 CHELI CASE DO Ot Z88. 2 ALLERGY STATUS TO SULFONAMIDES STATUS 05/24/2019 CHELI CASE DO Ot Z88. 5 ALLERGY STATUS TO NARCOTIC AGENT STATUS 05/28/2019 EVIE DO, CHELI M Ot R06. 02 SHORTNESS OF BREATH 05/28/2019 EVIE DO, CHELI M Ot R91. 8 OTHER NONSPECIFIC ABNORMAL FINDING OF [place] 06/19/2019 EVIE DO, CHELI Alejo Ot R05 COUGH 06/19/2019 EVIE DO, CHELI M Ot R06. 02 SHORTNESS OF BREATH 06/19/2019 EVIE DO, CHELI Alejo Ot R91. 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 4 GANG HEMSTITCHING MACHINE OPERATOR (CURRENT) USE OF INSULIN 06/24/2019 HALLE HENNING MD Ot Z79. 82 SNF (CURRENT) USE OF ASPIRIN 06/24/2019 HALLE HENNING MD, Ot Z79.899 OTHER SNF (CURRENT) DRUG THERAPY 06/24/2019 HALLE HENNING MD Ot Z87.891 PERSONAL HISTORY OF NICOTINE DEPENDENCE 06/24/2019 HALLE HENNING MD Ot Z88. 1 ALLERGY STATUS TO OTHER ANTIBIOTIC AGENT 06/24/2019 HALLE HENNING MD Ot Z88. 2 ALLERGY STATUS TO SULFONAMIDES STATUS 06/24/2019 HALLE HENNING MD Ot Z88. 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 4 SNF (CURRENT) USE OF INSULIN 06/28/2019 HALLE HENNING MD Ot Z79. 82 GANG HEMSTITCHING MACHINE OPERATOR (CURRENT) USE OF ASPIRIN 06/28/2019 HALLE HENNING MD Ot Z79.899 OTHER SNF (CURRENT) DRUG THERAPY 06/28/2019 HALLE HENNING MD Ot Z87.891 PERSONAL HISTORY OF NICOTINE DEPENDENCE 06/28/2019 HALLE HENNING MD Ot Z88. 1 ALLERGY STATUS TO OTHER ANTIBIOTIC AGENT 06/28/2019 HALLE HENNING MD Ot Z88. 2 ALLERGY STATUS TO SULFONAMIDES STATUS 06/28/2019 HALLE HENNING MD Ot Z88. 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 4 SNF (CURRENT) USE OF INSULIN 07/24/2019 HALLE HENNING MD, Ot Z79. 82 GANG HEMSTITCHING MACHINE OPERATOR (CURRENT) USE OF ASPIRIN 07/24/2019 HALLE HENNING MD, Ot Z79.899 OTHER SNF (CURRENT) DRUG THERAPY 07/24/2019 HALLE HENNING MD, Ot Z87.891 PERSONAL HISTORY OF NICOTINE DEPENDENCE 07/24/2019 HALLE HENNING MD, Ot Z88. 1 ALLERGY STATUS TO OTHER ANTIBIOTIC AGENT 07/24/2019 HALLE HENNING MD, Ot Z88. 2 ALLERGY STATUS TO SULFONAMIDES STATUS 07/24/2019 HALLE HENNING MD, Ot Z88. 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 08/25/2019 GRIFFIN FAYEP Ot D64.9 ANEMIA, UNSPECIFIED 08/25/2019 GRIFFIN FAYE [employer] HOME LOCATION MANAGER Ot E11.9 TYPE 2 DIABETES MELLITUS WITHOUT COMPLIC 08/25/2019 YUNIER GRIFFIN [employer] HOME LOCATION MANAGER Ot E78.00 PURE HYPERCHOLESTEROLEMIA, UNSPECIFIED 08/25/2019 YUNIER GRIFFIN [employer] HOME LOCATION MANAGER Ot 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, SINGLE EPISOD 08/25/2019 YUNIER GRIFFIN [employer]ER[employer] HOME LOCATION MANAGER Ot I10 ESSENTIAL (PRIMARY) HYPERTENSION 08/25/2019 GRIFFIN FAYE [employer]ERAL HOME LOCATION MANAGER Ot I25.10 ATHSCL HEART DISEASE OF [place] CORONARY 08/25/2019 GRIFFIN FAYEP Ot N39.0 URINARY TRACT INFECTION, SITE NOT SPECIF 08/25/2019 GRIFFIN FAYEP Ot R30.0 DYSURIA 08/25/2019 GRIFFIN FAYE [employer]ER[employer] HOME LOCATION MANAGER Ot Z79.4 GANG HEMSTITCHING MACHINE OPERATOR (CURRENT) USE OF INSULIN 08/25/2019 GRIFFIN FAYEP Ot Z82.49 FAMILY HX OF ISCHEM HEART DIS AND OTH DI 08/25/2019 GRIFFIN FAYE FUNERAL HOME LOCATION MANAGER Ot Z85.818 PRSNL HX OF MALIG NEOPLM OF SITE OF LIP, 08/25/2019 GRIFFIN FAYEP Ot Z85.850 PERSONAL HISTORY OF MALIGNANT NEOPLASM O 08/25/2019 YUNIER, GRIFFIN [employer]ER[employer] HOME LOCATION MANAGER Ot Z87.891 PERSONAL HISTORY OF NICOTINE DEPENDENCE 08/25/2019 YUNIERGRIFFIN Womack Ot Z88.1 ALLERGY STATUS TO OTHER ANTIBIOTIC AGENT 08/25/2019 GRIFFIN FAYE Ot Z88.2 ALLERGY STATUS TO SULFONAMIDES STATUS 08/25/2019 YUNIERGRIFFIN Womack Ot Z88.5 ALLERGY STATUS TO NARCOTIC AGENT STATUS 08/25/2019 YUNIERGRIFFIN Womack Ot Z88.8 ALLERGY STATUS TO OTH DRUG/MEDS/BIOL SUB 08/25/2019 YUNIERGRIFFIN Womack Ot Z90.49 ACQUIRED ABSENCE OF OTHER SPECIFIED PART 08/25/2019 YUNIERGRIFFIN Womack Ot Z90.710 ACQUIRED ABSENCE OF BOTH CERVIX AND UTER 08/25/2019 GRIFFIN FAYE Ot Z95.5 PRESENCE OF CORONARY ANGIOPLASTY IMPLANT 08/29/2019 HALLE HENNING MD, Ot 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 0 ENCOUNTER FOR ANTINEOPLASTIC RADIATION T 08/29/2019 HALLE HENNING MD Ot Z79. 4 SNF (CURRENT) USE OF INSULIN 08/29/2019 HALLE HENNING MD, Ot Z79. 82 SNF (CURRENT) USE OF ASPIRIN 08/29/2019 HALLE HENNING MD, Ot Z79.899 OTHER SNF (CURRENT) DRUG THERAPY 08/29/2019 HALLE HENNING MD, Ot Z87.891 PERSONAL HISTORY OF NICOTINE DEPENDENCE 08/29/2019 HALLE HENNING MD Ot Z88. 1 ALLERGY STATUS TO OTHER ANTIBIOTIC AGENT 08/29/2019 HALLE HENNING MD, Ot Z88. 2 ALLERGY STATUS TO SULFONAMIDES STATUS 08/29/2019 HALLE HENNING MD Ot Z88. 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 0 ENCOUNTER FOR ANTINEOPLASTIC RADIATION T 08/31/2019 HALLE HENNING MD, Ot Z79. 4 GANG HEMSTITCHING MACHINE OPERATOR (CURRENT) USE OF INSULIN 08/31/2019 HALLE HENNING MD Ot Z79. 82 SNF (CURRENT) USE OF ASPIRIN 08/31/2019 HLALE HENNING MD, Ot Z79.899 OTHER SNF (CURRENT) DRUG THERAPY 08/31/2019 HALLE HENNING MD, Ot Z87.891 PERSONAL HISTORY OF NICOTINE DEPENDENCE 08/31/2019 HALLE HENNING MD, Ot Z88. 1 ALLERGY STATUS TO OTHER ANTIBIOTIC AGENT 08/31/2019 HALLE HENNING MD, Ot Z88. 2 ALLERGY STATUS TO SULFONAMIDES STATUS 08/31/2019 HALLE HENNING MD, Ot Z88. 5 ALLERGY STATUS TO NARCOTIC AGENT STATUS 09/23/2019 HALLE HENNING MD Ot E11. 9 TYPE 2 DIABETES MELLITUS WITHOUT COMPLIC 09/23/2019 HALLE HENNING MD, Ot E78. 5 HYPERLIPIDEMIA, UNSPECIFIED 09/23/2019 HALLE HENNING MD, Ot I25. 10 ATHSCL HEART DISEASE OF [place] CORONARY 09/23/2019 HALLE HENNING MD, Ot K76. 0 FATTY (CHANGE OF) LIVER, NOT ELSEWHERE C 09/23/2019 HALLE HENNING MD Ot R91. 1 SOLITARY PULMONARY NODULE 09/23/2019 HALLE HENNING MD, Ot R91. 8 OTHER NONSPECIFIC ABNORMAL FINDING OF [place] 09/23/2019 HALLE HENNING MD Ot Z79. 4 GANG HEMSTITCHING MACHINE OPERATOR (CURRENT) USE OF INSULIN 09/23/2019 HALLE HENNING MD, Ot Z79. 82 GANG HEMSTITCHING MACHINE OPERATOR (CURRENT) USE OF ASPIRIN 09/23/2019 HALLE HENNING MD, Ot Z79.899 OTHER SNF (CURRENT) DRUG THERAPY 09/23/2019 HALLE HENNING MD, Ot Z87.891 PERSONAL HISTORY OF NICOTINE DEPENDENCE 09/23/2019 HALLE HENNING MD, Ot Z88. 1 ALLERGY STATUS TO OTHER ANTIBIOTIC AGENT 09/23/2019 HALLE HENNING MD, Ot Z88. 2 ALLERGY STATUS TO SULFONAMIDES STATUS 09/23/2019 HALLE HENNING MD, Ot Z88. 5 ALLERGY STATUS TO NARCOTIC AGENT STATUS 09/25/2019 HALLE HENNING MD, Ot C34. 90 MALIGNANT NEOPLASM OF UNSP PART OF UNSP 09/29/2019 HALLE HENNING MD, Ot C34. 90 MALIGNANT NEOPLASM OF UNSP PART OF UNSP 10/07/2019 ALBERTO NAZARIO MD Ot V72.84 EXAM PRE-OPERATIVE NOS 10/07/2019 Ot R11.10 VOM ITING, UNSPECIFIED 10/07/2019 Ot R19.7 DIAR ROGER, UNSPECIFIED 10/07/2019 LINDSEY RAHMAN, DIANE Alejo Ot R10.13 EPIGASTRIC PAIN 10/07/2019 LINDSEY RAHMAN, DIANE Alejo Ot Z01.818 ENCOUNTER FOR OTHER PREPROCEDURAL EXAMIN 10/07/2019 FAIZAN RAHMAN, ALLISON R Ot E04. 0 NONTOXIC DIFFUSE GOITER 10/07/2019 JOYCE MONAE R VEHICLE RETURN ASSOCIATE Ot R11.10 VOMITING, UNSPECIFIED 10/07/2019 JOYCE MONAE R VEHICLE RETURN ASSOCIATE Ot R19.7 DIARRHEA, UNSPECIFIED 10/07/2019 FAIZAN RAHMAN, ALLISON R Ot 611. 72 LUMP OR MASS IN BREAST 10/07/2019 FAIZAN RAHMAN, ALLISON R Ot V76. 12 OTH SCREEN MAMMO-MALIGN NEOPLASM OF [place] 10/07/2019 ARAVIND RAHMAN, ALBERTO Ot V72.84 EXAM PRE-OPERATIVE NOS 10/07/2019 FAIZAN RAHMAN, ALLISON R Ot 593. 2 CYST OF KIDNEY, ACQUIRED 10/07/2019 FAIZAN RAHMAN, ALLISON R Ot 722. 52 LUMB/LUMBOSAC DISC DEGEN 10/07/2019 JACQUELIN RAHMAN FACC, ALI FACP CCDS Ot E11.9 TYPE 2 DIABETES MELLITUS WITHOUT COMPLIC 10/07/2019 JACQUELIN RAHMAN FACC, ALI FACP CCDS Ot E78.5 HYPERLIPIDEMIA, UNSPECIFIED 10/07/2019 JACQUELIN RAHMAN FACC, ALI FACP CCDS Ot I25.10 ATHSCL HEART DISEASE OF [place] CORONARY 10/07/2019 JACQUELIN RAHMAN FACC, ALI FACP CCDS Ot I65.29 OCCLUSION AND STENOSIS OF UNSPECIFIED CA 10/07/2019 JACQUELIN RAHMAN FACC, ALI FACP CCDS Ot I73.9 PERIPHERAL VASCULAR DISEASE, UNSPECIFIED 10/07/2019 JACQUELIN RAHMAN FACC, ALI FACP CCDS Ot I77.9 DISORDER OF ARTERIES AND ARTERIOLES, UNS 10/07/2019 JACQUELIN RAHMAN FACC, ALI FACP CCDS Ot M54.9 DORSALGIA, UNSPECIFIED 10/07/2019 JACQUELIN RAHMAN FACC, ALI FACP CCDS Ot R06.09 OTHER FORMS OF DYSPNEA 10/07/2019 JACQUELIN RAHMAN FACC, ALI FACP CCDS Ot R53.83 OTHER FATIGUE 10/07/2019 JACQUELIN RAHMAN FACC, ALI FACP CCDS Ot E11.9 TYPE 2 DIABETES MELLITUS WITHOUT COMPLIC 10/07/2019 JACQUELIN RAHMAN FACC, ALI FACP CCDS Ot E78.5 HYPERLIPIDEMIA, UNSPECIFIED 10/07/2019 JACQUELIN RAHMAN FACC, ALI FACP CCDS Ot I25.10 ATHSCL HEART DISEASE OF [place] CORONARY 10/07/2019 JACQUELIN RAHMAN FACC, ALI FACP CCDS Ot I65.29 OCCLUSION AND STENOSIS OF UNSPECIFIED CA 10/07/2019 JACQUELIN RAHMAN FACC, ALI FACP CCDS Ot I73.9 PERIPHERAL VASCULAR DISEASE, UNSPECIFIED 10/07/2019 JACQUELIN RAHMAN FACC, ALI FACP CCDS Ot I77.9 DISORDER OF ARTERIES AND ARTERIOLES, UNS 10/07/2019 JACQUELIN RAHMAN FACC, ALI FACP CCDS Ot M54.9 DORSALGIA, UNSPECIFIED 10/07/2019 JACQUELIN RAHMAN FACC, ALI FACP CCDS Ot R06.09 OTHER FORMS OF DYSPNEA 10/07/2019 JACQUELIN RAHMAN FACC, ALI FACP CCDS Ot R53.83 OTHER FATIGUE 10/07/2019 FAIZAN RAHMAN, ALLISON R Ot R11. 10 VOMITING, UNSPECIFIED 10/07/2019 FAIZAN RAHMAN ALLISON R Ot R19. 7 DIARRHEA, UNSPECIFIED 10/07/2019 FAIZAN RAHMAN, ALLISON R Ot D50. 0 IRON DEFICIENCY ANEMIA SECONDARY TO BLOO 10/07/2019 ALBERTO NAZARIO MD Ot K64.2 THIRD DEGREE HEMORRHOIDS 10/07/2019 ALBERTO NAZARIO MD Ot Z01.81 2 ENCOUNTER FOR PREPROCEDURAL LABORATORY E 10/07/2019 ALBERTO NAZARIO MD Ot Z11.2 ENCOUNTER FOR SCREENING FOR OTHER BACTER 10/07/2019 Ot R11.10 VOM ITING, UNSPECIFIED 10/07/2019 Ot R19.7 DIAR ROGER, UNSPECIFIED 10/07/2019 JACQUELIN RAHMAN FACC, ALI FACP CCDS Ot E78.4 OTHER HYPERLIPIDEMIA 10/07/2019 JACQUELIN RAHMAN FACC, ALI FACP CCDS Ot I25.10 ATHSCL HEART DISEASE OF [place] CORONARY 10/07/2019 JACQUELIN RAHMAN FACC, ALI FACP CCDS Ot 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 10/07/2019 JACQUELIN MD FACC, ALI FACP CCDS Ot K21.9 GASTRO-ESOPHAGEAL REFLUX DISEASE WITHOUT 10/07/2019 JACQUELIN RAHMAN FACC, ALI FACP CCDS Ot R53.83 OTHER FATIGUE 10/07/2019 LINDSEY RAHMAN, DIANE Alejo Ot R10.13 EPIGASTRIC PAIN 10/07/2019 LINDSEY RAHMAN, DIANE Alejo Ot Z01.818 ENCOUNTER FOR OTHER PREPROCEDURAL EXAMIN 10/07/2019 ALLISON GLORIA MD R Ot E04. 0 NONTOXIC DIFFUSE GOITER 10/07/2019 ALLISON GLORIA MD R Ot E04. 0 NONTOXIC DIFFUSE GOITER 10/07/2019 JACQUELIN RAHMAN FACC, ALI FACP CCDS Ot E11.9 TYPE 2 DIABETES MELLITUS WITHOUT COMPLIC 10/07/2019 JACQUELIN RAHMAN FACC, ALI FACP CCDS Ot E78.5 HYPERLIPIDEMIA, UNSPECIFIED 10/07/2019 JACQUELIN RAHMAN FACC, ALI FACP CCDS Ot I25.10 ATHSCL HEART DISEASE OF [place] CORONARY 10/07/2019 FAIZAN RAHMAN ALLISON R Ot E04. 2 NONTOXIC MULTINODULAR GOITER 10/07/2019 FAIZAN RAHMAN ALLISON R Ot E01. 0 IODINE-DEFICIENCY RELATED DIFFUSE (ENDEM 10/07/2019 KALEY RAHMAN, MUNIR Samson Ot N39.0 URINARY TRACT INFECTION, SITE NOT SPECIF 10/07/2019 JACQUELIN RAHMAN FACC, ALI FACP CCDS Ot E78.5 HYPERLIPIDEMIA, UNSPECIFIED 10/07/2019 JACQUELIN RAHMAN FAC, ALI FACP CCDS Ot I25.10 ATHSCL HEART DISEASE OF [place] CORONARY 10/07/2019 JACQUELIN NORWOODC, ALI FACP CCDS Ot I73.9 PERIPHERAL VASCULAR DISEASE, UNSPECIFIED 10/07/2019 JACQUELIN NORWOOD, ALI FACP CCDS Ot I77.89 OTHER SPECIFIED DISORDERS OF ARTERIES AN 10/07/2019 JACQUELIN RAHMAN FACC, ALI FACP CCDS Ot R06.02 SHORTNESS OF BREATH 10/07/2019 JACQUELIN RAHMAN FACC, ALI FACP CCDS Ot R53.83 OTHER FATIGUE 10/07/2019 FAIZAN RAHMAN ALLISON R Ot E11. 9 TYPE 2 DIABETES MELLITUS WITHOUT COMPLIC 10/07/2019 ALLISON GLORIA MD R Ot R07. 9 CHEST PAIN, UNSPECIFIED 10/07/2019 SEGALLISON PACHECO MD Ot R91. 8 OTHER NONSPECIFIC ABNORMAL FINDING OF [place] 10/07/2019 EVIE DOCHELI M Ot R05 COUGH 10/07/2019 EVIE KOHLER, CHELI M Ot R06. 02 SHORTNESS OF BREATH 10/07/2019 EVIE DO, CHELI M Ot R91. 8 OTHER NONSPECIFIC ABNORMAL FINDING OF [place] 10/07/2019 EVIE DOCHELI M Ot R06. 02 SHORTNESS OF BREATH 10/07/2019 EVIE KOHLER, CHELI M Ot R91. 8 OTHER NONSPECIFIC ABNORMAL FINDING OF [place] 10/07/2019 EVIE DODANIELLACHELI M Ot K76. 0 FATTY (CHANGE OF) LIVER, NOT ELSEWHERE C 10/07/2019 EVIE KOHLER, CHELI M Ot R91. 8 OTHER NONSPECIFIC ABNORMAL FINDING OF [place] 10/07/2019 CHELI CASE DO M Ot Z90. 49 ACQUIRED ABSENCE OF OTHER SPECIFIED PART 10/07/2019 EVIE KOHLERCHELI Ot Z98.890 OTHER SPECIFIED POSTPROCEDURAL STATES 10/07/2019 HALLE HENNING MD Ot E11. 9 TYPE 2 DIABETES MELLITUS WITHOUT COMPLIC 10/07/2019 HALLE HENNING MD, Ot E78. 5 HYPERLIPIDEMIA, UNSPECIFIED 10/07/2019 HALLE HENNING MD, Ot I25. 10 ATHSCL HEART DISEASE OF [place] CORONARY 10/07/2019 HALLE HENNING MD, Ot K76. 0 FATTY (CHANGE OF) LIVER, NOT ELSEWHERE C 10/07/2019 HALLE HENNING MD, Ot R91. 1 SOLITARY PULMONARY NODULE 10/07/2019 HALLE HENNING MD, Ot R91. 8 OTHER NONSPECIFIC ABNORMAL FINDING OF [place] 10/07/2019 HALLE HENNING MD, Ot Z79. 4 SNF (CURRENT) USE OF INSULIN 10/07/2019 HALLE HENNING MD, Ot Z79. 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 1 ALLERGY STATUS TO OTHER ANTIBIOTIC AGENT 10/07/2019 HALLE HENNING MD, Ot Z88. 2 ALLERGY STATUS TO SULFONAMIDES STATUS 10/07/2019 JUVENCIO RAHMAN, HALLE Ot Z88. 5 ALLERGY STATUS TO NARCOTIC AGENT STATUS 10/07/2019 JUVENCIO RAHMAN, HALLE Ot C34. 90 MALIGNANT NEOPLASM OF UNSP PART OF UNSP 10/12/2019 YUNIERGRIFFIN WomackP Ot E11.9 TYPE 2 DIABETES MELLITUS WITHOUT COMPLIC 10/12/2019 YUNIERGRIFFIN Womack [employer] HOME LOCATION MANAGER Ot E78.00 PURE HYPERCHOLESTEROLEMIA, UNSPECIFIED 10/12/2019 YUNIERGRIFFIN Womack FUNERAL HOME LOCATION MANAGER Ot 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, SINGLE EPISOD 10/12/2019 YUNIER, GRIFFIN FUNERAL HOME LOCATION MANAGER Ot I10 ESSENTIAL (PRIMARY) HYPERTENSION 10/12/2019 YUNIERGRIFFIN [employer]ack FUNERAL HOME LOCATION MANAGER Ot I25.10 ATHSCL HEART DISEASE OF [place] CORONARY 10/12/2019 GRIFFIN FAYEP Ot M25.551 PAIN IN RIGHT HIP 10/12/2019 YUNIER, GRIFFIN FUNERAL HOME LOCATION MANAGER Ot M25.552 PAIN IN LEFT HIP 10/12/2019 YUNIERGRIFFIN [employer]ack FUNERAL HOME LOCATION MANAGER Ot M54.5 LOW BACK PAIN 10/12/2019 GRIFFIN FAYEP Ot N39.0 URINARY TRACT INFECTION, SITE NOT SPECIF 10/12/2019 GRIFFIN FAYEP Ot W01.0XXA FALL SAME LEV FROM SLIP/TRIP W/O STRIKE 10/12/2019 GRIFFIN FAYEP Ot Z79.4 SNF (CURRENT) USE OF INSULIN 10/12/2019 GRIFFIN FAYE FUNERAL HOME LOCATION MANAGER Ot Z80.8 FAMILY HISTORY OF MALIGNANT NEOPLASM OF 10/12/2019 YUNIERGRIFFIN [employer]ack FUNERAL HOME LOCATION MANAGER Ot Z82.49 FAMILY HX OF ISCHEM HEART DIS AND OTH DI 10/12/2019 GRIFFIN FAYE FUNERAL HOME LOCATION MANAGER Ot Z85.118 PERSONAL HISTORY OF MALIGNANT NEOPLASM O 10/12/2019 GRIFFIN FAYE FUNERAL HOME LOCATION MANAGER Ot Z87.891 PERSONAL HISTORY OF NICOTINE DEPENDENCE 10/12/2019 GRIFFIN FAYE FUNERAL HOME LOCATION MANAGER Ot Z88.1 ALLERGY STATUS TO OTHER ANTIBIOTIC AGENT 10/12/2019 GRIFFIN FAYEP Ot Z88.2 ALLERGY STATUS TO SULFONAMIDES STATUS 10/12/2019 GRIFFIN FAYE FUNERAL HOME LOCATION MANAGER Ot Z88.5 ALLERGY STATUS TO NARCOTIC AGENT STATUS 10/12/2019 GRIFFIN FAYE FUNERAL HOME LOCATION MANAGER Ot Z88.8 ALLERGY STATUS TO OTH DRUG/MEDS/BIOL SUB 10/12/2019 GRIFFIN FAYE FUNERAL HOME LOCATION MANAGER Ot Z90.49 ACQUIRED ABSENCE OF OTHER SPECIFIED PART 10/12/2019 YUNIERGRIFFIN Womack SANDRA Ot Z90.710 ACQUIRED ABSENCE OF BOTH CERVIX AND UTER 10/12/2019 YUNIERGRIFFIN WomackP Ot Z95.5 PRESENCE OF CORONARY ANGIOPLASTY IMPLANT 10/25/2019 HALLE HENNING MD, Ot C34. 90 MALIGNANT NEOPLASM OF UNSP PART OF UNSP 10/25/2019 HALLE HENNING MD, Ot E11. 9 TYPE 2 DIABETES MELLITUS WITHOUT COMPLIC 10/25/2019 HALLE HENNING MD, Ot E78. 5 HYPERLIPIDEMIA, UNSPECIFIED 10/25/2019 HALLE HENNING MD, Ot I25. 10 ATHSCL HEART DISEASE OF [place] CORONARY 10/25/2019 HALLE HENNING MD, Ot K76. 0 FATTY (CHANGE OF) LIVER, NOT ELSEWHERE C 10/25/2019 HALLE HENNING MD, Ot R91. 1 SOLITARY PULMONARY NODULE 10/25/2019 HALLE EHNNING MD, Ot R91. 8 OTHER NONSPECIFIC ABNORMAL FINDING OF [place] 10/25/2019 HALLE HENNING MD, Ot Z79. 4 SNF (CURRENT) USE OF INSULIN 10/25/2019 HALLE HENNING MD, Ot Z79. 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 1 ALLERGY STATUS TO OTHER ANTIBIOTIC AGENT 10/25/2019 HALLE HENNING MD, Ot Z88. 2 ALLERGY STATUS TO SULFONAMIDES STATUS 10/25/2019 HALEL HENNING MD, Ot Z88. 5 ALLERGY STATUS TO NARCOTIC AGENT STATUS 11/05/2019 MELISSA RAHMAN, MALLORY Allen Ot R73.9 HYPERGLYCEMIA, UNSPECIFIED 11/07/2019 HALLE HENNING MD, Ot C34. 01 MALIGNANT NEOPLASM OF RIGHT MAIN BRONCHU 11/07/2019 HALLE HENNING MD, Ot G31. 9 DEGENERATIVE DISEASE OF NERVOUS SYSTEM, 11/07/2019 HALLE HENNING MD, Ot R11. 2 NAUSEA WITH VOMITING, UNSPECIFIED 11/07/2019 HALLE HENNING MD, Ot R29.898 OTH SYMPTOMS AND SIGNS INVOLVING THE MUS 11/11/2019 MALLORY TORRES MD Ot R73.9 HYPERGLYCEMIA, UNSPECIFIED 11/14/2019 HALLE HENNING MD, Ot E11. 9 TYPE 2 DIABETES MELLITUS WITHOUT COMPLIC 11/14/2019 HALLE HENNING MD, Ot E78. 5 HYPERLIPIDEMIA, UNSPECIFIED 11/14/2019 HALLE HENNING MD, Ot I25. 10 ATHSCL HEART DISEASE OF [place] CORONARY 11/14/2019 HALLE HENNING MD, Ot K76. 0 FATTY (CHANGE OF) LIVER, NOT ELSEWHERE C 11/14/2019 HALLE HENNING MD, Ot R91. 1 SOLITARY PULMONARY NODULE 11/14/2019 HALLE HENNING MD, Ot R91. 8 OTHER NONSPECIFIC ABNORMAL FINDING OF [place] 11/14/2019 HALLE HENNING MD, Ot Z79. 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 82 GANG HEMSTITCHING MACHINE OPERATOR (CURRENT) USE OF ASPIRIN 11/14/2019 HALLE HENNING MD, Ot Z79.899 OTHER GANG HEMSTITCHING MACHINE OPERATOR (CURRENT) DRUG THERAPY 11/14/2019 HALLE HENNING MD, Ot Z87.891 PERSONAL HISTORY OF NICOTINE DEPENDENCE 11/14/2019 HALLE HENNING MD, Ot Z88. 1 ALLERGY STATUS TO OTHER ANTIBIOTIC AGENT 11/14/2019 HALLE HENNING MD, Ot Z88. 2 ALLERGY STATUS TO SULFONAMIDES STATUS 11/14/2019 HALLE HENNING MD, Ot Z88. 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 9 DEGENERATIVE DISEASE OF NERVOUS SYSTEM, 12/06/2019 HALLE HENNING MD, Ot R11. 2 NAUSEA WITH VOMITING, UNSPECIFIED 12/06/2019 HALLE HENNING MD, Ot R29.898 OTH SYMPTOMS AND SIGNS INVOLVING THE MUS 12/15/2019 HALLE HENNING MD, Ot E11. 9 TYPE 2 DIABETES MELLITUS WITHOUT COMPLIC 12/15/2019 HALLE HENNING MD, Ot E78. 5 HYPERLIPIDEMIA, UNSPECIFIED 12/15/2019 HALLE HENNING MD, Ot I25. 10 ATHSCL HEART DISEASE OF [place] CORONARY 12/15/2019 HALLE HENNING MD Ot K76. 0 FATTY (CHANGE OF) LIVER, NOT ELSEWHERE C 12/15/2019 HALLE HENNING MD Ot R91. 1 SOLITARY PULMONARY NODULE 12/15/2019 HALLE HENNING MD Ot R91. 8 OTHER NONSPECIFIC ABNORMAL FINDING OF [place] 12/15/2019 HALLE HENNING MD Ot Z79. 4 GANG HEMSTITCHING MACHINE OPERATOR (CURRENT) USE OF INSULIN 12/15/2019 HALLE HENNING MD, Ot Z79. 82 GANG HEMSTITCHING MACHINE OPERATOR (CURRENT) USE OF ASPIRIN 12/15/2019 HALLE HENNING MD, Ot Z79.899 OTHER SNF (CURRENT) DRUG THERAPY 12/15/2019 HALLE HENNING MD, Ot Z87.891 PERSONAL HISTORY OF NICOTINE DEPENDENCE 12/15/2019 HALLE HENNING MD, Ot Z88. 1 ALLERGY STATUS TO OTHER ANTIBIOTIC AGENT 12/15/2019 HALLE HENNING MD, Ot Z88. 2 ALLERGY STATUS TO SULFONAMIDES STATUS 12/15/2019 HALLE HENNING MD, Ot Z88. 5 ALLERGY STATUS TO NARCOTIC AGENT STATUS 12/16/2019 HALLE HENNING MD Ot C34. 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 9 TYPE 2 DIABETES MELLITUS WITHOUT COMPLIC 12/16/2019 HALLE HENNING MD Ot E78. 5 HYPERLIPIDEMIA, UNSPECIFIED 12/16/2019 HALLE HENNING MD Ot I25. 10 ATHSCL HEART DISEASE OF [place] CORONARY 12/16/2019 HALLE HENNING MD Ot K76. 0 FATTY (CHANGE OF) LIVER, NOT ELSEWHERE C 12/16/2019 HALLE HENNING MD Ot R91. 1 SOLITARY PULMONARY NODULE 12/16/2019 HALLE HENNING MD Ot Z79. 4 SNF (CURRENT) USE OF INSULIN 12/16/2019 HALLE HENNING MD, Ot Z79. 82 SNF (CURRENT) USE OF ASPIRIN 12/16/2019 HALLE HENNING MD, Ot Z79.899 OTHER SNF (CURRENT) DRUG THERAPY 12/16/2019 HALLE HENNING MD, Ot Z87.891 PERSONAL HISTORY OF NICOTINE DEPENDENCE 12/16/2019 HALLE HENNING MD, Ot Z88. 1 ALLERGY STATUS TO OTHER ANTIBIOTIC AGENT 12/16/2019 HALLE HENNING MD Ot Z88. 2 ALLERGY STATUS TO SULFONAMIDES STATUS 12/16/2019 HALLE HENNING MD Ot Z88. 5 ALLERGY STATUS TO NARCOTIC AGENT STATUS 12/23/2019 DONALD REDDY MD, Ot C34. 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 9 TYPE 2 DIABETES MELLITUS WITHOUT COMPLIC 12/23/2019 DONALD REDDY MD, Ot E78. 00 PURE HYPERCHOLESTEROLEMIA, UNSPECIFIED 12/23/2019 DONALD REDDY MD, Ot F32. 9 MAJOR DEPRESSIVE DISORDER, SINGLE EPISOD 12/23/2019 DONALD REDDY MD Ot G89. 29 OTHER CHRONIC PAIN 12/23/2019 DONALD REDDY MD Ot I10 ESSENTIAL (PRIMARY) HYPERTENSION 12/23/2019 DONALD REDDY MD, Ot I25. 10 ATHSCL HEART DISEASE OF [place] CORONARY 12/23/2019 DONALD REDDY MD Ot M19. 90 UNSPECIFIED OSTEOARTHRITIS, UNSPECIFIED 12/23/2019 DONALD REDDY MD Ot M25.551 PAIN IN RIGHT HIP 12/23/2019 DONALD REDDY MD, Ot M25.552 PAIN IN LEFT HIP 12/23/2019 DONALD REDDY MD Ot M54. 9 DORSALGIA, UNSPECIFIED 12/23/2019 DONALD REDDY MD Ot N30. 00 ACUTE CYSTITIS WITHOUT HEMATURIA 12/23/2019 DONALD REDDY MD Ot W19.XXXA UNSPECIFIED FALL, INITIAL ENCOUNTER 12/23/2019 DONALD REDDY MD Ot Z79. 4 GANG HEMSTITCHING MACHINE OPERATOR (CURRENT) USE OF INSULIN 12/23/2019 DONALD REDDY MD Ot Z79.891 SNF (CURRENT) USE OF OPIATE ANALGE 12/23/2019 DONALD REDDY MD, Ot Z79.899 OTHER GANG HEMSTITCHING MACHINE OPERATOR (CURRENT) DRUG THERAPY 12/23/2019 DONALD REDDY MD Ot Z80. 8 FAMILY HISTORY OF MALIGNANT NEOPLASM OF 12/23/2019 DONALD REDDY MD Ot Z87.891 PERSONAL HISTORY OF NICOTINE DEPENDENCE 12/23/2019 DONALD REDDY MD, Ot Z88. 1 ALLERGY STATUS TO OTHER ANTIBIOTIC AGENT 12/23/2019 DONALD REDDY MD Ot Z88. 2 ALLERGY STATUS TO SULFONAMIDES STATUS 12/23/2019 DONALD REDDY MD, Ot Z88. 5 ALLERGY STATUS TO NARCOTIC AGENT STATUS 12/23/2019 DONALD REDDY MD, Ot Z88. 8 ALLERGY STATUS TO OTH DRUG/MEDS/BIOL SUB 12/23/2019 DONALD REDDY MD Ot Z90.710 ACQUIRED ABSENCE OF BOTH CERVIX AND UTER 12/23/2019 DONALD REDDY MD Ot Z90. 89 ACQUIRED ABSENCE OF OTHER ORGANS 12/23/2019 DONALD REDDY MD, Ot C34. 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 9 TYPE 2 DIABETES MELLITUS WITHOUT COMPLIC 12/23/2019 DONALD REDDY MD Ot E78. 00 PURE HYPERCHOLESTEROLEMIA, UNSPECIFIED 12/23/2019 DONALD REDDY MD Ot F32. 9 MAJOR DEPRESSIVE DISORDER, SINGLE EPISOD 12/23/2019 DONALD REDDY MD Ot G89. 29 OTHER CHRONIC PAIN 12/23/2019 DONALD REDDY MD Ot I10 ESSENTIAL (PRIMARY) HYPERTENSION 12/23/2019 DONALD REDDY MD Ot I25. 10 ATHSCL HEART DISEASE OF [place] CORONARY 12/23/2019 DONLAD REDDY MD Ot M19. 90 UNSPECIFIED OSTEOARTHRITIS, UNSPECIFIED 12/23/2019 DONALD REDDY MD Ot M25.551 PAIN IN RIGHT HIP 12/23/2019 DONALD REDDY MD Ot M25.552 PAIN IN LEFT HIP 12/23/2019 DONALD REDDY MD Ot M54. 9 DORSALGIA, UNSPECIFIED 12/23/2019 DONALD REDDY MD Ot N30. 00 ACUTE CYSTITIS WITHOUT HEMATURIA 12/23/2019 DONALD REDDY MD Ot W19.XXXA UNSPECIFIED FALL, INITIAL ENCOUNTER 12/23/2019 DONALD REDDY MD Ot Z79. 4 SNF (CURRENT) USE OF INSULIN 12/23/2019 DONALD REDDY MD Ot Z79.891 GANG HEMSTITCHING MACHINE OPERATOR (CURRENT) USE OF OPIATE ANALGE 12/23/2019 DONALD REDDY MD Ot Z79.899 OTHER GANG HEMSTITCHING MACHINE OPERATOR (CURRENT) DRUG THERAPY 12/23/2019 DONALD REDDY MD Ot Z80. 8 FAMILY HISTORY OF MALIGNANT NEOPLASM OF 12/23/2019 DONALD REDDY MD Ot Z87.891 PERSONAL HISTORY OF NICOTINE DEPENDENCE 12/23/2019 DONALD REDDY MD, Ot Z88. 1 ALLERGY STATUS TO OTHER ANTIBIOTIC AGENT 12/23/2019 DONALD REDDY MD Ot Z88. 2 ALLERGY STATUS TO SULFONAMIDES STATUS 12/23/2019 DONALD REDDY MD Ot Z88. 5 ALLERGY STATUS TO NARCOTIC AGENT STATUS 12/23/2019 DONALD REDDY MD Ot Z88. 8 ALLERGY STATUS TO OTH DRUG/MEDS/BIOL SUB 12/23/2019 DONALD REDDY MD Ot Z90.710 ACQUIRED ABSENCE OF BOTH CERVIX AND UTER 12/23/2019 DONALD REDDY MD Ot Z90. 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6 REPEATED FALLS 12/24/2019 RIAN KOHLER HELADIO Ot R53.1 WEAKNESS 12/24/2019 RIAN KOHLER HELADIO Ot Z79.4 SNF (CURRENT) USE OF INSULIN 12/24/2019 RIAN OKHLER HELADIO Ot Z87.89 1 PERSONAL HISTORY OF NICOTINE DEPENDENCE 12/24/2019 MODI DO, HELADIO Ot Z90.49 ACQUIRED ABSENCE OF OTHER SPECIFIED PART 12/24/2019 MODI DO, HELADIO Ot Z90.71 0 ACQUIRED ABSENCE OF BOTH CERVIX AND UTER 12/24/2019 MODI DO, HELADIO Ot Z95.5 PRESENCE OF CORONARY ANGIOPLASTY IMPLANT 12/25/2019 MODI DO, HELADIO Ot 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 12/25/2019 MODI DO, HELADIO Ot C77.1 SECONDARY AND UNSP MALIGNANT NEOPLASM OF 12/25/2019 MODI DO, HELADIO Ot E11.9 TYPE 2 DIABETES MELLITUS WITHOUT COMPLIC 12/25/2019 MODI DO, HELADIO Ot E78.00 PURE HYPERCHOLESTEROLEMIA, UNSPECIFIED 12/25/2019 MODI DO, HELADIO Ot 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, SINGLE EPISOD 12/25/2019 MODI DO, HELADIO Ot H54.3 UNQUALIFIED VISUAL LOSS, BOTH EYES 12/25/2019 RIAN KOHLER, HELADIO Ot I10 ESSENTIAL (PRIMARY) HYPERTENSION 12/25/2019 RIAN KOHLER, HELADIO Ot I25.10 ATHSCL HEART DISEASE OF [place] CORONARY 12/25/2019 MODI DO, HELADIO Ot N39.0 URINARY TRACT INFECTION, SITE NOT SPECIF 12/25/2019 RIAN KOHLER, HELADIO Ot R29.6 REPEATED FALLS 12/25/2019 RIAN KOHLER, HELADIO Ot R53.1 WEAKNESS 12/25/2019 RIAN KOHLER, HELADIO Ot Z79.4 SNF (CURRENT) USE OF INSULIN 12/25/2019 RIAN KOHLER HELADIO Ot Z87.89 1 PERSONAL HISTORY OF NICOTINE DEPENDENCE 12/25/2019 RIAN KOHLER HELADIO Ot Z90.49 ACQUIRED ABSENCE OF OTHER SPECIFIED PART 12/25/2019 MODI DO, HELADIO Ot Z90.71 0 ACQUIRED ABSENCE OF BOTH CERVIX AND UTER 12/25/2019 MODI DO, HELADIO Ot Z95.5 PRESENCE OF CORONARY ANGIOPLASTY IMPLANT 12/30/2019 MODI DO HELADIO Ot 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 12/30/2019 MODI DO HELADIO Ot C77.1 SECONDARY AND UNSP MALIGNANT NEOPLASM OF 12/30/2019 MODI DO, HELADIO Ot E11.9 TYPE 2 DIABETES MELLITUS WITHOUT COMPLIC 12/30/2019 MODI DO, HELADIO Ot E78.00 PURE HYPERCHOLESTEROLEMIA, UNSPECIFIED 12/30/2019 MODI DO, HELADIO Ot 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, SINGLE EPISOD 12/30/2019 MODI DO, HELADIO Ot H54.3 UNQUALIFIED VISUAL LOSS, BOTH EYES 12/30/2019 MODI DO, HELADIO Ot I10 ESSENTIAL (PRIMARY) HYPERTENSION 12/30/2019 MODI DO, HELADIO Ot I25.10 ATHSCL HEART DISEASE OF [place] CORONARY 12/30/2019 MODI DO, HELADIO Ot N39.0 URINARY TRACT INFECTION, SITE NOT SPECIF 12/30/2019 MODI DO, HELADIO Ot R29.6 REPEATED FALLS 12/30/2019 MODI DO, HELADIO Ot R53.1 WEAKNESS 12/30/2019 MODI DO, HELADIO Ot Z79.4 SNF (CURRENT) USE OF INSULIN 12/30/2019 RIAN KOHLER HELADIO Ot Z87.89 1 PERSONAL HISTORY OF NICOTINE DEPENDENCE 12/30/2019 MODI DO, HELADIO Ot Z90.49 ACQUIRED ABSENCE OF OTHER SPECIFIED PART 12/30/2019 MODI DO, HELADIO Ot Z90.71 0 ACQUIRED ABSENCE OF BOTH CERVIX AND UTER 12/30/2019 MODI DO, HELADIO Ot Z95.5 PRESENCE OF CORONARY ANGIOPLASTY IMPLANT 12/30/2019 RIAN KOHLER, HELADIO Ot B96.1 KLEBSIELLA PNEUMONIAE THE CAUSE OF DI 12/30/2019 MODI DO, HELADIO Ot 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 12/30/2019 MODI DO, HELADIO Ot C77.1 SECONDARY AND UNSP MALIGNANT NEOPLASM OF 12/30/2019 MODI DO HELADIO Ot E11.9 TYPE 2 DIABETES MELLITUS WITHOUT COMPLIC 12/30/2019 MODI DO, HELADIO Ot E78.00 PURE HYPERCHOLESTEROLEMIA, UNSPECIFIED 12/30/2019 MODI DO, HELADIO Ot 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, SINGLE EPISOD 12/30/2019 MODI DO, HELADIO Ot H54.3 UNQUALIFIED VISUAL LOSS, BOTH EYES 12/30/2019 MODI DO, HELADIO Ot I10 ESSENTIAL (PRIMARY) HYPERTENSION 12/30/2019 MODI DO, HELADIO Ot I25.10 ATHSCL HEART DISEASE OF [place] CORONARY 12/30/2019 MODI DO, HELADIO Ot N39.0 URINARY TRACT INFECTION, SITE NOT SPECIF 12/30/2019 MODIHELADIO AGUILLON DO Ot R29.6 REPEATED FALLS 12/30/2019 MODIHELADIO AGUILLON DO Ot R53.1 WEAKNESS 12/30/2019 HELADIO MODI DO Ot Z79.4 SNF (CURRENT) USE OF INSULIN 12/30/2019 HELADIO MODI DO Ot Z87.89 1 PERSONAL HISTORY OF NICOTINE DEPENDENCE 12/30/2019 HELADIO MODI DO Ot Z90.49 ACQUIRED ABSENCE OF OTHER SPECIFIED PART 12/30/2019 HELADIO MODI DO Ot Z90.71 0 ACQUIRED ABSENCE OF BOTH CERVIX AND UTER 12/30/2019 HELADIO MODI DO Ot Z95.5 PRESENCE OF CORONARY ANGIOPLASTY IMPLANT 02/12/2020 MARYANA RAHMAN, SUN Allen Ot Z01.8 9 ENCOUNTER FOR OTHER SPECIFIED SPECIAL EX 03/02/2020 SUN MIJARES MD Ot Z01.8 9 ENCOUNTER FOR OTHER SPECIFIED SPECIAL EX Procedures Code Description Performed By Per formed On 59.79 URIN INCONTIN REPAIR NEC 10/17/2011 70.24 VAGI NAL BIOPSY 10/17/2011 70.50 CYST OCEL/RECTOCEL REPAIR 10/17/2011 70.8 VAGIN AL VAULT OBLITERAT 10/17/2011 [id number] EX CISION OF HEMORRHOIDAL PLEXUS, OPEN AP 10/08/2015 Results Test Result Range Capillary blood glucose measurement by g lucometer (mass/volume) - 10/17/16 10:40 Capillary blood glucose measurement by glucometer (mas s/volume) 138 mg/dL 70-110 Complete blood count (CBC) with automate d white blood cell (WBC) differential - 10/27/16 11:25 Blood leukocytes automated count (number/volume) 8.1 10*3/uL 4.3-11.0 Blood erythrocytes automated count (number/volume) 4.24 10*6/uL 4.35-5.85 Venous blood hemoglobin measurement (mass/volume) 13.1 g/dL 11.5-16.0 Blood hematocrit (volume fraction) 40 % 35-52 Automated erythrocyte mean corpuscular volume 93 [ foz_us] 80-99 Automated erythrocyte mean corpuscular h emoglobin (mass per erythrocyte) 31 pg 25-34 Automated erythrocyte mean corpuscular h emoglobin concentration measurement (mass/volume) 33 g/dL 32-36 Automated erythrocyte distribution width ratio 13. 6 % 10.0- 14.5 Automated blood platelet count (count/volume) 277 10*3/uL [...] 10*3 1.0-4.0 Blood monocytes automated count (number/volume) 0. 4 10*3 0.0-1.0 Automated eosinophil count 0.3 10*3/uL 0 .0-0.3 Automated blood basophil count (count/volume) 0.0 10*3/uL 0.0-0.1 Comprehensive metabolic panel - 10/27/16 11:25 Serum or plasma sodium measurement (moles/volume) 138 mmol/L 135-145 Serum or plasma potassium measurement (moles/volume) 3.6 mmol/L 3.6-5.0 Serum or plasma chloride measurement (moles/volume) 103 mmol/L 98-107 Carbon dioxide 25 mmol/L 21-32 Serum or plasma anion gap determination (moles/volume) 10 mmol/L 5-14 Serum or plasma urea nitrogen measurement (mass/volume ) 15 mg/dL 7-18 Serum or plasma creatinine measurement (mass/volume) 0.95 mg/dL 0.60-1.30 Serum or plasma urea nitrogen/creatinine mass ratio 16 NRG Serum or plasma creatinine measurement w ith calculation of estimated glomerular filtration rate 56 NRG Serum or plasma glucose measurement (mass/volume) 255 mg/dL 70-105 Serum or plasma calcium measurement (mass/volume) 9.6 mg/dL 8.5-10.1 Serum or plasma total bilirubin measurement (mass/volu me) 0.3 mg/dL 0.1-1.0 Serum or plasma alkaline phosphatase guy surement (enzymatic activity/volume) 88 U/L 40-136 Serum or plasma aspartate aminotransfera se measurement (enzymatic activity/volume) 35 U/L 5-34 Serum or plasma alanine aminotransferase measurement (enzymatic activity/volume) 33 U/L 0-55 Serum or plasma protein measurement (mass/volume) 6.2 g/dL 6.4-8.2 Serum or plasma albumin measurement (mass/volume) 3.9 g/dL 3.2-4.5 Serum or plasma amylase measurement (enz ymatic activity/volume) - 10/27/16 11:25 Serum or plasma amylase measurement (enzymatic activit y/volume) 44 U/L 25-125 Lipase - 10/27/16 11:25 Lipase 82 U/L 8-78 Complete urinalysis with reflex to cultu re - 10/27/16 11:25 Urine color determination YELLOW NRG Urine clarity determination SLIGHTLY CLOUDY NRG Urine pH measurement by test strip 5 5-9 Specific gravity of urine by test strip 1.015 1.016-1.022 Urine protein assay by test strip, semi-quantitative 1+ NEGATIVE Urine glucose detection by automated test strip 4+ NEGATIVE Erythrocytes detection in urine sediment by light micr oscopy 1+ NEGATIVE Urine ketones detection by automated test strip NE GATIVE NEGATIVE Urine nitrite detection by test strip NEGATIVE NEGATIVE Urine total bilirubin detection by test strip NEGA TIVE NEGATIVE Urine urobilinogen measurement by automated test strip (mass/volume) NORMAL NORMAL Urine leukocyte esterase detection by dipstick 2+ NEGATIVE Automated urine sediment erythrocyte cou nt by microscopy (number/high power field) RARE NRG Automated urine sediment leukocyte count by microscopy (number/high power field) [HPF] NRG Bacteria detection in urine sediment by light microsco py NEGATIVE NRG Squamous epithelial cells detection in u rine sediment by light microscopy 2-5 NRG Crystals detection in urine sediment by light microsco py NONE NRG Casts detection in urine sediment by light microscopy NONE NRG Mucus detection in urine sediment by light microscopy NEGATIVE NRG Complete urinalysis with reflex to culture YES NRG Bacterial urine culture - 10/27/16 11:25 Bacterial urine culture NG NRG Clostridium difficile detection - 10:00 C DIFF MOLECULAR RESULT Positive for toxigen ic C diff by DNA amplification NRG CALL POSITIVES (F1 HELP) CALLED TO GRIFFIN/ED AT 1508, 10-28-2016/KD NRG C DIFFICILE AG + TOXIN A/B. - 10/28/16 1 0:00 RESULTS INDETERMINANT; MOLECULAR TEST TO FOLLOW NRG Stool bacteria identification by culture - 10/28/16 10:00 FREE TEXT EXTERNAL NO GROWTH OF NORMAL ENTERIC CHANDNI RA NRG QUANTITY OF GROWTH Abundant Growth NRG Stool bacteria identification by culture [id number] NRG NEGATIVE FOR 0157 NEGATIVE FOR E COLI 0157 NRG NEGATIVE FOR CAMPY NEGATIVE FOR CAMPYLOBACTER NRG NEGATIVE FOR SHIGELLA NEGATIVE FOR SHIGELLA NRG NEGATIVE FOR SALMONELLA NEGATIVE FOR SALMONELLA NRG Complete blood count (CBC) with automate d white blood cell (WBC) differential - 10/28/16 11:00 Blood leukocytes automated count (number/volume) 8.8 10*3/uL 4.3-11.0 Blood erythrocytes automated count (number/volume) 4.38 10*6/uL 4.35-5.85 Venous blood hemoglobin measurement (mass/volume) 13.5 g/dL 11.5-16.0 Blood hematocrit (volume fraction) 41 % 35-52 Automated erythrocyte mean corpuscular volume 93 [ foz_us] 80-99 Automated erythrocyte mean corpuscular h emoglobin (mass per erythrocyte) 31 pg 25-34 Automated erythrocyte mean corpuscular h emoglobin concentration measurement (mass/volume) 33 g/dL 32-36 Automated erythrocyte distribution width ratio 13. 5 % 10.0- 14.5 Automated blood platelet count (count/volume) 292 10*3/uL [...] 10*3 1.0-4.0 Blood monocytes automated count (number/volume) 0. 5 10*3 0.0-1.0 Automated eosinophil count 0.3 10*3/uL 0 .0-0.3 Automated blood basophil count (count/volume) 0.0 10*3/uL 0.0-0.1 Comprehensive metabolic panel - 10/28/16 11:00 Serum or plasma sodium measurement (moles/volume) 143 mmol/L 135-145 Serum or plasma potassium measurement (moles/volume) 3.9 mmol/L 3.6-5.0 Serum or plasma chloride measurement (moles/volume) 107 mmol/L 98-107 Carbon dioxide 22 mmol/L 21-32 Serum or plasma anion gap determination (moles/volume) 14 mmol/L 5-14 Serum or plasma urea nitrogen measurement (mass/volume ) 11 mg/dL 7-18 Serum or plasma creatinine measurement (mass/volume) 0.90 mg/dL 0.60-1.30 Serum or plasma urea nitrogen/creatinine mass ratio 12 NRG Serum or plasma creatinine measurement w ith calculation of estimated glomerular filtration rate 60 NRG Serum or plasma glucose measurement (mass/volume) 137 mg/dL 70-105 Serum or plasma calcium measurement (mass/volume) 9.8 mg/dL 8.5-10.1 Serum or plasma total bilirubin measurement (mass/volu me) 0.6 mg/dL 0.1-1.0 Serum or plasma alkaline phosphatase guy surement (enzymatic activity/volume) 98 U/L 40-136 Serum or plasma aspartate aminotransfera se measurement (enzymatic activity/volume) 36 U/L 5-34 Serum or plasma alanine aminotransferase measurement (enzymatic activity/volume) 32 U/L 0-55 Serum or plasma protein measurement (mass/volume) 6.6 g/dL 6.4-8.2 Serum or plasma albumin measurement (mass/volume) 4.1 g/dL 3.2-4.5 Lipase - 10/28/16 11:00 Lipase 31 U/L 8-78 Complete urinalysis with reflex to cultu re - 10/28/16 12:04 Urine color determination YELLOW NRG Urine clarity determination CLEAR NR G Urine pH measurement by test strip 6.5 5-9 Specific gravity of urine by test strip 1.010 1.016-1.022 Urine protein assay by test strip, semi-quantitative 1+ NEGATIVE Urine glucose detection by automated test strip 4+ NEGATIVE Erythrocytes detection in urine sediment by light micr oscopy 1+ NEGATIVE Urine ketones detection by automated test strip 1+ NEGATIVE Urine nitrite detection by test strip POSITIVE NEGATIVE Urine total bilirubin detection by test strip NEGA TIVE NEGATIVE Urine urobilinogen measurement by automated test strip (mass/volume) NORMAL NORMAL Urine leukocyte esterase detection by dipstick 2+ NEGATIVE Automated urine sediment erythrocyte cou nt by microscopy (number/high power field) [HPF] NRG Automated urine sediment leukocyte count by microscopy (number/high power field) [HPF] NRG Bacteria detection in urine sediment by light microsco py NEGATIVE NRG Squamous epithelial cells detection in u rine sediment by light microscopy RARE NRG Crystals detection in urine sediment by light microsco py NONE NRG Casts detection in urine sediment by light microscopy NONE NRG Mucus detection in urine sediment by light microscopy NEGATIVE NRG Complete urinalysis with reflex to culture YES NRG Bacterial urine culture - 10/28/16 12:04 Bacterial urine culture NG NRG Capillary blood glucose measurement by g lucometer (mass/volume) - 11/07/16 16:13 Capillary blood glucose measurement by glucometer (mas s/volume) 101 mg/dL 70-110 Methicillin resistant Staphylococcus aur eus (MRSA) screening culture - 11/16/16 06:14 Methicillin resistant Staphylococcus aureus (MRSA) scr eening culture NEG NRG Capillary blood glucose measurement by g lucometer (mass/volume) - 11/16/16 06:36 Capillary blood glucose measurement by glucometer (mas s/volume) 150 mg/dL 70-110 Capillary blood glucose measurement by g lucometer (mass/volume) - 11/16/16 08:16 Capillary blood glucose measurement by glucometer (mas s/volume) 119 mg/dL 70-110 Complete urinalysis with reflex to cultu re - 11/16/16 18:00 Urine color determination YELLOW NRG Urine clarity determination SLIGHTLY CLOUDY NRG Urine pH measurement by test strip 5 5-9 Specific gravity of urine by test strip 1.010 1.016-1.022 Urine protein assay by test strip, semi-quantitative 2+ NEGATIVE Urine glucose detection by automated test strip NE GATIVE NEGATIVE Erythrocytes detection in urine sediment by light micr oscopy 5+ NEGATIVE Urine ketones detection by automated test strip NE GATIVE NEGATIVE Urine nitrite detection by test strip NEGATIVE NEGATIVE Urine total bilirubin detection by test strip NEGA TIVE NEGATIVE Urine urobilinogen measurement by automated test strip (mass/volume) NORMAL NORMAL Urine leukocyte esterase detection by dipstick 2+ NEGATIVE Automated urine sediment erythrocyte cou nt by microscopy (number/high power field) [HPF] NRG Automated urine sediment leukocyte count by microscopy (number/high power field) [HPF] NRG Bacteria detection in urine sediment by light microsco py FEW NRG Squamous epithelial cells detection in u rine sediment by light microscopy 0-2 NRG Crystals detection in urine sediment by light microsco py PRESENT NRG Casts detection in urine sediment by light microscopy NONE NRG Mucus detection in urine sediment by light microscopy NEGATIVE NRG Complete urinalysis with reflex to culture YES NRG Amorphous sediment detection in urine sediment by ligh t microscopy MOD SUSSY URATES NRG Bacterial urine culture - 11/16/16 18:00 Bacterial urine culture NG NRG Complete blood count (CBC) with automate d white blood cell (WBC) differential - 11/16/16 18:14 Blood leukocytes automated count (number/volume) 13.1 10*3/uL 4.3-11.0 Blood erythrocytes automated count (number/volume) 4.69 10*6/uL 4.35-5.85 Venous blood hemoglobin measurement (mass/volume) 14.5 g/dL 11.5-16.0 Blood hematocrit (volume fraction) 44 % 35-52 Automated erythrocyte mean corpuscular volume 93 [ foz_us] 80-99 Automated erythrocyte mean corpuscular h emoglobin (mass per erythrocyte) 31 pg 25-34 Automated erythrocyte mean corpuscular h emoglobin concentration measurement (mass/volume) 33 g/dL 32-36 Automated erythrocyte distribution width ratio 12. 9 % 10.0- 14.5 Automated blood platelet count (count/volume) 298 10*3/uL [...] 10*3 1.0-4.0 Blood monocytes automated count (number/volume) 0. 8 10*3 0.0-1.0 Automated eosinophil count 0.2 10*3/uL 0 .0-0.3 Automated blood basophil count (count/volume) 0.0 10*3/uL 0.0-0.1 Comprehensive metabolic panel - 11/16/16 18:14 Serum or plasma sodium measurement (moles/volume) 137 mmol/L 135-145 Serum or plasma potassium measurement (moles/volume) 4.5 mmol/L 3.6-5.0 Serum or plasma chloride measurement (moles/volume) 100 mmol/L 98-107 Carbon dioxide 25 mmol/L 21-32 Serum or plasma anion gap determination (moles/volume) 12 mmol/L 5-14 Serum or plasma urea nitrogen measurement (mass/volume ) 15 mg/dL 7-18 Serum or plasma creatinine measurement (mass/volume) 1.21 mg/dL 0.60-1.30 Serum or plasma urea nitrogen/creatinine mass ratio 12 NRG Serum or plasma creatinine measurement w ith calculation of estimated glomerular filtration rate 43 NRG Serum or plasma glucose measurement (mass/volume) 135 mg/dL 70-105 Serum or plasma calcium measurement (mass/volume) 9.3 mg/dL 8.5-10.1 Serum or plasma total bilirubin measurement (mass/volu me) 0.5 mg/dL 0.1-1.0 Serum or plasma alkaline phosphatase guy surement (enzymatic activity/volume) 93 U/L 40-136 Serum or plasma aspartate aminotransfera se measurement (enzymatic activity/volume) 47 U/L 5-34 Serum or plasma alanine aminotransferase measurement (enzymatic activity/volume) 44 U/L 0-55 Serum or plasma protein measurement (mass/volume) 6.6 g/dL 6.4-8.2 Serum or plasma albumin measurement (mass/volume) 3.9 g/dL 3.2-4.5 Complete blood count (CBC) with automate d white blood cell (WBC) differential - 11/17/16 05:32 Blood leukocytes automated count (number/volume) 10.9 10*3/uL 4.3-11.0 Blood erythrocytes automated count (number/volume) 4.27 10*6/uL 4.35-5.85 Venous blood hemoglobin measurement (mass/volume) 13.1 g/dL 11.5-16.0 Blood hematocrit (volume fraction) 39 % 35-52 Automated erythrocyte mean corpuscular volume 92 [ foz_us] 80-99 Automated erythrocyte mean corpuscular h emoglobin (mass per erythrocyte) 31 pg 25-34 Automated erythrocyte mean corpuscular h emoglobin concentration measurement (mass/volume) 33 g/dL 32-36 Automated erythrocyte distribution width ratio 12. 6 % 10.0- 14.5 Automated blood platelet count (count/volume) 275 10*3/uL [...] 10*3 1.0-4.0 Blood monocytes automated count (number/volume) 0. 1 10*3 0.0-1.0 Automated eosinophil count 0.0 10*3/uL 0 .0-0.3 Automated blood basophil count (count/volume) 0.0 10*3/uL 0.0-0.1 Comprehensive metabolic panel - 11/17/16 05:32 Serum or plasma sodium measurement (moles/volume) 137 mmol/L 135-145 Serum or plasma potassium measurement (moles/volume) 4.3 mmol/L 3.6-5.0 Serum or plasma chloride measurement (moles/volume) 104 mmol/L 98-107 Carbon dioxide 22 mmol/L 21-32 Serum or plasma anion gap determination (moles/volume) 11 mmol/L 5-14 Serum or plasma urea nitrogen measurement (mass/volume ) 15 mg/dL 7-18 Serum or plasma creatinine measurement (mass/volume) 1.12 mg/dL 0.60-1.30 Serum or plasma urea nitrogen/creatinine mass ratio 13 NRG Serum or plasma creatinine measurement w ith calculation of estimated glomerular filtration rate 47 NRG Serum or plasma glucose measurement (mass/volume) 264 mg/dL 70-105 Serum or plasma calcium measurement (mass/volume) 8.9 mg/dL 8.5-10.1 Serum or plasma total bilirubin measurement (mass/volu me) 0.3 mg/dL 0.1-1.0 Serum or plasma alkaline phosphatase guy surement (enzymatic activity/volume) 86 U/L 40-136 Serum or plasma aspartate aminotransfera se measurement (enzymatic activity/volume) 28 U/L 5-34 Serum or plasma alanine aminotransferase measurement (enzymatic activity/volume) 38 U/L 0-55 Serum or plasma protein measurement (mass/volume) 5.8 g/dL 6.4-8.2 Serum or plasma albumin measurement (mass/volume) 3.4 g/dL 3.2-4.5 Capillary blood glucose measurement by g lucometer (mass/volume) - 11/17/16 11:12 Capillary blood glucose measurement by glucometer (mas s/volume) 241 mg/dL 70-110 Capillary blood glucose measurement by g lucometer (mass/volume) - 11/17/16 16:42 Capillary blood glucose measurement by glucometer (mas s/volume) 244 mg/dL 70-110 Capillary blood glucose measurement by g lucometer (mass/volume) - 11/17/16 21:30 Capillary blood glucose measurement by glucometer (mas s/volume) 220 mg/dL 70-110 Capillary blood glucose measurement by g lucometer (mass/volume) - 11/18/16 05:38 Capillary blood glucose measurement by glucometer (mas s/volume) 189 mg/dL 70-110 Capillary blood glucose measurement by g lucometer (mass/volume) - 11/18/16 09:57 Capillary blood glucose measurement by glucometer (mas s/volume) 156 mg/dL 70-110 THYROID STIMULATING HORMONE - 11/28/16 1 4:49 THYROID STIMULATING HORMONE 0.70 u[iU]/mL 0.35-4.94 Thyroxine (T4) measurement - 11/28/16 14 :49 T4 (thyroxine) 13.9 % 5.5-12.0 Complete blood count (CBC) with automate d white blood cell (WBC) differential - 02/22/17 21:10 Blood leukocytes automated count (number/volume) 10.6 10*3/uL 4.3-11.0 Blood erythrocytes automated count (number/volume) 4.55 10*6/uL 4.35-5.85 Venous blood hemoglobin measurement (mass/volume) 13.3 g/dL 11.5-16.0 Blood hematocrit (volume fraction) 40 % 35-52 Automated erythrocyte mean corpuscular volume 89 [ foz_us] 80-99 Automated erythrocyte mean corpuscular h emoglobin (mass per erythrocyte) 29 pg 25-34 Automated erythrocyte mean corpuscular h emoglobin concentration measurement (mass/volume) 33 g/dL 32-36 Automated erythrocyte distribution width ratio 13. 2 % 10.0- 14.5 Automated blood platelet count (count/volume) 294 10*3/uL [...] 10*3 1.0-4.0 Blood monocytes automated count (number/volume) 0. 7 10*3 0.0-1.0 Automated eosinophil count 0.3 10*3/uL 0 .0-0.3 Automated blood basophil count (count/volume) 0.0 10*3/uL 0.0-0.1 Whole blood basic metabolic panel - 01/29 04/15 21:10 Serum or plasma sodium measurement (moles/volume) 140 mmol/L 135-145 Serum or plasma potassium measurement (moles/volume) 4.0 mmol/L 3.6-5.0 Serum or plasma chloride measurement (moles/volume) 106 mmol/L 98-107 Carbon dioxide 22 mmol/L 21-32 Serum or plasma anion gap determination (moles/volume) 12 mmol/L 5-14 Serum or plasma urea nitrogen measurement (mass/volume ) 16 mg/dL 7-18 Serum or plasma creatinine measurement (mass/volume) 1.13 mg/dL 0.60-1.30 Serum or plasma urea nitrogen/creatinine mass ratio 14 NRG Serum or plasma creatinine measurement w ith calculation of estimated glomerular filtration rate 46 NRG Serum or plasma glucose measurement (mass/volume) 160 mg/dL 70-105 Serum or plasma calcium measurement (mass/volume) 10.0 mg/dL 8.5-10.1 Erythrocyte sedimentation rate by jasvir gren method - 02/22/17 21:10 Erythrocyte sedimentation rate by westergren method 10 mm 0- 30 Capillary blood glucose measurement by g lucometer (mass/volume) - 03/20/17 09:14 Capillary blood glucose measurement by glucometer (mas s/volume) 134 mg/dL 70-110 Complete urinalysis with reflex to cultu re - 04/27/17 01:10 Urine color determination YELLOW NRG Urine clarity determination CLEAR NR G Urine pH measurement by test strip 6 5-9 Specific gravity of urine by test strip 1.005 1.016-1.022 Urine protein assay by test strip, semi-quantitative 1+ NEGATIVE Urine glucose detection by automated test strip NE GATIVE NEGATIVE Erythrocytes detection in urine sediment by light micr oscopy NEGATIVE NEGATIVE Urine ketones detection by automated test strip NE GATIVE NEGATIVE Urine nitrite detection by test strip NEGATIVE NEGATIVE Urine total bilirubin detection by test strip NEGA TIVE NEGATIVE Urine urobilinogen measurement by automated test strip (mass/volume) NORMAL NORMAL Urine leukocyte esterase detection by dipstick NEG ATIVE NEGATIVE Automated urine sediment erythrocyte cou nt by microscopy (number/high power field) NONE NRG Automated urine sediment leukocyte count by microscopy (number/high power field) NONE NRG Bacteria detection in urine sediment by light microsco py NEGATIVE NRG Squamous epithelial cells detection in u rine sediment by light microscopy 5-10 NRG Crystals detection in urine sediment by light microsco py NONE NRG Casts detection in urine sediment by light microscopy NONE NRG Mucus detection in urine sediment by light microscopy NEGATIVE NRG Complete urinalysis with reflex to culture NO NRG Serum or plasma troponin i.cardiac measu rement (mass/volume) - 04/27/17 22:30 Serum or plasma troponin i.cardiac measurement (mass/v olume) < ng/mL <0.30 Complete blood count (CBC) with automate d white blood cell (WBC) differential - 04/27/17 23:00 Blood leukocytes automated count (number/volume) 12.1 10*3/uL 4.3-11.0 Blood erythrocytes automated count (number/volume) 4.86 10*6/uL 4.35-5.85 Venous blood hemoglobin measurement (mass/volume) 14.3 g/dL 11.5-16.0 Blood hematocrit (volume fraction) 43 % 35-52 Automated erythrocyte mean corpuscular volume 89 [ foz_us] 80-99 Automated erythrocyte mean corpuscular h emoglobin (mass per erythrocyte) 29 pg 25-34 Automated erythrocyte mean corpuscular h emoglobin concentration measurement (mass/volume) 33 g/dL 32-36 Automated erythrocyte distribution width ratio 13. 6 % 10.0- 14.5 Automated blood platelet count (count/volume) 292 10*3/uL [...] 10*3 1.0-4.0 Blood monocytes automated count (number/volume) 0. 9 10*3 0.0-1.0 Automated eosinophil count 0.2 10*3/uL 0 .0-0.3 Automated blood basophil count (count/volume) 0.0 10*3/uL 0.0-0.1 Comprehensive metabolic panel - 04/27/17 23:00 Serum or plasma sodium measurement (moles/volume) 141 mmol/L 135-145 Serum or plasma potassium measurement (moles/volume) 4.0 mmol/L 3.6-5.0 Serum or plasma chloride measurement (moles/volume) 104 mmol/L 98-107 Carbon dioxide 21 mmol/L 21-32 Serum or plasma anion gap determination (moles/volume) 16 mmol/L 5-14 Serum or plasma urea nitrogen measurement (mass/volume ) 16 mg/dL 7-18 Serum or plasma creatinine measurement (mass/volume) 0.99 mg/dL 0.60-1.30 Serum or plasma urea nitrogen/creatinine mass ratio 16 NRG Serum or plasma creatinine measurement w ith calculation of estimated glomerular filtration rate 54 NRG Serum or plasma glucose measurement (mass/volume) 170 mg/dL 70-105 Serum or plasma calcium measurement (mass/volume) 10.0 mg/dL 8.5-10.1 Serum or plasma total bilirubin measurement (mass/volu me) 0.4 mg/dL 0.1-1.0 Serum or plasma alkaline phosphatase guy surement (enzymatic activity/volume) 114 U/L 40-136 Serum or plasma aspartate aminotransfera se measurement (enzymatic activity/volume) 42 U/L 5-34 Serum or plasma alanine aminotransferase measurement (enzymatic activity/volume) 33 U/L 0-55 Serum or plasma protein measurement (mass/volume) 7.3 g/dL 6.4-8.2 Serum or plasma albumin measurement (mass/volume) 4.2 g/dL 3.2-4.5 Magnesium - 04/27/17 23:00 Magnesium 1.8 mg/dL 1.8-2.4 Lipase - 04/27/17 23:00 Lipase 52 U/L 8-78 THYROID STIMULATING HORMONE - 01/02/18 0 9:39 THYROID STIMULATING HORMONE 1.18 u[iU]/mL 0.35-4.94 Complete blood count (CBC) with automate d white blood cell (WBC) differential - 01/17/18 00:20 Blood leukocytes automated count (number/volume) 20.2 10*3/uL 4.3-11.0 Blood erythrocytes automated count (number/volume) 3.92 10*6/uL 4.35-5.85 Venous blood hemoglobin measurement (mass/volume) 11.5 g/dL 11.5-16.0 Blood hematocrit (volume fraction) 35 % 35-52 Automated erythrocyte mean corpuscular volume 90 [ foz_us] 80-99 Automated erythrocyte mean corpuscular h emoglobin (mass per erythrocyte) 29 pg 25-34 Automated erythrocyte mean corpuscular h emoglobin concentration measurement (mass/volume) 33 g/dL 32-36 Automated erythrocyte distribution width ratio 13. 7 % 10.0- 14.5 Automated blood platelet count (count/volume) 304 10*3/uL [...] 10*3 1.0-4.0 Blood monocytes automated count (number/volume) 1. 2 10*3 0.0-1.0 Automated eosinophil count 0.2 10*3/uL 0 .0-0.3 Automated blood basophil count (count/volume) 0.0 10*3/uL 0.0-0.1 Comprehensive metabolic panel - 01/17/18 00:20 Serum or plasma sodium measurement (moles/volume) 135 mmol/L 135-145 Serum or plasma potassium measurement (moles/volume) 4.2 mmol/L 3.6-5.0 Serum or plasma chloride measurement (moles/volume) 104 mmol/L 98-107 Carbon dioxide 18 mmol/L 21-32 Serum or plasma anion gap determination (moles/volume) 13 mmol/L 5-14 Serum or plasma urea nitrogen measurement (mass/volume ) 19 mg/dL 7-18 Serum or plasma creatinine measurement (mass/volume) 0.89 mg/dL 0.60-1.30 Serum or plasma urea nitrogen/creatinine mass ratio 21 NRG Serum or plasma creatinine measurement w ith calculation of estimated glomerular filtration rate > NRG Serum or plasma glucose measurement (mass/volume) 203 mg/dL 70-105 Serum or plasma calcium measurement (mass/volume) 9.6 mg/dL 8.5-10.1 Serum or plasma total bilirubin measurement (mass/volu me) 0.8 mg/dL 0.1-1.0 Serum or plasma alkaline phosphatase guy surement (enzymatic activity/volume) 107 U/L 40-136 Serum or plasma aspartate aminotransfera se measurement (enzymatic activity/volume) 73 U/L 5-34 Serum or plasma alanine aminotransferase measurement (enzymatic activity/volume) 45 U/L 0-55 Serum or plasma protein measurement (mass/volume) 6.6 g/dL 6.4-8.2 Serum or plasma albumin measurement (mass/volume) 3.9 g/dL 3.2-4.5 Magnesium - 01/17/18 00:20 Magnesium 1.5 mg/dL 1.8-2.4 Blood manual differential performed dete ction - 01/17/18 00:20 Blood monocytes/100 leukocytes 4 % NRG Manual blood segmented neutrophils/100 leukocytes 83 % NRG Blood band neutrophils/100 leukocytes 1 % NRG Manual blood lymphocytes/100 leukocytes 10 % NRG Manual eosinophils/100 leukocytes in nose 2 % NRG Manual blood basophils/100 leukocytes 0 % NRG Blood erythrocyte morphology finding identification NORMAL NRG Lipase - 01/17/18 00:20 Lipase 618 U/L 8-78 Bacterial blood culture - 01/17/18 01:00 Bacterial blood culture NG NRG Blood lactic acid measurement (moles/vol ume) - 01/17/18 01:50 Blood lactic acid measurement (moles/volume) 1.39 mmol/L 0.50-2.00 Bacterial blood culture - 01/17/18 01:50 Bacterial blood culture NG NRG Complete urinalysis with reflex to cultu re - 01/17/18 01:55 Urine color determination ORANGE NRG Urine clarity determination SLIGHTLY CLOUDY NRG Urine pH measurement by test strip 5 5-9 Specific gravity of urine by test strip 1.030 1.016-1.022 Urine protein assay by test strip, semi-quantitative 2+ NEGATIVE Urine glucose detection by automated test strip NE GATIVE NEGATIVE Erythrocytes detection in urine sediment by light micr oscopy 2+ NEGATIVE Urine ketones detection by automated test strip NE GATIVE NEGATIVE Urine nitrite detection by test strip POSITIVE NEGATIVE Urine total bilirubin detection by test strip 1+ NEGATIVE Urine urobilinogen measurement by automated test strip (mass/volume) 1 mg/dL NORMAL Urine leukocyte esterase detection by dipstick 3+ NEGATIVE Automated urine sediment erythrocyte cou nt by microscopy (number/high power field) NONE NRG Automated urine sediment leukocyte count by microscopy (number/high power field) > [HPF] NRG Bacteria detection in urine sediment by light microsco py MODERATE NRG Squamous epithelial cells detection in u rine sediment by light microscopy 10-25 NRG Crystals detection in urine sediment by light microsco py NONE NRG Casts detection in urine sediment by light microscopy NONE NRG Mucus detection in urine sediment by light microscopy NEGATIVE NRG Complete urinalysis with reflex to culture YES NRG Bacterial urine culture - 01/17/18 01:55 Bacterial urine culture [id number] NRG COLONY COUNT 10,000/ML - 100,000/ML NRG FTX;REPORTABLE SENSITIVITY REPORTED 01/19/18 9:10 NRG Bacterial susceptibility panel - 8 01:55 Gentamicin susceptibility test by minimum inhibitory c oncentration <= NRG Trimethoprim/sulfamethoxazole susceptibi lity test by minimum inhibitoryconcentration S NRG Ampicillin susceptibility test by minimum inhibitory c oncentration >= NRG Tobramycin susceptibility test by minimum inhibitory c oncentration <= NRG Cefazolin susceptibility test by minimum inhibitory co ncentration <= NRG Ceftriaxone susceptibility test by minimum inhibitory concentration <= NRG Ampicillin/sulbactam susceptibility test by minimum inhibitory concentration S NRG Piperacillin/tazobactam susceptibility t est by minimum inhibitory concentration S NRG Ciprofloxacin susceptibility test by minimum inhibitor y concentration <= NRG Meropenem susceptibility test by minimum inhibitory co ncentration <= NRG Nitrofurantoin susceptibility test by mi nimum inhibitory concentration <= NRG Aztreonam susceptibility test by minimum inhibitory co ncentration <= NRG Extended spectrum beta lactamase (ESBL) producing bacteria susceptibility test by minimum inhibitory concentration - [facility] Bacterial susceptibility panel - 8 01:55 Gentamicin susceptibility test by minimum inhibitory c oncentration S NRG Vancomycin susceptibility test by minimum inhibitory c oncentration 1 NRG Levofloxacin susceptibility test by minimum inhibitory concentration 0.5 NRG Tetracycline susceptibility test by minimum inhibitory concentration >= NRG Ampicillin susceptibility test by minimum inhibitory c oncentration <= NRG Nitrofurantoin susceptibility test by mi nimum inhibitory concentration <= NRG Linezolid susceptibility test by minimum inhibitory co ncentration 2 NRG Complete blood count (CBC) with automate d white blood cell (WBC) differential - 01/17/18 06:58 Blood leukocytes automated count (number/volume) 18.0 10*3/uL 4.3-11.0 Blood erythrocytes automated count (number/volume) 3.75 10*6/uL 4.35-5.85 Venous blood hemoglobin measurement (mass/volume) 11.0 g/dL 11.5-16.0 Blood hematocrit (volume fraction) 34 % 35-52 Automated erythrocyte mean corpuscular volume 91 [ foz_us] 80-99 Automated erythrocyte mean corpuscular h emoglobin (mass per erythrocyte) 29 pg 25-34 Automated erythrocyte mean corpuscular h emoglobin concentration measurement (mass/volume) 32 g/dL 32-36 Automated erythrocyte distribution width ratio 13. 8 % 10.0- 14.5 Automated blood platelet count (count/volume) 268 10*3/uL 130-400 Automated blood platelet mean volume measurement 8.8 [foz_us] 7.4-10.4 Automated blood neutrophils/100 leukocytes 85 % 42-75 Automated blood lymphocytes/100 leukocytes 9 % 12-44 Blood monocytes/100 leukocytes 6 % 0-12 Automated blood eosinophils/100 leukocytes 0 % 0-10 Automated blood basophils/100 leukocytes 0 % 0-10 Blood neutrophils automated count (number/volume) 15.4 10*3 1.8-7.8 Blood lymphocytes automated count (number/volume) 1.6 10*3 1.0-4.0 Blood monocytes automated count (number/volume) 1. 0 10*3 0.0-1.0 Automated eosinophil count 0.0 10*3/uL 0 .0-0.3 Automated blood basophil count (count/volume) 0.0 10*3/uL 0.0-0.1 Whole blood basic metabolic panel - 12/29 11/16 06:58 Serum or plasma sodium measurement (moles/volume) 136 mmol/L 135-145 Serum or plasma potassium measurement (moles/volume) 4.5 mmol/L 3.6-5.0 Serum or plasma chloride measurement (moles/volume) 107 mmol/L 98-107 Carbon dioxide 22 mmol/L 21-32 Serum or plasma anion gap determination (moles/volume) 7 mmol/L 5-14 Serum or plasma urea nitrogen measurement (mass/volume ) 14 mg/dL 7-18 Serum or plasma creatinine measurement (mass/volume) 0.78 mg/dL 0.60-1.30 Serum or plasma urea nitrogen/creatinine mass ratio 18 NRG Serum or plasma creatinine measurement w ith calculation of estimated glomerular filtration rate > NRG Serum or plasma glucose measurement (mass/volume) 215 mg/dL 70-105 Serum or plasma calcium measurement (mass/volume) 8.8 mg/dL 8.5-10.1 Capillary blood glucose measurement by g lucometer (mass/volume) - 01/17/18 10:55 Capillary blood glucose measurement by glucometer (mas s/volume) 178 mg/dL 70-110 Capillary blood glucose measurement by g lucometer (mass/volume) - 01/17/18 16:01 Capillary blood glucose measurement by glucometer (mas s/volume) 195 mg/dL 70-110 Capillary blood glucose measurement by g lucometer (mass/volume) - 01/17/18 19:40 Capillary blood glucose measurement by glucometer (mas s/volume) 118 mg/dL 70-110 Capillary blood glucose measurement by g lucometer (mass/volume) - 01/18/18 05:09 Capillary blood glucose measurement by glucometer (mas s/volume) 136 mg/dL 70-110 Capillary blood glucose measurement by g lucometer (mass/volume) - 01/18/18 10:50 Capillary blood glucose measurement by glucometer (mas s/volume) 114 mg/dL 70-110 Capillary blood glucose measurement by g lucometer (mass/volume) - 01/18/18 15:46 Capillary blood glucose measurement by glucometer (mas s/volume) 137 mg/dL 70-110 Capillary blood glucose measurement by g lucometer (mass/volume) - 01/18/18 20:31 Capillary blood glucose measurement by glucometer (mas s/volume) 186 mg/dL 70-110 Capillary blood glucose measurement by g lucometer (mass/volume) - 01/19/18 06:11 Capillary blood glucose measurement by glucometer (mas s/volume) 137 mg/dL 70-110 Complete blood count (CBC) with automate d white blood cell (WBC) differential - 01/19/18 08:48 Blood leukocytes automated count (number/volume) 10.5 10*3/uL 4.3-11.0 Blood erythrocytes automated count (number/volume) 3.25 10*6/uL 4.35-5.85 Venous blood hemoglobin measurement (mass/volume) 9.4 g/dL 11.5-16.0 Blood hematocrit (volume fraction) 30 % 35-52 Automated erythrocyte mean corpuscular volume 91 [ foz_us] 80-99 Automated erythrocyte mean corpuscular h emoglobin (mass per erythrocyte) 29 pg 25-34 Automated erythrocyte mean corpuscular h emoglobin concentration measurement (mass/volume) 32 g/dL 32-36 Automated erythrocyte distribution width ratio 14. 4 % 10.0- 14.5 Automated blood platelet count (count/volume) 215 10*3/uL 130-400 Automated blood platelet mean volume measurement 9.2 [foz_us] 7.4-10.4 Automated blood neutrophils/100 leukocytes 83 % 42-75 Automated blood lymphocytes/100 leukocytes 11 % 12-44 Blood monocytes/100 leukocytes 5 % 0-12 Automated blood eosinophils/100 leukocytes 1 % 0-10 Automated blood basophils/100 leukocytes 0 % 0-10 Blood neutrophils automated count (number/volume) 8.7 10*3 1.8-7.8 Blood lymphocytes automated count (number/volume) 1.2 10*3 1.0-4.0 Blood monocytes automated count (number/volume) 0. 5 10*3 0.0-1.0 Automated eosinophil count 0.1 10*3/uL 0 .0-0.3 Automated blood basophil count (count/volume) 0.0 10*3/uL 0.0-0.1 Whole blood basic metabolic panel - 12/29 01/14 08:48 Serum or plasma sodium measurement (moles/volume) 138 mmol/L 135-145 Serum or plasma potassium measurement (moles/volume) 4.0 mmol/L 3.6-5.0 Serum or plasma chloride measurement (moles/volume) 109 mmol/L 98-107 Carbon dioxide 24 mmol/L 21-32 Serum or plasma anion gap determination (moles/volume) 5 mmol/L 5-14 Serum or plasma urea nitrogen measurement (mass/volume ) 13 mg/dL 7-18 Serum or plasma creatinine measurement (mass/volume) 0.92 mg/dL 0.60-1.30 Serum or plasma urea nitrogen/creatinine mass ratio 14 NRG Serum or plasma creatinine measurement w ith calculation of estimated glomerular filtration rate 58 NRG Serum or plasma glucose measurement (mass/volume) 208 mg/dL 70-105 Serum or plasma calcium measurement (mass/volume) 9.0 mg/dL 8.5-10.1 Capillary blood glucose measurement by g lucometer (mass/volume) - 01/19/18 11:32 Capillary blood glucose measurement by glucometer (mas s/volume) 107 mg/dL 70-110 Capillary blood glucose measurement by g lucometer (mass/volume) - 01/19/18 15:49 Capillary blood glucose measurement by glucometer (mas s/volume) 156 mg/dL 70-110 Complete urinalysis with reflex to cultu re - 01/21/18 15:50 Urine color determination YELLOW NRG Urine clarity determination CLEAR NR G Urine pH measurement by test strip 5 5-9 Specific gravity of urine by test strip 1.010 1.016-1.022 Urine protein assay by test strip, semi-quantitative 2+ NEGATIVE Urine glucose detection by automated test strip NE GATIVE NEGATIVE Erythrocytes detection in urine sediment by light micr oscopy 1+ NEGATIVE Urine ketones detection by automated test strip NE GATIVE NEGATIVE Urine nitrite detection by test strip NEGATIVE NEGATIVE Urine total bilirubin detection by test strip NEGA TIVE NEGATIVE Urine urobilinogen measurement by automated test strip (mass/volume) NORMAL NORMAL Urine leukocyte esterase detection by dipstick 1+ NEGATIVE Automated urine sediment erythrocyte cou nt by microscopy (number/high power field) RARE NRG Automated urine sediment leukocyte count by microscopy (number/high power field) [HPF] NRG Bacteria detection in urine sediment by light microsco py NEGATIVE NRG Squamous epithelial cells detection in u rine sediment by light microscopy 10-25 NRG Crystals detection in urine sediment by light microsco py NONE NRG Casts detection in urine sediment by light microscopy NONE NRG Mucus detection in urine sediment by light microscopy NEGATIVE NRG Complete urinalysis with reflex to culture NO NRG Complete blood count (CBC) with automate d white blood cell (WBC) differential - 01/21/18 16:43 Blood leukocytes automated count (number/volume) 11.3 10*3/uL 4.3-11.0 Blood erythrocytes automated count (number/volume) 3.59 10*6/uL 4.35-5.85 Venous blood hemoglobin measurement (mass/volume) 10.5 g/dL 11.5-16.0 Blood hematocrit (volume fraction) 32 % 35-52 Automated erythrocyte mean corpuscular volume 88 [ foz_us] 80-99 Automated erythrocyte mean corpuscular h emoglobin (mass per erythrocyte) 29 pg 25-34 Automated erythrocyte mean corpuscular h emoglobin concentration measurement (mass/volume) 33 g/dL 32-36 Automated erythrocyte distribution width ratio 14. 9 % 10.0- 14.5 Automated blood platelet count (count/volume) 291 10*3/uL 130-400 Automated blood platelet mean volume measurement 10.1 [foz_us] 7.4-10.4 Automated blood neutrophils/100 leukocytes 79 % 42-75 Automated blood lymphocytes/100 leukocytes 14 % 12-44 Blood monocytes/100 leukocytes 7 % 0-12 Automated blood eosinophils/100 leukocytes 1 % 0-10 Automated blood basophils/100 leukocytes 0 % 0-10 Blood neutrophils automated count (number/volume) 8.9 10*3 1.8-7.8 Blood lymphocytes automated count (number/volume) 1.5 10*3 1.0-4.0 Blood monocytes automated count (number/volume) 0. 8 10*3 0.0-1.0 Automated eosinophil count 0.1 10*3/uL 0 .0-0.3 Automated blood basophil count (count/volume) 0.0 10*3/uL 0.0-0.1 PT panel in platelet poor plasma by coag ulation assay - 01/21/18 16:43 Prothrombin time (PT) in platelet poor plasma by coagu lation assay 13.9 s 12.2-14.7 INR in platelet poor plasma or blood by coagulation as say 1.1 0.8-1.4 Activated partial thromboplastin time (a PTT) in platelet poor plasma bycoagulation assay - 01/21/18 16:43 Activated partial thromboplastin time (a PTT) in platelet poor plasma bycoagulation assay 32 s 24-35 Blood lactic acid measurement (moles/vol ume) - 01/21/18 16:43 Blood lactic acid measurement (moles/volume) 1.62 mmol/L 0.50-2.00 Comprehensive metabolic panel - 01/21/18 16:43 Serum or plasma sodium measurement (moles/volume) 138 mmol/L 135-145 Serum or plasma potassium measurement (moles/volume) 3.4 mmol/L 3.6-5.0 Serum or plasma chloride measurement (moles/volume) 102 mmol/L 98-107 Carbon dioxide 25 mmol/L 21-32 Serum or plasma anion gap determination (moles/volume) 11 mmol/L 5-14 Serum or plasma urea nitrogen measurement (mass/volume ) 12 mg/dL 7-18 Serum or plasma creatinine measurement (mass/volume) 0.81 mg/dL 0.60-1.30 Serum or plasma urea nitrogen/creatinine mass ratio 15 NRG Serum or plasma creatinine measurement w ith calculation of estimated glomerular filtration rate > NRG Serum or plasma glucose measurement (mass/volume) 121 mg/dL 70-105 Serum or plasma calcium measurement (mass/volume) 10.1 mg/dL 8.5-10.1 Serum or plasma total bilirubin measurement (mass/volu me) 0.9 mg/dL 0.1-1.0 Serum or plasma alkaline phosphatase guy surement (enzymatic activity/volume) 150 U/L 40-136 Serum or plasma aspartate aminotransfera se measurement (enzymatic activity/volume) 37 U/L 5-34 Serum or plasma alanine aminotransferase measurement (enzymatic activity/volume) 111 U/L 0-55 Serum or plasma protein measurement (mass/volume) 6.8 g/dL 6.4-8.2 Serum or plasma albumin measurement (mass/volume) 3.6 g/dL 3.2-4.5 Magnesium - 01/21/18 16:43 Magnesium 1.4 mg/dL 1.8-2.4 Serum or plasma amylase measurement (enz ymatic activity/volume) - 01/21/18 16:43 Serum or plasma amylase measurement (enzymatic activit y/volume) 75 U/L 25-125 Lipase - 01/21/18 16:43 Lipase 272 U/L 8-78 Bacterial blood culture - 01/21/18 16:43 Bacterial blood culture NG NRG Bacterial blood culture - 01/21/18 17:27 Bacterial blood culture NG NRG RED CELLS LEUKO REDUCED AS1 - 01/29/18 1 5:05 RED CELLS LEUKO REDUCED AS1 T RANSFUSED 01/29/18 1549 NR Blood type T Indirect antibody screen [facility] 01/29/18 15:05 ABO+Rh group ON NRG Transfusion band number [id number] NR Blood group antibody screen NEGATIVE NR G Whole blood hemoglobin and hematocrit [facility] 01/29/18 18:15 Venous blood hemoglobin measurement (mass/volume) 12.4 g/dL 11.5-16.0 Blood hematocrit (volume fraction) 37 % 35-52 Automated blood complete blood count (he mogram) panel - 05/01/18 08:51 Blood leukocytes automated count (number/volume) 9.1 10*3/uL 4.3-11.0 Blood erythrocytes automated count (number/volume) 4.12 10*6/uL 4.35-5.85 Venous blood hemoglobin measurement (mass/volume) 12.4 g/dL 11.5-16.0 Blood hematocrit (volume fraction) 37 % 35-52 Automated erythrocyte mean corpuscular volume 90 [ foz_us] 80-99 Automated erythrocyte mean corpuscular h emoglobin (mass per erythrocyte) 30 pg 25-34 Automated erythrocyte mean corpuscular h emoglobin concentration measurement (mass/volume) 33 g/dL 32-36 Automated erythrocyte distribution width ratio 13. 8 % 10.0- 14.5 Automated blood platelet count (count/volume) 284 10*3/uL 130-400 Automated blood platelet mean volume measurement 8.7 [foz_us] 7.4-10.4 Comprehensive metabolic panel - 05/01/18 08:51 Serum or plasma sodium measurement (moles/volume) 141 mmol/L 135-145 Serum or plasma potassium measurement (moles/volume) 3.9 mmol/L 3.6-5.0 Serum or plasma chloride measurement (moles/volume) 105 mmol/L 98-107 Carbon dioxide 25 mmol/L 21-32 Serum or plasma anion gap determination (moles/volume) 11 mmol/L 5-14 Serum or plasma urea nitrogen measurement (mass/volume ) 18 mg/dL 7-18 Serum or plasma creatinine measurement (mass/volume) 1.02 mg/dL 0.60-1.30 Serum or plasma urea nitrogen/creatinine mass ratio 18 NRG Serum or plasma creatinine measurement w ith calculation of estimated glomerular filtration rate 52 NRG Serum or plasma glucose measurement (mass/volume) 162 mg/dL 70-105 Serum or plasma calcium measurement (mass/volume) 10.0 mg/dL 8.5-10.1 Serum or plasma total bilirubin measurement (mass/volu me) 0.4 mg/dL 0.1-1.0 Serum or plasma alkaline phosphatase guy surement (enzymatic activity/volume) 87 U/L 40-136 Serum or plasma aspartate aminotransfera se measurement (enzymatic activity/volume) 37 U/L 5-34 Serum or plasma alanine aminotransferase measurement (enzymatic activity/volume) 34 U/L 0-55 Serum or plasma protein measurement (mass/volume) 6.7 g/dL 6.4-8.2 Serum or plasma albumin measurement (mass/volume) 4.1 g/dL 3.2-4.5 Lipid 1996 panel - 05/01/18 08:51 Serum or plasma triglyceride measurement (mass/volume) 246 mg/dL <150 Serum or plasma cholesterol measurement (mass/volume) 124 mg/dL < 200 Serum or plasma cholesterol in HDL measurement (mass/v olume) 26 mg/dL 40-60 Cholesterol in LDL [mass/volume] in serum or plasma by direct assay 62 mg/dL 1-129 Serum or plasma cholesterol in VLDL measurement (mass/ volume) 49 mg/dL 5-40 Methicillin resistant Staphylococcus aur eus (MRSA) screening culture - 05/01/18 08:51 Methicillin resistant Staphylococcus aureus (MRSA) scr eening culture NEG NRG Complete urinalysis with reflex to cultu re - 11/20/18 14:50 Urine color determination YELLOW NRG Urine clarity determination SLIGHTLY CLOUDY NRG Urine pH measurement by test strip 5 5-9 Specific gravity of urine by test strip 1.015 1.016-1.022 Urine protein assay by test strip, semi-quantitative 2+ NEGATIVE Urine glucose detection by automated test strip NE GATIVE NEGATIVE Erythrocytes detection in urine sediment by light micr oscopy 2+ NEGATIVE Urine ketones detection by automated test strip NE GATIVE NEGATIVE Urine nitrite detection by test strip NEGATIVE NEGATIVE Urine total bilirubin detection by test strip NEGA TIVE NEGATIVE Urine urobilinogen measurement by automated test strip (mass/volume) NORMAL NORMAL Urine leukocyte esterase detection by dipstick 3+ NEGATIVE Automated urine sediment erythrocyte cou nt by microscopy (number/high power field) RARE NRG Automated urine sediment leukocyte count by microscopy (number/high power field) TNTC NRG Bacteria detection in urine sediment by light microsco py FEW NRG Squamous epithelial cells detection in u rine sediment by light microscopy 5-10 NRG Crystals detection in urine sediment by light microsco py NONE NRG Casts detection in urine sediment by light microscopy NONE NRG Mucus detection in urine sediment by light microscopy NEGATIVE NRG Complete urinalysis with reflex to culture YES NRG Bacterial urine culture - 11/20/18 14:50 Bacterial urine culture [id number] NRG COLONY COUNT >100,000/ML NRG FREE TEXT ENTRY 2 SENSITIVITY REPORTED 11/22/18 12: 05 NRG FREE TEXT ENTRY 3 ID REPORT SENT 11/21 11:05 NRG RML Sensitivity Panel - 11/20/18 14:50 Gentamicin susceptibility test by minimum inhibitory c oncentration 4 NRG Trimethoprim/sulfamethoxazole susceptibi lity test by minimum inhibitoryconcentration S NRG Levofloxacin susceptibility test by minimum inhibitory concentration <= NRG Ampicillin susceptibility test by minimum inhibitory c oncentration <= NRG Cefazolin susceptibility test by minimum inhibitory co ncentration 8 NRG Ceftriaxone susceptibility test by minimum inhibitory concentration <= NRG Ciprofloxacin susceptibility test by minimum inhibitor y concentration <= NRG Nitrofurantoin susceptibility test by ga nimum inhibitory concentration > NRG Amoxicillin and clavulanate potassium susc ROX <= NRG [id number] - 05/07/19 09:34 Serum or plasma urea nitrogen measurement (mass/volume ) 16 mg/dL 7-18 Serum or plasma creatinine measurement (mass/volume) 0.89 mg/dL 0.60-1.30 Serum or plasma urea nitrogen/creatinine mass ratio 18 NRG Serum or plasma creatinine measurement w ith calculation of estimated glomerular filtration rate 60 NRG Mycobacterium species detection by organ ism specific culture - 05/15/19 10:44 QUANTITY OF GROWTH . NRG Mycobacterium species detection by organism specific c ulture PROGRESS NRG Sputum Gram stain - 05/15/19 10:44 Sputum Gram stain NO BACTERIA SEEN NRG Bacteria identification in bronchial spe cimen by aerobe culture - 05/15/19 10:44 Bacteria identification in bronchial specimen by aerob e culture NG NRG Fungus culture - 05/15/19 10:44 Capillary blood glucose measurement by g lucometer (mass/volume) - 05/15/19 11:01 Capillary blood glucose measurement by glucometer (mas s/volume) 138 mg/dL 70-110 Complete blood count (CBC) with automate d white blood cell (WBC) differential - 05/31/19 10:32 Blood leukocytes automated count (number/volume) 11.0 10*3/uL 4.3-11.0 Blood erythrocytes automated count (number/volume) 4.30 10*6/uL 4.35-5.85 Venous blood hemoglobin measurement (mass/volume) 11.7 g/dL 11.5-16.0 Blood hematocrit (volume fraction) 38 % 35-52 Automated erythrocyte mean corpuscular volume 87 [ foz_us] 80-99 Automated erythrocyte mean corpuscular h emoglobin (mass per erythrocyte) 27 pg 25-34 Automated erythrocyte mean corpuscular h emoglobin concentration measurement (mass/volume) 31 g/dL 32-36 Automated erythrocyte distribution width ratio 14. 7 % 10.0- 14.5 Automated blood platelet count (count/volume) 340 10*3/uL 130-400 Automated blood platelet mean volume measurement 8.9 [foz_us] 7.4-10.4 Automated blood neutrophils/100 leukocytes 80 % 42-75 Automated blood lymphocytes/100 leukocytes 12 % 12-44 Blood monocytes/100 leukocytes 6 % 0-12 Automated blood eosinophils/100 leukocytes 2 % 0-10 Automated blood basophils/100 leukocytes 0 % 0-10 Blood neutrophils automated count (number/volume) 8.9 10*3 1.8-7.8 Blood lymphocytes automated count (number/volume) 1.3 10*3 1.0-4.0 Blood monocytes automated count (number/volume) 0. 6 10*3 0.0-1.0 Automated eosinophil count 0.3 10*3/uL 0 .0-0.3 Automated blood basophil count (count/volume) 0.0 10*3/uL 0.0-0.1 Comprehensive metabolic panel - 05/31/19 10:32 Serum or plasma sodium measurement (moles/volume) 138 mmol/L 135-145 Serum or plasma potassium measurement (moles/volume) 4.1 mmol/L 3.6-5.0 Serum or plasma chloride measurement (moles/volume) 101 mmol/L 98-107 Carbon dioxide 25 mmol/L 21-32 Serum or plasma anion gap determination (moles/volume) 12 mmol/L 5-14 Serum or plasma urea nitrogen measurement (mass/volume ) 15 mg/dL 7-18 Serum or plasma creatinine measurement (mass/volume) 0.92 mg/dL 0.60-1.30 Serum or plasma urea nitrogen/creatinine mass ratio 16 NRG Serum or plasma creatinine measurement w ith calculation of estimated glomerular filtration rate 58 NRG Serum or plasma glucose measurement (mass/volume) 182 mg/dL 70-105 Serum or plasma calcium measurement (mass/volume) 10.6 mg/dL 8.5-10.1 Serum or plasma total bilirubin measurement (mass/volu me) 0.3 mg/dL 0.1-1.0 Serum or plasma alkaline phosphatase guy surement (enzymatic activity/volume) 107 U/L 40-136 Serum or plasma aspartate aminotransfera se measurement (enzymatic activity/volume) 23 U/L 5-34 Serum or plasma alanine aminotransferase measurement (enzymatic activity/volume) 19 U/L 0-55 Serum or plasma protein measurement (mass/volume) 7.4 g/dL 6.4-8.2 Serum or plasma albumin measurement (mass/volume) 4.1 g/dL 3.2-4.5 CALCIUM CORRECTED 10.5 mg/dL 8.5-10.1 THYROID STIMULATING HORMONE - 05/31/19 1 0:32 THYROID STIMULATING HORMONE 1.00 u[iU]/mL 0.35-4.94 Serum ragweed IgE antibody assay - 05/31 10:32 [id number] 5.9 % 0.0-5.0 Complete blood count (CBC) with automate d white blood cell (WBC) differential - 08/25/19 12:26 Blood leukocytes automated count (number/volume) 7.1 10*3/uL 4.3-11.0 Blood erythrocytes automated count (number/volume) 4.35 10*6/uL 4.35-5.85 Venous blood hemoglobin measurement (mass/volume) 11.6 g/dL 11.5-16.0 Blood hematocrit (volume fraction) 39 % 35-52 Automated erythrocyte mean corpuscular volume 89 [ foz_us] 80-99 Automated erythrocyte mean corpuscular h emoglobin (mass per erythrocyte) 27 pg 25-34 Automated erythrocyte mean corpuscular h emoglobin concentration measurement (mass/volume) 30 g/dL 32-36 Automated erythrocyte distribution width ratio 17. 4 % 10.0- 14.5 Automated blood platelet count (count/volume) 302 10*3/uL 130-400 Automated blood platelet mean volume measurement 8.9 [foz_us] 7.4-10.4 Automated blood neutrophils/100 leukocytes 84 % 42-75 Automated blood lymphocytes/100 leukocytes 7 % 12-44 Blood monocytes/100 leukocytes 6 % 0-12 Automated blood eosinophils/100 leukocytes 2 % 0-10 Automated blood basophils/100 leukocytes 0 % 0-10 Blood neutrophils automated count (number/volume) 6.0 10*3 1.8-7.8 Blood lymphocytes automated count (number/volume) 0.5 10*3 1.0-4.0 Blood monocytes automated count (number/volume) 0. 4 10*3 0.0-1.0 Automated eosinophil count 0.2 10*3/uL 0 .0-0.3 Automated blood basophil count (count/volume) 0.0 10*3/uL 0.0-0.1 Comprehensive metabolic panel - 08/25/19 12:26 Serum or plasma sodium measurement (moles/volume) 138 mmol/L 135-145 Serum or plasma potassium measurement (moles/volume) 4.1 mmol/L 3.6-5.0 Serum or plasma chloride measurement (moles/volume) 102 mmol/L 98-107 Carbon dioxide 18 mmol/L 21-32 Serum or plasma anion gap determination (moles/volume) 18 mmol/L 5-14 Serum or plasma urea nitrogen measurement (mass/volume ) 13 mg/dL 7-18 Serum or plasma creatinine measurement (mass/volume) 1.05 mg/dL 0.60-1.30 Serum or plasma urea nitrogen/creatinine mass ratio 12 NRG Serum or plasma creatinine measurement w ith calculation of estimated glomerular filtration rate 50 NRG Serum or plasma glucose measurement (mass/volume) 317 mg/dL 70-105 Serum or plasma calcium measurement (mass/volume) 9.8 mg/dL 8.5-10.1 Serum or plasma total bilirubin measurement (mass/volu me) 0.3 mg/dL 0.1-1.0 Serum or plasma alkaline phosphatase guy surement (enzymatic activity/volume) 111 U/L 40-136 Serum or plasma aspartate aminotransfera se measurement (enzymatic activity/volume) 25 U/L 5-34 Serum or plasma alanine aminotransferase measurement (enzymatic activity/volume) 19 U/L 0-55 Serum or plasma protein measurement (mass/volume) 7.2 g/dL 6.4-8.2 Serum or plasma albumin measurement (mass/volume) 4.0 g/dL 3.2-4.5 CALCIUM CORRECTED 9.8 mg/dL 8.5-10.1 Manual absolute plasma cell count - 07/31 05/17 12:26 Blood monocytes/100 leukocytes 8 % NRG Manual blood segmented neutrophils/100 leukocytes 82 % NRG Blood band neutrophils/100 leukocytes 6 % NRG Manual blood lymphocytes/100 leukocytes 4 % NRG Blood erythrocyte morphology finding identification NORMAL NRG Blood lactic acid measurement (moles/vol ume) - 08/25/19 12:54 Blood lactic acid measurement (moles/volume) 3.64 mmol/L 0.50-2.00 Bacterial blood culture - 08/25/19 12:54 Bacterial blood culture NG NRG Bacterial blood culture - 08/25/19 13:16 Bacterial blood culture NG NRG Complete urinalysis with reflex to cultu re - 08/25/19 13:29 Urine color determination Y NRG Urine clarity determination SL CLOUDY N RG Urine pH measurement by test strip 5 5-9 Specific gravity of urine by test strip 1.020 1.016-1.022 Urine protein assay by test strip, semi-quantitative 2+ NEGATIVE Urine glucose detection by automated test strip 4+ NEGATIVE Erythrocytes detection in urine sediment by light micr oscopy 2+ NEGATIVE Urine ketones detection by automated test strip NE GATIVE NEGATIVE Urine nitrite detection by test strip POSITIVE NEGATIVE Urine total bilirubin detection by test strip NEGA TIVE NEGATIVE Urine urobilinogen measurement by automated test strip (mass/volume) NORMAL NORMAL Urine leukocyte esterase detection by dipstick 3+ NEGATIVE Automated urine sediment erythrocyte cou nt by microscopy (number/high power field) NONE NRG Automated urine sediment leukocyte count by microscopy (number/high power field) TNTC NRG Bacteria detection in urine sediment by light microsco py LARGE NRG Squamous epithelial cells detection in u rine sediment by light microscopy RARE NRG Crystals detection in urine sediment by light microsco py NONE NRG Casts detection in urine sediment by light microscopy NONE NRG Mucus detection in urine sediment by light microscopy SMALL NRG Complete urinalysis with reflex to culture YES NRG Bacterial urine culture - 08/25/19 13:29 Bacterial urine culture [id number] NRG COLONY COUNT >100,000/ML NRG FTX;REPORTABLE SUSCEPTIBILITY REPORTED 08/27/19 11 :05 NRG Dirithromycin susceptibility test by dis k diffusion - 08/25/19 13:29 Gentamicin susceptibility test by minimum inhibitory c oncentration <= NRG Trimethoprim/sulfamethoxazole susceptibi lity test by minimum inhibitoryconcentration <= NRG Levofloxacin susceptibility test by minimum inhibitory concentration <= NRG Ampicillin susceptibility test by minimum inhibitory c oncentration <= NRG Cefazolin susceptibility test by minimum inhibitory co ncentration <= NRG Ceftriaxone susceptibility test by minimum inhibitory concentration <= NRG Ciprofloxacin susceptibility test by minimum inhibitor y concentration <= NRG Meropenem susceptibility test by minimum inhibitory co ncentration <= NRG Nitrofurantoin susceptibility test by mi nimum inhibitory concentration <= NRG Amoxicillin and clavulanate potassium susc ROX <= NRG Serum or plasma lactate measurement (mol es/volume) - 08/25/19 14:55 Serum or plasma lactate measurement (moles/volume) 2.18 mmol/L 0.50-2.00 Complete urinalysis with reflex to cultu re - 10/12/19 18:48 Urine color determination YELLOW NRG Urine clarity determination TURBID NR G Urine pH measurement by test strip 5.0 5-9 Specific gravity of urine by test strip >= 1.016-1.022 Urine protein assay by test strip, semi-quantitative TRACE NEGATIVE Urine glucose detection by automated test strip NE GATIVE NEGATIVE Erythrocytes detection in urine sediment by light micr oscopy 1+ NEGATIVE Urine ketones detection by automated test strip NE GATIVE NEGATIVE Urine nitrite detection by test strip POSITIVE NEGATIVE Urine total bilirubin detection by test strip NEGA TIVE NEGATIVE Urine urobilinogen measurement by automated test strip (mass/volume) 0.2 mg/dL < = 1.0 Urine leukocyte esterase detection by dipstick 2+ NEGATIVE Automated urine sediment erythrocyte cou nt by microscopy (number/high power field) NONE NRG Automated urine sediment leukocyte count by microscopy (number/high power field) TNTC NRG Bacteria detection in urine sediment by light microsco py LARGE NRG Squamous epithelial cells detection in u rine sediment by light microscopy NONE NRG Crystals detection in urine sediment by light microsco py NONE NRG Casts detection in urine sediment by light microscopy NONE NRG Mucus detection in urine sediment by light microscopy NEGATIVE NRG Complete urinalysis with reflex to culture YES NRG Bacterial urine culture - 10/12/19 18:48 Bacterial urine culture [id number] NRG COLONY COUNT >100,000/ML NRG FTX;REPORTABLE SUSCEPTIBILITY REPORTED 10/14 10:35 NRG Dirithromycin susceptibility test by dis k diffusion - 10/12/19 18:48 Gentamicin susceptibility test by minimum inhibitory c oncentration <= NRG Trimethoprim/sulfamethoxazole susceptibi lity test by minimum inhibitoryconcentration <= NRG Levofloxacin susceptibility test by minimum inhibitory concentration <= NRG Ampicillin susceptibility test by minimum inhibitory c oncentration > NRG Cefazolin susceptibility test by minimum inhibitory co ncentration 8 NRG Ceftriaxone susceptibility test by minimum inhibitory concentration <= NRG Ciprofloxacin susceptibility test by minimum inhibitor y concentration <= NRG Meropenem susceptibility test by minimum inhibitory co ncentration <= NRG Nitrofurantoin susceptibility test by mi nimum inhibitory concentration 32 NRG Amoxicillin and clavulanate potassium susc ROX <= NRG Capillary blood glucose measurement by g lucometer (mass/volume) - 11/05/19 16:01 Capillary blood glucose measurement by glucometer (mas s/volume) 259 mg/dL 70-110 Capillary blood glucose measurement by g lucometer (mass/volume) - 12/23/19 04:15 Capillary blood glucose measurement by glucometer (mas s/volume) 163 mg/dL 70-110 Complete blood count (CBC) with automate d white blood cell (WBC) differential - 12/23/19 04:25 Blood leukocytes automated count (number/volume) 8.2 10*3/uL 4.3-11.0 Blood erythrocytes automated count (number/volume) 4.36 10*6/uL 4.35-5.85 Venous blood hemoglobin measurement (mass/volume) 11.3 g/dL 11.5-16.0 Blood hematocrit (volume fraction) 36 % 35-52 Automated erythrocyte mean corpuscular volume 83 [ foz_us] 80-99 Automated erythrocyte mean corpuscular h emoglobin (mass per erythrocyte) 26 pg 25-34 Automated erythrocyte mean corpuscular h emoglobin concentration measurement (mass/volume) 31 g/dL 32-36 Automated erythrocyte distribution width ratio 15. 7 % 10.0- 14.5 Automated blood platelet count (count/volume) 326 10*3/uL 130-400 Automated blood platelet mean volume measurement 8.3 [foz_us] 7.4-10.4 Automated blood neutrophils/100 leukocytes 77 % 42-75 Automated blood lymphocytes/100 leukocytes 13 % 12-44 Blood monocytes/100 leukocytes 8 % 0-12 Automated blood eosinophils/100 leukocytes 2 % 0-10 Automated blood basophils/100 leukocytes 0 % 0-10 Blood neutrophils automated count (number/volume) 6.3 10*3 1.8-7.8 Blood lymphocytes automated count (number/volume) 1.1 10*3 1.0-4.0 Blood monocytes automated count (number/volume) 0. 6 10*3 0.0-1.0 Automated eosinophil count 0.2 10*3/uL 0 .0-0.3 Automated blood basophil count (count/volume) 0.0 10*3/uL 0.0-0.1 Comprehensive metabolic panel - 12/23/19 04:25 Serum or plasma sodium measurement (moles/volume) 139 mmol/L 135-145 Serum or plasma potassium measurement (moles/volume) 3.7 mmol/L 3.6-5.0 Serum or plasma chloride measurement (moles/volume) 100 mmol/L 98-107 Carbon dioxide 23 mmol/L 21-32 Serum or plasma anion gap determination (moles/volume) 16 mmol/L 5-14 Serum or plasma urea nitrogen measurement (mass/volume ) 15 mg/dL 7-18 Serum or plasma creatinine measurement (mass/volume) 0.98 mg/dL 0.60-1.30 Serum or plasma urea nitrogen/creatinine mass ratio 15 NRG Serum or plasma creatinine measurement w ith calculation of estimated glomerular filtration rate 54 NRG Serum or plasma glucose measurement (mass/volume) 176 mg/dL 70-105 Serum or plasma calcium measurement (mass/volume) 10.8 mg/dL 8.5-10.1 Serum or plasma total bilirubin measurement (mass/volu me) 0.3 mg/dL 0.1-1.0 Serum or plasma alkaline phosphatase guy surement (enzymatic activity/volume) 127 U/L 40-136 Serum or plasma aspartate aminotransfera se measurement (enzymatic activity/volume) 16 U/L 5-34 Serum or plasma alanine aminotransferase measurement (enzymatic activity/volume) 25 U/L 0-55 Serum or plasma protein measurement (mass/volume) 7.5 g/dL 6.4-8.2 Serum or plasma albumin measurement (mass/volume) 4.1 g/dL 3.2-4.5 CALCIUM CORRECTED 10.7 mg/dL 8.5-10.1 Complete urinalysis with reflex to cultu re - 12/23/19 04:51 Urine color determination YELLOW NRG Urine clarity determination CLEAR NR G Urine pH measurement by test strip 7.0 5-9 Specific gravity of urine by test strip <= 1.016-1.022 Urine protein assay by test strip, semi-quantitative NEGATIVE NEGATIVE Urine glucose detection by automated test strip NE GATIVE NEGATIVE Erythrocytes detection in urine sediment by light micr oscopy TRACE-I NEGATIVE Urine ketones detection by automated test strip NE GATIVE NEGATIVE Urine nitrite detection by test strip NEGATIVE NEGATIVE Urine total bilirubin detection by test strip NEGA TIVE NEGATIVE Urine urobilinogen measurement by automated test strip (mass/volume) 0.2 mg/dL < = 1.0 Urine leukocyte esterase detection by dipstick 3+ NEGATIVE Automated urine sediment erythrocyte cou nt by microscopy (number/high power field) NONE NRG Automated urine sediment leukocyte count by microscopy (number/high power field) > [HPF] NRG Bacteria detection in urine sediment by light microsco py LARGE NRG Squamous epithelial cells detection in u rine sediment by light microscopy 2-5 NRG Crystals detection in urine sediment by light microsco py NONE NRG Casts detection in urine sediment by light microscopy NONE NRG Mucus detection in urine sediment by light microscopy NEGATIVE NRG Complete urinalysis with reflex to culture YES NRG Bacterial urine culture - 12/23/19 04:51 Bacterial urine culture [id number] NRG COLONY COUNT >100,000/ML NRG FTX;REPORTABLE SUSCEPTIBILITIES REPORTED [id number] NRG Dirithromycin susceptibility test by dis k diffusion - 12/23/19 04:51 Gentamicin susceptibility test by minimum inhibitory c oncentration <= NRG Trimethoprim/sulfamethoxazole susceptibi lity test by minimum inhibitoryconcentration > NRG Levofloxacin susceptibility test by minimum inhibitory concentration <= NRG Ampicillin susceptibility test by minimum inhibitory c oncentration > NRG Cefazolin susceptibility test by minimum inhibitory co ncentration 4 NRG Ceftriaxone susceptibility test by minimum inhibitory concentration <= NRG Ciprofloxacin susceptibility test by minimum inhibitor y concentration <= NRG Meropenem susceptibility test by minimum inhibitory co ncentration <= NRG Nitrofurantoin susceptibility test by mi nimum inhibitory concentration 32 NRG Amoxicillin and clavulanate potassium susc ROX = NRG Dirithromycin susceptibility test by dis k diffusion - 12/23/19 04:51 Gentamicin susceptibility test by minimum inhibitory c oncentration <= NRG Trimethoprim/sulfamethoxazole susceptibi lity test by minimum inhibitoryconcentration > NRG Levofloxacin susceptibility test by minimum inhibitory concentration <= NRG Ampicillin susceptibility test by minimum inhibitory c oncentration > NRG Cefazolin susceptibility test by minimum inhibitory co ncentration 2 NRG Ceftriaxone susceptibility test by minimum inhibitory concentration <= NRG Ciprofloxacin susceptibility test by minimum inhibitor y concentration <= NRG Meropenem susceptibility test by minimum inhibitory co ncentration <= NRG Nitrofurantoin susceptibility test by mi nimum inhibitory concentration > NRG Amoxicillin and clavulanate potassium susc ROX = NRG Capillary blood glucose measurement by g lucometer (mass/volume) - 12/23/19 10:45 Capillary blood glucose measurement by glucometer (mas s/volume) 323 mg/dL 70-110 Capillary blood glucose measurement by g lucometer (mass/volume) - 12/23/19 11:56 Capillary blood glucose measurement by glucometer (mas s/volume) 252 mg/dL 70-110 Capillary blood glucose measurement by g lucometer (mass/volume) - 12/23/19 15:38 Capillary blood glucose measurement by glucometer (mas s/volume) 190 mg/dL 70-110 Capillary blood glucose measurement by g lucometer (mass/volume) - 12/23/19 20:41 Capillary blood glucose measurement by glucometer (mas s/volume) 185 mg/dL 70-110 Capillary blood glucose measurement by g lucometer (mass/volume) - 12/24/19 06:07 Capillary blood glucose measurement by glucometer (mas s/volume) 200 mg/dL 70-110 Complete blood count (CBC) with automate d white blood cell (WBC) differential - 12/24/19 06:45 Blood leukocytes automated count (number/volume) 8.2 10*3/uL 4.3-11.0 Blood erythrocytes automated count (number/volume) 3.79 10*6/uL 4.35-5.85 Venous blood hemoglobin measurement (mass/volume) 9.9 g/dL 11.5-16.0 Blood hematocrit (volume fraction) 32 % 35-52 Automated erythrocyte mean corpuscular volume 85 [ foz_us] 80-99 Automated erythrocyte mean corpuscular h emoglobin (mass per erythrocyte) 26 pg 25-34 Automated erythrocyte mean corpuscular h emoglobin concentration measurement (mass/volume) 31 g/dL 32-36 Automated erythrocyte distribution width ratio 15. 6 % 10.0- 14.5 Automated blood platelet count (count/volume) 341 10*3/uL 130-400 Automated blood platelet mean volume measurement 8.9 [foz_us] 7.4-10.4 Automated blood neutrophils/100 leukocytes 80 % 42-75 Automated blood lymphocytes/100 leukocytes 12 % 12-44 Blood monocytes/100 leukocytes 6 % 0-12 Automated blood eosinophils/100 leukocytes 2 % 0-10 Automated blood basophils/100 leukocytes 0 % 0-10 Blood neutrophils automated count (number/volume) 6.5 10*3 1.8-7.8 Blood lymphocytes automated count (number/volume) 1.0 10*3 1.0-4.0 Blood monocytes automated count (number/volume) 0. 5 10*3 0.0-1.0 Automated eosinophil count 0.2 10*3/uL 0 .0-0.3 Automated blood basophil count (count/volume) 0.0 10*3/uL 0.0-0.1 Comprehensive metabolic panel - 12/24/19 06:45 Serum or plasma sodium measurement (moles/volume) 139 mmol/L 135-145 Serum or plasma potassium measurement (moles/volume) 4.0 mmol/L 3.6-5.0 Serum or plasma chloride measurement (moles/volume) 106 mmol/L 98-107 Carbon dioxide 21 mmol/L 21-32 Serum or plasma anion gap determination (moles/volume) 12 mmol/L 5-14 Serum or plasma urea nitrogen measurement (mass/volume ) 11 mg/dL 7-18 Serum or plasma creatinine measurement (mass/volume) 0.81 mg/dL 0.60-1.30 Serum or plasma urea nitrogen/creatinine mass ratio 14 NRG Serum or plasma creatinine measurement w ith calculation of estimated glomerular filtration rate > NRG Serum or plasma glucose measurement (mass/volume) 188 mg/dL 70-105 Serum or plasma calcium measurement (mass/volume) 9.9 mg/dL 8.5-10.1 Serum or plasma total bilirubin measurement (mass/volu me) 0.3 mg/dL 0.1-1.0 Serum or plasma alkaline phosphatase guy surement (enzymatic activity/volume) 97 U/L 40-136 Serum or plasma aspartate aminotransfera se measurement (enzymatic activity/volume) 19 U/L 5-34 Serum or plasma alanine aminotransferase measurement (enzymatic activity/volume) 18 U/L 0-55 Serum or plasma protein measurement (mass/volume) 6.3 g/dL 6.4-8.2 Serum or plasma albumin measurement (mass/volume) 3.5 g/dL 3.2-4.5 CALCIUM CORRECTED 10.3 mg/dL 8.5-10.1 Manual absolute plasma cell count - 12/01 03/18 06:45 Blood monocytes/100 leukocytes 7 % NRG Manual blood segmented neutrophils/100 leukocytes 77 % NRG Blood band neutrophils/100 leukocytes 1 % NRG Manual blood lymphocytes/100 leukocytes 13 % NRG Manual blood lymphocytes variant/100 leukocytes 2 % NRG Blood polychromasia detection by light microscopy SLIGHT NRG Blood anisocytosis detection by light microscopy S LIGHT NRG Blood poikilocytosis detection by light microscopy SLIGHT NRG Blood [place] cells detection by light microscopy SLI GHT NRG Capillary blood glucose measurement by g lucometer (mass/volume) - 12/24/19 11:06 Capillary blood glucose measurement by glucometer (mas s/volume) 190 mg/dL 70-110 Capillary blood glucose measurement by g lucometer (mass/volume) - 12/24/19 15:44 Capillary blood glucose measurement by glucometer (mas s/volume) 184 mg/dL 70-110 Capillary blood glucose measurement by g lucometer (mass/volume) - 12/24/19 21:07 Capillary blood glucose measurement by glucometer (mas s/volume) 250 mg/dL 70-110 Capillary blood glucose measurement by g lucometer (mass/volume) - 12/25/19 04:42 Capillary blood glucose measurement by glucometer (mas s/volume) 193 mg/dL 70-110 Capillary blood glucose measurement by g lucometer (mass/volume) - 12/25/19 11:05 Capillary blood glucose measurement by glucometer (mas s/volume) 161 mg/dL 70-110 Capillary blood glucose measurement by g lucometer (mass/volume) - 12/25/19 15:23 Capillary blood glucose measurement by glucometer (mas s/volume) 219 mg/dL 70-110 Capillary blood glucose measurement by g lucometer (mass/volume) - 12/25/19 20:24 Capillary blood glucose measurement by glucometer (mas s/volume) 218 mg/dL 70-110 Capillary blood glucose measurement by g lucometer (mass/volume) - 12/26/19 06:13 Capillary blood glucose measurement by glucometer (mas s/volume) 204 mg/dL 70-110 Capillary blood glucose measurement by g lucometer (mass/volume) - 12/26/19 10:51 Capillary blood glucose measurement by glucometer (mas s/volume) 227 mg/dL 70-110 Capillary blood glucose measurement by g lucometer (mass/volume) - 12/26/19 15:58 Capillary blood glucose measurement by glucometer (mas s/volume) 158 mg/dL 70-110 Capillary blood glucose measurement by g lucometer (mass/volume) - 12/26/19 20:41 Capillary blood glucose measurement by glucometer (mas s/volume) 196 mg/dL 70-110 Capillary blood glucose measurement by g lucometer (mass/volume) - 12/27/19 05:37 Capillary blood glucose measurement by glucometer (mas s/volume) 199 mg/dL 70-110 Capillary blood glucose measurement by g lucometer (mass/volume) - 12/27/19 11:00 Capillary blood glucose measurement by glucometer (mas s/volume) 199 mg/dL 70-110 Capillary blood glucose measurement by g lucometer (mass/volume) - 12/27/19 15:22 Capillary blood glucose measurement by glucometer (mas s/volume) 191 mg/dL 70-110 Capillary blood glucose measurement by g lucometer (mass/volume) - 12/27/19 20:35 Capillary blood glucose measurement by glucometer (mas s/volume) 213 mg/dL 70-110 Capillary blood glucose measurement by g lucometer (mass/volume) - 12/28/19 05:00 Capillary blood glucose measurement by glucometer (mas s/volume) 246 mg/dL 70-110 Capillary blood glucose measurement by g lucometer (mass/volume) - 12/28/19 11:09 Capillary blood glucose measurement by glucometer (mas s/volume) 255 mg/dL 70-110 Capillary blood glucose measurement by g lucometer (mass/volume) - 12/28/19 16:00 Capillary blood glucose measurement by glucometer (mas s/volume) 195 mg/dL 70-110 Capillary blood glucose measurement by g lucometer (mass/volume) - 12/28/19 20:09 Capillary blood glucose measurement by glucometer (mas s/volume) 143 mg/dL 70-110 Capillary blood glucose measurement by g lucometer (mass/volume) - 12/29/19 06:04 Capillary blood glucose measurement by glucometer (mas s/volume) 190 mg/dL 70-110 Capillary blood glucose measurement by g lucometer (mass/volume) - 12/29/19 10:40 Capillary blood glucose measurement by glucometer (mas s/volume) 212 mg/dL 70-110 Capillary blood glucose measurement by g lucometer (mass/volume) - 12/29/19 15:45 Capillary blood glucose measurement by glucometer (mas s/volume) 132 mg/dL 70-110 Capillary blood glucose measurement by g lucometer (mass/volume) - 12/29/19 20:41 Capillary blood glucose measurement by glucometer (mas s/volume) 187 mg/dL 70-110 Complete blood count (CBC) with automate d white blood cell (WBC) differential - 12/30/19 05:45 Blood leukocytes automated count (number/volume) 8.4 10*3/uL 4.3-11.0 Blood erythrocytes automated count (number/volume) 3.59 10*6/uL 4.35-5.85 Venous blood hemoglobin measurement (mass/volume) 9.4 g/dL 11.5-16.0 Blood hematocrit (volume fraction) 31 % 35-52 Automated erythrocyte mean corpuscular volume 85 [ foz_us] 80-99 Automated erythrocyte mean corpuscular h emoglobin (mass per erythrocyte) 26 pg 25-34 Automated erythrocyte mean corpuscular h emoglobin concentration measurement (mass/volume) 31 g/dL 32-36 Automated erythrocyte distribution width ratio 15. 7 % 10.0- 14.5 Automated blood platelet count (count/volume) 484 10*3/uL 130-400 Automated blood platelet mean volume measurement 8.9 [foz_us] 7.4-10.4 Automated blood neutrophils/100 leukocytes 76 % 42-75 Automated blood lymphocytes/100 leukocytes 11 % 12-44 Blood monocytes/100 leukocytes 10 % 0-12 Automated blood eosinophils/100 leukocytes 3 % 0-10 Automated blood basophils/100 leukocytes 0 % 0-10 Blood neutrophils automated count (number/volume) 6.3 10*3 1.8-7.8 Blood lymphocytes automated count (number/volume) 0.9 10*3 1.0-4.0 Blood monocytes automated count (number/volume) 0. 8 10*3 0.0-1.0 Automated eosinophil count 0.3 10*3/uL 0 .0-0.3 Automated blood basophil count (count/volume) 0.0 10*3/uL 0.0-0.1 Comprehensive metabolic panel - 12/30/19 05:45 Serum or plasma sodium measurement (moles/volume) 140 mmol/L 135-145 Serum or plasma potassium measurement (moles/volume) 4.0 mmol/L 3.6-5.0 Serum or plasma chloride measurement (moles/volume) 106 mmol/L 98-107 Carbon dioxide 22 mmol/L 21-32 Serum or plasma anion gap determination (moles/volume) 12 mmol/L 5-14 Serum or plasma urea nitrogen measurement (mass/volume ) 13 mg/dL 7-18 Serum or plasma creatinine measurement (mass/volume) 0.84 mg/dL 0.60-1.30 Serum or plasma urea nitrogen/creatinine mass ratio 15 NRG Serum or plasma creatinine measurement w ith calculation of estimated glomerular filtration rate > NRG Serum or plasma glucose measurement (mass/volume) 181 mg/dL 70-105 Serum or plasma calcium measurement (mass/volume) 9.6 mg/dL 8.5-10.1 Serum or plasma total bilirubin measurement (mass/volu me) 0.2 mg/dL 0.1-1.0 Serum or plasma alkaline phosphatase guy surement (enzymatic activity/volume) 104 U/L 40-136 Serum or plasma aspartate aminotransfera se measurement (enzymatic activity/volume) 26 U/L 5-34 Serum or plasma alanine aminotransferase measurement (enzymatic activity/volume) 27 U/L 0-55 Serum or plasma protein measurement (mass/volume) 6.1 g/dL 6.4-8.2 Serum or plasma albumin measurement (mass/volume) 3.4 g/dL 3.2-4.5 CALCIUM CORRECTED 10.1 mg/dL 8.5-10.1 Capillary blood glucose measurement by g lucometer (mass/volume) - 12/30/19 10:53 Capillary blood glucose measurement by glucometer (mas s/volume) 241 mg/dL 70-110 Complete urinalysis with reflex to cultu re - 01/31/20 18:31 Urine color determination YELLOW NRG Urine clarity determination CLEAR NR G Urine pH measurement by test strip 5.0 5-9 Specific gravity of urine by test strip 1.020 1.016-1.022 Urine protein assay by test strip, semi-quantitative NEGATIVE NEGATIVE Urine glucose detection by automated test strip NE GATIVE NEGATIVE Erythrocytes detection in urine sediment by light micr oscopy NEGATIVE NEGATIVE Urine ketones detection by automated test strip NE GATIVE NEGATIVE Urine nitrite detection by test strip POSITIVE NEGATIVE Urine total bilirubin detection by test strip NEGA TIVE NEGATIVE Urine urobilinogen measurement by automated test strip (mass/volume) 0.2 mg/dL < = 1.0 Urine leukocyte esterase detection by dipstick 1+ NEGATIVE Automated urine sediment erythrocyte cou nt by microscopy (number/high power field) NONE NRG Automated urine sediment leukocyte count by microscopy (number/high power field) [HPF] NRG Bacteria detection in urine sediment by light microsco py LARGE NRG Crystals detection in urine sediment by light microsco py NONE NRG Casts detection in urine sediment by light microscopy NONE NRG Mucus detection in urine sediment by light microscopy NEGATIVE NRG Complete urinalysis with reflex to culture YES NRG Bacterial urine culture - 01/31/20 18:31 Bacterial urine culture [id number] NRG COLONY COUNT >100,000/ML NRG SUSCEPTIBILITY SUSCEPTIBILITY REPORTED 02/01 11:30 NRG RAPID ID PROBABLE KLEB OXYTOCA AT VCP 01/31 NRG ID CONFIRMATION RML CONFIRMED 02/01 NRG Dirithromycin susceptibility test by dis k diffusion - 01/31/20 18:31 Gentamicin susceptibility test by minimum inhibitory c oncentration <= NRG Trimethoprim/sulfamethoxazole susceptibi lity test by minimum inhibitoryconcentration <= NRG Levofloxacin susceptibility test by minimum inhibitory concentration <= NRG Ampicillin susceptibility test by minimum inhibitory c oncentration > NRG Cefazolin susceptibility test by minimum inhibitory co ncentration 2 NRG Ceftriaxone susceptibility test by minimum inhibitory concentration <= NRG Ciprofloxacin susceptibility test by minimum inhibitor y concentration <= NRG Meropenem susceptibility test by minimum inhibitory co ncentration <= NRG Nitrofurantoin susceptibility test by mi nimum inhibitory concentration <= NRG Amoxicillin and clavulanate potassium susc ROX <= NRG Complete blood count (CBC) with automate d white blood cell (WBC) differential - 03/10/20 15:10 Blood leukocytes automated count (number/volume) 11.4 10*3/uL 4.3-11.0 Blood erythrocytes automated count (number/volume) 3.82 10*6/uL 4.35-5.85 Venous blood hemoglobin measurement (mass/volume) 9.5 g/dL 11.5-16.0 Blood hematocrit (volume fraction) 32 % 35-52 Automated erythrocyte mean corpuscular volume 83 [ foz_us] 80-99 Automated erythrocyte mean corpuscular h emoglobin (mass per erythrocyte) 25 pg 25-34 Automated erythrocyte mean corpuscular h emoglobin concentration measurement (mass/volume) 30 g/dL 32-36 Automated erythrocyte distribution width ratio 16. 1 % 10.0- 14.5 Automated blood platelet count (count/volume) 570 10*3/uL 130-400 Automated blood platelet mean volume measurement 9.3 [foz_us] 7.4-10.4 Automated blood neutrophils/100 leukocytes 84 % 42-75 Automated blood lymphocytes/100 leukocytes 8 % 12-44 Blood monocytes/100 leukocytes 6 % 0-12 Automated blood eosinophils/100 leukocytes 2 % 0-10 Automated blood basophils/100 leukocytes 0 % 0-10 Blood neutrophils automated count (number/volume) 9.6 10*3 1.8-7.8 Blood lymphocytes automated count (number/volume) 1.0 10*3 1.0-4.0 Blood monocytes automated count (number/volume) 0. 7 10*3 0.0-1.0 Automated eosinophil count 0.2 10*3/uL 0 .0-0.3 Automated blood basophil count (count/volume) 0.0 10*3/uL 0.0-0.1 Comprehensive metabolic panel - 03/10/20 15:10 Serum or plasma sodium measurement (moles/volume) 137 mmol/L 135-145 Serum or plasma potassium measurement (moles/volume) 4.3 mmol/L 3.6-5.0 Serum or plasma chloride measurement (moles/volume) 98 mmol/L 98-107 Carbon dioxide 23 mmol/L 21-32 Serum or plasma anion gap determination (moles/volume) 16 mmol/L 5-14 Serum or plasma urea nitrogen measurement (mass/volume ) 14 mg/dL 7-18 Serum or plasma creatinine measurement (mass/volume) 0.97 mg/dL 0.60-1.30 Serum or plasma urea nitrogen/creatinine mass ratio 14 NRG Serum or plasma creatinine measurement w ith calculation of estimated glomerular filtration rate 55 NRG Serum or plasma glucose measurement (mass/volume) 241 mg/dL 70-105 Serum or plasma calcium measurement (mass/volume) 10.6 mg/dL 8.5-10.1 Serum or plasma total bilirubin measurement (mass/volu me) 0.4 mg/dL 0.1-1.0 Serum or plasma alkaline phosphatase guy surement (enzymatic activity/volume) 119 U/L 40-136 Serum or plasma aspartate aminotransfera se measurement (enzymatic activity/volume) 21 U/L 5-34 Serum or plasma alanine aminotransferase measurement (enzymatic activity/volume) 9 U/L 0-55 Serum or plasma protein measurement (mass/volume) 8.1 g/dL 6.4-8.2 Serum or plasma albumin measurement (mass/volume) 4.1 g/dL 3.2-4.5 CALCIUM CORRECTED 10.5 mg/dL 8.5-10.1 Serum or plasma lithium measurement (mol es/volume) - 03/10/20 15:10 BNP PT 13.9 pg/mL <100.0 Complete urinalysis with reflex to cultu re - 03/10/20 16:45 Urine color determination YELLOW NRG Urine clarity determination CLEAR NR G Urine pH measurement by test strip 5.5 5-9 Specific gravity of urine by test strip 1.020 1.016-1.022 Urine protein assay by test strip, semi-quantitative NEGATIVE NEGATIVE Urine glucose detection by automated test strip TR MAGDA NEGATIVE Erythrocytes detection in urine sediment by light micr oscopy NEGATIVE NEGATIVE Urine ketones detection by automated test strip NE GATIVE NEGATIVE Urine nitrite detection by test strip NEGATIVE NEGATIVE Urine total bilirubin detection by test strip NEGA TIVE NEGATIVE Urine urobilinogen measurement by automated test strip (mass/volume) 0.2 mg/dL < = 1.0 Urine leukocyte esterase detection by dipstick 1+ NEGATIVE Automated urine sediment erythrocyte cou nt by microscopy (number/high power field) NONE NRG Automated urine sediment leukocyte count by microscopy (number/high power field) [HPF] NRG Bacteria detection in urine sediment by light microsco py FEW NRG Crystals detection in urine sediment by light microsco py NONE NRG Casts detection in urine sediment by light microscopy NONE NRG Mucus detection in urine sediment by light microscopy NEGATIVE NRG Complete urinalysis with reflex to culture YES NRG Yeast detection in urine sediment by light microscopy FEW NRG Encounters ACCT No. Visit Date/Time Discharge Status Pt. Type Provider Facility Loc./Unit Complaint [id number] 01/31/2020 19:23:00 23:59:59 CLS Outpatient SUN MIJARES MD [facility] LABNPT [id number] 12/23/2019 11:16:00 14:40:00 DIS Inpatient HELADIO MODI DO, [facility] IRF DEBILITY [id number] 12/23/2019 06:21:00 10:30:00 DIS Inpatient ODNALD REDDY MD [facility] 4TH UTI,PHYSICAL DEBILITY [id number] 11/11/2019 13:05:00 00:01:00 DIS Outpatient HALLE HENNING MD [facility] ONC [id number] 11/06/2019 09:32:00 23:59:59 CLS Outpatient HALLE HENNING MD [facility] RAD LUNG CANCER,NAUSEA AND VOMITING [id number] 11/05/2019 15:35:00 17:07:00 DIS Emergency MALLORY TORRES MD [facility] ER BLOOD SUGAR WAS HIGH [id number] 10/24/2019 10:15:00 23:59:59 CLS Preadmit HALLE HENNING MD [facility] RAD LUNG CANCER,NAUSEA AND VOMITING [id number] 10/12/2019 17:59:00 19:43:00 DIS Emergency GRIFFIN FAYE [facility] ER FALL - BILAT HIP / LEG PAIN [id number] 09/23/2019 11:48:00 23:59:59 CLS Outpatient HALLE HENNING MD [facility] RAD LUNG CA [id number] 08/29/2019 14:50:00 00:01:00 DIS Outpatient HALLE HENNING MD [facility] ONC [id number] 08/25/2019 12:05:00 16:10:00 DIS Emergency GRIFFIN FAYE [facility] ER BURNING WITH URINATION/ SHAKY [id number] 05/15/2019 07:53:00 12:56:00 DIS Outpatient CHELI CASE DO [facility] ENDO EXERTIONAL DYSPNEA/SOB [id number] 05/14/2019 08:55:00 23:59:59 CLS Outpatient CHELI CASE DO [facility] RAD LUNG MASS,SOB,COUGH [id number] 05/07/2019 09:25:00 23:59:59 CLS Outpatient CHELI CASE DO [facility] RAD LUNG MASS [id number] 05/06/2019 13:07:00 23:59:59 CLS Outpatient CHELI CASE DO [facility] RT EXERTIONAL DYSPNEA,SOB, LUNG MASS [id number] 04/23/2019 15:28:00 23:59:59 CLS Outpatient FAIZAN RAHMAN, ALLISON Pan [facility] RAD CHEST X-RAY [id number] 11/29/2018 06:42:00 019 23:59:59 CLS Outpatient JACQUELIN RAHMAN FACEllen, JAZMIN BLANCHARD CC DS [facility] CARD CAD, FATIGU E, HYPERLIPIDEMIA [id number] 11/20/2018 14:33:00 019 23:59:59 CLS Outpatient MUNIR ROCHE MD [facility] LAB UTI [id number] 05/01/2018 08:04:00 018 15:55:00 DIS Outpatient JACQUELIN RAHMAN FACC, JAZMIN BLANCHARD CC DS [facility] CATH CLAUDICATIO N,LEG DISCOMFORT [id number] 01/29/2018 14:39:00 018 18:30:00 DIS Outpatient ALLISON GLORIA MD [facility] SDC ANEMIA,CHRONIC FATIGUE [id number] 01/21/2018 14:31:00 018 18:53:00 DIS Emergency ZARA DO, BRET K [facility] ER CANT EAT,FEVER [id number] 01/17/2018 02:55:00 018 19:00:00 DIS Inpatient JUDITH HINES MD [facility] 4TH PYELONEPHITIS,PANCREATI TIS [id number] 01/11/2018 12:47:00 018 23:59:59 CLS Outpatient ALLISON GLORIA MD [facility] RAD THYROMEGALY [id number] 01/11/2018 12:46:00 018 23:59:59 CLS Outpatient JACQUELIN RAHMAN FACC, JAZMIN BLANCHARD CC DS [facility] CARD I25.10 CAD [id number] 01/02/2018 09:30:00 018 23:59:59 CLS Outpatient ALLISON GLORIA MD [facility] LAB E01.0 [id number] 04/27/2017 23:01:00 017 02:02:00 DIS Emergency NOLVIA GUTIERREZ MD [facility] ER VOMITTING/WEAKN ESS [id number] 03/20/2017 08:41:00 017 11:50:00 DIS Outpatient LINDSEY RAHMAN, DIANE Alejo [facility] ENDO ULCER [id number] 03/17/2017 05:50:00 017 11:28:00 DIS Outpatient DAINE PORTILLO MD [facility] PREOP ULCERS [id number] 02/22/2017 20:10:00 017 23:30:00 DIS Emergency KEELOPEZ VEHICLE RETURN ASSOCIATE [facility] ER LEFT SIDE FACE PAIN [id number] 01/27/2017 00:10:00 017 23:59:59 CLS Preadmit JOYCE MONAE VEHICLE RETURN ASSOCIATE [facility] LAB ACUTE DIARRHEA,VOMITING [id number] 11/28/2016 14:37:00 017 00:01:00 DIS Outpatient JOYCE MONAE APRN [facility] LAB ACUTE DIARRHEA, VOMITING [id number] 12/05/2016 13:39:00 017 23:59:59 CLS Outpatient ALLISON GLORIA MD [facility] RAD GOITER DIFFUSE,NON TOXI C [id number] 11/28/2016 14:24:00 017 23:59:59 CLS Outpatient ALLISON GLORIA MD [facility] LAB GOITER DIFFUSE,NONTOXIC [id number] 11/16/2016 20:06:00 017 10:25:00 DIS Inpatient MUNIR ROCHE MD [facility] 4TH POST OP PAIN,BLADDER LE AKAGE EXTRAPERITONEAL [id number] 11/16/2016 05:58:00 017 12:30:00 DIS [facility] [id number] 11/15/2016 12:40:00 017 12:53:00 DIS Outpatient MUNIR ROCHE MD [facility] PREOP BLADDER TUMOR [id number] 11/07/2016 13:01:00 017 17:26:00 DIS Emergency NATHAN URIAS [facility] ER CONGESTION, WELTS, CON FUSION [id number] 10/28/2016 10:56:00 016 12:25:00 DIS Emergency 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 [facility] ER DIARRHEA [id number] 10/27/2016 11:12:00 016 14:53:00 DIS Emergency GRIFFIN FAYEP [facility] ER DIARRHEA/WEAKNESS [id number] 10/17/2016 09:52:00 016 13:20:00 DIS Outpatient DIANE PORTILLO MD [facility] SDC UPPER GASTRIC PAIN [id number] 10/13/2016 05:56:00 23:59:59 CLS Outpatient DIANE PORTILLO MD [facility] PREOP UPPER GASTRIC PAIN [id number] 10/11/2016 07:58:00 016 23:59:59 CLS Outpatient JACQUELIN RAHMAN FACC, JAZMIN NORWOODP CC DS [facility] CARD CAD,CAROTID ARTERIAL DISEASE,HLP,GERD [id number] 05/19/2016 14:20:00 016 17:21:00 DIS Emergency JUDITH HINES MD [facility] ER CONSTIPATION/ABD PAIN [id number] 11/13/2015 10:21:00 016 08:50:00 DIS Inpatient FAIZAN RAHMAN, ALLISON R [facility] 4TH Volume Depletion,Vomiti ng,Diarrhea [id number] 11/08/2015 13:34:00 016 16:55:00 DIS Emergency LIA RAHMAN, CARLTON Padilla [facility] ER POST OP/DIGESTION ISSUE S/VOMITING [id number] 10/11/2015 08:25:00 17:33:00 DIS Inpatient ARAVIND RAHMAN, ALBERTO [place] ia [facility] 4TH POST OP HYPOXIA [id number] 10/06/2015 08:41:00 23:59:59 CLS Outpatient ALBERTO NAZARIO MD [facility] PREOP HEMORRHOIDS [id number] 09/15/2015 10:36:00 23:59:59 CLS Outpatient ALLISON GLORIA MD [facility] ANEMIA BLOOD LOSS [id number] 09/03/2015 10:18:00 09:00:00 DIS Inpatient ALLISON GLORIA MD [facility] 4TH ABD PAIN,FEVER,ANEMIA [id number] 09/01/2015 12:02:00 23:59:59 CLS Outpatient ALLISON GLORIA MD [facility] RAD PESISTANT DIARRHEA AND VOMITTING [id number] 09/01/2015 11:26:00 23:59:59 CLS Outpatient ALLISON GLORIA MD [facility] LAB PERSISTENT DIARRHEA,VOM ITTING [id number] 08/21/2015 10:31:00 23:59:59 CLS Outpatient JACQUELIN RAHMAN FACC, JAZMIN NORWOODP CC DS [facility] CARD CAD,FATIGUE [id number] 08/18/2015 12:05:00 23:59:59 CLS Outpatient JACQUELIN RAHMAN FACC, JAZMIN NORWOODP CC DS [facility] CARD CAD,FATIGUE [id number] 04/02/2015 14:52:00 23:59:59 CLS Outpatient ALLISON GLORIA MD [facility] RAD L MID/LOWER BACK PAIN [id number] 03/23/2015 14:00:00 015 16:59:00 DIS Emergency NATHAN URIAS [facility] ER UPPER LEFT BACK PAIN [id number] 11/05/2014 09:50:00 12:45:00 DIS Outpatient ALBERTO NAZARIO MD [facility] SDC REFLUX [id number] 10/31/2014 06:08:00 015 23:59:59 CLS Outpatient ALBERTO NAZARIO MD [facility] PREOP REFLUX [id number] 08/05/2014 07:49:00 16:55:00 DIS Outpatient JACQUELIN RAHMAN FACC, JAZMIN BLANCHARD CC DS [facility] CATH EXERTIONAL DSYPNEA,CAD,DM [id number] 05/16/2014 11:19:00 23:59:59 CLS Outpatient FAIZAN RAHMAN, ALLISON Pan [facility] RAD SCREENING [id number] 01/22/2014 07:30:00 014 12:00:00 DIS Outpatient ALBERTO NAZARIO MD [facility] SDC HISTORY OF POLYPS [id number] 01/15/2014 07:31:00 23:59:59 CLS Outpatient ALBERTO NAZARIO MD [facility] PREOP HISTORY OF POLYPS [id number] 10/03/2013 13:09:00 16:05:00 DIS Emergency DONNY RAHMAN, JUDITH Longoria [facility] ER WEAKNESS [id number] 05/06/2013 09:21:00 23:59:59 CLS Outpatient NEEMA HENSLEY [facility] CARD CAD,DYSPNEA [id number] 04/18/2013 14:55:00 23:59:59 CLS Outpatient KAYLEIGH RAHMAN, FELIBERTO Chow [facility] RAD LFT SI DSYFUNCTION [id number] 03/10/2020 15:24:00 Document Registration [id number] 10/07/2019 11:19:00 Document Registration [id number] 11/30/2015 00:00:00 Document Registration [id number] 07/26/2012 15:08:00 Document Registration [id number] 12/30/2011 16:49:00 Document Registration [id number] 10/24/2011 21:30:00 Document Registration [id number] 10/17/2011 05:40:00 Document Registration [id number] 10/11/2011 12:19:00 Document Registration [id number] 08/30/2011 08:54:00 Document Registration [id number] 03/24/2011 12:50:00 Document Registration [id number] 01/14/2011 15:04:00 Document Registration [id number] 01/07/2011 10:59:00 Document Registration [id number] 11/20/2010 18:40:00 Document Registration [id number] 09/15/2010 07:20:00 Document Registration
== END 2020-03-10 17:15 | disposition home or self-care (01) ==
LOC: EDUNIT# 14:56 → ER 14:57
DX: C34.90 Malignant neoplasm of unspecified part of unspecified bronchus or lung (principal); C79.9 Secondary malignant neoplasm of unspecified site; N39.0 Urinary tract infection, site not specified; I10 Essential (primary) hypertension; E11.9 Type 2 diabetes mellitus without complications; E78.00 Pure hypercholesterolemia, unspecified; I25.10 Atherosclerotic heart disease of native coronary artery without angina pectoris; Z80.8 Family history of malignant neoplasm of other organs or systems; Z88.2 Allergy status to sulfonamides; Z88.1 Allergy status to other antibiotic agents; Z88.8 Allergy status to other drugs, medicaments and biological substances; Z79.4 Long term (current) use of insulin; Z87.891 Personal history of nicotine dependence; Z95.5 Presence of coronary angioplasty implant and graft; Z95.1 Presence of aortocoronary bypass graft
CPT/HCPCS: 36415; 71045; 80053; 81000; 83880; 85025; 87088

== ENCOUNTER → 2020-05-02 | Outpatient (CLI) | payer MEDICARE, OTHER ==
[~2020-05-02] MED LIST changes: +AMOX500C2 PO; +BENZ100C18 PO
[2020-05-02 12:29] LABS: BILIRUBIN,URINE NEGATIVE (NEGATIVE); CLARITY,URINE CLOUDY; COLOR,URINE YELLOW; GLUCOSE, URINE (UA) NEGATIVE (NEGATIVE); KETONES,URINE NEGATIVE (NEGATIVE); LEUKOCYTE ESTERASE ,URINE 3+ (NEGATIVE); NITRITE,URINE POSITIVE (NEGATIVE); PH,URINE 5.5 (5-9); PROTEIN,URINE NEGATIVE (NEGATIVE)
[2020-05-02 12:40] LABS: WBC,URINE TNTC /HPF
[2020-05-02 12:41] LABS: BACTERIA,URINE FEW /HPF
== END ==
LOC: LABNPT 12:23
PROVIDERS: ATTEND Internal Medicine
DX: R30.0 Dysuria (principal)
CPT/HCPCS: 81000; 87077; 87088; 87186

== ENCOUNTER → 2020-05-11 | Outpatient (CLI) | payer MEDICARE, OTHER ==
[2020-05-11 14:11] LABS: BASOPHILS % (AUTO) 0 % (0-10); EOSINOPHILS # (AUTO) 0.3 10^3/uL (0.0-0.3); EOSINOPHILS % (AUTO) 2 % (0-10); HEMATOCRIT 30 % (35-52); HEMOGLOBIN 8.9 G/DL (11.5-16.0); LYMPHOCYTES % (AUTO) 7 % (12-44); MEAN CORPUSCULAR HEMOGLOBIN 23 PG (25-34); MEAN CORPUSCULAR HGB CONC 30 G/DL (32-36); MEAN CORPUSCULAR VOLUME 78 FL (80-99); MEAN PLATELET VOLUME 8.2 FL (7.4-10.4); MONOCYTES % (AUTO) 7 % (0-12); NEUTROPHILS # (AUTO) 11.7 X 10^3 (1.8-7.8); NEUTROPHILS % (AUTO) 83 % (42-75); PLATELET COUNT 528 10^3/uL (130-400); RED CELL DISTRIBUTION WIDTH 16.8 % (10.0-14.5); WHITE BLOOD COUNT 14.1 10^3/uL (4.3-11.0)
[2020-05-11 14:32] LABS: ALANINE AMINOTRANSFERASE 10 U/L (0-55); ALBUMIN 3.5 GM/DL (3.2-4.5); ALKALINE PHOSPHATASE 115 U/L (40-136); BILIRUBIN,TOTAL 0.3 MG/DL (0.1-1.0); BUN/CREATININE RATIO 10; CALCIUM 10.1 MG/DL (8.5-10.1); CARBON DIOXIDE 21 MMOL/L (21-32); CHLORIDE 101 MMOL/L (98-107); GFR ESTIMATED > 60; GLUCOSE 189 MG/DL (70-105); POTASSIUM 3.9 MMOL/L (3.6-5.0); SODIUM 135 MMOL/L (135-145); TOTAL PROTEIN 6.7 GM/DL (6.4-8.2)
== END ==
LOC: EDSTATUS 12-16 08:55 → ONC 13:55
PROVIDERS: ATTEND Internal Medicine Hematology & Oncology
DX: C34.01 Malignant neoplasm of right main bronchus (principal); E11.9 Type 2 diabetes mellitus without complications; K76.0 Fatty (change of) liver, not elsewhere classified; I25.10 Atherosclerotic heart disease of native coronary artery without angina pectoris; D64.9 Anemia, unspecified; G31.9 Degenerative disease of nervous system, unspecified; I67.82 Cerebral ischemia; E78.5 Hyperlipidemia, unspecified; Z92.3 Personal history of irradiation
CPT/HCPCS: 80053; 85025; G0463; 99213

== ENCOUNTER → 2020-06-26 | Outpatient (CLI) | payer OTHER ==
[2020-06-26 12:22] LABS: BILIRUBIN,URINE NEGATIVE (NEGATIVE); CLARITY,URINE CLEAR; COLOR,URINE YELLOW; GLUCOSE, URINE (UA) NEGATIVE (NEGATIVE); KETONES,URINE NEGATIVE (NEGATIVE); LEUKOCYTE ESTERASE ,URINE 3+ (NEGATIVE); NITRITE,URINE NEGATIVE (NEGATIVE); PH,URINE 6.5 (5-9); PROTEIN,URINE NEGATIVE (NEGATIVE)
[2020-06-26 12:33] LABS: BACTERIA,URINE NEGATIVE /HPF; RBC,URINE 0-2 /HPF; SQUAMOUS EPITHELIAL CELL,UR 0-2 /HPF; WBC,URINE TNTC /HPF
== END ==
LOC: HOSHH 12:16
PROVIDERS: ATTEND Internal Medicine
DX: C34.90 Malignant neoplasm of unspecified part of unspecified bronchus or lung (principal); I25.10 Atherosclerotic heart disease of native coronary artery without angina pectoris; E11.9 Type 2 diabetes mellitus without complications; E78.2 Mixed hyperlipidemia; M15.9 Polyosteoarthritis, unspecified; R30.0 Dysuria
CPT/HCPCS: 81000; 87088

== ENCOUNTER → 2020-08-27 | Outpatient (CLI) | payer OTHER, MEDICARE ==
[~2020-08-27] MED LIST changes: -PANT40TA3 PO; +PANT40TA52 PO
[2020-08-27 16:44] LABS: BILIRUBIN,URINE NEGATIVE (NEGATIVE); CLARITY,URINE CLEAR; COLOR,URINE YELLOW; GLUCOSE, URINE (UA) NEGATIVE (NEGATIVE); KETONES,URINE NEGATIVE (NEGATIVE); LEUKOCYTE ESTERASE ,URINE 3+ (NEGATIVE); NITRITE,URINE NEGATIVE (NEGATIVE); PROTEIN,URINE NEGATIVE (NEGATIVE)
[2020-08-27 17:12] LABS: BACTERIA,URINE FEW /HPF; WBC,URINE TNTC /HPF
== END ==
LOC: LABNPT 16:37
PROVIDERS: ATTEND Internal Medicine
DX: C34.90 Malignant neoplasm of unspecified part of unspecified bronchus or lung (principal); I25.10 Atherosclerotic heart disease of native coronary artery without angina pectoris; E11.9 Type 2 diabetes mellitus without complications; E78.2 Mixed hyperlipidemia; M15.9 Polyosteoarthritis, unspecified; R30.0 Dysuria
CPT/HCPCS: 81000; 87077; 87088; 87186

== ENCOUNTER → 2020-09-14 | Outpatient (CLI) | payer OTHER, MEDICARE ==
[2020-09-14 11:36] LABS: BILIRUBIN,URINE NEGATIVE (NEGATIVE); CLARITY,URINE CLOUDY; COLOR,URINE YELLOW; GLUCOSE, URINE (UA) NEGATIVE (NEGATIVE); KETONES,URINE NEGATIVE (NEGATIVE); LEUKOCYTE ESTERASE ,URINE 1+ (NEGATIVE); NITRITE,URINE NEGATIVE (NEGATIVE); PROTEIN,URINE 1+ (NEGATIVE)
[2020-09-14 11:49] LABS: BACTERIA,URINE TRACE /HPF; HYALINE CASTS, URINE RARE /LPF; WBC,URINE 50-100 /HPF; YEAST,URINE MODERATE /HPF
== END ==
LOC: LABNPT 11:29
PROVIDERS: ATTEND Internal Medicine
DX: C34.90 Malignant neoplasm of unspecified part of unspecified bronchus or lung (principal); I25.10 Atherosclerotic heart disease of native coronary artery without angina pectoris; M15.9 Polyosteoarthritis, unspecified; E11.9 Type 2 diabetes mellitus without complications; E78.2 Mixed hyperlipidemia; R30.0 Dysuria
CPT/HCPCS: 81000; 87088